=== PATIENT | male | born 1965 | race Caucasian/White ===

== ENCOUNTER → 2017-02-20 | Outpatient (CLI) | payer MEDICARE ==
[2017-02-20 19:41] LABS: Appearance,CSF Clear
[2017-02-22 14:26] LABS: Immunoglobulin G 789 mg/dL (700 - 1600)
== END | disposition home or self-care (01) ==
LOC: LABWHC1 08:25
PROVIDERS: ATTEND Physician Assistant
DX: G35 Multiple sclerosis (principal)
CPT/HCPCS: 36415; 82040; 82042; 82784; 83873; 83916; 84157; 87476; 88108; 89050

== ENCOUNTER 2017-02-22 16:05 | Emergency (ER) | payer MEDICARE ==
[2017-02-22 16:17] VITALS: TEMP 98.3
[2017-02-22] MEDS ORDERED: CAFFEINE-SODIUM BENZOATE 500 MG in SODIUM CHLORIDE 0.9% 1,000 ML IVPB ONE (16:47)
[2017-02-22] MEDS ORDERED: MORPHINE SULFATE 4 MG/ML SYRINGE IV STA (16:48)
[2017-02-22] MEDS ORDERED: SODIUM CHLORIDE 0.9% 1,000 ML IV STA (16:48)
--- NOTE | 2017-02-22 16:51 | ED ---
General Adult HPI - General Chief complaint: Headache Stated complaint: Headache Time Seen by Provider: 02/22/17 16:31 Source: patient, RN notes reviewed Mode of arrival: ambulatory Limitations: no limitations - History of Present Illness Initial comments: 51-year-old male presents to the emergency department with a chief complaint of spinal headache. Patient had a lobar puncture by Dr. Carlin a Sunday. Patient states that and left he is laying flat he continues to have a headache. Patient states he does not follow-up with Dr. Kate and he is here. Patient states that he is not having any other symptoms. Patient denies any numbness and tingling in the legs. Patient denies any fever chills. Patient denies any cough cold symptoms. Patient denies any back pain with this. Patient was concerned due to his symptoms he thought that he should be evaluated.Patient denies any recent fever, chills, shortness of breath, chest pain, back pain, abdominal pain, nausea vomiting, numbness or tingling, dysuria or hematuria, constipation or diarrhea, visual changes, or any other current symptoms. - Related Data Home Medications Medication Instructions Recorded Confirmed Mirtazapine [Remeron] 30 mg PO HS 11/27/13 02/22/17 Pantoprazole Sodium [Protonix] 40 mg PO DAILY 11/27/13 02/22/17 clonazePAM [KlonoPIN] 1 mg PO BID 11/27/13 02/22/17 risperiDONE [RisperDAL] 1 mg PO HS 11/27/13 02/22/17 HYDROcodone/APAP 7.5-325MG [[place] 1 tab PO DAILY PRN 09/15/15 02/22/17 7.5-325] Morphine Sulfate ER [Ms Contin] 30 mg PO BID 09/15/15 02/22/17 rOPINIRole HCL [Requip] 0.5 mg PO HS 10/14/15 02/22/17 Baclofen [Lioresal] 20 mg PO TID 12/21/15 02/22/17 Allergies Allergy/AdvReac Type Severity Reaction Status Date / Time No Known Allergies Allergy Verified 02/22/17 16:30 Review of Systems ROS Statement: Those systems with pertinent positive or pertinent negative responses have been documented in the HPI. ROS Other: All systems not noted in ROS Statement are negative. Past Medical History Past Medical History: Eye Disorder, Musculoskeletal Disorder, Neurologic Disorder Additional Past Medical History / Comment(s): Multiple sclerosis. currently on steriod dose pack for bursitis. USES A CANE TO AMBULATE, HAS DOUBLE VISION. CHRONIC BACK NECK PAIN. HAD SPINAL STIMULATOR, THEN REMOVED; Migraine headache. Crohn's disease. History of Any Multi-Drug Resistant Organisms: MRSA Date of last positivie culture/infection: 2014 MDRO Source:: lower back Past Surgical History: Appendectomy, Back Surgery, Bowel Resection, Hernia Repair Additional Past Surgical History / Comment(s): ILEOCECTOMY. CERVICAL FUSION. SPINAL STIMULATOR implantation, revision and removal. FOREIGN BODY REMOVED RT CHEST WALL. 10/18/2015 wire removed from back. (from stimulator) Past Anesthesia/Blood Transfusion Reactions: Previous Problems w/ Anesthesia Additional Past Anesthesia/Blood Transfusion Reaction / Comment(s): STATES TAKES A LONG TIME TO WAKE UP Past Psychological History: Anxiety, Depression Smoking Status: Current every day smoker Past Alcohol Use History: None Reported Past Drug Use History: None Reported - Past Family History Father Family Medical History: Cancer, Diabetes Mellitus Additional Family Medical History / Comment(s): CABG-TRIPLE BYPASS, Mother Family Medical History: Cancer, CVA/TIA, Diabetes Mellitus Additional Family Medical History / Comment(s): Stroke General Exam - General Exam Comments Initial Comments: General: The patient is awake and alert, in no distress, and does not appear acutely ill. Eye: Pupils are equal, round and reactive to light, extra-ocular movements are intact; there is normal conjunctiva bilaterally. No signs of icterus. Ears, nose, mouth and throat: There are moist mucous membranes. Neck: The neck is supple, there is no tenderness. Cardiovascular: There is a regular rate and rhythm. No murmur, rub or gallop is appreciated. Respiratory: Lungs are clear to auscultation, respirations are non-labored, breath sounds are equal. No wheezes, stridor, rales, or rhonchi. Gastrointestinal: Soft, non-distended, non-tender abdomen without masses or organomegaly noted. There is no rebound or guarding present. No CVA tenderness. Bowel sounds are unremarkable. Back: There is no tenderness to palpation in the midline. There is no obvious deformity. No rashes noted. Musculoskeletal: Normal ROM, no tenderness, There is no pedal edema. There is no calf tenderness or swelling. Sensation intact. Pulses equal bilaterally 2+. Neurological: CN II-XII intact, There are no obvious motor or sensory deficits. Coordination appears grossly intact. Speech is normal. Skin: Skin is warm and dry and no rashes or lesions are noted. Psychiatric: Cooperative, appropriate mood & affect, normal judgment. Limitations: no limitations Course Vital Signs 02/22/17 02/22/17 02/22/17 16:14 18:06 19:05 Temperature 98.3 F Pulse Rate 70 57 L 59 L Respiratory 18 18 18 Rate Blood Pressure 116/69 100/59 113/62 O2 Sat by Pulse 99 97 99 Oximetry - Reevaluation(s) Reevaluation #1: 02/22/17 19:09 Patient was reassessed and states that he is feeling better at this time. Medical Decision Making - Medical Decision Making 51-year-old male presents emergency Department with a chief complaint of headache following lumbar puncture. Anesthesiology was contacted by Dr. Harris and they state they will not do the blood patch at this time due to the fact they did not do the procedure At this time patient was given medications that did somewhat help his headache. We discussed seems to follow-up with Dr. Carlin for additional care. Patient states that Dr. Carlin is out of town until Sunday. He was informed that if tomorrow he wakes up with the same type symptoms return to the emergency department in the morning for further care. We discussed return parameters all patient's questions. They state John management plan. At this time they will be discharged home. Disposition Clinical Impression: Spinal headache Disposition: HOME SELF-CARE Condition: Stable Instructions: Acute Headache (ED) Additional Instructions: Please use medication as discussed. Please follow up with family doctor if symptoms have not improved over the next two days. Please return to the emergency room if your symptoms increase or worsen or for any other concerns. Referrals: Mack Fox DO [Primary Care Provider] - 1-2 days Juan Carlin MD [STAFF PHYSICIAN] - 1-2 days
[2017-02-22] MEDS ORDERED: METOCLOPRAMIDE 5 MG/ML 2 ML VIAL IVP STA (18:07)
[2017-02-22] MEDS ORDERED: HYDROmorphone 1 MG/ML 1 ML SYRINGE IVP STA ×2 (18:07→19:17)
[2017-02-22] MEDS ORDERED: diphenhydrAMINE 50 MG/ML 1 ML VIAL IVP STA (18:07)
[2017-02-22 19:59] VITALS: BP 112/70; PULSE 64; RESP 16
== END 2017-02-22 20:09 | disposition home or self-care (01) ==
LOC: EC 16:05
DX: G97.1 Other reaction to spinal and lumbar puncture (principal); F32.9 Major depressive disorder, single episode, unspecified; F41.9 Anxiety disorder, unspecified; F17.200 Nicotine dependence, unspecified, uncomplicated; Z79.891 Long term (current) use of opiate analgesic; Z79.899 Other long term (current) drug therapy
CPT/HCPCS: 99284; 96365; 96375 ×4; 96376; J2270; J1200; J2765; J1170

== ENCOUNTER → 2017-02-23 | Outpatient (CLI) | payer MEDICARE ==
--- NOTE | 2017-02-24 00:28 | MR ---
EXAMINATION TYPE: MR brain/cspine wo/w DATE OF EXAM: 02/23/2017 COMPARISON: 10/20/1715 HISTORY: Follow up for MS. TECHNIQUE: Multiplanar, multisequence images of the brain and brainstem is performed without and with IV contras t, utilizing 7.5 mL intravenous Gadavist . FINDINGS: There are numerous tiny foci that measure 3 to 4 mm at the sánchez-white matter junction of deanna th cerebral hemispheres and more noticeable in the frontal lobes. The total number is approximately 2 0. I see no lesions around the lateral ventricles. The corpus callosum appears normal. There is no mi dline shift. There is no sign of intracranial hemorrhage. Ventricles have normal size. Brainstem is i ntact. Sella turcica appears normal. The contrast images show no pathologic enhancement. There is no evidence of acute cortical infarct. The cervical vertebra fairly normal alignment. There is anterior fusion surgery at C6-7. Cervical spi nal cord has fairly normal signal pattern. There is no evidence of edema. There is no spinal stenosis . There is no pathologic enhancement in the cervical spine. IMPRESSION: Numerous high relatively small signal foci on the T2 and FLAIR images at the sánchez-white m atter junction predominantly in the frontal lobes. This appears stable compared to old MR scan. This is not a typical pattern for demyelinating disease. There is a normal-appearing corpus callosum. Normal MRI scan of the cervical spine for demyelinating disease. Previous anterior fusion surgery. No spinal stenosis. No fracture. No significant change compared to old exam.
== END | disposition home or self-care (01) ==
LOC: RADMRIMAIN 20:06
PROVIDERS: ATTEND Physician Assistant
DX: G35 Multiple sclerosis (principal); M54.2 Cervicalgia; Z98.1 Arthrodesis status
CPT/HCPCS: 70553; 72156; A9581

== ENCOUNTER 2018-03-16 14:21 | Inpatient (IN) | payer MEDICARE ==
[2018-03-16] MEDS ORDERED: HYDROmorphone 1 MG/ML 1 ML SYRINGE IVP STA (15:42)
[2018-03-16] MEDS ORDERED: ONDANSETRON 4 MG/2 ML VIAL IVP STA (15:42)
[2018-03-16] MEDS ORDERED: ACETAMINOPHEN TAB 500 MG TAB PO STA (15:43)
[2018-03-16] MEDS: SODIUM CHLORIDE 0.9% 500 ML IV SCH ×2 (15:53→15:54)
[2018-03-16 15:54] LABS: Basophils % (A) 0 %; Eosinophils % (A) 0 %; HCT 39.8 % (39.0-53.0); HGB 13.3 gm/dL (13.0-17.5); Lymphocytes # (A) 2.3 k/uL (1.0-4.8); Lymphocytes % (A) 16 %; MCH 31.1 pg (25.0-35.0); MCHC 33.4 g/dL (31.0-37.0); MCV 93.2 fL (80.0-100.0); Mean Platelet Volume 7.2; Monocytes % (A) 7 %; Neutrophils # (A) 10.8 k/uL (1.3-7.7); Neutrophils % (A) 75 %; Platelet Count 301 k/uL (150-450); RBC 4.27 m/uL (4.30-5.90); RDW 12.8 % (11.5-15.5); WBC 14.5 k/uL (3.8-10.6)
[2018-03-16 16:04] LABS: ALT 27 U/L (21-72); AST 57 U/L (17-59); Albumin 3.8 g/dL (3.5-5.0); Alkaline Phosphatase 87 U/L (38-126); Anion Gap 10 mmol/L; Blood Urea Nitrogen 6 mg/dL (9-20); Calcium 9.7 mg/dL (8.4-10.2); Carbon Dioxide 25 mmol/L (22-30); Chloride 104 mmol/L (98-107); Glucose 92 mg/dL (74-99); Partial Thromboplastin Time 23.8 sec (22.0-30.0); Potassium 3.7 mmol/L (3.5-5.1); Prothrombin Time 9.8 sec (9.0-12.0); Sodium 139 mmol/L (137-145); Total Bilirubin 0.2 mg/dL (0.2-1.3); Total Protein 6.4 g/dL (6.3-8.2)
[2018-03-16 16:17] LABS: Appearance,Urine Clear (Clear); Bilirubin,Urine Negative (Negative); Blood,Urine Negative (Negative); Color,Urine Yellow; Glucose,Urine (UA) Negative (Negative); Ketones,Urine Negative (Negative); Leukocyte Esterase,Urine Negative (Negative); Nitrite,Urine Negative (Negative); Protein,Urine Negative (Negative); Specific Gravity,Urine 1.012 (1.001-1.035); Urobilinogen,Urine <2.0 mg/dL (<2.0)
--- NOTE | 2018-03-16 16:35 | XR ---
EXAMINATION TYPE: XR hand complete RT DATE OF EXAM: 03/16/2018 COMPARISON: NONE HISTORY: Pain and swelling TECHNIQUE: 3 views FINDINGS: There is soft tissue swelling on the dorsum of the hand. Metacarpals are intact. I see no f racture nor dislocation. There are no erosions. IMPRESSION: Soft tissue swelling. No fracture seen.
[2018-03-16] MEDS ORDERED: PIPERACILLIN-TAZOBACTAM 3.375 GM in DEXTROSE/WATER 1 50ML.BAG IVPB STA (16:36)
--- NOTE | 2018-03-16 16:37 | XR ---
EXAMINATION TYPE: XR elbow complete RT DATE OF EXAM: 03/16/2018 COMPARISON: 06/18/2017 HISTORY: Pain and swelling TECHNIQUE: 3 views FINDINGS: There are skin yvette over the posterior ulna. I see no fracture nor dislocation. Joint sp aces are normal. There is satisfactory healing of the proximal ulna fracture compared to old exam. IMPRESSION: Satisfactory healing. No fracture seen. No complicating process seen.
--- NOTE | 2018-03-16 16:56 | ED ---
Upper Extremity HPI - General Chief Complaint: Extremity Injury, Upper Stated Complaint: Swelling S/p surgery Time Seen by Provider: 03/16/18 14:45 Source: patient, RN notes reviewed, old records reviewed Mode of arrival: ambulatory Limitations: no limitations - History of Present Illness Initial Comments: Patient is a 52-year-old male with chief complaint of left arm and elbow and hand swelling. Patient reports that yesterday he had plates and screws removed from his right elbow after a fracture. He reports he later developed bursitis and Patient had these removed by Dr. Hu yesterday. He states that since the surgery he came home he had an Cristofer wrap on the arm. He states that today he noticed some blistering in severe pain within the forearm as well as swelling extending into the hand. Patient reports severe pain with any range of motion of the elbow or wrist or hand. Patient denies any fever but had does have chills. MD Complaint: Injury to:: right - Related Data Home Medications Medication Instructions Recorded Confirmed Mirtazapine [Remeron] 30 mg PO HS 11/27/13 03/16/18 risperiDONE [RisperDAL] 2 mg PO HS 11/27/13 03/16/18 Baclofen [Lioresal] 20 mg PO TID 12/21/15 03/16/18 rOPINIRole HCL [Requip] 0.5 mg PO HS 06/18/17 03/16/18 HYDROcodone/APAP 5-325MG [[place] 2 tab PO Q6H PRN 03/16/18 03/16/18 5-325] Morphine Sulfate ER [Ms Contin] 15 mg PO Q12HR 03/16/18 03/16/18 Allergies Allergy/AdvReac Type Severity Reaction Status Date / Time No Known Allergies Allergy Verified 03/16/18 14:54 Review of Systems ROS Statement: Those systems with pertinent positive or pertinent negative responses have been documented in the HPI. ROS Other: All systems not noted in ROS Statement are negative. Past Medical History Past Medical History: Eye Disorder, Musculoskeletal Disorder, Neurologic Disorder Additional Past Medical History / Comment(s): Multiple sclerosis USES A CANE TO AMBULATE, falls. has had in past occasional DOUBLE VISION. CHRONIC BACK NECK PAIN. HAD SPINAL STIMULATOR, THEN REMOVED; Migraine headache. Crohn's disease.lt ear [place] History of Any Multi-Drug Resistant Organisms: MRSA Date of last positivie culture/infection: 2014 MDRO Source:: lower back Past Surgical History: Appendectomy, Back Surgery, Bowel Resection, Hernia Repair Additional Past Surgical History / Comment(s): CERVICAL FUSION. SPINAL STIMULATOR implantation, revision and removal. FOREIGN BODY REMOVED RT CHEST WALL. 10/18/2015 wire removed from back. (from stimulator) Past Anesthesia/Blood Transfusion Reactions: Previous Problems w/ Anesthesia Additional Past Anesthesia/Blood Transfusion Reaction / Comment(s): STATES TAKES A LONG TIME TO WAKE UP Past Psychological History: Depression Smoking Status: Current every day smoker Past Alcohol Use History: None Reported Past Drug Use History: None Reported - Past Family History Father Family Medical History: Cancer, Diabetes Mellitus Additional Family Medical History / Comment(s): CABG-TRIPLE BYPASS, Mother Family Medical History: Cancer, CVA/TIA, Diabetes Mellitus Additional Family Medical History / Comment(s): Stroke General Exam - General Exam Comments Initial Comments: This Patient is a 52-year-old male. Alert and oriented. Appears in moderate discomfort. Limitations: no limitations General appearance: alert, in no apparent distress Head exam: Present: atraumatic, normocephalic, normal inspection Eye exam: Present: normal appearance, PERRL, EOMI. Absent: scleral icterus, conjunctival injection, periorbital swelling ENT exam: Present: normal exam, mucous membranes moist Neck exam: Present: normal inspection. Absent: tenderness, meningismus, lymphadenopathy Respiratory exam: Present: normal lung sounds bilaterally. Absent: respiratory distress, wheezes, rales, rhonchi, stridor Cardiovascular Exam: Present: regular rate, normal rhythm, normal heart sounds. Absent: systolic murmur, diastolic murmur, rubs, gallop, clicks Extremities exam: Present: full ROM, normal capillary refill. Absent: normal inspection, tenderness, pedal edema, joint swelling, calf tenderness Right Elbow exam: Present: swelling, other (Patient has a blisterlike lesions over the skin. Each measuring less than 1 cm. Sporadic throughout the elbow through the distal forearm.). Absent: normal inspection (Hogan is a well- appearing incision site with gauze dressing over the elbow at this time.), full ROM (Patient is pain-free to motion of the elbow. Evidence of swelling.) Forearm Wrist exam: Present: tenderness, swelling. Absent: normal inspection, full ROM Hand Wrist exam: Present: full ROM. Absent: normal inspection (Patient has swelling over the hand. Pain with any range of motion.) Neurosensory exam: Present: 2-point discrimination Vascular: Present: normal capillary refill, radial pulse, ulnar pulse Back exam: Present: normal inspection Neurological exam: Present: alert, oriented X3, CN II-XII intact Psychiatric exam: Present: normal affect, normal mood Skin exam: Present: warm, dry, intact, normal color. Absent: rash Course Vital Signs 03/16/18 03/16/18 03/16/18 14:30 16:00 17:32 Temperature 97.8 F 97.5 F L 98.2 F Pulse Rate 79 63 61 Respiratory 18 18 18 Rate Blood Pressure 117/63 114/65 O2 Sat by Pulse 97 98 97 Oximetry Medical Decision Making - Medical Decision Making 53-year-old male presents emergency Department chief complaint of severe pain in the right elbow one day status post surgery by Dr. Hu. He had plates and screws removed after a fracture. He developed bursitis. Patient understands this is evidence of swelling of the elbow, as well as multiple blisterlike lesions over the hand and forearm. Patient's compartments are soft. Hand is swollen. Pulses obtained, We refill is less than 2 seconds. Patient was started on Zosyn due to elevated white blood cell count of 14,000, lactic acid of 2.1.. He has rigor while in the emergency department. No recorded temperature. Patient case discussed Dr. Lira. He also call Dr. Lira multiple times for coming to emergency department. Patient will be admitted at this time under his care. - Lab Data Result diagrams: 03/16/18 15:45 03/16/18 15:45 Lab Results 03/16/18 03/16/18 03/16/18 Range/Units 15:45 15:45 15:45 WBC 14.5 H (3.8-10.6) k/uL RBC 4.27 L (4.30-5.90) m/uL Hgb 13.3 (13.0-17.5) gm/dL Hct 39.8 (39.0-53.0) % MCV 93.2 (80.0-100.0) fL MCH 31.1 (25.0-35.0) pg MCHC 33.4 (31.0-37.0) g/dL RDW 12.8 (11.5-15.5) % Plt Count 301 (150-450) k/uL Neutrophils % 75 % Lymphocytes % 16 % Monocytes % 7 % Eosinophils % 0 % Basophils % 0 % Neutrophils # 10.8 H (1.3-7.7) k/uL Lymphocytes # 2.3 (1.0-4.8) k/uL Monocytes # 1.0 (0-1.0) k/uL Eosinophils # 0.0 (0-0.7) k/uL Basophils # 0.0 (0-0.2) k/uL PT (9.0-12.0) sec INR (<1.2) APTT (22.0-30.0) sec Sodium 139 (137-145) mmol/L Potassium 3.7 (3.5-5.1) mmol/L Chloride 104 (98-107) mmol/L Carbon Dioxide 25 (22-30) mmol/L Anion Gap 10 mmol/L BUN 6 L (9-20) mg/dL Creatinine 0.59 L (0.66-1.25) mg/dL Est GFR (CKD-EPI)AfAm >90 (>60 ml/min/1.73 sqM) Est GFR (CKD-EPI)NonAf >90 (>60 ml/min/1.73 sqM) Glucose 92 (74-99) mg/dL Plasma Lactic Acid Phong 2.1 H* (0.7-2.0) mmol/L Calcium 9.7 (8.4-10.2) mg/dL Total Bilirubin 0.2 (0.2-1.3) mg/dL AST 57 (17-59) U/L ALT 27 (21-72) U/L Alkaline Phosphatase 87 (38-126) U/L Total Protein 6.4 (6.3-8.2) g/dL Albumin 3.8 (3.5-5.0) g/dL Urine Color Urine Appearance (Clear) Urine pH (5.0-8.0) Ur Specific [place] (1.001-1.035) Urine Protein (Negative) Urine Glucose (UA) (Negative) Urine Ketones (Negative) Urine Blood (Negative) Urine Nitrite (Negative) Urine Bilirubin (Negative) Urine Urobilinogen (<2.0) mg/dL Ur Leukocyte Esterase (Negative) 03/16/18 03/16/18 Range/Units 15:45 15:50 WBC (3.8-10.6) k/uL RBC (4.30-5.90) m/uL Hgb (13.0-17.5) gm/dL Hct (39.0-53.0) % MCV (80.0-100.0) fL MCH (25.0-35.0) pg MCHC (31.0-37.0) g/dL RDW (11.5-15.5) % Plt Count (150-450) k/uL Neutrophils % % Lymphocytes % % Monocytes % % Eosinophils % % Basophils % % Neutrophils # (1.3-7.7) k/uL Lymphocytes # (1.0-4.8) k/uL Monocytes # (0-1.0) k/uL Eosinophils # (0-0.7) k/uL Basophils # (0-0.2) k/uL PT 9.8 (9.0-12.0) sec INR 1.0 (<1.2) APTT 23.8 (22.0-30.0) sec Sodium (137-145) mmol/L Potassium (3.5-5.1) mmol/L Chloride (98-107) mmol/L Carbon Dioxide (22-30) mmol/L Anion Gap mmol/L BUN (9-20) mg/dL Creatinine (0.66-1.25) mg/dL Est GFR (CKD-EPI)AfAm (>60 ml/min/1.73 sqM) Est GFR (CKD-EPI)NonAf (>60 ml/min/1.73 sqM) Glucose (74-99) mg/dL Plasma Lactic Acid Phong (0.7-2.0) mmol/L Calcium (8.4-10.2) mg/dL Total Bilirubin (0.2-1.3) mg/dL AST (17-59) U/L ALT (21-72) U/L Alkaline Phosphatase (38-126) U/L Total Protein (6.3-8.2) g/dL Albumin (3.5-5.0) g/dL Urine Color Yellow Urine Appearance Clear (Clear) Urine pH 6.0 (5.0-8.0) Ur Specific [place] 1.012 (1.001-1.035) Urine Protein Negative (Negative) Urine Glucose (UA) Negative (Negative) Urine Ketones Negative (Negative) Urine Blood Negative (Negative) Urine Nitrite Negative (Negative) Urine Bilirubin Negative (Negative) Urine Urobilinogen <2.0 (<2.0) mg/dL Ur Leukocyte Esterase Negative (Negative) - Radiology Data Radiology results: report reviewed Ultrasound is negative for DVT. X-ray of the hand shows evidence of soft tissue swelling. Elbow x-ray shows well appearing osseous structures. No evidence of any acute process. Disposition Clinical Impression: Swelling of right upper extremity, Leukocytosis, Status post surgery Disposition: ADMITTED IP TO THIS [facility] Condition: Stable Is patient prescribed a controlled substance at d/c from ED?: No Referrals: Mack Fox DO [Primary Care Provider] - 1-2 days Time of Disposition: 18:11
--- NOTE | 2018-03-16 17:20 | US ---
EXAMINATION TYPE: US venous doppler duplex UE RT DATE OF EXAM: 03/16/2018 COMPARISON: NONE CLINICAL HISTORY: Pain. Right arm and hand pain and swelling x 1 day following surgery SIDE PERFORMED: Right Right Arm: Appears negative for DVT IMPRESSION: There is patency of the subclavian axillary brachial vein. There is no evidence of deep venous thromb osis.
[2018-03-16] MEDS ORDERED: IBUPROFEN 400 MG TAB PO PRN (18:12)
[2018-03-16] MEDS ORDERED: KETOROLAC 30 MG/ML 1 ML VIAL IVP PRN (18:12)
[2018-03-16] MEDS ORDERED: ONDANSETRON 4 MG/2 ML VIAL IVP PRN (18:12)
[2018-03-16] MEDS ORDERED: ACETAMINOPHEN TAB 325 MG TAB PO PRN (18:12)
[2018-03-16] MEDS ORDERED: NALOXONE 0.4 MG/ML 1 ML VIAL IV PRN (18:12)
[2018-03-16] MEDS: PIPERACILLIN-TAZOBACTAM 3.375 GM in DEXTROSE/WATER 1 50ML.BAG IVPB SCH ×2 (18:29→23:39)
[2018-03-16] MEDS: SODIUM CHLORIDE 0.9% 1,000 ML IV SCH (18:30)
[2018-03-16] MEDS: HYDROmorphone 1 MG/ML 1 ML SYRINGE IVP PRN ×2 (18:31→22:30)
[2018-03-16 20:04] VITALS: TEMP 97.9
[2018-03-16] MEDS ORDERED: risperiDONE 1 MG TAB PO SCH (21:00)
[2018-03-16] MEDS ORDERED: MIRTAZAPINE 15 MG TAB PO SCH (21:00)
[2018-03-17] MEDS: HYDROmorphone 1 MG/ML 1 ML SYRINGE IVP PRN ×3 (01:51→08:32)
[2018-03-17] MEDS: SODIUM CHLORIDE 0.9% 1,000 ML IV SCH (04:49)
[2018-03-17 05:59] VITALS: BP 108/69; PULSE 67; RESP 18
[2018-03-17] MEDS: PIPERACILLIN-TAZOBACTAM 3.375 GM in DEXTROSE/WATER 1 50ML.BAG IVPB SCH (08:30)
[2018-03-17] MEDS ORDERED: PANTOPRAZOLE 40 MG/10 ML VIAL IV SCH (09:00)
--- NOTE | 2018-03-17 09:46 | P.HPOR ---
History of Present Illness H&P Date: 03/17/18 The patient is a 52-year-old male who is a patient of Dr. Polk. The patient sustained an isolated right olecranon fracture this past July and underwent open reduction and internal fixation. He had symptomatic hardware and a painful bursa developed over the olecranon. He underwent hardware removal this past Sunday as an outpatient procedure. On Sunday he developed significant pain, swelling, and blistering throughout his right arm. We initially attempted to improve his symptoms by loosening the dressing and elevating his arm. He had continued pain and was sent to the emergency department. He had an elevated white count and appeared to be in generalized malaise according to the emergency department so he was admitted overnight for observation. This morning he is improved but continues to have pain and swelling in the arm. He says the swelling has gone down significantly in the blistering has resolved. He denies fevers or chills. Past Medical History Past Medical History: Eye Disorder, Musculoskeletal Disorder, Neurologic Disorder Additional Past Medical History / Comment(s): Multiple sclerosis USES A CANE TO AMBULATE, falls. has had in past occasional DOUBLE VISION. CHRONIC BACK NECK PAIN. HAD SPINAL STIMULATOR, THEN REMOVED; Migraine headache. Crohn's disease.lt ear [place] History of Any Multi-Drug Resistant Organisms: MRSA Date of last positivie culture/infection: 2014 MDRO Source:: lower back Past Surgical History: Appendectomy, Back Surgery, Bowel Resection, Hernia Repair Additional Past Surgical History / Comment(s): CERVICAL FUSION. SPINAL STIMULATOR implantation, revision and removal. FOREIGN BODY REMOVED RT CHEST WALL. 10/18/2015 wire removed from back. (from stimulator) Past Anesthesia/Blood Transfusion Reactions: Previous Problems w/ Anesthesia Additional Past Anesthesia/Blood Transfusion Reaction / Comment(s): STATES TAKES A LONG TIME TO WAKE UP Past Psychological History: Depression Additional Psychological History / Comment(s): pt lives with and 2 children. uses cane when up. no home cares services,. Smoking Status: Current every day smoker Past Alcohol Use History: None Reported Additional Past Alcohol Use History / Comment(s): Smoker Since Age 13, smoked 1ppd now down to 1/2 ppd. Past Drug Use History: None Reported - Past Family History Father Family Medical History: Cancer, Diabetes Mellitus Additional Family Medical History / Comment(s): CABG-TRIPLE BYPASS, Mother Family Medical History: Cancer, CVA/TIA, Diabetes Mellitus Additional Family Medical History / Comment(s): Stroke Medications and Allergies Home Medications Medication Instructions Recorded Confirmed Type Mirtazapine [Remeron] 30 mg PO HS 11/27/13 03/16/18 History risperiDONE [RisperDAL] 2 mg PO HS 11/27/13 03/16/18 History Baclofen [Lioresal] 20 mg PO TID 12/21/15 03/16/18 History rOPINIRole HCL [Requip] 0.5 mg PO HS 06/18/17 03/16/18 History HYDROcodone/APAP 5-325MG [[place] 2 tab PO Q6H PRN 03/16/18 03/16/18 History 5-325] Morphine Sulfate ER [Ms Contin] 15 mg PO Q12HR 03/16/18 03/16/18 History Allergies Allergy/AdvReac Type Severity Reaction Status Date / Time No Known Allergies Allergy Verified 03/16/18 14:54 Physical Examination On exam the patient is in no apparent distress and is alert and able to answer questions. His head is normocephalic and atraumatic. He demonstrates nonlabored breathing with symmetric chest expansion. His abdomen is soft and nonobese. A focused examination of the right arm was conducted. On inspection there is mild swelling throughout the arm but no blistering. There is a healing incision over the olecranon with yvette in place. There is swelling within the olecranon bursa. There is no blistering and only minimal erythema. The arm and forearm are soft and easily compressible. There is no pain with passive range of motion of the wrist or fingers. Results - Labs Labs: Abnormal Lab Results - Last 24 Hours (Table) 03/16/18 03/16/18 03/16/18 Range/Units 15:45 15:45 15:45 WBC 14.5 H (3.8-10.6) k/uL RBC 4.27 L (4.30-5.90) m/uL Neutrophils # 10.8 H (1.3-7.7) k/uL BUN 6 L (9-20) mg/dL Creatinine 0.59 L (0.66-1.25) mg/dL Plasma Lactic Acid Phong 2.1 H* (0.7-2.0) mmol/L Microbiology - Last 24 Hours (Table) 03/16/18 15:50 Urine Culture - Preliminary Urine,Voided H & H 03/16/18 Range/Units 15:45 Hgb 13.3 (13.0-17.5) gm/dL Hct 39.8 (39.0-53.0) % Coagulation 03/16/18 Range/Units 15:45 INR 1.0 (<1.2) Result Diagrams: 03/16/18 15:45 03/16/18 15:45 Assessment and Plan (1) Status post surgery Current Visit: Yes Status: Acute Code(s): Z98.890 - OTHER SPECIFIED POSTPROCEDURAL STATES SNOMED Code(s): 747613706 (2) Swelling of right upper extremity Current Visit: Yes Status: Acute Code(s): M79.89 - OTHER SPECIFIED SOFT TISSUE DISORDERS SNOMED Code(s): 170640469 (3) Fracture of right elbow Current Visit: No Status: Acute Priority: Medium Code(s): S42.401A - UNSP FRACTURE OF LOWER END OF RIGHT HUMERUS, INIT SNOMED Code(s): 478904671 Plan: The patient has improved with IV pain medication and antibiotics. He feels better this morning and his swelling is significantly improved. We will plan on discharging him home on oral antibiotics. The patient is to follow up with Dr. Hu in the office in the next 1-2 days.
== END 2018-03-17 12:34 | disposition home or self-care (01) | DRG 556 ==
LOC: EC 14:21 → 4MS4W 18:15
PROVIDERS: ADMIT Orthopaedic Surgery; ATTEND Orthopaedic Surgery
DX: M79.89 Other specified soft tissue disorders (principal); K50.90 Crohn's disease, unspecified, without complications; D72.829 Elevated white blood cell count, unspecified; F17.210 Nicotine dependence, cigarettes, uncomplicated; F32.9 Major depressive disorder, single episode, unspecified; G35 Multiple sclerosis; G43.909 Migraine, unspecified, not intractable, without status migrainosus; H53.2 Diplopia; M54.2 Cervicalgia; G89.29 Other chronic pain; M54.9 Dorsalgia, unspecified; H91.92 Unspecified hearing loss, left ear; Z79.899 Other long term (current) drug therapy; Z86.14 Personal history of Methicillin resistant Staphylococcus aureus infection; Z91.81 History of falling; Z90.49 Acquired absence of other specified parts of digestive tract; Z82.3 Family history of stroke; Z83.3 Family history of diabetes mellitus; Z82.49 Family history of ischemic heart disease and other diseases of the circulatory system; Z80.9 Family history of malignant neoplasm, unspecified
CPT/HCPCS: 36415; 80053; 81003; 83605; 85025; 85610; 85730; 87040; 87086; 94760; 96365; 96375; 96376; 99285

== ENCOUNTER 2020-04-17 17:30 | Observation (INO) | payer MEDICARE ==
[2020-04-17] MEDS ORDERED: ASPIRIN 81 MG PO STA (18:24)
--- NOTE | 2020-04-17 18:27 | ED ---
Chest Pain HPI - General Chief Complaint: Chest Pain Stated Complaint: chest pain Time Seen by Provider: 04/17/20 17:37 Source: patient Mode of arrival: ambulatory Limitations: no limitations - History of Present Illness Initial Comments: The patient is a 54-year-old male with past history of MS, COPD who presents emergency room with reported sudden onset of chest pain which started approximately 2 hours ago. Reports that he was at home, sitting down when he had sudden onset of the pain. Is located over the right head his chest and radiates to his right arm and right jaw. Pain was 10 out of 10 presentation. Reports that his only mildly improved. He did take a baby aspirin. No ripping or tearing sensation to his back. Pain is not reproducible. Denies any unilateral numbness or tingling. Does admit to pleuritic chest pain. No history of DVT or PE. No calf pain or swelling. No family history of blood clotting disorders. Denies fevers, cough or hemoptysis. Denies any associated shortness of breath. No nausea or vomiting. No other alleviating, precipitating or modifying factors - Related Data Home Medications Medication Instructions Recorded Confirmed Baclofen [Lioresal] 20 mg PO BID 12/21/15 04/17/20 rOPINIRole HCL [Requip] 0.5 mg PO HS 06/18/17 04/17/20 DULoxetine HCL [Cymbalta] 30 mg PO DAILY 04/17/20 04/17/20 HYDROcodone/APAP 7.5-325MG [[place] 1 tab PO TID PRN 04/17/20 04/17/20 7.5-325] Mirtazapine [Remeron] 30 mg PO HS 04/17/20 04/17/20 Pantoprazole Sodium [Protonix] 40 mg PO DAILY 04/17/20 04/17/20 risperiDONE 3 mg PO HS 04/17/20 04/17/20 Previous Rx's Medication Instructions Recorded Ibuprofen [Motrin] 800 mg PO TID #15 tab 04/20/20 Nicotine 14Mg/24Hr Patch [Habitrol] 1 patch TRANSDERM DAILY #30 patch 04/20/20 predniSONE 10 mg PO DIRECTED #30 tab 04/20/20 Allergies Allergy/AdvReac Type Severity Reaction Status Date / Time No Known Allergies Allergy Verified 04/17/20 18:27 Review of Systems ROS Statement: Those systems with pertinent positive or pertinent negative responses have been documented in the HPI. ROS Other: All systems not noted in ROS Statement are negative. EKG Findings - EKG Comments: EKG Findings:: EKG demonstrates sinus rhythm with occasional PVCs. Rate of 77. When necessary interval 148. QRS 82. QTC of 423. No acute ST segment elevations or depressions concerning for ischemic changes Past Medical History Past Medical History: Eye Disorder, Musculoskeletal Disorder, Neurologic Disorder Additional Past Medical History / Comment(s): Multiple sclerosis USES A CANE TO AMBULATE, falls. has had in past occasional DOUBLE VISION. CHRONIC BACK NECK PAIN. HAD SPINAL STIMULATOR, THEN REMOVED; Migraine headache. Crohn's disease.lt ear [place] History of Any Multi-Drug Resistant Organisms: MRSA Date of last positivie culture/infection: 2014 MDRO Source:: lower back Past Surgical History: Appendectomy, Back Surgery, Bowel Resection, Hernia Repair Additional Past Surgical History / Comment(s): CERVICAL FUSION. SPINAL STIMULATOR implantation, revision and removal. FOREIGN BODY REMOVED RT CHEST WALL. 10/18/2015 wire removed from back. (from stimulator) Past Anesthesia/Blood Transfusion Reactions: Previous Problems w/ Anesthesia Additional Past Anesthesia/Blood Transfusion Reaction / Comment(s): STATES TAKES A LONG TIME TO WAKE UP Past Psychological History: Depression Smoking Status: Current every day smoker Past Alcohol Use History: None Reported Past Drug Use History: None Reported - Past Family History Father Family Medical History: Cancer, Diabetes Mellitus Additional Family Medical History / Comment(s): CABG-TRIPLE BYPASS, Mother Family Medical History: Cancer, CVA/TIA, Diabetes Mellitus Additional Family Medical History / Comment(s): Stroke General Exam Limitations: no limitations General appearance: alert, in no apparent distress Head exam: Present: atraumatic, normocephalic, normal inspection Eye exam: Present: normal appearance, PERRL, EOMI. Absent: scleral icterus, conjunctival injection, periorbital swelling ENT exam: Present: normal exam, mucous membranes moist Neck exam: Present: normal inspection. Absent: tenderness, meningismus, lymphadenopathy Respiratory exam: Present: normal lung sounds bilaterally. Absent: respiratory distress, wheezes, rales, rhonchi, stridor Cardiovascular Exam: Present: regular rate, normal rhythm, normal heart sounds. Absent: systolic murmur, diastolic murmur, rubs, gallop, clicks GI/Abdominal exam: Present: soft, normal bowel sounds. Absent: distended, tenderness, guarding, rebound, rigid Extremities exam: Present: normal inspection, full ROM, normal capillary refill. Absent: tenderness, pedal edema, joint swelling, calf tenderness Back exam: Present: normal inspection Neurological exam: Present: alert, oriented X3, CN II-XII intact Psychiatric exam: Present: normal affect, normal mood Skin exam: Present: warm, dry, intact, normal color. Absent: rash Course Vital Signs 04/17/20 04/17/20 04/17/20 17:32 18:55 20:06 Temperature 98.2 F Pulse Rate 79 67 70 Respiratory 20 12 12 Rate Blood Pressure 130/86 112/74 118/83 O2 Sat by Pulse 100 95 98 Oximetry 04/17/20 20:47 Temperature 98.1 F Pulse Rate 71 Respiratory 14 Rate Blood Pressure 123/75 O2 Sat by Pulse 98 Oximetry Chest Pain MDM - MDM Upon arrival the patient is placed in room 8. A thorough history and physical exam was performed. Peripheral IV is established. The patient is given 3 additional baby aspirin and a sublingual nitro. A 12-lead EKG was performed. Laboratory studies were conducted. D-dimer is elevated at 0.7. First troponin is negative. Chest x-ray was performed which does demonstrate pulmonary emphysema with some scarring and atelectasis. Because of his elevated d-dimer we did perform a CT angiography which demonstrates no heart failure. Some pleural and pulmonary scarring that has progressed compared old exams. Patient is reevaluated and continues to have persistent pain. She was given morphine for pain control. I did discuss the diagnosis, differential and treatment options. Due to his persistent pain and history of cardiac myopathy I did zuleyma mm[facility] hospital admission report patient did agree to. I discussed the case with Dr. Upton who agreed to admission. Patient is currently awaiting a bed on the floor Disposition Clinical Impression: Chest pain Disposition: ADMITTED IP TO THIS HOSP Condition: Stable Decision to Admit Reason: Admit from EC Decision Date: 04/17/20 Decision Time: 20:18
[2020-04-17] MEDS: NITROGLYCERIN SL TABS 0.4 MG TAB SUBLINGUAL STA ×2 (18:36→18:54)
[2020-04-17 18:51] LABS: Basophils # (A) 0.1 k/uL (0-0.2); Basophils % (A) 1 %; Eosinophils # (A) 0.2 k/uL (0-0.7); Eosinophils % (A) 2 %; HCT 44.8 % (39.0-53.0); HGB 14.5 gm/dL (13.0-17.5); Lymphocytes # (A) 2.6 k/uL (1.0-4.8); Lymphocytes % (A) 26 %; MCH 31.8 pg (25.0-35.0); MCHC 32.4 g/dL (31.0-37.0); MCV 97.9 fL (80.0-100.0); Mean Platelet Volume 7.8; Monocytes # (A) 0.8 k/uL (0-1.0); Monocytes % (A) 8 %; Neutrophils % (A) 61 %; Platelet Count 313 k/uL (150-450); RBC 4.58 m/uL (4.30-5.90); RDW 12.5 % (11.5-15.5); WBC 9.8 k/uL (3.8-10.6)
[2020-04-17 19:00] LABS: ALT 10 U/L (4-49); AST 19 U/L (17-59); African American GFR (CKD) >90 (>60 ml/min/1.73 sqM); Albumin 4.1 g/dL (3.5-5.0); Alkaline Phosphatase 92 U/L (38-126); Anion Gap 8 mmol/L; Blood Urea Nitrogen 8 mg/dL (9-20); Calcium 9.7 mg/dL (8.4-10.2); Carbon Dioxide 26 mmol/L (22-30); Chloride 103 mmol/L (98-107); Glucose 110 mg/dL (74-99); Non-African American GFR(CKD) >90 (>60 ml/min/1.73 sqM); Potassium 4.2 mmol/L (3.5-5.1); Sodium 137 mmol/L (137-145); Total Bilirubin 0.5 mg/dL (0.2-1.3); Total Protein 6.8 g/dL (6.3-8.2)
[2020-04-17 19:06] LABS: INR 0.9 (<1.2); Partial Thromboplastin Time 26.8 sec (22.0-30.0); Prothrombin Time 9.4 sec (9.0-12.0)
[2020-04-17 19:14] LABS: D-Dimer 0.7 mg/L FEU (<0.60)
--- NOTE | 2020-04-17 19:53 | CT ---
EXAMINATION TYPE: CT chest angio for PE DATE OF EXAM: 04/17/2020 COMPARISON: None HISTORY: chest pain, elevated d dimer CT DLP: 362.4 mGycm Automated exposure control for dose reduction was used. CONTRAST: Performed with IV Contrast, patient injected with 100 mL of Isovue 370. There are 3-D post processed images. There is diffuse bullous pulmonary emphysema. This is more noticeable in the right upper lobe. There is 1 cm calcified granuloma adjacent to the pleura in the lateral right upper lobe. There is some mil d scarring and atelectasis at the lung bases. There is no pleural effusion. Heart size is normal. The re is no pericardial effusion. Thoracic aorta is atheromatous. There is no aneurysm or dissection. There is normal contrast opacific ation of the pulmonary arteries. There are no filling defects. The bony thorax is intact. There is no compression fracture. IMPRESSION: No evidence of pulmonary embolism. Pulmonary emphysema with some scarring and atelectasis at the lung bases.
--- NOTE | 2020-04-17 19:57 | XR ---
EXAMINATION TYPE: XR chest 2V DATE OF EXAM: 04/17/2020 COMPARISON: NONE HISTORY: Elbow pain TECHNIQUE: 2 views FINDINGS: Heart is normal. Lungs are clear of consolidation. There are no hilar masses. The bony thor ax is intact. There are chest leads. There is some minimal pleural thickening at the posterior lung b ases on the lateral view. There is pleural thickening at the right lung apex. IMPRESSION: No heart failure. There is some pleural and pulmonary scarring that has progressed compar ed to old exams. Normal heart.
[2020-04-17] MEDS ORDERED: MORPHINE SULFATE 4 MG/ML SYRINGE IVP STA (20:00)
[2020-04-17] MEDS ORDERED: NALOXONE 0.4 MG/ML 1 ML VIAL IV PRN (20:18)
[2020-04-17] MEDS: MIRTAZAPINE 15 MG TAB PO SCH (22:11)
[2020-04-17] MEDS: BACLOFEN 10 MG TAB PO SCH (22:11)
[2020-04-17] MEDS: risperiDONE 1 MG TAB PO SCH (22:11)
[2020-04-17] MEDS: HYDROcodone/APAP 7.5-325MG 1 EACH TAB PO PRN (22:16)
[2020-04-18] MEDS: MORPHINE SULFATE 4 MG/ML SYRINGE IV PRN ×5 (03:03→21:18)
[2020-04-18 05:47] LABS: Basophils # (A) 0.1 k/uL (0-0.2); Basophils % (A) 1 %; Eosinophils # (A) 0.2 k/uL (0-0.7); Eosinophils % (A) 2 %; HCT 44.8 % (39.0-53.0); HGB 14.2 gm/dL (13.0-17.5); Lymphocytes # (A) 2.1 k/uL (1.0-4.8); Lymphocytes % (A) 28 %; MCH 31.9 pg (25.0-35.0); MCHC 31.6 g/dL (31.0-37.0); MCV 100.7 fL (80.0-100.0); Mean Platelet Volume 7.7; Monocytes # (A) 0.6 k/uL (0-1.0); Monocytes % (A) 8 %; Neutrophils # (A) 4.5 k/uL (1.3-7.7); Neutrophils % (A) 58 %; Platelet Count 281 k/uL (150-450); RBC 4.45 m/uL (4.30-5.90); RDW 12.6 % (11.5-15.5); WBC 7.7 k/uL (3.8-10.6)
[2020-04-18 06:03] LABS: African American GFR (CKD) >90 (>60 ml/min/1.73 sqM); Anion Gap 3 mmol/L; Blood Urea Nitrogen 11 mg/dL (9-20); Calcium 9.4 mg/dL (8.4-10.2); Carbon Dioxide 28 mmol/L (22-30); Chloride 104 mmol/L (98-107); Glucose 84 mg/dL (74-99); Non-African American GFR(CKD) >90 (>60 ml/min/1.73 sqM); Potassium 4.6 mmol/L (3.5-5.1); Sodium 135 mmol/L (137-145)
[2020-04-18] MEDS: BACLOFEN 10 MG TAB PO SCH ×2 (08:01→20:29)
[2020-04-18] MEDS: DULoxetine HCL 30 MG CAPSULE.DR PO SCH (08:01)
[2020-04-18] MEDS: PANTOPRAZOLE 40 MG TABLET PO SCH (08:01)
--- NOTE | 2020-04-18 08:16 | P.HPIM ---
History of Present Illness This is a pleasant 54 years old male with past medical history of multiple sclerosis and falls, uses a cane, chronic back and neck pain , Crohn's disease, migraine headache status post back surgery. Presents because of chest pain, depression and cigarette smoker. He is patient of Dr. Fox. Presents because of chest pain of one-day duration felt like sharp on the right side of the chest radiating to the right shoulder and neck about 10/10 in severity, increase by coughing and deep breathing. And associated with some cough and phlegm of opening collar and some shortness of breath. Patient smokes half pack per day and patient is counseled and he agrees to quit and agrees to nicotine patch. No alcohol or illicit tracts Patient denies depression or suicidal ideation Vitals are stable and labs including CBC, BMP are unremarkable, liver enzymes elevated and troponin 3 are negative with less than 0.012. CTA of the chest: No acute pulmonary embolism, emphysema granuloma and scarring. Chest x-ray: No acute process. EKG: Normal sinus rhythm at [address]-T changes. In the emergency room he was given 1 dose of aspirin to 43., Morphine and nitroglycerin Review of Systems CONSTITUTIONAL: No fever, no malaise, no fatigue. HEENT: No recent visual problems or hearing problems. Denied any sore throat. CARDIOVASCULAR: No orthopnea, PND, no palpitations, no syncope. PULMONARY: No chest wall tenderness, no hemoptysis. GASTROINTESTINAL: No diarrhea, no nausea, no vomiting, no abdominal pain. Normoactive bowel sounds. NEUROLOGICAL: No headaches, no weakness, no numbness. HEMATOLOGICAL: Denies any bleeding or petechiae. GENITOURINARY: Denies any burning micturition, frequency, or urgency. MUSCULOSKELETAL/RHEUMATOLOGICAL: Denies any joint pain, swelling, or any muscle pain. ENDOCRINE: Denies any polyuria or polydipsia. Past Medical History Past Medical History: Eye Disorder, Musculoskeletal Disorder, Neurologic Dis order Additional Past Medical History / Comment(s): Multiple sclerosis USES A CANE TO AMBULATE, falls. has had in past occasional DOUBLE VISION. CHRONIC BACK NECK PAIN. HAD SPINAL STIMULATOR, THEN REMOVED; Migraine headache. Crohn's disease.lt ear [place] History of Any Multi-Drug Resistant Organisms: MRSA Date of last positivie culture/infection: 2014 MDRO Source:: lower back Past Surgical History: Appendectomy, Back Surgery, Bowel Resection, Hernia Repair Additional Past Surgical History / Comment(s): CERVICAL FUSION. SPINAL STIMULATOR implantation, revision and removal. FOREIGN BODY REMOVED RT CHEST WALL. 10/18/2015 wire removed from back. (from stimulator) Past Anesthesia/Blood Transfusion Reactions: Previous Problems w/ Anesthesia Additional Past Anesthesia/Blood Transfusion Reaction / Comment(s): STATES TAKES A LONG TIME TO WAKE UP Past Psychological History: Depression Additional Psychological History / Comment(s): pt lives with and 2 children. uses cane when up. no home cares services,. Smoking Status: Current every day smoker Past Alcohol Use History: None Reported Additional Past Alcohol Use History / Comment(s): Smoker Since Age 13, smoked 1ppd now down to 1/2 ppd. Past Drug Use History: None Reported - Past Family History Father Family Medical History: Cancer, Diabetes Mellitus Additional Family Medical History / Comment(s): CABG-TRIPLE BYPASS, Mother Family Medical History: Cancer, CVA/TIA, Diabetes Mellitus Additional Family Medical History / Comment(s): Stroke Medications and Allergies Home Medications Medication Instructions Recorded Confirmed Type Baclofen [Lioresal] 20 mg PO BID 12/21/15 04/17/20 History rOPINIRole HCL [Requip] 0.5 mg PO HS 06/18/17 04/17/20 History DULoxetine HCL [Cymbalta] 30 mg PO DAILY 04/17/20 04/17/20 History HYDROcodone/APAP 7.5-325MG [[place] 1 tab PO TID PRN 04/17/20 04/17/20 History 7.5-325] Mirtazapine [Remeron] 30 mg PO HS 04/17/20 04/17/20 History Pantoprazole Sodium [Protonix] 40 mg PO DAILY 04/17/20 04/17/20 History risperiDONE 3 mg PO HS 04/17/20 04/17/20 History Allergies Allergy/AdvReac Type Severity Reaction Status Date / Time No Known Allergies Allergy Verified 04/17/20 18:27 Physical Exam Vitals: Vital Signs Temp Pulse Pulse Resp BP BP Pulse Ox 04/18/20 02:55 97.4 F L 71 16 106/68 94 L 04/17/20 21:20 97.6 F 82 16 124/75 96 04/17/20 20:47 98.1 F 71 14 123/75 98 04/17/20 20:06 70 12 118/83 98 04/17/20 18:55 67 12 112/74 95 04/17/20 17:32 98.2 F 79 20 130/86 100 Intake and Output 04/17/20 04/18/20 04/18/20 22:59 06:59 14:59 Intake Total 0 Balance 0 Intake: Oral 0 Other: Voiding Method Toilet Toilet # Voids 1 0 Weight 83.915 kg GENERAL: The patient is alert and oriented x3, not in any acute distress. Well developed, well nourished. HEENT: Pupils are round and equally reacting to light. EOMI. No scleral icterus. No conjunctival pallor. Normocephalic, atraumatic. No pharyngeal erythema. No thyromegaly. CARDIOVASCULAR: S1 and S2 present. No murmurs, rubs, or gallops. PULMONARY: Chest is clear to auscultation, no wheezing or crackles. ABDOMEN: Soft, nontender, nondistended, normoactive bowel sounds. No palpable or ganomegaly. MUSCULOSKELETAL: No joint swelling or deformity. EXTREMITIES: No cyanosis, clubbing, or pedal edema. NEUROLOGICAL: Gross neurological examination did not reveal any focal deficits. SKIN: No rashes. No petechiae Results CBC & Chem 7: 04/18/20 05:14 04/18/20 05:14 Labs: Abnormal Lab Results - Last 24 Hours (Table) 04/17/20 04/17/20 04/18/20 Range/Units 18:33 18:33 05:14 MCV 100.7 H (80.0-100.0) fL D-Dimer 0.70 H (<0.60) mg/L FEU Sodium (137-145) mmol/L BUN 8 L (9-20) mg/dL Glucose 110 H (74-99) mg/dL 04/18/20 Range/Units 05:14 MCV (80.0-100.0) fL D-Dimer (<0.60) mg/L FEU Sodium 135 L (137-145) mmol/L BUN (9-20) mg/dL Glucose (74-99) mg/dL Thrombosis Risk Factor Assmnt - Choose All That Apply Each Factor Represents 1 point: Age 41-60 years Thrombosis Risk Factor Assessment Total Risk Factor Score: 1 Thrombosis Risk Factor Assessment Level: Low Risk Assessment and Plan Assessment: Chest pain, rule out cardiac causes Mild tracheobronchitis, rule out influenza and covid Chronic low back pain History of multiple sclerosis with false Crohn's disease Migraine headache Plan: This is a pleasant 54 years old male who presents with chest pain. HER troponin. Cardiology consult. Echocardiogram. Continue with aspirin. Droplet isolation check influenza and Covid test Labs and medication were reviewed.. Continue same treatment. Continue with symptomatic treatment. Resume home medication. Monitor lytes and vitals. DVT and GI prophylaxis. Further recommendations depends on the clinical course of the patient DVT prophylaxis: Subcutaneous lovenox GI Prophylaxis: Ppi Dr. Fox resume the care of the patient tomorrow
[2020-04-18] MEDS: ENOXAPARIN 40 MG/0.4 ML SYRINGE SQ SCH (09:36)
[2020-04-18] MEDS: ASPIRIN 81 MG PO SCH (09:37)
--- NOTE | 2020-04-18 12:00 | P.CRDCN ---
History of Present Illness History of present illness: HISTORY OF PRESENTING ILLNESS This is a pleasant 54-year-old male past medical history significant for multiple sclerosis, valvular heart disease and chronic nicotine dependence. He follows in the office with Dr. Geronimo. We have been asked to see in consultation for chest pain. He states for the previous 2 days she has been experiencing cough, shortness of breath and right-sided chest pain. The chest pain is sharp in nature in the right anterior region and associated with b reathing and cough. The patient states every time he coughs he feels a sharp stabbing sensation in the chest. In fact it is happening at the time my exam when asking him take in a deep breath. He denies exertional chest discomfort although he is very active. He denies exertional shortness of breath. He has no dizziness, palpitations, nausea, vomiting or diaphoresis. He underwent cardiac catheterization in 2016 secondary to an abnormal stress test revealing normal coronary arteries. Most recent echocardiogram obtained in the office December 2019 reveals mildly decreased systolic function with ejection fraction 45%, normal diastolic function, moderate mitral regurgitation with mildly calcified leaflets are mildly calcified aortic valve. EKG reveals sinus mechanism with no acute ST-T wave abnormalities noted. Chest x-ray is negative for an acute cardiopulmonary process. CTA is negative for pulmonary embolism with underlying pulmonary disease and noted an normal appearing aorta is no dissection or aneurysm. Laboratory data reviewed, CBC unremarkable, sodium 135, potassium 4.6, creatinine 0.83, magnesium 2.0 and cardiac enzymes negative 3. REVIEW OF SYSTEMS At the time of my exam: CONSTITUTIONAL: Denies fever or chills. CARDIOVASCULAR: Complains of right-sided chest pain with cough and deep breathing. Denies shortness of breath, orthopnea, PND or palpitations. RESPIRATORY: Complains of cough. GASTROINTESTINAL: Denies abdominal pain, diarrhea, constipation, nausea or vom iting. MUSCULOSKELETAL: Denies myalgias. NEUROLOGIC: Denies numbness, tingling or weakness. ENDOCRINE: Denies fatigue, weight change, polydipsia or polyurina. GENITOURINARY: Denies burning, hematuria or urgency with micturation. HEMATOLOGIC: Denies history of anemia or bleeding. PHYSICAL EXAMINATION Blood pressure 116/74 heart rate 71 afebrile and maintaining oxygen saturation on room air. CONSTITUTIONAL: No apparent distress. HEENT: Head is normocephalic. Pupils are equal, round. Sclerae anicteric. Mucous membranes of the mouth are moist. No JVD. No carotid bruit. CHEST EXAMINATION: Lungs are clear to auscultation. No chest wall tenderness is noted on palpation or with deep breathing. HEART EXAMINATION: Regular rate and rhythm. S1, S2 heard. No murmurs, gallops or rub. ABDOMEN: Soft, nontender. Positive bowel sounds. EXTREMITIES: 2+ peripheral pulses, no lower extremity edema and no calf tenderness. NEUROLOGIC EXAMINATION: Patient is awake, alert and oriented x3. ASSESSMENT Chest pain, pleuritic in nature Valvular heart disease Multiple sclerosis Chronic nicotine dependence PLAN Pain is atypical to be related to angina or any other underlying cardiac pathology. Ongoing medical management, evaluation and treatment of pleuritic chest pain. No further cardiac workup at this time. Follow-up in the office with Dr. Geronimo upon discharge. Thank you kindly for this consultation. Nurse Practitioner note has been reviewed, I agree with a documented findings and plan of care. Patient was seen and examined. Past Medical History Past Medical History: Eye Disorder, Musculoskeletal Disorder, Neurologic Disorder Additional Past Medical History / Comment(s): Multiple sclerosis USES A CANE TO AMBULATE, falls. has had in past occasional DOUBLE VISION. CHRONIC BACK NECK PAIN. HAD SPINAL STIMULATOR, THEN REMOVED; Migraine headache. Crohn's disease.lt ear [place] History of Any Multi-Drug Resistant Organisms: MRSA Date of last positivie culture/infection: 2014 MDRO Source:: lower back Past Surgical History: Appendectomy, Back Surgery, Bowel Resection, Hernia Repair Additional Past Surgical History / Comment(s): CERVICAL FUSION. SPINAL STIMULATOR implantation, revision and removal. FOREIGN BODY REMOVED RT CHEST WALL. 10/18/2015 wire removed from back. (from stimulator) Past Anesthesia/Blood Transfusion Reactions: Previous Problems w/ Anesthesia Additional Past Anesthesia/Blood Transfusion Reaction / Comment(s): STATES TAKES A LONG TIME TO WAKE UP Past Psychological History: Depression Additional Psychological History / Comment(s): pt lives with and 2 children. uses cane when up. no home cares services,. Smoking Status: Current every day smoker Past Alcohol Use History: None Reported Additional Past Alcohol Use History / Comment(s): Smoker Since Age 13, smoked 1ppd now down to 1/2 ppd. Past Drug Use History: None Reported - Past Family History Father Family Medical History: Cancer, Diabetes Mellitus Additional Family Medical History / Comment(s): CABG-TRIPLE BYPASS, Mother Family Medical History: Cancer, CVA/TIA, Diabetes Mellitus Additional Family Medical History / Comment(s): Stroke Medications and Allergies Home Medications Medication Instructions Recorded Confirmed Type Baclofen [Lioresal] 20 mg PO BID 12/21/15 04/17/20 History rOPINIRole HCL [Requip] 0.5 mg PO HS 06/18/17 04/17/20 History DULoxetine HCL [Cymbalta] 30 mg PO DAILY 04/17/20 04/17/20 History HYDROcodone/APAP 7.5-325MG [[place] 1 tab PO TID PRN 04/17/20 04/17/20 History 7.5-325] Mirtazapine [Remeron] 30 mg PO HS 04/17/20 04/17/20 History Pantoprazole Sodium [Protonix] 40 mg PO DAILY 04/17/20 04/17/20 History risperiDONE 3 mg PO HS 04/17/20 04/17/20 History Allergies Allergy/AdvReac Type Severity Reaction Status Date / Time No Known Allergies Allergy Verified 04/17/20 18:27 Physical Exam Vitals: Vital Signs Temp Pulse Pulse Resp BP BP Pulse Ox 04/18/20 02:55 97.4 F L 71 16 106/68 94 L 04/17/20 21:20 97.6 F 82 16 124/75 96 04/17/20 20:47 98.1 F 71 14 123/75 98 04/17/20 20:06 70 12 118/83 98 04/17/20 18:55 67 12 112/74 95 04/17/20 17:32 98.2 F 79 20 130/86 100 Intake and Output 04/17/20 04/18/20 04/18/20 22:59 06:59 14:59 Intake Total 0 Balance 0 Intake: Oral 0 Other: Voiding Method Toilet Toilet # Voids 1 0 Weight 83.915 kg Results 04/18/20 05:14 04/18/20 05:14 Cardiac Enzymes 04/17/20 04/17/20 04/17/20 Range/Units 18:33 18:33 21:37 AST 19 (17-59) U/L Troponin I <0.012 <0.012 (0.000-0.034) ng/mL 04/17/20 Range/Units 23:28 AST (17-59) U/L Troponin I <0.012 (0.000-0.034) ng/mL Coagulation 04/17/20 Range/Units 18:33 PT 9.4 (9.0-12.0) sec APTT 26.8 (22.0-30.0) sec CBC 04/17/20 04/18/20 Range/Units 18:33 05:14 WBC 9.8 7.7 (3.8-10.6) k/uL RBC 4.58 4.45 (4.30-5.90) m/uL Hgb 14.5 14.2 (13.0-17.5) gm/dL Hct 44.8 44.8 (39.0-53.0) % Plt Count 313 281 (150-450) k/uL Comprehensive Metabolic Panel 04/17/20 04/18/20 Range/Units 18:33 05:14 Sodium 137 135 L (137-145) mmol/L Potassium 4.2 4.6 (3.5-5.1) mmol/L Chloride 103 104 (98-107) mmol/L Carbon Dioxide 26 28 (22-30) mmol/L BUN 8 L 11 (9-20) mg/dL Creatinine 0.84 0.83 (0.66-1.25) mg/dL Glucose 110 H 84 (74-99) mg/dL Calcium 9.7 9.4 (8.4-10.2) mg/dL AST 19 (17-59) U/L ALT 10 (4-49) U/L Alkaline Phosphatase 92 (38-126) U/L Total Protein 6.8 (6.3-8.2) g/dL Albumin 4.1 (3.5-5.0) g/dL Current Medications Generic Name Dose Route Start Last Admin Trade Name Freq PRN Reason Stop Dose Admin Hydrocodone Bitart/Acetaminophen 1 each 04/17/20 22:00 04/17/20 22:16 Hydrocodone/Apap 7.5-325mg 1 Each Tab PO 1 each TID PRN Administration Pain Aspirin 81 mg 04/18/20 09:00 Aspirin 81 Mg PO DAILY CANDIS Baclofen 20 mg 04/17/20 21:30 04/18/20 08:01 Baclofen 10 Mg Tab PO 20 mg BID CANDIS Administration Duloxetine HCl 30 mg 04/18/20 09:00 04/18/20 08:01 Duloxetine Hcl 30 Mg Capsule.Dr PO 30 mg DAILY CANDIS Administration Enoxaparin Sodium 40 mg 04/18/20 09:00 Enoxaparin 40 Mg/0.4 Ml Syringe SQ DAILY CANDIS Mirtazapine 30 mg 04/17/20 22:00 04/17/20 22:11 Mirtazapine 15 Mg Tab PO 30 mg HS CANDIS Administration Morphine Sulfate 4 mg 04/17/20 20:18 04/18/20 08:04 Morphine Sulfate 4 Mg/Ml Syringe IV 4 mg Q4HR PRN Administration Severe Pain Naloxone HCl 0.2 mg 04/17/20 20:18 Naloxone 0.4 Mg/Ml 1 Ml Vial IV Q2M PRN Opioid Reversal Pantoprazole Sodium 40 mg 04/18/20 09:00 04/18/20 08:01 Pantoprazole 40 Mg Tablet PO 40 mg DAILY CANDIS Administration Risperidone 3 mg 04/17/20 22:00 04/17/20 22:11 Risperidone 1 Mg Tab PO 3 mg HS CANDIS Administration Ropinirole HCl 0.5 mg 04/17/20 22:00 04/17/20 22:10 Ropinirole Hcl 0.25 Mg Tab PO 0.5 mg HS CANDIS Administration Intake and Output 04/17/20 04/18/20 04/18/20 22:59 06:59 14:59 Intake Total 0 Balance 0 Intake: Oral 0 Other: Voiding Method Toilet Toilet # Voids 1 0 Weight 83.915 kg 04/18/20 05:14 04/18/20 05:14
[2020-04-18] MEDS: HYDROcodone/APAP 7.5-325MG 1 EACH TAB PO PRN (13:25)
[2020-04-18] MEDS: risperiDONE 1 MG TAB PO SCH (20:28)
[2020-04-18] MEDS: MIRTAZAPINE 15 MG TAB PO SCH (20:29)
[2020-04-19] MEDS: HYDROcodone/APAP 7.5-325MG 1 EACH TAB PO PRN ×2 (01:35→08:02)
[2020-04-19] MEDS: ENOXAPARIN 40 MG/0.4 ML SYRINGE SQ SCH (08:00)
[2020-04-19] MEDS: ASPIRIN 81 MG PO SCH (08:00)
[2020-04-19] MEDS: BACLOFEN 10 MG TAB PO SCH ×2 (08:00→20:19)
[2020-04-19] MEDS: PANTOPRAZOLE 40 MG TABLET PO SCH (08:00)
[2020-04-19] MEDS: DULoxetine HCL 30 MG CAPSULE.DR PO SCH (08:01)
[2020-04-19] MEDS ORDERED: ACETAMINOPHEN TAB 325 MG TAB PO PRN (10:43)
[2020-04-19] MEDS ORDERED: IPRATROPIUM-ALBUTEROL 3 ML NEB INHALATION PRN (11:09)
[2020-04-19] MEDS ORDERED: methylPREDNISolone SOD SUCCI 125 MG/2 ML VIAL IV STA (11:10)
[2020-04-19] MEDS: NICOTINE 14MG/24HR PATCH TRANSDERM SCH (11:53)
[2020-04-19] MEDS: INSULIN ASPART (NovoLOG) 100 UNIT/ML VIAL SQ SCH ×3 (12:22→20:19)
[2020-04-19 12:23] LABS: Glucose,Whole Blood 105 mg/dL (75-99)
[2020-04-19] MEDS: IPRATROPIUM-ALBUTEROL 3 ML NEB INHALATION SCH ×3 (12:29→20:31)
[2020-04-19] MEDS: IBUPROFEN 800 MG TAB PO SCH ×2 (15:33→22:30)
--- NOTE | 2020-04-19 15:58 | P.PN ---
Subjective Progress Note Date: 04/19/20 This is a 54-year-old male admitted with right-sided chest pain, mild tracheobronchitis, chronic back pain and multiple other medical issues. Coronavirus, influenza A and B not detected. During the night patient became hypoxic, requiring 3 L of O2 to maintain O2 sats of 90s. Less productive cough, yellow mucousy sputum. Complains of right-sided chest pain, no fevers. Patient has a pain contract with Dr. Carlin. Complains of pain with deep breathing. CTA reported no evidence of pulmonary embolism, pulmonary emphysema with some scarring and atelectasis at bilateral bases. Diffuse bullous pulmonary emphysema 1 cm calcified granuloma adjacent to the pleura in the lateral right upper lobe Chest x-ray reported no CHF, some pleural pulmonary scarring progressed. Evaluated by cardiology, chest pain atypical with no further cardiac workup recommended at this time. Afebrile, normal WBCs. Objective - Vital Signs Vital signs: Vital Signs Temp 98.4 F 04/19/20 07:59 Pulse 76 04/19/20 12:39 Resp 16 04/19/20 09:00 BP 114/75 04/19/20 07:59 Pulse Ox 93 L 04/19/20 11:03 Intake & Output 04/18/20 04/19/20 04/19/20 18:59 06:59 18:59 Intake Total 1022 150 Balance 1022 150 Intake: IV 50 cefTRIAXone 1 gm In 50 Sodium Chloride 0.9% 50 ml @ 100 mls/hr IVPB Q24HR [facility] Rx#:[id number] Oral 1022 100 Other: Voiding Method Toilet Toilet Toilet # Voids 2 2 # Bowel Movements 0 - Exam PHYSICAL EXAM: VITAL SIGNS: As above GENERAL: Sitting up in bed, no acute distress HEENT: Conjunctivae normal. eyes normal. NECK: No JVD. No thyroid enlargement. No LNs CARDIOVASCULAR: S1, S2 regular..No murmur RESPIRATION: Breath sounds diminished in the bases. No rhonchi or crackles. No bronchial breathing. ABDOMEN: Soft, nontender . No guarding. no masses palpable. No ascites, No hepatosplenomegaly.Bowel sounds heard. LEGS: No edema. no swelling PSYCHIATRY: Alert and oriented X3, mood and affect normal. NERVOUS SYSTEM: Cranial N 2-12 grossly normal. Moves all 4 limbs. No focal deficits. Strength and sensation grossly intact.. Skin: Warm and dry, no rash - Labs CBC & Chem 7: 04/18/20 05:14 04/18/20 05:14 Labs: Abnormal Lab Results - Last 24 Hours (Table) 04/19/20 Range/Units 12:20 POC Glucose (mg/dL) 105 H (75-99) mg/dL Assessment and Plan Assessment: Acute hypoxic respiratory failure secondary to progressing bullous emphysema Possible mild tracheobronchitis,Coronavirus, influenza A and B not detected. Chest pain, atypical as per cardiology. Valvular heart disease Multiple sclerosis Chronic nicotine dependence Chronic back pain, patient has a pain contract with Dr. Carlin Crohn's disease Plan: Continue on current medication regime ,monitoring and symptomatic treatment. Nebulized bronchodilators, steroids, antibiotics added to med regimen. Pulmonary consulted. Cleared by cardiology with no further cardiac workup recommended at this time. Continue weaning down oxygen. Smoking sensation reinforced. Morphine discontinued, hold med [employer] resumed. The impression and plan of care has been dictated as directed. : I performed a history and examination of this patient, discussed the same with the dictator. I agree with the dictator's note ,documented as a scribe. Any additional findings or plans will be noted.
--- NOTE | 2020-04-19 16:03 | CONS ---
CONSULTATION PULMONARY/CRITICAL CARE CONSULTATION: DATE OF SERVICE: 04/19/2020 REASON FOR CONSULTATION: Sharp pleuritic chest pain. This is a 54-year-old male with a history of MS and COPD who presented to the emergency department on April 17 at 17:30 with right-sided chest discomfort. It was described as being very sharp, worse with deep inspiration. This started 2 hours prior to admission. The patient apparently was not doing anything when the pain started. It was sudden onset. He points to his right chest when he describes it. The patient's pain apparently was "10/10." He took a baby aspirin. Anyway, the patient came into the emergency room to be evaluated. We were asked to see the patient because pulmonary embolism was ruled out and the cardiologists I believe feel that there are no cardiac issues here. To me, the patient is describing classic viral pleurisy. It is a very sharp pain, it is right-sided. It does not really radiate and it is worse with deep inspiration. The patient did not have any additional complaints including cough, phlegm production, fever, chills, chest tightness, or any other complaints for that matter. HOME MEDICATIONS: Reviewed. He is on baclofen, Requip, Cymbalta, [place], Remeron, Protonix, risperidone. ALLERGIES: Denied. MEDICAL HISTORY: Multiple sclerosis, double vision, chronic back and neck pain, migraine cephalgia, Crohn'S disease, and deafness in his left ear. He has also had a previous history of methicillin-resistant Staph aureus infection back in 2015. SURGICAL HISTORY: Includes appendectomy, bowel resection, hernia repair, cervical fusion, spinal stimulator implantation, subsequent removal of spinal stimulator, foreign body removed from right chest wall, and some other minor procedures. SOCIAL HISTORY: Positive for tobacco use. Denies any alcohol or illicit drug use. FAMILY HISTORY: Positive for father with cancer, diabetes, and bypass grafting in a mother with a history of cancer, CVA, and diabetes. REVIEW OF SYSTEMS: CONSTITUTIONAL: Negative. NEUROLOGIC: Negative. HEENT: Negative. CARDIOVASCULAR: Right-sided chest pain, very sharp and pleuritic in nature. PULMONARY: Negative. GI: Negative. : Negative. RHEUMATOLOGIC: Negative. IMMUNOLOGIC: Negative. ENDOCRINOLOGIC: Negative. DERMATOLOGIC: Also negative. Current vital signs are reviewed. Temperature is 98.4, heart rate 70, respiratory rate 16, blood pressure 114/75 and saturations on 2 L are 94%. Appears in no acute distress. HEENT: Examination is grossly unremarkable. NECK: Supple, full range of motion. No adenopathy or thyromegaly. Neck veins are flat. CARDIOVASCULAR: Examination reveals regular rhythm and rate. Heart rate mid 70s. S1, S2 normal. LUNGS: Reveal mostly clear breath sounds. I do not hear a pleural friction rub. No wheezes, rhonchi, or crackles. He does have a difficult time taking a deep breath. ABDOMEN: Soft, bowel sounds are heard. EXTREMITIES: Intact. No cyanosis, clubbing, or edema. SKIN: Without rash. NEUROLOGIC: Examination is nonfocal. LABS: Reviewed. White count 7.7, hemoglobin 14.2, hematocrit 44.8, platelet count 281, 000 sodium 135, potassium chloride, CO2 normal/anion gap normal. BUN and creatinine were normal. [place] virus was not detected. Influenza A and B were negative. Microbiology was negative. A chest x-ray was done. It showed no heart failure and there was apparently some pleural and pulmonary scarring. A CT scan was done. There was no evidence of pulmonary embolism. There was some scarring at the lung bases and evidence of pulmonary emphysema. Current medications are reviewed. He is on Tylenol, aspirin, baclofen, Pulmicort, ceftriaxone, Cymbalta, Lovenox, [place], insulin, DuoNeb, Solu-Medrol, Remeron, Narcan, nicotine patch, Protonix, Requip, and Risperdal. ASSESSMENT: 1. 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 2. History of multiple sclerosis. 3. History of suspected underlying COPD from tobacco use. 4. Hearing loss, left ear. 5. Crohn's disease. 6. Migraine cephalgia. 7. Chronic back and neck pain. 8. Diplopia. PLAN: The patient's should be treated primarily with corticosteroids and nonsteroid anti- inflammatory drugs. Antibiotics can be discontinued. Additional recommendations are made. The patient could be discharged from the hospital. This should resolve in the next few days. MMODL / IJN: [id number] /
[2020-04-19 17:17] LABS: Glucose,Whole Blood 189 mg/dL (75-99)
[2020-04-19] MEDS: methylPREDNISolone SOD SUCCI 125 MG/2 ML VIAL IV SCH (17:43)
[2020-04-19] MEDS ORDERED: methylPREDNISolone SOD SUCCI 40 MG/ML 1 ML VIAL IV SCH (18:00)
[2020-04-19] MEDS ORDERED: BUDESONIDE 0.5 MG/2 ML NEBU INHALATION SCH (20:00)
[2020-04-19 20:01] LABS: Glucose,Whole Blood 191 mg/dL (75-99)
[2020-04-19] MEDS: risperiDONE 1 MG TAB PO SCH (20:19)
[2020-04-19] MEDS: MIRTAZAPINE 15 MG TAB PO SCH (20:19)
[2020-04-20] MEDS: HYDROcodone/APAP 7.5-325MG 1 EACH TAB PO PRN ×2 (00:39→09:16)
[2020-04-20] MEDS: methylPREDNISolone SOD SUCCI 125 MG/2 ML VIAL IV SCH ×2 (00:40→05:15)
[2020-04-20 04:49] VITALS: TEMP 97.5
[2020-04-20 06:34] LABS: Glucose,Whole Blood 153 mg/dL (75-99)
[2020-04-20] MEDS: INSULIN ASPART (NovoLOG) 100 UNIT/ML VIAL SQ SCH (06:48)
[2020-04-20] MEDS: IPRATROPIUM-ALBUTEROL 3 ML NEB INHALATION SCH (07:39)
[2020-04-20 07:52] VITALS: BP 110/69; PULSE 79; RESP 16
[2020-04-20] MEDS: ENOXAPARIN 40 MG/0.4 ML SYRINGE SQ SCH (08:12)
[2020-04-20] MEDS: NICOTINE 14MG/24HR PATCH TRANSDERM SCH (08:13)
[2020-04-20] MEDS: PANTOPRAZOLE 40 MG TABLET PO SCH (08:13)
[2020-04-20] MEDS: IBUPROFEN 800 MG TAB PO SCH (08:13)
[2020-04-20] MEDS: ASPIRIN 81 MG PO SCH (08:13)
[2020-04-20] MEDS: DULoxetine HCL 30 MG CAPSULE.DR PO SCH (08:14)
[2020-04-20] MEDS: BACLOFEN 10 MG TAB PO SCH (08:18)
--- NOTE | 2020-04-20 08:40 | P.DS ---
Providers Date of admission: 04/19/20 09:32 Expected date of discharge: 04/20/20 Attending physician: Mack Fox Consults: 04/17/20 20:21 Consult Physician Urgent Consulting Provider: [facility] Reason/Comments: acute chest pain Do you want consulting provider notified?: Yes 04/19/20 11:08 Consult Physician Routine Consulting Provider: Jose Leal Reason/Comments: hypoxia, abn ct Do you want consulting provider notified?: Yes Primary care physician: Mack Fox [facility] Course: Final Diagnoses: Acute hypoxic respiratory failure secondary to progressing bullous emphysema, in addition to viral pleurisy Possible mild tracheobronchitis,Coronavirus, influenza A and B not detected. Chest pain, atypical as per cardiology. Pleuritic, suspect viral pleurisy Valvular heart disease Multiple sclerosis Chronic nicotine dependence Chronic back pain, patient has a pain contract with Dr. Carlin Crohn's disease [facility] course:This is a 54-year-old male admitted with right-sided chest pain, mild tracheobronchitis, chronic back pain and multiple other medical issues. Coronavirus, influenza A and B not detected. During the night patient became hypoxic, requiring 3 L of O2 to maintain O2 sats of 90s. Less productive cough, yellow mucousy sputum. Complains of right-sided chest pain, no fevers. Patient has a pain contract with Dr. Carlin. Complains of pain with deep breathing. CTA reported no evidence of pulmonary embolism, pulmonary emphysema with some scarring and atelectasis at bilateral bases. Diffuse bullous pulmonary e mphysema 1 cm calcified granuloma adjacent to the pleura in the lateral right upper lobe Chest x-ray reported no CHF, some pleural pulmonary scarring progressed. Evaluated by cardiology, chest pain atypical with no further cardiac workup recommended at this time. Afebrile, normal WBCs. Evaluated by pulmonary. Antibiotics discontinued, maintained on both NSAIDs and steroids. Chest pain and increased shortness of breath resolved. Weaned off of oxygen. Cleared by both cardiology and pulmonary for discharge. Patient is being discharged home today in a stable condition with guarded prognosis. The impression and plan of care has been dictated as directed. : I performed a history and examination of this patient, discussed the same with the dictator. I agree with the dictator's note ,documented as a scribe. Any additional findings or plans will be noted. Patient Condition at Discharge: Stable Plan - Discharge Summary Discharge Rx Participant: No New Discharge Prescriptions: New Nicotine 14Mg/24Hr Patch [Habitrol] 1 patch TRANSDERM DAILY #30 patch Ibuprofen [Motrin] 800 mg PO TID #15 tab predniSONE 10 mg PO DIRECTED #30 tab Continue Baclofen [Lioresal] 20 mg PO BID rOPINIRole HCL [Requip] 0.5 mg PO HS DULoxetine HCL [Cymbalta] 30 mg PO DAILY HYDROcodone/APAP 7.5-325MG [[place] 7.5-325] 1 tab PO TID PRN PRN Reason: Pain Mirtazapine [Remeron] 30 mg PO HS Pantoprazole Sodium [Protonix] 40 mg PO DAILY risperiDONE 3 mg PO HS Discharge Medication List Baclofen [Lioresal] 20 mg PO BID 12/21/15 [History] rOPINIRole HCL [Requip] 0.5 mg PO HS 06/18/17 [History] DULoxetine HCL [Cymbalta] 30 mg PO DAILY 04/17/20 [History] HYDROcodone/APAP 7.5-325MG [[place] 7.5-325] 1 tab PO TID PRN 04/17/20 [History] Mirtazapine [Remeron] 30 mg PO HS 04/17/20 [History] Pantoprazole Sodium [Protonix] 40 mg PO DAILY 04/17/20 [History] risperiDONE 3 mg PO HS 04/17/20 [History] Ibuprofen [Motrin] 800 mg PO TID #15 tab 04/20/20 [Rx] Nicotine 14Mg/24Hr Patch [Habitrol] 1 patch TRANSDERM DAILY #30 patch 04/20/20 [ Rx] predniSONE 10 mg PO DIRECTED #30 tab 04/20/20 [Rx] Follow up Appointment(s)/Referral(s): Mack Fox DO [Primary Care Provider] - 1-2 days Jimi Geronimo MD [STAFF PHYSICIAN] - 2 Weeks Patient Instructions/Handouts: Chest Pain (DC), How to Stop Smoking (DC)
== END 2020-04-20 09:50 | disposition home or self-care (01) ==
LOC: EC 17:30 → 3NCARDOBS 20:19 → OBSVTOIN 04-19 09:32 → INTOOBSV 04-19 09:32 → 6NMEDSUR 04-19 12:49 → 3NCARDOBS 04-19 13:06 → UNDODISIN 04-20 09:50
PROVIDERS: ADMIT Family Medicine; ATTEND Family Medicine
DX: R07.9 Chest pain, unspecified (principal); J98.11 Atelectasis; G35 Multiple sclerosis; Z20.828 Contact with and (suspected) exposure to other viral communicable diseases; H57.9 Unspecified disorder of eye and adnexa; J96.01 Acute respiratory failure with hypoxia; H53.2 Diplopia; J43.9 Emphysema, unspecified; G89.29 Other chronic pain; M54.9 Dorsalgia, unspecified; M54.2 Cervicalgia; G43.909 Migraine, unspecified, not intractable, without status migrainosus; K50.90 Crohn's disease, unspecified, without complications; F17.210 Nicotine dependence, cigarettes, uncomplicated; H91.90 Unspecified hearing loss, unspecified ear; Z86.14 Personal history of Methicillin resistant Staphylococcus aureus infection; Z91.81 History of falling; Z90.49 Acquired absence of other specified parts of digestive tract; Z98.1 Arthrodesis status; Z98.890 Other specified postprocedural states; F32.9 Major depressive disorder, single episode, unspecified; Z83.3 Family history of diabetes mellitus; Z80.9 Family history of malignant neoplasm, unspecified; Z82.49 Family history of ischemic heart disease and other diseases of the circulatory system; Z82.3 Family history of stroke; Z79.1 Long term (current) use of non-steroidal anti-inflammatories (NSAID); Z79.891 Long term (current) use of opiate analgesic; Z79.52 Long term (current) use of systemic steroids; Z79.899 Other long term (current) drug therapy
CPT/HCPCS: 96376 ×3; 96365; 96372 ×3; 96375 ×2; 93005 ×2; 99285; 36415; 94640 ×3; 85379; 80053; 80048; 83735; 84484; 85025 ×2; 85610; 85730; 87502; 71046; 71275; G0378 ×5; U0003; S4990 ×2; J2270 ×2; J2930 ×2; J1650 ×3; J0696; 96374

== ENCOUNTER 2020-11-19 08:36 | Day surgery (SDC) | payer MEDICARE ==
[2020-11-17 10:56] VITALS: BMI 24.4
[2020-11-19] MEDS: LACTATED RINGERS 1,000 ML IV SCH ×2 (08:53→09:10)
[2020-11-19 08:59] VITALS: RESP 16; TEMP 98.3
[2020-11-19] MEDS ORDERED: PROPOFOL 10 MG/ML 20 ML VIAL IV ONE (09:31)
[2020-11-19] MEDS ORDERED: LIDOCAINE 1% INJ 10MG/ML (20 ML MDV) ONE (09:31)
--- NOTE | 2020-11-19 09:52 | P.PCN ---
Date of Procedure: 11/19/20 Procedure(s) Performed: BRIEF HISTORY: Patient is a 55-year-old pleasant white male scheduled for an elective colonoscopy as a part of evaluation of prior history of Crohn's disease involving the terminal ileum. She underwent terminal ileal resection in 2019. Last colonoscopy was 5 years ago that did not show any evidence of recurrent Crohn's. He denies any symptoms at this time. He also has prior history of colon polyps. . PROCEDURE PERFORMED: Colonoscopy with snare polypectomy. PREOPERATIVE DIAGNOSIS: History of Crohn's disease and history of colon polyps. IV sedation per Anesthesia. PROCEDURE: After informed consent was obtained, the patient, was brought into the endoscopy unit. IV sedation was administered by Anesthesia under continuous monitoring. Digital rectal examination was normal. Initially the Olympus CF-160 flexible video colonoscope was then inserted in the rectum, gradually advanced into the without any difficulty. Ileocolic anastomosis was visualized that appeared narrowed. There was no recurrent Crohn's disease noted. In the hepatic flexure there was a 1 cm flat polyp removed by snare polypectomy. In the transverse colon there was a 3 mm and 5 mm polyp removed by snare polypectomy. Rest of the transverse colon, descending colon, sigmoid colon, and rectum appeared normal. Retroflexion was performed in the rectum and no lesions were seen. The patient tolerated the procedure well. IMPRESSION: Narrowing of a ileocolon anastomosis with no acute recurrent evidence of recurrent Crohn's disease 1 cm flat hepatic flexure polyp status post polypectomy 3 mm and 5 mm transverse colon polyp status post polypectomy RECOMMENDATIONS: Findings of this examination were discussed with the patient as well as his family. He was advised to follow with the biopsy results. If the biopsy shows an adenoma he can have a repeat colonoscopy in 5 years.
[2020-11-19 10:11] VITALS: BP 115/80; PULSE 74
== END 2020-11-19 10:39 | disposition home or self-care (01) ==
LOC: ORWHC2ENDO 08:36
PROVIDERS: ATTEND Internal Medicine Gastroenterology
DX: Z12.11 Encounter for screening for malignant neoplasm of colon (principal); D12.3 Benign neoplasm of transverse colon; K63.5 Polyp of colon; Z98.0 Intestinal bypass and anastomosis status; G35 Multiple sclerosis; Z79.899 Other long term (current) drug therapy; Z87.19 Personal history of other diseases of the digestive system
CPT/HCPCS: 88305; 45385; J2001; J2704

== ENCOUNTER 2020-12-09 18:45 | Emergency (ER) | payer MEDICARE ==
[2020-12-09] MEDS ORDERED: HYDROmorphone 0.5 MG/0.5 ML SYRINGE IVP STA ×2 (18:54→20:14)
[2020-12-09 19:02] VITALS: RESP 18
--- NOTE | 2020-12-09 19:59 | XR ---
PROCEDURE: XR Hip RT and AP Pelvis - 3V DATE AND TIME: 12/09/2020 7:27 PM CLINICAL INDICATION: Pain after fall TECHNIQUE: Department protocol COMPARISON: 06/18/2017 FINDINGS: The right hip prosthesis is intact. There are no periprosthesis lucencies. There is no frac ture or malalignment. The soft tissues are unremarkable. IMPRESSION: NO ACUTE PROCESS.
--- NOTE | 2020-12-09 20:40 | ED ---
General Adult HPI - General Chief complaint: Fall Stated complaint: Fall, R hip pain Time Seen by Provider: 12/09/20 18:47 Source: EMS, RN notes reviewed Mode of arrival: EMS Limitations: no limitations - History of Present Illness Initial comments: 55-year-old male with a past medical history of MS, falls, hip surgery presents to the emergency room for a chief, and of right hip pain. Patient states he was wearing new sandals and his foot got stuck on the second to last year. Patient tripped and fell on his right hip. States it was painful to ambulate. Patient does have history of prosthesis in that hip from several years ago. Patient did not hit his head. No loss of consciousness. He denies neck back or chest pain. Patient has no other complaints at this time including shortness of breath, chest pain, abdominal pain, nausea or vomiting, headache, or visual changes. - Related Data Home Medications Medication Instructions Recorded Confirmed Baclofen [Lioresal] 20 mg PO BID 12/21/15 11/19/20 rOPINIRole HCL [Requip] 0.5 mg PO HS 06/18/17 11/19/20 DULoxetine HCL [Cymbalta] 30 mg PO QAM 04/17/20 11/19/20 HYDROcodone/APAP 7.5-325MG [[place] 1 tab PO TID PRN 04/17/20 11/19/20 7.5-325] Mirtazapine [Remeron] 30 mg PO HS 04/17/20 11/19/20 Pantoprazole Sodium [Protonix] 40 mg PO QAM 04/17/20 11/19/20 risperiDONE 1 mg PO HS 04/17/20 11/19/20 tadalafiL [Tadalafil] 20 mg PO Q3D 11/17/20 11/19/20 Allergies Allergy/AdvReac Type Severity Reaction Status Date / Time No Known Allergies Allergy Verified 11/19/20 08:54 Review of Systems ROS Statement: Those systems with pertinent positive or pertinent negative responses have been documented in the HPI. ROS Other: All systems not noted in ROS Statement are negative. Past Medical History Past Medical History: Eye Disorder, Musculoskeletal Disorder, Neurologic Disorder Additional Past Medical History / Comment(s): Multiple sclerosis USES A CANE TO AMBULATE, falls. has had in past occasional DOUBLE VISION. CHRONIC BACK NECK PAIN. HAD SPINAL STIMULATOR, THEN REMOVED; Migraine headache. Crohn's disease.lt ear [place] History of Any Multi-Drug Resistant Organisms: MRSA Date of last positivie culture/infection: 2014 MDRO Source:: lower back Past Surgical History: Appendectomy, Back Surgery, Bowel Resection, Hernia Repair Additional Past Surgical History / Comment(s): CERVICAL FUSION. SPINAL STIMULATOR implantation, revision and removal. FOREIGN BODY REMOVED RT CHEST WALL. 10/18/2015 wire removed from back. (from stimulator) Past Anesthesia/Blood Transfusion Reactions: Previous Problems w/ Anesthesia Additional Past Anesthesia/Blood Transfusion Reaction / Comment(s): STATES TAKES A LONG TIME TO WAKE UP Past Psychological History: Depression Smoking Status: Current every day smoker - Past Family History Father Family Medical History: Cancer, Diabetes Mellitus Additional Family Medical History / Comment(s): CABG-TRIPLE BYPASS, Mother Family Medical History: Cancer, CVA/TIA, Diabetes Mellitus Additional Family Medical History / Comment(s): Stroke General Exam Limitations: no limitations General appearance: alert, in no apparent distress Head exam: Present: atraumatic, normocephalic, normal inspection Eye exam: Present: normal appearance, PERRL, EOMI. Absent: scleral icterus, conjunctival injection, periorbital swelling ENT exam: Present: normal exam, mucous membranes moist Neck exam: Present: normal inspection, full ROM. Absent: tenderness, meningismus, lymphadenopathy Respiratory exam: Present: normal lung sounds bilaterally. Absent: respiratory distress, wheezes, rales, rhonchi, stridor Cardiovascular Exam: Present: regular rate, normal rhythm, normal heart sounds. Absent: systolic murmur, diastolic murmur, rubs, gallop, clicks GI/Abdominal exam: Present: soft, normal bowel sounds. Absent: distended, tenderness, guarding, rebound, rigid Extremities exam: Present: normal capillary refill (Capillary refill less than 2 seconds, DP pulse 2+ right lower extremity.), other (Sensation intact right lower extremity.). Absent: full ROM (pt has about 45 flexion of the right hip, extension to neutral position.), tenderness Course Vital Signs 12/09/20 18:49 Temperature 98.6 F Pulse Rate 72 Respiratory 18 Rate Blood Pressure 113/66 O2 Sat by Pulse 95 Oximetry Medical Decision Making - Medical Decision Making Vitals are stable. HPI and physical exam documented. X-ray shows no acute pro cess. I was actually able to ambulate patient after this x-ray. At this time patient's pain is much improved. He will be given one more dose upon discharge. He has [place] at home for pain. He lives with his and children who will be able to assist him. He will need to follow up with orthopedics. He will return here for any worsening symptoms. Disposition Clinical Impression: Hip pain, right, Fall Disposition: HOME SELF-CARE Condition: Good Instructions (If sedation given, give patient instructions): Fall Prevention (ED), Hip Pain (ED) Additional Instructions: Please take your [place] at home for pain. Follow-up with your orthopedic surgeo n. Return to the emergency room for any worsening symptoms Is patient prescribed a controlled substance at d/c from ED?: No Referrals: Mack Fox DO [Primary Care Provider] - 1-2 days Brannon Pacheco DO [Doctor of Osteopathic Medicine] - 1-2 days Time of Disposition: 20:40
[2020-12-09 21:50] VITALS: BP 107/61; PULSE 64; TEMP 97.9
== END 2020-12-09 21:57 | disposition home or self-care (01) ==
LOC: EC 18:45
DX: M25.551 Pain in right hip (principal); G35 Multiple sclerosis; F32.9 Major depressive disorder, single episode, unspecified; F17.200 Nicotine dependence, unspecified, uncomplicated; W01.0XXA Fall on same level from slipping, tripping and stumbling without subsequent striking against object, initial encounter
CPT/HCPCS: 73502; 99283; 96374; 96376; J1170

== ENCOUNTER 2020-12-22 17:51 | Emergency (ER) | payer MEDICARE ==
--- NOTE | 2020-12-22 19:41 | ED ---
General Adult HPI - General Chief complaint: Fall Stated complaint: fall, hip/neck pain Time Seen by Provider: 12/22/20 19:28 Source: patient Mode of arrival: wheelchair Limitations: no limitations - History of Present Illness Initial comments: 75-year-old male with a past medical history of multiple sclerosis, chronic back pain, chronic hip pain presents to the emergency room for a chief complaint of fall. Patient states last week she was walking up the stairs. His chronic hip pain causes his leg to give out and he fell on the right hip. Patient states last night he was walking in his hip pain was worse again and he fell. Patient states he has right hip pain and neck pain. Patient did not hit his head. Patient does not take blood thinners. - Related Data Home Medications Medication Instructions Recorded Confirmed Baclofen [Lioresal] 20 mg PO BID 12/21/15 11/19/20 rOPINIRole HCL [Requip] 0.5 mg PO HS 06/18/17 11/19/20 DULoxetine HCL [Cymbalta] 30 mg PO QAM 04/17/20 11/19/20 HYDROcodone/APAP 7.5-325MG [[place] 1 tab PO TID PRN 04/17/20 11/19/20 7.5-325] Mirtazapine [Remeron] 30 mg PO HS 04/17/20 11/19/20 Pantoprazole Sodium [Protonix] 40 mg PO QAM 04/17/20 11/19/20 risperiDONE 1 mg PO HS 04/17/20 11/19/20 tadalafiL [Tadalafil] 20 mg PO Q3D 11/17/20 11/19/20 Allergies Allergy/AdvReac Type Severity Reaction Status Date / Time No Known Allergies Allergy Verified 12/22/20 19:12 Review of Systems ROS Statement: Those systems with pertinent positive or pertinent negative responses have been documented in the HPI. ROS Other: All systems not noted in ROS Statement are negative. Past Medical History Past Medical History: Eye Disorder, Musculoskeletal Disorder, Neurologic Disorder Additional Past Medical History / Comment(s): Multiple sclerosis USES A CANE TO AMBULATE, falls. has had in past occasional DOUBLE VISION. CHRONIC BACK NECK PAIN. HAD SPINAL STIMULATOR, THEN REMOVED; Migraine headache. Crohn's disease.lt ear [place] History of Any Multi-Drug Resistant Organisms: MRSA Date of last positivie culture/infection: 2014 MDRO Source:: lower back Past Surgical History: Appendectomy, Back Surgery, Bowel Resection, Hernia Repair Additional Past Surgical History / Comment(s): CERVICAL FUSION. SPINAL STIMULATOR implantation, revision and removal. FOREIGN BODY REMOVED RT CHEST WALL. 10/18/2015 wire removed from back. (from stimulator) Past Anesthesia/Blood Transfusion Reactions: Previous Problems w/ Anesthesia Additional Past Anesthesia/Blood Transfusion Reaction / Comment(s): STATES TAKES A LONG TIME TO WAKE UP Past Psychological History: Depression Smoking Status: Current every day smoker Past Alcohol Use History: None Reported Past Drug Use History: Marijuana - Past Family History Father Family Medical History: Cancer, Diabetes Mellitus Additional Family Medical History / Comment(s): CABG-TRIPLE BYPASS, Mother Family Medical History: Cancer, CVA/TIA, Diabetes Mellitus Additional Family Medical History / Comment(s): Stroke General Exam Limitations: no limitations General appearance: alert, in no apparent distress Head exam: Present: atraumatic, normocephalic, normal inspection Eye exam: Present: normal appearance, PERRL, EOMI. Absent: scleral icterus, con junctival injection, periorbital swelling ENT exam: Present: normal exam, mucous membranes moist Neck exam: Present: tenderness (Generalized posterior neck tenderness along the cervical spine and paraspinal muscles.). Absent: meningismus, full ROM (Patient has limited rotation bilaterally of the neck.), lymphadenopathy Respiratory exam: Present: normal lung sounds bilaterally. Absent: respiratory distress, wheezes, rales, rhonchi, stridor Cardiovascular Exam: Present: regular rate, normal rhythm, normal heart sounds. Absent: systolic murmur, diastolic murmur, rubs, gallop, clicks GI/Abdominal exam: Present: soft, normal bowel sounds. Absent: distended, tenderness, guarding, rebound, rigid Extremities exam: Present: normal capillary refill (Capillary refill less than 2 seconds, DP pulse 2+ bilateral lower extremities). Absent: full ROM Neurological exam: Present: alert Course Vital Signs 12/22/20 19:07 Temperature 98.1 F Pulse Rate 89 Respiratory 20 Rate Blood Pressure 117/86 O2 Sat by Pulse 99 Oximetry Medical Decision Making - Medical Decision Making CT brain is negative. No adverse change. CT cervical spine shows no acute abnormality. No fracture. X-ray of the right hip and pelvis is negative. No fracture seen. Neck pain likely related to cervical strain. C-collar removed. Patient's hip pain has been chronic for quite some time. He has an appointment coming up [facility] a [facility] however I did recommend the patient call tomorrow morning for an earlier appointment as soon as possible. Patient will be discharged to follow-up with primary care. He will return for any worsening symptoms. Disposition Clinical Impression: Fall, Cervical strain, Hip pain Disposition: HOME SELF-CARE Condition: Good Instructions (If sedation given, give patient instructions): Cervical Strain (ED), Hip Pain (ED) Additional Instructions: Please take Motrin for pain. If pain is severe take Tylenol 3. Follow-up with your orthopedic doctor by calling first thing tomorrow. Return to the emergency room for any worsening symptoms. Is patient prescribed a controlled substance at d/c from ED?: No Referrals: Mack Fox DO [Primary Care Provider] - 1-2 days Time of Disposition: 22:05
[2020-12-22] MEDS ORDERED: MORPHINE SULFATE 4 MG/ML SYRINGE IM STA (19:50)
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
--- NOTE | 2020-12-22 21:30 | XR ---
EXAMINATION TYPE: XR Hip RT and AP Pelvis DATE OF EXAM: 12/22/2020 COMPARISON: 12/09/2020 HISTORY: Pain TECHNIQUE: 3 views FINDINGS: The pelvic ring is intact. There is a right hip prosthesis. Components appear in anatomic p osition. IMPRESSION: Negative pelvis and right hip exam. No fracture seen.
[2020-12-22 22:32] VITALS: BP 117/74; PULSE 88; RESP 18; TEMP 97.8
== END 2020-12-22 22:30 | disposition home or self-care (01) ==
LOC: EC 17:51
DX: S16.1XXA Strain of muscle, fascia and tendon at neck level, initial encounter (principal); M25.551 Pain in right hip; F32.9 Major depressive disorder, single episode, unspecified; F17.200 Nicotine dependence, unspecified, uncomplicated; F12.90 Cannabis use, unspecified, uncomplicated; Z79.891 Long term (current) use of opiate analgesic; Z79.899 Other long term (current) drug therapy; Z83.3 Family history of diabetes mellitus; W18.30XA Fall on same level, unspecified, initial encounter; Y93.01 Activity, walking, marching and hiking
CPT/HCPCS: 96372 ×2; 99284 ×2; 73502; 72125; 70450; J2270

== ENCOUNTER → 2021-01-21 | Outpatient (CLI) | payer MEDICARE ==
[2021-01-21 16:33] LABS: Appearance,Urine Clear (Clear); Bilirubin,Urine Negative (Negative); Color,Urine Yellow; Glucose,Urine (UA) Negative (Negative); HCT 43.3 % (39.0-53.0); HGB 14.4 gm/dL (13.0-17.5); Ketones,Urine Negative (Negative); MCH 31.8 pg (25.0-35.0); MCHC 33.3 g/dL (31.0-37.0); MCV 95.6 fL (80.0-100.0); Mean Platelet Volume 7.7; PH, Urine 6.5 (5.0-8.0); Platelet Count 337 k/uL (150-450); Protein,Urine Negative (Negative); RBC 4.53 m/uL (4.30-5.90); RDW 12.1 % (11.5-15.5); Specific Gravity,Urine 1.007 (1.001-1.035); WBC 7.9 k/uL (3.8-10.6)
[2021-01-21 16:34] LABS: Blood,Urine Negative (Negative); Leukocyte Esterase,Urine Negative (Negative); Nitrite,Urine Negative (Negative); Urobilinogen,Urine <2.0 mg/dL (<2.0)
[2021-01-21 16:44] LABS: ALT 10 U/L (4-49); AST 20 U/L (17-59); African American GFR (CKD) >90 (>60 ml/min/1.73 sqM); Albumin 3.9 g/dL (3.5-5.0); Alkaline Phosphatase 88 U/L (38-126); Anion Gap 9 mmol/L; Blood Urea Nitrogen 10 mg/dL (9-20); Calcium 9.7 mg/dL (8.4-10.2); Carbon Dioxide 23 mmol/L (22-30); Chloride 105 mmol/L (98-107); Glucose 119 mg/dL (74-99); Non-African American GFR(CKD) >90 (>60 ml/min/1.73 sqM); Potassium 4.1 mmol/L (3.5-5.1); Sodium 137 mmol/L (137-145); Total Bilirubin 0.4 mg/dL (0.2-1.3); Total Protein 6.4 g/dL (6.3-8.2)
[2021-01-21 16:49] LABS: INR 0.9 (<1.2); Partial Thromboplastin Time 26.3 sec (22.0-30.0); Prothrombin Time 9.8 sec (9.0-12.0)
== END | disposition home or self-care (01) ==
LOC: LABPAT 15:44
PROVIDERS: ATTEND Orthopaedic Surgery
DX: Z01.812 Encounter for preprocedural laboratory examination (principal)
CPT/HCPCS: 80053; 81003; 85027; 85610; 85730; 87070

== ENCOUNTER 2021-02-01 11:27 | Day surgery (SDC) | payer MEDICARE ==
[2021-01-28 12:35] VITALS: BMI 24.0
[~2021-02-01 11:27] MED LIST: ACETAMINOPHEN TAB 500 MG TAB PO PRN; DEXAMETHASONE SOD PHOSPHATE 4 MG/ML 1 ML VIAL IV ONE; GABAPENTIN 300 MG CAP PO PRN; LACTATED RINGERS 1,000 ML IV SCH; LIDOCAINE 1% (10MG/ML) FOR IV START INTRADERMA PRN; MELOXICAM 7.5 MG TAB PO PRN; MIDAZOLAM 2 MG/2 ML VIAL IV PRN; ONDANSETRON 4 MG/2 ML VIAL IVP ONE; ROPIVACAINE/EPI/CLONIDINE/KET 50 ML SYRINGE MISCELLANE PRN; TRANEXAMIC ACID 1,000 MG in SODIUM CHLORIDE 0.9% 100 ML IVPB PRN
[2021-02-01] MEDS ORDERED: LACTATED RINGERS 1,000 ML IV ONE ×2 (12:07→15:33)
[2021-02-01] MEDS ORDERED: LIDOCAINE 1% INJ 10MG/ML (20 ML MDV) ONE (14:17)
[2021-02-01] MEDS ORDERED: HYDROmorphone (PF) 1 MG/ML ONE (14:17)
[2021-02-01] MEDS ORDERED: SODIUM CHLORIDE 0.9% 100 ML BAG ONE (14:17)
[2021-02-01] MEDS ORDERED: MIDAZOLAM 2 MG/2 ML VIAL ONE (14:17)
[2021-02-01] MEDS ORDERED: ROCURONIUM 10 MG/ML (5 ML VIAL) IV ONE (14:17)
[2021-02-01] MEDS ORDERED: fentaNYL (PF) 50 MCG/ML 2 ML AMP ONE (14:17)
[2021-02-01] MEDS ORDERED: SODIUM CHLORIDE 0.9% IRRIG 1,000 ML BTL IRRIGATION ONE (14:17)
[2021-02-01] MEDS ORDERED: TRANEXAMIC ACID 1,000 MG/10 ML VIAL ONE (14:17)
[2021-02-01] MEDS ORDERED: HEPARIN SODIUM,PORCINE 10,000 UNIT/ML 1 ML VIAL ONE (14:17)
[2021-02-01] MEDS ORDERED: SUGAMMADEX SODIUM 500 MG/5 ML SDV IV ONE (14:17)
[2021-02-01] MEDS ORDERED: PROPOFOL 10 MG/ML 20 ML VIAL IV ONE (14:17)
[2021-02-01] MEDS ORDERED: ceFAZolin 1,000 MG in SODIUM CHLORIDE 0.9% 1,000 ML IRRIGATION ONE ×4 (14:47)
--- NOTE | 2021-02-01 16:14 | P.OP ---
Date of Procedure: 02/01/21 Preoperative Diagnosis: Right hip pain with acetabular arthrosis, status post right hip hemiarthroplasty Postoperative Diagnosis: Right hip pain with acetabular arthrosis, status post right hip hemiarthroplasty Procedure(s) Performed: Revision right total hip arthroplasty with conversion of a hemiarthroplasty to a total hip arthroplasty Implants: [employer] R3, 3 hole hemispherical acetabular shell, 54 mm [employer] Reflection 6.5 mm cancellus screw, 25 mm 2, 30 mm [employer] OR30 42mm ID, 54 mm OD Oxinium dual mobility liner [employer] OR30 28 mm ID, 42 mm OD dual mobility insert, XLPE Biomet modular head component, standard neck, 28 mm, cobalt chrome All components were press-fit. The articulation is Oxinium on polyethylene. Anesthesia: SRINIVASA Surgeon: Brannon Pacheco Metal Dealer #1: Vidya Baron Estimated Blood Loss (ml): 200 (69 mL returned with Cell Saver) Pathology: other (Cultures 2) Condition: stable Disposition: PACU Indications for Procedure: After failure of conservative treatment we discussed the surgical and nonsurgical treatment options at length. Patient wishes to proceed with a revision total hip arthroplasty with a conversion from a hemiarthroplasty to a total hip arthroplasty. Complications specific to this procedure were discussed at length, including but not limited to infection, leg length discrepancy, dislocation, nerve injury, and fracture. Covid-19 was also discussed at length with the patient, and they are aware of the current policies and procedures. The patient was given the option of delaying surgery, but they elect to proceed knowing these risks. Patient is aware of all these complications and informed consent was obtained Operative Findings: The operative findings are consistent with significant acetabular arthrosis following a right hip hemiarthroplasty. Description of Procedure: Patient was seen and evaluated in the preoperative area, consent was reviewed, and the surgical site was marked with a skin marker. Patient was then brought to the operating room and given prophylactic antibiotics intravenously. 1 g of Tranexamic acid was also given. A general anesthetic was administered by the anesthesia department. The patient was then placed on the operative table and placed in the lateral decubitus position with the bony prominences well-padded. The hip area was then prepped and draped in usual sterile fashion. A universal timeout was then performed, which confirmed the patient's name, surgical site, ALLERGIES, and procedure being performed. Next the incision site was located in the lateral aspect of the hip, centered at the tip of the greater trochanter.. The skin and subcutaneous tissues were sharply incised. Incision was carefully dissected down to the fascia. This fascia was then incised in line with the incision. Next, a Charnley retractor was then placed in the abductors were identified. The anterior one third of the abductors was released off the trochanter and one large sleeve. The anterior hip capsule was then exposed. The capsule was then opened. Cultures 2 were obtained. There is no evidence of any infection. The proximal femur was then visualized. The hip was then gently dislocated. The endoprosthetic head was then removed from the stem without difficulty. The stem was then visualized and found to have no evidence of any subsidence or loosening. Attention was directed to the acetabulum. The acetabulum was exposed and any remaining scar tissue was excised. Sequential reaming of the acetabulum was performed to a bed of bleeding cancellus bone. When the appropriate size was reached, a trial was then placed. The trial was then removed. Then the final implant was impacted at 20 of anteversion and 40 of abduction, and fully seated in the acetabulum. 3 screws were then placed in the acetabulum. Next, the dual mobility liner was then impacted Component locking was confirmed. Attention was then directed to the femur. A trial was then placed with appropriate head and neck, and the hip was gently reduced. The leg lengths were checked and found to be equal. Hip was then taken through full range of motion, was stable throughout. Next, the hip was gently dislocated, and the trials were removed. Final implants were then impacted and the hip was again reduced. The leg lengths were again examined and found to be equal. The hip was also taken through range of motion, and found to be stable. The hip was then copiously irrigated with antibiotic solution with pulsatile lavage. The hip was then irrigated with Irrisept solution. The soft tissues were then injected with ropivacaine solution. A second dose of 1 g of Tranexamic acid was given. The abductors were then repaired with #5 Ethibond suture with drill holes to the bone. The fascia was closed with #2 strata fix suture. The subcutaneous tissue was closed with 3-0 Vicryl. The subcuticular tissue was closed with 30 strata fix suture. The skin was then closed with Dermabond tape. The patient was then transferred to the recovery room in stable condition. The Asst.WINDY Andrade was required due to the complexity of surgery, and the need for skilled director surgical for positioning, draping, exposure, retraction, and closure of the wound.and closure of the wound.
[2021-02-01] MEDS ORDERED: HYDROmorphone 0.2 MG/1 ML SYRINGE IVP PRN (16:18)
[2021-02-01] MEDS ORDERED: HYDROmorphone 0.5 MG/0.5 ML SYRINGE IVP PRN (16:18)
[2021-02-01] MEDS ORDERED: ONDANSETRON 4 MG/2 ML VIAL IVP PRN (16:18)
[2021-02-01] MEDS ORDERED: NALOXONE 0.4 MG/ML 1 ML VIAL IV PRN (16:18)
[2021-02-01] MEDS ORDERED: diazePAM 5 MG TAB PO PRN (16:18)
[2021-02-01] MEDS ORDERED: hydrOXYzine pamoate 25 MG CAP PO PRN (16:18)
[2021-02-01] MEDS ORDERED: HYDROmorphone 1 MG/ML 1 ML SYRINGE IVP PRN (16:18)
[2021-02-01] MEDS ORDERED: MAGNESIUM HYDROXIDE 2,400 MG/10 ML CUP PO PRN (16:18)
[2021-02-01] MEDS: HYDROmorphone 0.5 MG/0.5 ML SYRINGE IVP PRN ×3 (16:20→16:48)
[2021-02-01] MEDS ORDERED: HYDROcodone/APAP 7.5-325MG 1 EACH TAB PO PRN (16:20)
[2021-02-01] MEDS ORDERED: MEPERIDINE 50 MG/ML SYRINGE IVP ONE ×2 (16:33→16:42)
--- NOTE | 2021-02-01 17:17 | XR ---
EXAMINATION TYPE: XR Hip Limited RT DATE OF EXAM: 02/01/2021 COMPARISON: 12/22/2020 HISTORY: Hip surgery TECHNIQUE: Kyle view FINDINGS: There is right hip prosthesis. Components appear in anatomic position. There is revision of the prosthesis involving the acetabular component compared to 12/22/2020. IMPRESSION: No complicating process seen.
[2021-02-01] MEDS: SODIUM CHLORIDE 0.9% 1,000 ML IV SCH (17:36)
[2021-02-01] MEDS ORDERED: ALBUTEROL NEBULIZED 2.5 MG/3 ML INHALATION PRN (17:48)
[2021-02-01] MEDS ORDERED: PATIENT'S OWN (Tadalafil [Tadalafil] 20 MG Tablet) PO SCH (18:00)
[2021-02-01] MEDS ORDERED: MIRTAZAPINE 15 MG TAB PO SCH (21:00)
[2021-02-01] MEDS ORDERED: SENNOSIDES-DOCUSATE SODIUM 1 EACH TAB PO SCH (21:00)
[2021-02-01] MEDS: MORPHINE SULFATE ER 15 MG TABLET PO SCH (21:56)
[2021-02-01] MEDS: BACLOFEN 10 MG TAB PO SCH (21:58)
[2021-02-01] MEDS: ASPIRIN 325 MG TAB PO SCH (21:58)
[2021-02-02] MEDS: SODIUM CHLORIDE 0.9% 1,000 ML IV SCH (07:40)
[2021-02-02] MEDS: ASPIRIN 325 MG TAB PO SCH (07:40)
[2021-02-02] MEDS: BACLOFEN 10 MG TAB PO SCH (07:40)
[2021-02-02] MEDS: HYDROcodone/APAP 7.5-325MG 1 EACH TAB PO PRN ×2 (07:41→13:28)
[2021-02-02 07:58] VITALS: BP 112/72; PULSE 73; RESP 18; TEMP 97
[2021-02-02] MEDS ORDERED: DULoxetine HCL 30 MG CAPSULE.DR PO SCH (09:00)
[2021-02-02] MEDS ORDERED: PANTOPRAZOLE 40 MG TABLET PO SCH (09:00)
[2021-02-02] MEDS: MORPHINE SULFATE ER 15 MG TABLET PO SCH (09:59)
[2021-02-02 10:14] LABS: Basophils # (A) 0.04 X 10*3/uL (0.00-0.10); Basophils % (A) 0.3 %; Eosinophils # (A) 0.04 X 10*3/uL (0.04-0.35); Eosinophils % (A) 0.3 %; HCT 34.8 % (39.6-50.0); HGB 11.4 g/dL (13.0-17.0); Lymphocytes # (A) 1.72 X 10*3/uL (0.90-5.00); Lymphocytes % (A) 12.2 %; MCH 31.5 pg (27.0-32.0); MCHC 32.8 g/dL (32.0-37.0); MCV 96.1 fL (80.0-97.0); Mean Platelet Volume 11.1 fL (9.5-12.2); Monocytes # (A) 1.24 X 10*3/uL (0.20-1.00); Monocytes % (A) 8.8 %; Neutrophils # (A) 10.99 X 10*3/uL (1.80-7.70); Platelet Count 284 X 10*3/uL (140-440); RBC 3.62 X 10*6/uL (4.40-5.60); RDW 12.5 % (11.5-14.5); WBC 14.09 X 10*3/uL (4.50-10.00)
--- NOTE | 2021-02-02 10:38 | P.DS ---
Providers Expected date of discharge: 02/02/21 Attending physician: Brannon Pacheco Consults: 02/01/21 16:18 Consult Physician Routine Consulting Provider: Mack Fox Consult Reason/Comments: medical management Do you want consulting provider notified?: Yes Primary care physician: Mack Fox - Discharge Diagnosis(es) (1) Status post revision of total hip Current Visit: Yes Status: Acute (2) Status post total hip replacement, right Current Visit: Yes Status: Acute Hospital Course: This is a 55-year-old male with known history of hemiarthroplasty of the right hip secondary to hip fracture. The patient presents for evaluation. After discussion and consideration patient elects to proceed with revision hemiarthroplasty to total hip arthroplasty. The patient is seen preoperatively by his primary care physician and cleared for surgery. Patient is [facility] to [facility] on 02/01[facility]2021 for revision hemiarthroplasty to total hip arthroplasty. The procedures performed without complication or sequelae. The patient is doing well postoperatively. Labs and vital signs are stable on day of discharge. On day of discharge patient's hip incision is healing well. There is minimal erythema. There is no drainage noted at this time. There is minimal soft tissue swelling to the hip and thigh. Patient has full foot and ankle motion without difficulty or pain. Neurovascular status to the right lower extremity is intact. Patient is discharged to home in good condition. Please see med rec for accurate list of home medications. Patient Condition at Discharge: Good Plan - Discharge Summary Discharge Rx Participant: No New Discharge Prescriptions: New Aspirin 325 mg PO BID #60 tab Ondansetron Odt [Zofran Odt] 1 tab PO Q8HR PRN #10 tab PRN Reason: Nausea No Action Baclofen [Lioresal] 20 mg PO TID rOPINIRole HCL [Requip] 0.5 mg PO HS DULoxetine HCL [Cymbalta] 30 mg PO QAM HYDROcodone/APAP 7.5-325MG [[place] 7.5-325] 1 tab PO BID PRN PRN Reason: Pain Mirtazapine [Remeron] 30 mg PO HS Pantoprazole Sodium [Protonix] 40 mg PO QAM tadalafiL [Tadalafil] 20 mg PO Q3D Morphine Sulfate [Ms Contin] 15 mg PO Q12HR PRN PRN Reason: Pain Albuterol Inhaler [Ventolin Hfa Inhaler] 2 puff INHALATION RT-QID PRN PRN Reason: Shortness Of Breath Discharge Medication List Baclofen [Lioresal] 20 mg PO TID 12/21/15 [History] rOPINIRole HCL [Requip] 0.5 mg PO HS 06/18/17 [History] DULoxetine HCL [Cymbalta] 30 mg PO QAM 04/17/20 [History] HYDROcodone/APAP 7.5-325MG [[place] 7.5-325] 1 tab PO BID PRN 04/17/20 [History] Mirtazapine [Remeron] 30 mg PO HS 04/17/20 [History] Pantoprazole Sodium [Protonix] 40 mg PO QAM 04/17/20 [History] tadalafiL [Tadalafil] 20 mg PO Q3D 11/17/20 [History] Albuterol Inhaler [Ventolin Hfa Inhaler] 2 puff INHALATION RT-QID PRN 01/28/21 [History] Morphine Sulfate [Ms Contin] 15 mg PO Q12HR PRN 01/28/21 [History] Aspirin 325 mg PO BID #60 tab 02/01/21 [Rx] Ondansetron Odt [Zofran Odt] 1 tab PO Q8HR PRN #10 tab 02/01/21 [Rx] Follow up Appointment(s)/Referral(s): [facility], [NON-STAFF] - ([facility] will call you to arrange the time for your first visit on 02/03/21.) Brannon Pacheco DO [Doctor of Osteopathic Medicine] - 02/16/21 10:30 am Activity/Diet/Wound Care/Special Instructions: Weightbearing as tolerated with walker. Leave dressing intact. Dressing may be removed by home care nurse or by patient in 7 days. Then change dressing twice daily until follow up. May shower with initial dressing intact and after removal. If dressing become saturated, please remove. Please take aspirin 325mg twice daily for 30 days to prevent blood clots. Pain medicine per pain management doctor. Recommend use of compression stockings daily until follow up to help prevent swelling and blood clots. May remove at night before sleeping. [facility] with [facility] weeks and call with any questions or concerns, . Discharge Disposition: HOME WITH HOME HEALTH SERVICES
--- NOTE | 2021-02-02 15:50 | P.CONS ---
History of Present Illness - Reason for Consult Consult date: 02/02/21 Medical management Requesting physician: Brannon Pacheco - History of Present Illness This is a pleasant 55-year-old gentleman with past medical history of multiple sclerosis, falls, chronic neck and back pain, Crohn's disease, migraines, ongoing nicotine dependence, status post revision mild arthroplasty to total right hip replacement. Tolerated procedure well. Pain controlled. Has not yet taken up with PT. passing flatus, no bowel movement. Denies lightheadedness or focal deficits. Denies chest pain, palpitations or shortness of breath.maintained on gentle IV fluid hydration VSS. Review of Systems ROS Statement: Those systems with pertinent positive or pertinent negative responses have been documented in the HPI. ROS Other: All systems not noted in ROS Statement are negative. Past Medical History Past Medical History: COPD, Eye Disorder, Musculoskeletal Disorder, Neurologic Disorder, Osteoarthritis (OA) Additional Past Medical History / Comment(s): hx. falls, occasional DOUBLE VISION. CHRONIC BACK, NECK PAIN. HAD SPINAL STIMULATOR, THEN REMOVED; Migraine headache. Crohn's disease, lt ear [place] History of Any Multi-Drug Resistant Organisms: MRSA Year Discovered:: 2014 MDRO Source:: lower back Past Surgical History: Appendectomy, Back Surgery, Bowel Resection, Hernia Repair, Joint Replacement Additional Past Surgical History / Comment(s): CERVICAL FUSION. SPINAL STIMULATOR implantation, revision and removal. FOREIGN BODY REMOVED RT CHEST WALL. 10/18/2015 wire removed from back. (from stimulator), right hip replaced Past Anesthesia/Blood Transfusion Reactions: Previous Problems w/ Anesthesia Additional Past Anesthesia/Blood Transfusion Reaction / Comm: STATES TAKES A LONG TIME TO WAKE UP Past Psychological History: Depression Additional Psychological History / Comment(s): pt lives with and 2 childre n. uses cane when up. no home cares services,. Smoking Status: Current every day smoker Past Alcohol Use History: None Reported Additional Past Alcohol Use History / Comment(s): Smoker Since Age 13, smoked 1ppd now down to 1/2 ppd. Past Drug Use History: Marijuana Additional Drug Use History / Comment(s): occasional use - Past Family History Father Family Medical History: Cancer, Diabetes Mellitus Additional Family Medical History / Comment(s): CABG-TRIPLE BYPASS, Mother Family Medical History: Cancer, CVA/TIA, Diabetes Mellitus Additional Family Medical History / Comment(s): Stroke Medications and Allergies Home Medications Medication Instructions Recorded Confirmed Type Baclofen [Lioresal] 20 mg PO TID 12/21/15 01/28/21 History rOPINIRole HCL [Requip] 0.5 mg PO HS 06/18/17 01/28/21 History DULoxetine HCL [Cymbalta] 30 mg PO QAM 04/17/20 01/28/21 History HYDROcodone/APAP 7.5-325MG [[place] 1 tab PO BID PRN 04/17/20 01/28/21 History 7.5-325] Mirtazapine [Remeron] 30 mg PO HS 04/17/20 01/28/21 History Pantoprazole Sodium [Protonix] 40 mg PO QAM 04/17/20 01/28/21 History tadalafiL [Tadalafil] 20 mg PO Q3D 11/17/20 01/28/21 History Albuterol Inhaler [Ventolin Hfa 2 puff INHALATION RT-QID PRN 01/28/21 01/28/21 History Inhaler] Morphine Sulfate [Ms Contin] 15 mg PO Q12HR PRN 01/28/21 01/28/21 History Aspirin 325 mg PO BID #60 tab 02/01/21 Rx Ondansetron Odt [Zofran Odt] 1 tab PO Q8HR PRN #10 tab 02/01/21 Rx Allergies Allergy/AdvReac Type Severity Reaction Status Date / Time No Known Allergies Allergy Verified 01/28/21 12:35 Physical Exam Vitals: Vital Signs Temp Pulse Resp BP BP Pulse Ox 02/02/21 07:58 97.0 F L 73 18 112/72 97 02/02/21 02:00 97.7 F 65 13 103/65 95 02/01/21 20:00 97.7 F 75 12 110/68 94 L 02/01/21 19:47 71 113/72 02/01/21 19:32 75 110/68 02/01/21 19:17 70 112/69 02/01/21 19:02 78 114/71 02/01/21 18:47 81 111/69 02/01/21 18:32 78 131/72 02/01/21 18:19 85 109/70 02/01/21 18:15 96.9 F L 79 18 116/70 93 L 02/01/21 18:02 97.0 F L 69 116/70 94 L 02/01/21 17:15 72 16 106/56 99 02/01/21 17:00 77 16 118/61 92 L 02/01/21 16:45 76 16 133/62 99 02/01/21 16:30 74 16 133/62 98 02/01/21 16:15 75 16 141/69 99 02/01/21 16:14 97.4 F L 74 14 140/66 96 02/01/21 12:06 98.2 F 76 18 109/58 99 Intake and Output 02/01/21 02/02/21 02/02/21 22:59 06:59 14:59 Intake Total 800 Output Total 200 450 Balance 600 -450 Intake: IV 200 Oral 600 Output: Urine 450 Estimated Blood Loss 200 Other: Voiding Method Toilet # Voids 1 Weight 82.554 kg - Exam PHYSICAL EXAM: VITAL SIGNS: As above GENERAL: Sitting up in bed, no acute distress HEENT: Conjunctivae normal. eyes normal. Oral mucosa moist NECK: No JVD. No thyroid enlargement. No LNs CARDIOVASCULAR: S1, S2 regular..No murmur RESPIRATION: Breath sounds diminished in the bases. No rhonchi or crackles. No bronchial breathing. ABDOMEN: Soft, nontender . No guarding. no masses palpable. No ascites, No hepatosplenomegaly.Bowel sounds heard. EXTR: Right hip with minimal edema/erythema,dressing clean dry and intact, positive DP pulses. Denies calf tenderness. PSYCHIATRY: Alert and oriented X3, mood and affect normal. NERVOUS SYSTEM: Cranial N 2-12 grossly normal. Moves all 4 limbs. No focal deficits. Strength and sensation grossly intact. Skin: Warm and dry, no rash. Results CBC & Chem 7: 02/02/21 05:39 Labs: Abnormal Lab Results - Last 24 Hours (Table) 02/02/21 Range/Units 05:39 WBC 14.09 H (4.50-10.00) X 10*3/uL RBC 3.62 L (4.40-5.60) X 10*6/uL Hgb 11.4 L (13.0-17.0) g/dL Hct 34.8 L (39.6-50.0) % Immature Gran # 0.06 H (0.00-0.04) X 10*3/uL Neutrophils # 10.99 H (1.80-7.70) X 10*3/uL Monocytes # 1.24 H (0.20-1.00) X 10*3/uL Microbiology - Last 24 Hours (Table) 02/01/21 14:51 Gram Stain - Preliminary Hip - Right Wound Culture - Preliminary 02/01/21 14:51 Gram Stain - Preliminary Hip - Right Wound Culture - Preliminary 02/01/21 14:51 Anaerobic Culture - Preliminary Hip - Right 02/01/21 14:51 Anaerobic Culture - Preliminary Hip - Right Assessment and Plan Assessment: Status post elective revision hemiarthroplasty to total right hip arthroplasty Multiple sclerosis Chronic nicotine dependence Chronic back pain Crohn's disease Plan: Continue on current medication regime ,monitoring and symptomatic treatment. All meds have been reviewed and resumed accordingly. PT. Pain management. Aggressive pulmonary toileting with incentive spirometer reinforced. Smoking sensation reinforced. Discharge planning in progress as per orthopedic surgery. Follow-up with PCP in one week. Thank you for the consult Dr. Pacheco. The impression and plan of care has been dictated as directed. : I performed a history and examination of this patient, discussed the same with the dictator. I agree with the dictator's note ,documented as a scribe. Any additional findings or plans will be noted.
== END 2021-02-02 13:53 | disposition home health service (06) ==
LOC: OR 11:27 → 4SSUR 16:37 → OR 02-02 13:53
PROVIDERS: ATTEND Orthopaedic Surgery
DX: M25.551 Pain in right hip (principal); R06.02 Shortness of breath; R11.0 Nausea; Z96.641 Presence of right artificial hip joint; J44.9 Chronic obstructive pulmonary disease, unspecified; M19.90 Unspecified osteoarthritis, unspecified site; F17.200 Nicotine dependence, unspecified, uncomplicated; K50.90 Crohn's disease, unspecified, without complications; G89.29 Other chronic pain; M54.9 Dorsalgia, unspecified; G35 Multiple sclerosis
CPT/HCPCS: 27130; 97161; 97535; 97165; 86891; 86900; 86901; 85025; 86850; 87070; 87205; 87075; 73501; P9022; C1776; J2250; J1644; J1100; J2175; J0690 ×3; J2405; J2001; J3010; J1170 ×2; J2704

== ENCOUNTER 2021-06-12 23:42 | Emergency (ER) | payer MEDICARE ==
[2021-06-12 23:53] VITALS: BP 103/61; RESP 16; TEMP 98.6
[2021-06-13] MEDS ORDERED: HYDROmorphone 1 MG/ML 1 ML SYRINGE IVP STA (00:07)
--- NOTE | 2021-06-13 00:08 | ED ---
Lower Extremity Injury HPI - General Chief Complaint: Extremity Injury, Lower Stated Complaint: Hip Dislocation Time Seen by Provider: 06/13/21 00:02 Source: patient, EMS Mode of arrival: EMS Limitations: no limitations - History of Present Illness MD Complaint: hip injury Onset/Timin -: minutes(s) Injury: Hip: Right Type of Injury: hyperflexion Place: home Severity: severe Improves With: nothing Worsens With: movement Context: other Associated Symptoms: unable to bear weight Treatments Prior to Arrival: other - Related Data Home Medications Medication Instructions Recorded Confirmed Baclofen [Lioresal] 20 mg PO TID 12/21/15 01/28/21 rOPINIRole HCL [Requip] 0.5 mg PO HS 06/18/17 01/28/21 DULoxetine HCL [Cymbalta] 30 mg PO QAM 04/17/20 01/28/21 HYDROcodone/APAP 7.5-325MG [[place] 1 tab PO BID PRN 04/17/20 01/28/21 7.5-325] Mirtazapine [Remeron] 30 mg PO HS 04/17/20 01/28/21 Pantoprazole Sodium [Protonix] 40 mg PO QAM 04/17/20 01/28/21 tadalafiL 20 mg PO Q3D 11/17/20 01/28/21 Albuterol Inhaler [Ventolin Hfa 2 puff INHALATION RT-QID PRN 01/28/21 01/28/21 Inhaler] Morphine Sulfate [Ms Contin] 15 mg PO Q12HR PRN 01/28/21 01/28/21 Previous Rx's Medication Instructions Recorded Aspirin 325 mg PO BID #60 tab 02/01/21 Ondansetron Odt [Zofran Odt] 1 tab PO Q8HR PRN #10 tab 02/01/21 Allergies Allergy/AdvReac Type Severity Reaction Status Date / Time No Known Allergies Allergy Verified 01/28/21 12:35 Review of Systems ROS Statement: Those systems with pertinent positive or pertinent negative responses have been documented in the HPI. ROS Other: All systems not noted in ROS Statement are negative. Constitutional: Denies: fever, chills Respiratory: Denies: cough, dyspnea Cardiovascular: Denies: chest pain, palpitations, edema Gastrointestinal: Reports: abdominal pain (Chronic). Denies: vomiting Genitourinary: Denies: dysuria, hematuria Musculoskeletal: Reports: as per HPI, arthralgia. Denies: back pain Skin: Denies: rash Neurological: Denies: headache, weakness, numbness, paresthesias Past Medical History Past Medical History: Eye Disorder, Musculoskeletal Disorder, Neurologic Disorder Additional Past Medical History / Comment(s): Multiple sclerosis USES A CANE TO AMBULATE, falls. has had in past occasional DOUBLE VISION. CHRONIC BACK NECK PAIN. HAD SPINAL STIMULATOR, THEN REMOVED; Migraine headache. Crohn's disease.lt ear [place] History of Any Multi-Drug Resistant Organisms: MRSA Date of last positivie culture/infection: 2014 MDRO Source:: lower back Past Surgical History: Appendectomy, Back Surgery, Bowel Resection, Hernia Repair Additional Past Surgical History / Comment(s): CERVICAL FUSION. SPINAL STIMULATOR implantation, revision and removal. FOREIGN BODY REMOVED RT CHEST WALL. 10/18/2015 wire removed from back. (from stimulator) Past Anesthesia/Blood Transfusion Reactions: Previous Problems w/ Anesthesia Additional Past Anesthesia/Blood Transfusion Reaction / Comment(s): STATES TAKES A LONG TIME TO WAKE UP Past Psychological History: Depression Smoking Status: Current every day smoker Past Alcohol Use History: None Reported Past Drug Use History: Marijuana - Past Family History Father Family Medical History: Cancer, Diabetes Mellitus Additional Family Medical History / Comment(s): CABG-TRIPLE BYPASS, Mother Family Medical History: Cancer, CVA/TIA, Diabetes Mellitus Additional Family Medical History / Comment(s): Stroke General Exam Limitations: no limitations General appearance: alert, in no apparent distress Head exam: Present: atraumatic, normocephalic Eye exam: Present: normal appearance. Absent: scleral icterus, conjunctival injection Respiratory exam: Present: normal lung sounds bilaterally. Absent: respiratory distress, wheezes, rales, rhonchi, stridor Cardiovascular Exam: Present: regular rate, normal rhythm, normal heart sounds. Absent: systolic murmur, diastolic murmur, rubs, gallop GI/Abdominal exam: Present: soft. Absent: distended, tenderness, guarding, rebound, rigid, mass Extremities exam: Present: normal capillary refill. Absent: normal inspection, pedal edema, calf tenderness Right Hip exam: Present: tenderness. Absent: full ROM Upper Leg exam: Absent: tenderness, swelling Knee exam: Present: normal inspection, full ROM. Absent: tenderness, swelling, abrasion Lower Leg exam: Present: normal inspection, full ROM. Absent: tenderness, swelling, abrasion Ankle exam: Present: normal inspection, full ROM. Absent: tenderness, swelling Foot/Toe exam: Present: normal inspection, full ROM. Absent: tenderness, swelling Course Vital Signs 06/12/21 23:49 Temperature 98.6 F Pulse Rate 57 L Respiratory 16 Rate Blood Pressure 103/61 O2 Sat by Pulse 96 Oximetry Disposition Clinical Impression: Right hip pain Disposition: HOME SELF-CARE Condition: Good Instructions (If sedation given, give patient instructions): Hip Sprain (ED) Is patient prescribed a controlled substance at d/c from ED?: No Referrals: Mack Fox DO [Primary Care Provider] - 1-2 days Truong Hu MD [STAFF PHYSICIAN] - 1-2 days
--- NOTE | 2021-06-13 00:40 | XR ---
EXAMINATION TYPE: XR Hip Complete RT DATE OF EXAM: 06/13/2021 COMPARISON: 02/01/2021 HISTORY: Pain TECHNIQUE: 2 views FINDINGS: There is right hip prosthesis. Components appear in anatomic position. There is no evidence of a fracture. IMPRESSION: No fracture. No change compared to old exam.
--- NOTE | 2021-06-13 01:38 | XR ---
EXAMINATION TYPE: XR Hip Limited RT DATE OF EXAM: 06/13/2021 COMPARISON: Today HISTORY: Hip pain TECHNIQUE: Single view FINDINGS: There is right hip prosthesis in anatomic position. I see no evidence of a fracture. IMPRESSION: No fracture seen.
[2021-06-13 02:38] VITALS: PULSE 60
== END 2021-06-13 02:38 | disposition home or self-care (01) ==
LOC: EC 23:42
DX: M25.551 Pain in right hip (principal); F17.200 Nicotine dependence, unspecified, uncomplicated; X50.9XXA Other and unspecified overexertion or strenuous movements or postures, initial encounter; Y92.009 Unspecified place in unspecified non-institutional (private) residence as the place of occurrence of the external cause
CPT/HCPCS: 73501; 73502; 99284; 96374; J1170

== ENCOUNTER 2021-09-14 00:32 | Observation (INO) | payer MEDICARE ==
[2021-09-14] MEDS ORDERED: ASPIRIN 81 MG PO STA (00:42)
[2021-09-14] MEDS ORDERED: SODIUM CHLORIDE 0.9% 500 ML 500 ML IV STA (00:42)
[2021-09-14] MEDS ORDERED: NALOXONE 0.4 MG/ML 1 ML VIAL IVP STA (00:43)
[2021-09-14 01:13] LABS: Basophils # (A) 0.1 k/uL (0-0.2); Basophils % (A) 1 %; Eosinophils # (A) 0.2 k/uL (0-0.7); Eosinophils % (A) 2 %; HCT 38.5 % (39.0-53.0); HGB 12.7 gm/dL (13.0-17.5); Lymphocytes # (A) 2.1 k/uL (1.0-4.8); Lymphocytes % (A) 27 %; MCH 32.1 pg (25.0-35.0); MCHC 32.9 g/dL (31.0-37.0); MCV 97.6 fL (80.0-100.0); Mean Platelet Volume 7.8; Monocytes # (A) 0.5 k/uL (0-1.0); Monocytes % (A) 6 %; Neutrophils # (A) 4.9 k/uL (1.3-7.7); Neutrophils % (A) 63 %; Platelet Count 291 k/uL (150-450); RBC 3.95 m/uL (4.30-5.90); RDW 12.5 % (11.5-15.5); WBC 7.8 k/uL (3.8-10.6)
[2021-09-14 01:15] LABS: VBG PH 7.32 (7.31-7.41)
[2021-09-14 01:22] LABS: INR 0.9 (<1.2); Partial Thromboplastin Time 24.6 sec (22.0-30.0); Prothrombin Time 10.1 sec (9.0-12.0)
--- NOTE | 2021-09-14 01:23 | ED ---
Chest Pain HPI - General Chief Complaint: Chest Pain Stated Complaint: Chest Pain Time Seen by Provider: 09/14/21 00:36 Source: patient, EMS, RN notes reviewed Mode of arrival: EMS - History of Present Illness Initial Comments: This is a pleasant 56-year-old male who presents to emergency department after developing chest pain at about 11:45 PM. He states he had pressure in the center of his chest without radiation. No dyspnea. No diaphoresis. No nausea. Patient states this seemed to froilan after about 15 minutes. Patient noted that he had just got up from sitting down. Patient had just smoked marijuana prior to onset. No headache, no fever or chills, no changes in vision or hearing, no sore throat or difficulty with speech, no neck pain, no shortness of breath, no abdominal pain, no nausea or vomiting, no changes in urination or bowel movements, no numbness or tingling, no extremity pain, no skin rashes or lesions. MD Complaint: chest pain - Related Data Home Medications Medication Instructions Recorded Confirmed Baclofen [Lioresal] 20 mg PO TID 12/21/15 01/28/21 rOPINIRole HCL [Requip] 0.5 mg PO HS 06/18/17 01/28/21 DULoxetine HCL [Cymbalta] 30 mg PO QAM 04/17/20 01/28/21 HYDROcodone/APAP 7.5-325MG [[place] 1 tab PO BID PRN 04/17/20 01/28/21 7.5-325] Mirtazapine [Remeron] 30 mg PO HS 04/17/20 01/28/21 Pantoprazole Sodium [Protonix] 40 mg PO QAM 04/17/20 01/28/21 tadalafiL 20 mg PO Q3D 11/17/20 01/28/21 Albuterol Inhaler [Ventolin Hfa 2 puff INHALATION RT-QID PRN 01/28/21 01/28/21 Inhaler] Morphine Sulfate [Ms Contin] 15 mg PO Q12HR PRN 01/28/21 01/28/21 Previous Rx's Medication Instructions Recorded Aspirin 325 mg PO BID #60 tab 02/01/21 Ondansetron Odt [Zofran Odt] 1 tab PO Q8HR PRN #10 tab 02/01/21 Allergies Allergy/AdvReac Type Severity Reaction Status Date / Time No Known Allergies Allergy Verified 01/28/21 12:35 Review of Systems ROS Statement: Those systems with pertinent positive or pertinent negative responses have been documented in the HPI. ROS Other: All systems not noted in ROS Statement are negative. Past Medical History Past Medical History: Eye Disorder, Musculoskeletal Disorder, Neurologic Disorder Additional Past Medical History / Comment(s): Multiple sclerosis USES A CANE TO AMBULATE, falls. has had in past occasional DOUBLE VISION. CHRONIC BACK NECK PAIN. HAD SPINAL STIMULATOR, THEN REMOVED; Migraine headache. Crohn's disease.lt ear [place] History of Any Multi-Drug Resistant Organisms: MRSA Date of last positivie culture/infection: 2014 MDRO Source:: lower back Past Surgical History: Appendectomy, Back Surgery, Bowel Resection, Hernia Repair Additional Past Surgical History / Comment(s): CERVICAL FUSION. SPINAL STIMULATOR implantation, revision and removal. FOREIGN BODY REMOVED RT CHEST WALL. 10/18/2015 wire removed from back. (from stimulator) Past Anesthesia/Blood Transfusion Reactions: Previous Problems w/ Anesthesia Additional Past Anesthesia/Blood Transfusion Reaction / Comment(s): STATES TAKES A LONG TIME TO WAKE UP Past Psychological History: Depression Smoking Status: Current every day smoker Past Alcohol Use History: Occasional Past Drug Use History: Marijuana - Past Family History Father Family Medical History: Cancer, Diabetes Mellitus Additional Family Medical History / Comment(s): CABG-TRIPLE BYPASS, Mother Family Medical History: Cancer, CVA/TIA, Diabetes Mellitus Additional Family Medical History / Comment(s): Stroke General Exam General appearance: alert, in no apparent distress Head exam: Present: atraumatic, normocephalic, normal inspection Eye exam: Present: normal appearance, PERRL, EOMI. Absent: scleral icterus, conjunctival injection, periorbital swelling ENT exam: Present: normal exam, normal oropharynx, mucous membranes moist, TM's normal bilaterally Neck exam: Present: normal inspection, full ROM. Absent: tenderness, meningismus, lymphadenopathy Respiratory exam: Present: normal lung sounds bilaterally. Absent: respiratory distress, wheezes, rales, rhonchi, stridor, chest wall tenderness, accessory muscle use Cardiovascular Exam: Present: regular rate, normal rhythm, normal heart sounds. Absent: systolic murmur, diastolic murmur, rubs, gallop, clicks GI/Abdominal exam: Present: soft, normal bowel sounds. Absent: distended, tenderness, guarding, rebound, rigid Extremities exam: Present: normal inspection, full ROM, normal capillary refill. Absent: tenderness, pedal edema, joint swelling, calf tenderness Back exam: Present: normal inspection Neurological exam: Present: alert, oriented X3, CN II-XII intact Psychiatric exam: Present: normal affect, normal mood Skin exam: Present: warm, dry, intact, normal color. Absent: rash Course Vital Signs 09/14/21 09/14/21 09/14/21 00:34 01:06 02:21 Temperature 97.5 F L Pulse Rate 62 86 Respiratory 18 16 18 Rate Blood Pressure 87/52 123/70 O2 Sat by Pulse 94 L 99 Oximetry - Reevaluation(s) Reevaluation #1: 09/14/21 01:23 Medical record is reviewed Symptoms are improved here in the emergency department Patient is informed of results and questions answered Patient in no distress 09/14/21 01:26 Patient's blood pressure has normalized Chest Pain MDM - MDM Patient admitted to marijuana use prior to onset of chest pain.. Patient appears to be somewhat sedated at the time I'm seeing him. No focal neurologic deficits. Sedation appears to be global. He denies any other substance intake. Disposition Clinical Impression: Chest pain, Hypotension, Sedated due to medication Disposition: ADMITTED IP TO THIS [facility] Condition: Stable Referrals: Mack Fox DO [Primary Care Provider] - 1-2 days Time of Disposition: 02:43
[2021-09-14 01:30] LABS: ALT 12 U/L (4-49); AST 22 U/L (17-59); Acetaminophen <10.0 ug/mL; African American GFR (CKD) >90 (>60 ml/min/1.73 sqM); Albumin 3.4 g/dL (3.5-5.0); Alkaline Phosphatase 73 U/L (38-126); Anion Gap 5 mmol/L; Blood Urea Nitrogen 11 mg/dL (9-20); Calcium 8.7 mg/dL (8.4-10.2); Carbon Dioxide 26 mmol/L (22-30); Chloride 104 mmol/L (98-107); Glucose 93 mg/dL (74-99); Magnesium 1.9 mg/dL (1.6-2.3); Non-African American GFR(CKD) >90 (>60 ml/min/1.73 sqM); Potassium 3.5 mmol/L (3.5-5.1); Sodium 135 mmol/L (137-145); Total Bilirubin 0.3 mg/dL (0.2-1.3); Total Protein 6.1 g/dL (6.3-8.2)
--- NOTE | 2021-09-14 01:35 | XR ---
EXAMINATION TYPE: XR chest 1V portable DATE OF EXAM: 09/14/2021 COMPARISON: 04/17/2020 HISTORY: Chest pain TECHNIQUE: Single view FINDINGS: There is no heart failure or confluent pneumonic infiltrate. Costophrenic angles are clear. There are no hilar masses. Bony thorax is intact. There is cervical spine fusion surgery. IMPRESSION: No active cardiopulmonary disease. Normal heart. No change.
[2021-09-14] MEDS ORDERED: NALOXONE 0.4 MG/ML 1 ML VIAL IV PRN (03:27)
[2021-09-14] MEDS ORDERED: ONDANSETRON 4 MG/2 ML VIAL IVP PRN (03:27)
[2021-09-14] MEDS ORDERED: SODIUM CHLORIDE 0.9% 1,000 ML IV SCH (03:30)
[2021-09-14 03:53] LABS: Appearance,Urine Clear (Clear); Bilirubin,Urine Negative (Negative); Blood,Urine Negative (Negative); Color,Urine Yellow; Glucose,Urine (UA) Negative (Negative); Ketones,Urine Negative (Negative); Leukocyte Esterase,Urine Negative (Negative); Nitrite,Urine Negative (Negative); PH, Urine 5.5 (5.0-8.0); Protein,Urine Negative (Negative); Specific Gravity,Urine 1.018 (1.001-1.035); Urobilinogen,Urine <2.0 mg/dL (<2.0)
[2021-09-14 04:07] LABS: Amphetamine Screen,Urine Not Detected (NotDetected); Barbiturate Screen,Urine Not Detected (NotDetected); Benzodiazepines Screen,Urine Not Detected (NotDetected); Cocaine Screen,Urine Not Detected (NotDetected); Methadone Screen, Urine Not Detected (NotDetected); Opiate Screen,Urine Detected (NotDetected); Oxycodone Screen, Urine Not Detected (NotDetected); Phencyclidine Screen,Urine Not Detected (NotDetected); Tricyclic Antidepressant,Urine Detected (NotDetected); Urn Cannabinoid Scrn Detected (NotDetected)
[2021-09-14] MEDS ORDERED: ENOXAPARIN 40 MG/0.4 ML SYRINGE SQ SCH (09:00)
--- NOTE | 2021-09-14 10:57 | P.CRDCN ---
History of Present Illness History of present illness: HISTORY OF PRESENT ILLNESS: This is a 56-year-old male with a past medical history significant for nonischemic cardiomyopathy, valvular heart disease, and chronic back and neck pain. Patient follows in the office with Dr. Geronimo. We have been asked to see the patient in consultation for chest pain. Patient examined at the bedside. Patient states yesterday he began feeling dizzy and fall he couldn't get enough air. He states after that he began having some chest pressure. Patient states he was started on Lyrica one week ago and is unsure if his symptoms are related to his new medication. At the time of examination, the patient denies chest pain or pressure. * EKG reveals sinus mechanism with no signs of acute ischemia * Chest xray negative for acute process * Laboratory data: WBC 7.8. Hemoglobin 12.7. Platelet count 291. D-dimer 0.57. Sodium 135. Potassium 3.5. Troponin negative 3. * Current home cardiac medications include none * Most recent echocardiogram obtained in March 2021 revealed ejection fraction 40-45%, mild MR, mild TR * Cardiac catheterization history: 2016 revealing normal coronary arteries * Patient underwent Lexiscan stress test in June 2020 which was negative for ischemia REVIEW OF SYSTEMS: At the time of my exam: CONSTITUTIONAL: Denies fever or chills. HEENT: Denies blurred vision, vision changes, or eye pain. Denies hemoptysis CARDIOVASCULAR: Denies chest pain. Denies orthopnea. Denies PND. Denies palpitations RESPIRATORY: Denies shortness of breath. GASTROINTESTINAL: Denies abdominal pain. Denies nausea or vomiting. HEMATOLOGIC: Denies bleeding disorders. GENITOURINARY: Denies any blood in urine. SKIN: Denies pruitis. Denies rash. PHYSICAL EXAM: VITAL SIGNS: Reviewed. GENERAL: Well-developed in no acute distress. HEENT: Head is normocephalic. Pupils are equal, round. Sclerae anicteric. Mucous membranes of the mouth are moist. Neck supple. No JVD or thyromegaly LUNGS: Respirations even and unlabored. Lungs essentially clear to auscultation bilaterally. HEART: Regular rate and rhythm. S1 and S2 heard. ABDOMEN: Soft. Nondistended. Nontender. EXTREMITIES: Normal range of motion. No clubbing or cyanosis. Peripheral pulses intact. No lower extremity edema NEUROLOGIC: Awake and alert. Oriented x 3. ASSESSMENT: Chest pain History of nonischemic remapping Valvular heart disease Chronic back and neck pain Nicotine dependence Marijuana use PLAN: An acute coronary event has been ruled out Obtain 2D echo to assess cardiac structure and function Patient may be discharged home today and follow up outpatient with Dr. Geronimo Nurse practitioner note has been reviewed by physician. Signing provider agrees with the documented findings, assessment, and plan of care. Past Medical History Past Medical History: Eye Disorder, Musculoskeletal Disorder, Neurologic Disorder Additional Past Medical History / Comment(s): Multiple sclerosis USES A CANE TO AMBULATE, falls. has had in past occasional DOUBLE VISION. CHRONIC BACK NECK PAIN. HAD SPINAL STIMULATOR, THEN REMOVED; Migraine headache. 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 SPINAL STIMULATOR implantation, revision and removal. FOREIGN BODY REMOVED RT CHEST WALL. 10/18/2015 wire removed from back. (from stimulator) Past Anesthesia/Blood Transfusion Reactions: Previous Problems w/ Anesthesia Additional Past Anesthesia/Blood Transfusion Reaction / Comment(s): STATES TAKES A LONG TIME TO WAKE UP Past Psychological History: Depression Smoking Status: Current every day smoker Past Alcohol Use History: Occasional Past Drug Use History: Marijuana - Past Family History Father Family Medical History: Cancer, Diabetes Mellitus Additional Family Medical History / Comment(s): CABG-TRIPLE BYPASS, Mother Family Medical History: Cancer, CVA/TIA, Diabetes Mellitus Additional Family Medical History / Comment(s): Stroke Medications and Allergies Home Medications Medication Instructions Recorded Confirmed Type Baclofen [Lioresal] 20 mg PO TID PRN 12/21/15 09/14/21 History DULoxetine HCL [Cymbalta] 30 mg PO QAM 04/17/20 09/14/21 History HYDROcodone/APAP 7.5-325MG [[place] 1 tab PO BID PRN 04/17/20 09/14/21 History 7.5-325] Mirtazapine [Remeron] 30 mg PO HS 04/17/20 09/14/21 History Pantoprazole Sodium [Protonix] 40 mg PO QAM 04/17/20 09/14/21 History Morphine Sulfate [Ms Contin] 15 mg PO Q12HR 01/28/21 09/14/21 History Pregabalin 150 mg PO BID 09/14/21 09/14/21 History QUEtiapine [SEROquel] 50 mg PO HS 09/14/21 09/14/21 History SUMAtriptan succinate [Imitrex] 50 mg PO BID PRN 09/14/21 09/14/21 History Allergies Allergy/AdvReac Type Severity Reaction Status Date / Time No Known Allergies Allergy Verified 01/28/21 12:35 Physical Exam Vitals: Vital Signs Temp Pulse Resp BP Pulse Ox 09/14/21 07:42 97.8 F 63 16 125/72 96 09/14/21 05:17 68 18 100/63 98 09/14/21 02:21 86 18 123/70 99 09/14/21 01:06 16 09/14/21 00:34 97.5 F L 62 18 87/52 94 L Intake and Output 09/13/21 09/14/21 09/14/21 22:59 06:59 14:59 Other: Weight 79.379 kg Results 09/14/21 00:48 09/14/21 00:48 Cardiac Enzymes 09/14/21 09/14/21 09/14/21 Range/Units 00:48 00:48 05:34 AST 22 (17-59) U/L Troponin I <0.012 <0.012 (0.000-0.034) ng/mL 09/14/21 Range/Units 08:36 AST (17-59) U/L Troponin I <0.012 (0.000-0.034) ng/mL Coagulation 09/14/21 Range/Units 00:48 PT 10.1 (9.0-12.0) sec APTT 24.6 (22.0-30.0) sec CBC 09/14/21 Range/Units 00:48 WBC 7.8 (3.8-10.6) k/uL RBC 3.95 L (4.30-5.90) m/uL Hgb 12.7 L (13.0-17.5) gm/dL Hct 38.5 L (39.0-53.0) % Plt Count 291 (150-450) k/uL Comprehensive Metabolic Panel 09/14/21 Range/Units 00:48 Sodium 135 L (137-145) mmol/L Potassium 3.5 (3.5-5.1) mmol/L Chloride 104 (98-107) mmol/L Carbon Dioxide 26 (22-30) mmol/L BUN 11 (9-20) mg/dL Creatinine 0.86 (0.66-1.25) mg/dL Glucose 93 (74-99) mg/dL Calcium 8.7 (8.4-10.2) mg/dL AST 22 (17-59) U/L ALT 12 (4-49) U/L Alkaline Phosphatase 73 (38-126) U/L Total Protein 6.1 L (6.3-8.2) g/dL Albumin 3.4 L (3.5-5.0) g/dL Current Medications Generic Name Dose Route Start Last Admin Trade Name Freq PRN Reason Stop Dose Admin Enoxaparin Sodium 40 mg 09/14/21 09:00 Enoxaparin 40 Mg/0.4 Ml Syringe SQ DAILY CANDIS Sodium Chloride 1,000 mls @ 75 mls/hr 09/14/21 03:30 09/14/21 04:15 Saline 0.9% IV 75 mls/hr .[id number] CANDIS Administration Naloxone HCl 0.2 mg 09/14/21 03:27 Naloxone 0.4 Mg/Ml 1 Ml Vial IV Q2M PRN Opioid Reversal Ondansetron HCl 4 mg 09/14/21 03:27 Ondansetron 4 Mg/2 Ml Vial IVP Q8HR PRN Nausea And Vomiting Intake and Output 09/13/21 09/14/21 09/14/21 22:59 06:59 14:59 Other: Weight 79.379 kg 09/14/21 00:48 09/14/21 00:48
[2021-09-14 11:03] VITALS: TEMP 97.7
[2021-09-14] MEDS ORDERED: HYDROcodone/APAP 7.5-325MG 1 EACH TAB PO PRN (11:34)
[2021-09-14] MEDS ORDERED: PANTOPRAZOLE 40 MG/10 ML VIAL IVP SCH (11:45)
[2021-09-14] MEDS ORDERED: DULoxetine HCL 30 MG CAPSULE.DR PO SCH (11:45)
--- NOTE | 2021-09-14 14:29 | ECHOF ---
Referral Reason:lv function MEASUREMENTS -------- HEIGHT: 185.4 cm WEIGHT: 79.4 kg BP: 125/72 RVIDd: 2.9 cm (< 3.3) IVSd: 0.9 cm (0.6 - 1.1) LVIDd: 5.6 cm (3.9 - 5.3) LVPWd: 1.0 cm (0.6 - 1.1) IVSs: 1.4 cm LVIDs: 4.5 cm LVPWs: 1.5 cm LA Diam: 3.7 cm (2.7 - 3.8) Ao Diam: 3.4 cm (2.0 - 3.7) AV Cusp: 2.6 cm (1.5 - 2.6) MV EXCURSION: 22.907 mm (> 18.000) MV EF SLOPE: 140 mm/s (70 - 150) EPSS: 1.5 cm MV E Gordon: 0.81 m/s MV DecT: 259 ms MV A Gordon: 0.65 m/s MV E/A Ratio: 1.26 FINDINGS -------- Sinus rhythm. This was a technically good study. The left ventricular size is normal. Left ventricular wall thickness is normal. Overall left vent ricular systolic function is mildly impaired with, an EF between 45 - 50 %. The right ventricle is normal in size. The left atrium is normal in size. The right atrium is normal in size. Interatrial and interventricular septum intact. The aortic valve is trileaflet, and appears structurally normal. No aortic stenosis or regurgitation. Mild mitral regurgitation is present. Trace tricuspid regurgitation present. Unable to estimate RVSP due to inadequate TR jet spectral do ppler profile. The pulmonic valve is normal. The aortic root size is normal. Normal inferior vena cava with normal inspiratory collapse consistent with estimated right atrial pre ssure of 5 mmHg. There is no pericardial effusion. CONCLUSIONS -------- 1. The left ventricular size is normal. 2. Left ventricular wall thickness is normal. 3. Overall left ventricular systolic function is mildly impaired with, an EF between 45 - 50 %. 4. Mild mitral regurgitation is present. 5. Trace tricuspid regurgitation present. 6. There is no pericardial effusion. PEDIATRICIAN/MEDICAL DOCTOR: Shila José [facility]
[2021-09-14 15:29] VITALS: BP 114/66; PULSE 71; RESP 18
[2021-09-14] MEDS ORDERED: QUEtiapine 50 MG TAB PO SCH (21:00)
[2021-09-14] MEDS ORDERED: PREGABALIN 75 MG CAP PO SCH (21:00)
[2021-09-14] MEDS ORDERED: MIRTAZAPINE 15 MG TAB PO SCH (21:00)
--- NOTE | 2021-09-16 10:31 | P.HPIM ---
History of Present Illness H&P Date: 09/14/21 Chief Complaint: Chest pain History and Physical and Discharge Summary This is a 56-year-old gentleman admitted with chest pain,chronic back pain and multiple other medical issues, presented to the ER with midsternal chest pain, nonradiating. He denies nausea vomiting, diarrhea. Denies abdominal pain. Denies lightheadedness dizziness or focal deficits. Denies dyspnea, diaphoresis. Chest x-ray reports no active cardiopulmonary disease, no change. EKG reported sinus rhythm with occasional Vital signs stable, maintaining O2 sats in the high 90s on room air. Hemoglobin 12.7, platelets 291, coagulations and chemistry panel is unremarkable., Troponins negative 3. UA negative. Toxicology screen reporting opiates, tricyclics and marijuana. Review of Systems ROS Statement: Those systems with pertinent positive or pertinent negative responses have been documented in the HPI. ROS Other: All systems not noted in ROS Statement are negative. Past Medical History Past Medical History: Eye Disorder, Musculoskeletal Disorder, Neurologic Disorder Additional Past Medical History / Comment(s): Multiple sclerosis USES A CANE TO AMBULATE, falls. has had in past occasional DOUBLE VISION. CHRONIC BACK NECK PAIN. HAD SPINAL STIMULATOR, THEN REMOVED; Migraine headache. Crohn's disease.lt ear [place] History of Any Multi-Drug Resistant Organisms: MRSA Date of last positivie culture/infection: 2014 MDRO Source:: lower back Past Surgical History: Appendectomy, Back Surgery, Bowel Resection, Hernia Repair Additional Past Surgical History / Comment(s): CERVICAL FUSION. SPINAL STIMULATOR implantation, revision and removal. FOREIGN BODY REMOVED RT CHEST WALL. 10/18/2015 wire removed from back. (from stimulator) Past Anesthesia/Blood Transfusion Reactions: Previous Problems w/ Anesthesia Additional Past Anesthesia/Blood Transfusion Reaction / Comment(s): STATES TAKES A LONG TIME TO WAKE UP Past Psychological History: Depression Smoking Status: Current every day smoker Past Alcohol Use History: Occasional Past Drug Use History: Marijuana - Past Family History Father Family Medical History: Cancer, Diabetes Mellitus Additional Family Medical History / Comment(s): CABG-TRIPLE BYPASS, Mother Family Medical History: Cancer, CVA/TIA, Diabetes Mellitus Additional Family Medical History / Comment(s): Stroke Medications and Allergies Home Medications Medication Instructions Recorded Confirmed Type Baclofen [Lioresal] 20 mg PO TID PRN 12/21/15 09/14/21 History DULoxetine HCL [Cymbalta] 30 mg PO QAM 04/17/20 09/14/21 History HYDROcodone/APAP 7.5-325MG [[place] 1 tab PO BID PRN 04/17/20 09/14/21 History 7.5-325] Mirtazapine [Remeron] 30 mg PO HS 04/17/20 09/14/21 History Pantoprazole Sodium [Protonix] 40 mg PO QAM 04/17/20 09/14/21 History Morphine Sulfate [Ms Contin] 15 mg PO Q12HR 01/28/21 09/14/21 History Pregabalin 150 mg PO BID 09/14/21 09/14/21 History QUEtiapine [SEROquel] 50 mg PO HS 09/14/21 09/14/21 History SUMAtriptan succinate [Imitrex] 50 mg PO BID PRN 09/14/21 09/14/21 History Allergies Allergy/AdvReac Type Severity Reaction Status Date / Time No Known Allergies Allergy Verified 01/28/21 12:35 Physical Exam - Exam PHYSICAL EXAM: VITAL SIGNS: As above GENERAL: Sitting up in bed, no acute distress HEENT: Conjunctivae normal. eyes normal. NECK: No JVD. No thyroid enlargement. No LNs CARDIOVASCULAR: S1, S2 regular..No murmur RESPIRATION: Breath sounds diminished in the bases. No rhonchi or crackles. No bronchial breathing. ABDOMEN: Soft, nontender . No guarding. no masses palpable. No ascites, No hepatosplenomegaly.Bowel sounds heard. LEGS: No edema. no swelling PSYCHIATRY: Alert and oriented X3, mood and affect normal. NERVOUS SYSTEM: Cranial N 2-12 grossly normal. Moves all 4 limbs. No focal deficits. Strength and sensation grossly intact.. Skin: Warm and dry, no rash Results CBC & Chem 7: 09/14/21 00:48 09/14/21 00:48 Labs: Microbiology - Last 24 Hours (Table) 09/14/21 01:40 Blood Culture - Preliminary Blood No Growth after 48 hours 09/14/21 00:53 Blood Culture - Preliminary Blood No Growth after 48 hours Assessment and Plan Assessment: Chest pain, atypical as per cardiology. Valvular heart disease Multiple sclerosis Chronic nicotine dependence Chronic back pain, patient has a pain contract with Dr. Carlin Crohn's disease Ongoing Nicotine dependence Marijuana use Plan: Continue on current medication regime ,monitoring and symptomatic treatment. Evaluated and cleared by cardiology, echo pending, ordered by cardiology for discharge. Patient is scheduled for outpatient CT of low back her his pain doctor, this afternoon. Smoking cessation reinforced. Patient will be discharged home today in a stable condition with chiropractic gnosis. Discharge Medication List Baclofen [Lioresal] 20 mg PO TID PRN 12/21/15 [History] DULoxetine HCL [Cymbalta] 30 mg PO QAM 04/17/20 [History] HYDROcodone/APAP 7.5-325MG [[place] 7.5-325] 1 tab PO BID PRN 04/17/20 [History] Mirtazapine [Remeron] 30 mg PO HS 04/17/20 [History] Pantoprazole Sodium [Protonix] 40 mg PO QAM 04/17/20 [History] Morphine Sulfate [Ms Contin] 15 mg PO Q12HR 01/28/21 [History] Pregabalin 150 mg PO BID 09/14/21 [History] QUEtiapine [SEROquel] 50 mg PO HS 09/14/21 [History] SUMAtriptan succinate [Imitrex] 50 mg PO BID PRN 09/14/21 [History] The impression and plan of care has been dictated as directed. : I performed a history and examination of this patient, discussed the same with the dictator. I agree with the dictator's note ,documented as a scribe. Any additional findings or plans will be noted.
== END 2021-09-14 15:28 | disposition home or self-care (01) ==
LOC: EC 00:32 → 6NMEDSUR 02:54
PROVIDERS: ADMIT Family Medicine; ATTEND Family Medicine
DX: R07.2 Precordial pain (principal); F12.90 Cannabis use, unspecified, uncomplicated; I42.8 Other cardiomyopathies; K50.90 Crohn's disease, unspecified, without complications; F17.200 Nicotine dependence, unspecified, uncomplicated; M54.2 Cervicalgia; G35 Multiple sclerosis; R42 Dizziness and giddiness; G89.29 Other chronic pain; I08.1 Rheumatic disorders of both mitral and tricuspid valves; M54.9 Dorsalgia, unspecified; F32.A Depression, unspecified; Z79.82 Long term (current) use of aspirin; Z79.899 Other long term (current) drug therapy; Z71.6 Tobacco abuse counseling; Z86.14 Personal history of Methicillin resistant Staphylococcus aureus infection; Z86.69 Personal history of other diseases of the nervous system and sense organs; Z90.49 Acquired absence of other specified parts of digestive tract; Z98.1 Arthrodesis status; Z82.3 Family history of stroke; Z83.3 Family history of diabetes mellitus; Z80.9 Family history of malignant neoplasm, unspecified; Z82.49 Family history of ischemic heart disease and other diseases of the circulatory system
CPT/HCPCS: 99285; 96361; 96372; 96374; 96375; 36415; 93005; 93306; 85379; 83880; 80053; 82803; 83735; 84484; 85025; 85610; 85730; 81003; 87040; 80306; 80143; 80179; 71045; G0378; G0480; J2310; J1650; C9113; 80320

== ENCOUNTER → 2021-09-14 | Outpatient (CLI) | payer MEDICARE ==
--- NOTE | 2021-09-15 07:55 | CT ---
EXAMINATION TYPE: CT thor lumbar spine wo con DATE OF EXAM: 09/14/2021 COMPARISON: Outside lumbar spine MRI March 24, 2021. Outside lumbar spine x-ray August 26, 2021 HISTORY: CHRONIC BACK PAIN CT DLP: 927.4 mGycm Automated exposure control for dose reduction was used. FINDINGS: CT of the thoracolumbar spine shows 5 lumbar type vertebra. Alignment is straightened. Anterior fusio n plate with ossific fusion at C6-C7 level is identified. Vertebral body heights and disc space heigh ts are maintained in the thoracolumbar spine. Mild multilevel anterior spurring in the lumbar spine. Spinal canal grossly preserved. Review of axial images shows no large disc herniation. There is 1.0 cm right upper pelvic calcificati on on axial image 196 could reflect large phlebolith. Visualized portions of the lungs show mild to m oderate emphysematous change greatest in the upper lobes with at least 1 calcified pleural plaque pos teriorly right upper lung axial image 35. Correlate clinically for prior asbestos exposure. IMPRESSION: As above.
== END | disposition home or self-care (01) ==
LOC: RADCTMAIN 17:37
PROVIDERS: ATTEND Orthopaedic Surgery
DX: M54.50 Low back pain, unspecified (principal); M54.6 Pain in thoracic spine
CPT/HCPCS: 72128; 72131

== ENCOUNTER 2021-09-17 12:14 | Emergency (ER) | payer MEDICARE ==
[2021-09-17 12:40] VITALS: RESP 18
[2021-09-17] MEDS ORDERED: SODIUM CHLORIDE 0.9% 1,000 ML IV STA (13:02)
--- NOTE | 2021-09-17 13:31 | XR ---
EXAMINATION TYPE: XR chest 2V DATE OF EXAM: 09/17/2021 COMPARISON: Chest x-ray 3 days ago HISTORY: Left-sided chest pain. TECHNIQUE: Frontal and lateral views of the chest are obtained. FINDINGS: There is mild chronic parenchymal change without suspicious new focal air space opacity, p leural effusion, or pneumothorax seen. The cardiac silhouette size is stable and upper limits of nor mal. Anterior fusion plate in the cervical spine is partially imaged. IMPRESSION: No acute process. No significant change from prior.
--- NOTE | 2021-09-17 13:37 | CT ---
EXAMINATION TYPE: CT brain cspine wo con DATE OF EXAM: 09/17/2021 COMPARISON: CT brain and cervical spine December 22, 2020 HISTORY: Lt hand swelling and pain. Headache and hand numbness. CT DLP: 1349.9 mGycm. Automated Exposure Control for Dose Reduction was Utilized. TECHNIQUE: CT scan of the head and cervical spine are performed without contrast. FINDINGS: There is no acute intracranial hemorrhage, mass effect, or midline shift identified. The ventricles and sulci are stable and within normal limits in size. Lema-white matter differentiation is maintained. The globes are intact and the visualized sinuses are clear. Cervical spine is visualized in its entirety from C1 through upper thoracic levels and demonstrates s traightened alignment without evidence of acute fracture or dislocation. Prevertebral soft tissue ap pears within normal limits. The C1-C2 articulation is within normal limits on the coronal images. T here is artificial disc material and anterior fusion plate at C6-C7 level redemonstrated. There is a large anterior spurs at C5-C6 level redemonstrated. Anterior projection superior C6 and C7 levels red emonstrated into the anterior thecal sac. Mild calcified plaque right carotid bulb. Lung apices show emphysematous change without pneumothorax. Spinal canal grossly preserved. IMPRESSION: 1. There is no acute fracture or dislocation evident in the cervical spine. 2. No acute intracranial hemorrhage or midline shift is seen. No significant change from prior CT.
[2021-09-17 13:46] LABS: Basophils # (A) 0.1 k/uL (0-0.2); Basophils % (A) 1 %; Eosinophils # (A) 0.1 k/uL (0-0.7); Eosinophils % (A) 2 %; HCT 47.7 % (39.0-53.0); Lymphocytes # (A) 1.6 k/uL (1.0-4.8); Lymphocytes % (A) 21 %; MCHC 31.5 g/dL (31.0-37.0); MCV 98.4 fL (80.0-100.0); Mean Platelet Volume 8.5; Monocytes # (A) 0.5 k/uL (0-1.0); Monocytes % (A) 6 %; Neutrophils # (A) 5.4 k/uL (1.3-7.7); Neutrophils % (A) 69 %; Platelet Count 313 k/uL (150-450); RBC 4.84 m/uL (4.30-5.90); RDW 12.5 % (11.5-15.5); WBC 7.8 k/uL (3.8-10.6)
[2021-09-17 14:10] LABS: INR 0.9 (<1.2); Partial Thromboplastin Time 22.1 sec (22.0-30.0); Prothrombin Time 9.8 sec (9.0-12.0)
[2021-09-17 14:18] LABS: ALT 14 U/L (4-49); AST 25 U/L (17-59); African American GFR (CKD) >90 (>60 ml/min/1.73 sqM); Albumin 3.9 g/dL (3.5-5.0); Alkaline Phosphatase 84 U/L (38-126); Anion Gap 5 mmol/L; Blood Urea Nitrogen 8 mg/dL (9-20); Calcium 9.2 mg/dL (8.4-10.2); Carbon Dioxide 26 mmol/L (22-30); Chloride 105 mmol/L (98-107); Glucose 99 mg/dL (74-99); Magnesium 1.9 mg/dL (1.6-2.3); Non-African American GFR(CKD) >90 (>60 ml/min/1.73 sqM); Potassium 4.2 mmol/L (3.5-5.1); Sodium 136 mmol/L (137-145); Total Bilirubin 0.6 mg/dL (0.2-1.3)
--- NOTE | 2021-09-17 14:30 | US ---
EXAMINATION TYPE: US venous doppler duplex UE LT DATE OF EXAM: 09/17/2021 COMPARISON: NONE CLINICAL HISTORY: evaluate for dvt. pain SIDE PERFORMED: left Left Arm: Negative for DVT Grayscale, color doppler, spectral doppler imaging performed of the deep veins of the left upper extr emity. There is normal flow, compressibility and vascular waveforms. IMPRESSION: No ultrasound evidence for acute deep or superficial venous thrombosis in the left upper extremity.
--- NOTE | 2021-09-17 14:33 | ED ---
General Adult HPI - General Chief complaint: Neuro Symptoms/Deficit Stated complaint: left arm pain, hand swelling Time Seen by Provider: 09/17/21 12:50 Source: patient, RN notes reviewed, old records reviewed Mode of arrival: wheelchair Limitations: no limitations - History of Present Illness Initial comments: Patient is a 56-year-old male with past medical history remarkable for neurological disorders, MS wheezes a cane to ambulate presents emergency Department complaining of left hand swelling as well as left bicep pain. Patient states her this morning when he awoke. Denies any other acute complaints at this time including acute weakness, numbness. Is chronically weak with pain in the right lower extremity secondary to right hip surgery. Denies any blurry vision. Patient was initially seen in triage and brought back for "neurological complaints" he states that when his hand is more swollen this morning, he was having a difficult time with strength in the hand. States that is since resolved. Patient currently is asymptomatic except for a mild amount of pain in the left bicep. Denies any falls or trauma. Triage was concerning f or possible strokelike symptoms. States his symptoms were focal in the hand secondary to swelling as well as pain in his left bicep. No other acute complaints at this time. Denies being on blood thinners.Patient is otherwise at his baseline at this time. Patient denies knowing if he slept on his left arm. He states last night he had no symptoms. States his symptoms are pretty much resolved at this point. - Related Data Home Medications Medication Instructions Recorded Confirmed Baclofen [Lioresal] 20 mg PO TID PRN 12/21/15 09/17/21 DULoxetine HCL [Cymbalta] 30 mg PO DAILY 04/17/20 09/17/21 HYDROcodone/APAP 7.5-325MG [[place] 1 tab PO BID PRN 04/17/20 09/17/21 7.5-325] Mirtazapine [Remeron] 30 mg PO HS 04/17/20 09/17/21 Pantoprazole Sodium [Protonix] 40 mg PO DAILY 04/17/20 09/17/21 Morphine Sulfate [Ms Contin] 15 mg PO Q12HR 01/28/21 09/17/21 Pregabalin 150 mg PO BID 09/14/21 09/17/21 QUEtiapine [SEROquel] 50 mg PO HS 09/14/21 09/14/21 SUMAtriptan succinate [Imitrex] 50 mg PO BID PRN 09/14/21 09/14/21 rOPINIRole HCL [Requip] 1 mg PO HS 09/17/21 09/17/21 Allergies Allergy/AdvReac Type Severity Reaction Status Date / Time No Known Allergies Allergy Verified 09/17/21 14:26 Review of Systems ROS Statement: Those systems with pertinent positive or pertinent negative responses have been documented in the HPI. Review of Systems: CONST: Denies fever EYES: Denies blurry vision ENT: Denies nasal congestion C/V: Denies Chest pain RESP: Denies shortness of breath GI: Denies abdominal pain : Denies dysuria SKIN: Denies rash. MSK: Endorses joint pain. NEURO: Denies headache ROS Other: All systems not noted in ROS Statement are negative. Past Medical History Past Medical History: Eye Disorder, Musculoskeletal Disorder, Neurologic Disorder Additional Past Medical History / Comment(s): Multiple sclerosis USES A CANE TO AMBULATE, falls. has had in past occasional DOUBLE VISION. CHRONIC BACK NECK PAIN. HAD SPINAL STIMULATOR, THEN REMOVED; Migraine headache. Crohn's disease.lt ear [place] History of Any Multi-Drug Resistant Organisms: MRSA Date of last positivie culture/infection: 2014 MDRO Source:: lower back Past Surgical History: Appendectomy, Back Surgery, Bowel Resection, Hernia Repair Additional Past Surgical History / Comment(s): CERVICAL FUSION. SPINAL STIMULATOR implantation, revision and removal. FOREIGN BODY REMOVED RT CHEST WALL. 10/18/2015 wire removed from back. (from stimulator) Past Anesthesia/Blood Transfusion Reactions: Previous Problems w/ Anesthesia Additional Past Anesthesia/Blood Transfusion Reaction / Comment(s): STATES TAKES A LONG TIME TO WAKE UP Past Psychological History: Depression Smoking Status: Current every day smoker Past Alcohol Use History: Occasional Past Drug Use History: Marijuana - Past Family History Father Family Medical History: Cancer, Diabetes Mellitus Additional Family Medical History / Comment(s): CABG-TRIPLE BYPASS, Mother Family Medical History: Cancer, CVA/TIA, Diabetes Mellitus Additional Family Medical History / Comment(s): Stroke General Exam - General Exam Comments Initial Comments: General: Appears in no acute distress. HEAD: Normal with no signs of head trauma. EYES: PERRLA, EOMI, conjunctiva normal, no discharge. Pupils are 3 mm and equal bilaterally. ENT: Hearing grossly intact, normal oropharynx. RESPIRATORY: Clear breath sounds bilaterally. No wheezes, rales, or rhonchi. C/V: Regular rate and rhythm. S1 and S2 auscultated, no edema, peripheral pulses 2+ and intact throughout ABD: Abd is soft, nontender, nondistended EXT: Normal range of motion, no obvious deformity. Patient's left hand is minimally swollen, but has good strength. No deficits neurovascularly. Patient does have some mild tenderness palpation over the body of the left biceps muscle with no active swelling or discoloration.Mild tenderness of the left bicep muscle with flexion as well as palpation. Normal range of motion. SKIN: No rashes or lesions observed on exposed skin. NEURO: Alert and oriented 4. Cranial nerves II through XII are intact. No acute focal sensory strength deficits. NIH is 0. Cerebellar function is intact as evident by normal finger to nose and heel to brandt testing. GCS is 15. Patient indicates at baseline with a walker. Limitations: no limitations Course Vital Signs 09/17/21 09/17/21 12:35 12:56 Temperature 97.3 F L Pulse Rate 71 68 Respiratory 18 18 Rate Blood Pressure 101/64 90/64 O2 Sat by Pulse 99 Oximetry Medical Decision Making - Medical Decision Making Based on the patient's presentation and physical exam, I believe that the patient does not appear to be suffering an acute CVA. Had hand swelling earlier as well as left bicep muscle pain that has since resolved. His no active neurovascular complaints at this time. We will obtain a screening EKG. Patient doesn't history of degenerative disc disease and we will obtain a CT brain as well as C-spine with him for radiculopathy any obvious intracranial changes. Patient was in agreement this plan. We will also obtain an ultrasound of the left upper extremity to rule out any form of DVT. Basic labs will be obtained. Patient was in agreement this plan. His no other acute complaint at this time. EKG revealed no acute cardiopulmonary process. No acute ischemic changes. Laboratory studies are within normal limits. Chest x-ray revealed no acute cardiopulmonary process. CT brain and C-spine revealed no acute intracranial process and no acute injury of the cervical spine. Patient's venous Doppler was unremarkable. No signs of DVT or superficial venous thrombosis in the left upper extremity. On reevaluation, patient remains asymptomatic. I discussed the findings with the patient. I believe it is safer to be discharged home at this time. He was in agreement this plan. I recommended elevation of the left arm, as well as close monitoring of his symptoms. If they return he can always return to the emergency department. Patient was in agreement this plan. Vitals signs remained stable and within normal limits status in the emergency department. I instructed the patient to follow up with their PCP in the next 3 days. I explained that the patient should return to the emergency department if they experience any worsening symptoms. Strict return precautions were discussed with the patient. The patient expressed understanding of these instructions. I answered all questions that the patient had. The patient was discharged home in good condition with their prescriptions and follow up information. - Lab Data Result diagrams: 09/17/21 13:05 09/17/21 13:05 Lab Results 09/17/21 09/17/21 09/17/21 Range/Units 13:05 13:05 13:05 WBC 7.8 (3.8-10.6) k/uL RBC 4.84 (4.30-5.90) m/uL Hgb 15.0 (13.0-17.5) gm/dL Hct 47.7 (39.0-53.0) % MCV 98.4 (80.0-100.0) fL MCH 31.0 (25.0-35.0) pg MCHC 31.5 (31.0-37.0) g/dL RDW 12.5 (11.5-15.5) % Plt Count 313 (150-450) k/uL MPV 8.5 Neutrophils % 69 % Lymphocytes % 21 % Monocytes % 6 % Eosinophils % 2 % Basophils % 1 % Neutrophils # 5.4 (1.3-7.7) k/uL Lymphocytes # 1.6 (1.0-4.8) k/uL Monocytes # 0.5 (0-1.0) k/uL Eosinophils # 0.1 (0-0.7) k/uL Basophils # 0.1 (0-0.2) k/uL PT 9.8 (9.0-12.0) sec INR 0.9 (<1.2) APTT 22.1 (22.0-30.0) sec Sodium 136 L (137-145) mmol/L Potassium 4.2 (3.5-5.1) mmol/L Chloride 105 (98-107) mmol/L Carbon Dioxide 26 (22-30) mmol/L Anion Gap 5 mmol/L BUN 8 L (9-20) mg/dL Creatinine 0.74 (0.66-1.25) mg/dL Est GFR (CKD-EPI)AfAm >90 (>60 ml/min/1.73 sqM) Est GFR (CKD-EPI)NonAf >90 (>60 ml/min/1.73 sqM) Glucose 99 (74-99) mg/dL Calcium 9.2 (8.4-10.2) mg/dL Magnesium 1.9 (1.6-2.3) mg/dL Total Bilirubin 0.6 (0.2-1.3) mg/dL AST 25 (17-59) U/L ALT 14 (4-49) U/L Alkaline Phosphatase 84 (38-126) U/L Total Protein 7.0 (6.3-8.2) g/dL Albumin 3.9 (3.5-5.0) g/dL - EKG Data -: EKG Interpreted by Me EKG Comments: 12-lead Electrocardiogram Interpretation Note EKG was reviewed and interpreted by myself. 12-lead ECG performed at 1249 is interpreted by me as revealing normal sinus rhythm at a rate of at 67 beats per minute.. [place] is normal. ND interval is 129 ms, QRS durations 102 ms, QTc is 400 ms. PVC is present.. There were no ST or T wave abnormalities to suggest myocardial ischemia or injury. R wave progression across the precordium was satisfactory. By my interpretation this EKG is non-diagnostic for acute ischemia. Disposition Clinical Impression: Swelling of left hand, Strain of left biceps tendon Disposition: HOME SELF-CARE Condition: Good Is patient prescribed a controlled substance at d/c from ED?: No Referrals: Mack Fox DO [Primary Care Provider] - 1-2 days
[2021-09-17 14:53] VITALS: BP 110/66; PULSE 88; TEMP 98.4
== END 2021-09-17 14:52 | disposition home or self-care (01) ==
LOC: EC 12:14
DX: S46.212A Strain of muscle, fascia and tendon of other parts of biceps, left arm, initial encounter (principal); F17.200 Nicotine dependence, unspecified, uncomplicated; X58.XXXA Exposure to other specified factors, initial encounter
CPT/HCPCS: 36415; 70450; 71046; 72125; 80053; 83735; 85025; 85610; 85730; 93005; 96360; 99284

== ENCOUNTER 2021-11-07 13:04 | Emergency (ER) | payer MEDICARE ==
--- NOTE | 2021-11-07 14:06 | XR ---
EXAMINATION TYPE: XR ribs LT w pa chest xray DATE OF EXAM: 11/07/2021 CLINICAL HISTORY: Chest and left-sided rib pain after fall injury. TECHNIQUE: Single frontal view of the chest is obtained. A frontal and oblique images of the left-reji ed ribs. COMPARISON: Chest x-ray September 17, 2021 and older x-rays. Chest CT November 23, 2015 FINDINGS: There is background chronic emphysematous change without suspicious new focal air space op acity, pleural effusion, or pneumothorax seen. Rounded calcifications medial right lung apex and satnam pheral of the upper lungs corresponding to calcified pleural plaques on 2016 CT. Correlate for histor y of asbestos exposure. The cardiac silhouette size is within normal limits. Anterior fusion plate ce rvicothoracic junction is redemonstrated. Dedicated images of the left-sided ribs show no acute displaced fractures. Overlying soft tissue is u nremarkable. IMPRESSION: 1. Chronic changes without acute pulmonary process. 2. No acute displaced left-sided rib fractures.
--- NOTE | 2021-11-07 14:09 | XR ---
EXAMINATION TYPE: XR hand complete RT DATE OF EXAM: 11/07/2021 CLINICAL HISTORY: Fall injury with pain TECHNIQUE: Frontal, lateral and oblique images of the right hand are obtained. COMPARISON: Prior right hand x-ray March 16, 2018 FINDINGS: There is acute comminuted slightly displaced fracture proximal metaphysis fourth metacarpa l. The joint spaces in the right hand appear within normal limits. The overlying soft tissue appears unremarkable. IMPRESSION: There is acute comminuted slightly displaced fracture proximal metaphysis fourth metacar pal.
[2021-11-07] MEDS ORDERED: MORPHINE SULFATE 4 MG/ML SYRINGE IVP STA (16:19)
[2021-11-07] MEDS ORDERED: MORPHINE SULFATE 2 MG/ML SYRINGE IVP ONE (16:20)
--- NOTE | 2021-11-07 17:06 | ED ---
Fall HPI - General Chief Complaint: Fall Stated Complaint: fall Time Seen by Provider: 11/07/21 16:09 Source: patient Mode of arrival: ambulatory - History of Present Illness Initial Comments: Patient is a 56-year-old male who presents for evaluation of fall. Patient states he was walking in his yard over before meals in the area when he fell and landed on his right hand and left ribs. Patient did not hit his head. He is not on blood thinners. Patient endorses pain over the back of his right hand as well as left rib area. No numbness or tingling. No chest pain or shortness of breath. - Related Data Home Medications Medication Instructions Recorded Confirmed Baclofen [Lioresal] 20 mg PO TID PRN 12/21/15 09/17/21 DULoxetine HCL [Cymbalta] 30 mg PO DAILY 04/17/20 09/17/21 HYDROcodone/APAP 7.5-325MG [[place] 1 tab PO BID PRN 04/17/20 09/17/21 7.5-325] Mirtazapine [Remeron] 30 mg PO HS 04/17/20 09/17/21 Pantoprazole Sodium [Protonix] 40 mg PO DAILY 04/17/20 09/17/21 Morphine Sulfate [Ms Contin] 15 mg PO Q12HR 01/28/21 09/17/21 Pregabalin 150 mg PO BID 09/14/21 09/17/21 QUEtiapine [SEROquel] 50 mg PO HS 09/14/21 09/17/21 SUMAtriptan succinate [Imitrex] 50 mg PO BID PRN 09/14/21 09/17/21 rOPINIRole HCL [Requip] 1 mg PO HS 09/17/21 09/17/21 Allergies Allergy/AdvReac Type Severity Reaction Status Date / Time No Known Allergies Allergy Verified 11/07/21 13:32 Review of Systems ROS Statement: Those systems with pertinent positive or pertinent negative responses have been documented in the HPI. ROS Other: All systems not noted in ROS Statement are negative. Past Medical History Past Medical History: Eye Disorder, Musculoskeletal Disorder, Neurologic Disorder Additional Past Medical History / Comment(s): Multiple sclerosis USES A CANE TO AMBULATE, falls. has had in past occasional DOUBLE VISION. CHRONIC BACK NECK PAIN. HAD SPINAL STIMULATOR, THEN REMOVED; Migraine headache. Crohn's disease.lt ear [place] History of Any Multi-Drug Resistant Organisms: MRSA Date of last positivie culture/infection: 2014 MDRO Source:: lower back Past Surgical History: Appendectomy, Back Surgery, Bowel Resection, Hernia Repair Additional Past Surgical History / Comment(s): CERVICAL FUSION. SPINAL STIMULATOR implantation, revision and removal. FOREIGN BODY REMOVED RT CHEST WALL. 10/18/2015 wire removed from back. (from stimulator) Past Anesthesia/Blood Transfusion Reactions: Previous Problems w/ Anesthesia Additional Past Anesthesia/Blood Transfusion Reaction / Comment(s): STATES TAKES A LONG TIME TO WAKE UP Past Psychological History: Depression Smoking Status: Current every day smoker Past Alcohol Use History: Occasional Past Drug Use History: Marijuana - Past Family History Father Family Medical History: Cancer, Diabetes Mellitus Additional Family Medical History / Comment(s): CABG-TRIPLE BYPASS, Mother Family Medical History: Cancer, CVA/TIA, Diabetes Mellitus Additional Family Medical History / Comment(s): Stroke General Exam Limitations: no limitations General appearance: alert, in no apparent distress Head exam: Present: atraumatic, normocephalic, normal inspection Eye exam: Present: normal appearance, PERRL, EOMI. Absent: scleral icterus, conjunctival injection, periorbital swelling Neck exam: Present: normal inspection, full ROM Respiratory exam: Present: normal lung sounds bilaterally. Absent: respiratory distress, wheezes, rales, rhonchi, stridor Cardiovascular Exam: Present: regular rate, normal rhythm, normal heart sounds. Absent: systolic murmur, diastolic murmur, rubs, gallop, clicks GI/Abdominal exam: Present: soft, normal bowel sounds. Absent: distended, tenderness, guarding, rebound, rigid Right Hand Wrist exam: Present: full ROM, tenderness (dorsal right hand in the fourth and fifth metacarpal region. No snuffbox tenderness), swelling (Minimal swelling over the dorsal right hand in the fourth and fifth metacarpal region). Absent: normal inspection, erythema Neuro motor exam: Present: wrist extension intact, thumb opposition intact, thumb IP flexion intact, thumb adduction intact, fingers 2-5 abduction intact, other Neurosensory exam: Present: ulnar nerve intact, median nerve intact Vascular: Present: normal capillary refill, radial pulse, brachial pulse, ulnar pulse. Absent: vascular compromise, Pallo Back exam: Present: normal inspection, full ROM, tenderness (Left lower rib region) Neurological exam: Present: alert, oriented X3, CN II-XII intact Psychiatric exam: Present: normal affect, normal mood Skin exam: Present: warm, dry, intact, normal color. Absent: rash Course Vital Signs 11/07/21 11/07/21 13:28 17:43 Temperature 98.2 F 97.8 F Pulse Rate 97 78 Respiratory 18 16 Rate Blood Pressure 115/70 147/87 O2 Sat by Pulse 97 96 Oximetry Medical Decision Making - Medical Decision Making This is a 56-year-old male who presents with right hand and left rib pain after fall today. Thorough history and examination were performed. Patient did not hit his head. He is not on blood thinners. Patient endorses pain over the fourth and fifth metacarpal region of the right hand. He is neurovascularly intact. It is minimally swollen. No numbness or tingling. Full range of motion. X-ray shows an acute comminuted slightly displaced fracture at the proximal metaphysis of the fourth metacarpal. Patient was placed in a volar forearm splint. Patient also endorses lower left rib pain. There is no overlying ecchymosis or deformity. Lungs are clear to auscultation bilaterally. No shortness of breath. Chest x-ray is negative for acute process including rib fracture. Because patient reports severe rib pain incentive spirometry was ordered for pneumonia prophylaxis.. Respiratory did come to the emergency department to educate patient on how to use. Pain controlled morphine. Patient states he sees a pain specialist and cannot be sent home with pain medication. Patient will be discharged with instruction to continue his previously prescribed pain medication at home and to continue incentive spirometry. He was referred to oncology rep specialist for further evaluation and management. Return parameters discussed. Patient verbalizes understanding and is agreeable to this plan. Dr. Davis is my attending. Disposition Clinical Impression: Metacarpal bone fracture, Fall, Rib pain Disposition: HOME SELF-CARE Condition: Good Instructions (If sedation given, give patient instructions): Fall Prevention for Older Adults (ED), Boxer Fracture (ED) Additional Instructions: Please keep splint clean and dry. Follow-up with oncology rep specialist in 1-2 days. Take your already prescribed pain medication at home for pain. Use spirometer as directed to help move air through your lungs prevent pneumonia. Return to the emergency department if you experience new, concerning, or worsening symptoms. Is patient prescribed a controlled substance at d/c from ED?: No Referrals: Mack Fox DO [Primary Care Provider] - 1-2 days Joel Ornelas PAC [PHYSICIAN SOLUTION [employer]KER] - 1-2 days Time of Disposition: 17:05
[2021-11-07 17:44] VITALS: BP 147/87; PULSE 78; RESP 16; TEMP 97.8
== END 2021-11-07 17:43 | disposition home or self-care (01) ==
LOC: EC 13:04
DX: S62.304A Unspecified fracture of fourth metacarpal bone, right hand, initial encounter for closed fracture (principal); F17.200 Nicotine dependence, unspecified, uncomplicated; R07.81 Pleurodynia; W19.XXXA Unspecified fall, initial encounter; Y93.01 Activity, walking, marching and hiking
CPT/HCPCS: 71101; 73130; 99283; 96374; 29125; J2270

== ENCOUNTER → 2021-12-09 | Outpatient (CLI) | payer MEDICARE ==
--- NOTE | 2021-12-11 13:44 | US ---
EXAMINATION TYPE: US carotid duplex BILAT DATE OF EXAM: 12/09/2021 COMPARISON: 06/14/2011 CLINICAL HISTORY: 56-year-old male R55 Syncope. TECHNIQUE: Carotid duplex ultrasound examination. Indirect Doppler criteria was utilized. EXAM MEASUREMENTS: RIGHT: Peak Systolic Velocity (PSV) cm/sec ----- Right CCA: 125.3 ----- Right ICA: 152.9 ----- Right ECA: 160 ICA/CCA ratio: 1.2 RIGHT: End Diastole cm/sec ----- Right CCA: 34.7 ----- Right ICA: 50.4 ----- Right ECA: 24.8 LEFT: Peak Systolic Velocity (PSV) cm/sec ----- Left CCA: 150.9 ----- Left ICA: 147 ----- Left ECA: 131.2 ICA/CCA ratio: 1.0 LEFT: End Diastole cm/sec ----- Left CCA: 50.4 ----- Left ICA: 40.6 ----- Left ECA: 24.8 VERTEBRALS (direction of flow): Right Vertebral: Antegrade Left Vertebral: Antegrade Rhythm: Normal Mild atherosclerotic calcifications at the right greater than left bifurcations. Increased from 2010. IMPRESSION: Measurements suggest that there may be moderate (50-69%) stenoses at the proximal ICA on both sides. However, sánchez scale images do not suggest a correspondingly significant narrowing to account for thes e elevated measurements. Findings may be on the basis of turbulent flow. Recommend short interval fol low-up ultrasound to reassess. Criteria for Assigning % of Stenosis / Diameter reduction (Estimation based on the indirect measurements of the internal carotid artery velocities (ICA PSV). 1. Normal (no stenosis)=ICA PSV < 125 cm/s: ratio < 2.0: ICA EDV<40 cm/s. 2. Less than 50% stenosis=ICA PSV < 125 cm/s: ratio < 2.0: ICA EDV<40 cm/s. 3. 50 to 69% stenosis=ICA PSV of 125 to 230 cm/s: ration 2.0 ? 4.0: ICA EDV 40-100 cm/s. 4. Greater than 70% stenosis to near occlusion= ICA PSV > 230 cm/s: ratio > 4.0: ICA EDV > 100 cm/s. 5. Near occlusion= ICA PSV velocities may be low or undetectable: variable ratio and ICA EDV. 6. Total occlusion=unable to detect flow.
== END | disposition home or self-care (01) ==
LOC: RADUSWWP 16:08
PROVIDERS: ATTEND Family Medicine
DX: R55 Syncope and collapse (principal)
CPT/HCPCS: 93880

== ENCOUNTER 2021-12-22 06:54 | Inpatient (IN) | payer MEDICARE ==
[2021-12-22] MEDS ORDERED: SODIUM CHLORIDE 0.9% 1,000 ML IV STA (07:11)
[2021-12-22] MEDS ORDERED: DEXAMETHASONE SOD PHOSPHATE 10 MG/ML 1 ML VIAL IVP STA (07:12)
--- NOTE | 2021-12-22 07:20 | ED ---
General Adult HPI - General Chief complaint: Shortness of Breath Stated complaint: ALONDRA Time Seen by Provider: 12/22/21 07:08 Source: patient, EMS, RN notes reviewed, old records reviewed Mode of arrival: EMS - History of Present Illness Initial comments: 56-year-old male, alert and oriented 4, presents to the emergency room with complaints of 3 days of cough and increased mucus production with difficulty breathing. Patient states that his granddaughter was over and is positive for coronavirus. He has not been vaccinated. He does have a history of COPD, multiple sclerosis Crohn's and anemia. He does have chronic right hip pain which she states takes morphine 4 at home. He states pain in his hip is 8 out of 10. Denies any chest pain. Denies any fevers. Oxygen saturation is 91% on room air. He does not use oxygen at home. -: days(s) (3) Location: right, lower extremity (hip) Severity scale (1-10): 8 Quality: constant Consistency: constant Improves with: none Associated Symptoms: cough, shortness of breath Treatments Prior to Arrival: none - Related Data Home Medications Medication Instructions Recorded Confirmed Baclofen [Lioresal] 20 mg PO BID 12/21/15 12/22/21 HYDROcodone/APAP 7.5-325MG [[place] 1 tab PO BID PRN 04/17/20 12/22/21 7.5-325] Mirtazapine [Remeron] 30 mg PO HS 04/17/20 12/22/21 Pantoprazole Sodium [Protonix] 40 mg PO DAILY 04/17/20 12/22/21 Morphine Sulfate [Ms Contin] 15 mg PO Q12HR 01/28/21 12/22/21 Pregabalin 150 mg PO BID 09/14/21 12/22/21 QUEtiapine [SEROquel] 50 mg PO HS 09/14/21 12/22/21 SUMAtriptan succinate [Imitrex] 50 mg PO BID PRN 09/14/21 12/22/21 rOPINIRole HCL [Requip] 1 mg PO HS 09/17/21 12/22/21 DULoxetine HCL [Cymbalta] 20 mg PO BID 12/22/21 12/22/21 Allergies Allergy/AdvReac Type Severity Reaction Status Date / Time No Known Allergies Allergy Verified 12/22/21 09:07 Review of Systems ROS Statement: Those systems with pertinent positive or pertinent negative responses have been documented in the HPI. ROS Other: All systems not noted in ROS Statement are negative. Past Medical History Past Medical History: COPD, Eye Disorder, Musculoskeletal Disorder, Neurologic Disorder Additional Past Medical History / Comment(s): Multiple sclerosis USES A CANE TO AMBULATE, falls. has had in past occasional DOUBLE VISION. CHRONIC BACK NECK PAIN. HAD SPINAL STIMULATOR, THEN REMOVED; Migraine headache. Crohn's disease.lt ear [place] History of Any Multi-Drug Resistant Organisms: MRSA Date of last positivie culture/infection: 2014 MDRO Source:: lower back Past Surgical History: Appendectomy, Back Surgery, Bowel Resection, Hernia Repair Additional Past Surgical History / Comment(s): CERVICAL FUSION. SPINAL STIMULATOR implantation, revision and removal. FOREIGN BODY REMOVED RT CHEST WALL. 10/18/2015 wire removed from back. (from stimulator) Past Anesthesia/Blood Transfusion Reactions: Previous Problems w/ Anesthesia Additional Past Anesthesia/Blood Transfusion Reaction / Comment(s): STATES TAKES A LONG TIME TO WAKE UP Past Psychological History: Depression Smoking Status: Current every day smoker Past Alcohol Use History: Occasional Past Drug Use History: Marijuana - Past Family History Father Family Medical History: Cancer, Diabetes Mellitus Additional Family Medical History / Comment(s): CABG-TRIPLE BYPASS, Mother Family Medical History: Cancer, CVA/TIA, Diabetes Mellitus Additional Family Medical History / Comment(s): Stroke General Exam Limitations: no limitations General appearance: alert, in no apparent distress Head exam: Present: atraumatic ENT exam: Present: mucous membranes dry, other (Erythematous oropharynx) Expanded Throat exam: negative: tonsillomegaly, tonsillar exudate, R peritonsillar mass, L peritonsillar mass Neck exam: Present: normal inspection. Absent: tenderness, meningismus, lymphadenopathy Respiratory exam: Present: wheezes Cardiovascular Exam: Present: regular rate GI/Abdominal exam: Present: soft. Absent: distended, tenderness, rigid Extremities exam: Present: normal capillary refill. Absent: pedal edema Back exam: Present: normal inspection. Absent: tenderness, CVA tenderness (R), CVA tenderness (L), rash noted Neurological exam: Present: alert, oriented X3 Psychiatric exam: Present: normal affect, normal mood Skin exam: Present: warm, dry, normal color. Absent: cyanosis, diaphoretic, pallor Course Vital Signs 12/22/21 12/22/21 12/22/21 06:56 07:00 08:00 Temperature 97.5 F L 97.4 F L Pulse Rate 95 64 64 Respiratory 20 18 18 Rate Blood Pressure 116/77 106/75 O2 Sat by Pulse 92 L 93 L 93 L Oximetry 12/22/21 12/22/21 12/22/21 09:00 10:00 11:00 Temperature Pulse Rate 66 72 67 Respiratory 18 16 16 Rate Blood Pressure 113/70 113/70 121/83 O2 Sat by Pulse 96 94 L 96 Oximetry 12/22/21 12/22/21 11:30 13:01 Temperature Pulse Rate 62 Respiratory 18 Rate Blood Pressure 116/81 O2 Sat by Pulse 92 L 94 L Oximetry EKG Findings - EKG Comments: EKG Findings:: Repeat EKG done at 1327 shows a ventricular rate of 72, LA interval 0.154, QRS 0.97, QTC 0.409. no ST elevation; normal axis - EKG Results: EKG: sinus rhythm (Ventricular rate 72, LA interval 0.158, QRS 0.96, QTC 0.421; normal axis), not changed from: (09/17/21) Medical Decision Making - Medical Decision Making 56-year-old male presents with 3 days of cough and increased mucus production with exposure to coronavirus. Pulse ox is 89% on room air. Lung sounds diminished throughout. Covid test was negative. Labs show leukocytosis with a left shift. Initial troponin was negative at 0.030. Chest x-ray shows a right lower lobe pneumonia. D-dimer was elevated at 0.62. CT angiogram of the chest was performed showing almost complete collapse of the middle lobe and subsegmental atelectasis. No evidence of pulmonary embolism. Patient was admitted to the hospital with hypoxia, COPD and pneumonia. IV antibiotics started. While waiting for bed assignment, repeat troponin was done and resulted at 0.156. Repeat EKG shows sinus rhythm EKG changes no ST elevation. Patient was started on heparin drip. Results were discussed with the patient and he is agreeable to being admitted to the hospital. Case discussed with Dr. Jerry. - Lab Data Result diagrams: 12/22/21 07:41 12/22/21 07:41 Lab Results 12/22/21 12/22/21 12/22/21 Range/Units 07:41 07:41 07:41 WBC 14.9 H (3.8-10.6) k/uL RBC 4.19 L (4.30-5.90) m/uL Hgb 13.1 (13.0-17.5) gm/dL Hct 41.2 (39.0-53.0) % MCV 98.4 (80.0-100.0) fL MCH 31.2 (25.0-35.0) pg MCHC 31.8 (31.0-37.0) g/dL RDW 12.5 (11.5-15.5) % Plt Count 273 (150-450) k/uL MPV 8.4 Neutrophils % 80 % Lymphocytes % 13 % Monocytes % 6 % Eosinophils % 1 % Basophils % 1 % Neutrophils # 11.9 H (1.3-7.7) k/uL Lymphocytes # 1.9 (1.0-4.8) k/uL Monocytes # 0.8 (0-1.0) k/uL Eosinophils # 0.1 (0-0.7) k/uL Basophils # 0.1 (0-0.2) k/uL PT 9.6 (9.0-12.0) sec INR 0.9 (<1.2) APTT 23.9 (22.0-30.0) sec D-Dimer 0.62 H (<0.60) mg/L FEU Sodium 140 (137-145) mmol/L Potassium 3.8 (3.5-5.1) mmol/L Chloride 107 (98-107) mmol/L Carbon Dioxide 27 (22-30) mmol/L Anion Gap 6 mmol/L BUN 11 (9-20) mg/dL Creatinine 0.73 (0.66-1.25) mg/dL Est GFR (CKD-EPI)AfAm >90 (>60 ml/min/1.73 sqM) Est GFR (CKD-EPI)NonAf >90 (>60 ml/min/1.73 sqM) Glucose 131 H (74-99) mg/dL Plasma Lactic Acid Phong (0.7-2.0) mmol/L Calcium 9.0 (8.4-10.2) mg/dL Magnesium 1.9 (1.6-2.3) mg/dL Total Bilirubin 0.2 (0.2-1.3) mg/dL AST 26 (17-59) U/L ALT 23 (4-49) U/L Alkaline Phosphatase 96 (38-126) U/L Troponin I (0.000-0.034) ng/mL Total Protein 6.3 (6.3-8.2) g/dL Albumin 3.6 (3.5-5.0) g/dL Coronavirus (PCR) (Not Detectd) 12/22/21 12/22/21 12/22/21 Range/Units 07:41 07:41 07:41 WBC (3.8-10.6) k/uL RBC (4.30-5.90) m/uL Hgb (13.0-17.5) gm/dL Hct (39.0-53.0) % MCV (80.0-100.0) fL MCH (25.0-35.0) pg MCHC (31.0-37.0) g/dL RDW (11.5-15.5) % Plt Count (150-450) k/uL MPV Neutrophils % % Lymphocytes % % Monocytes % % Eosinophils % % Basophils % % Neutrophils # (1.3-7.7) k/uL Lymphocytes # (1.0-4.8) k/uL Monocytes # (0-1.0) k/uL Eosinophils # (0-0.7) k/uL Basophils # (0-0.2) k/uL PT (9.0-12.0) sec INR (<1.2) APTT (22.0-30.0) sec D-Dimer (<0.60) mg/L FEU Sodium (137-145) mmol/L Potassium (3.5-5.1) mmol/L Chloride (98-107) mmol/L Carbon Dioxide (22-30) mmol/L Anion Gap mmol/L BUN (9-20) mg/dL Creatinine (0.66-1.25) mg/dL Est GFR (CKD-EPI)AfAm (>60 ml/min/1.73 sqM) Est GFR (CKD-EPI)NonAf (>60 ml/min/1.73 sqM) Glucose (74-99) mg/dL Plasma Lactic Acid Phong 1.9 (0.7-2.0) mmol/L Calcium (8.4-10.2) mg/dL Magnesium (1.6-2.3) mg/dL Total Bilirubin (0.2-1.3) mg/dL AST (17-59) U/L ALT (4-49) U/L Alkaline Phosphatase (38-126) U/L Troponin I 0.030 (0.000-0.034) ng/mL Total Protein (6.3-8.2) g/dL Albumin (3.5-5.0) g/dL Coronavirus (PCR) Not Detected (Not Detectd) 12/22/21 Range/Units 11:24 WBC (3.8-10.6) k/uL RBC (4.30-5.90) m/uL Hgb (13.0-17.5) gm/dL Hct (39.0-53.0) % MCV (80.0-100.0) fL MCH (25.0-35.0) pg MCHC (31.0-37.0) g/dL RDW (11.5-15.5) % Plt Count (150-450) k/uL MPV Neutrophils % % Lymphocytes % % Monocytes % % Eosinophils % % Basophils % % Neutrophils # (1.3-7.7) k/uL Lymphocytes # (1.0-4.8) k/uL Monocytes # (0-1.0) k/uL Eosinophils # (0-0.7) k/uL Basophils # (0-0.2) k/uL PT (9.0-12.0) sec INR (<1.2) APTT (22.0-30.0) sec D-Dimer (<0.60) mg/L FEU Sodium (137-145) mmol/L Potassium (3.5-5.1) mmol/L Chloride (98-107) mmol/L Carbon Dioxide (22-30) mmol/L Anion Gap mmol/L BUN (9-20) mg/dL Creatinine (0.66-1.25) mg/dL Est GFR (CKD-EPI)AfAm (>60 ml/min/1.73 sqM) Est GFR (CKD-EPI)NonAf (>60 ml/min/1.73 sqM) Glucose (74-99) mg/dL Plasma Lactic Acid Phong (0.7-2.0) mmol/L Calcium (8.4-10.2) mg/dL Magnesium (1.6-2.3) mg/dL Total Bilirubin (0.2-1.3) mg/dL AST (17-59) U/L ALT (4-49) U/L Alkaline Phosphatase (38-126) U/L Troponin I 0.156 H* (0.000-0.034) ng/mL Total Protein (6.3-8.2) g/dL Albumin (3.5-5.0) g/dL Coronavirus (PCR) (Not Detectd) Critical Care Time Critical Care Time: Yes Total Critical Care Time: 32 (elevated troponin, hypoxia, heparin gtt) Disposition Clinical Impression: COPD exacerbation, Pneumonia, Hypoxia, Elevated troponin Disposition: ADMITTED IP TO THIS HOSP Decision Date: 12/22/21 Decision Time: 11:28
[2021-12-22] MEDS: MORPHINE SULFATE 4 MG/ML SYRINGE IVP STA ×2 (08:01→09:30)
[2021-12-22 08:02] LABS: Basophils # (A) 0.1 k/uL (0-0.2); Basophils % (A) 1 %; Eosinophils # (A) 0.1 k/uL (0-0.7); Eosinophils % (A) 1 %; HCT 41.2 % (39.0-53.0); HGB 13.1 gm/dL (13.0-17.5); Lymphocytes # (A) 1.9 k/uL (1.0-4.8); Lymphocytes % (A) 13 %; MCH 31.2 pg (25.0-35.0); MCHC 31.8 g/dL (31.0-37.0); MCV 98.4 fL (80.0-100.0); Mean Platelet Volume 8.4; Monocytes # (A) 0.8 k/uL (0-1.0); Monocytes % (A) 6 %; Neutrophils # (A) 11.9 k/uL (1.3-7.7); Neutrophils % (A) 80 %; Platelet Count 273 k/uL (150-450); RBC 4.19 m/uL (4.30-5.90); RDW 12.5 % (11.5-15.5); WBC 14.9 k/uL (3.8-10.6)
[2021-12-22 08:17] LABS: ALT 23 U/L (4-49); AST 26 U/L (17-59); African American GFR (CKD) >90 (>60 ml/min/1.73 sqM); Albumin 3.6 g/dL (3.5-5.0); Alkaline Phosphatase 96 U/L (38-126); Anion Gap 6 mmol/L; Blood Urea Nitrogen 11 mg/dL (9-20); Carbon Dioxide 27 mmol/L (22-30); Chloride 107 mmol/L (98-107); Glucose 131 mg/dL (74-99); Magnesium 1.9 mg/dL (1.6-2.3); Non-African American GFR(CKD) >90 (>60 ml/min/1.73 sqM); Potassium 3.8 mmol/L (3.5-5.1); Sodium 140 mmol/L (137-145); Total Bilirubin 0.2 mg/dL (0.2-1.3); Total Protein 6.3 g/dL (6.3-8.2)
[2021-12-22 08:18] LABS: INR 0.9 (<1.2); Partial Thromboplastin Time 23.9 sec (22.0-30.0); Prothrombin Time 9.6 sec (9.0-12.0)
--- NOTE | 2021-12-22 08:58 | XR ---
EXAMINATION TYPE: XR chest 2V DATE OF EXAM: 12/22/2021 COMPARISON: 11/07/2021 INDICATION: Difficulty breathing history of emphysema TECHNIQUE: Frontal and lateral views of the chest are obtained. FINDINGS: The heart size is normal. The pulmonary vasculature is normal. Mild increased lung markings are the right face. On the lateral projection there is a large streak op acity which may be the minor fissure. Posterior pleural effusions present.. IMPRESSION: 1. Fluid within the minor fissure and posterior pleural effusion. 2. Mild right lower lobe infiltrate. Correlate for atelectasis and pneumonia within the differential. Follow-up is recommended.
--- NOTE | 2021-12-22 10:28 | CT ---
EXAMINATION TYPE: CT chest angio for PE DATE OF EXAM: 12/22/2021 COMPARISON: CT dated 04/17/2020 HISTORY: ALONDRA, Dyspnea, PE CT DLP: 460.8 mGy.cm. Automated Exposure Control for Dose Reduction was Utilized. TECHNIQUE AND CONTRAST: CTA scan of the thorax is performed without and with IV Contrast, patient injected with 100 ml mL of Isovue 370, pulmonary embolism protocol. MIP Images are created on an independent workstation and r eviewed. FINDINGS: No definite filling defect within the pulmonary trunk, main pulmonary arteries, lobar, segmental or p roximal subsegmental branches to suggest pulmonary embolism. Distal subsegmental branches are subopti juan antonio assessed. Increased cardiac size. Scattered arterial atherosclerotic calcifications. Suspected prominent hilar and mediastinal lymph nodes, suboptimally assessed by this CT scan. No pleural or pericardial effusio n. COPD changes mainly involving the upper lobes. Bronchial impaction of the bronchus intermedius as wel l as the middle and bilateral lower lobe bronchi, with almost complete collapse of the middle lobe an d subsegmental atelectasis of the right lower lobe. Associated infection cannot be excluded, please c orrelate clinically. Right upper lobe lateral pleural calcifications. Other scattered smaller bilateral pleural calcificat ions, possibly asbestos related. Small atelectasis/infiltration is seen at the posterior aspect of th e left lung base. Patent trachea and main bronchi. Right hepatic lobe anterior cyst. No aggressive deanna ne lesion. IMPRESSION: No major central pulmonary embolism. Significant bronchial impaction of the bronchus intermedius as well as the middle lobe and bilateral lower lobe bronchi, with almost complete collapse of the middle lobe and subsegmental atelectasis/con solidation of the right lower lobe as described above. Small atelectasis/consolidation seen at the posterior aspect of the left lung base. This could be due to recurrent aspiration however associated infection cannot be excluded. Recommend clinical correlat ion and follow-up to complete resolution after proper treatment to rule out underlying lesion. Other findings as described above.
[2021-12-22] MEDS ORDERED: NALOXONE 0.4 MG/ML 1 ML VIAL IV PRN (12:32)
[2021-12-22] MEDS ORDERED: ACETAMINOPHEN TAB 325 MG TAB PO PRN (12:32)
[2021-12-22] MEDS ORDERED: SUMAtriptan succinate 50 MG TAB PO PRN (12:35)
[2021-12-22] MEDS ORDERED: HEPARIN SODIUM 1,000 UN/ML (10ML VL) IV PRN (13:00)
[2021-12-22] MEDS ORDERED: HEPARIN SODIUM 1,000 UN/ML (10ML VL) IV ONE (13:00)
[2021-12-22] MEDS: HYDROcodone/APAP 7.5-325MG 1 EACH TAB PO PRN ×2 (13:55→23:32)
[2021-12-22] MEDS: HEPARIN SOD,PORK IN 0.45% NACL 25,000 UNIT in 0.45% NACL 1 250ML.BAG IV SCH (13:57)
[2021-12-22] MEDS: MORPHINE SULFATE ER 15 MG TABLET PO SCH (17:28)
[2021-12-22] MEDS: PREGABALIN 75 MG CAP PO SCH (17:28)
[2021-12-22] MEDS: IPRATROPIUM-ALBUTEROL 3 ML NEB INHALATION PRN (20:41)
[2021-12-22 20:45] LABS: Glucose,Whole Blood 167 mg/dL (70-110)
[2021-12-22] MEDS: methylPREDNISolone SOD SUCCI 125 MG/2 ML VIAL IV SCH (21:27)
[2021-12-22] MEDS: BACLOFEN 10 MG TAB PO SCH (21:27)
[2021-12-22] MEDS: MIRTAZAPINE 15 MG TAB PO SCH (21:27)
[2021-12-22] MEDS: QUEtiapine 50 MG TAB PO SCH (21:27)
[2021-12-22] MEDS: DULoxetine HCL 20 MG CAPSULE.DR PO SCH (21:39)
[2021-12-23 02:11] LABS: Basophils % (A) 0 %; Eosinophils % (A) 0 %; HCT 39.7 % (39.0-53.0); HGB 12.8 gm/dL (13.0-17.5); Lymphocytes % (A) 6 %; MCH 31.7 pg (25.0-35.0); MCHC 32.3 g/dL (31.0-37.0); MCV 98.3 fL (80.0-100.0); Mean Platelet Volume 8.4; Monocytes # (A) 0.4 k/uL (0-1.0); Monocytes % (A) 3 %; Neutrophils # (A) 14.3 k/uL (1.3-7.7); Neutrophils % (A) 90 %; Platelet Count 265 k/uL (150-450); RBC 4.04 m/uL (4.30-5.90); RDW 12.7 % (11.5-15.5); WBC 15.8 k/uL (3.8-10.6)
[2021-12-23] MEDS: methylPREDNISolone SOD SUCCI 125 MG/2 ML VIAL IV SCH ×4 (02:53→20:06)
[2021-12-23 06:24] LABS: Glucose,Whole Blood 177 mg/dL (70-110)
[2021-12-23] MEDS: PANTOPRAZOLE 40 MG TABLET PO SCH (06:32)
[2021-12-23] MEDS: DULoxetine HCL 20 MG CAPSULE.DR PO SCH ×2 (08:44→22:37)
[2021-12-23] MEDS: BACLOFEN 10 MG TAB PO SCH ×2 (08:44→20:04)
[2021-12-23] MEDS: HYDROcodone/APAP 7.5-325MG 1 EACH TAB PO PRN (08:45)
[2021-12-23] MEDS: MORPHINE SULFATE ER 15 MG TABLET PO SCH ×2 (08:45→20:03)
[2021-12-23] MEDS: PREGABALIN 75 MG CAP PO SCH ×2 (08:46→20:05)
[2021-12-23] MEDS: HEPARIN SOD,PORK IN 0.45% NACL 25,000 UNIT in 0.45% NACL 1 250ML.BAG IV SCH (09:38)
[2021-12-23] MEDS: AZITHROMYCIN 500 MG TAB PO SCH (10:52)
[2021-12-23 10:56] LABS: INR 0.9 (<1.2)
[2021-12-23 10:57] LABS: Prothrombin Time 10.4 sec (9.0-12.0)
--- NOTE | 2021-12-23 12:01 | P.CNPUL ---
History of Present Illness Consult date: 12/23/21 Requesting physician: Mack Fox Reason for consult: dyspnea, cough, COPD, hypoxemia, pneumonia, abnormal CXR/CT Chief complaint: Shortness of breath, cough, chest congestion, phlegm production. History of present illness: Pulmonary consult dated 12/23/2021. 56-year-old male who comes into the emergency department, on December 22, complaining of increasing shortness of breath. The patient states for the last 2 or 3 days, he's had increasing shortness of breath, chest congestion, cough, and green phlegm production. No fever or chills. No chest pain. The patient has a history of COPD, multiple sclerosis, Crohn's disease, and anemia. I saw him a couple years back with pleurisy. The patient had a chest x-ray which showed an abnormality particularly in the right middle lobe. Currently, the patient is feeling only mildly improved. He does have shortness of breath, and a congested wet cough. Currently, he's on 2 L nasal cannula, with saturations of 95%. White count 15.8, hemoglobin 12.8, hematocrit 39.7, and a platelet count of 265,000. D-dimer was 0.62. Sodium 140, potassium 3.8, chlorides 107, CO2 27, BUN 11, creatinine 0.73. Troponins were 0.156 and 0.043. Testing for c oronavirus was negative. Chest x-ray shows fluid within the minor fissure, and mild right lower lobe infiltrate. CT angiogram was negative for pulmonary embolism, but showed significant bronchial impaction the bronchus intermedius as well as the middle lobe and bilateral lower lobe bronchi, with complete collapse of the middle lobe subsegmental atelectasis consolidation of the right lower lobe. There is also small atelectasis/consolidation seen in the posterior aspect of the left lung base. Review of Systems REVIEW OF SYSTEMS: CONSTITUTIONAL: [Negative.] NEUROLOGIC: [ Negative.] HEENT: [ Negative.] CARDIAC: [Negative.] PULMONARY: Shortness of breath, cough, chest congestion, green phlegm production. GI: [Negative.] : [Negative.] RHEUMATOLOGIC: [ Negative.] IMMUNOLOGIC: [ Negative.] ENDOCRINE: [Negative. ] DERMATOLOGIC: [Negative.] Past Medical History Past Medical History: COPD, Eye Disorder, Musculoskeletal Disorder, Neurologic Disorder Additional Past Medical History / Comment(s): Multiple sclerosis USES A CANE TO AMBULATE, falls. has had in past occasional DOUBLE VISION. CHRONIC BACK NECK PAIN. HAD SPINAL STIMULATOR, THEN REMOVED; Migraine headache. Crohn's disease.lt ear [place] History of Any Multi-Drug Resistant Organisms: MRSA Date of last positivie culture/infection: 2014 MDRO Source:: lower back Past Surgical History: Appendectomy, Back Surgery, Bowel Resection, Hernia Repair Additional Past Surgical History / Comment(s): CERVICAL FUSION. SPINAL STIMULATOR implantation, revision and removal. FOREIGN BODY REMOVED RT CHEST WALL. 10/18/2015 wire removed from back. (from stimulator) Past Anesthesia/Blood Transfusion Reactions: Previous Problems w/ Anesthesia Additional Past Anesthesia/Blood Transfusion Reaction / Comment(s): STATES TAKES A LONG TIME TO WAKE UP Past Psychological History: Depression Smoking Status: Current every day smoker Past Alcohol Use History: Occasional Past Drug Use History: Marijuana - Past Family History Father Family Medical History: Cancer, Diabetes Mellitus Additional Family Medical History / Comment(s): CABG-TRIPLE BYPASS, Mother Family Medical History: Cancer, CVA/TIA, Diabetes Mellitus Additional Family Medical History / Comment(s): Stroke Brother(s) Additional Family Medical History / Comment(s): cardiomyopathy Medications and Allergies Home Medications Medication Instructions Recorded Confirmed Type Baclofen [Lioresal] 20 mg PO BID 12/21/15 12/22/21 History HYDROcodone/APAP 7.5-325MG [[place] 1 tab PO BID PRN 04/17/20 12/22/21 History 7.5-325] Mirtazapine [Remeron] 30 mg PO HS 04/17/20 12/22/21 History Pantoprazole Sodium [Protonix] 40 mg PO DAILY 04/17/20 12/22/21 History Morphine Sulfate [Ms Contin] 15 mg PO Q12HR 01/28/21 12/22/21 History Pregabalin 150 mg PO BID 09/14/21 12/22/21 History QUEtiapine [SEROquel] 50 mg PO HS 09/14/21 12/22/21 History SUMAtriptan succinate [Imitrex] 50 mg PO BID PRN 09/14/21 12/22/21 History rOPINIRole HCL [Requip] 1 mg PO HS 09/17/21 12/22/21 History DULoxetine HCL [Cymbalta] 20 mg PO BID 12/22/21 12/22/21 History Allergies Allergy/AdvReac Type Severity Reaction Status Date / Time No Known Allergies Allergy Verified 12/22/21 09:07 Physical Exam Osteopathic Statement: *. No significant issues noted on an osteopathic structural exam other than those noted in the History and Physical/Consult. Vitals: Vital Signs Temp Pulse Pulse Resp BP BP Pulse Ox 12/23/21 10:17 77 18 12/23/21 08:38 97.6 F 77 18 124/78 94 L 12/23/21 03:32 97.7 F 61 18 107/65 94 L 12/23/21 00:00 97.8 F 75 18 122/75 92 L 12/22/21 20:54 80 12/22/21 20:41 78 12/22/21 20:00 97.4 F L 81 18 124/76 97 12/22/21 16:20 73 18 12/22/21 16:10 97.9 F 73 18 118/75 97 12/22/21 15:00 98.4 F 117/81 94 L 12/22/21 14:00 70 16 116/81 92 L 12/22/21 13:01 62 18 116/81 94 L 12/22/21 13:00 63 16 129/82 92 L 12/22/21 12:58 97.9 F 73 18 118/75 97 12/22/21 12:00 105 H 18 119/79 92 L Intake and Output 12/22/21 12/23/21 12/23/21 22:59 06:59 14:59 Intake Total 179.333 85.8 120.367 Balance 179.333 85.8 120.367 Intake: Intake, IV Titration 61.333 85.8 120.367 Amount Heparin Sod,Pork in 0.45% 61.333 85.8 120.367 NaCl 25,000 unit In 0.45 % NaCl 1 250ml.bag @ 11. 306 UNITS/KG/HR 10 mls/hr IV .Q24H [facility] Rx#: [id number] Oral 118 Other: Voiding Method Toilet Toilet Toilet Urinal Urinal Urinal # Voids 1 1 No acute distress, oriented 3. No respiratory distress, use of accessory muscles, or conversational dyspnea. Currently on 2 L. HEENT examination is grossly unremarkable. Neck supple. Full range of motion. No adenopathy thyromegaly or neck vein distention. Cardiovascular examination reveals regular rhythm rate. S1-S2 normal. No S3 or S4. No discernible murmur noted. Heart rate 73 bpm. Lungs reveal scattered bilateral rhonchi, right greater than left. No wheezes. No crackles. Breath sounds diminished on the right. Saturations are 95% on 2 L. Abdomen soft bowel sounds are heard. No masses or tenderness. Extremities are intact. No cyanosis clubbing or edema. Skin is without rash or lesion. Neurologic examination is brief but nonfocal. Results - Laboratory Findings CBC and BMP: 12/23/21 01:56 12/22/21 07:41 PT/INR, D-dimer PT 10.4 sec (9.0-12.0) 12/23/21 09:25 INR 0.9 (<1.2) 12/23/21 09:25 D-Dimer 0.62 mg/L FEU (<0.60) H 12/22/21 07:41 Abnormal lab findings: Abnormal Labs 12/22/21 12/22/21 12/22/21 07:41 07:41 07:41 WBC 14.9 H RBC 4.19 L Hgb Neutrophils # 11.9 H APTT D-Dimer 0.62 H Glucose 131 H POC Glucose (mg/dL) Troponin I 12/22/21 12/22/21 12/22/21 11:24 19:25 20:43 WBC RBC Hgb Neutrophils # APTT 34.1 H D-Dimer Glucose POC Glucose (mg/dL) 167 H Troponin I 0.156 H* 12/23/21 12/23/21 12/23/21 01:56 01:56 06:23 WBC 15.8 H RBC 4.04 L Hgb 12.8 L Neutrophils # 14.3 H APTT 41.2 H D-Dimer Glucose POC Glucose (mg/dL) 177 H Troponin I 12/23/21 12/23/21 09:25 10:02 WBC RBC Hgb Neutrophils # APTT 40.0 H D-Dimer Glucose POC Glucose (mg/dL) Troponin I 0.043 H* - Diagnostic Findings Chest x-ray: image reviewed CT scan - chest: image reviewed Assessment and Plan Assessment: Acute hypoxemic respiratory failure, secondary to bilateral pneumonia, right greater than left. History of COPD, not particularly active at this time. Prior history of pleurisy. History of multiple sclerosis. History of chronic back pain. History of Crohn's disease. History of anemia. History of migraine cephalgia. Plan: Plan dated 12/23/2021. The patient's on updraft treatments. The patient's also getting Solu-Medrol, as well as azithromycin and Rocephin. Recommend deep breathing, coughing, clearing secretions. A flutter valve will also be of help. No additional recommendations are made. Repeat chest x-ray in a day or 2. Prognosis is guarded. We will continue to follow the patient and make recommendations where appropriate. Time with Patient: Greater than 30
[2021-12-23 12:39] LABS: Glucose,Whole Blood 128 mg/dL (70-110)
--- NOTE | 2021-12-23 13:34 | P.CRDCN ---
History of Present Illness Consult date: 12/23/21 History of present illness: HISTORY OF PRESENT ILLNESS: This is a 56-year-old male with a past medical history significant for mild nonischemic cardiomyopathy and chronic back and neck pain. Patient follows in the office with Dr. Geronimo. We have been asked to see the patient in consultation for chest pain. Patient examined at the bedside. Patient presented to the hospital with a chief complaint of shortness of breath. He reports having some chest pain that started after having multiple bouts of coughing. He reports the pain was a sharp pain in the middle of his chest. Hematemesis examination, the patient denies any chest pain or pressure. He reports improvement in his shortness of breath. * EKG reveals sinus mechanism with no signs of acute ischemia * Chest xray mild right lower lobe infiltrate. Correlate for atelectasis and pneumonia. * Laboratory data: WBC 15.8. Hemoglobin 12.8. Platelet count 265. Sodium 140. Potassium 3.8. BUN 11. Creatinine 0.73. Troponin 0.030. 0.156. 0.043. * Current home cardiac medications include none * Most recent echocardiogram obtained in August 2021 revealed ejection fraction 45-50%, mild MR, mild TR * Cardiac catheterization history: 2016 revealing normal coronary arteries * Patient underwent Lexiscan stress test in June 2020 which was negative for ischemia REVIEW OF SYSTEMS: At the time of my exam: CONSTITUTIONAL: Denies fever or chills. HEENT: Denies blurred vision, vision changes, or eye pain. Denies hemoptysis CARDIOVASCULAR: Denies chest pain. Denies orthopnea. Denies PND. Denies palpitations RESPIRATORY: Denies shortness of breath. GASTROINTESTINAL: Denies abdominal pain. Denies nausea or vomiting. HEMATOLOGIC: Denies bleeding disorders. GENITOURINARY: Denies any blood in urine. SKIN: Denies pruitis. Denies rash. PHYSICAL EXAM: VITAL SIGNS: Reviewed. GENERAL: Well-developed in no acute distress. HEENT: Head is normocephalic. Pupils are equal, round. Sclerae anicteric. Mucous membranes of the mouth are moist. Neck supple. No JVD or thyromegaly LUNGS: Respirations even and unlabored. Lungs diminished bilaterally HEART: Regular rate and rhythm. S1 and S2 heard. ABDOMEN: Soft. Nondistended. Nontender. EXTREMITIES: Normal range of motion. No clubbing or cyanosis. Peripheral pulses intact. No lower extremity edema NEUROLOGIC: Awake and alert. Oriented x 3. ASSESSMENT: Shortness of breath Pneumonia Chest pain, likely secondary to above Abnormal troponins, ACS unlikely History of mild nonischemic cardiomyopathy Nicotine dependence PLAN: Continue current cardiac medications Obtain 2D echo to assess cardiac structure and function Continue IV heparin until echo is resulted Further recommendations pending patient course Nurse practitioner note has been reviewed by physician. Signing provider agrees with the documented findings, assessment, and plan of care. Past Medical History Past Medical History: COPD, Eye Disorder, Musculoskeletal Disorder, Neurologic Disorder Additional Past Medical History / Comment(s): Multiple sclerosis USES A CANE TO AMBULATE, falls. has had in past occasional DOUBLE VISION. CHRONIC BACK NECK PAIN. HAD SPINAL STIMULATOR, THEN REMOVED; Migraine headache. Crohn's disease.lt ear [place] History of Any Multi-Drug Resistant Organisms: MRSA Date of last positivie culture/infection: 2014 MDRO Source:: lower back Past Surgical History: Appendectomy, Back Surgery, Bowel Resection, Hernia Repair Additional Past Surgical History / Comment(s): CERVICAL FUSION. SPINAL STIMULATOR implantation, revision and removal. FOREIGN BODY REMOVED RT CHEST WALL. 10/18/2015 wire removed from back. (from stimulator) Past Anesthesia/Blood Transfusion Reactions: Previous Problems w/ Anesthesia Additional Past Anesthesia/Blood Transfusion Reaction / Comment(s): STATES TAKES A LONG TIME TO WAKE UP Past Psychological History: Depression Smoking Status: Current every day smoker Past Alcohol Use History: Occasional Past Drug Use History: Marijuana - Past Family History Father Family Medical History: Cancer, Diabetes Mellitus Additional Family Medical History / Comment(s): CABG-TRIPLE BYPASS, Mother Family Medical History: Cancer, CVA/TIA, Diabetes Mellitus Additional Family Medical History / Comment(s): Stroke Brother(s) Additional Family Medical History / Comment(s): cardiomyopathy Medications and Allergies Home Medications Medication Instructions Recorded Confirmed Type Baclofen [Lioresal] 20 mg PO BID 12/21/15 12/22/21 History HYDROcodone/APAP 7.5-325MG [[place] 1 tab PO BID PRN 04/17/20 12/22/21 History 7.5-325] Mirtazapine [Remeron] 30 mg PO HS 04/17/20 12/22/21 History Pantoprazole Sodium [Protonix] 40 mg PO DAILY 04/17/20 12/22/21 History Morphine Sulfate [Ms Contin] 15 mg PO Q12HR 01/28/21 12/22/21 History Pregabalin 150 mg PO BID 09/14/21 12/22/21 History QUEtiapine [SEROquel] 50 mg PO HS 09/14/21 12/22/21 History SUMAtriptan succinate [Imitrex] 50 mg PO BID PRN 09/14/21 12/22/21 History rOPINIRole HCL [Requip] 1 mg PO HS 09/17/21 12/22/21 History DULoxetine HCL [Cymbalta] 20 mg PO BID 12/22/21 12/22/21 History Allergies Allergy/AdvReac Type Severity Reaction Status Date / Time No Known Allergies Allergy Verified 12/22/21 09:07 Physical Exam Vitals: Vital Signs Temp Pulse Pulse Resp BP BP Pulse Ox 12/23/21 11:53 73 18 109/69 95 12/23/21 10:17 77 18 12/23/21 08:38 97.6 F 77 18 124/78 94 L 12/23/21 03:32 97.7 F 61 18 107/65 94 L 12/23/21 00:00 97.8 F 75 18 122/75 92 L 12/22/21 20:54 80 12/22/21 20:41 78 12/22/21 20:00 97.4 F L 81 18 124/76 97 12/22/21 16:20 73 18 12/22/21 16:10 97.9 F 73 18 118/75 97 12/22/21 15:00 98.4 F 117/81 94 L 12/22/21 14:00 70 16 116/81 92 L Intake and Output 12/22/21 12/23/21 12/23/21 22:59 06:59 14:59 Intake Total 179.333 85.8 120.367 Output Total 775 Balance 179.333 85.8 -654.633 Intake: Intake, IV Titration 61.333 85.8 120.367 Amount Heparin Sod,Pork in 0.45% 61.333 85.8 120.367 NaCl 25,000 unit In 0.45 % NaCl 1 250ml.bag @ 11. 306 UNITS/KG/HR 10 mls/hr IV .Q24H [facility] Rx#: [id number] Oral 118 Output: Urine 775 Other: Voiding Method Toilet Toilet Toilet Urinal Urinal Urinal # Voids 1 1 Results 12/23/21 01:56 12/22/21 07:41 Cardiac Enzymes 12/23/21 Range/Units 10:02 Troponin I 0.043 H* (0.000-0.034) ng/mL Coagulation 12/22/21 12/23/21 12/23/21 Range/Units 19:25 01:56 09:25 PT 10.4 (9.0-12.0) sec APTT 34.1 H 41.2 H (22.0-30.0) sec 12/23/21 Range/Units 09:25 PT (9.0-12.0) sec APTT 40.0 H (22.0-30.0) sec CBC 12/23/21 Range/Units 01:56 WBC 15.8 H (3.8-10.6) k/uL RBC 4.04 L (4.30-5.90) m/uL Hgb 12.8 L (13.0-17.5) gm/dL Hct 39.7 (39.0-53.0) % Plt Count 265 (150-450) k/uL Current Medications Generic Name Dose Route Start Last Admin Trade Name Freq PRN Reason Stop Dose Admin Acetaminophen 650 mg 12/22/21 12:32 12/22/21 20:28 Acetaminophen Tab 325 Mg Tab PO 650 mg Q6HR PRN Administration Mild Pain or Fever > 100.5 Hydrocodone Bitart/Acetaminophen 1 each 12/22/21 12:35 12/23/21 08:45 Hydrocodone/Apap 7.5-325mg 1 Each Tab PO 1 each BID PRN Administration Pain Albuterol/Ipratropium 3 ml 12/22/21 17:47 12/22/21 20:41 Ipratropium-Albuterol 3 Ml Neb INHALATION 3 ml RT-Q4H PRN Administration Shortness Of Breath Or Wheezing Azithromycin 500 mg 12/23/21 09:45 12/23/21 10:52 Azithromycin 500 Mg Tab PO 12/25/21 09:01 500 mg DAILY CANDIS Administration Protocol Baclofen 20 mg 12/22/21 21:00 12/23/21 08:44 Baclofen 10 Mg Tab PO 20 mg BID CANDIS Administration Duloxetine HCl 20 mg 12/22/21 21:00 12/23/21 08:44 Duloxetine Hcl 20 Mg Capsule.Dr PO 20 mg BID CANDIS Administration Heparin Sodium (Porcine) 0 unit 12/22/21 13:00 12/23/21 02:53 Heparin Sodium 1,000 Un/Ml (10ml Vl) IV 2,211 unit PER PROTOCOL PRN Administration Low PTT Protocol Heparin Sodium/Sodium Chloride 250 mls @ 10 mls/hr 12/22/21 13:00 12/23/21 10:48 25,000 unit/ Sodium Chloride IV 19.22 units/kg/hr .Q24H CANDIS 17 mls/hr Titration Protocol 11.306 UNITS/KG/HR Ceftriaxone Sodium 1 gm/ 50 mls @ 100 mls/hr 12/23/21 10:00 12/23/21 10:54 Sodium Chloride IVPB 100 mls/hr Q24HR CANDIS Administration Methylprednisolone Sodium Succinate 60 mg 12/22/21 21:00 12/23/21 08:44 Methylprednisolone Sod Succi 125 Mg/2 Ml Vial IV 60 mg Q6H CANDIS Administration Mirtazapine 30 mg 12/22/21 21:00 12/22/21 21:27 Mirtazapine 15 Mg Tab PO 30 mg HS CANDIS Administration Morphine Sulfate 15 mg 12/22/21 21:00 12/23/21 08:45 Morphine Sulfate Er 15 Mg Tablet PO 15 mg Q12HR CANDIS Administration Protocol Naloxone HCl 0.2 mg 12/22/21 12:32 Naloxone 0.4 Mg/Ml 1 Ml Vial IV Q2M PRN Opioid Reversal Pantoprazole Sodium 40 mg 12/23/21 07:30 12/23/21 06:32 Pantoprazole 40 Mg Tablet PO 40 mg [id number] CANDIS Administration Pregabalin 150 mg 12/22/21 21:00 12/23/21 08:46 Pregabalin 75 Mg Cap PO 150 mg BID CANDIS Administration Quetiapine Fumarate 50 mg 12/22/21 21:00 12/22/21 21:27 Quetiapine 50 Mg Tab PO 50 mg HS CANDIS Administration Ropinirole HCl 1 mg 12/22/21 21:00 12/22/21 21:27 Ropinirole Hcl 1 Mg Tab PO 1 mg HS CANDIS Administration Sumatriptan Succinate 50 mg 12/22/21 12:35 Sumatriptan Succinate 50 Mg Tab PO BID PRN Migraine Headache Intake and Output 12/22/21 12/23/21 12/23/21 22:59 06:59 14:59 Intake Total 179.333 85.8 120.367 Output Total 775 Balance 179.333 85.8 -654.633 Intake: Intake, IV Titration 61.333 85.8 120.367 Amount Heparin Sod,Pork in 0.45% 61.333 85.8 120.367 NaCl 25,000 unit In 0.45 % NaCl 1 250ml.bag @ 11. 306 UNITS/KG/HR 10 mls/hr IV .Q24H [facility] Rx#: [id number] Oral 118 Output: Urine 775 Other: Voiding Method Toilet Toilet Toilet Urinal Urinal Urinal # Voids 1 1 12/23/21 01:56 12/22/21 07:41
--- NOTE | 2021-12-23 14:25 | P.HPIM ---
History of Present Illness H&P Date: 12/23/21 Chief Complaint: Worsening dyspnea, chest discomfort with deep inspiration, cough This is a 56-year-old gentleman with past medical history of multi-valvular disease, Crohn's, anemia, multiple sclerosis and multiple other medical issues, presented to the ER with worsening shortness of breath and productive cough 3 days,concerned that he had Covid. He had been around his granddaughter who is positive. Reports sharp midsternal chest pain, nonradiating with deep inspirati on and cough. Denies diaphoresis chills or syncope. Denies palpitations, lightheadedness or dizziness. Reports cough with minimal sputum production. On admission maintaining O2 sats in the low 90s on 2 L nasal cannula, respiratory rate 18-20. Chest x-ray reported fluid within the minor fissure and posterior pleural effusion, mild right lower lobe infiltrate, posterior pleural effusions present. D-dimer elevated, 0.62. CTA reported no major central pulmonary embolism, significant bronchial impaction of the bronchus intermedius as well as the middle lobe and bilateral lower lobe bronchi with almost complete collapse of the middle lobe and subsegmental atelectasis, consolidation right lower lobe. Afebrile, WBC 15.8. Lactic acid 1.9. Coronavirus not detected. Hemoglobin 12.8, platelets 265. Electrolytes within normal limits. Renal function stable. Blood sugars controlled.Troponins 0.030, 0.156. EKG sinus rhythm. Placed on heparin drip in the ER. Echo 2021 reported EF 45-50%. Review of Systems ROS Statement: Those systems with pertinent positive or pertinent negative responses have been documented in the HPI. ROS Other: All systems not noted in ROS Statement are negative. Past Medical History Past Medical History: COPD, Eye Disorder, Musculoskeletal Disorder, Neurologic Disorder Additional Past Medical History / Comment(s): Multiple sclerosis USES A CANE TO AMBULATE, falls. has had in past occasional DOUBLE VISION. CHRONIC BACK NECK PAIN. HAD SPINAL STIMULATOR, THEN REMOVED; Migraine headache. Crohn's disease.lt ear [place] History of Any Multi-Drug Resistant Organisms: MRSA Date of last positivie culture/infection: 2014 MDRO Source:: lower back Past Surgical History: Appendectomy, Back Surgery, Bowel Resection, Hernia Repair Additional Past Surgical History / Comment(s): CERVICAL FUSION. SPINAL STIMULATOR implantation, revision and removal. FOREIGN BODY REMOVED RT CHEST WALL. 10/18/2015 wire removed from back. (from stimulator) Past Anesthesia/Blood Transfusion Reactions: Previous Problems w/ Anesthesia Additional Past Anesthesia/Blood Transfusion Reaction / Comment(s): STATES TAKES A LONG TIME TO WAKE UP Past Psychological History: Depression Smoking Status: Current every day smoker Past Alcohol Use History: Occasional Past Drug Use History: Marijuana - Past Family History Father Family Medical History: Cancer, Diabetes Mellitus Additional Family Medical History / Comment(s): CABG-TRIPLE BYPASS, Mother Family Medical History: Cancer, CVA/TIA, Diabetes Mellitus Additional Family Medical History / Comment(s): Stroke Brother(s) Additional Family Medical History / Comment(s): cardiomyopathy Medications and Allergies Home Medications Medication Instructions Recorded Confirmed Type Baclofen [Lioresal] 20 mg PO BID 12/21/15 12/22/21 History HYDROcodone/APAP 7.5-325MG [[place] 1 tab PO BID PRN 04/17/20 12/22/21 History 7.5-325] Mirtazapine [Remeron] 30 mg PO HS 04/17/20 12/22/21 History Pantoprazole Sodium [Protonix] 40 mg PO DAILY 04/17/20 12/22/21 History Morphine Sulfate [Ms Contin] 15 mg PO Q12HR 01/28/21 12/22/21 History Pregabalin 150 mg PO BID 09/14/21 12/22/21 History QUEtiapine [SEROquel] 50 mg PO HS 09/14/21 12/22/21 History SUMAtriptan succinate [Imitrex] 50 mg PO BID PRN 09/14/21 12/22/21 History rOPINIRole HCL [Requip] 1 mg PO HS 09/17/21 12/22/21 History DULoxetine HCL [Cymbalta] 20 mg PO BID 12/22/21 12/22/21 History Allergies Allergy/AdvReac Type Severity Reaction Status Date / Time No Known Allergies Allergy Verified 12/22/21 09:07 Physical Exam Vitals: Vital Signs Temp Pulse Pulse Resp BP BP Pulse Ox 12/23/21 11:53 73 18 109/69 95 12/23/21 10:17 77 18 12/23/21 08:38 97.6 F 77 18 124/78 94 L 12/23/21 03:32 97.7 F 61 18 107/65 94 L 12/23/21 00:00 97.8 F 75 18 122/75 92 L 12/22/21 20:54 80 12/22/21 20:41 78 12/22/21 20:00 97.4 F L 81 18 124/76 97 12/22/21 16:20 73 18 12/22/21 16:10 97.9 F 73 18 118/75 97 12/22/21 15:00 98.4 F 117/81 94 L 12/22/21 14:00 70 16 116/81 92 L Intake and Output 12/22/21 12/23/21 12/23/21 22:59 06:59 14:59 Intake Total 179.333 85.8 120.367 Output Total 775 Balance 179.333 85.8 -654.633 Intake: Intake, IV Titration 61.333 85.8 120.367 Amount Heparin Sod,Pork in 0.45% 61.333 85.8 120.367 NaCl 25,000 unit In 0.45 % NaCl 1 250ml.bag @ 11. 306 UNITS/KG/HR 10 mls/hr IV .Q24H [facility] Rx#: [id number] Oral 118 Output: Urine 775 Other: Voiding Method Toilet Toilet Toilet Urinal Urinal Urinal # Voids 1 1 PHYSICAL EXAM: VITAL SIGNS: As above GENERAL: Sitting up in bed, no acute distress HEENT: Conjunctivae normal. eyes normal. NECK: No JVD. No thyroid enlargement. No LNs CARDIOVASCULAR: S1, S2 regular.No murmur RESPIRATION: Breath sounds diminished in the bases. Loose congested cough. Positive rhonchi greatest on the right. ABDOMEN: Soft, nontender . No guarding. no masses palpable. No ascites, No h epatosplenomegaly.Bowel sounds heard. LEGS: No edema. no swelling PSYCHIATRY: Alert and oriented X3, mood and affect normal. NERVOUS SYSTEM: Cranial N 2-12 grossly normal. No focal deficits. Strength and sensation grossly intact. Skin: Warm and dry, no rash Results CBC & Chem 7: 12/23/21 01:56 12/22/21 07:41 Labs: Abnormal Lab Results - Last 24 Hours (Table) 12/22/21 12/22/21 12/23/21 Range/Units 19:25 20:43 01:56 WBC 15.8 H (3.8-10.6) k/uL RBC 4.04 L (4.30-5.90) m/uL Hgb 12.8 L (13.0-17.5) gm/dL Neutrophils # 14.3 H (1.3-7.7) k/uL APTT 34.1 H (22.0-30.0) sec POC Glucose (mg/dL) 167 H (70-110) mg/dL Troponin I (0.000-0.034) ng/mL 12/23/21 12/23/21 12/23/21 Range/Units 01:56 06:23 09:25 WBC (3.8-10.6) k/uL RBC (4.30-5.90) m/uL Hgb (13.0-17.5) gm/dL Neutrophils # (1.3-7.7) k/uL APTT 41.2 H 40.0 H (22.0-30.0) sec POC Glucose (mg/dL) 177 H (70-110) mg/dL Troponin I (0.000-0.034) ng/mL 12/23/21 12/23/21 Range/Units 10:02 12:38 WBC (3.8-10.6) k/uL RBC (4.30-5.90) m/uL Hgb (13.0-17.5) gm/dL Neutrophils # (1.3-7.7) k/uL APTT (22.0-30.0) sec POC Glucose (mg/dL) 128 H (70-110) mg/dL Troponin I 0.043 H* (0.000-0.034) ng/mL Microbiology - Last 24 Hours (Table) 12/22/21 10:00 Blood Culture - Preliminary Blood No Growth after 24 hours 12/22/21 09:45 Blood Culture - Preliminary Blood No Growth after 24 hours Thrombosis Risk Factor Assmnt - Choose All That Apply Any of the Below Risk Factors Present?: Yes Each Factor Represents 1 point: Abnormal pulmonary function (COPD), Age 41-60 years, Serious lung disease incl. pneumonia (< 1month) Other Risk Factors: No Other congenital or acquired thrombophilia - If yes, enter type in comment: No Thrombosis Risk Factor Assessment Total Risk Factor Score: 3 Thrombosis Risk Factor Assessment Level: Moderate Risk Assessment and Plan Assessment: Acute bilateral pneumonia, right greater than left, community-acquired Acute hypoxic respiratory failure secondary to the above Atypical chest pain, mildly elevated initial troponin, second troponin pending, related to pneumonia. Cardiology following. COPD, stable Crohn's disease Multiple sclerosis Chronic nicotine dependence Chronic back pain, patient has a pain contract with Dr. Carlin Crohn's disease Ongoing Nicotine dependence Marijuana use Plan: Continue on current medication regime ,monitoring and symptomatic treatment. Antibiotics of Rocephin, azithromycin initiated along with IV steroids. Currently on heparin drip, second troponin pending, cardiology and pulmonary consults in place with further recommendations pending. The impression and plan of care has been dictated as directed. : I performed a history and examination of this patient, discussed the same with the dictator. I agree with the dictator's note ,documented as a scribe. Any a dditional findings or plans will be noted.
[2021-12-23 17:02] LABS: Glucose,Whole Blood 201 mg/dL (70-110)
[2021-12-23] MEDS: INSULIN ASPART (NovoLOG) 100 UNIT/ML VIAL SQ SCH ×2 (17:13→21:29)
[2021-12-23] MEDS: IPRATROPIUM-ALBUTEROL 3 ML NEB INHALATION PRN (20:03)
[2021-12-23] MEDS: MIRTAZAPINE 15 MG TAB PO SCH (20:04)
[2021-12-23] MEDS: QUEtiapine 50 MG TAB PO SCH (20:05)
[2021-12-23 21:07] LABS: Glucose,Whole Blood 94 mg/dL (70-110)
[2021-12-24] MEDS: HYDROcodone/APAP 7.5-325MG 1 EACH TAB PO PRN ×2 (00:37→15:02)
[2021-12-24] MEDS: methylPREDNISolone SOD SUCCI 125 MG/2 ML VIAL IV SCH ×4 (02:49→20:26)
[2021-12-24 06:11] LABS: Glucose,Whole Blood 224 mg/dL (70-110)
[2021-12-24] MEDS: INSULIN ASPART (NovoLOG) 100 UNIT/ML VIAL SQ SCH ×4 (06:22→21:31)
[2021-12-24] MEDS: PANTOPRAZOLE 40 MG TABLET PO SCH (06:23)
[2021-12-24] MEDS: NITROGLYCERIN SL TABS 0.4 MG TAB SUBLINGUAL STA (07:15)
[2021-12-24 08:19] LABS: Basophils # (A) 0.1 k/uL (0-0.2); Basophils % (A) 1 %; Eosinophils # (A) 0.2 k/uL (0-0.7); Eosinophils % (A) 1 %; HGB 13.5 gm/dL (13.0-17.5); Hypochromasia Slight; Lymphocytes # (A) 1.3 k/uL (1.0-4.8); Lymphocytes % (A) 7 %; MCHC 31.5 g/dL (31.0-37.0); MCV 98.4 fL (80.0-100.0); Mean Platelet Volume 8.9; Monocytes # (A) 0.7 k/uL (0-1.0); Monocytes % (A) 4 %; Neutrophils % (A) 88 %; Platelet Count 295 k/uL (150-450); RBC 4.37 m/uL (4.30-5.90); RDW 12.5 % (11.5-15.5); WBC 19.3 k/uL (3.8-10.6)
[2021-12-24] MEDS: MORPHINE SULFATE ER 15 MG TABLET PO SCH ×2 (08:24→20:25)
[2021-12-24] MEDS: BACLOFEN 10 MG TAB PO SCH ×2 (08:24→20:24)
[2021-12-24] MEDS: PREGABALIN 75 MG CAP PO SCH ×2 (08:24→20:25)
[2021-12-24] MEDS: AZITHROMYCIN 500 MG TAB PO SCH (08:24)
[2021-12-24] MEDS: DULoxetine HCL 20 MG CAPSULE.DR PO SCH ×2 (08:25→21:30)
[2021-12-24] MEDS ORDERED: cefTRIAXone 1,000 MG VIAL (IM USE) IM SCH (09:00)
[2021-12-24] MEDS: HEPARIN SOD,PORK IN 0.45% NACL 25,000 UNIT in 0.45% NACL 1 250ML.BAG IV SCH ×2 (11:34→16:45)
[2021-12-24 11:38] LABS: Glucose,Whole Blood 141 mg/dL (70-110)
[2021-12-24] MEDS: IPRATROPIUM-ALBUTEROL 3 ML NEB INHALATION PRN ×3 (12:35→19:27)
--- NOTE | 2021-12-24 13:17 | P.PN ---
Subjective Progress Note Date: 12/24/21 Principal diagnosis: Pneumonia. Pulmonary consult dated 12/23/2021. 56-year-old male who comes into the emergency department, on December 22, complaining of increasing shortness of breath. The patient states for the last 2 or 3 days, he's had increasing shortness of breath, chest congestion, cough, and green phlegm production. No fever or chills. No chest pain. The patient has a history of COPD, multiple sclerosis, Crohn's disease, and anemia. I saw him a couple years back with pleurisy. The patient had a chest x-ray which showed an abnormality particularly in the right middle lobe. Currently, the patient is feeling only mildly improved. He does have shortness of breath, and a congested wet cough. Currently, he's on 2 L nasal cannula, with saturations of 95%. White count 15.8, hemoglobin 12.8, hematocrit 39.7, and a platelet count of 265,000. D-dimer was 0.62. Sodium 140, potassium 3.8, chlorides 107, CO2 27, BUN 11, creatinine 0.73. Troponins were 0.156 and 0.043. Testing for coronavirus was negative. Chest x-ray shows fluid within the minor fissure, and mild right lower lobe infiltrate. CT angiogram was negative for pulmonary embolism, but showed significant bronchial impaction the bronchus intermedius as well as the middle lobe and bilateral lower lobe bronchi, with complete collapse of the middle lobe subsegmental atelectasis consolidation of the right lower lobe. There is also small atelectasis/consolidation seen in the posterior aspect of the left lung base. Progress note dated 12/24/2021. 56-year-old male seen yesterday in consultation. He came into the emergency department complaining of increasing shortness of breath. The patient had an elevated troponin level, remains on IV heparin. An echocardiogram was ordered for today. We saw the patient for possible right middle lobe collapse, versus pneumonia. The patient did have an episode of chest pain, but it was completely gone when he received some sublingual nitroglycerin. Computed tomography scan was negative for pulmonary embolism. The patient may need a bronchoscopy airway examination, should the abnormality on x-ray not improved. White count 19.3, hemoglobin 13.5, hematocrit 43, platelet count 295,000. PTT 69.4. Objective - Vital Signs Vital signs: Vital Signs Temp 97.9 F 12/24/21 08:19 Pulse 84 12/24/21 12:45 Resp 18 12/24/21 12:06 BP 109/74 12/24/21 12:06 Pulse Ox 90 L 12/24/21 12:06 FiO2 Intake & Output 12/23/21 12/24/21 12/24/21 18:59 06:59 18:59 Intake Total 231.150 241.717 Output Total 775 1400 300 Balance -543.850 -1400 -58.283 Intake: Intake, IV Titration 231.150 121.717 Amount Heparin Sod,Pork in 0.45% 231.150 121.717 NaCl 25,000 unit In 0.45 % NaCl 1 250ml.bag @ 11. 306 UNITS/KG/HR 10 mls/hr IV .Q24H [facility] Rx#: [id number] Oral 120 Output: Urine 775 1400 300 Other: Voiding Method Toilet Toilet Toilet Urinal Urinal Urinal - Exam No acute distress, oriented 3. No respiratory distress, use of accessory muscles, or conversational dyspnea. Currently on 2 L. HEENT examination is grossly unremarkable. Neck supple. Full range of motion. No adenopathy thyromegaly or neck vein d istention. Cardiovascular examination reveals regular rhythm rate. S1-S2 normal. No S3 or S4. No discernible murmur noted. Heart rate 84 bpm. Lungs reveal scattered bilateral rhonchi, right greater than left. No wheezes. No crackles. Breath sounds diminished on the right. Saturations are 96% on 2 L. Abdomen soft bowel sounds are heard. No masses or tenderness. Extremities are intact. No cyanosis clubbing or edema. Skin is without rash or lesion. Neurologic examination is brief but nonfocal. - Labs CBC & Chem 7: 12/24/21 07:48 12/22/21 07:41 Labs: Abnormal Lab Results - Last 24 Hours (Table) 12/23/21 12/23/21 12/24/21 Range/Units 16:39 17:01 05:36 WBC (3.8-10.6) k/uL Neutrophils # (1.3-7.7) k/uL APTT 58.7 H (22.0-30.0) sec POC Glucose (mg/dL) 201 H 224 H (70-110) mg/dL 12/24/21 12/24/21 12/24/21 Range/Units 07:48 07:48 11:36 WBC 19.3 H (3.8-10.6) k/uL Neutrophils # 17.0 H (1.3-7.7) k/uL APTT 69.4 H (22.0-30.0) sec POC Glucose (mg/dL) 141 H (70-110) mg/dL Microbiology - Last 24 Hours (Table) 12/22/21 09:45 Blood Culture - Preliminary Blood No Growth after 48 hours 12/22/21 10:00 Blood Culture - Preliminary Blood No Growth after 48 hours Assessment and Plan Assessment: Acute hypoxemic respiratory failure, secondary to bilateral pneumonia, right greater than left. Elevated troponins, rule out non-ST segment elevation myocardial infarction. Patient currently being evaluated by cardiology. History of COPD, not particularly active at this time. Prior history of pleurisy. History of multiple sclerosis. History of chronic back pain. History of Crohn's disease. History of anemia. History of migraine cephalgia. Plan: Plan dated 12/23/2021. The patient's on updraft treatments. The patient's also getting Solu-Medrol, as well as azithromycin and Rocephin. Recommend deep breathing, coughing, clearing secretions. A flutter valve will also be of help. No additional recommendations are made. Repeat chest x-ray in a day or 2. Prognosis is guarded. We will continue to follow the patient and make recommendations where appropriate. Plan dated 12/24/2021. The patient is having echocardiogram. The patient is currently on Solu-Medrol, azithromycin, and Rocephin. The patient's also on breathing treatments. He's not having much in the way of shortness of breath. A repeat chest x-ray will be ordered for tomorrow. The patient's abnormality on x-ray/CAT scan does not improve, he may benefit from airway examination and bronchoscopy. We will continue to follow. Prognosis is guarded. Time with Patient: Less than 30
--- NOTE | 2021-12-24 15:36 | CA ---
Transthoracic Echo Report Name: Oz Monroe Age: 56 Gender: M : 1965 Exam Date: 12/24/2021 11:17 Exam Location: [facility] Ht (in): 71 Wt (lb): 195 Ordering Physician: Clifton Cantu MD ([id number]) Attending/Referring Phys: Wastewater Superintendent Leandra Marmolejo RDCS Procedure CPT: Indications: Chest Pain Cardiac Hx: Hx of heart disease Technical Quality: Good Contrast 1: Total Dose (mL): Contrast 2: Total Dose (mL): MEASUREMENTS (Male / Female) Normal Values 2D ECHO LV Diastolic Diameter PLAX 5.6 cm 4.2 - 5.9 / 3.9 - 5.3 cm LV Systolic Diameter PLAX 4.2 cm IVS Diastolic Thickness 0.9 cm 0.6 - 1.0 / 0.6 - 0.9 cm LVPW Diastolic Thickness 1.2 cm 0.6 - 1.0 / 0.6 - 0.9 cm LV Relative Wall Thickness 0.4 LV Diastolic Volume MOD 4C 133.2 cm??? LV Systolic Volume MOD 4C 87.4 cm??? LV Ejection Fraction MOD 4C 34.4 % LV Diastolic Length 4C 9.1 cm LV Systolic Length 4C 7.9 cm LA Volume 67.1 cm??? 18 - 58 / 22 - 52 cm??? M-MODE Aortic Root Diameter MM 3.2 cm LA Systolic Diameter MM 3.0 cm LA Ao Ratio MM 0.9 MV E Point Septal Separation 3.0 cm AV Cusp Separation MM 1.8 cm DOPPLER AV Peak Velocity 120.5 cm/s AV Peak Gradient 5.8 mmHg MV Area PHT 3.5 cm??? Mitral E Point Velocity 98.2 cm/s Mitral A Point Velocity 61.3 cm/s Mitral E to A Ratio 1.6 MV Deceleration Time 217.0 ms MV E' Velocity 9.4 cm/s Mitral E to MV E' Ratio 10.4 TR Peak Velocity 149.1 cm/s TR Peak Gradient 8.9 mmHg Right Ventricular Systolic Press 13.9 mmHg FINDINGS Left Ventricle Left ventricular ejection fraction is estimated at 35-40_ %. Left ventricular cavity size normal. Left ventricular wall thickness normal. Right Ventricle The right ventricle is normal in size and function. Right Atrium The right atrium is normal in size. Left Atrium Mildly increased left atrial volume. Mildly increased left atrial area. Mitral Valve Structurally normal mitral valve without significant stenosis or prolapse. There is moderate eccentric mitral regurgitation. Aortic Valve Structurally normal aortic valve without significant sclerosis or stenosis. There is no aortic regurgitation. Tricuspid Valve Structurally normal tricuspid valve without significant stenosis. Pulmonary artery systolic pressure is normal. Mild tricuspid regurgitation. Pulmonic Valve Structurally normal pulmonic valve without significant stenosis. There is no pulmonic regurgitation. Pericardium Normal pericardium without effusion. Aorta Normal aortic root dimension. CONCLUSIONS #1. Normal left ventricular size with generalized hypokinesia and an ejection fraction about 35-40%. #2. Eccentric moderate mitral regurgitation #3. Mild tricuspid regurgitation Previewed by: Dr. Clifton Cantu MD (Electronically Signed) Final Date: 24 December 2021 15:35
--- NOTE | 2021-12-24 15:48 | P.PN ---
Subjective Progress Note Date: 12/24/21 This is a 56-year-old male with a past medical history significant for mild nonischemic cardiomyopathy and chronic back and neck pain. Patient follows in the office with Dr. Geronimo. We have been asked to see the patient in consultation for chest pain. Patient examined at the bedside. Patient presented to the hospital with a chief complaint of shortness of breath. He reports having some chest pain that started after having multiple bouts of coughing. He reports the pain was a sharp pain in the middle of his chest. Hematemesis examination, the patient denies any chest pain or pressure. He reports improvement in his shortness of breath. * EKG reveals sinus mechanism with no signs of acute ischemia * Chest xray mild right lower lobe infiltrate. Correlate for atelectasis and pneumonia. * Laboratory data: WBC 15.8. Hemoglobin 12.8. Platelet count 265. Sodium 140. Potassium 3.8. BUN 11. Creatinine 0.73. Troponin 0.030. 0.156. 0.043. * Current home cardiac medications include none * Most recent echocardiogram obtained in August 2021 revealed ejection fraction 45-50%, mild MR, mild TR * Cardiac catheterization history: 2015 revealing normal coronary arteries * Patient underwent Lexiscan stress test in June 2020 which was negative for ischemia. 12/24/2021: This patient is admitted with atypical chest pain and shortness of breath. Chest x-ray and CT findings are suggestive of multiple lesions in the lung. He is being treated with multiple antibiotics for pneumonia. He still feeling some short of breath but seemed to be present before. He has history of nonischemic cardiomyopathy. Repeat echo Cardigan showed an ejection fraction of about 35-40% with generalized hypokinesia. Objective - Vital Signs Vital signs: Vital Signs Temp 97.9 F 12/24/21 08:19 Pulse 84 12/24/21 15:18 Resp 18 12/24/21 14:05 BP 109/74 12/24/21 12:06 Pulse Ox 96 12/24/21 15:18 FiO2 28 12/24/21 15:18 Intake & Output 12/23/21 12/24/21 12/24/21 18:59 06:59 18:59 Intake Total 231.150 241.717 Output Total 775 1400 825 Balance -543.850 -1400 -583.283 Intake: Intake, IV Titration 231.150 121.717 Amount Heparin Sod,Pork in 0.45% 231.150 121.717 NaCl 25,000 unit In 0.45 % NaCl 1 250ml.bag @ 11. 306 UNITS/KG/HR 10 mls/hr IV .Q24H [facility] Rx#: [id number] Oral 120 Output: Urine 775 1400 825 Other: Voiding Method Toilet Toilet Toilet Urinal Urinal Urinal - Exam GENERAL EXAM: Patient is alert and oriented and doesn't appear to be in any acute distress HEENT: Normocephalic. Normal reaction of pupils, equal size, normal range of extraocular motion. No erythema or exudates in the throat. NECK: No masses, no nuchal rigidity. CHEST: No chest wall deformity. LUNGS: Expiratory rhonchi diffusely HEART: S1 and S2 normal with no audible mumurs or gallops. Regular rhythm, femorals equal on both sides.. ABDOMEN: No hepatosplenomegaly, normal bowel sounds, no guarding or rigidity. SKIN: No rashes CENTRAL NERVOUS SYSTEM: No focal deficits. EXTREMITIES: No cyanosis, clubbing or edema. - Labs CBC & Chem 7: 12/24/21 07:48 12/22/21 07:41 Labs: Abnormal Lab Results - Last 24 Hours (Table) 12/23/21 12/23/21 12/24/21 Range/Units 16:39 17:01 05:36 WBC (3.8-10.6) k/uL Neutrophils # (1.3-7.7) k/uL APTT 58.7 H (22.0-30.0) sec POC Glucose (mg/dL) 201 H 224 H (70-110) mg/dL 12/24/21 12/24/21 12/24/21 Range/Units 07:48 07:48 11:36 WBC 19.3 H (3.8-10.6) k/uL Neutrophils # 17.0 H (1.3-7.7) k/uL APTT 69.4 H (22.0-30.0) sec POC Glucose (mg/dL) 141 H (70-110) mg/dL Microbiology - Last 24 Hours (Table) 12/22/21 09:45 Blood Culture - Preliminary Blood No Growth after 48 hours 12/22/21 10:00 Blood Culture - Preliminary Blood No Growth after 48 hours Assessment and Plan (1) Nonischemic cardiomyopathy Current Visit: Yes Status: Acute Code(s): I42.8 - OTHER CARDIOMYOPATHIES SNOMED Code(s): 76118748 (2) COPD exacerbation Current Visit: Yes Status: Acute Code(s): J44.1 - CHRONIC OBSTRUCTIVE PULMONARY DISEASE W (ACUTE) EXACERBATION SNOMED Code(s): 141706811 (3) Elevated troponin Current Visit: Yes Status: Acute Code(s): R77.8 - OTHER SPECIFIED ABNORMALITIES OF PLASMA PROTEINS SNOMED Code(s): 226155736 (4) Pneumonia Current Visit: Yes Status: Acute Code(s): J18.9 - PNEUMONIA, UNSPECIFIED ORGANISM SNOMED Code(s): 534408712 (5) Chronic systolic heart failure Current Visit: Yes Status: Acute Code(s): I50.22 - CHRONIC SYSTOLIC (CONGESTIVE) HEART FAILURE SNOMED Code(s): 754677949 (6) Atypical chest pain Current Visit: Yes Status: Acute Code(s): R07.89 - OTHER CHEST PAIN SNOMED Code(s): 757176170 Plan: We'll continue current medical therapy. We'll initiate him on Coreg, Lasix, Al dactone, and also lisinopril. Get a BNP and also BMP levels
[2021-12-24] MEDS: SPIRONOLACTONE 25 MG TAB PO SCH (16:45)
[2021-12-24] MEDS: carvediloL 3.125 MG TAB PO SCH (16:45)
[2021-12-24] MEDS: lisinopriL 5 MG TAB PO SCH (16:45)
[2021-12-24 16:58] LABS: Glucose,Whole Blood 132 mg/dL (70-110)
--- NOTE | 2021-12-24 18:22 | P.PN ---
Subjective This is a 56-year-old gentleman with past medical history of multi-valvular disease, Crohn's, anemia, multiple sclerosis and multiple other medical issues, presented to the ER with worsening shortness of breath and productive cough 3 days,concerned that he had Covid. He had been around his granddaughter who is positive. Reports sharp midsternal chest pain, nonradiating with deep inspiration and cough. Denies diaphoresis chills or syncope. Denies palpitations, lightheadedness or dizziness. Reports cough with minimal sputum production. On admission maintaining O2 sats in the low 90s on 2 L nasal cannula, respiratory rate 18-20. Chest x-ray reported fluid within the minor fissure and posterior pleural effusion, mild right lower lobe infiltrate, posterior pleural effusions present. D-dimer elevated, 0.62. CTA reported no major central pulmonary embolism, significant bronchial impaction of the bronchus intermedius as well as the middle lobe and bilateral lower lobe bronchi with almost complete collapse of the middle lobe and subsegmental atelectasis, consolidation right lower lobe. Afebrile, WBC 15.8. Lactic acid 1.9. Coronav irus not detected. Hemoglobin 12.8, platelets 265. Electrolytes within normal limits. Renal function stable. Blood sugars controlled.Troponins 0.030, 0.156. EKG sinus rhythm. Placed on heparin drip in the ER. Echo 2021 reported EF 45-50%. 12/24/2021 This is a pleasant 56 years old male with multiple medical problems presents with respiratory symptoms secondary to COPD exacerbation also he has evidence of bronchial impaction of bilateral lower lobe and middle lobe. Also has some troponin leak suspicious for non-STEMI and patient is started on heparin drip Echocardiogram today showing evidence of systolic dysfunction with ejection fraction 35-40% with moderate mitral regurgitation, he is currently on IV Lasix 20 mg twice daily, and today, while he kept on Zithromax and ceftriaxone for possible pneumonia although it felt less likely,. Leukocytosis is mainly due to steroid effect. Present the patient is still complaining from exertional dyspnea although he feels better at rest. He still have a little cough, however his chest pain went from 8-9/10 down to 0/10 today. And on exam is still wheezing but he has good air entry and he is saturating well on 2 L oxygen via nasal cannula Objective - Vital Signs Vital signs: Vital Signs Temp 97.9 F 12/24/21 08:19 Pulse 84 12/24/21 12:45 Resp 18 12/24/21 12:06 BP 109/74 12/24/21 12:06 Pulse Ox 90 L 12/24/21 12:06 FiO2 Intake & Output 12/23/21 12/24/21 12/24/21 18:59 06:59 18:59 Intake Total 231.150 241.717 Output Total 775 1400 300 Balance -543.850 -1400 -58.283 Intake: Intake, IV Titration 231.150 121.717 Amount Heparin Sod,Pork in 0.45% 231.150 121.717 NaCl 25,000 unit In 0.45 % NaCl 1 250ml.bag @ 11. 306 UNITS/KG/HR 10 mls/hr IV .Q24H [facility] Rx#: [id number] Oral 120 Output: Urine 775 1400 300 Other: Voiding Method Toilet Toilet Toilet Urinal Urinal Urinal - Exam GENERAL: The patient is alert and oriented x3, not in any acute distress. Well developed, well nourished. HEENT: Pupils are round and equally reacting to light. EOMI. No scleral icterus. No conjunctival pallor. Normocephalic, atraumatic. No pharyngeal erythema. No thyromegaly. CARDIOVASCULAR: S1 and S2 present. No murmurs, rubs, or gallops. -PULMONARY: Chest is clear to auscultation, bilateral scattered wheezing, minima lly limited air entry on both sides ABDOMEN: Soft, nontender, nondistended, normoactive bowel sounds. No palpable organomegaly. MUSCULOSKELETAL: No joint swelling or deformity. EXTREMITIES: No cyanosis, clubbing, or pedal edema. NEUROLOGICAL: Gross neurological examination did not reveal any focal deficits. SKIN: No rashes. no petechiae. - Labs CBC & Chem 7: 12/24/21 07:48 12/22/21 07:41 Labs: Abnormal Lab Results - Last 24 Hours (Table) 12/23/21 12/23/21 12/24/21 Range/Units 16:39 17:01 05:36 WBC (3.8-10.6) k/uL Neutrophils # (1.3-7.7) k/uL APTT 58.7 H (22.0-30.0) sec POC Glucose (mg/dL) 201 H 224 H (70-110) mg/dL 12/24/21 12/24/21 12/24/21 Range/Units 07:48 07:48 11:36 WBC 19.3 H (3.8-10.6) k/uL Neutrophils # 17.0 H (1.3-7.7) k/uL APTT 69.4 H (22.0-30.0) sec POC Glucose (mg/dL) 141 H (70-110) mg/dL Microbiology - Last 24 Hours (Table) 12/22/21 09:45 Blood Culture - Preliminary Blood No Growth after 48 hours 12/22/21 10:00 Blood Culture - Preliminary Blood No Growth after 48 hours Assessment and Plan Assessment: Acute COPD exacerbation associated with bronchial impaction of bilateral lower lobe and middle lobe areas. Nonischemic cardiomyopathy with ejection fraction 35-40% Elevated troponin suspicious forSTEMI converted on heparin drip Possible pneumonia but felt less likely. Leukocytosis, reactive secondary to steroid effect Moderate mitral regurgitation. Plan: This is a pleasant 56 male with COPD, CHF and colostomy and possible pneumonia. Continue Zithromax and ceftriaxone Continue with anticoagulation with heparin drip Continue sotalol 60 mg, IV Lasix 20 mg added today. Pulmonary cartilage team on the case. Labs and medication were reviewed.. Continue same treatment. Continue with symptomatic treatment. Resume home medication. Monitor lytes and vitals. DVT and GI prophylaxis. Further recommendations as per clinical course of the patient DVT prophylaxis: heparin GI Prophylaxis: Ppi PT/OT: Pending Prognosis is guarded
[2021-12-24] MEDS: MIRTAZAPINE 15 MG TAB PO SCH (20:24)
[2021-12-24] MEDS: QUEtiapine 50 MG TAB PO SCH (20:25)
[2021-12-24] MEDS: FUROSEMIDE 10 MG/ML 2 ML VIAL IV SCH (20:28)
[2021-12-24 20:50] LABS: Glucose,Whole Blood 148 mg/dL (70-110)
[2021-12-25] MEDS: methylPREDNISolone SOD SUCCI 125 MG/2 ML VIAL IV SCH ×2 (02:41→08:55)
[2021-12-25] MEDS: HYDROcodone/APAP 7.5-325MG 1 EACH TAB PO PRN ×2 (02:42→14:31)
[2021-12-25] MEDS: PANTOPRAZOLE 40 MG TABLET PO SCH (06:52)
[2021-12-25] MEDS: carvediloL 3.125 MG TAB PO SCH ×2 (06:52→17:19)
[2021-12-25] MEDS: INSULIN ASPART (NovoLOG) 100 UNIT/ML VIAL SQ SCH ×4 (06:55→21:27)
[2021-12-25 06:58] LABS: Glucose,Whole Blood 137 mg/dL (70-110)
[2021-12-25 08:02] LABS: Basophils # (A) 0.1 k/uL (0-0.2); Basophils % (A) 1 %; Eosinophils # (A) 0.2 k/uL (0-0.7); Eosinophils % (A) 1 %; HCT 43.4 % (39.0-53.0); Lymphocytes # (A) 1.3 k/uL (1.0-4.8); Lymphocytes % (A) 7 %; MCH 31.5 pg (25.0-35.0); MCHC 32.2 g/dL (31.0-37.0); MCV 97.9 fL (80.0-100.0); Mean Platelet Volume 8.7; Monocytes # (A) 0.5 k/uL (0-1.0); Monocytes % (A) 3 %; Neutrophils % (A) 89 %; Platelet Count 313 k/uL (150-450); RBC 4.43 m/uL (4.30-5.90); RDW 12.5 % (11.5-15.5); WBC 19.1 k/uL (3.8-10.6)
--- NOTE | 2021-12-25 08:06 | XR ---
EXAMINATION TYPE: XR chest 2V DATE OF EXAM: 12/25/2021 COMPARISON: 12/22/2021 HISTORY: Shortness of breath TECHNIQUE: Frontal and lateral views of the chest are obtained. FINDINGS: Scattered senescent parenchymal changes noted. Hyperinflation compatible with COPD. No evidence for infiltrate. No evidence for atelectasis. Heart size is stable. Mediastinal structures are stable and grossly unremarkable. No evidence for hilar prominence. Degenerative changes dorsal spine. IMPRESSION: 1. No evidence for acute pulmonary disease.
[2021-12-25 08:13] LABS: African American GFR (CKD) >90 (>60 ml/min/1.73 sqM); Anion Gap 7 mmol/L; Blood Urea Nitrogen 18 mg/dL (9-20); Calcium 8.9 mg/dL (8.4-10.2); Carbon Dioxide 25 mmol/L (22-30); Chloride 102 mmol/L (98-107); Glucose 160 mg/dL (74-99); Non-African American GFR(CKD) >90 (>60 ml/min/1.73 sqM); Potassium 4.3 mmol/L (3.5-5.1); Sodium 134 mmol/L (137-145)
[2021-12-25] MEDS: SPIRONOLACTONE 25 MG TAB PO SCH (08:54)
[2021-12-25] MEDS: BACLOFEN 10 MG TAB PO SCH ×2 (08:54→21:36)
[2021-12-25] MEDS: FUROSEMIDE 10 MG/ML 2 ML VIAL IV SCH (08:54)
[2021-12-25] MEDS: DULoxetine HCL 20 MG CAPSULE.DR PO SCH (08:55)
[2021-12-25] MEDS: PREGABALIN 75 MG CAP PO SCH ×2 (08:55→21:36)
[2021-12-25] MEDS: AZITHROMYCIN 500 MG TAB PO SCH (08:55)
[2021-12-25] MEDS: MORPHINE SULFATE ER 15 MG TABLET PO SCH ×2 (08:56→21:33)
[2021-12-25] MEDS: lisinopriL 5 MG TAB PO SCH (08:56)
--- NOTE | 2021-12-25 09:27 | P.PN ---
Subjective Progress Note Date: 12/25/21 This is a 56-year-old male with a past medical history significant for mild nonischemic cardiomyopathy and chronic back and neck pain. Patient follows in the office with Dr. Geronimo. We have been asked to see the patient in consultation for chest pain. Patient examined at the bedside. Patient presented to the hospital with a chief complaint of shortness of breath. He reports having some chest pain that started after having multiple bouts of coughing. He reports the pain was a sharp pain in the middle of his chest. Hematemesis examination, the patient denies any chest pain or pressure. He reports improvement in his shortness of breath. * EKG reveals sinus mechanism with no signs of acute ischemia * Chest xray mild right lower lobe infiltrate. Correlate for atelectasis and pneumonia. * Laboratory data: WBC 15.8. Hemoglobin 12.8. Platelet count 265. Sodium 140. Potassium 3.8. BUN 11. Creatinine 0.73. Troponin 0.030. 0.156. 0.043. * Current home cardiac medications include none * Most recent echocardiogram obtained in August 2021 revealed ejection fraction 45-50%, mild MR, mild TR * Cardiac catheterization history: 2015 revealing normal coronary arteries * Patient underwent Lexiscan stress test in June 2020 which was negative for ischemia. 12/24/2021: This patient is admitted with atypical chest pain and shortness of breath. Chest x-ray and CT findings are suggestive of multiple lesions in the lung. He is being treated with multiple antibiotics for pneumonia. He still feeling some short of breath but seemed to be present before. He has history of nonischemic cardiomyopathy. Repeat echo Cardigan showed an ejection fraction of about 35-40% with generalized hypokinesia. 12/25/2021: Patient symptomatically stable. Patient was initiated on Lasix, Aldactone, Coreg and lisinopril because of cardiomyopathy. Patient is tolerating lab work was stable with potassium range of 4.3 and creatinine is within normal limits. Chest x-ray showed improvement. I'm going discontinue IV Lasix and start him by mouth, Lasix 20 mg by mouth twice a day. Continue rest of the medications. Objective - Vital Signs Vital signs: Vital Signs Temp 97.3 F L 12/25/21 04:00 Pulse 58 L 12/25/21 04:00 Resp 12 12/25/21 04:00 BP 113/74 12/25/21 04:00 Pulse Ox 96 12/25/21 04:00 FiO2 28 12/24/21 15:18 Intake & Output 12/24/21 12/25/21 12/25/21 18:59 06:59 18:59 Intake Total 340.967 120 Output Total 825 1300 Balance -484.033 -1300 120 Weight 86.4 kg Intake: Intake, IV Titration 220.967 Amount Heparin Sod,Pork in 0.45% 220.967 NaCl 25,000 unit In 0.45 % NaCl 1 250ml.bag @ 11. 306 UNITS/KG/HR 10 mls/hr IV .Q24H [facility] Rx#: [id number] Oral 120 120 Output: Urine 825 1300 Other: Voiding Method Toilet Urinal Urinal # Voids 1 - Exam GENERAL EXAM: Patient is alert and oriented and doesn't appear to be in any acute distress HEENT: Normocephalic. Normal reaction of pupils, equal size, normal range of extraocular motion. No erythema or exudates in the throat. NECK: No masses, no nuchal rigidity. CHEST: No chest wall deformity. LUNGS: Expiratory rhonchi diffusely HEART: S1 and S2 normal with no audible mumurs or gallops. Regular rhythm, femorals equal on both sides.. ABDOMEN: No hepatosplenomegaly, normal bowel sounds, no guarding or rigidity. SKIN: No rashes CENTRAL NERVOUS SYSTEM: No focal deficits. EXTREMITIES: No cyanosis, clubbing or edema. - Labs CBC & Chem 7: 12/25/21 07:40 12/25/21 07:40 Labs: Abnormal Lab Results - Last 24 Hours (Table) 12/24/21 12/24/21 12/24/21 Range/Units 11:36 16:56 17:36 WBC (3.8-10.6) k/uL Neutrophils # (1.3-7.7) k/uL APTT 31.0 H (22.0-30.0) sec Sodium (137-145) mmol/L Glucose (74-99) mg/dL POC Glucose (mg/dL) 141 H 132 H (70-110) mg/dL 12/24/21 12/24/21 12/25/21 Range/Units 20:18 22:22 06:24 WBC (3.8-10.6) k/uL Neutrophils # (1.3-7.7) k/uL APTT 65.1 H (22.0-30.0) sec Sodium (137-145) mmol/L Glucose (74-99) mg/dL POC Glucose (mg/dL) 148 H 137 H (70-110) mg/dL 12/25/21 12/25/21 12/25/21 Range/Units 07:40 07:40 07:40 WBC 19.1 H (3.8-10.6) k/uL Neutrophils # 17.0 H (1.3-7.7) k/uL APTT 61.8 H (22.0-30.0) sec Sodium 134 L (137-145) mmol/L Glucose 160 H (74-99) mg/dL POC Glucose (mg/dL) (70-110) mg/dL Microbiology - Last 24 Hours (Table) 12/22/21 09:45 Blood Culture - Preliminary Blood No Growth after 48 hours 12/22/21 10:00 Blood Culture - Preliminary Blood No Growth after 48 hours Assessment and Plan (1) Nonischemic cardiomyopathy Current Visit: Yes Status: Acute Code(s): I42.8 - OTHER CARDIOMYOPATHIES SNOMED Code(s): 61874090 (2) COPD exacerbation Current Visit: Yes Status: Acute Code(s): J44.1 - CHRONIC OBSTRUCTIVE PULMONARY DISEASE W (ACUTE) EXACERBATION SNOMED Code(s): 239537693 (3) Elevated troponin Current Visit: Yes Status: Acute Code(s): R77.8 - OTHER SPECIFIED ABNORMALITIES OF PLASMA PROTEINS SNOMED Code(s): 445243065 (4) Pneumonia Current Visit: Yes Status: Acute Code(s): J18.9 - PNEUMONIA, UNSPECIFIED ORGANISM SNOMED Code(s): 736222284 (5) Chronic systolic heart failure Current Visit: Yes Status: Acute Code(s): I50.22 - CHRONIC SYSTOLIC (CONGESTIVE) HEART FAILURE SNOMED Code(s): 772337460 (6) Atypical chest pain Current Visit: Yes Status: Acute Code(s): R07.89 - OTHER CHEST PAIN SNOMED Code(s): 282458575 Plan: Findings consistent with a nonischemic cardiomyopathy and CHF. There could be concomitant pneumonia or COPD. Currently, patient is feeling better. I'm going to switch to by mouth Lasix and continue rest of the medication
[2021-12-25 11:40] LABS: Glucose,Whole Blood 156 mg/dL (70-110)
--- NOTE | 2021-12-25 11:50 | P.PN ---
Subjective Progress Note Date: 12/25/21 Principal diagnosis: Pneumonia. Pulmonary consult dated 12/23/2021. 56-year-old male who comes into the emergency department, on December 22, complaining of increasing shortness of breath. The patient states for the last 2 or 3 days, he's had increasing shortness of breath, chest congestion, cough, and green phlegm production. No fever or chills. No chest pain. The patient has a history of COPD, multiple sclerosis, Crohn's disease, and anemia. I saw him a couple years back with pleurisy. The patient had a chest x-ray which showed an abnormality particularly in the right middle lobe. Currently, the patient is feeling only mildly improved. He does have shortness of breath, and a congested wet cough. Currently, he's on 2 L nasal cannula, with saturations of 95%. White count 15.8, hemoglobin 12.8, hematocrit 39.7, and a platelet count of 265,000. D-dimer was 0.62. Sodium 140, potassium 3.8, chlorides 107, CO2 27, BUN 11, creatinine 0.73. Troponins were 0.156 and 0.043. Testing for coronavirus was negative. Chest x-ray shows fluid within the minor fissure, and mild right lower lobe infiltrate. CT angiogram was negative for pulmonary embolism, but showed significant bronchial impaction the bronchus intermedius as well as the middle lobe and bilateral lower lobe bronchi, with complete collapse of the middle lobe subsegmental atelectasis consolidation of the right lower lobe. There is also small atelectasis/consolidation seen in the posterior aspect of the left lung base. Progress note dated 12/24/2021. 56-year-old male seen yesterday in consultation. He came into the emergency department complaining of increasing shortness of breath. The patient had an elevated troponin level, remains on IV heparin. An echocardiogram was ordered for today. We saw the patient for possible right middle lobe collapse, versus pneumonia. The patient did have an episode of chest pain, but it was completely gone when he received some sublingual nitroglycerin. Computed tomography scan was negative for pulmonary embolism. The patient may need a bronchoscopy airway examination, should the abnormality on x-ray not improved. White count 19.3, hemoglobin 13.5, hematocrit 43, platelet count 295,000. PTT 69.4. Progress note dated 12/25/2021. 56-year-old male, seen in consultation, 2 days ago. He is seen again today in room 372. The patient came in with chest pain, and is being evaluated by cardiology. In addition, the patient appeared to have a right middle lobe collapse. The more recent x-ray, shows significant improvement. Clinically he is doing well, and feels well. He remains on IV heparin. White count 19.1, hemoglobin 14, hematocrit 43.4, and platelet count is normal. PTT is 61.8. Sodium 134, potassium 4.3, chlorides 102, CO2 25, BUN 18, creatinine 0.73. Blood cultures are negative. IV antibiotics have been discontinued in favor of oral Augmentin. The patient's also on prednisone 20 mg a day. Objective - Vital Signs Vital signs: Vital Signs Temp 98.2 F 12/25/21 08:00 Pulse 73 12/25/21 08:00 Resp 16 12/25/21 08:00 BP 113/64 12/25/21 08:00 Pulse Ox 97 12/25/21 08:00 FiO2 28 12/24/21 15:18 Intake & Output 12/24/21 12/25/21 12/25/21 18:59 06:59 18:59 Intake Total 340.967 120 Output Total 825 1300 1425 Balance -484.033 -1300 -1305 Weight 86.4 kg Intake: Intake, IV Titration 220.967 Amount Heparin Sod,Pork in 0.45% 220.967 NaCl 25,000 unit In 0.45 % NaCl 1 250ml.bag @ 11. 306 UNITS/KG/HR 10 mls/hr IV .Q24H [facility] Rx#: [id number] Oral 120 120 Output: Urine 825 1300 1425 Other: Voiding Method Toilet Urinal Urinal Urinal # Voids 1 - Exam No acute distress, oriented 3. No respiratory distress, use of accessory muscles, or conversational dyspnea. Currently on 2 L. HEENT examination is grossly unremarkable. Neck supple. Full range of motion. No adenopathy thyromegaly or neck vein distention. Cardiovascular examination reveals regular rhythm rate. S1-S2 normal. No S3 or S4. No discernible murmur noted. Heart rate 73 bpm. Lungs reveal mostly normal breath sounds. Minimal rhonchi. Breath sounds are improved. On 2 L, saturation is 97%. Abdomen soft bowel sounds are heard. No masses or tenderness. Extremities are intact. No cyanosis clubbing or edema. Skin is without rash or lesion. Neurologic examination is brief but nonfocal. - Labs CBC & Chem 7: 12/25/21 07:40 12/25/21 07:40 Labs: Abnormal Lab Results - Last 24 Hours (Table) 12/24/21 12/24/21 12/24/21 Range/Units 16:56 17:36 20:18 WBC (3.8-10.6) k/uL Neutrophils # (1.3-7.7) k/uL APTT 31.0 H (22.0-30.0) sec Sodium (137-145) mmol/L Glucose (74-99) mg/dL POC Glucose (mg/dL) 132 H 148 H (70-110) mg/dL 12/24/21 12/25/21 12/25/21 Range/Units 22:22 06:24 07:40 WBC (3.8-10.6) k/uL Neutrophils # (1.3-7.7) k/uL APTT 65.1 H (22.0-30.0) sec Sodium 134 L (137-145) mmol/L Glucose 160 H (74-99) mg/dL POC Glucose (mg/dL) 137 H (70-110) mg/dL 12/25/21 12/25/21 12/25/21 Range/Units 07:40 07:40 11:38 WBC 19.1 H (3.8-10.6) k/uL Neutrophils # 17.0 H (1.3-7.7) k/uL APTT 61.8 H (22.0-30.0) sec Sodium (137-145) mmol/L Glucose (74-99) mg/dL POC Glucose (mg/dL) 156 H (70-110) mg/dL Microbiology - Last 24 Hours (Table) 12/22/21 09:45 Blood Culture - Preliminary Blood No Growth after 48 hours 12/22/21 10:00 Blood Culture - Preliminary Blood No Growth after 48 hours Assessment and Plan Assessment: Acute hypoxemic respiratory failure, secondary to bilateral pneumonia, right greater than left, much improved. Elevated troponins, rule out non-ST segment elevation myocardial infarction. Patient currently being evaluated by cardiology. History of COPD, not particularly active at this time. Prior history of pleurisy. History of multiple sclerosis. History of chronic back pain. History of Crohn's disease. History of anemia. History of migraine cephalgia. Plan: Plan dated 12/23/2021. The patient's on updraft treatments. The patient's also getting Solu-Medrol, as well as azithromycin and Rocephin. Recommend deep breathing, coughing, clearing secretions. A flutter valve will also be of help. No additional rec ommendations are made. Repeat chest x-ray in a day or 2. Prognosis is guarded. We will continue to follow the patient and make recommendations where appropriate. Plan dated 12/24/2021. The patient is having echocardiogram. The patient is currently on Solu-Medrol, azithromycin, and Rocephin. The patient's also on breathing treatments. He's not having much in the way of shortness of breath. A repeat chest x-ray will be ordered for tomorrow. The patient's abnormality on x-ray/CAT scan does not improve, he may benefit from airway examination and bronchoscopy. We will continue to follow. Prognosis is guarded. Plan dated 12/25/2021. The patient is not having any respiratory distress. Solu-Medrol is discontinued in favor of a small dose of prednisone. In addition, azithromycin and Rocephin are discontinued, in favor of Augmentin. The patient is still on IV heparin as per cardiology. Chest x-ray is much improved. Right middle lobe collapse has resolved. The patient is not having any respiratory difficulty whatsoever. We will continue to follow. Time with Patient: Less than 30
[2021-12-25] MEDS: IPRATROPIUM-ALBUTEROL 3 ML NEB INHALATION PRN ×2 (15:59→19:45)
[2021-12-25 16:38] LABS: Glucose,Whole Blood 153 mg/dL (70-110)
[2021-12-25] MEDS: FUROSEMIDE 20 MG TAB PO SCH (17:18)
--- NOTE | 2021-12-25 19:43 | P.PN ---
Subjective This is a 56-year-old gentleman with past medical history of multi-valvular disease, Crohn's, anemia, multiple sclerosis and multiple other medical issues, presented to the ER with worsening shortness of breath and productive cough 3 days,concerned that he had Covid. He had been around his granddaughter who is positive. Reports sharp midsternal chest pain, nonradiating with deep inspiration and cough. Denies diaphoresis chills or syncope. Denies palpitations, lightheadedness or dizziness. Reports cough with minimal sputum production. On admission maintaining O2 sats in the low 90s on 2 L nasal cannula, respiratory rate 18-20. Chest x-ray reported fluid within the minor fissure and posterior pleural effusion, mild right lower lobe infiltrate, posterior pleural effusions present. D-dimer elevated, 0.62. CTA reported no major central pulmonary embolism, significant bronchial impaction of the bronchus intermedius as well as the middle lobe and bilateral lower lobe bronchi with almost complete collapse of the middle lobe and subsegmental atelectasis, consolidation right lower lobe. Afebrile, WBC 15.8. Lactic acid 1.9. Coronav irus not detected. Hemoglobin 12.8, platelets 265. Electrolytes within normal limits. Renal function stable. Blood sugars controlled.Troponins 0.030, 0.156. EKG sinus rhythm. Placed on heparin drip in the ER. Echo 2021 reported EF 45-50%. 12/24/2021 This is a pleasant 56 years old male with multiple medical problems presents with respiratory symptoms secondary to COPD exacerbation also he has evidence of bronchial impaction of bilateral lower lobe and middle lobe. Also has some troponin leak suspicious for non-STEMI and patient is started on heparin drip Echocardiogram today showing evidence of systolic dysfunction with ejection fraction 35-40% with moderate mitral regurgitation, he is currently on IV Lasix 20 mg twice daily, and today, while he kept on Zithromax and ceftriaxone for possible pneumonia although it felt less likely,. Leukocytosis is mainly due to steroid effect. Present the patient is still complaining from exertional dyspnea although he feels better at rest. He still have a little cough, however his chest pain went from 8-9/10 down to 0/10 today. And on exam is still wheezing but he has good air entry and he is saturating well on 2 L oxygen via nasal cannula 12/25/2021 Patient states that he feels better with no coughing, he has minimal leg edema, he has some right hip pain but this is chronic and he had his hip surgery last January and he supposed to follow up with his orthopedic doctor Marquise, in the office rather than seeing him here in the hospital. Patient is hemodynamically stable. Still on leukocytosis secondary to steroid effect. Patient medication change to oral Augmentin, prednisone 20 mg and oral Lasix 20 mg twice daily. Patient is still on heparin drip. We will defer to cardiology team activation management Objective - Vital Signs Vital signs: Vital Signs Temp 98.4 F 12/25/21 16:00 Pulse 88 12/25/21 16:11 Resp 16 12/25/21 16:00 BP 113/68 12/25/21 16:00 Pulse Ox 95 12/25/21 16:00 FiO2 28 12/25/21 15:59 Intake & Output 12/25/21 12/25/21 12/26/21 06:59 18:59 06:59 Intake Total 240 Output Total 1300 1425 Balance -1300 -1185 Weight 86.4 kg Intake: Oral 240 Output: Urine 1300 1425 Stool 0 Urine/Stool Mix 0 Other: Voiding Method Urinal Urinal # Voids 1 0 # Bowel Movements 0 - Exam GENERAL: The patient is alert and oriented x3, not in any acute distress. Well developed, well nourished. HEENT: Pupils are round and equally reacting to light. EOMI. No scleral icterus. No conjunctival pallor. Normocephalic, atraumatic. No pharyngeal erythema. No thyromegaly. CARDIOVASCULAR: S1 and S2 present. No murmurs, rubs, or gallops. -PULMONARY: Chest is clear to auscultation, bilateral scattered wheezing, minimally limited air entry on both sides ABDOMEN: Soft, nontender, nondistended, normoactive bowel sounds. No palpable organomegaly. MUSCULOSKELETAL: No joint swelling or deformity. EXTREMITIES: No cyanosis, clubbing, or pedal edema. NEUROLOGICAL: Gross neurological examination did not reveal any focal deficits. SKIN: No rashes. no petechiae. - Labs CBC & Chem 7: 12/25/21 07:40 12/25/21 07:40 Labs: Abnormal Lab Results - Last 24 Hours (Table) 12/24/21 12/24/21 12/25/21 Range/Units 20:18 22:22 06:24 WBC (3.8-10.6) k/uL Neutrophils # (1.3-7.7) k/uL APTT 65.1 H (22.0-30.0) sec Sodium (137-145) mmol/L Glucose (74-99) mg/dL POC Glucose (mg/dL) 148 H 137 H (70-110) mg/dL 12/25/21 12/25/21 12/25/21 Range/Units 07:40 07:40 07:40 WBC 19.1 H (3.8-10.6) k/uL Neutrophils # 17.0 H (1.3-7.7) k/uL APTT 61.8 H (22.0-30.0) sec Sodium 134 L (137-145) mmol/L Glucose 160 H (74-99) mg/dL POC Glucose (mg/dL) (70-110) mg/dL 12/25/21 12/25/21 Range/Units 11:38 16:37 WBC (3.8-10.6) k/uL Neutrophils # (1.3-7.7) k/uL APTT (22.0-30.0) sec Sodium (137-145) mmol/L Glucose (74-99) mg/dL POC Glucose (mg/dL) 156 H 153 H (70-110) mg/dL Microbiology - Last 24 Hours (Table) 12/22/21 10:00 Blood Culture - Preliminary Blood No Growth after 72 hours 12/22/21 09:45 Blood Culture - Preliminary Blood No Growth after 72 hours Assessment and Plan Assessment: Acute COPD exacerbation associated with bronchial impaction of bilateral lower lobe and middle lobe areas. Nonischemic cardiomyopathy with ejection fraction 35-40% Elevated troponin suspicious forSTEMI converted on heparin drip Possible pneumonia but felt less likely. Leukocytosis, reactive secondary to steroid effect Moderate mitral regurgitation. Plan: This is a pleasant 56 male with COPD, CHF and colostomy and possible pneumonia. Continue Zithromax and ceftriaxone Patient is on anticoagulation with heparin drip, with cardiology team recommendation. We will defer that to cannulation management to cardiology team Continue sotalol 60 mg, IV Lasix 20 mg added today. Pulmonary cartilage team on the case. Labs and medication were reviewed.. Continue same treatment. Continue with symptomatic treatment. Resume home medication. Monitor lytes and vitals. DVT and GI prophylaxis. Further recommendations as per clinical course of the patient DVT prophylaxis: heparin GI Prophylaxis: Ppi PT/OT: Ordered and Pending Prognosis is guarded
[2021-12-25 20:09] LABS: Glucose,Whole Blood 140 mg/dL (70-110)
[2021-12-25 20:40] VITALS: RESP 18
[2021-12-25] MEDS: AMOXIC-POT CLAV 875-125MG 1 EACH TAB PO SCH (21:34)
[2021-12-25] MEDS: MIRTAZAPINE 15 MG TAB PO SCH (21:36)
[2021-12-25] MEDS: QUEtiapine 50 MG TAB PO SCH (21:37)
[2021-12-25] MEDS: HEPARIN SOD,PORK IN 0.45% NACL 25,000 UNIT in 0.45% NACL 1 250ML.BAG IV SCH (21:37)
[2021-12-26] MEDS: DULoxetine HCL 20 MG CAPSULE.DR PO SCH ×2 (01:07→08:02)
[2021-12-26] MEDS: HYDROcodone/APAP 7.5-325MG 1 EACH TAB PO PRN (04:49)
[2021-12-26 06:27] LABS: Glucose,Whole Blood 133 mg/dL (70-110)
[2021-12-26] MEDS: carvediloL 3.125 MG TAB PO SCH (06:31)
[2021-12-26] MEDS: INSULIN ASPART (NovoLOG) 100 UNIT/ML VIAL SQ SCH (06:31)
[2021-12-26] MEDS: PANTOPRAZOLE 40 MG TABLET PO SCH (06:31)
[2021-12-26 08:01] VITALS: BP 130/73; PULSE 63; TEMP 97.9
[2021-12-26] MEDS: AMOXIC-POT CLAV 875-125MG 1 EACH TAB PO SCH (08:02)
[2021-12-26] MEDS: lisinopriL 5 MG TAB PO SCH (08:02)
[2021-12-26] MEDS: FUROSEMIDE 20 MG TAB PO SCH (08:02)
[2021-12-26] MEDS: BACLOFEN 10 MG TAB PO SCH (08:02)
[2021-12-26] MEDS: MORPHINE SULFATE ER 15 MG TABLET PO SCH (08:02)
[2021-12-26] MEDS: PREGABALIN 75 MG CAP PO SCH (08:02)
[2021-12-26] MEDS: SPIRONOLACTONE 25 MG TAB PO SCH (08:03)
[2021-12-26 08:43] LABS: Basophils # (A) 0.2 k/uL (0-0.2); Basophils % (A) 1 %; Eosinophils # (A) 0.1 k/uL (0-0.7); Eosinophils % (A) 0 %; HGB 15.5 gm/dL (13.0-17.5); Lymphocytes # (A) 3.1 k/uL (1.0-4.8); Lymphocytes % (A) 17 %; MCHC 32.3 g/dL (31.0-37.0); MCV 99.3 fL (80.0-100.0); Mean Platelet Volume 8.9; Monocytes % (A) 5 %; Neutrophils # (A) 13.8 k/uL (1.3-7.7); Neutrophils % (A) 74 %; Platelet Count 325 k/uL (150-450); RBC 4.84 m/uL (4.30-5.90); RDW 12.8 % (11.5-15.5); WBC 18.7 k/uL (3.8-10.6)
[2021-12-26 08:57] LABS: African American GFR (CKD) >90 (>60 ml/min/1.73 sqM); Anion Gap 7 mmol/L; Blood Urea Nitrogen 24 mg/dL (9-20); Calcium 8.9 mg/dL (8.4-10.2); Carbon Dioxide 28 mmol/L (22-30); Chloride 101 mmol/L (98-107); Glucose 109 mg/dL (74-99); Non-African American GFR(CKD) 85 (>60 ml/min/1.73 sqM); Potassium 4.3 mmol/L (3.5-5.1); Sodium 136 mmol/L (137-145)
[2021-12-26] MEDS ORDERED: predniSONE 20 MG TAB PO SCH (09:00)
[2021-12-26 11:41] LABS: Glucose,Whole Blood 94 mg/dL (70-110)
--- NOTE | 2021-12-26 12:44 | P.PN ---
Subjective This is a 56-year-old male with a past medical history significant for nonischemic cardiomyopathy and chronic back and neck pain. Patient follows in the office with Dr. Geronimo. We have been asked to see the patient in consultation for chest pain. Patient presented to the hospital with a chief complaint of chest pain and shortness of breath. Chest x-ray and CT findings are suggestive of multiple lesions in the lung. He has been treated with multiple antibiotics for pneumonia. Pulmonary following for pneumonia. Repeat echo revealed an ejection fraction of about 35-40% with generalized hypokinesia. He was diuresed with IV Lasix and now transitioned to PO Lasix 20mg BID. He is seen and examined at bedside, no acute distress. Breathing has significantly improved since admission. Vital signs are stable. Patient with -1555mL fluid balance over the past 24 hours. Decrease in weight from admission. Renal function is stable. PHYSICAL EXAM: VITAL SIGNS: Reviewed. GENERAL: Well-developed in no acute distress. HEENT: Neck supple. No JVD LUNGS: Respirations even and unlabored. Lungs diminished bilaterally HEART: Regular rate and rhythm. S1 and S2 heard. ABDOMEN: Soft. Nondistended. Nontender. EXTREMITIES: Normal range of motion. No clubbing or cyanosis. Peripheral pulses intact. No lower extremity edema NEUROLOGIC: Awake and alert. Oriented x 3. ASSESSMENT: Shortness of breath Pneumonia Chest pain, likely secondary to above Acute on chronic heart failure with reduced ejection fraction Abnormal troponins, ACS unlikely Nonischemic cardiomyopathy, cardiac cath in 2016 with normal coronary arteries Nicotine dependence PLAN: Increase Coreg to 6.25mg BID Continue PO Lasix 20mg BID Continue lisinopril 5mg daily and spironolactone 25 mg daily From a cardiology perspective, patient is stable. Ok to discharge when cleared by primary and other consultants Follow up outpatient with Dr. Geronimo. Nurse practitioner note has been reviewed by physician. Signing provider agrees with the documented findings, assessment, and plan of care. Objective - Vital Signs Vital signs: Vital Signs Temp 97.9 F 12/26/21 08:00 Pulse 63 12/26/21 08:00 Resp 18 12/26/21 08:00 BP 130/73 12/26/21 08:00 Pulse Ox 93 L 12/26/21 08:00 FiO2 28 12/25/21 15:59 Intake & Output 12/25/21 12/26/21 12/26/21 18:59 06:59 18:59 Intake Total 240 120 336.4 Output Total 1425 300 480 Balance -1185 -180 -143.6 Intake: Intake, IV Titration 218.4 Amount Heparin Sod,Pork in 0.45% 218.4 NaCl 25,000 unit In 0.45 % NaCl 1 250ml.bag @ 11. 306 UNITS/KG/HR 10 mls/hr IV .Q24H [facility] Rx#: [id number] Oral 240 120 118 Output: Urine 1425 300 480 Stool 0 Urine/Stool Mix 0 Other: Voiding Method Urinal Urinal # Voids 0 # Bowel Movements 0 - Labs CBC & Chem 7: 12/26/21 07:58 12/26/21 07:58 Labs: Abnormal Lab Results - Last 24 Hours (Table) 12/25/21 12/25/21 12/26/21 Range/Units 16:37 20:07 06:23 WBC (3.8-10.6) k/uL Neutrophils # (1.3-7.7) k/uL APTT (22.0-30.0) sec Sodium (137-145) mmol/L BUN (9-20) mg/dL Glucose (74-99) mg/dL POC Glucose (mg/dL) 153 H 140 H 133 H (70-110) mg/dL 12/26/21 12/26/21 12/26/21 Range/Units 07:58 07:58 07:58 WBC 18.7 H (3.8-10.6) k/uL Neutrophils # 13.8 H (1.3-7.7) k/uL APTT 124.3 H* (22.0-30.0) sec Sodium 136 L (137-145) mmol/L BUN 24 H (9-20) mg/dL Glucose 109 H (74-99) mg/dL POC Glucose (mg/dL) (70-110) mg/dL Microbiology - Last 24 Hours (Table) 12/22/21 10:00 Blood Culture - Preliminary Blood No Growth after 96 hours 12/22/21 09:45 Blood Culture - Preliminary Blood No Growth after 96 hours
--- NOTE | 2021-12-26 13:36 | P.DS ---
Providers Date of admission: 12/23/21 14:38 Expected date of discharge: 12/26/21 Attending physician: Mack Fox Consults: 12/22/21 12:32 Consult Physician Routine Consulting Provider: Jose Leal Consult Reason/Comments: Hypoxia, COPD exacerbation, pneumonia Do you want consulting provider notified?: Yes, Notify in am 12/23/21 09:52 Consult Physician Routine Consulting Provider: Nicholas Garcia Consult Reason/Comments: elevated troponin Do you want consulting provider notified?: Yes Primary care physician: Mack Fox Hospital Course: Final Diagnoses: Acute bilateral pneumonia, right greater than left, community-acquired Acute hypoxic respiratory failure secondary to the above Atypical chest pain, mildly elevated initial troponin, rule out NSTEMI , Cardiology following.. Nonischemic cardiomyopathy with EF 35-40% Moderate mitral regurgitation COPD, stable Crohn's disease Multiple sclerosis Chronic nicotine dependence Chronic back pain, patient has a pain contract with Dr. Carlin Crohn's luther Ongoing Nicotine dependence Marijuana use Hospital course:This is a 56-year-old gentleman with past medical history of multi-valvular disease, Crohn's, anemia, multiple sclerosis and multiple other medical issues, presented to the ER with worsening shortness of breath and productive cough 3 days,concerned that he had Covid. He had been around his granddaughter who is positive. Reports sharp midsternal chest pain, nonradiating with deep inspiration and cough. Denies diaphoresis chills or syncope. Denies palpitations, lightheadedness or dizziness. Reports cough with minimal sputum production. On admission maintaining O2 sats in the low 90s on 2 L nasal cannula, respiratory rate 18-20. Chest x-ray reported fluid within the minor fissure and posterior pleural effusion, mild right lower lobe infiltrate, posterior pleural effusions present. D-dimer elevated, 0.62. CTA reported no major central pulmonary embolism, significant bronchial impaction of the bronchus intermedius as well as the middle lobe and bilateral lower lobe bronchi with almost complete collapse of the middle lobe and subsegmental atelectasis, consolidation right lower lobe. Afebrile, WBC 15.8. Lactic acid 1.9. Coronavirus not detected. Hemoglobin 12.8, platelets 265. Electrolytes within normal limits. Renal function stable. Blood sugars controlled.Troponins 0.030, 0.156. EKG sinus rhythm. Placed on heparin drip in the ER. Echo 2021 reported EF 45-50%. Evaluated by pulmonary and cardiology. Maintained on systemic steroids, IV antibiotics and nebulized bronchodilators. Anticoagulated on IV heparin drip and treated with sotalol, diuresed with IV Lasix, transitioned to oral. Denies chest pain, palpitations or shortness of breath. BUN 24, creatinine 0.98. Maintaining O2 sats in the 90s on room air. Significant clinical improvement. Cleared by pulmonary for discharge. Patient will be discharged home today in stable condition with guarded prognosis, pending final DC recommendations/anticoagulation from cardiology. The impression and plan of care has been dictated as directed. : I performed a history and examination of this patient, discussed the same with the dictator. I agree with the dictator's note ,documented as a scribe. Any additional findings or plans will be noted. Patient Condition at Discharge: Stable Plan - Discharge Summary Discharge Rx Participant: No New Discharge Prescriptions: New Furosemide [Lasix] 20 mg PO BID@0900,1600 #60 tab carvediloL [Coreg] 6.25 mg PO BID-W/MEALS #60 tablet Albuterol Inhaler [Ventolin Hfa Inhaler] 2 puff INHALATION QID PRN #1 inh PRN Reason: Shortness Of Breath Spironolactone [Aldactone] 25 mg PO DAILY #30 tab Amoxic-Pot Clav 875-125Mg [Augmentin 875-125] 1 each PO Q12HR #10 tab predniSONE 10 mg PO DIRECTED #9 tab lisinopriL [Zestril] 5 mg PO DAILY #30 tab Continue Baclofen [Lioresal] 20 mg PO BID HYDROcodone/APAP 7.5-325MG [[place] 7.5-325] 1 tab PO BID PRN PRN Reason: Pain Mirtazapine [Remeron] 30 mg PO HS Pantoprazole Sodium [Protonix] 40 mg PO DAILY Morphine Sulfate [Ms Contin] 15 mg PO Q12HR QUEtiapine [SEROquel] 50 mg PO HS rOPINIRole HCL [Requip] 1 mg PO HS DULoxetine HCL [Cymbalta] 20 mg PO BID SUMAtriptan succinate [Imitrex] 50 mg PO BID PRN PRN Reason: Migraine Headache Pregabalin 150 mg PO BID Discharge Medication List Baclofen [Lioresal] 20 mg PO BID 12/21/15 [History] HYDROcodone/APAP 7.5-325MG [[place] 7.5-325] 1 tab PO BID PRN 04/17/20 [History] Mirtazapine [Remeron] 30 mg PO HS 04/17/20 [History] Pantoprazole Sodium [Protonix] 40 mg PO DAILY 04/17/20 [History] Morphine Sulfate [Ms Contin] 15 mg PO Q12HR 01/28/21 [History] Pregabalin 150 mg PO BID 09/14/21 [History] QUEtiapine [SEROquel] 50 mg PO HS 09/14/21 [History] SUMAtriptan succinate [Imitrex] 50 mg PO BID PRN 09/14/21 [History] rOPINIRole HCL [Requip] 1 mg PO HS 09/17/21 [History] DULoxetine HCL [Cymbalta] 20 mg PO BID 12/22/21 [History] Albuterol Inhaler [Ventolin Hfa Inhaler] 2 puff INHALATION QID PRN #1 inh 12/26/21 [Rx] Amoxic-Pot Clav 875-125Mg [Augmentin 875-125] 1 each PO Q12HR #10 tab 12/26/21 [Rx] Furosemide [Lasix] 20 mg PO BID@0900,1600 #60 tab 12/26/21 [Rx] Spironolactone [Aldactone] 25 mg PO DAILY #30 tab 12/26/21 [Rx] carvediloL [Coreg] 6.25 mg PO BID-W/MEALS #60 tablet 12/26/21 [Rx] lisinopriL [Zestril] 5 mg PO DAILY #30 tab 12/26/21 [Rx] predniSONE 10 mg PO DIRECTED #9 tab 12/26/21 [Rx] Follow up Appointment(s)/Referral(s): Mack Fox DO [Primary Care Provider] - 3 Days Jimi Geronimo MD [STAFF PHYSICIAN] - 1 Week Ambulatory/Diagnostic Orders: Complete Blood Count w/diff [LAB.AMB] Time Frame: 3 Days, Location: None Selected Patient Instructions/Handouts: COPD (Chronic Obstructive Pulmonary Disease) (DC), High Troponin Levels (ED) Discharge Disposition: HOME SELF-CARE
--- NOTE | 2021-12-26 14:56 | P.PN ---
Subjective Progress Note Date: 12/26/21 56-year-old male who comes into the emergency department, on December 22, complaining of increasing shortness of breath. The patient states for the last 2 or 3 days, he's had increasing shortness of breath, chest congestion, cough, and green phlegm production. No fever or chills. No chest pain. The patient has a history of COPD, multiple sclerosis, Crohn's disease, and anemia. I saw him a couple years back with pleurisy. The patient had a chest x-ray which showed an abnormality particularly in the right middle lobe. Currently, the patient is feeling only mildly improved. He does have shortness of breath, and a congested wet cough. Currently, he's on 2 L nasal cannula, with saturations of 95%. White count 15.8, hemoglobin 12.8, hematocrit 39.7, and a platelet count of 265,000. D-dimer was 0.62. Sodium 140, potassium 3.8, chlorides 107, CO2 27, BUN 11, creatinine 0.73. Troponins were 0.156 and 0.043. Testing for coronavirus was negative. Chest x-ray shows fluid within the minor fissure, and mild right lower lobe infiltrate. CT angiogram was negative for pulmonary embolism, but showed significant bronchial impaction the bronchus intermedius as well as the middle lobe and bilateral lower lobe bronchi, with complete collapse of the middle lobe subsegmental atelectasis consolidation of the right lower lobe. There is also small atelectasis/consolidation seen in the posterior a spect of the left lung base. Progress note dated 12/24/2021. 56-year-old male seen yesterday in consultation. He came into the emergency department complaining of increasing shortness of breath. The patient had an elevated troponin level, remains on IV heparin. An echocardiogram was ordered for today. We saw the patient for possible right middle lobe collapse, versus pneumonia. The patient did have an episode of chest pain, but it was completely gone when he received some sublingual nitroglycerin. Computed tomography scan was negative for pulmonary embolism. The patient may need a bronchoscopy airway examination, should the abnormality on x-ray not improved. White count 19.3, hemoglobin 13.5, hematocrit 43, platelet count 295,000. PTT 69.4. Progress note dated 12/25/2021. 56-year-old male, seen in consultation, 2 days ago. He is seen again today in room 372. The patient came in with chest pain, and is being evaluated by cardiology. In addition, the patient appeared to have a right middle lobe collapse. The more recent x-ray, shows significant improvement. Clinically he is doing well, and feels well. He remains on IV heparin. White count 19.1, hemoglobin 14, hematocrit 43.4, and platelet count is normal. PTT is 61.8. Sodium 134, potassium 4.3, chlorides 102, CO2 25, BUN 18, creatinine 0.73. Blood cultures are negative. IV antibiotics have been discontinued in favor of oral Augmentin. The patient's also on prednisone 20 mg a day. 12/27/2021,I'm seeing the patient for a follow-up. The patient is feeling well. No specific complaints. The patient most likely had an aspiration right lung pneumonia. The patient is known to have multiple sclerosis. The patient is clinically improved and the repeat chest x-ray showed improvement in the right middle lobe atelectasis. On today's evaluation, the white cell count at 18.7, slightly improved compared to yesterday and the patient has a white cell count of 15.5. BUN is at 24 with a creatinine of 0.9 and the patient is currently on room air oxygen. No other significant events otherwise for now. No chest pain. No angina. No palpitations. No ongoing episodes of aspiration. Objective - Vital Signs Vital signs: Vital Signs Temp 97.9 F 12/26/21 08:00 Pulse 63 12/26/21 08:00 Resp 18 12/26/21 08:00 BP 130/73 12/26/21 08:00 Pulse Ox 93 L 12/26/21 08:00 FiO2 28 12/25/21 15:59 Intake & Output 12/25/21 12/26/21 12/26/21 18:59 06:59 18:59 Intake Total 240 120 336.4 Output Total 1425 300 480 Balance -1185 -180 -143.6 Intake: Intake, IV Titration 218.4 Amount Heparin Sod,Pork in 0.45% 218.4 NaCl 25,000 unit In 0.45 % NaCl 1 250ml.bag @ 11. 306 UNITS/KG/HR 10 mls/hr IV .Q24H [facility] Rx#: [id number] Oral 240 120 118 Output: Urine 1425 300 480 Stool 0 Urine/Stool Mix 0 Other: Voiding Method Urinal Urinal # Voids 0 # Bowel Movements 0 - Exam No acute distress, oriented 3. No respiratory distress, use of accessory muscles, or conversational dyspnea. Currently onroom air oxygen HEENT examination is grossly unremarkable. Neck supple. Full range of motion. No adenopathy thyromegaly or neck vein distention. Cardiovascular examination reveals regular rhythm rate. S1-S2 normal. No S3 or S4. No discernible murmur noted. Lungs reveal mostly normal breath sounds. Minimal rhonchi. Breath sounds are improved. On 2 L, saturation is 97%. Abdomen soft bowel sounds are heard. No masses or tenderness. Extremities are intact. No cyanosis clubbing or edema. Skin is without rash or lesion. Neurologic examination is brief but nonfocal. - Labs CBC & Chem 7: 12/26/21 07:58 12/26/21 07:58 Labs: Abnormal Lab Results - Last 24 Hours (Table) 12/25/21 12/25/21 12/25/21 Range/Units 11:38 16:37 20:07 WBC (3.8-10.6) k/uL Neutrophils # (1.3-7.7) k/uL APTT (22.0-30.0) sec Sodium (137-145) mmol/L BUN (9-20) mg/dL Glucose (74-99) mg/dL POC Glucose (mg/dL) 156 H 153 H 140 H (70-110) mg/dL 12/26/21 12/26/21 12/26/21 Range/Units 06:23 07:58 07:58 WBC 18.7 H (3.8-10.6) k/uL Neutrophils # 13.8 H (1.3-7.7) k/uL APTT (22.0-30.0) sec Sodium 136 L (137-145) mmol/L BUN 24 H (9-20) mg/dL Glucose 109 H (74-99) mg/dL POC Glucose (mg/dL) 133 H (70-110) mg/dL 12/26/21 Range/Units 07:58 WBC (3.8-10.6) k/uL Neutrophils # (1.3-7.7) k/uL APTT 124.3 H* (22.0-30.0) sec Sodium (137-145) mmol/L BUN (9-20) mg/dL Glucose (74-99) mg/dL POC Glucose (mg/dL) (70-110) mg/dL Microbiology - Last 24 Hours (Table) 12/22/21 10:00 Blood Culture - Preliminary Blood No Growth after 72 hours 12/22/21 09:45 Blood Culture - Preliminary Blood No Growth after 72 hours Assessment and Plan Plan: Acute hypoxemic respiratory failure, secondary to bilateral pneumonia, right greater than left, much improved. repeat chest x-ray showed improvement in the right midlung atelectasis/pneumonia and the patient's chest x-ray was done yesterday. Clinically, the patient is improved and the patient is currently on room air oxygen. Elevated troponins, rule out non-ST segment elevation myocardial infarction. Patient currently being evaluated by cardiology. History of COPD, not particularly active at this time. Prior history of pleurisy. History of multiple sclerosis. History of chronic back pain. History of Crohn's disease. History of anemia. History of migraine cephalgia. Plan: we'll discharge this patient home today on a course of Augmentin 875 mg by mouth twice a day and a short course of prednisone burst taper Albuterol HFA on an as-needed basis Aspiration precautions Resume home medications Follow-up chest x-ray within the next 2-3 weeks to make sure the right midlung remains quite expanded. This can be done to the primary care physician's office.
[2021-12-26] MEDS ORDERED: carvediloL 6.25 MG TAB PO SCH (17:30)
== END 2021-12-26 12:30 | disposition home or self-care (01) | DRG 193 ==
LOC: EC 06:54 → 3SCARD 12:34 → OBSVTOIN 12-23 14:38
PROVIDERS: ADMIT Family Medicine; ATTEND Family Medicine
DX: J18.9 Pneumonia, unspecified organism (principal); J96.01 Acute respiratory failure with hypoxia; I21.4 Non-ST elevation (NSTEMI) myocardial infarction; J44.0 Chronic obstructive pulmonary disease with (acute) lower respiratory infection; J44.1 Chronic obstructive pulmonary disease with (acute) exacerbation; J98.11 Atelectasis; K50.90 Crohn's disease, unspecified, without complications; I42.8 Other cardiomyopathies; I50.22 Chronic systolic (congestive) heart failure; Z20.822 Contact with and (suspected) exposure to COVID-19; Z28.310 Unvaccinated for COVID-19; F17.210 Nicotine dependence, cigarettes, uncomplicated; F32.A Depression, unspecified; G35 Multiple sclerosis; H91.92 Unspecified hearing loss, left ear; G89.29 Other chronic pain; I34.0 Nonrheumatic mitral (valve) insufficiency; T38.0X5A Adverse effect of glucocorticoids and synthetic analogues, initial encounter; D72.829 Elevated white blood cell count, unspecified; Z79.52 Long term (current) use of systemic steroids; Z87.09 Personal history of other diseases of the respiratory system; Z79.899 Other long term (current) drug therapy; Z82.3 Family history of stroke; Z83.3 Family history of diabetes mellitus; Z80.9 Family history of malignant neoplasm, unspecified; Z82.49 Family history of ischemic heart disease and other diseases of the circulatory system; M54.2 Cervicalgia; Z98.890 Other specified postprocedural states; Z98.1 Arthrodesis status; Z86.14 Personal history of Methicillin resistant Staphylococcus aureus infection
CPT/HCPCS: 36415; 71046; 71275; 80048; 80053; 83605; 83735; 83880; 84145; 84484; 85025; 85379; 85610; 85730; 87040; 87635; 93005; 93306; 94640; 94760; 96361; 96365; 96375; 99291

== ENCOUNTER 2021-12-30 14:43 | Emergency (ER) | payer MEDICARE ==
[2021-12-30 16:00] VITALS: TEMP 97.8
[2021-12-30] MEDS ORDERED: FUROSEMIDE 10 MG/ML 4 ML VIAL IV STA (19:35)
[2021-12-30] MEDS ORDERED: IPRATROPIUM-ALBUTEROL 3 ML NEB INHALATION STA (19:36)
[2021-12-30 20:30] LABS: Basophils # (A) 0.1 k/uL (0-0.2); Basophils % (A) 1 %; Eosinophils # (A) 0.2 k/uL (0-0.7); Eosinophils % (A) 2 %; HCT 42.3 % (39.0-53.0); HGB 13.9 gm/dL (13.0-17.5); Lymphocytes # (A) 2.4 k/uL (1.0-4.8); Lymphocytes % (A) 18 %; MCH 31.8 pg (25.0-35.0); MCHC 32.8 g/dL (31.0-37.0); MCV 96.9 fL (80.0-100.0); Monocytes # (A) 1.1 k/uL (0-1.0); Monocytes % (A) 8 %; Neutrophils # (A) 8.8 k/uL (1.3-7.7); Neutrophils % (A) 69 %; Platelet Count 327 k/uL (150-450); RBC 4.36 m/uL (4.30-5.90); RDW 12.7 % (11.5-15.5); WBC 12.8 k/uL (3.8-10.6)
--- NOTE | 2021-12-30 20:36 | ED ---
Extremity Problem HPI - General Chief complaint: Extremity Problem,Nontraumatic Stated complaint: Recheck-swelling in extremities Time Seen by Provider: 12/30/21 19:30 Source: patient, RN notes reviewed Mode of arrival: ambulatory Limitations: no limitations - History of Present Illness Initial comments: This is a pleasant 56-year-old male with a history of recent pneumonia and hospital admission. Patient states he was also diagnosed with congestive heart failure. Patient presents today complaining of bilateral leg edema as well as a sensation of edema in his gumline. Patient denying any chest pain but does have some shortness of breath. Patient states she is taking Lasix 20 mg twice daily. Denies any chest pain. No fever. No headache, no fever or chills, no changes in vision or hearing, no sore throat or difficulty with speech, no neck pain, no chest pain, no abdominal pain, no nausea or vomiting, no changes in urination or bowel movements, no numbness or tingling, no extremity pain, no skin rashes or lesions. - Related Data Home Medications Medication Instructions Recorded Confirmed Baclofen [Lioresal] 20 mg PO BID 12/21/15 12/22/21 HYDROcodone/APAP 7.5-325MG [[place] 1 tab PO BID PRN 04/17/20 12/22/21 7.5-325] Mirtazapine [Remeron] 30 mg PO HS 04/17/20 12/22/21 Pantoprazole Sodium [Protonix] 40 mg PO DAILY 04/17/20 12/22/21 Morphine Sulfate [Ms Contin] 15 mg PO Q12HR 01/28/21 12/22/21 Pregabalin 150 mg PO BID 09/14/21 12/22/21 QUEtiapine [SEROquel] 50 mg PO HS 09/14/21 12/22/21 SUMAtriptan succinate [Imitrex] 50 mg PO BID PRN 09/14/21 12/22/21 rOPINIRole HCL [Requip] 1 mg PO HS 09/17/21 12/22/21 DULoxetine HCL [Cymbalta] 20 mg PO BID 12/22/21 12/22/21 Previous Rx's Medication Instructions Recorded Albuterol Inhaler [Ventolin Hfa 2 puff INHALATION QID PRN #1 inh 12/26/21 Inhaler] Amoxic-Pot Clav 875-125Mg 1 each PO Q12HR #10 tab 12/26/21 [Augmentin 875-125] Furosemide [Lasix] 20 mg PO BID@0900,1600 #60 tab 12/26/21 Spironolactone [Aldactone] 25 mg PO DAILY #30 tab 12/26/21 carvediloL [Coreg] 6.25 mg PO BID-W/MEALS #60 tablet 12/26/21 lisinopriL [Zestril] 5 mg PO DAILY #30 tab 12/26/21 predniSONE 10 mg PO DIRECTED #9 tab 12/26/21 Losartan [Cozaar] 25 mg PO DAILY #30 tab 12/30/21 Allergies Allergy/AdvReac Type Severity Reaction Status Date / Time No Known Allergies Allergy Verified 12/30/21 15:59 Review of Systems ROS Statement: Those systems with pertinent positive or pertinent negative responses have been documented in the HPI. ROS Other: All systems not noted in ROS Statement are negative. Past Medical History Past Medical History: Heart Failure, COPD, Eye Disorder, Musculoskeletal Disorder, Neurologic Disorder Additional Past Medical History / Comment(s): Multiple sclerosis USES A CANE TO AMBULATE, falls. has had in past occasional DOUBLE VISION. CHRONIC BACK NECK PAIN. HAD SPINAL STIMULATOR, THEN REMOVED; Migraine headache. Crohn's disease.lt ear [place] History of Any Multi-Drug Resistant Organisms: MRSA Date of last positivie culture/infection: 2014 MDRO Source:: lower back Past Surgical History: Appendectomy, Back Surgery, Bowel Resection, Hernia Repair Additional Past Surgical History / Comment(s): CERVICAL FUSION. SPINAL STIMULATOR implantation, revision and removal. FOREIGN BODY REMOVED RT CHEST WALL. 10/18/2015 wire removed from back. (from stimulator) Past Anesthesia/Blood Transfusion Reactions: Previous Problems w/ Anesthesia Additional Past Anesthesia/Blood Transfusion Reaction / Comment(s): STATES TAKES A LONG TIME TO WAKE UP Past Psychological History: Depression Smoking Status: Current every day smoker Past Alcohol Use History: Occasional Past Drug Use History: Marijuana - Past Family History Father Family Medical History: Cancer, Diabetes Mellitus Additional Family Medical History / Comment(s): CABG-TRIPLE BYPASS, Mother Family Medical History: Cancer, CVA/TIA, Diabetes Mellitus Additional Family Medical History / Comment(s): Stroke Brother(s) Additional Family Medical History / Comment(s): cardiomyopathy General Exam Limitations: no limitations General appearance: alert, in no apparent distress Head exam: Present: atraumatic, normocephalic, normal inspection Eye exam: Present: normal appearance, PERRL, EOMI. Absent: scleral icterus, conjunctival injection, periorbital swelling ENT exam: Present: normal exam, mucous membranes moist, normal external ear exam Neck exam: Present: normal inspection. Absent: tenderness, meningismus, lymphadenopathy Respiratory exam: Present: wheezes, rales. Absent: normal lung sounds bilaterally, respiratory distress, rhonchi, stridor, chest wall tenderness, acc essory muscle use, decreased breath sounds, prolonged expiratory Cardiovascular Exam: Present: regular rate, normal rhythm, normal heart sounds. Absent: systolic murmur, diastolic murmur, rubs, gallop, clicks GI/Abdominal exam: Present: soft, normal bowel sounds. Absent: distended, tenderness, guarding, rebound, rigid Extremities exam: Present: normal inspection, full ROM, normal capillary refill, pedal edema. Absent: tenderness, joint swelling, calf tenderness Back exam: Present: normal inspection Neurological exam: Present: alert, oriented X3, CN II-XII intact Psychiatric exam: Present: normal affect, normal mood Skin exam: Present: warm, dry, intact, normal color. Absent: rash Course Vital Signs 12/30/21 12/30/21 12/30/21 15:56 20:36 20:42 Temperature 97.8 F Pulse Rate 83 77 77 Respiratory 18 Rate Blood Pressure 129/79 O2 Sat by Pulse 97 Oximetry 12/30/21 21:37 Temperature Pulse Rate 64 Respiratory 18 Rate Blood Pressure 108/65 O2 Sat by Pulse 93 L Oximetry - Reevaluation(s) Reevaluation #1: 12/30/21 23:31 Patient reevaluated and is resting comfortably in bed. Patient states he feels better. He states his mouth feels better as well. However he states when he woke up earlier this morning it was much worse. He denies any airway problems. There was no difficulty breathing. Patient was started on lisinopril here. This does raise a suspicion of mild angioedema. Although the patient has no symptoms at discharge. I'm going to have the patient hold this medication. We'll start the patient on angiotensin II receptor mac. Patient does not appear to have any infectious process. Chest x-ray is improved. BNP is improved. Patient in no distress at discharge. The case was discussed in detail with ED attending physician. Presentation, findings, treatment plan discussed in detail. Patient was told to return to the ER for any signs or symptoms worsen. Told to return immediately if any other problems arise. All questions answered. Treatment plan discussed. Patient in agreement Every effort has been made to ensure accuracy of this dictation. However, due to the limitations of electronic medical records and dictation devices, errors in charting still occur. [facility]. Solorio Medical Decision Making - Lab Data Result diagrams: 12/30/21 20:17 12/30/21 20:17 Lab Results 12/30/21 12/30/21 12/30/21 Range/Units 20:17 20:17 20:17 WBC 12.8 H (3.8-10.6) k/uL RBC 4.36 (4.30-5.90) m/uL Hgb 13.9 (13.0-17.5) gm/dL Hct 42.3 (39.0-53.0) % MCV 96.9 (80.0-100.0) fL MCH 31.8 (25.0-35.0) pg MCHC 32.8 (31.0-37.0) g/dL RDW 12.7 (11.5-15.5) % Plt Count 327 (150-450) k/uL MPV 8.0 Neutrophils % 69 % Lymphocytes % 18 % Monocytes % 8 % Eosinophils % 2 % Basophils % 1 % Neutrophils # 8.8 H (1.3-7.7) k/uL Lymphocytes # 2.4 (1.0-4.8) k/uL Monocytes # 1.1 H (0-1.0) k/uL Eosinophils # 0.2 (0-0.7) k/uL Basophils # 0.1 (0-0.2) k/uL Sodium 133 L (137-145) mmol/L Potassium 4.3 (3.5-5.1) mmol/L Chloride 100 (98-107) mmol/L Carbon Dioxide 27 (22-30) mmol/L Anion Gap 6 mmol/L BUN 21 H (9-20) mg/dL Creatinine 0.89 (0.66-1.25) mg/dL Est GFR (CKD-EPI)AfAm >90 (>60 ml/min/1.73 sqM) Est GFR (CKD-EPI)NonAf >90 (>60 ml/min/1.73 sqM) Glucose 152 H (74-99) mg/dL Calcium 9.2 (8.4-10.2) mg/dL Magnesium 2.0 (1.6-2.3) mg/dL Total Bilirubin 0.2 (0.2-1.3) mg/dL AST 22 (17-59) U/L ALT 27 (4-49) U/L Alkaline Phosphatase 120 (38-126) U/L Troponin I <0.012 (0.000-0.034) ng/mL NT-Pro-B Natriuret Pep pg/mL Total Protein 6.2 L (6.3-8.2) g/dL Albumin 3.7 (3.5-5.0) g/dL 12/30/21 Range/Units 20:17 WBC (3.8-10.6) k/uL RBC (4.30-5.90) m/uL Hgb (13.0-17.5) gm/dL Hct (39.0-53.0) % MCV (80.0-100.0) fL MCH (25.0-35.0) pg MCHC (31.0-37.0) g/dL RDW (11.5-15.5) % Plt Count (150-450) k/uL MPV Neutrophils % % Lymphocytes % % Monocytes % % Eosinophils % % Basophils % % Neutrophils # (1.3-7.7) k/uL Lymphocytes # (1.0-4.8) k/uL Monocytes # (0-1.0) k/uL Eosinophils # (0-0.7) k/uL Basophils # (0-0.2) k/uL Sodium (137-145) mmol/L Potassium (3.5-5.1) mmol/L Chloride (98-107) mmol/L Carbon Dioxide (22-30) mmol/L Anion Gap mmol/L BUN (9-20) mg/dL Creatinine (0.66-1.25) mg/dL Est GFR (CKD-EPI)AfAm (>60 ml/min/1.73 sqM) Est GFR (CKD-EPI)NonAf (>60 ml/min/1.73 sqM) Glucose (74-99) mg/dL Calcium (8.4-10.2) mg/dL Magnesium (1.6-2.3) mg/dL Total Bilirubin (0.2-1.3) mg/dL AST (17-59) U/L ALT (4-49) U/L Alkaline Phosphatase (38-126) U/L Troponin I (0.000-0.034) ng/mL NT-Pro-B Natriuret Pep 515 pg/mL Total Protein (6.3-8.2) g/dL Albumin (3.5-5.0) g/dL - EKG Data EKG Comments: EKG done at 807/80 attending physician reveals sinus rhythm with a rate of 80. Normal axis. No acute ST or T-wave changes. Normal intervals. - Radiology Data Radiology results: report reviewed (I did review this film myself. No acute changes. No effusion, no cardiomegaly), image reviewed Disposition Clinical Impression: Peripheral edema, History of congestive heart failure, Mouth swelling Disposition: HOME SELF-CARE Condition: Good Instructions (If sedation given, give patient instructions): Low-Sodium Diet (ED), Heart Failure (ER) Additional Instructions: Continue current medications aside from lisinopril. Stopped this medication as it might be causing the mouth swelling. We'll prescribe a new blood pressure medication that you can start tomorrow. Follow-up with your regular physician as directed. Return to the ER immediately if any symptoms worsen, new symptoms arise, or any other problems develop. Is patient prescribed a controlled substance at d/c from ED?: No Referrals: Mack Fox DO [Primary Care Provider] - 01/02/22 8:00 am Time of Disposition: 23:34
[2021-12-30 20:41] LABS: ALT 27 U/L (4-49); AST 22 U/L (17-59); African American GFR (CKD) >90 (>60 ml/min/1.73 sqM); Albumin 3.7 g/dL (3.5-5.0); Alkaline Phosphatase 120 U/L (38-126); Anion Gap 6 mmol/L; Blood Urea Nitrogen 21 mg/dL (9-20); Calcium 9.2 mg/dL (8.4-10.2); Carbon Dioxide 27 mmol/L (22-30); Chloride 100 mmol/L (98-107); Glucose 152 mg/dL (74-99); Non-African American GFR(CKD) >90 (>60 ml/min/1.73 sqM); Potassium 4.3 mmol/L (3.5-5.1); Sodium 133 mmol/L (137-145); Total Bilirubin 0.2 mg/dL (0.2-1.3); Total Protein 6.2 g/dL (6.3-8.2)
--- NOTE | 2021-12-30 20:59 | XR ---
EXAMINATION TYPE: XR chest 2V DATE OF EXAM: 12/30/2021 8:32 PM COMPARISON: Multiple radiographs, with the most recent on 12/25/2021 CT 11/23/2015. TECHNIQUE: XR chest 2V Frontal and lateral views of the chest. CLINICAL INDICATION:Male, 56 years old with history of difficulty breathing; FINDINGS: Lungs/Pleura: There is flattening of the diaphragm with increased lucency of the lungs. No evidence o f pneumothorax, pleural effusion or focal consolidation. Unchanged left upper nodular area correlates to pleural thickening on prior in 2016. Additional scattered areas of calcified pleural nodules are not significantly changed from 2016. Pulmonary vascularity: Unremarkable. Heart/mediastinum: Cardiomediastinal silhouette is unremarkable. Musculoskeletal: No acute osseous pathology. There is fixation hardware in the lower cervical spine. IMPRESSION: 1. No acute cardiopulmonary disease process. 2. COPD changes.
[2021-12-31 00:37] VITALS: BP 111/72; PULSE 74; RESP 16
== END 2021-12-31 00:36 | disposition home or self-care (01) ==
LOC: EC 14:43
DX: I50.9 Heart failure, unspecified (principal); R22.0 Localized swelling, mass and lump, head; F17.200 Nicotine dependence, unspecified, uncomplicated; J44.9 Chronic obstructive pulmonary disease, unspecified; Z79.899 Other long term (current) drug therapy
CPT/HCPCS: 94640; 93005; 83880; 80053; 83735; 84484; 85025; 71046; 99284; 96374; J1940

== ENCOUNTER 2022-01-03 01:10 | Inpatient (IN) | payer MEDICARE ==
[2022-01-03] MEDS ORDERED: SODIUM CHLORIDE 0.9% 1,000 ML IV STA (01:14)
--- NOTE | 2022-01-03 01:26 | ED ---
Chest Pain HPI - General Chief Complaint: Chest Pain Stated Complaint: Chest pain Time Seen by Provider: 01/03/22 01:13 Source: patient, EMS Mode of arrival: EMS Limitations: no limitations - Related Data Home Medications Medication Instructions Recorded Confirmed Baclofen [Lioresal] 20 mg PO BID 12/21/15 12/22/21 HYDROcodone/APAP 7.5-325MG [[place] 1 tab PO BID PRN 04/17/20 12/22/21 7.5-325] Mirtazapine [Remeron] 30 mg PO HS 04/17/20 12/22/21 Pantoprazole Sodium [Protonix] 40 mg PO DAILY 04/17/20 12/22/21 Morphine Sulfate [Ms Contin] 15 mg PO Q12HR 01/28/21 12/22/21 Pregabalin 150 mg PO BID 09/14/21 12/22/21 QUEtiapine [SEROquel] 50 mg PO HS 09/14/21 12/22/21 SUMAtriptan succinate [Imitrex] 50 mg PO BID PRN 09/14/21 12/22/21 rOPINIRole HCL [Requip] 1 mg PO HS 09/17/21 12/22/21 DULoxetine HCL [Cymbalta] 20 mg PO BID 12/22/21 12/22/21 Previous Rx's Medication Instructions Recorded Albuterol Inhaler [Ventolin Hfa 2 puff INHALATION QID PRN #1 inh 12/26/21 Inhaler] Amoxic-Pot Clav 875-125Mg 1 each PO Q12HR #10 tab 12/26/21 [Augmentin 875-125] Furosemide [Lasix] 20 mg PO BID@0900,1600 #60 tab 12/26/21 Spironolactone [Aldactone] 25 mg PO DAILY #30 tab 12/26/21 carvediloL [Coreg] 6.25 mg PO BID-W/MEALS #60 tablet 12/26/21 lisinopriL [Zestril] 5 mg PO DAILY #30 tab 12/26/21 predniSONE 10 mg PO DIRECTED #9 tab 12/26/21 Losartan [Cozaar] 25 mg PO DAILY #30 tab 12/30/21 Allergies Allergy/AdvReac Type Severity Reaction Status Date / Time No Known Allergies Allergy Verified 12/30/21 15:59 Review of Systems ROS Statement: Those systems with pertinent positive or pertinent negative responses have been documented in the HPI. ROS Other: All systems not noted in ROS Statement are negative. EKG Findings - EKG Comments: EKG Findings:: EKG sinus rhythm 82 [place] 136 QRS 91 QTc 400 Past Medical History Past Medical History: Heart Failure, COPD, Eye Disorder, Musculoskeletal Disorder, Neurologic Disorder Additional Past Medical History / Comment(s): Multiple sclerosis USES A CANE TO AMBULATE, falls. has had in past occasional DOUBLE VISION. CHRONIC BACK NECK PAIN. HAD SPINAL STIMULATOR, THEN REMOVED; Migraine headache. Crohn's disease.lt ear [place] History of Any Multi-Drug Resistant Organisms: MRSA Date of last positivie culture/infection: 2014 MDRO Source:: lower back Past Surgical History: Appendectomy, Back Surgery, Bowel Resection, Hernia Repair Additional Past Surgical History / Comment(s): CERVICAL FUSION. SPINAL STIMULATOR implantation, revision and removal. FOREIGN BODY REMOVED RT CHEST WALL. 10/18/2015 wire removed from back. (from stimulator) Past Anesthesia/Blood Transfusion Reactions: Previous Problems w/ Anesthesia Additional Past Anesthesia/Blood Transfusion Reaction / Comment(s): STATES TAKES A LONG TIME TO WAKE UP Past Psychological History: Depression Smoking Status: Current every day smoker Past Alcohol Use History: Occasional Past Drug Use History: Marijuana - Past Family History Father Family Medical History: Cancer, Diabetes Mellitus Additional Family Medical History / Comment(s): CABG-TRIPLE BYPASS, Mother Family Medical History: Cancer, CVA/TIA, Diabetes Mellitus Additional Family Medical History / Comment(s): Stroke Brother(s) Additional Family Medical History / Comment(s): cardiomyopathy General Exam Limitations: no limitations Course Vital Signs 01/03/22 01:14 Pulse Rate 85 Respiratory 18 Rate Blood Pressure 100/67 O2 Sat by Pulse 92 L Oximetry Disposition Clinical Impression: COPD exacerbation, Chest pain, Intractable pain Disposition: ADMITTED IP TO THIS HOSP Condition: Good Is patient prescribed a controlled substance at d/c from ED?: No Referrals: Mack Fox DO [Primary Care Provider] - 1-2 days
--- NOTE | 2022-01-03 01:52 | XR ---
EXAM: XR Chest, 1 View CLINICAL HISTORY: chest pain TECHNIQUE: Frontal view of the chest. COMPARISON: December 30, 2021 FINDINGS: Lungs: Mild infiltration or atelectasis in both lung bases, worse on the right. Pleural space: Unremarkable. No pneumothorax or pleural fluid. Heart: Unremarkable. No cardiomegaly. Mediastinum: Unremarkable. Bones/joints: No acute findings. IMPRESSION: Mild infiltration or atelectasis in both lung bases, worse on the right.
[2022-01-03 01:55] LABS: INR 0.9 (<1.2); Partial Thromboplastin Time 25.4 sec (22.0-30.0); Prothrombin Time 9.9 sec (9.0-12.0)
[2022-01-03 02:00] LABS: Basophils # (A) 0.1 k/uL (0-0.2); Basophils % (A) 1 %; Eosinophils # (A) 0.1 k/uL (0-0.7); Eosinophils % (A) 1 %; HCT 42.2 % (39.0-53.0); HGB 14.5 gm/dL (13.0-17.5); Lymphocytes # (A) 1.3 k/uL (1.0-4.8); Lymphocytes % (A) 8 %; MCH 32.8 pg (25.0-35.0); MCHC 34.2 g/dL (31.0-37.0); MCV 95.8 fL (80.0-100.0); Mean Platelet Volume 7.8; Monocytes # (A) 1.2 k/uL (0-1.0); Monocytes % (A) 8 %; Neutrophils # (A) 12.8 k/uL (1.3-7.7); Neutrophils % (A) 82 %; Platelet Count 288 k/uL (150-450); RBC 4.41 m/uL (4.30-5.90); RDW 12.5 % (11.5-15.5); WBC 15.7 k/uL (3.8-10.6)
[2022-01-03 02:08] LABS: ALT 27 U/L (4-49); AST 26 U/L (17-59); African American GFR (CKD) >90 (>60 ml/min/1.73 sqM); Albumin 3.6 g/dL (3.5-5.0); Alkaline Phosphatase 101 U/L (38-126); Anion Gap 6 mmol/L; Blood Urea Nitrogen 22 mg/dL (9-20); Calcium 8.8 mg/dL (8.4-10.2); Carbon Dioxide 25 mmol/L (22-30); Chloride 99 mmol/L (98-107); Glucose 115 mg/dL (74-99); Lipase 34 U/L (23-300); Non-African American GFR(CKD) >90 (>60 ml/min/1.73 sqM); Potassium 4.5 mmol/L (3.5-5.1); Sodium 130 mmol/L (137-145); Total Bilirubin 0.4 mg/dL (0.2-1.3); Total Protein 6.1 g/dL (6.3-8.2)
[2022-01-03] MEDS ORDERED: IPRATROPIUM-ALBUTEROL 3 ML NEB INHALATION STA (02:31)
[2022-01-03] MEDS ORDERED: NALOXONE 0.4 MG/ML 1 ML VIAL IV PRN (02:31)
[2022-01-03] MEDS ORDERED: SODIUM CHLORIDE 0.9% 1,000 ML IV SCH (02:45)
[2022-01-03] MEDS ORDERED: AZITHROMYCIN 500 MG in SODIUM CHLORIDE 0.9% 250 ML IVPB ONE (03:00)
[2022-01-03] MEDS: IPRATROPIUM-ALBUTEROL 3 ML NEB INHALATION SCH ×5 (03:13→19:42)
[2022-01-03] MEDS: ONDANSETRON 4 MG/2 ML VIAL IVP PRN ×2 (05:31→13:01)
[2022-01-03] MEDS: MORPHINE SULFATE 4 MG/ML SYRINGE IV PRN ×3 (05:31→17:46)
--- NOTE | 2022-01-03 12:42 | P.CRDCN ---
History of Present Illness History of present illness: This is a 56-year-old male with a past medical history significant for nonischemic cardiomyopathy and chronic back and neck pain. Patient follows in the office with Dr. Geronimo. We have been asked to see the patient in consultation for chest pain. Patient presented to the hospital with a chief complaint of chest pain, abdominal pain, nausea and shortness of breath. He states yesterday he was feeling more short of breath, he had left sided chest pain. Happened after he vomited. Non-exertional. Lasted for about 2 hours. He had associated left arm dullness pain. He also endorses some shortness of breath and cough, nausea, vomiting and lower bilateral abdominal pain. His chest pain has now resolved. He denies any associated lightheadedness, dizziness, syncope or near syncope, diaphoresis. No fever or chills. He denies any symptoms of orthopnea or PND. He continues to smoke 1/2 PPD. Patient recently admitted 12/22-12/26 with similar complaints of chest pain and shortness of breath. Chest x-ray and CT findings are suggestive of multiple lesions in the lung. He has been treated with multiple antibiotics for pneumonia. Repeat echo revealed an ejection fraction of about 35-40% with generalized hypokinesia. He was diuresed with IV Lasix and transitioned to PO Lasix 20mg BID. He was stabilized then discharged home. DIAGNOSTICS * EKG reveals sinus mechanism HR 82, nonspecific ST-T abnormalities, prior EKG with similar findings. * Chest xray revealed mild infiltration or atelectasis in both lung bases, worse on the right. * Laboratory data: WBC 15.7, hemoglobin 14.5, platelets 288, troponin negative 3, proBNP 199, sodium 1:30, potassium 4.5, BUN 22, serum creatinine 0.8, ma gnesium 2.0 * Current home cardiac medications include Coreg 6.25 mg twice a day, aspirin lactone 20 mg daily, losartan 25 mg daily, Lasix 20 mg twice a day * Recent echocardiogram obtained 11/2021 revealed an EF 3540 percent, moderate mitral regurgitation mild tricuspid regurgitation * Cardiac catheterization history: 2015 revealing normal coronary arteries * Patient underwent Lexiscan stress test in June 2020 which was negative for ischemia REVIEW OF SYSTEMS: At the time of my exam: CONSTITUTIONAL: Denies fever or chills. HEENT: Denies blurred vision, vision changes, or eye pain. Denies hemoptysis CARDIOVASCULAR: + chest pain, resolved. Denies orthopnea. Denies PND. Denies palpitations RESPIRATORY: Reports shortness of breath. GASTROINTESTINAL: Denies abdominal pain. Denies nausea or vomiting. HEMATOLOGIC: Denies bleeding disorders. GENITOURINARY: Denies any blood in urine. SKIN: Denies pruitis. Denies rash. PHYSICAL EXAM: VITAL SIGNS: Reviewed. GENERAL: Well-developed in no acute distress. HEENT: Head is normocephalic. Pupils are equal, round. Sclerae anicteric. Mucous membranes of the mouth are moist. Neck supple. No JVD or thyromegaly LUNGS: Respirations even and unlabored. Lungs diminished bilaterally HEART: Regular rate and rhythm. S1 and S2 heard. Systolic murmur at apex. ABDOMEN: Soft. Nondistended. Nontender. EXTREMITIES: Normal range of motion. No clubbing or cyanosis. Peripheral pulses intact. No lower extremity edema NEUROLOGIC: Awake and alert. Oriented x 3. ASSESSMENT: Shortness of breath Pneumonia Chest pain, likely secondary to above, acute coronary syndrome has been ruled out History of nonischemic cardiomyopathy Nicotine dependence Recent reaction to lisinopril with angioedema PLAN: Continue home cardiac medications with carvedilol, Losartan, Lasix, spironolactone. Pneumonia treatment per primary. No further changes from a cardiology perspective. Follow up outpatient with Dr. Geronimo Nurse practitioner note has been reviewed by physician. Signing provider agrees with the documented findings, assessment, and plan of care. Past Medical History Past Medical History: Heart Failure, COPD, Eye Disorder, Musculoskeletal Disorder, Neurologic Disorder Additional Past Medical History / Comment(s): Multiple sclerosis USES A CANE TO AMBULATE, falls. has had in past occasional DOUBLE VISION. CHRONIC BACK NECK PAIN. HAD SPINAL STIMULATOR, THEN REMOVED; Migraine headache. Crohn's disease.lt ear [place] History of Any Multi-Drug Resistant Organisms: MRSA Date of last positivie culture/infection: 2014 MDRO Source:: lower back Past Surgical History: Appendectomy, Back Surgery, Bowel Resection, Hernia Repair Additional Past Surgical History / Comment(s): CERVICAL FUSION. SPINAL STIMULATOR implantation, revision and removal. FOREIGN BODY REMOVED RT CHEST WALL. 10/18/2015 wire removed from back. (from stimulator) Past Anesthesia/Blood Transfusion Reactions: Previous Problems w/ Anesthesia Additional Past Anesthesia/Blood Transfusion Reaction / Comment(s): STATES TAKES A LONG TIME TO WAKE UP Past Psychological History: Depression Smoking Status: Current every day smoker Past Alcohol Use History: Occasional Past Drug Use History: Marijuana - Past Family History Father Family Medical History: Cancer, Diabetes Mellitus Additional Family Medical History / Comment(s): CABG-TRIPLE BYPASS, Mother Family Medical History: Cancer, CVA/TIA, Diabetes Mellitus Additional Family Medical History / Comment(s): Stroke Brother(s) Additional Family Medical History / Comment(s): cardiomyopathy Medications and Allergies Home Medications Medication Instructions Recorded Confirmed Type Baclofen [Lioresal] 20 mg PO BID 12/21/15 01/03/22 History HYDROcodone/APAP 7.5-325MG [[place] 1 tab PO BID PRN 04/17/20 01/03/22 History 7.5-325] Mirtazapine [Remeron] 30 mg PO HS 04/17/20 01/03/22 History Pantoprazole Sodium [Protonix] 40 mg PO DAILY 04/17/20 01/03/22 History Morphine Sulfate [Ms Contin] 15 mg PO Q12HR 01/28/21 01/03/22 History Pregabalin 150 mg PO BID 09/14/21 01/03/22 History QUEtiapine [SEROquel] 50 mg PO HS 09/14/21 01/03/22 History SUMAtriptan succinate [Imitrex] 50 mg PO BID PRN 09/14/21 01/03/22 History rOPINIRole HCL [Requip] 1 mg PO HS 09/17/21 01/03/22 History DULoxetine HCL [Cymbalta] 20 mg PO BID 12/22/21 01/03/22 History Furosemide [Lasix] 20 mg PO BID@0900,1600 #60 tab 12/26/21 01/03/22 Rx Spironolactone [Aldactone] 25 mg PO DAILY #30 tab 12/26/21 01/03/22 Rx carvediloL [Coreg] 6.25 mg PO BID-W/MEALS #60 tablet 12/26/21 01/03/22 Rx Losartan [Cozaar] 25 mg PO DAILY #30 tab 12/30/21 01/03/22 Rx Albuterol Inhaler [Ventolin Hfa 2 puff INHALATION RT-QID PRN 01/03/22 01/03/22 History Inhaler] Allergies Allergy/AdvReac Type Severity Reaction Status Date / Time lisinopril AdvReac Swelling Verified 01/03/22 12:04 Physical Exam Vitals: Vital Signs Pulse Resp BP Pulse Ox 01/03/22 06:57 80 20 118/73 97 01/03/22 05:35 85 16 115/67 95 01/03/22 04:23 75 16 95/70 95 01/03/22 03:24 74 01/03/22 03:13 79 01/03/22 01:14 85 18 100/67 92 L Intake and Output 01/02/22 01/03/22 01/03/22 22:59 06:59 14:59 Other: Weight 88.451 kg Results 01/03/22 01:28 01/03/22 01:28 Cardiac Enzymes 01/03/22 01/03/22 01/03/22 Range/Units 01:28 01:28 01:28 WBC 15.7 H (3.8-10.6) k/uL RBC 4.41 (4.30-5.90) m/uL Hgb 14.5 (13.0-17.5) gm/dL Hct 42.2 (39.0-53.0) % MCV 95.8 (80.0-100.0) fL MCH 32.8 (25.0-35.0) pg MCHC 34.2 (31.0-37.0) g/dL RDW 12.5 (11.5-15.5) % Plt Count 288 (150-450) k/uL MPV 7.8 Neutrophils % 82 % Lymphocytes % 8 % Monocytes % 8 % Eosinophils % 1 % Basophils % 1 % Neutrophils # 12.8 H (1.3-7.7) k/uL Lymphocytes # 1.3 (1.0-4.8) k/uL Monocytes # 1.2 H (0-1.0) k/uL Eosinophils # 0.1 (0-0.7) k/uL Basophils # 0.1 (0-0.2) k/uL PT 9.9 (9.0-12.0) sec INR 0.9 (<1.2) APTT 25.4 (22.0-30.0) sec Sodium 130 L (137-145) mmol/L Potassium 4.5 (3.5-5.1) mmol/L Chloride 99 (98-107) mmol/L Carbon Dioxide 25 (22-30) mmol/L Anion Gap 6 mmol/L BUN 22 H (9-20) mg/dL Creatinine 0.85 (0.66-1.25) mg/dL Est GFR (CKD-EPI)AfAm >90 (>60 ml/min/1.73 sqM) Est GFR (CKD-EPI)NonAf >90 (>60 ml/min/1.73 sqM) Glucose 115 H (74-99) mg/dL Calcium 8.8 (8.4-10.2) mg/dL Magnesium 2.0 (1.6-2.3) mg/dL Total Bilirubin 0.4 (0.2-1.3) mg/dL AST 26 (17-59) U/L ALT 27 (4-49) U/L Alkaline Phosphatase 101 (38-126) U/L Troponin I (0.000-0.034) ng/mL NT-Pro-B Natriuret Pep pg/mL Total Protein 6.1 L (6.3-8.2) g/dL Albumin 3.6 (3.5-5.0) g/dL Lipase 34 (23-300) U/L 01/03/22 01/03/22 01/03/22 Range/Units 01:28 01:28 05:25 WBC (3.8-10.6) k/uL RBC (4.30-5.90) m/uL Hgb (13.0-17.5) gm/dL Hct (39.0-53.0) % MCV (80.0-100.0) fL MCH (25.0-35.0) pg MCHC (31.0-37.0) g/dL RDW (11.5-15.5) % Plt Count (150-450) k/uL MPV Neutrophils % % Lymphocytes % % Monocytes % % Eosinophils % % Basophils % % Neutrophils # (1.3-7.7) k/uL Lymphocytes # (1.0-4.8) k/uL Monocytes # (0-1.0) k/uL Eosinophils # (0-0.7) k/uL Basophils # (0-0.2) k/uL PT (9.0-12.0) sec INR (<1.2) APTT (22.0-30.0) sec Sodium (137-145) mmol/L Potassium (3.5-5.1) mmol/L Chloride (98-107) mmol/L Carbon Dioxide (22-30) mmol/L Anion Gap mmol/L BUN (9-20) mg/dL Creatinine (0.66-1.25) mg/dL Est GFR (CKD-EPI)AfAm (>60 ml/min/1.73 sqM) Est GFR (CKD-EPI)NonAf (>60 ml/min/1.73 sqM) Glucose (74-99) mg/dL Calcium (8.4-10.2) mg/dL Magnesium (1.6-2.3) mg/dL Total Bilirubin (0.2-1.3) mg/dL AST (17-59) U/L ALT (4-49) U/L Alkaline Phosphatase (38-126) U/L Troponin I <0.012 <0.012 (0.000-0.034) ng/mL NT-Pro-B Natriuret Pep 199 pg/mL Total Protein (6.3-8.2) g/dL Albumin (3.5-5.0) g/dL Lipase (23-300) U/L Coagulation 01/03/22 Range/Units 01:28 PT 9.9 (9.0-12.0) sec APTT 25.4 (22.0-30.0) sec CBC 01/03/22 Range/Units 01:28 WBC 15.7 H (3.8-10.6) k/uL RBC 4.41 (4.30-5.90) m/uL Hgb 14.5 (13.0-17.5) gm/dL Hct 42.2 (39.0-53.0) % Plt Count 288 (150-450) k/uL Comprehensive Metabolic Panel 01/03/22 Range/Units 01:28 Sodium 130 L (137-145) mmol/L Potassium 4.5 (3.5-5.1) mmol/L Chloride 99 (98-107) mmol/L Carbon Dioxide 25 (22-30) mmol/L BUN 22 H (9-20) mg/dL Creatinine 0.85 (0.66-1.25) mg/dL Glucose 115 H (74-99) mg/dL Calcium 8.8 (8.4-10.2) mg/dL AST 26 (17-59) U/L ALT 27 (4-49) U/L Alkaline Phosphatase 101 (38-126) U/L Total Protein 6.1 L (6.3-8.2) g/dL Albumin 3.6 (3.5-5.0) g/dL Current Medications Generic Name Dose Route Start Last Admin Trade Name Freq PRN Reason Stop Dose Admin Albuterol/Ipratropium 3 ml 01/03/22 04:00 01/03/22 03:13 Ipratropium-Albuterol 3 Ml Neb INHALATION Not Given RT-Q4H CANDIS Sodium Chloride 1,000 mls @ 20 mls/hr 01/03/22 01:14 01/03/22 04:41 Saline 0.9% IV 01/04/22 01:13 Not Given .Q24H STA Sodium Chloride 1,000 mls @ 75 mls/hr 01/03/22 02:45 01/03/22 04:41 Saline 0.9% IV 75 mls/hr .[id number] CANDIS Administration Ceftriaxone Sodium 2 gm/ 50 mls @ 100 mls/hr 01/04/22 06:00 Sodium Chloride IVPB Q24H CANDIS Protocol Azithromycin 500 mg/ Sodium 250 mls @ 250 mls/hr 01/04/22 04:00 Chloride IVPB 01/05/22 09:59 DAILY CANDIS Protocol Morphine Sulfate 4 mg 01/03/22 02:31 01/03/22 05:31 Morphine Sulfate 4 Mg/Ml Syringe IV 4 mg Q4HR PRN Administration Severe Pain Naloxone HCl 0.2 mg 01/03/22 02:31 Naloxone 0.4 Mg/Ml 1 Ml Vial IV Q2M PRN Opioid Reversal Ondansetron HCl 4 mg 01/03/22 02:31 01/03/22 05:31 Ondansetron 4 Mg/2 Ml Vial IVP 4 mg Q8HR PRN Administration Nausea And Vomiting Intake and Output 01/02/22 01/03/22 01/03/22 22:59 06:59 14:59 Other: Weight 88.451 kg 01/03/22 01:28 01/03/22 01:28
[2022-01-03] MEDS ORDERED: SUMAtriptan succinate 50 MG TAB PO PRN (12:55)
[2022-01-03] MEDS: carvediloL 6.25 MG TAB PO SCH ×2 (13:09→17:36)
[2022-01-03] MEDS: SPIRONOLACTONE 25 MG TAB PO SCH (13:10)
[2022-01-03] MEDS: LOSARTAN 25 MG TAB PO SCH (13:10)
[2022-01-03] MEDS: MORPHINE SULFATE ER 15 MG TABLET PO SCH ×2 (13:37→20:15)
[2022-01-03] MEDS: HEPARIN SODIUM,PORCINE/PF 5,000 UNIT/0.5 ML SYRINGE SQ SCH ×2 (13:37→20:16)
[2022-01-03] MEDS: methylPREDNISolone SOD SUCCI 125 MG/2 ML VIAL IV SCH ×3 (13:37→23:11)
[2022-01-03] MEDS: BACLOFEN 10 MG TAB PO SCH ×2 (13:45→20:13)
--- NOTE | 2022-01-03 14:07 | HP ---
HISTORY AND PHYSICAL DATE OF SERVICE: 01/03/2022 CHIEF COMPLAINT: Chest pain and cough. HISTORY OF PRESENT ILLNESS: This 56-year-old gentleman with a past medical history of COPD CHF, being followed by Dr. Fox in the outpatient setting complaining of chest pain, cough. His chest pain is mainly on the left side of the lower part of the chest. Chest x-ray showed bilateral pneumonia, right more the left. The patient admitted to the hospital for further evaluation. Cardiology evaluation in progress. There is no history of fever, rigors, chills at this time. PAST MEDICAL HISTORY: History reviewed and include: COPD and CHF. HOME MEDICATIONS: Reviewed and include Requip, dose and the rest of medications noted. ALLERGIES: LISINOPRIL. FAMILY HISTORY: History of diabetes mellitus. SOCIAL HISTORY: History of smoking. REVIEW OF SYSTEMS: Fourteen review of systems is negative except as mentioned earlier. PHYSICAL EXAMINATION: Pulse is 71, blood pressure 116/102, respiration 15. HEENT: Conjunctivae normal. NECK: No JVD. CARDIOVASCULAR: S1, S2 muffled. RESPIRATION: Breath sounds diminished in the bases. A few scattered rhonchi and crackles. Expiratory wheezing also present. ABDOMEN: Soft, nontender. LEGS are no edema. No swelling. NERVOUS SYSTEM: No focal deficits. SKIN: No ulcer, rash or bleeding. JOINTS: No active deforming arthropathy. LABS: WBC 15.6. Other labs noted. ASSESSMENT: 1. Chronic obstructive pulmonary disease exacerbation with bilateral pneumonia right more than the left. 2. Chest pain, rule out coronary disease. 3. History of chronic obstructive pulmonary disease. 4. History of congestive heart failure. 5. Multiple medical issues. RECOMMENDATIONS AND DISCUSSION: This 56-year-old gentleman who presented with multiple complex medical issues, we will monitor the patient closely. We will initiate aggressive bronchodilator treatment, IV steroids, empiric antibiotics. We will obtain the cultures. Pulmonology and as well as Cardiology consultations. Resume the home medications. DVT prophylaxis. Proton pump inhibitors. Prognosis guarded because of multiple complex medical issues as discussed above. Further recommendations were discussed with the patient. A copy of this dictation being forwarded to Dr. Fox who is the primary physician. All charts reviewed. MMODL / IJN: [id number] /
[2022-01-03 16:44] LABS: Glucose,Whole Blood 165 mg/dL (70-110)
[2022-01-03] MEDS: FUROSEMIDE 20 MG TAB PO SCH (17:36)
[2022-01-03] MEDS: INSULIN ASPART (NovoLOG) 100 UNIT/ML VIAL SQ SCH ×2 (17:36→20:44)
[2022-01-03] MEDS: SYMBICORT 160-4.5 MCG INHALER INHALATION SCH (19:43)
[2022-01-03] MEDS: MIRTAZAPINE 15 MG TAB PO SCH (20:13)
[2022-01-03] MEDS: PREGABALIN 75 MG CAP PO SCH (20:13)
[2022-01-03] MEDS: QUEtiapine 50 MG TAB PO SCH (20:13)
[2022-01-03 20:22] LABS: Glucose,Whole Blood 194 mg/dL (70-110)
[2022-01-03] MEDS ORDERED: IPRATROPIUM-ALBUTEROL 3 ML NEB INHALATION PRN (20:42)
[2022-01-03] MEDS: DULoxetine HCL 20 MG CAPSULE.DR PO SCH (20:44)
[2022-01-04] MEDS: HYDROcodone/APAP 7.5-325MG 1 EACH TAB PO PRN ×2 (00:55→12:35)
[2022-01-04] MEDS ORDERED: AZITHROMYCIN 500 MG in SODIUM CHLORIDE 0.9% 250 ML IVPB SCH ×2 (04:00→09:00)
[2022-01-04 06:11] LABS: Glucose,Whole Blood 179 mg/dL (70-110)
[2022-01-04] MEDS: methylPREDNISolone SOD SUCCI 125 MG/2 ML VIAL IV SCH ×3 (06:12→17:43)
[2022-01-04] MEDS: carvediloL 6.25 MG TAB PO SCH ×2 (06:12→17:27)
[2022-01-04] MEDS: PANTOPRAZOLE 40 MG TABLET PO SCH (06:12)
[2022-01-04] MEDS: INSULIN ASPART (NovoLOG) 100 UNIT/ML VIAL SQ SCH ×4 (06:12→22:11)
[2022-01-04] MEDS: BACLOFEN 10 MG TAB PO SCH ×2 (07:35→22:10)
[2022-01-04] MEDS: MORPHINE SULFATE ER 15 MG TABLET PO SCH ×2 (07:35→22:11)
[2022-01-04] MEDS: DULoxetine HCL 20 MG CAPSULE.DR PO SCH ×2 (07:35→22:45)
[2022-01-04] MEDS: FUROSEMIDE 20 MG TAB PO SCH ×2 (07:35→17:27)
[2022-01-04] MEDS: LOSARTAN 25 MG TAB PO SCH (07:35)
[2022-01-04] MEDS: SPIRONOLACTONE 25 MG TAB PO SCH (07:35)
[2022-01-04] MEDS: PREGABALIN 75 MG CAP PO SCH ×2 (07:36→22:10)
[2022-01-04] MEDS: HEPARIN SODIUM,PORCINE/PF 5,000 UNIT/0.5 ML SYRINGE SQ SCH ×2 (07:36→22:45)
[2022-01-04 08:15] LABS: Basophils % (A) 0 %; Eosinophils % (A) 0 %; HCT 37.1 % (39.0-53.0); HGB 12.1 gm/dL (13.0-17.5); Lymphocytes # (A) 0.6 k/uL (1.0-4.8); Lymphocytes % (A) 5 %; MCH 32.1 pg (25.0-35.0); MCHC 32.7 g/dL (31.0-37.0); MCV 98.2 fL (80.0-100.0); Mean Platelet Volume 8.2; Monocytes # (A) 0.5 k/uL (0-1.0); Monocytes % (A) 4 %; Neutrophils # (A) 11.5 k/uL (1.3-7.7); Neutrophils % (A) 91 %; Platelet Count 247 k/uL (150-450); RBC 3.78 m/uL (4.30-5.90); RDW 12.5 % (11.5-15.5); WBC 12.6 k/uL (3.8-10.6)
[2022-01-04] MEDS: IPRATROPIUM-ALBUTEROL 3 ML NEB INHALATION SCH ×4 (08:22→19:49)
[2022-01-04] MEDS: SYMBICORT 160-4.5 MCG INHALER INHALATION SCH ×2 (08:22→19:49)
[2022-01-04 08:37] LABS: ALT 21 U/L (4-49); AST 22 U/L (17-59); African American GFR (CKD) >90 (>60 ml/min/1.73 sqM); Albumin 3.1 g/dL (3.5-5.0); Alkaline Phosphatase 92 U/L (38-126); Anion Gap 5 mmol/L; Blood Urea Nitrogen 21 mg/dL (9-20); Calcium 8.6 mg/dL (8.4-10.2); Carbon Dioxide 25 mmol/L (22-30); Chloride 102 mmol/L (98-107); Glucose 144 mg/dL (74-99); Magnesium 2.1 mg/dL (1.6-2.3); Non-African American GFR(CKD) >90 (>60 ml/min/1.73 sqM); Phosphorus 3.2 mg/dL (2.5-4.5); Potassium 5.2 mmol/L (3.5-5.1); Sodium 132 mmol/L (137-145); Total Bilirubin 0.2 mg/dL (0.2-1.3); Total Protein 5.6 g/dL (6.3-8.2)
[2022-01-04 11:47] LABS: Glucose,Whole Blood 149 mg/dL (70-110)
[2022-01-04] MEDS: PIPERACILLIN-TAZOBACTAM 3.375 GM in SODIUM CHLORIDE 0.9% 100 ML IVPB SCH ×2 (11:48→19:16)
--- NOTE | 2022-01-04 13:44 | PN ---
PROGRESS NOTE DATE OF SERVICE: 01/04/2022 This 56-year-old gentleman who was admitted with COPD as well as pneumonia also had some chest pain. No fever. No cough. PHYSICAL EXAMINATION: Pulse is 76, blood pressure 107/67, respiration 20. HEENT: Conjunctivae normal. Neck: No JVD. Cardiovascular: S1, S2 muffled. Respirations: Breath sounds diminished in the bases. A few scattered rhonchi and crackles. Abdomen: Soft. Nervous system: No focal deficits. LABS: Reviewed. WBC 12.5. Other labs are reviewed. ASSESSMENT: 1. Chronic obstructive pulmonary disease acute exacerbation with bilateral pneumonia, right more than the left. 2. Chest pain, myocardial infarction ruled out. 3. History of chronic obstructive pulmonary disease. 4. History of congestive heart failure. 5. Multiple medical issues. RECOMMENDATIONS AND DISCUSSION: Recommend to continue current medications, bronchodilators. Continue the empiric antibiotics, symptomatic treatment. Follow closely with Cardiology. Guarded prognosis. Further recommendations to follow. MMODL / IJN: [id number] /
--- NOTE | 2022-01-04 13:58 | P.CNPUL ---
History of Present Illness Consult date: 01/04/22 Requesting physician: Mack Fox Reason for consult: dyspnea, cough, chest pain, COPD, pneumonia Chief complaint: Shortness of breath cough and left-sided chest pain History of present illness: This is a 56-year-old white male, 20.-pack-year smoking history known history of COPD, nonischemic cardiomyopathy pleurisy, history of multiple sclerosis, Crohn's disease, chronic anemia, and history of migraine cephalgia. Patient is being followed by neurology/Dr. Carlin and being evaluated for possible Parkinson's disease. Patient describes chronic difficulty with swallowing, however he had no previous workup to evaluate his dysphagia. Patient was admitted back on 12/19/2021, and he was admitted last time seen by Dr. Espinosa on consultation, and he was diagnosed as having bilateral pneumonia. CT angiogram on this last admission showed significant bronchial impaction in the bronchus intermedius as well as middle lobe and bilateral lower lobes of bronchitis. There was also complete collapse of the middle lobe with subsegmental atelectasis of the right lower lobe. Patient was treated mostly with antibiotics, bronchodilators, and steroids, and he felt much better, discharged home. Patient is back to the hospital yesterday with similar complaints. Apparently he was at his son's green party, patient developed an episode of epigastric discomfort followed by nausea and vomiting and he went on to develop left-sided chest pain, pleuritic in nature, lasted about 2 hours, and he was also com plaining of shortness of breath. Brought into ER, chest x-ray showed similar findings in the right lower lobe and left lower lobe patient was admitted and this consult was initiated. Going back to his last admission from 2 weeks ago, patient had an echocardiogram showing LV dysfunction with ejection fraction of 35-40%, generalized hypokinesia, and the patient was treated with Lasix on the last admission. After reevaluating the patient, I recommended that we place the patient on Zosyn instead of Rocephin and Zithromax, and recommended consultation with the speech therapist and swallow evaluation, patient may even require EGD for further evaluation of his chronic dysphagia Review of Systems CONSTITUTIONAL: [Negative.] NEUROLOGIC: [ Negative.] Patient has chronic tremors being evaluated for possible Parkinson's disease HEENT: [ Negative.] CARDIAC: No history of nonischemic cardiomyopathy and LV dysfunction PULMONARY: As noted in HPI GI: As noted in HPI : [Negative.] RHEUMATOLOGIC: [ Negative.] IMMUNOLOGIC: [ Negative.] ENDOCRINE: [Negative. ] DERMATOLOGIC: [Negative.] Past Medical History Past Medical History: Heart Failure, COPD, Eye Disorder, Musculoskeletal Disorder, Neurologic Disorder Additional Past Medical History / Comment(s): Multiple sclerosis USES A CANE TO AMBULATE, falls. has had in past occasional DOUBLE VISION. CHRONIC BACK NECK PAIN. HAD SPINAL STIMULATOR, THEN REMOVED; Migraine headache. Crohn's disease.lt ear [place] History of Any Multi-Drug Resistant Organisms: MRSA Date of last positivie culture/infection: 2014 MDRO Source:: lower back Past Surgical History: Appendectomy, Back Surgery, Bowel Resection, Hernia Repair Additional Past Surgical History / Comment(s): CERVICAL FUSION. SPINAL STIMULATOR implantation, revision and removal. FOREIGN BODY REMOVED RT CHEST WALL. 10/18/2015 wire removed from back. (from stimulator) Past Anesthesia/Blood Transfusion Reactions: Previous Problems w/ Anesthesia Additional Past Anesthesia/Blood Transfusion Reaction / Comment(s): STATES TAKES A LONG TIME TO WAKE UP Past Psychological History: Depression Smoking Status: Current every day smoker Past Alcohol Use History: Occasional Past Drug Use History: Marijuana - Past Family History Father Family Medical History: Cancer, Diabetes Mellitus Additional Family Medical History / Comment(s): CABG-TRIPLE BYPASS, Mother Family Medical History: Cancer, CVA/TIA, Diabetes Mellitus Additional Family Medical History / Comment(s): Stroke Brother(s) Additional Family Medical History / Comment(s): cardiomyopathy Medications and Allergies Home Medications Medication Instructions Recorded Confirmed Type Baclofen [Lioresal] 20 mg PO BID 12/21/15 01/03/22 History HYDROcodone/APAP 7.5-325MG [[place] 1 tab PO BID PRN 04/17/20 01/03/22 History 7.5-325] Mirtazapine [Remeron] 30 mg PO HS 04/17/20 01/03/22 History Pantoprazole Sodium [Protonix] 40 mg PO DAILY 04/17/20 01/03/22 History Morphine Sulfate [Ms Contin] 15 mg PO Q12HR 01/28/21 01/03/22 History Pregabalin 150 mg PO BID 09/14/21 01/03/22 History QUEtiapine [SEROquel] 50 mg PO HS 09/14/21 01/03/22 History SUMAtriptan succinate [Imitrex] 50 mg PO BID PRN 09/14/21 01/03/22 History rOPINIRole HCL [Requip] 1 mg PO HS 09/17/21 01/03/22 History DULoxetine HCL [Cymbalta] 20 mg PO BID 12/22/21 01/03/22 History Furosemide [Lasix] 20 mg PO BID@0900,1600 #60 tab 12/26/21 01/03/22 Rx Spironolactone [Aldactone] 25 mg PO DAILY #30 tab 12/26/21 01/03/22 Rx carvediloL [Coreg] 6.25 mg PO BID-W/MEALS #60 tablet 12/26/21 01/03/22 Rx Losartan [Cozaar] 25 mg PO DAILY #30 tab 12/30/21 01/03/22 Rx Albuterol Inhaler [Ventolin Hfa 2 puff INHALATION RT-QID PRN 01/03/22 01/03/22 History Inhaler] Allergies Allergy/AdvReac Type Severity Reaction Status Date / Time lisinopril AdvReac Swelling Verified 01/03/22 12:04 Physical Exam Vitals: Vital Signs Temp Pulse Pulse Resp BP BP Pulse Ox 01/04/22 13:05 76 01/04/22 11:55 80 01/04/22 11:45 76 20 107/63 92 L 01/04/22 11:43 80 01/04/22 07:46 81 01/04/22 07:36 97.5 F L 81 20 121/67 91 L 01/04/22 04:00 97.7 F 84 18 107/65 97 01/04/22 02:53 88 01/04/22 02:42 80 01/04/22 01:54 20 01/03/22 23:59 98.2 F 84 18 106/66 92 L 01/03/22 20:03 74 01/03/22 20:00 98.0 F 80 18 98/64 92 L 01/03/22 19:46 93 L 01/03/22 19:43 74 01/03/22 16:02 82 16 104/65 90 L 01/03/22 16:00 98.0 F 83 16 114/70 92 L 01/03/22 15:34 77 01/03/22 15:18 74 91 L 01/03/22 14:38 75 15 92/60 92 L Intake and Output 01/03/22 01/04/22 01/04/22 22:59 06:59 14:59 Intake Total 360 480 358 Balance 360 480 358 Intake: Oral 360 480 358 Other: Voiding Method Toilet Toilet # Voids 2 2 Weight 91.4 kg Physical Exam: Revealed 56-year-old white male in no distress Head: Atraumatic, normocephalic. HEENT:[Neck is supple.] [No neck masses.] [No thyromegaly.] [No JVD.] Chest: Diminished breath sounds at the bases no crackles or rhonchi or wheezes Cardiac Exam: [Normal S1 and S2, no S3 gallop, no murmur.] Abdomen: [Soft, nontender, no megaly, no rebound, no guarding, normal bowel sounds.] Extremities: [No clubbing, no edema, no cyanosis.] Neurological Exam: [No focal neurologic deficit.] Alert oriented 3. Patient is noted to have resting tremors Psychiatric: Normal mood, affect and normal mental status examination. Skin: No rashes Results - Laboratory Findings CBC and BMP: 01/04/22 07:03 01/04/22 07:03 PT/INR, D-dimer PT 9.9 sec (9.0-12.0) 01/03/22 01:28 INR 0.9 (<1.2) 01/03/22 01:28 Abnormal lab findings: Abnormal Labs 01/03/22 01/03/22 01/03/22 01:28 01:28 16:42 WBC 15.7 H RBC Hgb Hct Neutrophils # 12.8 H Lymphocytes # Monocytes # 1.2 H Sodium 130 L Potassium BUN 22 H Glucose 115 H POC Glucose (mg/dL) 165 H Total Protein 6.1 L Albumin 01/03/22 01/04/22 01/04/22 20:20 06:09 07:03 WBC 12.6 H RBC 3.78 L Hgb 12.1 L Hct 37.1 L Neutrophils # 11.5 H Lymphocytes # 0.6 L Monocytes # Sodium Potassium BUN Glucose POC Glucose (mg/dL) 194 H 179 H Total Protein Albumin 01/04/22 01/04/22 07:03 11:46 WBC RBC Hgb Hct Neutrophils # Lymphocytes # Monocytes # Sodium 132 L Potassium 5.2 H BUN 21 H Glucose 144 H POC Glucose (mg/dL) 149 H Total Protein 5.6 L Albumin 3.1 L - Diagnostic Findings Chest x-ray: image reviewed (As noted in HPI) Assessment and Plan Assessment: Impression: Acute hypoxic respiratory failure Recurrent aspiration pneumonia is strongly suspected Chronic dysphagia, needs further evaluation Chronic obstructive pulmonary disease, does not seem to be active on this admission Tobacco dependence syndrome Multiple sclerosis Chronic back pain, previous placement of a spinal stimulator Migraine cephalgia History of Crohn's disease Recommendation: Start patient on Zosyn and discontinue other antibiotics Speech therapy evaluation, patient will need a swallow evaluation Consider GI consultation chronic dysphagia patient may need EGD. Bronchodilators/DuoNeb updrafts 4 times a day and when necessary Continue methylprednisolone Resume home meds We'll continue to follow. No need for repeat CT of the chest at this time but that is to be considered if the patient does not improve much Time with Patient: Greater than 30
[2022-01-04 16:16] LABS: Glucose,Whole Blood 226 mg/dL (70-110)
[2022-01-04] MEDS: ONDANSETRON 4 MG/2 ML VIAL IVP PRN (17:42)
[2022-01-04] MEDS: MORPHINE SULFATE 4 MG/ML SYRINGE IV PRN (18:24)
[2022-01-04 21:31] LABS: Glucose,Whole Blood 218 mg/dL (70-110)
[2022-01-04] MEDS: MIRTAZAPINE 15 MG TAB PO SCH (22:10)
[2022-01-04] MEDS: QUEtiapine 50 MG TAB PO SCH (22:46)
[2022-01-05] MEDS: PIPERACILLIN-TAZOBACTAM 3.375 GM in SODIUM CHLORIDE 0.9% 100 ML IVPB SCH ×2 (03:12→12:26)
[2022-01-05] MEDS: methylPREDNISolone SOD SUCCI 125 MG/2 ML VIAL IV SCH ×4 (03:12→17:29)
[2022-01-05 07:08] LABS: Glucose,Whole Blood 178 mg/dL (70-110)
[2022-01-05] MEDS: IPRATROPIUM-ALBUTEROL 3 ML NEB INHALATION SCH ×4 (07:10→19:44)
[2022-01-05] MEDS: SYMBICORT 160-4.5 MCG INHALER INHALATION SCH ×2 (07:10→19:44)
[2022-01-05] MEDS: PANTOPRAZOLE 40 MG TABLET PO SCH (08:06)
[2022-01-05] MEDS: INSULIN ASPART (NovoLOG) 100 UNIT/ML VIAL SQ SCH ×3 (08:06→17:27)
[2022-01-05] MEDS: carvediloL 6.25 MG TAB PO SCH ×2 (08:06→17:27)
[2022-01-05 10:08] LABS: Basophils # (A) 0.02 X 10*3/uL (0.00-0.10); Basophils % (A) 0.1 %; Eosinophils # (A) 0 X 10*3/uL (0.04-0.35); Eosinophils % (A) 0 %; HCT 35.7 % (39.6-50.0); HGB 11.5 g/dL (13.0-17.0); Immature Grans, Automated 0.8 %; Lymphocytes % (A) 3.4 %; MCH 30.7 pg (27.0-32.0); MCHC 32.2 g/dL (32.0-37.0); MCV 95.2 fL (80.0-97.0); Mean Platelet Volume 10.9 fL (9.5-12.2); Monocytes % (A) 2.9 %; NRBC Per 100 WBC 0 /100 WBCS (0.0-0.0); Neutrophils % (A) 92.8 %; Platelet Count 260 X 10*3/uL (140-440); RBC 3.75 X 10*6/uL (4.40-5.60); RDW 13.1 % (11.5-14.5); WBC 20.78 X 10*3/uL (4.50-10.00)
[2022-01-05] MEDS: HEPARIN SODIUM,PORCINE/PF 5,000 UNIT/0.5 ML SYRINGE SQ SCH (10:09)
[2022-01-05] MEDS: BACLOFEN 10 MG TAB PO SCH (10:09)
[2022-01-05] MEDS: LOSARTAN 25 MG TAB PO SCH (10:10)
[2022-01-05] MEDS: DULoxetine HCL 20 MG CAPSULE.DR PO SCH (10:10)
[2022-01-05] MEDS: SPIRONOLACTONE 25 MG TAB PO SCH (10:10)
[2022-01-05] MEDS: MORPHINE SULFATE ER 15 MG TABLET PO SCH (10:10)
[2022-01-05] MEDS: FUROSEMIDE 20 MG TAB PO SCH ×2 (10:10→16:02)
[2022-01-05] MEDS: PREGABALIN 75 MG CAP PO SCH (10:13)
[2022-01-05 10:34] LABS: African American GFR (CKD) 116.7 (60.0-200.0); Anion Gap 8.2 mmol/L (10.00-18.00); BUN/Creat Ratio 19.79 Ratio (12.00-20.00); Calcium 8.8 mg/dL (8.7-10.3); Carbon Dioxide 26.3 mmol/L (20.0-27.5); Non-African American GFR(CKD) 100.7 (60.0-200.0); Potassium 5.1 mmol/L (3.5-5.5)
[2022-01-05 12:11] LABS: Glucose,Whole Blood 176 mg/dL (70-110)
--- NOTE | 2022-01-05 12:17 | P.PN ---
Subjective Progress Note Date: 01/05/22 Principal diagnosis: Dyspnea, left-sided chest pain This is a 56-year-old white male, 20.-pack-year smoking history known history of COPD, nonischemic cardiomyopathy pleurisy, history of multiple sclerosis, Crohn's disease, chronic anemia, and history of migraine cephalgia. Patient is being followed by neurology/Dr. Carlin and being evaluated for possible Parkinson's disease. Patient describes chronic difficulty with swallowing, however he had no previous workup to evaluate his dysphagia. Patient was admitted back on 12/19/2021, and he was admitted last time seen by Dr. Espinosa on consultation, and he was diagnosed as having bilateral pneumonia. CT angiogram on this last admission showed significant bronchial impaction in the bronchus intermedius as well as middle lobe and bilateral lower lobes of bronchitis. There was also complete collapse of the middle lobe with subsegmental atelectasis of the right lower lobe. Patient was treated mostly with antibiotics, bronchodilators, and steroids, and he felt much better, discharged home. Patient is back to the hospital yesterday with similar complaints. Apparently he was at his son's alliance party, patient developed an episode of epigastric discomfort followed by nausea and vomiting and he went on to develop left-sided chest pain, pleuritic in nature, lasted about 2 hours, and he was also complaining of shortness of breath. Brought into ER, chest x-ray showed similar findings in the right lower lobe and left lower lobe patient was admitted and this consult was initiated. Going back to his last admission from 2 weeks ago, patient had an echocardiogram showing LV dysfunction with ejection fraction of 35-40%, generalized hypokinesia, and the patient was treated with Lasix on the last admission. After reevaluating the patient, I recommended that we place the patient on Zosyn instead of Rocephin and Zithromax, and recommended consultation with the speech therapist and swallow evaluation, patient may even require EGD for further evaluation of his chronic dysphagia On 01/05/2022 patient seen in follow-up on medical surgical floor. He is resting comfortably in bed, remains on 4 L of oxygen pulse ox of 91%, does not appear to be in any acute distress, altered mentation, sounds better on today exam. He had a speech evaluation at the bedside, was noted to have difficulty swallowing yesterday at lunch, was recommended dysphagia diet, and modified barium swallow is scheduled for today. Otherwise no complaints of chest discomfort, no fever. Continues on Zosyn for possibility of aspiration related pneumonia Objective - Vital Signs Vital signs: Vital Signs Temp 97.7 F 01/05/22 07:00 Pulse 79 01/05/22 07:32 Resp 15 01/05/22 10:59 BP 111/79 01/05/22 07:32 Pulse Ox 91 L 01/05/22 07:10 FiO2 Intake & Output 01/04/22 01/05/22 01/05/22 18:59 06:59 18:59 Intake Total 538 1080 180 Balance 538 1080 180 Weight 92.9 kg Intake: Oral 538 1080 180 Other: Voiding Method Toilet Toilet # Voids 2 - Exam GENERAL EXAM: Alert, very pleasant 56-year-old white male, on 4 L of oxygen with pulse ox of 91% comfortable in no apparent distress. HEAD: Normocephalic/atraumatic. EYES: Normal reaction of pupils, equal size. Conjunctiva pink, sclera white. NOSE: Clear with pink turbinates. THROAT: No erythema or exudates. NECK: No masses, no JVD, no thyroid enlargement, no adenopathy. CHEST: No chest wall deformity. Symmetrical expansion. LUNGS: Equal air entry with scattered rhonchi CVS: Regular rate and rhythm, normal S1 and S2, no gallops, no murmurs, no rubs ABDOMEN: Soft, nontender. No hepatosplenomegaly, normal bowel sounds, no gu arding or rigidity. EXTREMITIES: No clubbing, no edema, no cyanosis, 2+ pulses and upper and lower e xtremities. MUSCULOSKELETAL: Muscle strength and tone normal. SPINE: No scoliosis or deformity SKIN: No rashes CENTRAL NERVOUS SYSTEM: Alert and oriented -3. No focal deficits, tone is normal in all 4 extremities. PSYCHIATRIC: Alert and oriented -3. Appropriate affect. Intact judgment and insight. - Labs CBC & Chem 7: 01/05/22 06:10 01/05/22 06:22 Labs: Abnormal Lab Results - Last 24 Hours (Table) 01/04/22 01/04/22 01/05/22 Range/Units 16:15 21:30 06:10 WBC 20.78 H (4.50-10.00) X 10*3/uL RBC 3.75 L (4.40-5.60) X 10*6/uL Hgb 11.5 L (13.0-17.0) g/dL Hct 35.7 L (39.6-50.0) % Immature Gran # 0.16 H (0.00-0.04) X 10*3/uL Neutrophils # 19.30 H (1.80-7.70) X 10*3/uL Lymphocytes # 0.70 L (0.90-5.00) X 10*3/uL Eosinophils # 0 L (0.04-0.35) X 10*3/uL Anion Gap (10.00-18.00) mmol/L Glucose (70-110) mg/dL POC Glucose (mg/dL) 226 H 218 H (70-110) mg/dL 01/05/22 01/05/22 Range/Units 06:22 07:06 WBC (4.50-10.00) X 10*3/uL RBC (4.40-5.60) X 10*6/uL Hgb (13.0-17.0) g/dL Hct (39.6-50.0) % Immature Gran # (0.00-0.04) X 10*3/uL Neutrophils # (1.80-7.70) X 10*3/uL Lymphocytes # (0.90-5.00) X 10*3/uL Eosinophils # (0.04-0.35) X 10*3/uL Anion Gap 8.20 L (10.00-18.00) mmol/L Glucose 176 H (70-110) mg/dL POC Glucose (mg/dL) 178 H (70-110) mg/dL Assessment and Plan Plan: Assessment: #1. Acute hypoxic respiratory failure related to recurrent aspiration pneumonia #2. Chronic dysphagia, on modified diet, awaiting modified barium swallow #3. History of COPD #4. Tobacco dependence syndrome #5. Multiple sclerosis #6. Chronic back pain with previous placement of a spinal stimulator #7. Migraine cephalgia #8. History of Crohn's disease Plan: Continue current antibiotic coverage Maintain aspiration precautions Dysphagia diet per speech recommendations Modified barium swallow Sputum culture Continue breathing treatments Continue steroids Continue to follow I have personally seen and examined the patient, performed the documentation and the assessment and plan as written. Number of minutes spent on the visit: [10] Time with Patient: Less than 30
--- NOTE | 2022-01-05 12:25 | FL ---
Modified barium swallow. HISTORY: Dysphagia. Modified barium swallow was performed with the department of speech pathology. The patient was prese nted with various consistencies of barium. There is no evidence for aspiration or penetration. Full report is to follow from the department of speech pathology. Impression: Normal study.
[2022-01-05] MEDS: HYDROcodone/APAP 7.5-325MG 1 EACH TAB PO PRN (13:40)
[2022-01-05 13:49] VITALS: RESP 16
--- NOTE | 2022-01-05 16:09 | P.PN ---
Subjective Progress Note Date: 01/05/22 This is a 56-year-old male who was recently admitted with COPD acute exacerbation as well as pneumonia and some chest pain and is being closely monitored. Cardiology evaluated the patient and pulmonary is following. Patient continues on 4 L via nasal cannula of oxygen and does not normally require any oxygen in the outpatient setting. Patient reports he does follow with Dr. Leal pulmonary outpatient. Patient is currently maintained on breathing inhalational treatments, IV antibiotics in the form of Zosyn, and IV steroids and continues to be wheezing and bronchospastic and short of breath on exam. Encouraged increase activity as tolerated and wean FiO2 as patient tolerates as well. Patient is on Aldactone and patient potassium mildly elevated at 5.1 and recommend low potassium diet. Recommend continue monitoring Accu-Cheks before meals and at bedtime and will continue with sliding scale. Patient is requesting when he can go home. Patient to undergo swallow study. Review of systems: Constitutional: No reports of fatigue, fever, or chills Cardiovascular: No reports of chest pain or palpitations Respiratory: No reports of worsening shortness of breath or cough GI: no reports of nausea, no reports of of vomiting, no reports of diarrhea : No reports of dysuria or retention Neurovascular: No reports of weakness All medications have been reviewed Active Medications Hydrocodone Bitart/Acetaminophen (Hydrocodone/Apap 7.5-325mg 1 Each Tab) 1 each PO BID PRN PRN Reason: Pain Last Admin: 01/05/22 13:40 Dose: 1 each Albuterol/Ipratropium (Ipratropium-Albuterol 3 Ml Neb) 3 ml INHALATION RT-QID [facility] Last Admin: 01/05/22 11:39 Dose: Not Given Albuterol/Ipratropium (Ipratropium-Albuterol 3 Ml Neb) 3 ml INHALATION RT-Q2H PRN PRN Reason: Shortness Of Breath Or Wheezing Last Admin: 01/04/22 02:42 Dose: 3 ml Baclofen (Baclofen 10 Mg Tab) 20 mg PO BID [facility] Last Admin: 01/05/22 10:09 Dose: 20 mg Budesonide/Formoterol Fumarate (Symbicort 160-4.5 Mcg Inhaler) 2 puff INHALATION RT-BID [facility] Last Admin: 01/05/22 07:10 Dose: 2 puff Carvedilol (Carvedilol 6.25 Mg Tab) 6.25 mg PO BID-W/MEALS [facility] Last Admin: 01/05/22 08:06 Dose: 6.25 mg Duloxetine HCl (Duloxetine Hcl 20 Mg Capsule.Dr) 20 mg PO BID [facility] Last Admin: 01/05/22 10:10 Dose: 20 mg Furosemide (Furosemide 20 Mg Tab) 20 mg PO BID@0900,1600 [facility] Last Admin: 01/05/22 10:10 Dose: 20 mg Heparin Sodium (Porcine) (Heparin Sodium,Porcine/Pf 5,000 Unit/0.5 Ml Syringe) 5,000 unit SQ Q12HR [facility] Last Admin: 01/05/22 10:09 Dose: 5,000 unit Piperacillin Sod/Tazobactam (Sod 3.375 gm/ Sodium Chloride) 100 mls @ 25 mls/hr IVPB Q8H [facility]; Protocol Last Admin: 01/05/22 12:26 Dose: 25 mls/hr Insulin Aspart (Insulin Aspart (Novolog) 100 Unit/Ml Vial) 0 unit SQ ACHS [facility]; Protocol Last Admin: 01/05/22 12:31 Dose: 2 unit Losartan Potassium (Losartan 25 Mg Tab) 25 mg PO DAILY [facility] Last Admin: 01/05/22 10:10 Dose: 25 mg Methylprednisolone Sodium Succinate (Methylprednisolone Sod Succi 125 Mg/2 Ml Vial) 60 mg IV Q6HR [facility] Last Admin: 01/05/22 12:13 Dose: 60 mg Mirtazapine (Mirtazapine 15 Mg Tab) 30 mg PO HS [facility] Last Admin: 01/04/22 22:10 Dose: 30 mg Morphine Sulfate (Morphine Sulfate 4 Mg/Ml Syringe) 4 mg IV Q4HR PRN PRN Reason: Severe Pain Last Admin: 01/04/22 18:24 Dose: 4 mg Morphine Sulfate (Morphine Sulfate Er 15 Mg Tablet) 15 mg PO Q12HR [facility]; Protocol Last Admin: 01/05/22 10:10 Dose: 15 mg Naloxone HCl (Naloxone 0.4 Mg/Ml 1 Ml Vial) 0.2 mg IV Q2M PRN PRN Reason: Opioid Reversal Ondansetron HCl (Ondansetron 4 Mg/2 Ml Vial) 4 mg IVP Q8HR PRN PRN Reason: Nausea And Vomiting Last Admin: 01/04/22 17:42 Dose: 4 mg Pantoprazole Sodium (Pantoprazole 40 Mg Tablet) 40 mg PO DAILY@0730 [facility] Last Admin: 01/05/22 08:06 Dose: 40 mg Pregabalin (Pregabalin 75 Mg Cap) 150 mg PO BID [facility] Last Admin: 01/05/22 10:13 Dose: 150 mg Quetiapine Fumarate (Quetiapine 50 Mg Tab) 50 mg PO [facility] Last Admin: 01/04/22 22:46 Dose: 50 mg Ropinirole HCl (Ropinirole Hcl 1 Mg Tab) 1 mg PO [facility] Last Admin: 01/04/22 22:10 Dose: 1 mg Spironolactone (Spironolactone 25 Mg Tab) 25 mg PO DAILY [facility] Last Admin: 01/05/22 10:10 Dose: 25 mg Sumatriptan Succinate (Sumatriptan Succinate 50 Mg Tab) 50 mg PO BID PRN PRN Reason: Migraine Headache PHYSICAL EXAMINATION: GENERAL: The patient is alert and oriented x4, Well developed, well nourished. HEENT: Pupils are round and equally reacting to light. EOMI. does have scleral icterus. No conjunctival pallor. Normocephalic, atraumatic. No pharyngeal erythema. No thyromegaly. CARDIOVASCULAR: S1 and S2 muffled PULMONARY: diminished breath sounds bilaterally with some scattered rhonchi and expiratory wheezing noted. ABDOMEN: soft. Nontender on exam. obese. non-distended, normoactive bowel sounds. No palpable organomegaly. MUSCULOSKELETAL: No joint swelling or deformity. EXTREMITIES: No cyanosis, clubbing, or pedal edema. NEUROLOGICAL: Gross neurological examination did not reveal any focal deficits. SKIN: No rashes. Assessment: Chronic obstructive pulmonary disease, acute exacerbation with bilateral pneumonia, right more than left Chest pain, myocardial infarction ruled out History of chronic obstructive pulmonary disease History of congestive heart failure Multiple sclerosis, reports to being worked up in the outpatient setting for Parkinsons Continued ongoing nicotine dependence GI prophylaxis DVT prophylaxis Full code Plan: Recommend to continue with current medications and management with pulmonary following. He is maintained on IV antibiotics in the form of Zosyn and also continued on IV steroids and breathing inhalational treatments and will continue. Patient currently maintained on 4 L via nasal cannula and recommend a wean as tolerated. Patient does not wear any oxygen in the outpatient setting. Patient also having some difficulty in swallowing and underwent modified barium swallow study which was normal and patient reported to speech he has difficulty with food getting stuck in the esophagus and recommending esophagram. Sputum culture has been ordered but not collected. Potassium mildly elevated at 5.1 an d recommend low potassium diet will follow-up with repeat labs. The impression and plan of care has been dictated by Rosa Guevara, nurse practitioner as directed. Dr. Heriberto MD I have performed a history and examination and MDM of this patient, discussed the same with the dictator, and agree with the dictator's assessment and plan as written ,documented as a scribe. Based on total visit time, I have performed more than 50% of the visit. Any additional findings or plans will be noted. Objective - Vital Signs Vital signs: Vital Signs Temp 97.7 F 01/05/22 07:00 Pulse 79 01/05/22 07:32 Resp 18 01/05/22 07:22 BP 111/79 01/05/22 07:32 Pulse Ox 91 L 01/05/22 07:10 FiO2 Intake & Output 01/04/22 01/05/22 01/05/22 18:59 06:59 18:59 Intake Total 538 1080 180 Balance 538 1080 180 Weight 92.9 kg Intake: Oral 538 1080 180 Other: Voiding Method Toilet Toilet # Voids 2 - Labs CBC & Chem 7: 01/05/22 06:10 01/05/22 06:22 Labs: Abnormal Lab Results - Last 24 Hours (Table) 01/04/22 01/04/22 01/04/22 Range/Units 11:46 16:15 21:30 POC Glucose (mg/dL) 149 H 226 H 218 H (70-110) mg/dL 01/05/22 Range/Units 07:06 POC Glucose (mg/dL) 178 H (70-110) mg/dL
[2022-01-05 16:19] LABS: Glucose,Whole Blood 140 mg/dL (70-110)
[2022-01-05 20:46] LABS: Glucose,Whole Blood 190 mg/dL (70-110)
[2022-01-06] MEDS: PREGABALIN 75 MG CAP PO SCH ×2 (00:26→08:13)
[2022-01-06] MEDS: MIRTAZAPINE 15 MG TAB PO SCH (00:26)
[2022-01-06] MEDS: MORPHINE SULFATE ER 15 MG TABLET PO SCH ×2 (00:26→08:12)
[2022-01-06] MEDS: PIPERACILLIN-TAZOBACTAM 3.375 GM in SODIUM CHLORIDE 0.9% 100 ML IVPB SCH ×3 (00:27→12:14)
[2022-01-06] MEDS: DULoxetine HCL 20 MG CAPSULE.DR PO SCH ×2 (00:27→08:13)
[2022-01-06] MEDS: HEPARIN SODIUM,PORCINE/PF 5,000 UNIT/0.5 ML SYRINGE SQ SCH ×2 (00:27→08:14)
[2022-01-06] MEDS: INSULIN ASPART (NovoLOG) 100 UNIT/ML VIAL SQ SCH ×3 (00:27→12:07)
[2022-01-06] MEDS: BACLOFEN 10 MG TAB PO SCH ×2 (00:27→08:12)
[2022-01-06] MEDS: methylPREDNISolone SOD SUCCI 125 MG/2 ML VIAL IV SCH ×2 (00:28→05:40)
[2022-01-06 00:59] LABS: Glucose,Whole Blood 154 mg/dL (70-110)
[2022-01-06] MEDS: QUEtiapine 50 MG TAB PO SCH (01:20)
[2022-01-06] MEDS: HYDROcodone/APAP 7.5-325MG 1 EACH TAB PO PRN (05:39)
[2022-01-06 07:24] LABS: Glucose,Whole Blood 138 mg/dL (70-110)
[2022-01-06 07:32] LABS: African American GFR (CKD) >90 (>60 ml/min/1.73 sqM); Anion Gap 6 mmol/L; Blood Urea Nitrogen 18 mg/dL (9-20); Calcium 8.7 mg/dL (8.4-10.2); Carbon Dioxide 27 mmol/L (22-30); Chloride 101 mmol/L (98-107); Glucose 173 mg/dL (74-99); Non-African American GFR(CKD) >90 (>60 ml/min/1.73 sqM); Potassium 4.5 mmol/L (3.5-5.1); Sodium 134 mmol/L (137-145)
[2022-01-06] MEDS: PANTOPRAZOLE 40 MG TABLET PO SCH (08:11)
[2022-01-06] MEDS: carvediloL 6.25 MG TAB PO SCH (08:12)
[2022-01-06] MEDS: LOSARTAN 25 MG TAB PO SCH (08:13)
[2022-01-06] MEDS: FUROSEMIDE 20 MG TAB PO SCH (08:13)
[2022-01-06] MEDS: SPIRONOLACTONE 25 MG TAB PO SCH (08:13)
[2022-01-06] MEDS: SYMBICORT 160-4.5 MCG INHALER INHALATION SCH (08:23)
[2022-01-06] MEDS: IPRATROPIUM-ALBUTEROL 3 ML NEB INHALATION SCH ×2 (08:23→11:44)
[2022-01-06] MEDS ORDERED: FUROSEMIDE 10 MG/ML 4 ML VIAL IV STA (10:49)
[2022-01-06 11:13] LABS: Glucose,Whole Blood 121 mg/dL (70-110)
[2022-01-06] MEDS ORDERED: methylPREDNISolone SOD SUCCI 40 MG/ML 1 ML VIAL IV SCH (12:00)
--- NOTE | 2022-01-06 13:26 | XR ---
EXAMINATION TYPE: XR chest 2V DATE OF EXAM: 01/06/2022 COMPARISON: Chest x-ray 3 days ago. HISTORY: Pneumonia. TECHNIQUE: Frontal and lateral views of the chest are obtained. FINDINGS: Anterior fusion plate cervical thoracic junction redemonstrated. There are new small bilat eral pleural effusions. Persistent bibasilar opacities. Persistent mild cardiomegaly. No pneumothorax is seen. IMPRESSION: Correlate for CHF exacerbation or fluid overload state. Stable mild cardiomegaly with ne w small bilateral pleural effusions. Bibasilar opacities on current study favor compressive atelectat ic change.
--- NOTE | 2022-01-06 13:30 | P.PN ---
Subjective Progress Note Date: 01/06/22 This is a 56-year-old white male, 20.-pack-year smoking history known history of COPD, nonischemic cardiomyopathy pleurisy, history of multiple sclerosis, Crohn's disease, chronic anemia, and history of migraine cephalgia. Patient is being followed by neurology/Dr. Carlin and being evaluated for possible Parkinson's disease. Patient describes chronic difficulty with swallowing, however he had no previous workup to evaluate his dysphagia. Patient was admitted back on 12/19/2021, and he was admitted last time seen by Dr. Espinosa on consultation, and he was diagnosed as having bilateral pneumonia. CT angiogram on this last admission showed significant bronchial impaction in the bronchus intermedius as well as middle lobe and bilateral lower lobes of bronchitis. There was also complete collapse of the middle lobe with subsegmental atelectasis of the right lower lobe. Patient was treated mostly with antibiotics, bronchodilators, and steroids, and he felt much better, discharged home. Patient is back to the hospital yesterday with similar complaints. Apparently he was at his son's libertarian, patient developed an episode of epigastric discomfort followed by nausea and vomiting and he went on to develop left-sided chest pain, pleuritic in nature, lasted about 2 hours, and he was also complain ing of shortness of breath. Brought into ER, chest x-ray showed similar findings in the right lower lobe and left lower lobe patient was admitted and this consult was initiated. Going back to his last admission from 2 weeks ago, patient had an echocardiogram showing LV dysfunction with ejection fraction of 35-40%, generalized hypokinesia, and the patient was treated with Lasix on the last admission. After reevaluating the patient, I recommended that we place the patient on Zosyn instead of Rocephin and Zithromax, and recommended consultation with the speech therapist and swallow evaluation, patient may even require EGD for further evaluation of his chronic dysphagia On 01/05/2022 patient seen in follow-up on medical surgical floor. He is resting comfortably in bed, remains on 4 L of oxygen pulse ox of 91%, does not appear to be in any acute distress, altered mentation, sounds better on today exam. He had a speech evaluation at the bedside, was noted to have difficulty swallowing yesterday at lunch, was recommended dysphagia diet, and modified barium swallow is scheduled for today. Otherwise no complaints of chest discomfort, no fever. Continues on Zosyn for possibility of aspiration related pneumonia The patient is seen today 01/06/2022 in follow-up on the regular medical floor. He is currently up ambulating in his room. Awake and alert in no acute distress. Feeling quite a bit better today. No worsening shortness of breath, cough or congestion. No fever or chills. Maintaining good O2 saturations in the 90s on 4 L/m per nasal cannula. Follow-up chest x-ray does show improvement. He remains on Symbicort, DuoNeb inhalations, IV Solu-Medrol and Zosyn. Modified barium swallow revealed no evidence of aspiration or penetration. Objective - Vital Signs Vital signs: Vital Signs Temp 97.4 F L 01/06/22 05:50 Pulse 86 01/06/22 12:22 Resp 16 01/06/22 05:50 BP 114/72 01/06/22 05:50 Pulse Ox 99 01/06/22 12:22 FiO2 Intake & Output 01/05/22 01/06/22 01/06/22 18:59 06:59 18:59 Intake Total 360 1080 358 Balance 360 1080 358 Weight 94.1 kg Intake: Oral 360 1080 358 Other: Voiding Method Toilet # Voids 3 # Bowel Movements 0 - Exam GENERAL EXAM: Alert, active, 56-year-old male patient, on 4 L nasal cannula, comfortable in no apparent distress. HEAD: Normocephalic. EYES: Normal reaction of pupils, equal size. NOSE: Clear with pink turbinates. THROAT: No erythema or exudates. NECK: No masses, no JVD. CHEST: No chest wall deformity. LUNGS: Equal air entry with no crackles, wheeze, rhonchi or dullness. CVS: S1 and S2 normal with no audible murmur, regular rhythm. ABDOMEN: No hepatosplenomegaly, normal bowel sounds, no guarding or rigidity. SPINE: No scoliosis or deformity SKIN: No rashes CENTRAL NERVOUS SYSTEM: No focal deficits, tone is normal in all 4 extremities. EXTREMITIES: There is no peripheral edema. No clubbing, no cyanosis. Peripheral pulses are intact. - Labs CBC & Chem 7: 01/05/22 06:10 01/06/22 06:52 Labs: Abnormal Lab Results - Last 24 Hours (Table) 01/05/22 01/05/22 01/06/22 Range/Units 16:16 20:44 00:58 Sodium (137-145) mmol/L Glucose (74-99) mg/dL POC Glucose (mg/dL) 140 H 190 H 154 H (70-110) mg/dL 01/06/22 01/06/22 01/06/22 Range/Units 06:52 07:23 11:11 Sodium 134 L (137-145) mmol/L Glucose 173 H (74-99) mg/dL POC Glucose (mg/dL) 138 H 121 H (70-110) mg/dL Assessment and Plan Assessment: 1 Acute hypoxic respiratory failure related to recurrent pneumonia. Modified b arium swallow revealed no evidence of aspiration. Follow-up chest x-ray shows near complete resolution 2 Chronic dysphagia, on modified diet 3 History of COPD 4 Tobacco dependence syndrome 5 Multiple sclerosis 6 Chronic back pain with previous placement of a spinal stimulator 7 Migraine cephalgia 8 History of Crohn's disease Plan: The patient was seen and evaluated Clinically improved, chest x-ray improved Cleared for discharge from the pulmonary system Complete a 7 day course of Augmentin Complete a prednisone taper starting at 30 mg daily for 4 days Continue Symbicort and albuterol HFA Follow-up in the office in 1-2 weeks' I have personally seen and examined the patient, performed the documentation and the assessment and plan as written. Number of minutes spent on the visit: 10.
[2022-01-06 14:23] VITALS: BP 129/76; PULSE 72; TEMP 98
--- NOTE | 2022-01-07 02:29 | P.DS ---
Providers Date of admission: 01/03/22 02:31 Expected date of discharge: 01/06/22 Attending physician: Mack Fox Consults: 01/03/22 02:31 Consult Physician Routine Consulting Provider: Noemí Pandya Consult Reason/Comments: cp Do you want consulting provider notified?: Yes 01/03/22 12:52 Consult Physician Routine Consulting Provider: Rio Terry Consult Reason/Comments: pneumonia Do you want consulting provider notified?: Yes Primary care physician: Mack Fox Hospital Course: Final diagnosis Discharge disposition Patient is being discharged in a stable condition with guarded prognosis to home. Patient will follow-up with Dr. Fox and Dr. Terry pulmonary in the outpatient setting upon discharge. Patient is to continue with oral augmentin bid x one week and prednisone taper. Total time taken is greater than 35 minutes. Hospital course This is a 56-year-old male who was recently admitted with increasing shortness of breath with COPD and pna and was being closely monitored. Patient was maintained on IV antibiotics, IV steroids and breathing inhalational treatments with pulmonary following. Chest xray today reviewed showing near resolution and has been cleared by pulmonary for discharge with oral augmentin and pred taper. Patient is on room air and no longer requiring supplemental oxygen. Patient with chf recommend ever[place] hose for bilateral lower extremity edema and weight gain and is maintained on oral lasix. elevate lower extremities while at rest. PCP follow up next week with some labs ordered. Patient reports to feeling much better and asking to go home. Currently no reports of chest pain, worsening shortness of breath, or palpitations. Patient is afebrile. No reports of nausea or vomiting and patient is tolerating diet. Patient will be discharged home today. guarded prognosis. Physical exam: Gen: This is a 56-year-old male awake, alert and oriented 3, well-developed, well-nourished HEENT: Head is atraumatic, normocephalic. Pupils equal, round. Sclerae is anicteric. NECK: Supple. No JVD. No lymphadenopathy. No thyromegaly. LUNGS: Clear to auscultation. some rhonchi. No intercostal retractions. HEART: Regular rate and rhythm. No murmur. ABDOMEN: Soft. Bowel sounds are present. No masses. No tenderness. EXTREMITIES: No pedal edema. No calf tenderness. minimal lower extremity edema NEUROLOGICAL: Patient is awake, alert and oriented x3. Cranial nerves 2 through 12 are grossly intact. Please refer to medication reconciliation sheet for a list of medications. The impression and plan of care has been dictated by Rosa Guevara, Nurse Practitioner as directed. Dr. Heriberto MD I have performed a history and examination and MDM of this patient, discussed the same with the dictator, and agree with the dictator's assessment and plan as written ,documented as a scribe. Based on total visit time, I have performed more than 50% of the visit. Patient Condition at Discharge: Good Plan - Discharge Summary Discharge Rx Participant: No New Discharge Prescriptions: New Amoxic-Pot Clav 875-125Mg [Augmentin 875-125] 1 tab PO Q12HR 7 Days #14 tab Ipratropium-Albuterol Nebulize [Duoneb 0.5 mg-3 mg/3 ml Soln] 3 ml INHALATION RT-Q2H PRN each PRN Reason: Shortness Of Breath Or Wheezing predniSONE 10 mg PO DIRECTED #30 tab Ipratropium-Albuterol Nebulize [Duoneb 0.5 mg-3 mg/3 ml Soln] 3 ml INHALATION RT-QID 30 Days #60 each Budesonide-Formot 160-4.5 Mcg [Symbicort 160-4.5 Mcg Inhaler] 2 puff INHALATION RT-BID 30 Days #1 each Continue Baclofen [Lioresal] 20 mg PO BID HYDROcodone/APAP 7.5-325MG [[place] 7.5-325] 1 tab PO BID PRN PRN Reason: Pain Mirtazapine [Remeron] 30 mg PO HS Pantoprazole Sodium [Protonix] 40 mg PO DAILY Morphine Sulfate [Ms Contin] 15 mg PO Q12HR QUEtiapine [SEROquel] 50 mg PO HS rOPINIRole HCL [Requip] 1 mg PO HS DULoxetine HCL [Cymbalta] 20 mg PO BID Furosemide [Lasix] 20 mg PO BID@0900,1600 #60 tab carvediloL [Coreg] 6.25 mg PO BID-W/MEALS #60 tablet SUMAtriptan succinate [Imitrex] 50 mg PO BID PRN PRN Reason: Migraine Headache Pregabalin 150 mg PO BID Spironolactone [Aldactone] 25 mg PO DAILY #30 tab Losartan [Cozaar] 25 mg PO DAILY #30 tab Albuterol Inhaler [Ventolin Hfa Inhaler] 2 puff INHALATION RT-QID PRN PRN Reason: Shortness Of Breath Discharge Medication List Baclofen [Lioresal] 20 mg PO BID 12/21/15 [History] HYDROcodone/APAP 7.5-325MG [[place] 7.5-325] 1 tab PO BID PRN 04/17/20 [History] Mirtazapine [Remeron] 30 mg PO HS 04/17/20 [History] Pantoprazole Sodium [Protonix] 40 mg PO DAILY 04/17/20 [History] Morphine Sulfate [Ms Contin] 15 mg PO Q12HR 01/28/21 [History] Pregabalin 150 mg PO BID 09/14/21 [History] QUEtiapine [SEROquel] 50 mg PO HS 09/14/21 [History] SUMAtriptan succinate [Imitrex] 50 mg PO BID PRN 09/14/21 [History] rOPINIRole HCL [Requip] 1 mg PO HS 09/17/21 [History] DULoxetine HCL [Cymbalta] 20 mg PO BID 12/22/21 [History] Furosemide [Lasix] 20 mg PO BID@0900,1600 #60 tab 12/26/21 [Rx] Spironolactone [Aldactone] 25 mg PO DAILY #30 tab 12/26/21 [Rx] carvediloL [Coreg] 6.25 mg PO BID-W/MEALS #60 tablet 12/26/21 [Rx] Losartan [Cozaar] 25 mg PO DAILY #30 tab 12/30/21 [Rx] Albuterol Inhaler [Ventolin Hfa Inhaler] 2 puff INHALATION RT-QID PRN 01/03/22 [History] Amoxic-Pot Clav 875-125Mg [Augmentin 875-125] 1 tab PO Q12HR 7 Days #14 tab 01/06/22 [Rx] Budesonide-Formot 160-4.5 Mcg [Symbicort 160-4.5 Mcg Inhaler] 2 puff INHALATION RT-BID 30 Days #1 each 01/06/22 [Rx] Ipratropium-Albuterol Nebulize [Duoneb 0.5 mg-3 mg/3 ml Soln] 3 ml INHALATION RT-Q2H PRN each 01/06/22 [Rx] Ipratropium-Albuterol Nebulize [Duoneb 0.5 mg-3 mg/3 ml Soln] 3 ml INHALATION RT-QID 30 Days #60 each 01/06/22 [Rx] predniSONE 10 mg PO DIRECTED #30 tab 01/06/22 [Rx] Follow up Appointment(s)/Referral(s): Mack Fox DO [Primary Care Provider] - 1-2 days Jimi Geronimo MD [STAFF PHYSICIAN] - 1 Week Rita Geronimo MD [STAFF PHYSICIAN] - 1 Week Patient Instructions/Handouts: Chest Pain (DC), COPD (Chronic Obstructive Pulmonary Disease) (DC) Activity/Diet/Wound Care/Special Instructions: Activity Limited until follow-up Follow-up with primary care provider on discharge Follow-up with pulmonary in 1-2 weeks Continue taking antibiotics for 1 week Continue a prednisone taper starting at 30 mg daily for 4 days and tapering down Continue with albuterol and Symbicort inhalers May use nebulizer treatments every 6 hours as needed Recommend continue with diet as tolerated and recommending possible soft diet and follow-up with GI in the outpatient setting for dysphagia Avoid any tobacco use or exposure Continue with compression stockings and elevate lower extremities while at rest Discharge Disposition: HOME SELF-CARE
== END 2022-01-06 15:25 | disposition home or self-care (01) | DRG 177 ==
LOC: EC 01:10 → 3SCARD 02:31 → 4SSUR 01-04 15:51
PROVIDERS: ADMIT Family Medicine; ATTEND Family Medicine
DX: J69.0 Pneumonitis due to inhalation of food and vomit (principal); J96.01 Acute respiratory failure with hypoxia; I42.8 Other cardiomyopathies; J44.0 Chronic obstructive pulmonary disease with (acute) lower respiratory infection; J44.1 Chronic obstructive pulmonary disease with (acute) exacerbation; J98.11 Atelectasis; K50.90 Crohn's disease, unspecified, without complications; F17.210 Nicotine dependence, cigarettes, uncomplicated; G20 Parkinson's disease; G35 Multiple sclerosis; G43.909 Migraine, unspecified, not intractable, without status migrainosus; G89.29 Other chronic pain; M54.2 Cervicalgia; I50.9 Heart failure, unspecified; R13.10 Dysphagia, unspecified; Z82.3 Family history of stroke; Z83.3 Family history of diabetes mellitus; Z87.01 Personal history of pneumonia (recurrent); Z79.899 Other long term (current) drug therapy; Z28.310 Unvaccinated for COVID-19; Z91.81 History of falling; H57.9 Unspecified disorder of eye and adnexa; Z80.9 Family history of malignant neoplasm, unspecified; Z96.82 Presence of neurostimulator; D64.9 Anemia, unspecified; F32.A Depression, unspecified; Z86.14 Personal history of Methicillin resistant Staphylococcus aureus infection
CPT/HCPCS: 36415; 71045; 71046; 74230; 80048; 80053; 83690; 83735; 83880; 84100; 84145; 84484; 85025; 85610; 85730; 87502; 87635; 93005; 94640; 94760; 96361; 96365; 96366; 96368; 96372; 96375; 96376; 99285

== ENCOUNTER 2022-01-12 19:12 | Observation (INO) | payer MEDICARE ==
--- NOTE | 2022-01-12 19:33 | ED ---
General Adult HPI - General Chief complaint: Chest Pain Stated complaint: Chest Pain Time Seen by Provider: 01/12/22 19:16 Source: patient, RN notes reviewed, old records reviewed Mode of arrival: ambulatory Limitations: no limitations - History of Present Illness Initial comments: 56-year-old male presenting for evaluation of chest pain, pain radiating to the left upper chest and left arm. This began about one hour prior to arrival and has somewhat subsided at the time my evaluation. There was no associated vomiting. No abdominal pain. Patient's states she has recent diagnosis of congestive heart failure. He is scheduled for heart catheterization in the near future. He has no previous CAD history that he reports. - Related Data Home Medications Medication Instructions Recorded Confirmed Baclofen [Lioresal] 20 mg PO BID 12/21/15 01/03/22 HYDROcodone/APAP 7.5-325MG [[place] 1 tab PO BID PRN 04/17/20 01/03/22 7.5-325] Mirtazapine [Remeron] 30 mg PO HS 04/17/20 01/03/22 Pantoprazole Sodium [Protonix] 40 mg PO DAILY 04/17/20 01/03/22 Morphine Sulfate [Ms Contin] 15 mg PO Q12HR 01/28/21 01/03/22 Pregabalin 150 mg PO BID 09/14/21 01/03/22 QUEtiapine [SEROquel] 50 mg PO HS 09/14/21 01/03/22 SUMAtriptan succinate [Imitrex] 50 mg PO BID PRN 09/14/21 01/03/22 rOPINIRole HCL [Requip] 1 mg PO HS 09/17/21 01/03/22 DULoxetine HCL [Cymbalta] 20 mg PO BID 12/22/21 01/03/22 Albuterol Inhaler [Ventolin Hfa 2 puff INHALATION RT-QID PRN 01/03/22 01/03/22 Inhaler] Previous Rx's Medication Instructions Recorded Furosemide [Lasix] 20 mg PO BID@0900,1600 #60 tab 12/26/21 Spironolactone [Aldactone] 25 mg PO DAILY #30 tab 12/26/21 carvediloL [Coreg] 6.25 mg PO BID-W/MEALS #60 tablet 12/26/21 Losartan [Cozaar] 25 mg PO DAILY #30 tab 12/30/21 Amoxic-Pot Clav 875-125Mg 1 tab PO Q12HR 7 Days #14 tab 01/06/22 [Augmentin 875-125] Budesonide-Formot 160-4.5 Mcg 2 puff INHALATION RT-BID 30 Days 01/06/22 [Symbicort 160-4.5 Mcg Inhaler] #1 each Ipratropium-Albuterol Nebulize 3 ml INHALATION RT-Q2H PRN each 01/06/22 [Duoneb 0.5 mg-3 mg/3 ml Soln] Ipratropium-Albuterol Nebulize 3 ml INHALATION RT-QID 30 Days #60 01/06/22 [Duoneb 0.5 mg-3 mg/3 ml Soln] each predniSONE 10 mg PO DIRECTED #30 tab 01/06/22 Allergies Allergy/AdvReac Type Severity Reaction Status Date / Time lisinopril AdvReac Swelling Verified 01/12/22 19:16 Review of Systems ROS Statement: Those systems with pertinent positive or pertinent negative responses have been documented in the HPI. ROS Other: All systems not noted in ROS Statement are negative. Past Medical History Past Medical History: Heart Failure, COPD, Eye Disorder, Musculoskeletal Disorder, Neurologic Disorder Additional Past Medical History / Comment(s): Multiple sclerosis USES A CANE TO AMBULATE, falls. has had in past occasional DOUBLE VISION. CHRONIC BACK NECK PAIN. HAD SPINAL STIMULATOR, THEN REMOVED; Migraine headache. Crohn's disease.lt ear [place] History of Any Multi-Drug Resistant Organisms: MRSA Date of last positivie culture/infection: 2014 MDRO Source:: lower back Past Surgical History: Appendectomy, Back Surgery, Bowel Resection, Hernia Repair Additional Past Surgical History / Comment(s): CERVICAL FUSION. SPINAL STIMULATOR implantation, revision and removal. FOREIGN BODY REMOVED RT CHEST WALL. 10/18/2015 wire removed from back. (from stimulator) Past Anesthesia/Blood Transfusion Reactions: Previous Problems w/ Anesthesia Additional Past Anesthesia/Blood Transfusion Reaction / Comment(s): STATES TAKES A LONG TIME TO WAKE UP Past Psychological History: Depression Smoking Status: Current every day smoker Past Alcohol Use History: Occasional Past Drug Use History: Marijuana - Past Family History Father Family Medical History: Cancer, Diabetes Mellitus Additional Family Medical History / Comment(s): CABG-TRIPLE BYPASS, Mother Family Medical History: Cancer, CVA/TIA, Diabetes Mellitus Additional Family Medical History / Comment(s): Stroke Brother(s) Additional Family Medical History / Comment(s): cardiomyopathy General Exam Limitations: no limitations General appearance: alert, in no apparent distress Head exam: Present: atraumatic, normocephalic Eye exam: Present: normal appearance, PERRL ENT exam: Present: normal exam Neck exam: Present: normal inspection. Absent: tenderness, meningismus Respiratory exam: Present: normal lung sounds bilaterally. Absent: respiratory distress, wheezes Cardiovascular Exam: Present: regular rate, normal rhythm GI/Abdominal exam: Present: soft. Absent: distended, tenderness, guarding Extremities exam: Present: normal inspection, normal capillary refill. Absent: calf tenderness Neurological exam: Present: alert, oriented X3, CN II-XII intact. Absent: motor sensory deficit Psychiatric exam: Present: normal affect, normal mood Skin exam: Present: warm, dry, intact. Absent: cyanosis, diaphoretic Course Vital Signs 01/12/22 19:14 Temperature 98 F Pulse Rate 100 Respiratory 22 Rate Blood Pressure 143/88 O2 Sat by Pulse 100 Oximetry EKG Findings - EKG Comments: EKG Findings:: EKG: Sinus rhythm with PVC rate of 77, ID interval 125, QRS duration 89, QTC 375. No ST segment elevation. Medical Decision Making - Medical Decision Making 56-year-old male with chest pain prior to arrival. EKG is sinus without definitive signs of ischemia. Chest x-ray is clear. Initial laboratory testing is unremarkable. First troponin is negative. He will be kept in observation for stroke or headache enzymes, telemetry, cardiology consultation. Case discussed with Dr. Fox who will admit. - Lab Data Result diagrams: 01/12/22 19:44 01/12/22 19:44 Lab Results 01/12/22 01/12/22 01/12/22 Range/Units 19:44 19:44 19:44 WBC 12.5 H (3.8-10.6) k/uL RBC 4.37 (4.30-5.90) m/uL Hgb 13.4 (13.0-17.5) gm/dL Hct 42.1 (39.0-53.0) % MCV 96.3 (80.0-100.0) fL MCH 30.7 (25.0-35.0) pg MCHC 31.9 (31.0-37.0) g/dL RDW 13.1 (11.5-15.5) % Plt Count 297 (150-450) k/uL MPV 7.6 Neutrophils % 79 % Lymphocytes % 14 % Monocytes % 5 % Eosinophils % 1 % Basophils % 1 % Neutrophils # 9.9 H (1.3-7.7) k/uL Lymphocytes # 1.7 (1.0-4.8) k/uL Monocytes # 0.6 (0-1.0) k/uL Eosinophils # 0.1 (0-0.7) k/uL Basophils # 0.1 (0-0.2) k/uL PT 9.7 (9.0-12.0) sec INR 0.9 (<1.2) APTT 22.7 (22.0-30.0) sec Sodium 131 L (137-145) mmol/L Potassium 4.6 (3.5-5.1) mmol/L Chloride 99 (98-107) mmol/L Carbon Dioxide 27 (22-30) mmol/L Anion Gap 5 mmol/L BUN 18 (9-20) mg/dL Creatinine 0.84 (0.66-1.25) mg/dL Est GFR (CKD-EPI)AfAm >90 (>60 ml/min/1.73 sqM) Est GFR (CKD-EPI)NonAf >90 (>60 ml/min/1.73 sqM) Glucose 120 H (74-99) mg/dL Calcium 9.4 (8.4-10.2) mg/dL Magnesium 1.8 (1.6-2.3) mg/dL Total Bilirubin 0.3 (0.2-1.3) mg/dL AST 19 (17-59) U/L ALT 19 (4-49) U/L Alkaline Phosphatase 99 (38-126) U/L Troponin I (0.000-0.034) ng/mL NT-Pro-B Natriuret Pep pg/mL Total Protein 6.2 L (6.3-8.2) g/dL Albumin 3.7 (3.5-5.0) g/dL 01/12/22 01/12/22 Range/Units 19:44 19:44 WBC (3.8-10.6) k/uL RBC (4.30-5.90) m/uL Hgb (13.0-17.5) gm/dL Hct (39.0-53.0) % MCV (80.0-100.0) fL MCH (25.0-35.0) pg MCHC (31.0-37.0) g/dL RDW (11.5-15.5) % Plt Count (150-450) k/uL MPV Neutrophils % % Lymphocytes % % Monocytes % % Eosinophils % % Basophils % % Neutrophils # (1.3-7.7) k/uL Lymphocytes # (1.0-4.8) k/uL Monocytes # (0-1.0) k/uL Eosinophils # (0-0.7) k/uL Basophils # (0-0.2) k/uL PT (9.0-12.0) sec INR (<1.2) APTT (22.0-30.0) sec Sodium (137-145) mmol/L Potassium (3.5-5.1) mmol/L Chloride (98-107) mmol/L Carbon Dioxide (22-30) mmol/L Anion Gap mmol/L BUN (9-20) mg/dL Creatinine (0.66-1.25) mg/dL Est GFR (CKD-EPI)AfAm (>60 ml/min/1.73 sqM) Est GFR (CKD-EPI)NonAf (>60 ml/min/1.73 sqM) Glucose (74-99) mg/dL Calcium (8.4-10.2) mg/dL Magnesium (1.6-2.3) mg/dL Total Bilirubin (0.2-1.3) mg/dL AST (17-59) U/L ALT (4-49) U/L Alkaline Phosphatase (38-126) U/L Troponin I <0.012 (0.000-0.034) ng/mL NT-Pro-B Natriuret Pep 1040 pg/mL Total Protein (6.3-8.2) g/dL Albumin (3.5-5.0) g/dL Disposition Clinical Impression: Chest pain Disposition: ADMITTED IP TO THIS HOSP Condition: Stable Is patient prescribed a controlled substance at d/c from ED?: No Referrals: Mack Fox DO [Primary Care Provider] - 1-2 days Time of Disposition: 21:21
[2022-01-12 19:54] LABS: Basophils # (A) 0.1 k/uL (0-0.2); Basophils % (A) 1 %; Eosinophils # (A) 0.1 k/uL (0-0.7); Eosinophils % (A) 1 %; HCT 42.1 % (39.0-53.0); HGB 13.4 gm/dL (13.0-17.5); Lymphocytes # (A) 1.7 k/uL (1.0-4.8); Lymphocytes % (A) 14 %; MCH 30.7 pg (25.0-35.0); MCHC 31.9 g/dL (31.0-37.0); MCV 96.3 fL (80.0-100.0); Mean Platelet Volume 7.6; Monocytes # (A) 0.6 k/uL (0-1.0); Monocytes % (A) 5 %; Neutrophils # (A) 9.9 k/uL (1.3-7.7); Neutrophils % (A) 79 %; Platelet Count 297 k/uL (150-450); RBC 4.37 m/uL (4.30-5.90); RDW 13.1 % (11.5-15.5); WBC 12.5 k/uL (3.8-10.6)
[2022-01-12 20:02] LABS: INR 0.9 (<1.2); Partial Thromboplastin Time 22.7 sec (22.0-30.0); Prothrombin Time 9.7 sec (9.0-12.0)
[2022-01-12 20:04] LABS: ALT 19 U/L (4-49); AST 19 U/L (17-59); African American GFR (CKD) >90 (>60 ml/min/1.73 sqM); Albumin 3.7 g/dL (3.5-5.0); Alkaline Phosphatase 99 U/L (38-126); Anion Gap 5 mmol/L; Blood Urea Nitrogen 18 mg/dL (9-20); Calcium 9.4 mg/dL (8.4-10.2); Carbon Dioxide 27 mmol/L (22-30); Chloride 99 mmol/L (98-107); Glucose 120 mg/dL (74-99); Magnesium 1.8 mg/dL (1.6-2.3); Non-African American GFR(CKD) >90 (>60 ml/min/1.73 sqM); Potassium 4.6 mmol/L (3.5-5.1); Sodium 131 mmol/L (137-145); Total Bilirubin 0.3 mg/dL (0.2-1.3); Total Protein 6.2 g/dL (6.3-8.2)
--- NOTE | 2022-01-12 20:23 | XR ---
EXAMINATION TYPE: XR chest 2V DATE OF EXAM: 01/12/2022 COMPARISON: Chest x-ray 6 days ago. HISTORY: Chest pain. TECHNIQUE: Frontal and lateral views of the chest are obtained. FINDINGS: There is no suspicious focal air space opacity, pleural effusion, or pneumothorax seen. Im provement in aeration in the lung bases. The cardiac silhouette size remains within normal limits. An terior fusion plate lower cervical spine is redemonstrated.. IMPRESSION: No acute process currently.
[2022-01-12] MEDS ORDERED: MORPHINE SULFATE 4 MG/ML SYRINGE IV PRN (21:01)
[2022-01-12] MEDS ORDERED: ASPIRIN 325 MG TAB PO STA (21:01)
[2022-01-12] MEDS ORDERED: ACETAMINOPHEN TAB 325 MG TAB PO PRN (21:01)
[2022-01-12] MEDS ORDERED: NALOXONE 0.4 MG/ML 1 ML VIAL IV PRN (21:01)
[2022-01-13] MEDS ORDERED: HEPARIN SODIUM,PORCINE 10,000 UNIT in SODIUM CHLORIDE 0.9% 1,000 ML IRRIGATION PRN (07:00)
[2022-01-13] MEDS ORDERED: HEPARIN SODIUM,PORCINE 2,500 UNIT in SODIUM CHLORIDE 0.9% 250 ML IRRIGATION PRN (07:00)
[2022-01-13 07:52] VITALS: RESP 18
[2022-01-13] MEDS ORDERED: carvediloL 6.25 MG TAB PO SCH (08:30)
[2022-01-13] MEDS ORDERED: ALPRAZolam 0.5 MG TAB PO PRN (08:47)
[2022-01-13] MEDS ORDERED: ALPRAZolam 0.25 MG TAB PO PRN (08:47)
[2022-01-13] MEDS ORDERED: NITROGLYCERIN SL TABS 0.4 MG TAB SUBLINGUAL PRN (08:47)
[2022-01-13] MEDS ORDERED: ATORVASTATIN 80 MG TAB PO STA (08:47)
[2022-01-13] MEDS ORDERED: LOSARTAN 25 MG TAB PO SCH (09:00)
[2022-01-13] MEDS ORDERED: SPIRONOLACTONE 25 MG TAB PO SCH (09:00)
[2022-01-13] MEDS ORDERED: ASPIRIN 81 MG PO SCH (09:00)
[2022-01-13] MEDS ORDERED: SODIUM CHLORIDE 0.9% 1,000 ML in EMPTY BAG 1 BAG IV SCH (09:00)
[2022-01-13] MEDS ORDERED: FUROSEMIDE 20 MG TAB PO SCH (09:00)
[2022-01-13] MEDS ORDERED: Magnesium Replacement Protocol 1 EACH MISC MISCELLANE PRN (09:27)
[2022-01-13] MEDS ORDERED: HYDROcodone/APAP 7.5-325MG 1 EACH TAB PO PRN (10:02)
[2022-01-13] MEDS ORDERED: IPRATROPIUM-ALBUTEROL 3 ML NEB INHALATION PRN (10:02)
[2022-01-13] MEDS ORDERED: PANTOPRAZOLE 40 MG/10 ML VIAL IVP SCH (10:15)
[2022-01-13] MEDS ORDERED: MORPHINE SULFATE ER 15 MG TABLET PO SCH (10:15)
--- NOTE | 2022-01-13 10:17 | P.CRDCN ---
History of Present Illness History of present illness: This is a 56-year-old male with a past medical history significant for nonischemic cardiomyopathy, chronic back and neck pain, recent admission for Pneumonia. Patient follows in the office with Dr. Geronimo. We have been asked to see the patient in consultation for chest pain. Patient presented to the hospital with a chief complaint of left shoulder, left neck pain and chest pain. He states yesterday morning he began to have left sided neck and left upper shoulder pain. Describes it as sharp and and pressure. He states it lasted all day. Around 6pm he then began to have "excruciating" pressure and sharp chest discomfort. It was non-exertional. Movement, palpation and activity did not make it worse. He states it went away on its own, he did not take nitro. No specific alleviating or aggravating factors. He had associated nausea, shortness of breath, and diaphoresis. No further episodes and his chest pain has now resolved. He denies any associated lightheadedness, dizziness, syncope or near syncope, vomiting, abdominal pain. Denies any injury. No fever or chills. He denies any symptoms of orthopnea or PND. He continues to smoke 1/2 PPD. Patient recently admitted 12/22-12/26 with similar complaints of chest pain and shortness of breath. Chest x-ray and CT findings are suggestive of multiple lesions in the lung. He has been treated with multiple antibiotics for pneumonia. Repeat echo revealed an ejection fraction of about 35-40% with generalized hypokinesia. He was diuresed with IV Lasix and transitioned to PO Lasix. He was then recently admitted again for Pneumonia 01/03/22, cardiology evaluated the patient for chest pain and acute coronary syndrome was ruled out. He followed up with Dr. Geronimo and plan for NEGRITA and cardiac catheterization was planned for 01/20/2022 to evaluate patient for his cardiomyopathy. DIAGNOSTICS * EKG reveals sinus rhythm, heart rate 77, PVC, no acute STT wave abnormalities suggesting acute ischemia * Chest xray - no acute cardiopulmonary process * Laboratory data: Troponin negative 3, sodium 131, potassium 4.6, BUN 18, serum current 0.8, magnesium 1.8, proBNP 1040, WBC 12.5, hemoglobin 13.4, platelets 297 * Current home cardiac medications include Coreg 6.25 mg twice a day, spironalactone 20 mg daily, losartan 25 mg daily, Lasix 20 mg twice a day * Recent echocardiogram obtained 11/2021 revealed an EF 3540 %, moderate mitral regurgitation mild tricuspid regurgitation * Cardiac catheterization history: 2015 revealing normal coronary arteries * Patient underwent Lexiscan stress test in June 2020 which was negative for ischemia REVIEW OF SYSTEMS: At the time of my exam: CONSTITUTIONAL: Denies fever or chills. HEENT: Denies blurred vision, vision changes, or eye pain. Denies hemoptysis CARDIOVASCULAR: + chest pain, resolved. Denies orthopnea. Denies PND. Denies palpitations RESPIRATORY: Reports shortness of breath. GASTROINTESTINAL: Denies abdominal pain. Denies nausea or vomiting. HEMATOLOGIC: Denies bleeding disorders. GENITOURINARY: Denies any blood in urine. SKIN: Denies pruitis. Denies rash. PHYSICAL EXAM: VITAL SIGNS: Reviewed. GENERAL: Well-developed in no acute distress. HEENT: Head is normocephalic. Pupils are equal, round. Sclerae anicteric. Mucous membranes of the mouth are moist. Neck supple. No JVD or thyromegaly LUNGS: Respirations even and unlabored. Lungs diminished bilaterally HEART: Regular rate and rhythm. S1 and S2 heard. Systolic murmur at apex. ABDOMEN: Soft. Nondistended. Nontender. EXTREMITIES: Normal range of motion. No clubbing or cyanosis. Peripheral pulses intact. No lower extremity edema NEUROLOGIC: Awake and alert. Oriented x 3. ASSESSMENT: Chest pain, acute coronary syndrome has been ruled out, with plan for cardiac catheterization scheduled for 01/20/22. Mitral regurgitation, with plan for NEGRITA scheduled 01/20/22 History of nonischemic cardiomyopathy Nicotine dependence History of reaction to lisinopril with angioedema PLAN: Plan for NEGRITA and Cardiac catheterization with Dr. Geronimo today. I have discussed the risks, benefits and alternative therapies for the above- mentioned procedure and for both sedation/analgesia as well as necessary blood product administration, if indicated, as they pertain to this patient. The patient has indicated understanding and acceptance of the risks and procedures discussed. Questions have been answered appropriately and he is agreeable to move forward with the above-stated procedure. Continue home cardiac medications with carvedilol, Losartan, Lasix, spironolactone. Further recommendations based on clinical course On discharge, Follow up outpatient with Dr. Geronimo Nurse practitioner note has been reviewed by physician. Signing provider agrees with the documented findings, assessment, and plan of care. Past Medical History Past Medical History: Heart Failure, COPD, Eye Disorder, Musculoskeletal Disorder, Neurologic Disorder Additional Past Medical History / Comment(s): Multiple sclerosis USES A CANE/ walker TO AMBULATE, falls. has had in past occasional DOUBLE VISION. CHRONIC BACK NECK PAIN. HAD SPINAL STIMULATOR, THEN REMOVED; Migraine headache. Crohn's disease.lt ear [place] History of Any Multi-Drug Resistant Organisms: MRSA Date of last positivie culture/infection: 2014 MDRO Source:: lower back Past Surgical History: Appendectomy, Back Surgery, Bowel Resection, Hernia Repair Additional Past Surgical History / Comment(s): CERVICAL FUSION. SPINAL STIMULATOR implantation, revision and removal. FOREIGN BODY REMOVED RT CHEST WALL. 10/18/2015 wire removed from back. (from stimulator) Past Anesthesia/Blood Transfusion Reactions: Previous Problems w/ Anesthesia Additional Past Anesthesia/Blood Transfusion Reaction / Comment(s): STATES TAKES A LONG TIME TO WAKE UP Past Psychological History: Anxiety, Depression Additional Psychological History / Comment(s): Pt resides with his spouse and 3 sons. He uses a walker. He drives. Smoking Status: Current every day smoker Past Alcohol Use History: Occasional Additional Past Alcohol Use History / Comment(s): Smoker Since Age 13, smoked 1ppd now down to 1/2 ppd. Past Drug Use History: Marijuana - Past Family History Father Family Medical History: Cancer, Diabetes Mellitus Additional Family Medical History / Comment(s): CABG-TRIPLE BYPASS, Mother Family Medical History: Cancer, CVA/TIA, Diabetes Mellitus Additional Family Medical History / Comment(s): Stroke Brother(s) Additional Family Medical History / Comment(s): cardiomyopathy Medications and Allergies Home Medications Medication Instructions Recorded Confirmed Type Baclofen [Lioresal] 20 mg PO BID 12/21/15 01/12/22 History HYDROcodone/APAP 7.5-325MG [[place] 1 tab PO BID PRN 04/17/20 01/12/22 History 7.5-325] Pantoprazole Sodium [Protonix] 40 mg PO DAILY 04/17/20 01/12/22 History Morphine Sulfate [Ms Contin] 15 mg PO Q12H 01/28/21 01/12/22 History Pregabalin 150 mg PO BID 09/14/21 01/12/22 History QUEtiapine [SEROquel] 50 mg PO HS 09/14/21 01/12/22 History SUMAtriptan succinate [Imitrex] 50 mg PO BID PRN 09/14/21 01/12/22 History rOPINIRole HCL [Requip] 1 mg PO HS 09/17/21 01/12/22 History DULoxetine HCL [Cymbalta] 20 mg PO BID 12/22/21 01/12/22 History Furosemide [Lasix] 20 mg PO BID@0900,1600 #60 tab 12/26/21 01/12/22 Rx Spironolactone [Aldactone] 25 mg PO DAILY #30 tab 12/26/21 01/12/22 Rx carvediloL [Coreg] 6.25 mg PO BID-W/MEALS #60 tablet 12/26/21 01/12/22 Rx Losartan [Cozaar] 25 mg PO DAILY #30 tab 12/30/21 01/12/22 Rx Albuterol Inhaler [Ventolin Hfa 2 puff INHALATION RT-QID PRN 01/03/22 01/12/22 History Inhaler] Amoxic-Pot Clav 875-125Mg 1 tab PO Q12HR 7 Days #14 tab 01/06/22 01/12/22 Rx [Augmentin 875-125] Ipratropium-Albuterol Nebulize 3 ml INHALATION RT-Q2H PRN each 01/06/22 01/12/22 Rx [Duoneb 0.5 mg-3 mg/3 ml Soln] Ipratropium-Albuterol Nebulize 3 ml INHALATION RT-QID 30 Days #60 01/06/22 01/12/22 Rx [Duoneb 0.5 mg-3 mg/3 ml Soln] each Fluticasone Propion/Salmeterol 2 puff INHALATION RT-BID 01/12/22 01/12/22 History [Advair Hfa 230-21 Mcg Inhaler] Mirtazapine [Remeron] 15 mg PO HS 01/12/22 01/12/22 History predniSONE See Taper PO DIRECTED 01/12/22 01/12/22 History Allergies Allergy/AdvReac Type Severity Reaction Status Date / Time lisinopril AdvReac Swelling Verified 01/12/22 21:34 of the mouth Physical Exam Vitals: Vital Signs Temp Pulse Pulse Pulse Resp BP BP 01/13/22 02:19 97.8 F 68 17 104/67 01/12/22 23:40 97.7 F 92 18 103/62 01/12/22 23:11 74 18 103/66 01/12/22 19:14 98 F 100 22 143/88 Pulse Ox 01/13/22 02:19 96 01/12/22 23:40 94 L 01/12/22 23:11 99 01/12/22 19:14 100 Intake and Output 01/12/22 01/13/22 01/13/22 22:59 06:59 14:59 Other: # Voids 1 Weight 92.986 kg 92.986 kg Results 01/12/22 19:44 01/12/22 19:44 Cardiac Enzymes 01/12/22 01/12/22 01/12/22 Range/Units 19:44 19:44 23:19 AST 19 (17-59) U/L Troponin I <0.012 <0.012 (0.000-0.034) ng/mL 01/13/22 Range/Units 03:55 AST (17-59) U/L Troponin I <0.012 (0.000-0.034) ng/mL Coagulation 01/12/22 Range/Units 19:44 PT 9.7 (9.0-12.0) sec APTT 22.7 (22.0-30.0) sec CBC 01/12/22 Range/Units 19:44 WBC 12.5 H (3.8-10.6) k/uL RBC 4.37 (4.30-5.90) m/uL Hgb 13.4 (13.0-17.5) gm/dL Hct 42.1 (39.0-53.0) % Plt Count 297 (150-450) k/uL Comprehensive Metabolic Panel 01/12/22 Range/Units 19:44 Sodium 131 L (137-145) mmol/L Potassium 4.6 (3.5-5.1) mmol/L Chloride 99 (98-107) mmol/L Carbon Dioxide 27 (22-30) mmol/L BUN 18 (9-20) mg/dL Creatinine 0.84 (0.66-1.25) mg/dL Glucose 120 H (74-99) mg/dL Calcium 9.4 (8.4-10.2) mg/dL AST 19 (17-59) U/L ALT 19 (4-49) U/L Alkaline Phosphatase 99 (38-126) U/L Total Protein 6.2 L (6.3-8.2) g/dL Albumin 3.7 (3.5-5.0) g/dL Current Medications Generic Name Dose Route Start Last Admin Trade Name Freq PRN Reason Stop Dose Admin Acetaminophen 650 mg 01/12/22 21:01 Acetaminophen Tab 325 Mg Tab PO Q6HR PRN Mild Pain or Fever > 100.5 Morphine Sulfate 4 mg 01/12/22 21:01 Morphine Sulfate 4 Mg/Ml Syringe IV Q4HR PRN Severe Pain Naloxone HCl 0.2 mg 01/12/22 21:01 Naloxone 0.4 Mg/Ml 1 Ml Vial IV Q2M PRN Opioid Reversal Intake and Output 01/12/22 01/13/22 01/13/22 22:59 06:59 14:59 Other: # Voids 1 Weight 92.986 kg 92.986 kg 01/12/22 19:44 01/12/22 19:44
--- NOTE | 2022-01-13 10:59 | P.HPIM ---
History of Present Illness H&P Date: 01/13/22 Chief Complaint: Chest pain This is a 56-year-old gentleman with past medical history of multi-valvular disease,normal cardiac cath. 2016, recent admission for recurrent pneumonia ,echo 12/24/21 reported EF 35-40%, generalized hypokinesia, moderate mitral regurgitation , nonischemic cardiomyopathy,Crohn's, anemia, multiple sclerosis and multiple other medical issues, presented to the ER with with midsternal chest pain radiating to left upper arm/shoulder , IV nausea and diaphoresis, occurred while at rest. EKG reported sinus rhythm, Troponins negative 3, chest x-ray clear. Afebrile. WBC 12.5, sodium 131, magnesium 1.8, otherwise labs unremarkable. Chest pain has subsided this morning. Review of Systems ROS Statement: Those systems with pertinent positive or pertinent negative responses have been documented in the HPI. ROS Other: All systems not noted in ROS Statement are negative. Past Medical History Past Medical History: Heart Failure, COPD, Eye Disorder, Musculoskeletal Disorder, Neurologic Disorder Additional Past Medical History / Comment(s): Multiple sclerosis USES A CANE/ walker TO AMBULATE, falls. has had in past occasional DOUBLE VISION. CHRONIC BACK NECK PAIN. HAD SPINAL STIMULATOR, THEN REMOVED; Migraine headache. Crohn's disease.lt ear [place] History of Any Multi-Drug Resistant Organisms: MRSA Date of last positivie culture/infection: 2014 MDRO Source:: lower back Past Surgical History: Appendectomy, Back Surgery, Bowel Resection, Hernia Repair Additional Past Surgical History / Comment(s): CERVICAL FUSION. SPINAL STIMULATOR implantation, revision and removal. FOREIGN BODY REMOVED RT CHEST WALL. 10/18/2015 wire removed from back. (from stimulator) Past Anesthesia/Blood Transfusion Reactions: Previous Problems w/ Anesthesia Additional Past Anesthesia/Blood Transfusion Reaction / Comment(s): STATES TAKES A LONG TIME TO WAKE UP Past Psychological History: Anxiety, Depression Additional Psychological History / Comment(s): Pt resides with his spouse and 3 sons. He uses a walker. He drives. Smoking Status: Current every day smoker Past Alcohol Use History: Occasional Additional Past Alcohol Use History / Comment(s): Smoker Since Age 13, smoked 1ppd now down to 1/2 ppd. Past Drug Use History: Marijuana - Past Family History Father Family Medical History: Cancer, Diabetes Mellitus Additional Family Medical History / Comment(s): CABG-TRIPLE BYPASS, Mother Family Medical History: Cancer, CVA/TIA, Diabetes Mellitus Additional Family Medical History / Comment(s): Stroke Brother(s) Additional Family Medical History / Comment(s): cardiomyopathy Medications and Allergies Home Medications Medication Instructions Recorded Confirmed Type Baclofen [Lioresal] 20 mg PO BID 12/21/15 01/12/22 History HYDROcodone/APAP 7.5-325MG [[place] 1 tab PO BID PRN 04/17/20 01/12/22 History 7.5-325] Pantoprazole Sodium [Protonix] 40 mg PO DAILY 04/17/20 01/12/22 History Morphine Sulfate [Ms Contin] 15 mg PO Q12H 01/28/21 01/12/22 History Pregabalin 150 mg PO BID 09/14/21 01/12/22 History QUEtiapine [SEROquel] 50 mg PO HS 09/14/21 01/12/22 History SUMAtriptan succinate [Imitrex] 50 mg PO BID PRN 09/14/21 01/12/22 History rOPINIRole HCL [Requip] 1 mg PO HS 09/17/21 01/12/22 History DULoxetine HCL [Cymbalta] 20 mg PO BID 12/22/21 01/12/22 History Furosemide [Lasix] 20 mg PO BID@0900,1600 #60 tab 12/26/21 01/12/22 Rx Spironolactone [Aldactone] 25 mg PO DAILY #30 tab 12/26/21 01/12/22 Rx carvediloL [Coreg] 6.25 mg PO BID-W/MEALS #60 tablet 12/26/21 01/12/22 Rx Losartan [Cozaar] 25 mg PO DAILY #30 tab 12/30/21 01/12/22 Rx Albuterol Inhaler [Ventolin Hfa 2 puff INHALATION RT-QID PRN 01/03/22 01/12/22 History Inhaler] Amoxic-Pot Clav 875-125Mg 1 tab PO Q12HR 7 Days #14 tab 01/06/22 01/12/22 Rx [Augmentin 875-125] Ipratropium-Albuterol Nebulize 3 ml INHALATION RT-Q2H PRN each 01/06/22 01/12/22 Rx [Duoneb 0.5 mg-3 mg/3 ml Soln] Ipratropium-Albuterol Nebulize 3 ml INHALATION RT-QID 30 Days #60 01/06/22 01/12/22 Rx [Duoneb 0.5 mg-3 mg/3 ml Soln] each Fluticasone Propion/Salmeterol 2 puff INHALATION RT-BID 01/12/22 01/12/22 History [Advair Hfa 230-21 Mcg Inhaler] Mirtazapine [Remeron] 15 mg PO HS 01/12/22 01/12/22 History predniSONE See Taper PO DIRECTED 01/12/22 01/12/22 History Allergies Allergy/AdvReac Type Severity Reaction Status Date / Time lisinopril AdvReac Swelling Verified 01/12/22 21:34 of the mouth Physical Exam Vitals: Vital Signs Temp Pulse Pulse Pulse Resp BP BP 01/13/22 07:36 97.9 F 71 18 105/65 01/13/22 07:28 17 01/13/22 02:19 97.8 F 68 17 104/67 01/12/22 23:40 97.7 F 92 18 103/62 01/12/22 23:11 74 18 103/66 01/12/22 19:14 98 F 100 22 143/88 Pulse Ox 01/13/22 07:36 97 01/13/22 07:28 01/13/22 02:19 96 01/12/22 23:40 94 L 01/12/22 23:11 99 01/12/22 19:14 100 Intake and Output 01/12/22 01/13/22 01/13/22 22:59 06:59 14:59 Output Total 680 Balance -680 Output: Urine 680 Other: Voiding Method Urinal # Voids 1 Weight 92.986 kg 92.986 kg PHYSICAL EXAM: VITAL SIGNS: As above GENERAL: Sitting up in bed, no acute distress HEENT: Conjunctivae normal. eyes normal. NECK: Supple, No JVD. No thyroid enlargement. No LNs CARDIOVASCULAR: S1, S2 regular.systolic murmur RESPIRATION: Breath sounds diminished in the bases. ABDOMEN: Soft, nontender . No guarding. no masses palpable. No ascites, No hepatosplenomegaly.Bowel sounds heard. LEGS: No edema. no swelling PSYCHIATRY: Alert and oriented X3, mood and affect normal. NERVOUS SYSTEM: Cranial N 2-12 grossly normal. No focal deficits. Strength and sensation grossly intact. Skin: Warm and dry, no rash Results CBC & Chem 7: 01/12/22 19:44 01/12/22 19:44 Labs: Abnormal Lab Results - Last 24 Hours (Table) 01/12/22 01/12/22 Range/Units 19:44 19:44 WBC 12.5 H (3.8-10.6) k/uL Neutrophils # 9.9 H (1.3-7.7) k/uL Sodium 131 L (137-145) mmol/L Glucose 120 H (74-99) mg/dL Total Protein 6.2 L (6.3-8.2) g/dL Thrombosis Risk Factor Assmnt - Choose All That Apply Any of the Below Risk Factors Present?: Yes Each Factor Represents 1 point: Abnormal pulmonary function (COPD), Age 41-60 years, Obesity (BMI >25) Other Risk Factors: No Other congenital or acquired thrombophilia - If yes, enter type in comment: No Thrombosis Risk Factor Assessment Total Risk Factor Score: 3 Thrombosis Risk Factor Assessment Level: Moderate Risk Assessment and Plan Assessment: Acute chest pain, troponins negative 3, Cardiology following. Nonischemic cardiomyopathy with EF 35-40% Moderate mitral regurgitation COPD, stable Crohn's disease Multiple sclerosis Chronic nicotine dependence Chronic back pain, patient has a pain contract with Dr. Carlin Crohn's disease Ongoing Nicotine dependence Marijuana use Plan: Continue on current medication regime ,monitoring and symptomatic treatment. Evaluated by cardiology, scheduled for NEGRITA and cardiac catheterization. Home meds have been reviewed and resumed accordingly.PPI for GI prophylaxis. Prognosis guarded given multiple complex medical issues. The impression and plan of care has been dictated as directed. : I performed a history and examination of this patient, discussed the same with the dictator. I agree with the dictator's note ,documented as a scribe. Any additional findings or plans will be noted.
[2022-01-13] MEDS: IPRATROPIUM-ALBUTEROL 3 ML NEB INHALATION SCH ×2 (11:11→15:43)
[2022-01-13] MEDS: BENZOCAINE SPRAY 1 CAN TOPICAL ONE ×2 (11:20→11:23)
[2022-01-13] MEDS ORDERED: MIDAZOLAM 2 MG/2 ML VIAL IV ONE (11:22)
[2022-01-13] MEDS ORDERED: fentaNYL (PF) 50 MCG/ML 2 ML AMP IV ONE (11:22)
[2022-01-13] MEDS ORDERED: IV FLUID CONTINUATION 800 ML IV ONE ×2 (11:26)
[2022-01-13] MEDS ORDERED: IV FLUID CONTINUATION 1,000 ML IV ONE (11:35)
[2022-01-13] MEDS ORDERED: LIDOCAINE 1% INJ 10MG/ML (5 ML VIAL-PF) SQ ONE ×2 (11:51)
[2022-01-13] MEDS ORDERED: VERAPAMIL SYRINGE (5 MG/10 ML) INTRAARTER ONE (12:02)
[2022-01-13] MEDS ORDERED: HEPARIN SODIUM 1,000 UN/ML (10ML VL) IV ONE (12:05)
[2022-01-13] MEDS ORDERED: IOPAMIDOL-370 125ML BTL INJ ONE (12:13)
[2022-01-13] MEDS ORDERED: RX INFO: IV CONTRAST WAS GIVEN 1 EACH MISC MISCELLANE PRN (12:26)
[2022-01-13 12:39] VITALS: TEMP 98.6
[2022-01-13 16:10] VITALS: BP 111/69; PULSE 71
--- NOTE | 2022-01-13 18:35 | ECHOT ---
TRANSESOPHAGEAL ECHOCARDIOGRAM INDICATION: Mitral regurgitation and cardiomyopathy. PROCEDURE NOTE: After obtaining informed consent, transesophageal echocardiogram was performed in left lateral position using an Omniplane probe. Local and IV sedation were obtained using 1 mg of Versed and 25 mcg of fentanyl. The patient tolerated the procedure well without any obvious immediate complications. Two- D, color Doppler, spectral analysis had been performed. Total sedation time was 10 minutes. FINDINGS: 1. Mitral valve appears anatomically normal. There is moderate central mitral regurgitation noted. 2. Left atrium appears enlarged. 3. Right atrium and right ventricle seen within normal limits. 4. Aortic valve is a 3-leaflet valve. There is no evidence of aortic stenosis or regurgitation. 5. Tricuspid valve shows mild tricuspid regurgitation. 6. Interatrial septum: There is no evidence of [id number] shunt by color-flow Doppler or [id number] shunt by agitated saline contrast study. 7. There are mild atherosclerotic changes noted on the aorta. 8. Left ventricle has normal size, shows mild diffuse global hypokinesis with an ejection fraction of 40% to 45%. CONCLUSIONS: 1. Moderate central mitral regurgitation. 2. Cardiomyopathy with mild to moderate LV dysfunction. MMODL / IJN: [id number] /
--- NOTE | 2022-01-13 19:50 | CC ---
CARDIAC CATHETERIZATION REPORT INDICATION: 1. Precordial chest pain. 2. Dilated cardiomyopathy. 3. Recent congestive heart failure. PROCEDURE NOTE: After obtaining informed consent, left heart catheterization and coronary angiogram were performed via the right radial artery using standard Patrick catheters. Hemodynamics were obtained using a pigtail catheter. Patient tolerated the procedure well without any obvious immediate complications. Received moderate conscious sedation. Total sedation time was 23 minutes. I obtained right radial artery access using a micropuncture needle with Seldinger technique. Catheters and wires were floated into the ascending aorta under fluoroscopic guidance, where the catheters were exchanged uneventfully. Patient received 5 mg of verapamil and 5000 units of IV heparin as per protocol. A TR band was placed as per protocol for hemostasis. FINDINGS: HEMODYNAMICS: Left ventricular end-diastolic pressure is 5 mm. There is no significant gradient across the aortic valve. LEFT VENTRICULOGRAM: Left ventriculogram was not performed. ANGIOGRAPHIC DATA: Right coronary artery is a large dominant vessel and is free of significant stenosis. Left main coronary artery is a normal-sized vessel and is free of stenosis. It divides into left anterior descending coronary artery and circumflex coronary artery. LAD and its branches, circumflex coronary artery and its branches are free of significant stenosis. CONCLUSIONS: 1. Normal coronary arteries. 2. Normal left ventricular end-diastolic pressure. PLAN: Patient's symptomatology is not related to obstructive CAD. MMODL / IJN: [id number] /
[2022-01-13] MEDS ORDERED: SYMBICORT 160-4.5 MCG INHALER INHALATION SCH (20:00)
[2022-01-13] MEDS ORDERED: DULoxetine HCL 20 MG CAPSULE.DR PO SCH (21:00)
[2022-01-13] MEDS ORDERED: QUEtiapine 50 MG TAB PO SCH (21:00)
[2022-01-13] MEDS ORDERED: BACLOFEN 10 MG TAB PO SCH (21:00)
[2022-01-13] MEDS ORDERED: PREGABALIN 75 MG CAP PO SCH (21:00)
[2022-01-13] MEDS ORDERED: MIRTAZAPINE 15 MG TAB PO SCH (21:00)
[2022-01-14] MEDS ORDERED: PANTOPRAZOLE 40 MG TABLET PO SCH (07:30)
== END 2022-01-13 17:28 ==
LOC: EC 19:12 → 6NMEDSUR 21:01
PROVIDERS: ADMIT Family Medicine; ATTEND Family Medicine
DX: I08.1 Rheumatic disorders of both mitral and tricuspid valves (principal); R07.2 Precordial pain; I42.0 Dilated cardiomyopathy; I50.9 Heart failure, unspecified; I42.8 Other cardiomyopathies; I49.3 Ventricular premature depolarization; G89.29 Other chronic pain; M54.9 Dorsalgia, unspecified; M54.2 Cervicalgia; Z87.01 Personal history of pneumonia (recurrent); F17.210 Nicotine dependence, cigarettes, uncomplicated; E83.00 Disorder of copper metabolism, unspecified; G35 Multiple sclerosis; Z86.14 Personal history of Methicillin resistant Staphylococcus aureus infection; G43.909 Migraine, unspecified, not intractable, without status migrainosus; K50.90 Crohn's disease, unspecified, without complications; R29.6 Repeated falls; D64.9 Anemia, unspecified; F32.A Depression, unspecified; F41.9 Anxiety disorder, unspecified; J44.0 Chronic obstructive pulmonary disease with (acute) lower respiratory infection; Z82.3 Family history of stroke; Z83.3 Family history of diabetes mellitus; Z80.9 Family history of malignant neoplasm, unspecified; Z79.51 Long term (current) use of inhaled steroids; Z79.891 Long term (current) use of opiate analgesic; Z79.899 Other long term (current) drug therapy; Z91.09 Other allergy status, other than to drugs and biological substances
CPT/HCPCS: 96374; 99285; 36415; 94640; 93005; 93312; 93320; 93325; 93458; 83880; 80053; 83735; 84484 ×2; 85025; 85610; 85730; 71046; G0378 ×2; C1894; J2250; J2270; J2001; J3010; J1644; Q9967

== ENCOUNTER 2022-03-06 11:24 | Inpatient (IN) | payer MEDICARE ==
[2022-03-06] MEDS ORDERED: IPRATROPIUM-ALBUTEROL 3 ML NEB INHALATION STA ×2 (11:39→20:54)
[2022-03-06] MEDS ORDERED: DEXAMETHASONE SOD PHOSPHATE 10 MG/ML 1 ML VIAL IVP STA (11:39)
--- NOTE | 2022-03-06 11:41 | ED ---
SOB HPI - General Chief Complaint: Shortness of Breath Stated Complaint: ALONDRA Time Seen by Provider: 03/06/22 11:31 Source: patient, EMS, RN notes reviewed Mode of arrival: EMS Limitations: no limitations - History of Present Illness Initial Comments: This is a 56-year-old male who presents to the emergency department for shortness of breath. Patient states that he had gotten up this morning went to drink his coffee and sit down, when he suddenly felt very short of breath. Patient was diagnosed with COVID approximately 6 days ago and had been feeling well up until today. He does have a diagnosis of COPD but does not use oxygen at home. Denies any associated chest pain. EMS was not sure what his oxygen level was prior to placing him on supplemental oxygen, as they did not have the pulse ox. Denies any fevers, chills, sore throat, cough, chest pain, palpitations, abdominal pain, nausea, vomiting, diarrhea, back pain, or headaches. MD Complaint: shortness of breath Known History Of: COPD Context: recent URI - Related Data Home Medications Medication Instructions Recorded Confirmed Baclofen [Lioresal] 20 mg PO BID 12/21/15 03/06/22 HYDROcodone/APAP 7.5-325MG [[facility] tab PO BID PRN 04/17/20 03/06/22 7.5-325] Pantoprazole Sodium [Protonix] 40 mg PO DAILY 04/17/20 03/06/22 QUEtiapine [SEROquel] 50 mg PO HS 09/14/21 03/06/22 SUMAtriptan succinate [Imitrex] 50 mg PO BID PRN 09/14/21 03/06/22 rOPINIRole HCL [Requip] 1 mg PO HS 09/17/21 03/06/22 DULoxetine HCL [Cymbalta] 20 mg PO BID 12/22/21 03/06/22 Albuterol Inhaler [Ventolin Hfa 2 puff INHALATION RT-QID PRN 01/03/22 03/06/22 Inhaler] Fluticasone Propion/Salmeterol 2 puff INHALATION RT-BID 01/12/22 03/06/22 [Advair Hfa 230-21 Mcg Inhaler] Mirtazapine [Remeron] 15 mg PO HS 01/12/22 03/06/22 Morphine Sulfate ER [Ms Contin] 30 mg PO Q12H 03/06/22 03/06/22 dexAMETHasone 6 mg PO DAILY 03/06/22 03/06/22 Previous Rx's Medication Instructions Recorded Furosemide [Lasix] 20 mg PO BID@0900,1600 #60 tab 12/26/21 Spironolactone [Aldactone] 25 mg PO DAILY #30 tab 12/26/21 carvediloL [Coreg] 6.25 mg PO BID-W/MEALS #60 tablet 12/26/21 Losartan [Cozaar] 25 mg PO DAILY #30 tab 12/30/21 Ipratropium-Albuterol Nebulize 3 ml INHALATION RT-Q2H PRN each 01/06/22 [Duoneb 0.5 mg-3 mg/3 ml Soln] Ipratropium-Albuterol Nebulize 3 ml INHALATION RT-QID 30 Days #60 01/06/22 [Duoneb 0.5 mg-3 mg/3 ml Soln] each Aspirin 81 mg PO DAILY #90 tab 01/13/22 Allergies Allergy/AdvReac Type Severity Reaction Status Date / Time lisinopril Allergy Swelling Verified 03/06/22 15:14 of the mouth Review of Systems ROS Statement: Those systems with pertinent positive or pertinent negative responses have been documented in the HPI. ROS Other: All systems not noted in ROS Statement are negative. Past Medical History Past Medical History: Heart Failure, COPD, Eye Disorder, Musculoskeletal Disorder, Neurologic Disorder Additional Past Medical History / Comment(s): Multiple sclerosis USES A CANE/ walker TO AMBULATE, falls. has had in past occasional DOUBLE VISION. CHRONIC BACK NECK PAIN. HAD SPINAL STIMULATOR, THEN REMOVED; Migraine headache. Crohn's disease.lt ear [place] History of Any Multi-Drug Resistant Organisms: MRSA Date of last positivie culture/infection: 2014 MDRO Source:: lower back Past Surgical History: Appendectomy, Back Surgery, Bowel Resection, Hernia Repair Additional Past Surgical History / Comment(s): CERVICAL FUSION. SPINAL STIMULATOR implantation, revision and removal. FOREIGN BODY REMOVED RT CHEST WALL. 10/18/2015 wire removed from back. (from stimulator) Past Anesthesia/Blood Transfusion Reactions: Previous Problems w/ Anesthesia Additional Past Anesthesia/Blood Transfusion Reaction / Comment(s): STATES TAKES A LONG TIME TO WAKE UP Past Psychological History: Anxiety, Depression Smoking Status: Current every day smoker Past Alcohol Use History: Occasional Past Drug Use History: Marijuana - Past Family History Father Family Medical History: Cancer, Diabetes Mellitus Additional Family Medical History / Comment(s): CABG-TRIPLE BYPASS, Mother Family Medical History: Cancer, CVA/TIA, Diabetes Mellitus Additional Family Medical History / Comment(s): Stroke Brother(s) Additional Family Medical History / Comment(s): cardiomyopathy General Exam Limitations: no limitations General appearance: alert Head exam: Present: atraumatic, normocephalic, normal inspection Respiratory exam: Present: wheezes (In all lung parkinson), decreased breath sounds Cardiovascular Exam: Present: regular rate, normal rhythm, normal heart sounds. Absent: systolic murmur, diastolic murmur, rubs, gallop, clicks Neurological exam: Present: alert, oriented X3, CN II-XII intact Psychiatric exam: Present: normal affect, normal mood Skin exam: Present: warm, dry, intact, normal color. Absent: rash Course Vital Signs 03/06/22 03/06/22 03/06/22 11:27 11:34 12:01 Temperature 97.3 F L Pulse Rate 86 70 Respiratory 18 18 Rate Blood Pressure 140/64 O2 Sat by Pulse 97 Oximetry 03/06/22 03/06/22 03/06/22 12:11 13:41 13:42 Temperature Pulse Rate 74 72 Respiratory 17 Rate Blood Pressure 85/68 97/60 O2 Sat by Pulse 97 Oximetry 03/06/22 03/06/22 03/06/22 13:43 13:49 14:04 Temperature Pulse Rate 77 Respiratory 16 Rate Blood Pressure 87/63 88/65 102/60 O2 Sat by Pulse 98 Oximetry 03/06/22 03/06/22 14:20 15:29 Temperature Pulse Rate 59 L 67 Respiratory 16 16 Rate Blood Pressure 101/67 101/61 O2 Sat by Pulse 98 96 Oximetry Medical Decision Making - Medical Decision Making This is a 56-year-old male who presents to the emergency department for shortness of breath. Patient given DuoNeb breathing treatment and IV Decadron. Lab work obtained, this revealed an elevated lactic acid of 4.4, an elevated d- dimer, and slightly elevated troponin. Chest x-ray revealed no acute cardiopulmonary process. CTA of the chest was obtained due to the elevated d- dimer value. This revealed no evidence of a pulmonary embolism. It did identify bilateral lower lobe patchy groundglass opacities concerning for atypi juan viral infectious process versus atelectasis. Patient is known to be recovering from COVID. Patient's blood pressure did begin to drop into the 80s/60s. He was subsequently given 1 L bolus of IV fluids. He did respond to fluids and blood pressure increased to the low 100s systolically. There is concern that the patient may have a viral pneumonia with superimposed bacterial infection. Given his sudden onset respiratory distress, soft pressures, and comorbidities, will plan to admit the patient for IV antibiotics and management of respiratory symptoms. Pulmonology consult placed per admitting team's request. This case was discussed in detail with the attending ED physician. Presentation, findings, and treatment plan discussed in detail as well. - Lab Data Result diagrams: 03/06/22 11:37 03/06/22 11:37 Lab Results 03/06/22 03/06/22 03/06/22 Range/Units 11:37 11:37 11:37 WBC 5.9 (3.8-10.6) k/uL RBC 4.24 L (4.30-5.90) m/uL Hgb 13.9 (13.0-17.5) gm/dL Hct 40.9 (39.0-53.0) % MCV 96.4 (80.0-100.0) fL MCH 32.7 (25.0-35.0) pg MCHC 33.9 (31.0-37.0) g/dL RDW 13.0 (11.5-15.5) % Plt Count 225 (150-450) k/uL MPV 8.6 Neutrophils % 57 % Lymphocytes % 32 % Monocytes % 6 % Eosinophils % 1 % Basophils % 0 % Neutrophils # 3.4 (1.3-7.7) k/uL Lymphocytes # 1.9 (1.0-4.8) k/uL Monocytes # 0.4 (0-1.0) k/uL Eosinophils # 0.1 (0-0.7) k/uL Basophils # 0.0 (0-0.2) k/uL PT 9.6 (9.0-12.0) sec INR 0.9 (<1.2) APTT 23.5 (22.0-30.0) sec D-Dimer 0.81 H (<0.60) mg/L FEU Sodium 139 (137-145) mmol/L Potassium 3.2 L (3.5-5.1) mmol/L Chloride 104 (98-107) mmol/L Carbon Dioxide 22 (22-30) mmol/L Anion Gap 13 mmol/L BUN 10 (9-20) mg/dL Creatinine 0.73 (0.66-1.25) mg/dL Est GFR (CKD-EPI)AfAm >90 (>60 ml/min/1.73 sqM) Est GFR (CKD-EPI)NonAf >90 (>60 ml/min/1.73 sqM) Glucose 143 H (74-99) mg/dL Lactic Ac Sepsis Rflx Plasma Lactic Acid Phong (0.7-2.0) mmol/L Calcium 8.7 (8.4-10.2) mg/dL Total Bilirubin 0.2 (0.2-1.3) mg/dL AST 52 (17-59) U/L ALT 60 H (4-49) U/L Alkaline Phosphatase 90 (38-126) U/L Troponin I (0.000-0.034) ng/mL NT-Pro-B Natriuret Pep pg/mL Total Protein 6.0 L (6.3-8.2) g/dL Albumin 3.6 (3.5-5.0) g/dL 03/06/22 03/06/22 03/06/22 Range/Units 11:37 11:37 11:37 WBC (3.8-10.6) k/uL RBC (4.30-5.90) m/uL Hgb (13.0-17.5) gm/dL Hct (39.0-53.0) % MCV (80.0-100.0) fL MCH (25.0-35.0) pg MCHC (31.0-37.0) g/dL RDW (11.5-15.5) % Plt Count (150-450) k/uL MPV Neutrophils % % Lymphocytes % % Monocytes % % Eosinophils % % Basophils % % Neutrophils # (1.3-7.7) k/uL Lymphocytes # (1.0-4.8) k/uL Monocytes # (0-1.0) k/uL Eosinophils # (0-0.7) k/uL Basophils # (0-0.2) k/uL PT (9.0-12.0) sec INR (<1.2) APTT (22.0-30.0) sec D-Dimer (<0.60) mg/L FEU Sodium (137-145) mmol/L Potassium (3.5-5.1) mmol/L Chloride (98-107) mmol/L Carbon Dioxide (22-30) mmol/L Anion Gap mmol/L BUN (9-20) mg/dL Creatinine (0.66-1.25) mg/dL Est GFR (CKD-EPI)AfAm (>60 ml/min/1.73 sqM) Est GFR (CKD-EPI)NonAf (>60 ml/min/1.73 sqM) Glucose (74-99) mg/dL Lactic Ac Sepsis Rflx Plasma Lactic Acid Phong 4.4 H* (0.7-2.0) mmol/L Calcium (8.4-10.2) mg/dL Total Bilirubin (0.2-1.3) mg/dL AST (17-59) U/L ALT (4-49) U/L Alkaline Phosphatase (38-126) U/L Troponin I 0.018 (0.000-0.034) ng/mL NT-Pro-B Natriuret Pep 1690 pg/mL Total Protein (6.3-8.2) g/dL Albumin (3.5-5.0) g/dL 03/06/22 Range/Units 12:15 WBC (3.8-10.6) k/uL RBC (4.30-5.90) m/uL Hgb (13.0-17.5) gm/dL Hct (39.0-53.0) % MCV (80.0-100.0) fL MCH (25.0-35.0) pg MCHC (31.0-37.0) g/dL RDW (11.5-15.5) % Plt Count (150-450) k/uL MPV Neutrophils % % Lymphocytes % % Monocytes % % Eosinophils % % Basophils % % Neutrophils # (1.3-7.7) k/uL Lymphocytes # (1.0-4.8) k/uL Monocytes # (0-1.0) k/uL Eosinophils # (0-0.7) k/uL Basophils # (0-0.2) k/uL PT (9.0-12.0) sec INR (<1.2) APTT (22.0-30.0) sec D-Dimer (<0.60) mg/L FEU Sodium (137-145) mmol/L Potassium (3.5-5.1) mmol/L Chloride (98-107) mmol/L Carbon Dioxide (22-30) mmol/L Anion Gap mmol/L BUN (9-20) mg/dL Creatinine (0.66-1.25) mg/dL Est GFR (CKD-EPI)AfAm (>60 ml/min/1.73 sqM) Est GFR (CKD-EPI)NonAf (>60 ml/min/1.73 sqM) Glucose (74-99) mg/dL Lactic Ac Sepsis Rflx Y Plasma Lactic Acid Phong (0.7-2.0) mmol/L Calcium (8.4-10.2) mg/dL Total Bilirubin (0.2-1.3) mg/dL AST (17-59) U/L ALT (4-49) U/L Alkaline Phosphatase (38-126) U/L Troponin I (0.000-0.034) ng/mL NT-Pro-B Natriuret Pep pg/mL Total Protein (6.3-8.2) g/dL Albumin (3.5-5.0) g/dL - Radiology Data Radiology results: report reviewed, image reviewed Disposition Clinical Impression: Viral pneumonia Disposition: ADMITTED IP TO THIS [facility] Referrals: Mack Fox DO [Primary Care Provider] - 1-2 days
[2022-03-06 11:45] LABS: Basophils % (A) 0 %; Eosinophils # (A) 0.1 k/uL (0-0.7); Eosinophils % (A) 1 %; HCT 40.9 % (39.0-53.0); HGB 13.9 gm/dL (13.0-17.5); Lymphocytes # (A) 1.9 k/uL (1.0-4.8); Lymphocytes % (A) 32 %; MCH 32.7 pg (25.0-35.0); MCHC 33.9 g/dL (31.0-37.0); MCV 96.4 fL (80.0-100.0); Mean Platelet Volume 8.6; Monocytes # (A) 0.4 k/uL (0-1.0); Monocytes % (A) 6 %; Neutrophils # (A) 3.4 k/uL (1.3-7.7); Neutrophils % (A) 57 %; Platelet Count 225 k/uL (150-450); RBC 4.24 m/uL (4.30-5.90); WBC 5.9 k/uL (3.8-10.6)
[2022-03-06 11:56] LABS: ALT 60 U/L (4-49); AST 52 U/L (17-59); African American GFR (CKD) >90 (>60 ml/min/1.73 sqM); Albumin 3.6 g/dL (3.5-5.0); Alkaline Phosphatase 90 U/L (38-126); Anion Gap 13 mmol/L; Blood Urea Nitrogen 10 mg/dL (9-20); Calcium 8.7 mg/dL (8.4-10.2); Carbon Dioxide 22 mmol/L (22-30); Chloride 104 mmol/L (98-107); Glucose 143 mg/dL (74-99); Non-African American GFR(CKD) >90 (>60 ml/min/1.73 sqM); Potassium 3.2 mmol/L (3.5-5.1); Sodium 139 mmol/L (137-145); Total Bilirubin 0.2 mg/dL (0.2-1.3)
[2022-03-06 12:27] LABS: INR 0.9 (<1.2); Partial Thromboplastin Time 23.5 sec (22.0-30.0); Prothrombin Time 9.6 sec (9.0-12.0)
--- NOTE | 2022-03-06 12:45 | XR ---
EXAMINATION TYPE: XR chest 2V DATE OF EXAM: 03/06/2022 12:27 PM COMPARISON: Chest radiographs from 02/16/2022 TECHNIQUE: XR chest 2V Frontal and lateral views of the chest. CLINICAL INDICATION:Male, 56 years old with history of difficulty breathing; FINDINGS: Lungs/Pleura: There is flattening of the diaphragm with increased lucency of the lungs. No evidence o f pneumothorax, pleural effusion or focal consolidation. Pulmonary vascularity: Unremarkable. Heart/mediastinum: Cardiomediastinal silhouette is unremarkable. Musculoskeletal: No acute osseous pathology. Cervical fusion hardware. IMPRESSION: 1. No acute cardiopulmonary disease process. No significant change from prior exam. 2. COPD changes.
[2022-03-06] MEDS ORDERED: POTASSIUM CHLORIDE ER 10 MEQ TAB.ER.PRT PO STA (13:25)
--- NOTE | 2022-03-06 13:30 | CT ---
EXAMINATION TYPE: CT chest angio for PE CT DLP: 419.8 mGycm, Automated exposure control for dose reduction was used. DATE OF EXAM: 03/06/2022 1:08 PM COMPARISON: . Chest radiograph from same day. CTA chest 12/22/2021. CLINICAL INDICATION:Male, 56 years old with history of Shortness of breath, elevated d-dimer; SOB TECHNIQUE/CONTRAST: CTA scan of the thorax is performed with IV Contrast, patient injected with 100 mL of Isovue 370, pul monary embolism protocol. MIP images are created and reviewed. FINDINGS: Pulmonary Artery: There is no evidence for a filling defect within the pulmonary vasculature to sugge st acute pulmonary embolism. The pulmonary artery is of normal size. Reflux of contrast into the IVC and hepatic veins. Lungs/Pleura: Moderate centrilobular and paraseptal emphysematous changes with upper lobe predominanc e. Right greater than left. No pleural effusions or pneumothorax. Bilateral lobe patchy groundglass o pacities. Right upper lobe lateral pleural calcification. Scattered smaller bilateral pleural calcifi cations, possibly asbestos-related. Airway: Large airways are patent. Heart: Heart is within normal limits for size.. Vasculature: No evidence of aortic aneurysm. Atherosclerotic calcification of the aorta. Mediastinum: No gross evidence of adenopathy. Musculoskeletal: No acute osseous abnormalities. Healing left sixth and seventh lateral rib fractures . No aggressive osseous abnormalities. Soft Tissues: Unremarkable. Lower neck: No significant findings. Upper Abdomen: Stable hepatic cysts. IMPRESSION: 1. No evidence of pulmonary embolism. 2. Bilateral lower lobe patchy groundglass opacities concerning for an atypical viral infectious proc ess versus atelectasis. 3. Moderate emphysematous changes.
[2022-03-06] MEDS ORDERED: SODIUM CHLORIDE 0.9% 1,000 ML IV STA (14:07)
[2022-03-06] MEDS ORDERED: MORPHINE SULFATE 2 MG/ML SYRINGE IVP STA (14:17)
[2022-03-06] MEDS ORDERED: PNEUMONIA PROTOCOL UTILIZED 1 EACH MISC PO PRN (14:59)
[2022-03-06] MEDS ORDERED: NALOXONE 0.4 MG/ML 1 ML VIAL IV PRN (15:18)
[2022-03-06] MEDS ORDERED: ACETAMINOPHEN TAB 325 MG TAB PO PRN (15:18)
[2022-03-06] MEDS: FUROSEMIDE 20 MG TAB PO SCH (16:59)
[2022-03-06] MEDS: IPRATROPIUM-ALBUTEROL 3 ML NEB INHALATION SCH ×2 (17:10→21:03)
[2022-03-06] MEDS ORDERED: ASPIRIN 81 MG PO STA (20:43)
[2022-03-06] MEDS: carvediloL 6.25 MG TAB PO SCH (20:43)
[2022-03-06] MEDS ORDERED: SODIUM CHLORIDE 0.9% 500 ML 500 ML IV ONE (20:44)
[2022-03-06] MEDS ORDERED: IPRATROPIUM-ALBUTEROL 3 ML NEB INHALATION PRN (20:54)
[2022-03-06] MEDS: ALBUTEROL HFA INHALER INHALATION SCH (20:56)
[2022-03-06] MEDS: SYMBICORT 160-4.5 MCG INHALER INHALATION SCH (20:56)
[2022-03-06] MEDS ORDERED: ALBUTEROL HFA INHALER INHALATION STA (21:20)
[2022-03-06] MEDS ORDERED: ALBUTEROL HFA INHALER INHALATION PRN (21:21)
[2022-03-06] MEDS: BACLOFEN 10 MG TAB PO SCH (21:23)
[2022-03-06] MEDS: DULoxetine HCL 20 MG CAPSULE.DR PO SCH (21:23)
[2022-03-06] MEDS: ENOXAPARIN 40 MG/0.4 ML SYRINGE SQ SCH (21:23)
[2022-03-06] MEDS: QUEtiapine 50 MG TAB PO SCH (21:24)
[2022-03-06] MEDS: MIRTAZAPINE 15 MG TAB PO SCH (21:24)
[2022-03-06] MEDS: MORPHINE SULFATE ER 30 MG TABLET PO SCH (21:24)
--- NOTE | 2022-03-06 22:27 | P.HPIM ---
History of Present Illness This is a 56-year-old gentleman with past medical history of multi-valvular disease, Crohn's, anemia, multiple sclerosis and multiple other medical issues, he is a patient of Dr. Fox presented to the ER with episodes of shortness of breath when he could not resect this morning, he took his inhaler and larger twice with no benefit to her decided to come to emergency room. By the time of my encounter patient states that his breathing is normal now. He is not on home oxygen. He denies chest pain. He has little cough and total phlegm. He has some diarrhea twice this morning. Denies any urinary symptoms. No headache or weakness or numbness or dizziness. His outer diameter grinder is Dr. Leal He smokes about half to 1 pack per day and he was counseled to quit and he agrees and wants nicotine patch but he declines alcohol or illicit drugs. Patient was diagnosed with Covid infection about 6 days ago when he had fever and headache Patient is afebrile and vitals are stable. He is saturating 96% on room air. CBC is unremarkable. D-dimer 0.81. INR 0.9. Potassium 3.2, rest of BMP and liver enzymes were unremarkable. Elevated lactic acid at 4.4. Troponin 0.18 and 0.3. ProBNP is 1690. EKG showing normal sinus rhythm at [address]-T changes CTA of the chest: No pulmonary embolism and bilateral lower lobe patchy ground glass opacity concerning for atypical viral infection or cellulitis atelectasis with emphysematous changes patient received normal saline, breathing treatment, dexamethasone daily. Review of Systems Review of systems CONSTITUTIONAL: No fever, no malaise, no fatigue. HEENT: No recent visual problems or hearing problems. Denied any sore throat. CARDIOVASCULAR: No orthopnea, PND, no palpitations, no syncope. PULMONARY: No shortness of breath, no cough, no hemoptysis. GASTROINTESTINAL: No diarrhea, no nausea, no vomiting, no abdominal pain. Normoactive bowel sounds. NEUROLOGICAL: No headaches, no weakness, no numbness. HEMATOLOGICAL: Denies any bleeding or petechiae. GENITOURINARY: Denies any burning micturition, frequency, or urgency. MUSCULOSKELETAL/RHEUMATOLOGICAL: Denies any joint pain, swelling, or any muscle pain. ENDOCRINE: Denies any polyuria or polydipsia. Past Medical History Past Medical History: Heart Failure, COPD, Eye Disorder, Musculoskeletal Disorder, Neurologic Disorder Additional Past Medical History / Comment(s): Multiple sclerosis USES A CANE/ walker TO AMBULATE, falls. has had in past occasional DOUBLE VISION. CHRONIC BACK NECK PAIN. HAD SPINAL STIMULATOR, THEN REMOVED; Migraine headache. Crohn's disease.lt ear [place] History of Any Multi-Drug Resistant Organisms: MRSA Date of last positivie culture/infection: 2014 MDRO Source:: lower back Past Surgical History: Appendectomy, Back Surgery, Bowel Resection, Hernia Repair Additional Past Surgical History / Comment(s): CERVICAL FUSION. SPINAL STIM ULATOR implantation, revision and removal. FOREIGN BODY REMOVED RT CHEST WALL. 10/18/2015 wire removed from back. (from stimulator) Past Anesthesia/Blood Transfusion Reactions: Previous Problems w/ Anesthesia Additional Past Anesthesia/Blood Transfusion Reaction / Comment(s): STATES TAKES A LONG TIME TO WAKE UP Past Psychological History: Anxiety, Depression Smoking Status: Current every day smoker Past Alcohol Use History: Occasional Past Drug Use History: Marijuana - Past Family History Father Family Medical History: Cancer, Diabetes Mellitus Additional Family Medical History / Comment(s): CABG-TRIPLE BYPASS, Mother Family Medical History: Cancer, CVA/TIA, Diabetes Mellitus Additional Family Medical History / Comment(s): Stroke Brother(s) Additional Family Medical History / Comment(s): cardiomyopathy Medications and Allergies Home Medications Medication Instructions Recorded Confirmed Type Baclofen [Lioresal] 20 mg PO BID 12/21/15 03/06/22 History HYDROcodone/APAP 7.5-325MG [[place] 1 tab PO BID PRN 04/17/20 03/06/22 History 7.5-325] Pantoprazole Sodium [Protonix] 40 mg PO DAILY 04/17/20 03/06/22 History QUEtiapine [SEROquel] 50 mg PO HS 09/14/21 03/06/22 History SUMAtriptan succinate [Imitrex] 50 mg PO BID PRN 09/14/21 03/06/22 History rOPINIRole HCL [Requip] 1 mg PO HS 09/17/21 03/06/22 History DULoxetine HCL [Cymbalta] 20 mg PO BID 12/22/21 03/06/22 History Furosemide [Lasix] 20 mg PO BID@0900,1600 #60 tab 12/26/21 03/06/22 Rx Spironolactone [Aldactone] 25 mg PO DAILY #30 tab 12/26/21 03/06/22 Rx carvediloL [Coreg] 6.25 mg PO BID-W/MEALS #60 tablet 12/26/21 03/06/22 Rx Losartan [Cozaar] 25 mg PO DAILY #30 tab 12/30/21 03/06/22 Rx Albuterol Inhaler [Ventolin Hfa 2 puff INHALATION RT-QID PRN 01/03/22 03/06/22 History Inhaler] Ipratropium-Albuterol Nebulize 3 ml INHALATION RT-Q2H PRN each 01/06/22 03/06/22 Rx [Duoneb 0.5 mg-3 mg/3 ml Soln] Ipratropium-Albuterol Nebulize 3 ml INHALATION RT-QID 30 Days #60 01/06/22 03/06/22 Rx [Duoneb 0.5 mg-3 mg/3 ml Soln] each Fluticasone Propion/Salmeterol 2 puff INHALATION RT-BID 01/12/22 03/06/22 History [Advair Hfa 230-21 Mcg Inhaler] Mirtazapine [Remeron] 15 mg PO HS 01/12/22 03/06/22 History Aspirin 81 mg PO DAILY #90 tab 01/13/22 03/06/22 Rx Morphine Sulfate ER [Ms Contin] 30 mg PO Q12H 03/06/22 03/06/22 History dexAMETHasone 6 mg PO DAILY 03/06/22 03/06/22 History Allergies Allergy/AdvReac Type Severity Reaction Status Date / Time lisinopril Allergy Swelling Verified 03/06/22 15:14 of the mouth Physical Exam Vitals: Vital Signs Temp Pulse Resp BP Pulse Ox 03/06/22 14:20 59 L 16 101/67 98 03/06/22 14:04 77 16 102/60 98 03/06/22 13:49 88/65 03/06/22 13:43 87/63 03/06/22 13:42 97/60 03/06/22 13:41 72 17 85/68 97 03/06/22 12:11 74 03/06/22 12:01 70 03/06/22 11:34 18 03/06/22 11:27 97.3 F L 86 18 140/64 97 Intake and Output 03/06/22 03/06/22 03/06/22 06:59 14:59 22:59 Other: Weight 86.183 kg GENERAL: The patient is alert and oriented x3, not in any acute distress. Well developed, well nourished. HEENT: Pupils are round and equally reacting to light. EOMI. No scleral icterus. No conjunctival pallor. Normocephalic, atraumatic. No pharyngeal erythema. No thyromegaly. CARDIOVASCULAR: S1 and S2 present. No murmurs, rubs, or gallops. PULMONARY: Chest is clear to auscultation, no wheezing or crackles. ABDOMEN: Soft, nontender, nondistended, normoactive bowel sounds. No palpable organomegaly. MUSCULOSKELETAL: No joint swelling or deformity. EXTREMITIES: No cyanosis, clubbing, or pedal edema. NEUROLOGICAL: Gross neurological examination did not reveal any focal deficits. SKIN: No rashes. no petechiae. Results CBC & Chem 7: 03/06/22 11:37 03/06/22 11:37 Labs: Abnormal Lab Results - Last 24 Hours (Table) 03/06/22 03/06/22 03/06/22 Range/Units 11:37 11:37 11:37 RBC 4.24 L (4.30-5.90) m/uL D-Dimer 0.81 H (<0.60) mg/L FEU Potassium 3.2 L (3.5-5.1) mmol/L Glucose 143 H (74-99) mg/dL Plasma Lactic Acid Phong (0.7-2.0) mmol/L ALT 60 H (4-49) U/L Total Protein 6.0 L (6.3-8.2) g/dL 03/06/22 Range/Units 11:37 RBC (4.30-5.90) m/uL D-Dimer (<0.60) mg/L FEU Potassium (3.5-5.1) mmol/L Glucose (74-99) mg/dL Plasma Lactic Acid Phong 4.4 H* (0.7-2.0) mmol/L ALT (4-49) U/L Total Protein (6.3-8.2) g/dL Assessment and Plan Assessment: Acute COPD exacerbation associated with bronchial impaction of bilateral lower lobe and middle lobe areas. Elevated troponin, rule out cardiac causes Nonischemic cardiomyopathy with ejection fraction 35-40% History of Moderate mitral regurgitation. Nicotine dependent Plan: This is a pleasant 56 male with Covid, and elevated troponin patient was given 1 time dose of aspirin Start vitamin D, vitamin C and zinc Cardiology consult Pulmonary team on the case. Labs and medication were reviewed.. Continue same treatment. Continue with symptomatic treatment. Resume home medication. Monitor lytes and vitals. DVT and GI prophylaxis. Further recommendations as per clinical course of the patient DVT prophylaxis Lovenox GI Prophylaxis: Ppi PT/OT: Ordered and Pending
[2022-03-07] MEDS: carvediloL 6.25 MG TAB PO SCH ×2 (07:49→19:51)
[2022-03-07] MEDS: PANTOPRAZOLE 40 MG TABLET PO SCH (07:49)
[2022-03-07] MEDS: ALBUTEROL HFA INHALER INHALATION SCH ×4 (07:53→19:34)
[2022-03-07] MEDS: BACLOFEN 10 MG TAB PO SCH ×2 (07:53→20:05)
[2022-03-07] MEDS: ASCORBIC ACID 500 MG TAB PO SCH (07:53)
[2022-03-07] MEDS: SYMBICORT 160-4.5 MCG INHALER INHALATION SCH ×2 (07:53→19:34)
[2022-03-07] MEDS: DULoxetine HCL 20 MG CAPSULE.DR PO SCH ×2 (07:54→20:04)
[2022-03-07] MEDS: ENOXAPARIN 40 MG/0.4 ML SYRINGE SQ SCH (07:54)
[2022-03-07] MEDS: CHOLECALCIFEROL 25 MCG (1000 IU) TABLET PO SCH (07:54)
[2022-03-07] MEDS: MORPHINE SULFATE ER 30 MG TABLET PO SCH ×2 (07:55→20:04)
[2022-03-07] MEDS: LOSARTAN 25 MG TAB PO SCH (07:55)
[2022-03-07] MEDS: FUROSEMIDE 20 MG TAB PO SCH ×2 (07:55→19:51)
[2022-03-07] MEDS: SPIRONOLACTONE 25 MG TAB PO SCH (07:56)
[2022-03-07] MEDS: ZINC SULFATE 220 MG CAP PO SCH (07:56)
[2022-03-07] MEDS: TIOTROPIUM 2.5 MCG INHALER INHALATION SCH (08:10)
[2022-03-07] MEDS ORDERED: dexAMETHasone 2 MG TAB PO SCH (09:00)
[2022-03-07] MEDS ORDERED: AZITHROMYCIN 500 MG TAB PO SCH (09:00)
--- NOTE | 2022-03-07 09:31 | P.CRDCN ---
History of Present Illness History of present illness: This is a 56-year-old male with a past medical history significant for nonischemic cardiomyopathy, chronic back and neck pain, Pneumonia. Patient follows in the office with Dr. Geronimo. We have been asked to see the patient in consultation for chest pain. Patient presented to the hospital with a chief complaint of shortness of breath. Patient states that he was diagnosed over 19 on Sunday/Sunday last week. His initial symptoms were headache. Over the past week she's been having increased cough, productive cough with sputum, chills, shortness of breath. Secondary to his increased shortness of breath and presented emergency department. He denies any chest pain. He denies any assoc iated lightheadedness, dizziness, syncope or near syncope, vomiting, abdominal pain. No fever or chills currently. He denies any symptoms of orthopnea or PND. He continues to smoke 1/2 PPD. DIAGNOSTICS * EKG reveals sinus rhythm, heart rate 78 occasional PVC, nonspecific STT wave abnormalities. Prior EKG was similar findings * Chest CT A revealed bilateral lower lobe patchy ground glass opacities concerning for viral infectious process, no evidence of pulmonary embolism. * Chest xray - no acute cardiopulmonary process * Laboratory data: WBC 5.9, hemoglobin 13.9, platelets 225, d-dimer 0.8, sodium 139, potassium 3.2, BUN 10, serum creatinine 0.7, lactate 4.4, troponin 0.018, 0.3, 0.3, Coumadin 19 positive, BNP 1690 * Current home cardiac medications include carvedilol 6.25 mg twice a day, N eurontin 20 mg daily, losartan 25 mg daily, Lasix 20 mg twice a day, aspirin 81 mg daily * Recent echocardiogram obtained 11/2021 revealed an EF 3540 %, moderate mitral regurgitation mild tricuspid regurgitation * NEGRITA 01/13/2022- EF 4045%, moderate central mitral regurgitation * Cardiac catheterization history: 01/13/22 normal coronary arteries * Patient underwent Lexiscan stress test in June 2020 which was negative for ischemia REVIEW OF SYSTEMS: At the time of my exam: CONSTITUTIONAL: Denies fever or chills. HEENT: Denies blurred vision, vision changes, or eye pain. Denies hemoptysis CARDIOVASCULAR: Denies chest pain, Denies orthopnea. Denies PND. Denies palpitations RESPIRATORY: Reports shortness of breath, cough. GASTROINTESTINAL: Denies abdominal pain. Denies nausea or vomiting. HEMATOLOGIC: Denies bleeding disorders. GENITOURINARY: Denies any blood in urine. SKIN: Denies pruitis. Denies rash. PHYSICAL EXAM: VITAL SIGNS: Reviewed. GENERAL: Well-developed in no acute distress. HEENT: Head is normocephalic. Pupils are equal, round. Sclerae anicteric. Mucous membranes of the mouth are moist. Neck supple. No JVD LUNGS: Respirations even and unlabored. Lungs diffuse rhonchi bilaterally HEART: Regular rate and rhythm. S1 and S2 heard. Systolic murmur at apex. ABDOMEN: Soft. Nondistended. Nontender. EXTREMITIES: Normal range of motion. No clubbing or cyanosis. No lower extremity edema NEUROLOGIC: Awake and alert. Oriented x 3. ASSESSMENT: Shortness of breath COVID-19 infection/pneumonia Elevated troponin likely secondary to infection Moderate central mitral regurgitation History of nonischemic cardiomyopathy Nicotine dependence History of reaction to lisinopril with angioedema PLAN: From cardiology perspective, no further inpatient workup indicated at this time.Patient without chest pain, no acute ischemia on EKG. Recent NEGRITA and cardiac catheterization 01/13/2022 which revealed normal coronary arteries and moderate central MR. Recommend continuing home cardiac medications. On discharge, Follow up outpatient with Dr. Geronimo Please re-consult if needed. Nurse practitioner note has been reviewed by physician. Signing provider agrees with the documented findings, assessment, and plan of care. Past Medical History Past Medical History: Heart Failure, COPD, Eye Disorder, Musculoskeletal Disorder, Neurologic Disorder Additional Past Medical History / Comment(s): Multiple sclerosis USES A CANE/ walker TO AMBULATE, falls. has had in past occasional DOUBLE VISION. CHRONIC BACK NECK PAIN. HAD SPINAL STIMULATOR, THEN REMOVED; Migraine headache. Crohn's disease.lt ear [place] History of Any Multi-Drug Resistant Organisms: MRSA Date of last positivie culture/infection: 2014 MDRO Source:: lower back Past Surgical History: Appendectomy, Back Surgery, Bowel Resection, Hernia R epair Additional Past Surgical History / Comment(s): CERVICAL FUSION. SPINAL STIMULATOR implantation, revision and removal. FOREIGN BODY REMOVED RT CHEST WALL. 10/18/2015 wire removed from back. (from stimulator) Past Anesthesia/Blood Transfusion Reactions: Previous Problems w/ Anesthesia Additional Past Anesthesia/Blood Transfusion Reaction / Comment(s): STATES TAKES A LONG TIME TO WAKE UP Past Psychological History: Anxiety, Depression Smoking Status: Current every day smoker Past Alcohol Use History: Occasional Past Drug Use History: Marijuana - Past Family History Father Family Medical History: Cancer, Diabetes Mellitus Additional Family Medical History / Comment(s): CABG-TRIPLE BYPASS, Mother Family Medical History: Cancer, CVA/TIA, Diabetes Mellitus Additional Family Medical History / Comment(s): Stroke Brother(s) Additional Family Medical History / Comment(s): cardiomyopathy Medications and Allergies Home Medications Medication Instructions Recorded Confirmed Type Baclofen [Lioresal] 20 mg PO BID 12/21/15 03/06/22 History HYDROcodone/APAP 7.5-325MG [[place] 1 tab PO BID PRN 04/17/20 03/06/22 History 7.5-325] Pantoprazole Sodium [Protonix] 40 mg PO DAILY 04/17/20 03/06/22 History QUEtiapine [SEROquel] 50 mg PO HS 09/14/21 03/06/22 History SUMAtriptan succinate [Imitrex] 50 mg PO BID PRN 09/14/21 03/06/22 History rOPINIRole HCL [Requip] 1 mg PO HS 09/17/21 03/06/22 History DULoxetine HCL [Cymbalta] 20 mg PO BID 12/22/21 03/06/22 History Furosemide [Lasix] 20 mg PO BID@0900,1600 #60 tab 12/26/21 03/06/22 Rx Spironolactone [Aldactone] 25 mg PO DAILY #30 tab 12/26/21 03/06/22 Rx carvediloL [Coreg] 6.25 mg PO BID-W/MEALS #60 tablet 12/26/21 03/06/22 Rx Losartan [Cozaar] 25 mg PO DAILY #30 tab 12/30/21 03/06/22 Rx Albuterol Inhaler [Ventolin Hfa 2 puff INHALATION RT-QID PRN 01/03/22 03/06/22 History Inhaler] Ipratropium-Albuterol Nebulize 3 ml INHALATION RT-Q2H PRN each 01/06/22 03/06/22 Rx [Duoneb 0.5 mg-3 mg/3 ml Soln] Ipratropium-Albuterol Nebulize 3 ml INHALATION RT-QID 30 Days #60 01/06/22 03/06/22 Rx [Duoneb 0.5 mg-3 mg/3 ml Soln] each Fluticasone Propion/Salmeterol 2 puff INHALATION RT-BID 01/12/22 03/06/22 History [Advair Hfa 230-21 Mcg Inhaler] Mirtazapine [Remeron] 15 mg PO HS 01/12/22 03/06/22 History Aspirin 81 mg PO DAILY #90 tab 01/13/22 03/06/22 Rx Morphine Sulfate ER [Ms Contin] 30 mg PO Q12H 03/06/22 03/06/22 History dexAMETHasone 6 mg PO DAILY 03/06/22 03/06/22 History Allergies Allergy/AdvReac Type Severity Reaction Status Date / Time lisinopril Allergy Swelling Verified 03/06/22 15:14 of the mouth Physical Exam Vitals: Vital Signs Temp Pulse Pulse Resp BP BP Pulse Ox 03/07/22 03:17 97.6 F 60 16 118/62 94 L 03/06/22 21:50 97.8 F 63 20 103/65 96 03/06/22 18:05 97.5 F L 16 112/77 96 03/06/22 17:20 67 03/06/22 17:11 77 03/06/22 17:02 79 16 118/83 96 03/06/22 15:29 67 16 101/61 96 03/06/22 14:20 59 L 16 101/67 98 03/06/22 14:04 77 16 102/60 98 03/06/22 13:49 88/65 03/06/22 13:43 87/63 03/06/22 13:42 97/60 03/06/22 13:41 72 17 85/68 97 03/06/22 12:11 74 03/06/22 12:01 70 03/06/22 11:34 18 03/06/22 11:27 97.3 F L 86 18 140/64 97 Intake and Output 03/06/22 03/07/22 03/07/22 22:59 06:59 14:59 Other: # Voids 1 3 Weight 86.183 kg Results 03/06/22 11:37 03/06/22 11:37 Cardiac Enzymes 03/06/22 03/06/22 03/06/22 Range/Units 11:37 11:37 16:06 AST 52 (17-59) U/L Troponin I 0.018 0.300 H* (0.000-0.034) ng/mL 03/06/22 Range/Units 23:35 AST (17-59) U/L Troponin I 0.360 H* (0.000-0.034) ng/mL Coagulation 03/06/22 Range/Units 11:37 PT 9.6 (9.0-12.0) sec APTT 23.5 (22.0-30.0) sec CBC 03/06/22 Range/Units 11:37 WBC 5.9 (3.8-10.6) k/uL RBC 4.24 L (4.30-5.90) m/uL Hgb 13.9 (13.0-17.5) gm/dL Hct 40.9 (39.0-53.0) % Plt Count 225 (150-450) k/uL Comprehensive Metabolic Panel 03/06/22 Range/Units 11:37 Sodium 139 (137-145) mmol/L Potassium 3.2 L (3.5-5.1) mmol/L Chloride 104 (98-107) mmol/L Carbon Dioxide 22 (22-30) mmol/L BUN 10 (9-20) mg/dL Creatinine 0.73 (0.66-1.25) mg/dL Glucose 143 H (74-99) mg/dL Calcium 8.7 (8.4-10.2) mg/dL AST 52 (17-59) U/L ALT 60 H (4-49) U/L Alkaline Phosphatase 90 (38-126) U/L Total Protein 6.0 L (6.3-8.2) g/dL Albumin 3.6 (3.5-5.0) g/dL Current Medications Generic Name Dose Route Start Last Admin Trade Name Freq PRN Reason Stop Dose Admin Acetaminophen 650 mg 03/06/22 15:18 Acetaminophen Tab 325 Mg Tab PO Q6HR PRN Mild Pain or Fever > 100.5 Albuterol Sulfate 2 puff 03/06/22 20:00 03/06/22 20:56 Albuterol Hfa Inhaler INHALATION 2 puff RT-QID [facility] Administration Albuterol Sulfate 2 puff 03/06/22 21:21 Albuterol Hfa Inhaler INHALATION RT-QID PRN Shortness Of Breath Or Wheezing Ascorbic Acid 1,000 mg 03/07/22 09:00 Ascorbic Acid 500 Mg Tab PO DAILY [facility] Azithromycin 500 mg 03/07/22 09:00 Azithromycin 500 Mg Tab PO 03/08/22 09:01 DAILY [facility] Protocol Baclofen 20 mg 03/06/22 21:00 03/06/22 21:23 Baclofen 10 Mg Tab PO 20 mg BID C[facility]IS Administration Budesonide/Formoterol Fumarate 2 puff 03/06/22 20:00 03/06/22 20:56 Symbicort 160-4.5 Mcg Inhaler INHALATION 2 puff RT-BID [facility] Administration Carvedilol 6.25 mg 03/06/22 17:30 03/06/22 20:43 Carvedilol 6.25 Mg Tab PO Not Given BID-W/MEALS [facility] Cholecalciferol 50 mcg 03/07/22 09:00 Cholecalciferol 25 Mcg (1000 Iu) Tablet PO DAILY [facility] Dexamethasone 6 mg 03/07/22 09:00 Dexamethasone 2 Mg Tab PO DAILY [facility] Duloxetine HCl 20 mg 03/06/22 21:00 03/06/22 21:23 Duloxetine Hcl 20 Mg Capsule.Dr PO 20 mg BID [facility] Administration Enoxaparin Sodium 40 mg 03/06/22 20:45 03/06/22 21:23 Enoxaparin 40 Mg/0.4 Ml Syringe SQ 40 mg DAILY [facility] Administration Furosemide 20 mg 03/06/22 16:00 03/06/22 16:59 Furosemide 20 Mg Tab PO 20 mg BID@0900,1600 [facility] Administration Ceftriaxone Sodium 2 gm/ 50 mls @ 100 mls/hr 03/07/22 09:00 Sodium Chloride IVPB 03/10/22 09:29 Q24HR [facility] Protocol Losartan Potassium 25 mg 03/07/22 09:00 Losartan 25 Mg Tab PO DAILY [facility] Mirtazapine 15 mg 03/06/22 21:00 03/06/22 21:24 Mirtazapine 15 Mg Tab PO 15 mg HS [facility] Administration Miscellaneous Information 1 each 03/06/22 14:59 Pneumonia Protocol Utilized 1 Each Misc PO ONCE PRN Per Protocol Morphine Sulfate 30 mg 03/06/22 21:00 03/06/22 21:24 Morphine Sulfate Er 30 Mg Tablet PO 30 mg Q12HR [facility] Administration Protocol Naloxone HCl 0.2 mg 03/06/22 15:18 Naloxone 0.4 Mg/Ml 1 Ml Vial IV Q2M PRN Opioid Reversal Pantoprazole Sodium 40 mg 03/07/22 07:30 Pantoprazole 40 Mg Tablet PO AC-BRKFST [facility] Quetiapine Fumarate 50 mg 03/06/22 21:00 03/06/22 21:24 Quetiapine 50 Mg Tab PO 50 mg HS [facility] Administration Ropinirole HCl 1 mg 03/06/22 21:00 03/06/22 21:23 Ropinirole Hcl 1 Mg Tab PO 1 mg HS [facility] Administration Spironolactone 25 mg 03/07/22 09:00 Spironolactone 25 Mg Tab PO DAILY [facility] Tiotropium [place] 2 puff 03/07/22 08:00 Tiotropium 2.5 Mcg Inhaler INHALATION RT-DAILY [facility] Zinc Sulfate 220 mg 03/07/22 09:00 Zinc Sulfate 220 Mg Cap PO DAILY [facility] Intake and Output 03/06/22 03/07/22 03/07/22 22:59 06:59 14:59 Other: # Voids 1 3 Weight 86.183 kg 03/06/22 11:37 03/06/22 11:37
[2022-03-07] MEDS: methylPREDNISolone SOD SUCCI 125 MG/2 ML VIAL IV SCH ×4 (10:53→23:19)
[2022-03-07 11:22] LABS: C Reactive Protein <0.30 mg/dL (0.00-0.80)
--- NOTE | 2022-03-07 11:23 | P.CNPUL ---
History of Present Illness Consult date: 03/07/22 Requesting physician: Chinmay Upton Reason for consult: dyspnea, hypoxemia, abnormal CXR/CT Chief complaint: Shortness of breath, cough, congestion History of present illness: This is a pleasant 56-year-old male patient with a known history of multiple sclerosis, chronic dysphagia, chronic obstructive pulmonary disease, chronic and ongoing tobacco dependence, chronic pain syndrome, migraines, Crohn's disease. He presented to the emergency room on 03/06/2022 with a 7-8 day history of increasing shortness of breath, cough congestion. Yesterday he was quite short of breath and presented to the emergency room. He had been diagnosed with CoVID hydroxy 6 days prior to his arrival here. He was on Decadron in the outpatient setting. The patient is seen today in consultation on the regular medical floor. He is currently sitting up in bed. Awake and alert in no acute distress. He is 91% O2 saturation on room air. His lungs do have by collaterals scattered crackles. His x-ray revealed no acute cardiopulmonary process. No significant change compared to previous in January 2022. Evidence of COPD. T angiogram revealed no evidence of pulmonary embolism. There was bilateral lower lobe patchy groundglass opacities concerning for atypical viral infection versus atelectasis. Moderate emphysematous changes. White count 5.9. Hemoglobin 13.9. Lymphocytes 1.9. D-dimer 0.81. Human 39. Potassium 3.2. BUN 10. Creatinine 0.7. Glucose 143. Initial lactic acid 2.7. Currently 1.7. Troponin 0.360. Pro BNP 1690. Pro-calcitonin 0.05. [place] virus by PCR positive. Influenza screen negative. He was initiated on Lovenox, Decadron and vitamin supplements. Review of Systems REVIEW OF SYSTEMS: CONSTITUTIONAL: Denies any recent significant weight loss or weight gain. EYES: Denies change in vision. EARS, NOSE, MOUTH, THROAT: Denies headaches, denies sore throat. CARDIOVASCULAR: Denies chest pain, palpitations or syncopal episodes. RESPIRATORY: Positive for shortness of breath, cough, congestion no hemoptysis. GASTROINTESTINAL: Denies change in appetite, denies abdominal pain GENITOURINARY: Denies hematuria, denies infections. MUSKULOSKELETAL: Denies pain, denies swelling. INTEGUMENTARY: Denies rash, denies eczema. NEUROLOGICAL: Denies recent memory loss, no recent seizure activity. PSYCHIATRIC: Denies anxiety, denies depression. HEMATOLOGIC/LYMPHATIC: Denies anemia, denies enlarged lymph nodes. Past Medical History Past Medical History: Heart Failure, COPD, Eye Disorder, Musculoskeletal Dis order, Neurologic Disorder Additional Past Medical History / Comment(s): Multiple sclerosis USES A CANE/ walker TO AMBULATE, falls. has had in past occasional DOUBLE VISION. CHRONIC BACK NECK PAIN. HAD SPINAL STIMULATOR, THEN REMOVED; Migraine headache. Crohn's disease.lt ear [place] History of Any Multi-Drug Resistant Organisms: MRSA Date of last positivie culture/infection: 2014 MDRO Source:: lower back Past Surgical History: Appendectomy, Back Surgery, Bowel Resection, Hernia Repair Additional Past Surgical History / Comment(s): CERVICAL FUSION. SPINAL STIMULATOR implantation, revision and removal. FOREIGN BODY REMOVED RT CHEST WALL. 10/18/2015 wire removed from back. (from stimulator) Past Anesthesia/Blood Transfusion Reactions: Previous Problems w/ Anesthesia Additional Past Anesthesia/Blood Transfusion Reaction / Comment(s): STATES TAKES A LONG TIME TO WAKE UP Past Psychological History: Anxiety, Depression Smoking Status: Current every day smoker Past Alcohol Use History: Occasional Past Drug Use History: Marijuana - Past Family History Father Family Medical History: Cancer, Diabetes Mellitus Additional Family Medical History / Comment(s): CABG-TRIPLE BYPASS, Mother Family Medical History: Cancer, CVA/TIA, Diabetes Mellitus Additional Family Medical History / Comment(s): Stroke Brother(s) Additional Family Medical History / Comment(s): cardiomyopathy Medications and Allergies Home Medications Medication Instructions Recorded Confirmed Type Baclofen [Lioresal] 20 mg PO BID 12/21/15 03/06/22 History HYDROcodone/APAP 7.5-325MG [[place] 1 tab PO BID PRN 04/17/20 03/06/22 History 7.5-325] Pantoprazole Sodium [Protonix] 40 mg PO DAILY 04/17/20 03/06/22 History QUEtiapine [SEROquel] 50 mg PO HS 09/14/21 03/06/22 History SUMAtriptan succinate [Imitrex] 50 mg PO BID PRN 09/14/21 03/06/22 History rOPINIRole HCL [Requip] 1 mg PO HS 09/17/21 03/06/22 History DULoxetine HCL [Cymbalta] 20 mg PO BID 12/22/21 03/06/22 History Furosemide [Lasix] 20 mg PO BID@0900,1600 #60 tab 12/26/21 03/06/22 Rx Spironolactone [Aldactone] 25 mg PO DAILY #30 tab 12/26/21 03/06/22 Rx carvediloL [Coreg] 6.25 mg PO BID-W/MEALS #60 tablet 12/26/21 03/06/22 Rx Losartan [Cozaar] 25 mg PO DAILY #30 tab 12/30/21 03/06/22 Rx Albuterol Inhaler [Ventolin Hfa 2 puff INHALATION RT-QID PRN 01/03/22 03/06/22 History Inhaler] Ipratropium-Albuterol Nebulize 3 ml INHALATION RT-Q2H PRN each 01/06/22 03/06/22 Rx [Duoneb 0.5 mg-3 mg/3 ml Soln] Ipratropium-Albuterol Nebulize 3 ml INHALATION RT-QID 30 Days #60 01/06/22 03/06/22 Rx [Duoneb 0.5 mg-3 mg/3 ml Soln] each Fluticasone Propion/Salmeterol 2 puff INHALATION RT-BID 01/12/22 03/06/22 History [Advair Hfa 230-21 Mcg Inhaler] Mirtazapine [Remeron] 15 mg PO HS 01/12/22 03/06/22 History Aspirin 81 mg PO DAILY #90 tab 01/13/22 03/06/22 Rx Morphine Sulfate ER [Ms Contin] 30 mg PO Q12H 03/06/22 03/06/22 History dexAMETHasone 6 mg PO DAILY 03/06/22 03/06/22 History Allergies Allergy/AdvReac Type Severity Reaction Status Date / Time lisinopril Allergy Swelling Verified 03/06/22 15:14 of the mouth Physical Exam Vitals: Vital Signs Temp Pulse Pulse Resp BP BP Pulse Ox 03/07/22 07:40 97.8 F 53 L 18 113/70 91 L 03/07/22 03:17 97.6 F 60 16 118/62 94 L 03/06/22 21:50 97.8 F 63 20 103/65 96 03/06/22 18:05 97.5 F L 16 112/77 96 03/06/22 17:20 67 03/06/22 17:11 77 03/06/22 17:02 79 16 118/83 96 03/06/22 15:29 67 16 101/61 96 03/06/22 14:20 59 L 16 101/67 98 03/06/22 14:04 77 16 102/60 98 03/06/22 13:49 88/65 03/06/22 13:43 87/63 03/06/22 13:42 97/60 03/06/22 13:41 72 17 85/68 97 03/06/22 12:11 74 03/06/22 12:01 70 03/06/22 11:34 18 03/06/22 11:27 97.3 F L 86 18 140/64 97 Intake and Output 03/06/22 03/07/22 03/07/22 22:59 06:59 14:59 Other: # Voids 1 3 Weight 86.183 kg GENERAL EXAM: Alert, pleasant 56-year-old male patient, on room air, fairly comfortable in no apparent distress. HEAD: Normocephalic. EYES: Normal reaction of pupils, equal size. NOSE: Clear with pink turbinates. THROAT: No erythema or exudates. NECK: No masses, no JVD. CHEST: No chest wall deformity. LUNGS: Equal air entry with crackles in the bilateral bases. CVS: S1 and S2 normal with no audible murmur, regular rhythm. ABDOMEN: No hepatosplenomegaly, normal bowel sounds, no guarding or rigidity. SPINE: No scoliosis or deformity SKIN: No rashes CENTRAL NERVOUS SYSTEM: No focal deficits, tone is normal in all 4 extremities. EXTREMITIES: There is no peripheral edema. No clubbing, no cyanosis. Peripheral pulses are intact. Results - Laboratory Findings CBC and BMP: 03/06/22 11:37 03/06/22 11:37 PT/INR, D-dimer PT 9.6 sec (9.0-12.0) 03/06/22 11:37 INR 0.9 (<1.2) 03/06/22 11:37 D-Dimer 0.81 mg/L FEU (<0.60) H 03/06/22 11:37 Abnormal lab findings: Abnormal Labs 03/06/22 03/06/2222 11:37 11:37 11:37 RBC 4.24 L D-Dimer 0.81 H Potassium 3.2 L Glucose 143 H Plasma Lactic Acid Phong ALT 60 H Troponin I Total Protein 6.0 L Coronavirus (PCR) 03/06/22 03/06/22 03/06/22 11:37 15:28 16:06 RBC D-Dimer Potassium Glucose Plasma Lactic Acid Phong 4.4 H* ALT Troponin I 0.300 H* Total Protein Coronavirus (PCR) Detected A 03/06/22 03/06/22 03/06/22 16:08 19:25 23:35 RBC D-Dimer Potassium Glucose Plasma Lactic Acid Phong 2.2 H* 3.5 H* 2.7 H* ALT Troponin I Total Protein Coronavirus (PCR) 03/06/22 23:35 RBC D-Dimer Potassium Glucose Plasma Lactic Acid Phong ALT Troponin I 0.360 H* Total Protein Coronavirus (PCR) - Diagnostic Findings Chest x-ray: image reviewed CT scan - chest: image reviewed Assessment and Plan Assessment: Acute hypoxemic respiratory failure secondary to acute COVID-19 pneumonia. Outside the window for Remdesivir. Not vaccinated. Normal pro-calcitonin. Acute exacerbation of chronic obstructive pulmonary disease secondary to above Chronic and ongoing tobacco dependence History of multiple sclerosis History of Crohn's disease History of migraines Chronic pain syndrome History of moderate mitral regurgitation. History of nonischemic cardiomyopathy, ejection fraction 40-45% Normal coronary arteries per cardiac catheterization 01/13/2022 Plan: The patient was seen and evaluated X-ray, CAT scans and labs reviewed Discontinue Decadron, initiate IV Solu-Medrol 60 mg every 6 hours Continue Symbicort, albuterol Continue Lovenox, vitamin supplements Discontinue antibiotics Maintain O2 saturations greater than 92% We will continue to follow and make further recommendations based on his clinical status I have personally seen and examined the patient, performed the documentation and the assessment and plan as written. Number of minutes spent on the visit: 20.
[2022-03-07] MEDS: ASPIRIN 81 MG PO SCH (12:49)
[2022-03-07 13:51] LABS: LDH 183 U/L (120-246)
[2022-03-07] MEDS: QUEtiapine 50 MG TAB PO SCH (20:04)
[2022-03-07] MEDS: MIRTAZAPINE 15 MG TAB PO SCH (20:05)
[2022-03-08] MEDS: methylPREDNISolone SOD SUCCI 125 MG/2 ML VIAL IV SCH ×2 (04:55→12:02)
[2022-03-08] MEDS: SYMBICORT 160-4.5 MCG INHALER INHALATION SCH (07:49)
[2022-03-08] MEDS: ALBUTEROL HFA INHALER INHALATION SCH ×2 (07:49→11:36)
[2022-03-08] MEDS: TIOTROPIUM 2.5 MCG INHALER INHALATION SCH (07:50)
[2022-03-08 08:17] VITALS: BP 114/75; RESP 18; TEMP 97.4
[2022-03-08 09:08] VITALS: PULSE 61
[2022-03-08] MEDS: LOSARTAN 25 MG TAB PO SCH (09:08)
[2022-03-08] MEDS: MORPHINE SULFATE ER 30 MG TABLET PO SCH (09:08)
[2022-03-08] MEDS: CHOLECALCIFEROL 25 MCG (1000 IU) TABLET PO SCH (09:08)
[2022-03-08] MEDS: ASPIRIN 81 MG PO SCH (09:08)
[2022-03-08] MEDS: ZINC SULFATE 220 MG CAP PO SCH (09:08)
[2022-03-08] MEDS: PANTOPRAZOLE 40 MG TABLET PO SCH (09:08)
[2022-03-08] MEDS: ASCORBIC ACID 500 MG TAB PO SCH (09:09)
[2022-03-08] MEDS: BACLOFEN 10 MG TAB PO SCH (09:09)
[2022-03-08] MEDS: FUROSEMIDE 20 MG TAB PO SCH (09:09)
[2022-03-08] MEDS: SPIRONOLACTONE 25 MG TAB PO SCH (09:09)
[2022-03-08] MEDS: DULoxetine HCL 20 MG CAPSULE.DR PO SCH (09:10)
[2022-03-08] MEDS: ENOXAPARIN 40 MG/0.4 ML SYRINGE SQ SCH (09:10)
[2022-03-08] MEDS: carvediloL 6.25 MG TAB PO SCH (09:16)
--- NOTE | 2022-03-08 10:43 | P.PN ---
Subjective Progress Note Date: 03/08/22 This is a pleasant 56-year-old male patient with a known history of multiple sclerosis, chronic dysphagia, chronic obstructive pulmonary disease, chronic and ongoing tobacco dependence, chronic pain syndrome, migraines, Crohn's disease. He presented to the emergency room on 03/06/2022 with a 7-8 day history of increasing shortness of breath, cough congestion. Yesterday he was quite short of breath and presented to the emergency room. He had been diagnosed with CoVID hydroxy 6 days prior to his arrival here. He was on Decadron in the outpatient setting. The patient is seen today in consultation on the regular medical floor. He is currently sitting up in bed. Awake and alert in no acute distr ess. He is 91% O2 saturation on room air. His lungs do have by collaterals scattered crackles. His x-ray revealed no acute cardiopulmonary process. No significant change compared to previous in January 2022. Evidence of COPD. T angiogram revealed no evidence of pulmonary embolism. There was bilateral lower lobe patchy groundglass opacities concerning for atypical viral infection versus atelectasis. Moderate emphysematous changes. White count 5.9. Hemoglobin 13.9. Lymphocytes 1.9. D-dimer 0.81. Human 39. Potassium 3.2. BUN 10. Creatinine 0.7. Glucose 143. Initial lactic acid 2.7. Currently 1.7. Troponin 0.360. Pro BNP 1690. Pro-calcitonin 0.05. Duong virus by PCR positi ve. Influenza screen negative. He was initiated on Lovenox, Decadron and vitamin supplements. The patient is seen today 03/08/2022 in follow-up on the regular medical floor. He is currently sitting up and breakfast. Maintaining O2 saturations in the 90s on room air. Feeling better today compared to yesterday. Less cough and congestion. He's been afebrile. Hemodynamically stable. Blood cultures reveal no growth. Sputum culture pending. He is continued on Symbicort, Ventolin, IV solu Medrol, Lovenox and vitamin supplements. Objective - Vital Signs Vital signs: Vital Signs Temp 97.4 F L 03/08/22 07:00 Pulse 61 03/08/22 09:07 Resp 18 03/08/22 09:08 BP 114/75 03/08/22 07:00 Pulse Ox 95 03/08/22 07:00 FiO2 Intake & Output 03/07/22 03/08/22 03/08/22 18:59 06:59 18:59 Intake Total 240 Balance 240 Intake: Oral 240 Other: Voiding Method Toilet Toilet # Voids 3 - Exam GENERAL EXAM: Alert, pleasant 56-year-old male patient, on room air, fairly comfortable in no apparent distress. HEAD: Normocephalic. EYES: Normal reaction of pupils, equal size. NOSE: Clear with pink turbinates. THROAT: No erythema or exudates. NECK: No masses, no JVD. CHEST: No chest wall deformity. LUNGS: Equal air entry with crackles in the bilateral bases. CVS: S1 and S2 normal with no audible murmur, regular rhythm. ABDOMEN: No hepatosplenomegaly, normal bowel sounds, no guarding or rigidity. SPINE: No scoliosis or deformity SKIN: No rashes CENTRAL NERVOUS SYSTEM: No focal deficits, tone is normal in all 4 extremities. EXTREMITIES: There is no peripheral edema. No clubbing, no cyanosis. Peripheral pulses are intact. - Labs CBC & Chem 7: 03/06/22 11:37 03/06/22 11:37 Labs: Microbiology - Last 24 Hours (Table) 03/07/22 19:34 Sputum Culture - Preliminary Sputum 03/06/22 16:06 Blood Culture - Preliminary Blood No Growth after 24 hours Assessment and Plan Assessment: Acute hypoxemic respiratory failure secondary to acute COVID-19 pneumonia. Outside the window for Remdesivir. Not vaccinated. Normal pro-calcitonin. Acute exacerbation of chronic obstructive pulmonary disease secondary to above Chronic and ongoing tobacco dependence History of multiple sclerosis History of Crohn's disease History of migraines Chronic pain syndrome History of moderate mitral regurgitation. History of nonischemic cardiomyopathy, ejection fraction 40-45% Normal coronary arteries per cardiac catheterization 01/13/2022 Plan: The patient was seen and evaluated He is cleared for discharge from the pulmonary standpoint Continue his home pulmonary medications Follow-up in one to two-weeks I have personally seen and examined the patient, performed the documentation and the assessment and plan as written. Number of minutes spent on the visit: 10.
[2022-03-08 12:14] LABS: Magnesium 1.9 mg/dL (1.6-2.3); Potassium 4.6 mmol/L (3.5-5.1)
== END 2022-03-08 12:55 | disposition home or self-care (01) | DRG 177 ==
LOC: EC 11:24 → 6NMEDSUR 15:23 → OBSVTOIN 03-07 12:23
PROVIDERS: ADMIT Family Medicine; ATTEND Family Medicine
DX: U07.1 COVID-19 (principal); J12.82 Pneumonia due to coronavirus disease 2019; J96.01 Acute respiratory failure with hypoxia; I42.8 Other cardiomyopathies; K50.90 Crohn's disease, unspecified, without complications; J44.0 Chronic obstructive pulmonary disease with (acute) lower respiratory infection; J44.1 Chronic obstructive pulmonary disease with (acute) exacerbation; R77.8 Other specified abnormalities of plasma proteins; I34.0 Nonrheumatic mitral (valve) insufficiency; F17.210 Nicotine dependence, cigarettes, uncomplicated; G35 Multiple sclerosis; G89.4 Chronic pain syndrome; F41.9 Anxiety disorder, unspecified; F32.A Depression, unspecified; I49.3 Ventricular premature depolarization; I50.9 Heart failure, unspecified; H91.92 Unspecified hearing loss, left ear; Z28.310 Unvaccinated for COVID-19; Z71.6 Tobacco abuse counseling; Z86.14 Personal history of Methicillin resistant Staphylococcus aureus infection; Z88.8 Allergy status to other drugs, medicaments and biological substances; Z79.82 Long term (current) use of aspirin; Z79.899 Other long term (current) drug therapy; Z98.1 Arthrodesis status; Z87.01 Personal history of pneumonia (recurrent); Z83.3 Family history of diabetes mellitus; Z82.3 Family history of stroke; Z82.49 Family history of ischemic heart disease and other diseases of the circulatory system
CPT/HCPCS: 36415; 71046; 71275; 80053; 82728; 83605; 83615; 83735; 83880; 84132; 84145; 84484; 85025; 85379; 85610; 85730; 86140; 87040; 87070; 87205; 87502; 87635; 93005; 94640; 96374; 96375; 99285

== ENCOUNTER 2022-05-25 19:43 | Emergency (ER) | payer MEDICARE ==
[2022-05-25 19:53] VITALS: BP 99/64; PULSE 88; RESP 20; TEMP 97.5
--- NOTE | 2022-05-25 20:50 | US ---
EXAMINATION TYPE: US scrotum with doppler. Grayscale and color Doppler Duplex imaging performed of [facility] scrotum. DATE OF EXAM: 05/25/2022 COMPARISON: NONE CLINICAL HISTORY: left testicular pain. Patient states lifting heavy lumber a few days ago. Pain has been increasing on left side. No swelling. EXAM MEASUREMENTS: TESTICLES: Right Testicle: 3.0 x 3.6 x 2.2 cm Left Testicle: 3.6 x 3.0 x 2.1 cm EPIDIDYMIS HEAD: Estimated due to multiple cysts Right Epididymis: 1.7 x 1.7 x 1.7 cm Left Epididymis: 1.4 x 1.2 x 1.0 cm Doppler performed to assess for testicular vascularity; good bilateral color flow and waveforms are s een. There is no evidence of testicular torsion. Presence of hydroceles: no Presence of varicoceles: no Multiple cysts seen throughout multiple epididymi. Largest right = 2.1x 2.1 x 2.2 cm and largest on left = 1.4 x 1.5 x 1.3 cm. Cystic lesions seen in right testicle with largest cluster seen superior = 1.1 x 1.0 x 0.5 cm IMPRESSION: Multiple bilateral epididymal cysts. Multiple testicular cysts. No evidence of solid testicular mass. No testicular torsion.
[2022-05-25] MEDS ORDERED: SODIUM CHLORIDE 0.9% 1,000 ML IV STA (22:05)
[2022-05-25] MEDS ORDERED: KETOROLAC 15 MG/ML 1 ML VIAL IVP STA (22:05)
[2022-05-25] MEDS ORDERED: ONDANSETRON 4 MG/2 ML VIAL IVP STA (22:05)
[2022-05-25] MEDS ORDERED: MORPHINE SULFATE 4 MG/ML SYRINGE IV STA (22:05)
--- NOTE | 2022-05-25 22:06 | ED ---
Abdominal Pain HPI - General Stated Complaint: testicle issues Time Seen by Provider: 05/25/22 21:21 Source: patient, RN notes reviewed, old records reviewed Mode of arrival: ambulatory Limitations: no limitations - History of Present Illness Initial Comments: This is a 48-year-old male DF for evaluation of severe groin pain severe scrotal pain pain that appears to be going from left flank into the scrotum. Pain is severe. Nausea no vomiting patient does not feel well. Patient is asking for pain medication. MD Complaint: abdominal pain, flank pain -: hour(s) Location: diffuse, LLQ, RLQ, L flank, R flank Radiation: L flank, R flank Migration to: LLQ, RLQ, suprapubic Severity: moderate Severity scale (1-10): 6 Consistency: constant Improves With: nothing Worsens With: nothing, eating Associated Symptoms: nausea - Related Data Home Medications Medication Instructions Recorded Confirmed Baclofen [Lioresal] 20 mg PO BID 12/21/15 04/06/22 HYDROcodone/APAP 7.5-325MG [Randolph 1 tab PO BID 04/17/20 04/06/22 7.5-325] Pantoprazole Sodium [Protonix] 40 mg PO DAILY 04/17/20 04/06/22 QUEtiapine [SEROquel] 50 mg PO HS 09/14/21 04/06/22 SUMAtriptan succinate [Imitrex] 50 mg PO BID PRN 09/14/21 04/06/22 rOPINIRole HCL [Requip] 1 mg PO HS 09/17/21 04/06/22 DULoxetine HCL [Cymbalta] 20 mg PO HS 12/22/21 04/06/22 Albuterol Inhaler [Ventolin Hfa 2 puff INHALATION RT-QID PRN 01/03/22 04/06/22 Inhaler] Fluticasone Propion/Salmeterol 2 puff INHALATION RT-BID 01/12/22 04/06/22 [Advair Hfa 230-21 Mcg Inhaler] Mirtazapine [Remeron] 15 mg PO HS 01/12/22 04/06/22 Morphine Sulfate ER [Ms Contin] 30 mg PO Q12H 03/06/22 04/06/22 Cyanocobalamin (Vitamin B-12) 2,000 mcg PO DAILY 04/06/22 04/06/22 [Vitamin B-12] Ferrous Sulfate [Iron (65 MG 325 mg PO DAILY 04/06/22 04/06/22 Elemental)] Folic Acid 1.5 mg PO DAILY 04/06/22 04/06/22 Pyridoxine HCl (Vitamin B6) 25 mg PO DAILY 04/06/22 04/06/22 [Pyridoxine HCl] Ubidecarenone [Coenzyme Q10] 200 mg PO DAILY 04/06/22 04/06/22 carvediloL [Coreg] 6.25 mg PO BID 04/06/22 04/06/22 tadalafiL 20 mg PO DAILY PRN 04/06/22 04/06/22 Previous Rx's Medication Instructions Recorded Furosemide [Lasix] 20 mg PO BID@0900,1600 #60 tab 12/26/21 Spironolactone [Aldactone] 25 mg PO DAILY #30 tab 12/26/21 Ipratropium-Albuterol Nebulize 3 ml INHALATION RT-Q2H PRN each 01/06/22 [Duoneb 0.5 mg-3 mg/3 ml Soln] Ipratropium-Albuterol Nebulize 3 ml INHALATION RT-QID 30 Days #60 01/06/22 [Duoneb 0.5 mg-3 mg/3 ml Soln] each Aspirin 81 mg PO DAILY #90 tab 01/13/22 Ascorbic Acid [Vitamin C] 1,000 mg PO DAILY tab 03/08/22 Cholecalciferol [Vitamin D3 (25 50 mcg PO DAILY tab 03/08/22 Mcg = 1000 Iu)] Zinc Sulfate [Orazinc] 220 mg PO DAILY #30 cap 03/08/22 Allergies Allergy/AdvReac Type Severity Reaction Status Date / Time lisinopril Allergy Swelling Verified 05/25/22 19:53 of the mouth Review of Systems ROS Statement: Those systems with pertinent positive or pertinent negative responses have been documented in the HPI. ROS Other: All systems not noted in ROS Statement are negative. Past Medical History Past Medical History: Chest Pain / Angina, Heart Failure, COPD, Eye Disorder, Musculoskeletal Disorder, Neurologic Disorder Additional Past Medical History / Comment(s): Multiple sclerosis USES A CANE/ walker TO AMBULATE, falls. has had in past occasional DOUBLE VISION. CHRONIC BACK NECK PAIN. HAD SPINAL STIMULATOR, THEN REMOVED; Migraine headache. Crohn's disease.lt ear iqugmiut History of Any Multi-Drug Resistant Organisms: MRSA Date of last positivie culture/infection: 2014 MDRO Source:: lower back Past Surgical History: Appendectomy, Back Surgery, Bowel Resection, Hernia Repair Additional Past Surgical History / Comment(s): CERVICAL FUSION. SPINAL STIMULATOR implantation, revision and removal. FOREIGN BODY REMOVED RT CHEST WALL. 10/18/2015 wire removed from back. (from stimulator) Past Anesthesia/Blood Transfusion Reactions: Previous Problems w/ Anesthesia Additional Past Anesthesia/Blood Transfusion Reaction / Comment(s): STATES TAKES A LONG TIME TO WAKE UP Past Psychological History: Anxiety, Depression Smoking Status: Current every day smoker Past Alcohol Use History: Occasional Past Drug Use History: Marijuana - Past Family History Father Family Medical History: Cancer, Diabetes Mellitus Additional Family Medical History / Comment(s): CABG-TRIPLE BYPASS, Mother Family Medical History: Cancer, CVA/TIA, Diabetes Mellitus Additional Family Medical History / Comment(s): Stroke Brother(s) Additional Family Medical History / Comment(s): cardiomyopathy General Exam Limitations: no limitations General appearance: alert, in no apparent distress Head exam: Present: atraumatic, normocephalic, normal inspection Eye exam: Present: normal appearance, PERRL, EOMI. Absent: scleral icterus, conjunctival injection, periorbital swelling ENT exam: Present: normal exam, mucous membranes moist Neck exam: Present: normal inspection. Absent: tenderness, meningismus, lymphadenopathy Respiratory exam: Present: normal lung sounds bilaterally. Absent: respiratory distress, wheezes, rales, rhonchi, stridor Cardiovascular Exam: Present: regular rate, normal rhythm, normal heart sounds. Absent: systolic murmur, diastolic murmur, rubs, gallop, clicks GI/Abdominal exam: Present: soft, normal bowel sounds. Absent: distended, tenderness, guarding, rebound, rigid Extremities exam: Present: normal inspection, full ROM, normal capillary refill. Absent: tenderness, pedal edema, joint swelling, calf tenderness Back exam: Present: normal inspection Neurological exam: Present: alert, oriented X3, CN II-XII intact Psychiatric exam: Present: normal affect, normal mood Skin exam: Present: warm, dry, intact, normal color. Absent: rash Course Vital Signs 05/25/22 19:50 Temperature 97.5 F L Pulse Rate 88 Respiratory 20 Rate Blood Pressure 99/64 O2 Sat by Pulse 98 Oximetry - Reevaluation(s) Reevaluation #1: 05/25/22 Medical record is reviewed Patient improved here in the ER Patient informed results and questions answered Reevaluation #2: 05/25/22 Patient symptoms are improved here in the ER Patient informed results and questions answered Medical Decision Making - Medical Decision Making 56 male to the emergency department for evaluation reassured over symptoms. Imaging is negative pain is controlled and patient can be discharged home - Lab Data Result diagrams: 05/25/22 22:26 05/25/22 22:26 Lab Results 05/25/22 05/25/22 Range/Units 22:26 22:26 WBC 8.5 (3.8-10.6) k/uL RBC 4.28 L (4.30-5.90) m/uL Hgb 13.7 (13.0-17.5) gm/dL Hct 40.0 (39.0-53.0) % MCV 93.4 (80.0-100.0) fL MCH 32.0 (25.0-35.0) pg MCHC 34.3 (31.0-37.0) g/dL RDW 12.0 (11.5-15.5) % Plt Count 302 (150-450) k/uL MPV 8.0 Neutrophils % 62 % Lymphocytes % 25 % Monocytes % 7 % Eosinophils % 3 % Basophils % 1 % Neutrophils # 5.2 (1.3-7.7) k/uL Lymphocytes # 2.1 (1.0-4.8) k/uL Monocytes # 0.6 (0-1.0) k/uL Eosinophils # 0.3 (0-0.7) k/uL Basophils # 0.1 (0-0.2) k/uL Sodium 135 L (137-145) mmol/L Potassium 4.5 (3.5-5.1) mmol/L Chloride 103 (98-107) mmol/L Carbon Dioxide 28 (22-30) mmol/L Anion Gap 4 mmol/L BUN 15 (9-20) mg/dL Creatinine 0.77 (0.66-1.25) mg/dL Est GFR (CKD-EPI)AfAm >90 (>60 ml/min/1.73 sqM) Est GFR (CKD-EPI)NonAf >90 (>60 ml/min/1.73 sqM) Glucose 93 (74-99) mg/dL Calcium 9.0 (8.4-10.2) mg/dL Total Bilirubin 0.3 (0.2-1.3) mg/dL AST 22 (17-59) U/L ALT 21 (4-49) U/L Alkaline Phosphatase 96 (38-126) U/L Total Protein 6.4 (6.3-8.2) g/dL Albumin 3.9 (3.5-5.0) g/dL Amylase 59 (30-110) U/L Lipase 46 (23-300) U/L - Radiology Data Radiology results: report reviewed (Ultrasound scrotum and CT abdomen and pelvis is negative for acute disease), image reviewed Disposition Clinical Impression: Abdominal pain Disposition: HOME SELF-CARE Instructions (If sedation given, give patient instructions): Abdominal Pain (ED) Is patient prescribed a controlled substance at d/c from ED?: No Referrals: Mack Fox DO [Primary Care Provider] - 1-2 days Time of Disposition: 00:00
[2022-05-25 22:35] LABS: Basophils # (A) 0.1 k/uL (0-0.2); Basophils % (A) 1 %; Eosinophils # (A) 0.3 k/uL (0-0.7); Eosinophils % (A) 3 %; HGB 13.7 gm/dL (13.0-17.5); Lymphocytes # (A) 2.1 k/uL (1.0-4.8); Lymphocytes % (A) 25 %; MCHC 34.3 g/dL (31.0-37.0); MCV 93.4 fL (80.0-100.0); Monocytes # (A) 0.6 k/uL (0-1.0); Monocytes % (A) 7 %; Neutrophils # (A) 5.2 k/uL (1.3-7.7); Neutrophils % (A) 62 %; Platelet Count 302 k/uL (150-450); RBC 4.28 m/uL (4.30-5.90); WBC 8.5 k/uL (3.8-10.6)
[2022-05-25 22:46] LABS: ALT 21 U/L (4-49); AST 22 U/L (17-59); African American GFR (CKD) >90 (>60 ml/min/1.73 sqM); Albumin 3.9 g/dL (3.5-5.0); Alkaline Phosphatase 96 U/L (38-126); Amylase 59 U/L (30-110); Anion Gap 4 mmol/L; Blood Urea Nitrogen 15 mg/dL (9-20); Carbon Dioxide 28 mmol/L (22-30); Chloride 103 mmol/L (98-107); Glucose 93 mg/dL (74-99); Lipase 46 U/L (23-300); Non-African American GFR(CKD) >90 (>60 ml/min/1.73 sqM); Potassium 4.5 mmol/L (3.5-5.1); Sodium 135 mmol/L (137-145); Total Bilirubin 0.3 mg/dL (0.2-1.3); Total Protein 6.4 g/dL (6.3-8.2)
--- NOTE | 2022-05-25 23:12 | CT ---
EXAMINATION TYPE: CT abdomen pelvis wo con DATE OF EXAM: 05/25/2022 COMPARISON: 11/23/2015 HISTORY: Left side testicular pain after moving wood a few days ago. No blood in urine noted. CT DLP: 861.3 mGycm Automated exposure control for dose reduction was used. Images obtained from the diaphragm to the floor the pelvis with no contrast. Lung bases are clear of consolidation. No pleural effusion. Heart size is normal. No pericardial effu luciano. There is minimal interstitial density left posterior lung base. Liver has normal size and contour. There is 2 cm cyst in the anterior right lobe of the liver. The bi le ducts are not dilated. Spleen is intact. No pancreatic mass. The stomach is intact. Gallbladder ap pears normal. There is no adrenal mass. Kidneys of normal size and contour. No hydronephrosis. Ureters are not dila everton. No retroperitoneal adenopathy. Latter distends smoothly. No inguinal hernia. No pelvic mass. No free fluid in the pelvis. There are clips apparently from appendectomy. Appendix not seen. There is r ight hip prosthesis. Bony pelvis is intact. Lumbar vertebrae have normal alignment. No compression fr acture. There is mild spurring at L5-S1. There is no mesenteric edema. There is no ascites or free air. No sign of a bowel obstruction. IMPRESSION: No acute abnormality in the abdomen and pelvis. No renal stone or obstruction. No adverse change.
[2022-05-26] MEDS ORDERED: HYDROmorphone 1 MG/ML 1 ML SYRINGE IVP STA (00:07)
== END 2022-05-26 01:00 | disposition home or self-care (01) ==
LOC: EC 19:43
DX: R10.32 Left lower quadrant pain (principal); R10.31 Right lower quadrant pain; F17.200 Nicotine dependence, unspecified, uncomplicated; Z90.89 Acquired absence of other organs; J44.9 Chronic obstructive pulmonary disease, unspecified; I50.9 Heart failure, unspecified; Z88.8 Allergy status to other drugs, medicaments and biological substances; Z79.899 Other long term (current) drug therapy; Z79.51 Long term (current) use of inhaled steroids
CPT/HCPCS: 36415; 80053; 82150; 83690; 85025; 93975; 76870; 74176; 99284; 96374; 96375 ×2; 96361; J2270; J2405; J1170; J1885

== ENCOUNTER 2022-07-08 19:06 | Emergency (ER) | payer MEDICARE ==
[2022-07-08 19:56] VITALS: RESP 16; TEMP 97.9
--- NOTE | 2022-07-08 20:26 | ED ---
General Adult HPI - General Source: patient Mode of arrival: ambulatory Limitations: no limitations <Karuna Leung - Last Filed: 07/08/22 20:22> <Jonathan Bautista - Last Filed: 07/09/22 02:28> - General Chief complaint: Urogenital Stated complaint: male pain - History of Present Illness Initial comments: 56 year old male presents to the emergency department with chief complaint of L groin pain. He denies any trauma or injury. He was seen a month ago for the same. (Karuna Leugn) This is a 56-year-old male who presents emergency department for left groin and testicular pain. The patient stated that he was seen one month ago for the same issue and had a workup that was negative. The patient was sent home and attempted to follow-up with urology however stated that he needed a referral and he was unable to go was prepped [facility] care physician's office to get one. The patient stated that he recurrence of this pain in the left testicle that started several days ago but got acutely worse today. The patient describes the pain as starting in the left testicle and radiating up the left side of his abdomen. The patient denied any trauma denied any swelling. The patient denied any other acute pain or complaints and did state that he was the same pain as the previous month. The patient was resting in bed comfortably and denied any other acute pain or complaints at this time. (Jonathan Bautista) - Related Data Home Medications Medication Instructions Recorded Confirmed Baclofen [Lioresal] 20 mg PO BID 12/21/15 04/06/22 HYDROcodone/APAP 7.5-325MG [Enola 1 tab PO BID 04/17/20 04/06/22 7.5-325] Pantoprazole Sodium [Protonix] 40 mg PO DAILY 04/17/20 04/06/22 QUEtiapine [SEROquel] 50 mg PO HS 09/14/21 04/06/22 SUMAtriptan succinate [Imitrex] 50 mg PO BID PRN 09/14/21 04/06/22 rOPINIRole HCL [Requip] 1 mg PO HS 09/17/21 04/06/22 DULoxetine HCL [Cymbalta] 20 mg PO HS 12/22/21 04/06/22 Albuterol Inhaler [Ventolin Hfa 2 puff INHALATION RT-QID PRN 01/03/22 04/06/22 Inhaler] Fluticasone Propion/Salmeterol 2 puff INHALATION RT-BID 01/12/22 04/06/22 [Advair Hfa 230-21 Mcg Inhaler] Mirtazapine [Remeron] 15 mg PO HS 01/12/22 04/06/22 Morphine Sulfate ER [Ms Contin] 30 mg PO Q12H 03/06/22 04/06/22 Cyanocobalamin (Vitamin B-12) 2,000 mcg PO DAILY 04/06/22 04/06/22 [Vitamin B-12] Ferrous Sulfate [Iron (65 MG 325 mg PO DAILY 04/06/22 04/06/22 Elemental)] Folic Acid 1.5 mg PO DAILY 04/06/22 04/06/22 Pyridoxine HCl (Vitamin B6) 25 mg PO DAILY 04/06/22 04/06/22 [Pyridoxine HCl] Ubidecarenone [Coenzyme Q10] 200 mg PO DAILY 04/06/22 04/06/22 carvediloL [Coreg] 6.25 mg PO BID 04/06/22 04/06/22 tadalafiL 20 mg PO DAILY PRN 04/06/22 04/06/22 Previous Rx's Medication Instructions Recorded Furosemide [Lasix] 20 mg PO BID@0900,1600 #60 tab 12/26/21 Spironolactone [Aldactone] 25 mg PO DAILY #30 tab 12/26/21 Ipratropium-Albuterol Nebulize 3 ml INHALATION RT-Q2H PRN each 01/06/22 [Duoneb 0.5 mg-3 mg/3 ml Soln] Ipratropium-Albuterol Nebulize 3 ml INHALATION RT-QID 30 Days #60 01/06/22 [Duoneb 0.5 mg-3 mg/3 ml Soln] each Aspirin 81 mg PO DAILY #90 tab 01/13/22 Ascorbic Acid [Vitamin C] 1,000 mg PO DAILY tab 03/08/22 Cholecalciferol [Vitamin D3 (25 50 mcg PO DAILY tab 03/08/22 Mcg = 1000 Iu)] Zinc Sulfate [Orazinc] 220 mg PO DAILY #30 cap 03/08/22 Allergies Allergy/AdvReac Type Severity Reaction Status Date / Time lisinopril Allergy Swelling Verified 07/08/22 19:52 of the mouth Review of Systems ROS Other: All systems not noted in ROS Statement are negative. <Karuna Leung - Last Filed: 07/08/22 20:22> ROS Other: All systems not noted in ROS Statement are negative. <Jonathan Bautista - Last Filed: 07/09/22 02:28> ROS Statement: Those systems with pertinent positive or pertinent negative responses have been documented in the HPI. Past Medical History Past Medical History: Chest Pain / Angina, Heart Failure, COPD, Eye Disorder, Musculoskeletal Disorder, Neurologic Disorder Additional Past Medical History / Comment(s): Multiple sclerosis USES A CANE/ walker TO AMBULATE, falls. has had in past occasional DOUBLE VISION. CHRONIC BACK NECK PAIN. HAD SPINAL STIMULATOR, THEN REMOVED; Migraine headache. Crohn's disease.lt ear [place] History of Any Multi-Drug Resistant Organisms: MRSA Date of last positivie culture/infection: 2014 MDRO Source:: lower back Past Surgical History: Appendectomy, Back Surgery, Bowel Resection, Hernia Repair Additional Past Surgical History / Comment(s): CERVICAL FUSION. SPINAL STIMULATOR implantation, revision and removal. FOREIGN BODY REMOVED RT CHEST WALL. 10/18/2015 wire removed from back. (from stimulator) Past Anesthesia/Blood Transfusion Reactions: Previous Problems w/ Anesthesia Additional Past Anesthesia/Blood Transfusion Reaction / Comment(s): STATES TAKES A LONG TIME TO WAKE UP Past Psychological History: Anxiety, Depression Smoking Status: Current every day smoker Past Alcohol Use History: Occasional Past Drug Use History: Marijuana - Past Family History Father Family Medical History: Cancer, Diabetes Mellitus Additional Family Medical History / Comment(s): CABG-TRIPLE BYPASS, Mother Family Medical History: Cancer, CVA/TIA, Diabetes Mellitus Additional Family Medical History / Comment(s): Stroke Brother(s) Additional Family Medical History / Comment(s): cardiomyopathy <Karuna Leung - Last Filed: 07/08/22 20:22> General Exam Limitations: no limitations <Karuna Leung - Last Filed: 07/08/22 20:22> Limitations: no limitations General appearance: alert, in no apparent distress Head exam: Present: atraumatic, normocephalic, normal inspection Eye exam: Present: normal appearance, PERRL ENT exam: Present: normal exam, normal oropharynx, mucous membranes moist Neck exam: Present: normal inspection, full ROM Respiratory exam: Present: normal lung sounds bilaterally Cardiovascular Exam: Present: regular rate, normal rhythm, normal heart sounds GI/Abdominal exam: Present: soft, normal bowel sounds exam: Present: normal inspection, other (Chemical Educator was present and the patient had a normal external genital exam). Absent: testicular tenderness, urethral discharge, scrotal swelling External exam: Present: normal external exam Extremities exam: Present: normal inspection, full ROM Back exam: Present: normal inspection, full ROM Neurological exam: Present: alert, oriented X3, CN II-XII intact Psychiatric exam: Present: normal affect, normal mood Skin exam: Present: warm, dry <Jonathan Bautista - Last Filed: 07/09/22 02:28> Course Vital Signs 07/08/22 19:52 Temperature 97.9 F Pulse Rate 99 Respiratory 16 Rate Blood Pressure 120/75 O2 Sat by Pulse 96 Oximetry Medical Decision Making <Jonathan Bautista - Last Filed: 07/09/22 02:28> - Medical Decision Making Was pt. sent in by a medical professional or institution (, PA, [employer], urgent care, hospital, or group home...) When possible be specific @ -No Did you speak to anyone other than the patient for history (EMS, parent, family, police, friend...)? What history was obtained from this source @ -No Did you review nursing and triage notes (agree or disagree)? Why? @ -I reviewed and agree with nursing and triage notes Were old charts reviewed (outside hosp., previous admission, EMS record, old EKG, old radiological studies, urgent care reports/EKG's, group home records)? Report findings @ -No old charts were reviewed Differential Diagnosis (chest pain, altered mental status, abdominal pain women, abdominal pain men, vaginal bleeding, weakness, fever, dyspnea, syncope, headac he, dizziness, GI bleed, back pain, seizure, CVA, palpatations, mental health)? @ -Epididymitis, testicular torsion, left inguinal hernia EKG interpreted by me (3pts min.). @ -None X-rays interpreted by me (1pt min.). @ -None done CT interpreted by me (1pt min.). @ -None done U/S interpreted by me (1pt. min.). @ -Scrotal ultrasound was obtained and was interpreted by myself. Ultrasound showed numerous bilateral epididymal cysts. There is normal testicular parenchymal mass. No free fluid. What testing was considered but not performed or refused? (CT, X-rays, U/S, labs)? Why? @ -None What meds were considered but not given or refused? Why? @ -None Did you discuss the management of the patient with other professionals (prof cavanaugh i.e. , PA, [employer], lab, RT, psych nurse, social sciences chair, patient account liaison, teacher, training officer, wrapper caser)? Give summary @ -No Was smoking cessation discussed for >3mins.? @ -No Was critical care preformed (if so, how long)? @ -No Were there social determinants of health that impacted care today? How? (Homelessness, low income, unemployed, alcoholism, drug addiction, transportation, low edu. Level, literacy, decrease access to med. care, prison, rehab)? @ -No Was there de-escalation of care discussed even if they declined (Discuss DNR or withdrawal of care, Hospice)? DNR status @ -No What co-morbidities impacted this encounter? (DM, HTN, Smoking, COPD, CAD, Cancer, CVA, ARF, Chemo, Hep., AIDS, mental health diagnosis, sleep apnea, morbid obesity)? @ -Multiple sclerosis Was patient admitted / discharged? Hospital course, mention meds given and route, prescriptions, significant lab abnormalities, going to OR and other pertinent info. @ -The patient was seen and evaluated emergency department. Physical exam, the patient was resting in bed without any acute distress. Vital signs were stable. Due to the patient's complaints, a testicular ultrasound was obtained and was within normal limits. The patient did not have any epididymitis or testicular torsion. The patient to good blood flow noted and did not have a urinary tract infection. The patient's pain had an unknown etiology at this time. The patient was given a referral for urology from the emergency department he was counseled to follow-up with urology for further workup and evaluation. The patient was also given a dose of Toradol in the emergency department and had moderate improvement of his pain on reevaluation. The patient did understand these instructions and all discretions were answered appropriately. The patient was discharged home in stable condition. Undiagnosed new problem with uncertain prognosis? @ -No Drug Therapy requiring intensive monitoring for toxicity (Heparin, Nitro, Insulin, Cardizem)? @ -No Were any procedures done? @ -No Diagnosis/symptom? @ -Left testicular pain, NOS Acute, or Chronic, or Acute on Chronic? @ -Acute on chronic Uncomplicated (without systemic symptoms) or Complicated (systemic symptoms)? @ -Uncomplicated Side effects of treatment? @ -No Exacerbation, Progression, or Severe Exacerbation? @ -No Poses a threat to life or bodily function? How? (Chest pain, [place], [place], pneumonia, PE, COPD, DKA, ARF, appy, cholecystitis, CVA, Diverticulitis, Homicidal, Suicidal, threat to staff... and all critical care pts) @ -No (Jonathan Bautista) - Lab Data Lab Results 07/08/22 Range/Units 22:14 Urine Color Yellow Urine Appearance Clear (Clear) Urine pH 5.5 (5.0-8.0) Ur Specific [place] 1.012 (1.001-1.035) Urine Protein Negative (Negative) Urine Glucose (UA) Negative (Negative) Urine Ketones Negative (Negative) Urine Blood Trace H (Negative) Urine Nitrite Negative (Negative) Urine Bilirubin Negative (Negative) Urine Urobilinogen 2.0 (<2.0) mg/dL Ur Leukocyte Esterase Negative (Negative) Urine RBC 2 (0-5) /hpf Disposition <Karuna Leung - Last Filed: 07/08/22 20:22> Is patient prescribed a controlled substance at d/c from ED?: No Time of Disposition: 23:45 <Jonathan Bautista - Last Filed: 07/09/22 02:28> Clinical Impression: Testicular pain, left Disposition: HOME SELF-CARE Condition: Stable Instructions (If sedation given, give patient instructions): Testicle Pain (ED) Referrals: Mack Fox DO [Primary Care Provider] - 1-2 days Alejandro Swan MD [STAFF PHYSICIAN] - 1-2 days
[2022-07-08 22:35] LABS: Appearance,Urine Clear (Clear); Bilirubin,Urine Negative (Negative); Blood,Urine Trace (Negative); Color,Urine Yellow; Glucose,Urine (UA) Negative (Negative); Ketones,Urine Negative (Negative); Leukocyte Esterase,Urine Negative (Negative); Nitrite,Urine Negative (Negative); PH, Urine 5.5 (5.0-8.0); Protein,Urine Negative (Negative); RBC,Urine 2 /hpf (0-5); Specific Gravity,Urine 1.012 (1.001-1.035)
--- NOTE | 2022-07-08 22:52 | US ---
EXAMINATION TYPE: US scrotum with doppler. Grayscale and color Doppler Duplex imaging performed of [facility] scrotum. DATE OF EXAM: 07/08/2022 COMPARISON: 05/25/2022 CLINICAL HISTORY: Left tesicular pain. EXAM MEASUREMENTS: TESTICLES: Right Testicle: 3.5 x 2.0 x 2.5 cm Left Testicle: 4.1 x 2.0 x 2.4 cm EPIDIDYMIS HEAD: Right Epididymis: 0.91 cm Left Epididymis: 0.71 cm Doppler performed to assess for testicular vascularity; good bilateral color flow and waveforms are s een. There is no evidence of testicular torsion. Presence of hydroceles: No Presence of varicoceles: No Mulitiple cysts noted in the epididymis area bilaterally. Largest measured: Right 2.0 x 2.2 x 2.3cm Left 1.5 x 1.2 x 1.4cm Several cysts noted in the right testicle. Largest measured: 0.49 x 0.41 x 0.86cm IMPRESSION: Numerous bilateral epididymal cysts. Normal testicular parenchymal mass. No free fluid.
[2022-07-08] MEDS ORDERED: KETOROLAC 15 MG/ML 1 ML VIAL IM STA (22:57)
[2022-07-09 02:29] VITALS: BP 128/78; PULSE 90
== END 2022-07-09 00:30 | disposition home or self-care (01) ==
LOC: EC 19:06
DX: N50.812 Left testicular pain (principal); J44.9 Chronic obstructive pulmonary disease, unspecified; I50.9 Heart failure, unspecified; F41.9 Anxiety disorder, unspecified; F32.A Depression, unspecified; F17.200 Nicotine dependence, unspecified, uncomplicated; F12.90 Cannabis use, unspecified, uncomplicated; Z88.8 Allergy status to other drugs, medicaments and biological substances; Z79.899 Other long term (current) drug therapy
CPT/HCPCS: 76870; 81001; 93975; 96372; 99284

== ENCOUNTER 2022-10-23 14:21 | Inpatient (IN) | payer MEDICARE ==
[2022-10-23] MEDS ORDERED: KETOROLAC 15 MG/ML 1 ML VIAL IVP STA (16:46)
[2022-10-23] MEDS ORDERED: SODIUM CHLORIDE 0.9% 1,000 ML IV ONE (16:46)
[2022-10-23] MEDS ORDERED: ONDANSETRON 4 MG/2 ML VIAL IVP STA (16:46)
[2022-10-23 17:21] LABS: Basophils % (A) 0 %; Eosinophils # (A) 0.2 k/uL (0-0.7); Eosinophils % (A) 1 %; HCT 46.1 % (39.0-53.0); HGB 14.8 gm/dL (13.0-17.5); Lymphocytes # (A) 2.6 k/uL (1.0-4.8); Lymphocytes % (A) 13 %; MCH 31.5 pg (25.0-35.0); MCHC 32.1 g/dL (31.0-37.0); MCV 98.3 fL (80.0-100.0); Mean Platelet Volume 7.7; Monocytes # (A) 1.5 k/uL (0-1.0); Monocytes % (A) 7 %; Neutrophils # (A) 16.4 k/uL (1.3-7.7); Neutrophils % (A) 78 %; Platelet Count 370 k/uL (150-450); RBC 4.69 m/uL (4.30-5.90); RDW 12.5 % (11.5-15.5)
[2022-10-23] MEDS ORDERED: MORPHINE SULFATE 4 MG/ML SYRINGE IVP STA (17:48)
[2022-10-23 17:50] LABS: ALT 17 U/L (4-49); AST 18 U/L (17-59); African American GFR (CKD) >90 (>60 ml/min/1.73 sqM); Alkaline Phosphatase 97 U/L (38-126); Amylase 58 U/L (30-110); Anion Gap 5 mmol/L; Blood Urea Nitrogen 12 mg/dL (9-20); Calcium 9.7 mg/dL (8.4-10.2); Carbon Dioxide 29 mmol/L (22-30); Chloride 99 mmol/L (98-107); Glucose 100 mg/dL (74-99); Non-African American GFR(CKD) >90 (>60 ml/min/1.73 sqM); Sodium 133 mmol/L (137-145); Total Bilirubin 0.6 mg/dL (0.2-1.3); Total Protein 6.6 g/dL (6.3-8.2)
[2022-10-23 17:56] LABS: Appearance,Urine Clear (Clear); Bilirubin,Urine Negative (Negative); Blood,Urine Negative (Negative); Color,Urine Yellow; Glucose,Urine (UA) Negative (Negative); Ketones,Urine Negative (Negative); Leukocyte Esterase,Urine Negative (Negative); Nitrite,Urine Negative (Negative); PH, Urine 6.5 (5.0-8.0); Protein,Urine Negative (Negative); Specific Gravity,Urine 1.014 (1.001-1.035); Urobilinogen,Urine <2.0 mg/dL (<2.0)
--- NOTE | 2022-10-23 18:02 | US ---
EXAMINATION TYPE: US scrotum with doppler. Grayscale and color Doppler Duplex imaging performed of [facility] scrotum. DATE OF EXAM: 10/23/2022 COMPARISON: 07/08/22 CLINICAL INDICATION: Male, 57 years old with history of scrotal pain; Lower abd pain and right testic le pain x 3 days EXAM MEASUREMENTS: TESTICLES: Right Testicle: 3.9 x 3.4 x 2.0 cm Left Testicle: 4.2 x 2.3 x 1.8 cm EPIDIDYMIS HEAD: Right Epididymis: 2.9 cm Left Epididymis: 2.3 cm Doppler performed to assess for testicular vascularity; good bilateral color flow and waveforms are s een. Presence of hydroceles: No Presence of varicoceles: No Multiple large epi head cysts bilaterally, largest measuring 3.1 x 2.9 x 2.4 on the right side. Cysts seen in the right testicle. Satisfactory blood flow to both testicles redemonstrated. Multiple thin-walled cysts in the bilateral epididymides are again seen. Comparison view shows symmetric blood flow to both testicles that on study. IMPRESSION: No asymmetric increased or decreased blood flow to right testicle. Epididymal cysts of va rying size and shape bilaterally are redemonstrated. Some thin-walled cysts in the right testicle are redemonstrated. No significant change from prior ultrasound.
--- NOTE | 2022-10-23 20:37 | CT ---
EXAMINATION TYPE: CT abdomen pelvis wo con DATE OF EXAM: 10/23/2022 HISTORY: ABDOMINAL PAIN. Epigastric pain into right groin for 3 days with nausea and vomiting CT DLP: 770.9 mGycm. Automated Exposure Control for Dose Reduction was Utilized. TECHNIQUE: CT scan of the abdomen and pelvis is performed without oral or IV contrast. COMPARISON: Prior CT May 25, 2022 FINDINGS: Within the limitations of a non-contrast study, the following observations are made. LUNG BASES: There is new dependent density could reflect atelectasis and/or mild edema. LIVER/GB: Gallbladder has distended margins. No surrounding fluid or fat stranding. No biliary dilata tion. There are a few round subcentimeter low dense lesions throughout the liver redemonstrated and a larger 1.8 cm simple appearing thin-walled cyst right hepatic dome anteriorly on axial image 18 PANCREAS: No significant abnormality is seen. SPLEEN: No significant abnormality is seen. ADRENALS: No significant abnormality is seen. KIDNEYS: No renal stones or hydronephrosis is present bilaterally. BOWEL: Surgical sutures in the cecum and proximal right colon are redemonstrated. A few slightly prom inent and mildly dilated fluid filled distal small bowel loops are seen particularly in the lower abd omen and pelvis measuring up to 3.1 cm axial image 121. There is nondistended terminal ileum. A few s cattered air-fluid levels in the lower abdomen and pelvis. Sigmoid colonic diverticulosis. A few jcarlos tional diverticula scattered throughout the left colon. No CT evidence for acute diverticulitis. No f ree air. GENITAL ORGANS: Prostate gland measures upper limits of normal in size. LYMPH NODES: No greater than 1cm abdominal or pelvic lymph nodes are appreciated. OSSEOUS STRUCTURES: Metallic hardware from right hip arthroplasty causes streak artifact limiting josi luation of pelvic structures . OTHER: No significant additional abnormality is seen. IMPRESSION: New prominent and minimally dilated distal fluid filled small bowel loops with air-fluid levels consistent with mild partial distal small bowel obstruction. Evidence of prior surgery. Underl prosper adhesions is suspected.
--- NOTE | 2022-10-23 20:59 | ED ---
General Adult HPI - General Chief complaint: Abdominal Pain Stated complaint: abd pain Time Seen by Provider: 10/23/22 16:23 Source: patient, RN notes reviewed Mode of arrival: ambulatory Limitations: no limitations - History of Present Illness Initial comments: 57-year-old male with past medical history significant for Crohn's presents to the emergency department for lower abdominal pain and nausea and vomiting that started 2 days ago. Patient reports that it has a constant sharp pain in his lower abdomen. He denies any fevers or chills, chest pain, shortness of breath, melena, hematochezia, hematemesis. His last colonoscopy was this year. He reports that his last bowel movement was this morning and was normal for him. - Related Data Home Medications Medication Instructions Recorded Confirmed Baclofen [Lioresal] 20 mg PO BID 12/21/15 10/23/22 HYDROcodone/APAP 7.5-325MG [[place] 1 tab PO BID 04/17/20 10/23/22 7.5-325] Pantoprazole Sodium [Protonix] 40 mg PO DAILY 04/17/20 10/23/22 QUEtiapine [SEROquel] 50 mg PO HS 09/14/21 10/23/22 SUMAtriptan succinate [Imitrex] 50 mg PO BID PRN 09/14/21 10/23/22 rOPINIRole HCL [Requip] 1 mg PO HS 09/17/21 10/23/22 Albuterol Inhaler [Ventolin Hfa 2 puff INHALATION RT-QID PRN 01/03/22 10/23/22 Inhaler] Morphine Sulfate ER [Ms Contin] 30 mg PO Q12H 03/06/22 10/23/22 Cyanocobalamin (Vitamin B-12) 2,000 mcg PO DAILY 04/06/22 10/23/22 [Vitamin B-12] Ferrous Sulfate [Iron (65 MG 325 mg PO DAILY 04/06/22 10/23/22 Elemental)] Pyridoxine HCl (Vitamin B6) 25 mg PO DAILY 04/06/22 10/23/22 [Pyridoxine HCl] Ubidecarenone [Coenzyme Q10] 200 mg PO DAILY 04/06/22 10/23/22 carvediloL [Coreg] 6.25 mg PO BID 04/06/22 10/23/22 tadalafiL 20 mg PO DAILY PRN 04/06/22 10/23/22 DULoxetine HCL [Cymbalta] 30 mg PO DAILY 08/17/22 10/23/22 Folic Acid 1.6 mg PO DAILY 08/17/22 10/23/22 Furosemide [Lasix] 20 mg PO BID 08/17/22 10/23/22 Ipratropium-Albuterol Nebulize 3 ml INHALATION RT-QID PRN 08/17/22 10/23/22 [Duoneb 0.5 mg-3 mg/3 ml Soln] Losartan [Cozaar] 25 mg PO DAILY 08/17/22 10/23/22 Mirtazapine [Remeron] 30 mg PO HS 08/17/22 10/23/22 Tiotropium 2.5 Mcg/Puff [Spiriva 2 puff INHALATION RT-DAILY 08/17/22 10/23/22 Respimat 2.5 Mcg] methylPREDNISolone Dose Pack See Taper PO DIRECTED 10/23/22 10/23/22 [Medrol Dose Pack] Previous Rx's Medication Instructions Recorded Spironolactone [Aldactone] 25 mg PO DAILY #30 tab 12/26/21 Allergies Allergy/AdvReac Type Severity Reaction Status Date / Time lisinopril Allergy Swelling Verified 10/23/22 17:39 of the mouth Review of Systems ROS Statement: Those systems with pertinent positive or pertinent negative responses have been documented in the HPI. ROS Other: All systems not noted in ROS Statement are negative. Past Medical History Past Medical History: Chest Pain / Angina, Heart Failure, COPD, Eye Disorder, Musculoskeletal Disorder, Neurologic Disorder Additional Past Medical History / Comment(s): COVID 17 January-Jan 2022, Multiple sclerosis USES A CANE/ walker TO AMBULATE, falls. has had in past occasional DOUBLE VISION. CHRONIC BACK NECK PAIN. HAD SPINAL STIMULATOR, THEN REMOVED; Migraine headache. Crohn's disease.lt ear [place] History of Any Multi-Drug Resistant Organisms: MRSA Date of last positivie culture/infection: 2014 MDRO Source:: lower back Past Surgical History: Appendectomy, Back Surgery, Bowel Resection, Hernia Repair Additional Past Surgical History / Comment(s): CERVICAL FUSION. SPINAL STIMULATOR implantation, revision and removal. FOREIGN BODY REMOVED RT CHEST [place]. 10/18/2015 wire removed from back. (from stimulator) Past Anesthesia/Blood Transfusion Reactions: Previous Problems w/ Anesthesia Additional Past Anesthesia/Blood Transfusion Reaction / Comment(s): STATES TAKES A LONG TIME TO WAKE UP Past Psychological History: Anxiety, Depression Smoking Status: Current every day smoker Past Alcohol Use History: Occasional Past Drug Use History: Marijuana - Past Family History Father Family Medical History: Cancer, Diabetes Mellitus Additional Family Medical History / Comment(s): CABG-TRIPLE BYPASS, Mother Family Medical History: Cancer, CVA/TIA, Diabetes Mellitus Additional Family Medical History / Comment(s): Stroke Brother(s) Additional Family Medical History / Comment(s): cardiomyopathy General Exam Limitations: no limitations General appearance: alert, in no apparent distress Head exam: Present: atraumatic, normocephalic, normal inspection Eye exam: Present: normal appearance, PERRL, EOMI. Absent: scleral icterus, conjunctival injection, periorbital swelling ENT exam: Present: normal exam, mucous membranes moist Neck exam: Present: normal inspection. Absent: tenderness, meningismus, lymphadenopathy Respiratory exam: Present: normal lung sounds bilaterally. Absent: respiratory distress, wheezes, rales, rhonchi, stridor Cardiovascular Exam: Present: regular rate, normal rhythm, normal heart sounds. Absent: systolic murmur, diastolic murmur, rubs, gallop, clicks GI/Abdominal exam: Present: soft, tenderness (suprapubic ), normal bowel sounds. Absent: distended, guarding, rebound, rigid Extremities exam: Present: normal inspection, full ROM, normal capillary refill. Absent: tenderness, pedal edema, joint swelling, calf tenderness Back exam: Present: normal inspection Neurological exam: Present: alert, oriented X3, CN II-XII intact Psychiatric exam: Present: normal affect, normal mood Skin exam: Present: warm, dry, intact, normal color. Absent: rash Course Vital Signs 10/23/22 10/23/22 14:48 22:34 Temperature 97.7 F Pulse Rate 74 64 Respiratory 20 14 Rate Blood Pressure 122/78 119/73 O2 Sat by Pulse 96 99 Oximetry - Reevaluation(s) Reevaluation #1: 10/23/22 21:08 Case discussed with Kandace from [facility] who agrees and accepts the patient for admission Medical Decision Making - Medical Decision Making Was pt. sent in by a medical professional or institution (, PA, ASSOCIATE ACCOUNTANT, urgent care, hospital, or group home...) When possible be specific @ -[No] Did you speak to anyone other than the patient for history (EMS, parent, family, police, friend...)? What history was obtained from this source @ -[No] Did you review nursing and triage notes (agree or disagree)? Why? @ -[I reviewed and agree with nursing and triage notes] Were old charts reviewed (outside hosp., previous admission, EMS record, old EKG, old radiological studies, urgent care reports/EKG's, group home records)? Report findings @ -[No old charts were reviewed] Differential Diagnosis (chest pain, altered mental status, abdominal pain women, abdominal pain men, vaginal bleeding, weakness, fever, dyspnea, syncope, headache, dizziness, GI bleed, back pain, seizure, CVA, palpatations, mental health, musculoskeletal)? @ -[not applicable] EKG interpreted by me (3pts min.). @ -[As above] X-rays interpreted by me (1pt min.). @ -[None done] CT interpreted by me (1pt min.). @ -[None done] U/S interpreted by me (1pt. min.). @ -[None done] What testing was considered but not performed or refused? (CT, X-rays, U/S, labs)? Why? @ -[None] What meds were considered but not given or refused? Why? @ -[None] Did you discuss the management of the patient with other professionals (professionals i.e. , PA, ASSOCIATE ACCOUNTANT, lab, RT, psych nurse, social secretary, electrophysiologist, teacher, forest officer, case coordinator)? Give summary @ -[No] Was smoking cessation discussed for >3mins.? @ -[No] Was critical care preformed (if so, how long)? @ -[No] Were there social determinants of health that impacted care today? How? (Homelessness, low income, unemployed, alcoholism, drug addiction, transportation, low edu. Level, literacy, decrease access to med. care, long-term, rehab)? @ -[No] Was there de-escalation of care discussed even if they declined (Discuss DNR or withdrawal of care, Hospice)? DNR status @ -[No] What co-morbidities impacted this encounter? (DM, HTN, Smoking, COPD, CAD, Cancer, CVA, ARF, Chemo, Hep., AIDS, mental health diagnosis, sleep apnea, morbid obesity)? @ -[None] Was patient admitted / discharged? Hospital course, mention meds given and rout e, prescriptions, significant lab abnormalities, going to OR and other pertinent info. @ -[place]. This is a 57-year-old male with a history of Crohn's disease presents to the emergency department with a chief complaint of lower abdominal pain. Patient had a thorough history and physical exam performed while in the ED. Heart rate regular rate and rhythm lungs clear to auscultation bilaterally there is lower abdominal generalized tenderness however no bound guarding or rigidity. Bowel sounds are present in all 4 quadrants. Patient had lab work and imaging performed: Labs remarkable for WBCs 21.0, hemoglobin 14.8, BMP unremarkable be at BUN is 12, creatinine 0.[address] abdomen and pelvis reveals new problem and minimally dilated distal fluid filled small bowel loops with air-fluid levels consistent with a mild partial distal small bowel obstruction. Is evidence of prior surgeries and has underlying adhesions that I suspected Discussion of the scrotum reveals epididymal cysts of a size and shape bilaterally that were re-demonstrated from previous study I discussed the results with the patient verbalized understanding and all questions were addressed. He is agreeable with the plan for admission. Case discussed with urine from [facility] who agrees and accepts the patient for admission. Case discussed with Dr. Harris, [facility] who agrees with plan of care Undiagnosed new problem with uncertain prognosis? @ -[No] Drug Therapy requiring intensive monitoring for toxicity (Heparin, Nitro, Insulin, Cardizem)? @ -[No] Were any procedures done? @ -[No] Diagnosis/symptom? @ -small bowel obstruction Acute, or Chronic, or Acute on Chronic? @ -acute Uncomplicated (without systemic symptoms) or Complicated (systemic symptoms)? @ -compliicated Side effects of treatment? @ -[No] Exacerbation, Progression, or Severe Exacerbation? @ -[No] Poses a threat to life or bodily function? How? (Chest pain, [place], NH, pneumonia, PE, COPD, DKA, ARF, appy, cholecystitis, CVA, Diverticulitis, Homicidal, Suicidal, threat to staff... and all critical care pts) @ -low likelihood - Lab Data Result diagrams: 10/23/22 16:55 10/23/22 16:55 Lab Results 10/23/22 10/23/22 10/23/22 Range/Units 16:55 16:55 16:55 WBC 21.0 H (3.8-10.6) k/uL RBC 4.69 (4.30-5.90) m/uL Hgb 14.8 (13.0-17.5) gm/dL Hct 46.1 (39.0-53.0) % MCV 98.3 (80.0-100.0) fL MCH 31.5 (25.0-35.0) pg MCHC 32.1 (31.0-37.0) g/dL RDW 12.5 (11.5-15.5) % Plt Count 370 (150-450) k/uL MPV 7.7 Neutrophils % 78 % Lymphocytes % 13 % Monocytes % 7 % Eosinophils % 1 % Basophils % 0 % Neutrophils # 16.4 H (1.3-7.7) k/uL Lymphocytes # 2.6 (1.0-4.8) k/uL Monocytes # 1.5 H (0-1.0) k/uL Eosinophils # 0.2 (0-0.7) k/uL Basophils # 0.0 (0-0.2) k/uL Sodium 133 L (137-145) mmol/L Potassium 4.0 (3.5-5.1) mmol/L Chloride 99 (98-107) mmol/L Carbon Dioxide 29 (22-30) mmol/L Anion Gap 5 mmol/L BUN 12 (9-20) mg/dL Creatinine 0.56 L (0.66-1.25) mg/dL Est GFR (CKD-EPI)AfAm >90 (>60 ml/min/1.73 sqM) Est GFR (CKD-EPI)NonAf >90 (>60 ml/min/1.73 sqM) Glucose 100 H (74-99) mg/dL Plasma Lactic Acid [place]ong 1.7 (0.7-2.0) mmol/L Calcium 9.7 (8.4-10.2) mg/dL Total Bilirubin 0.6 (0.2-1.3) mg/dL AST 18 (17-59) U/L ALT 17 (4-49) U/L Alkaline Phosphatase 97 (38-126) U/L Total Protein 6.6 (6.3-8.2) g/dL Albumin 4.0 (3.5-5.0) g/dL Amylase 58 (30-110) U/L Urine Color Urine Appearance (Clear) Urine pH (5.0-8.0) Ur Specific [place] (1.001-1.035) Urine Protein (Negative) Urine Glucose (UA) (Negative) Urine Ketones (Negative) Urine Blood (Negative) Urine Nitrite (Negative) Urine Bilirubin (Negative) Urine Urobilinogen (<2.0) mg/dL Ur Leukocyte Esterase (Negative) 10/23/22 Range/Units 17:10 WBC (3.8-10.6) k/uL RBC (4.30-5.90) m/uL Hgb (13.0-17.5) gm/dL Hct (39.0-53.0) % MCV (80.0-100.0) fL MCH (25.0-35.0) pg MCHC (31.0-37.0) g/dL RDW (11.5-15.5) % Plt Count (150-450) k/uL MPV Neutrophils % % Lymphocytes % % Monocytes % % Eosinophils % % Basophils % % Neutrophils # (1.3-7.7) k/uL Lymphocytes # (1.0-4.8) k/uL Monocytes # (0-1.0) k/uL Eosinophils # (0-0.7) k/uL Basophils # (0-0.2) k/uL Sodium (137-145) mmol/L Potassium (3.5-5.1) mmol/L Chloride (98-107) mmol/L Carbon Dioxide (22-30) mmol/L Anion Gap mmol/L BUN (9-20) mg/dL Creatinine (0.66-1.25) mg/dL Est GFR (CKD-EPI)AfAm (>60 ml/min/1.73 sqM) Est GFR (CKD-EPI)NonAf (>60 ml/min/1.73 sqM) Glucose (74-99) mg/dL Plasma Lactic Acid [place] (0.7-2.0) mmol/L Calcium (8.4-10.2) mg/dL Total Bilirubin (0.2-1.3) mg/dL AST (17-59) U/L ALT (4-49) U/L Alkaline Phosphatase (38-126) U/L Total Protein (6.3-8.2) g/dL Albumin (3.5-5.0) g/dL Amylase (30-110) U/L Urine Color Yellow Urine Appearance Clear (Clear) Urine pH 6.5 (5.0-8.0) Ur Specific [place] 1.014 (1.001-1.035) Urine Protein Negative (Negative) Urine Glucose (UA) Negative (Negative) Urine Ketones Negative (Negative) Urine Blood Negative (Negative) Urine Nitrite Negative (Negative) Urine Bilirubin Negative (Negative) Urine Urobilinogen <2.0 (<2.0) mg/dL Ur Leukocyte Esterase Negative (Negative) Disposition Clinical Impression: H/O Crohn's disease, Nausea and vomiting, Small bowel obstruction Disposition: ADMITTED IP TO THIS [facility] Condition: Fair Is patient prescribed a controlled substance at d/c from ED?: No Referrals: Mack Fox DO [Primary Care Provider] - 1-2 days Time of Disposition: 20:58
[2022-10-23] MEDS ORDERED: NALOXONE 0.4 MG/ML 1 ML VIAL IV PRN (21:09)
[2022-10-23] MEDS: SODIUM CHLORIDE 0.9% 1,000 ML IV SCH (22:28)
[2022-10-23] MEDS: MORPHINE SULFATE 4 MG/ML SYRINGE IV PRN (22:38)
[2022-10-24 07:58] LABS: Basophils % (A) 0 %; Eosinophils # (A) 0.1 k/uL (0-0.7); Eosinophils % (A) 1 %; Lymphocytes # (A) 2.2 k/uL (1.0-4.8); Lymphocytes % (A) 21 %; MCH 31.5 pg (25.0-35.0); MCHC 32.4 g/dL (31.0-37.0); MCV 97.1 fL (80.0-100.0); Mean Platelet Volume 7.5; Monocytes # (A) 0.8 k/uL (0-1.0); Monocytes % (A) 8 %; Neutrophils # (A) 7.1 k/uL (1.3-7.7); Neutrophils % (A) 68 %; Platelet Count 287 k/uL (150-450); RBC 4.43 m/uL (4.30-5.90); RDW 12.7 % (11.5-15.5); WBC 10.4 k/uL (3.8-10.6)
[2022-10-24 08:11] LABS: African American GFR (CKD) >90 (>60 ml/min/1.73 sqM); Anion Gap 4 mmol/L; Blood Urea Nitrogen 11 mg/dL (9-20); Calcium 8.7 mg/dL (8.4-10.2); Carbon Dioxide 29 mmol/L (22-30); Chloride 105 mmol/L (98-107); Glucose 82 mg/dL (74-99); Non-African American GFR(CKD) >90 (>60 ml/min/1.73 sqM); Sodium 138 mmol/L (137-145)
[2022-10-24] MEDS: MORPHINE SULFATE 4 MG/ML SYRINGE IV PRN ×3 (08:20→20:05)
[2022-10-24] MEDS ORDERED: IPRATROPIUM-ALBUTEROL 3 ML NEB INHALATION PRN (10:18)
[2022-10-24] MEDS ORDERED: ONDANSETRON 4 MG/2 ML VIAL IVP PRN (10:30)
[2022-10-24] MEDS: PANTOPRAZOLE 40 MG/10 ML VIAL IVP SCH (10:57)
[2022-10-24] MEDS: carvediloL 6.25 MG TAB PO SCH ×2 (10:57→17:59)
[2022-10-24] MEDS: SODIUM CHLORIDE 0.9% 1,000 ML IV SCH (10:58)
--- NOTE | 2022-10-24 11:35 | P.HPIM ---
History of Present Illness H&P Date: 10/24/22 Chief Complaint: Abdominal pain, nausea and vomiting This is a 57-year-old gentleman with past medical history of Crohn's-last exacerbation 10 years ago, anemia ,ongoing nicotine dependence, occasional marijuana ,multi-valvular disease, nonischemic cardiomyopathy, cardiac cat heterization 01/13/2022 reporting normal coronary arteries pneumonia, multiple sclerosis, chronic back/neck pain and multiple other medical issues, presented to the ER with with stomach pain over the last 3-4 days that continued to worsen with nausea and vomiting that began yesterday. Passing flatus, states last bowel movement yesterday. Abdomen/pelvis CT reported new prominent and minimally dilated distal fluid filled small bowel loops with air fluid levels consistent with mild partial distal small bowel obstruction, evidence of prior surgery, underlying adhesions suspected. Ultrasound scrotum with Doppler reported no asymmetric increased or decreased blood flow to right testicle, epididymal cyst ovarian size and shape bilaterally redemonstrated. Some thin- walled cyst in the right testicle redemonstrated, no significant change from prior ultrasound. Denies any chest pain, palpitations or shortness of breath. Afebrile, vital signs stable, maintaining O2 sats in the high 90s on room air. WBC 21 on admission currently decreased to 10.4, hemoglobin 14, platelets 287, renal function stable.IV fluids initiated. Review of Systems ROS Statement: Those systems with pertinent positive or pertinent negative responses have been documented in the HPI. ROS Other: All systems not noted in ROS Statement are negative. Past Medical History Past Medical History: Chest Pain / Angina, Heart Failure, COPD, Eye Disorder, Musculoskeletal Disorder, Neurologic Disorder Additional Past Medical History / Comment(s): COVID 17 January-Jan 2022, Multiple sclerosis USES A CANE/ walker TO AMBULATE, falls. has had in past occasional DOUBLE VISION. CHRONIC BACK NECK PAIN. HAD SPINAL STIMULATOR, THEN REMOVED; Migraine headache. Crohn's disease.lt ear [place] History of Any Multi-Drug Resistant Organisms: None Reported, MRSA Date of last positivie culture/infection: 2014 MDRO Source:: lower back Past Surgical History: Appendectomy, Back Surgery, Bowel Resection, Hernia Repair Additional Past Surgical History / Comment(s): CERVICAL FUSION. SPINAL STIMULATOR implantation, revision and removal. FOREIGN BODY REMOVED RT CHEST [place]. 10/18/2015 wire removed from back. (from stimulator) Past Anesthesia/Blood Transfusion Reactions: Previous Problems w/ Anesthesia Additional Past Anesthesia/Blood Transfusion Reaction / Comment(s): STATES TAKES A LONG TIME TO WAKE UP Past Psychological History: Anxiety, Depression Additional Psychological History / Comment(s): Pt resides with his spouse and 3 sons. He uses a walker. He drives. Smoking Status: Current every day smoker Past Alcohol Use History: Occasional Additional Past Alcohol Use History / Comment(s): Smoker Since Age 13, smoked 1ppd now down to 1/2 ppd. Past Drug Use History: Marijuana Additional Drug Use History / Comment(s): occasional marijuana smoker - Past Family History Father Family Medical History: Cancer, Diabetes Mellitus Additional Family Medical History / Comment(s): CABG-TRIPLE BYPASS, Mother Family Medical History: Cancer, CVA/TIA, Diabetes Mellitus Additional Family Medical History / Comment(s): Stroke Brother(s) Additional Family Medical History / Comment(s): cardiomyopathy Medications and Allergies Home Medications Medication Instructions Recorded Confirmed Type Baclofen [Lioresal] 20 mg PO BID 12/21/15 10/23/22 History HYDROcodone/APAP 7.5-325MG [[place] 1 tab PO BID 04/17/20 10/23/22 History 7.5-325] Pantoprazole Sodium [Protonix] 40 mg PO DAILY 04/17/20 10/23/22 History QUEtiapine [SEROquel] 50 mg PO HS 09/14/21 10/23/22 History SUMAtriptan succinate [Imitrex] 50 mg PO BID PRN 09/14/21 10/23/22 History rOPINIRole HCL [Requip] 1 mg PO HS 09/17/21 10/23/22 History Spironolactone [Aldactone] 25 mg PO DAILY #30 tab 12/26/21 10/23/22 Rx Albuterol Inhaler [Ventolin Hfa 2 puff INHALATION RT-QID PRN 01/03/22 10/23/22 History Inhaler] Morphine Sulfate ER [Ms Contin] 30 mg PO Q12H 03/06/22 10/23/22 History Cyanocobalamin (Vitamin B-12) 2,000 mcg PO DAILY 04/06/22 10/23/22 History [Vitamin B-12] Ferrous Sulfate [Iron (65 MG 325 mg PO DAILY 04/06/22 10/23/22 History Elemental)] Pyridoxine HCl (Vitamin B6) 25 mg PO DAILY 04/06/22 10/23/22 History [Pyridoxine HCl] Ubidecarenone [Coenzyme Q10] 200 mg PO DAILY 04/06/22 10/23/22 History carvediloL [Coreg] 6.25 mg PO BID 04/06/22 10/23/22 History tadalafiL 20 mg PO DAILY PRN 04/06/22 10/23/22 History DULoxetine HCL [Cymbalta] 30 mg PO DAILY 08/17/22 10/23/22 History Folic Acid 1.6 mg PO DAILY 08/17/22 10/23/22 History Furosemide [Lasix] 20 mg PO BID 08/17/22 10/23/22 History Ipratropium-Albuterol Nebulize 3 ml INHALATION RT-QID PRN 08/17/22 10/23/22 History [Duoneb 0.5 mg-3 mg/3 ml Soln] Losartan [Cozaar] 25 mg PO DAILY 08/17/22 10/23/22 History Mirtazapine [Remeron] 30 mg PO HS 08/17/22 10/23/22 History Tiotropium 2.5 Mcg/Puff [Spiriva 2 puff INHALATION RT-DAILY 08/17/22 10/23/22 History Respimat 2.5 Mcg] methylPREDNISolone Dose Pack See Taper PO DIRECTED 10/23/22 10/23/22 History [Medrol Dose Pack] Allergies Allergy/AdvReac Type Severity Reaction Status Date / Time lisinopril Allergy Swelling Verified 10/23/22 17:39 of the mouth Physical Exam Vitals: Vital Signs Temp Pulse Resp BP BP Pulse Ox 10/24/22 08:26 18 95/75 96 10/24/22 08:00 17 96/75 96 10/24/22 06:04 62 16 88/45 98 10/23/22 23:33 62 14 98 10/23/22 22:34 64 14 119/73 99 10/23/22 14:48 97.7 F 74 20 122/78 96 Intake and Output 10/23/22 10/24/22 10/24/22 22:59 06:59 14:59 Output Total 600 Balance -600 Output: Urine 600 Other: Weight 90.718 kg PHYSICAL EXAM: VITAL SIGNS: As above GENERAL: Sitting up in bed, no acute distress HEENT: Normocephalic, atraumatic Conjunctivae normal. eyes normal. NECK: Supple, No JVD. No thyroid enlargement. No LNs CARDIOVASCULAR: S1, S2 regular.systolic murmur, generalized chest tenderness to palpation-reproducible RESPIRATION: Breath sounds diminished in the bases. ABDOMEN: Soft, nondistended, diffuse tenderness. No guarding. no masses palpable. No ascites, No hepatosplenomegaly.Bowel sounds heard. LEGS: No edema. no swelling PSYCHIATRY: Alert and oriented X3, mood and affect normal. NERVOUS SYSTEM: Cranial N 2-12 grossly normal. No focal deficits. Strength and sensation grossly intact. Skin: Warm and dry, no rash Results CBC & Chem 7: 10/24/22 07:20 10/24/22 07:20 Labs: Abnormal Lab Results - Last 24 Hours (Table) 10/23/22 10/23/22 10/24/22 Range/Units 16:55 16:55 07:20 WBC 21.0 H (3.8-10.6) k/uL Neutrophils # 16.4 H (1.3-7.7) k/uL Monocytes # 1.5 H (0-1.0) k/uL Sodium 133 L (137-145) mmol/L Creatinine 0.56 L 0.64 L (0.66-1.25) mg/dL Glucose 100 H (74-99) mg/dL Thrombosis Risk Factor Assmnt - Choose All That Apply Any of the Below Risk Factors Present?: Yes Other Risk Factors: No Other congenital or acquired thrombophilia - If yes, enter type in comment: No Assessment and Plan Assessment: Abdominal pain with nausea and vomiting , CT reporting Partial distal small bowel obstruction History of Crohn's disease, last exacerbation approximately 10 years ago COPD History of Covid 19 infection in March 2022 History of migraines Chronic pain syndrome Moderate mitral regurgitation. History of nonischemic cardiomyopathy, ejection fraction 40-45% Normal coronary arteries per cardiac catheterization 01/13/2022 Plan: Continue on current medication regime ,monitoring and symptomatic treatment. IV fluid hydration,NPO-Bowel rest. General surgery consult in place, recommendations pending. The impression and plan of care has been dictated as directed. : I performed a history and examination of this patient, discussed the same with the dictator. I agree with the dictator's note ,documented as a scribe. Any additional findings or plans will be noted.
--- NOTE | 2022-10-24 12:45 | P.GSCN ---
History of Present Illness Consult date: 10/24/22 History of present illness: CHIEF COMPLAINT: Abdominal pain HISTORY OF PRESENT ILLNESS: This is a 57-year-old male with a known history of Crohn's disease. He has required a prior bowel resection 15 years ago due to his Crohn's. He has not had Crohn's exacerbation since and is not on any medication for Crohn's. Last colonoscopy was in October 2020 which had revealed c olon polyps. Patient reports 3 day history of lower abdominal pain with nausea and vomiting. One of the episodes of vomiting did have streaks of blood. Otherwise the emesis was retained food. Patient reports that he has been having soft bowel movements and flatus. Computed tomography scan had showed new prominent and minimally dilated distal fluid filled small bowel loops with air- fluid levels consistent with mild partial distal small bowel obstruction. Underlying adhesions is suspected. Other surgical history includes appendectomy and hernia repair. Patient seen and examined with Dr. navarro PAST MEDICAL HISTORY: COPD, MS, crohns, chronic back and neck pain PAST SURGICAL HISTORY: See below MEDICATIONS: See below ALLERGIES: See below SOCIAL HISTORY: No illicit drug use. REVIEW OF SYSTEMS: CONSTITUTIONAL: Denies fever or chills. HEENT: Denies blurred vision, vision changes, or eye pain. Denies hemoptysis CARDIOVASCULAR: Denies chest pain or pressure. RESPIRATORY: No shortness of breath. GASTROINTESTINAL: See HPI for pertinent findings HEMATOLOGIC: Denies bleeding disorders. GENITOURINARY: Denies any blood in urine or increased urinary frequency. SKIN: Denies pruitis. Denies rash. PHYSICAL EXAM: VITAL SIGNS: Reviewed GENERAL: Well-developed in no acute distress. HEENT: No sclera icterus. Extraocular movements grossly intact. Moist buccal mucosa. Head is atraumatic, normocephalic. No nasal drainage. ABDOMEN: Soft. Nondistended. Tenderness to palpation above the umbilicus and left lower quadrant and suprapubic area NEUROLOGIC: Alert and oriented. Cranial nerves II through XII grossly intact. LABORATORY DATA: WBC 21 down to 10.4 Hgb 14 platelets 287 Sodium 138 potassium 4.0 creatinine 0.64 Lactic acid 1.7 Urinalysis negative IMAGING: Computed tomography scan as stated above Ultrasound of scrotum no asymmetric increased or decreased blood flow to the right testicle. Epididymal cysts of varying size and shape bilaterally redemonstrated. Some thin-walled cysts in the right testicle redemonstrated. No significant change from prior ultrasound. ASSESSMENT: 1. Mild distal small bowel obstruction, resolving 2. History of Crohn's requiring bowel resection 3. History abdominal surgery PLAN: -Advance diet to full liquids -Continue conservative management -Continue IV fluids -Continue antiemetics -Continue supportive care Thank you for this consultation Physician Carpet Yarn Winder Operator note has been reviewed by physician. Signing provider agrees with the documented findings, assessment, and plan of care. Past Medical History Past Medical History: Chest Pain / Angina, Heart Failure, COPD, Eye Disorder, Musculoskeletal Disorder, Neurologic Disorder Additional Past Medical History / Comment(s): COVID 17 January-Jan 2022, Multiple sclerosis USES A CANE/ walker TO AMBULATE, falls. has had in past occasional DOUBLE VISION. CHRONIC BACK NECK PAIN. HAD SPINAL STIMULATOR, THEN REMOVED; Migraine headache. Crohn's disease.lt ear [place] History of Any Multi-Drug Resistant Organisms: None Reported, MRSA Year Discovered:: 2014 MDRO Source:: lower back Past Surgical History: Appendectomy, Back Surgery, Bowel Resection, Hernia Repair Additional Past Surgical History / Comment(s): CERVICAL FUSION. SPINAL STIMULATOR implantation, revision and removal. FOREIGN BODY REMOVED RT CHEST WALL. 10/18/2015 wire removed from back. (from stimulator) Past Anesthesia/Blood Transfusion Reactions: Previous Problems w/ Anesthesia Additional Past Anesthesia/Blood Transfusion Reaction / Comm: STATES TAKES A SUKUMAR G TIME TO WAKE UP Past Psychological History: Anxiety, Depression Additional Psychological History / Comment(s): Pt resides with his spouse and 3 sons. He uses a walker. He drives. Smoking Status: Current every day smoker Past Alcohol Use History: Occasional Additional Past Alcohol Use History / Comment(s): Smoker Since Age 13, smoked 1ppd now down to 1/2 ppd. Past Drug Use History: Marijuana Additional Drug Use History / Comment(s): occasional marijuana smoker - Past Family History Father Family Medical History: Cancer, Diabetes Mellitus Additional Family Medical History / Comment(s): CABG-TRIPLE BYPASS, Mother Family Medical History: Cancer, CVA/TIA, Diabetes Mellitus Additional Family Medical History / Comment(s): Stroke Brother(s) Additional Family Medical History / Comment(s): cardiomyopathy Medications and Allergies Home Medications Medication Instructions Recorded Confirmed Type Baclofen [Lioresal] 20 mg PO BID 12/21/15 10/23/22 History HYDROcodone/APAP 7.5-325MG [[place] 1 tab PO BID 04/17/20 10/23/22 History 7.5-325] Pantoprazole Sodium [Protonix] 40 mg PO DAILY 04/17/20 10/23/22 History QUEtiapine [SEROquel] 50 mg PO HS 09/14/21 10/23/22 History SUMAtriptan succinate [Imitrex] 50 mg PO BID PRN 09/14/21 10/23/22 History rOPINIRole HCL [Requip] 1 mg PO HS 09/17/21 10/23/22 History Spironolactone [Aldactone] 25 mg PO DAILY #30 tab 12/26/21 10/23/22 Rx Albuterol Inhaler [Ventolin Hfa 2 puff INHALATION RT-QID PRN 01/03/22 10/23/22 History Inhaler] Morphine Sulfate ER [Ms Contin] 30 mg PO Q12H 03/06/22 10/23/22 History Cyanocobalamin (Vitamin B-12) 2,000 mcg PO DAILY 04/06/22 10/23/22 History [Vitamin B-12] Ferrous Sulfate [Iron (65 MG 325 mg PO DAILY 04/06/22 10/23/22 History Elemental)] Pyridoxine HCl (Vitamin B6) 25 mg PO DAILY 04/06/22 10/23/22 History [Pyridoxine HCl] Ubidecarenone [Coenzyme Q10] 200 mg PO DAILY 04/06/22 10/23/22 History carvediloL [Coreg] 6.25 mg PO BID 04/06/22 10/23/22 History tadalafiL 20 mg PO DAILY PRN 04/06/22 10/23/22 History DULoxetine HCL [Cymbalta] 30 mg PO DAILY 08/17/22 10/23/22 History Folic Acid 1.6 mg PO DAILY 08/17/22 10/23/22 History Furosemide [Lasix] 20 mg PO BID 08/17/22 10/23/22 History Ipratropium-Albuterol Nebulize 3 ml INHALATION RT-QID PRN 08/17/22 10/23/22 History [Duoneb 0.5 mg-3 mg/3 ml Soln] Losartan [Cozaar] 25 mg PO DAILY 08/17/22 10/23/22 History Mirtazapine [Remeron] 30 mg PO HS 08/17/22 10/23/22 History Tiotropium 2.5 Mcg/Puff [Spiriva 2 puff INHALATION RT-DAILY 08/17/22 10/23/22 History Respimat 2.5 Mcg] methylPREDNISolone Dose Pack See Taper PO DIRECTED 10/23/22 10/23/22 History [Medrol Dose Pack] Allergies Allergy/AdvReac Type Severity Reaction Status Date / Time lisinopril Allergy Swelling Verified 10/23/22 17:39 of the mouth Surgical - Exam Vital Signs Temp Pulse Resp BP Pulse Ox 97.7 F 74 20 122/78 96 10/23/22 14:48 10/23/22 14:48 10/23/22 14:48 10/23/22 14:48 10/23/22 14:48 Results - Labs 10/24/22 07:20 10/24/22 07:20 Abnormal Lab Results - Last 24 Hours (Table) 10/23/22 10/23/22 10/24/22 Range/Units 16:55 16:55 07:20 WBC 21.0 H (3.8-10.6) k/uL Neutrophils # 16.4 H (1.3-7.7) k/uL Monocytes # 1.5 H (0-1.0) k/uL Sodium 133 L (137-145) mmol/L Creatinine 0.56 L 0.64 L (0.66-1.25) mg/dL Glucose 100 H (74-99) mg/dL Diabetes panel 10/23/22 10/24/22 Range/Units 16:55 07:20 Sodium 133 L 138 (137-145) mmol/L Potassium 4.0 4.0 (3.5-5.1) mmol/L Chloride 99 105 (98-107) mmol/L Carbon Dioxide 29 29 (22-30) mmol/L BUN 12 11 (9-20) mg/dL Creatinine 0.56 L 0.64 L (0.66-1.25) mg/dL Glucose 100 H 82 (74-99) mg/dL Calcium 9.7 8.7 (8.4-10.2) mg/dL AST 18 (17-59) U/L ALT 17 (4-49) U/L Alkaline Phosphatase 97 (38-126) U/L Total Protein 6.6 (6.3-8.2) g/dL Albumin 4.0 (3.5-5.0) g/dL Calcium panel 10/23/22 10/24/22 Range/Units 16:55 07:20 Calcium 9.7 8.7 (8.4-10.2) mg/dL Albumin 4.0 (3.5-5.0) g/dL Pituitary panel 10/23/22 10/24/22 Range/Units 16:55 07:20 Sodium 133 L 138 (137-145) mmol/L Potassium 4.0 4.0 (3.5-5.1) mmol/L Chloride 99 105 (98-107) mmol/L Carbon Dioxide 29 29 (22-30) mmol/L BUN 12 11 (9-20) mg/dL Creatinine 0.56 L 0.64 L (0.66-1.25) mg/dL Glucose 100 H 82 (74-99) mg/dL Calcium 9.7 8.7 (8.4-10.2) mg/dL Adrenal panel 10/23/22 10/24/22 Range/Units 16:55 07:20 Sodium 133 L 138 (137-145) mmol/L Potassium 4.0 4.0 (3.5-5.1) mmol/L Chloride 99 105 (98-107) mmol/L Carbon Dioxide 29 29 (22-30) mmol/L BUN 12 11 (9-20) mg/dL Creatinine 0.56 L 0.64 L (0.66-1.25) mg/dL Glucose 100 H 82 (74-99) mg/dL Calcium 9.7 8.7 (8.4-10.2) mg/dL Total Bilirubin 0.6 (0.2-1.3) mg/dL AST 18 (17-59) U/L ALT 17 (4-49) U/L Alkaline Phosphatase 97 (38-126) U/L Total Protein 6.6 (6.3-8.2) g/dL Albumin 4.0 (3.5-5.0) g/dL
[2022-10-24] MEDS ORDERED: QUEtiapine 50 MG TAB PO SCH (21:00)
[2022-10-24] MEDS ORDERED: MIRTAZAPINE 15 MG TAB PO SCH (21:00)
[2022-10-24] MEDS: MORPHINE SULFATE ER 30 MG TABLET PO SCH (21:09)
[2022-10-24] MEDS: BACLOFEN 10 MG TAB PO SCH (21:09)
[2022-10-24] MEDS: SPIRONOLACTONE 25 MG TAB PO SCH (21:10)
[2022-10-25] MEDS: HYDROcodone/APAP 7.5-325MG 1 EACH TAB PO PRN ×2 (00:16→08:32)
[2022-10-25] MEDS: SODIUM CHLORIDE 0.9% 1,000 ML IV SCH (00:17)
[2022-10-25] MEDS: carvediloL 6.25 MG TAB PO SCH (05:48)
[2022-10-25] MEDS: MORPHINE SULFATE 4 MG/ML SYRINGE IV PRN (05:53)
[2022-10-25 08:01] VITALS: BP 117/71; PULSE 64; RESP 18; TEMP 97.6
[2022-10-25] MEDS: BACLOFEN 10 MG TAB PO SCH (08:27)
[2022-10-25] MEDS: MORPHINE SULFATE ER 30 MG TABLET PO SCH (08:27)
[2022-10-25] MEDS: SPIRONOLACTONE 25 MG TAB PO SCH (08:27)
[2022-10-25] MEDS: PANTOPRAZOLE 40 MG/10 ML VIAL IVP SCH (08:28)
[2022-10-25] MEDS ORDERED: LOSARTAN 25 MG TAB PO SCH (09:00)
[2022-10-25] MEDS ORDERED: DULoxetine HCL 30 MG CAPSULE.DR PO SCH (09:00)
[2022-10-25] MEDS: IPRATROPIUM 0.5 MG/2.5 ML NEBU INHALATION SCH ×3 (09:21→12:59)
--- NOTE | 2022-10-25 11:19 | P.PN ---
Subjective Progress Note Date: 10/25/22 CHIEF COMPLAINT: Partial small bowel obstruction HISTORY OF PRESENT ILLNESS: Patient reports that he is feeling better. He reports abdominal pain is improving. He does report tenderness in the right lower abdomen today. He continues to have flatus. No further bowel movements his admission. Denies any nausea or vomiting. Tolerated well this morning. White count has normalized from 21-10. Patient is requesting more to eat. Afebrile. PHYSICAL EXAM: VITAL SIGNS: Reviewed. GENERAL: Well-developed in no acute distress. HEENT: No sclera icterus. Extraocular movements grossly intact. Moist buccal mucosa. Head is atraumatic, normocephalic. ABDOMEN: Soft. Nondistended. Tenderness with palpation to right lower quadrant NEUROLOGIC: Alert and oriented. Cranial nerves II through XII grossly intact. ASSESSMENT: 1. Partial small bowel obstruction improving 2. History of Crohn's requiring bowel resection 3. Prior abdominal surgeries PLAN: -Advance diet to regular and monitor -No surgical intervention planned -Continue conservative management Physician Sharepoint Designer Developer note has been reviewed by physician. Signing provider agrees with the documented findings, assessment, and plan of care. Objective - Vital Signs Vital signs: Vital Signs Temp 97.6 F 10/25/22 08:00 Pulse 64 10/25/22 08:00 Resp 18 10/25/22 08:00 BP 117/71 10/25/22 08:00 Pulse Ox 94 L 10/25/22 08:00 FiO2 Intake & Output 10/24/22 10/25/22 10/25/22 18:59 06:59 18:59 Intake Total 298 Output Total 1200 Balance -902 Weight 90.718 kg Intake: Oral 298 Output: Urine 1200 Other: Voiding Method Toilet Toilet Urinal Urinal # Voids 4 2 - Labs CBC & Chem 7: 10/24/22 07:20 10/24/22 07:20
--- NOTE | 2022-10-25 11:32 | P.DS ---
Providers Date of admission: 10/23/22 21:09 Expected date of discharge: 10/25/22 Attending physician: Mack Fox Consults: 10/23/22 21:09 Consult Physician Routine Consulting Provider: Peyman Mcdermott Consult Reason/Comments: SBO Do you want consulting provider notified?: Yes Primary care physician: Mack Fox [facility] Course: Final Diagnoses: Partial distal small bowel obstruction, improved History of Crohn's disease, last exacerbation approximately 10 years ago COPD History of Covid 19 infection in March 2022 History of migraines Chronic pain syndrome Moderate mitral regurgitation. History of nonischemic cardiomyopathy, ejection fraction 40-45% Normal coronary arteries per cardiac catheterization 01/13/2022 Hospital course:Chief Complaint: Abdominal pain, nausea and vomiting This is a 57-year-old gentleman with past medical history of Crohn's-last exacerbation 10 years ago, anemia ,ongoing nicotine dependence, occasional marijuana ,multi-valvular disease, nonischemic cardiomyopathy, cardiac catheterization 01/13/2022 reporting normal coronary arteries pneumonia, multiple sclerosis, chronic back/neck pain and multiple other medical issues, presented to the ER with with stomach pain over the last 3-4 days that continued to worsen with nausea and vomiting that began yesterday. Passing flatus, states last bowel movement yesterday. Abdomen/pelvis CT reported new prominent and minimally dilated distal fluid filled small bowel loops with air fluid levels consistent with mild partial distal small bowel obstruction, evidence of prior surgery, underlying adhesions suspected. Ultrasound scrotum with Doppler reported no asymmetric increased or decreased blood flow to right testicle, epididymal cyst ovarian size and shape bilaterally redemonstrated. Some thin- walled cyst in the right testicle redemonstrated, no significant change from prior ultrasound. Denies any chest pain, palpitations or shortness of breath. Afebrile, vital signs stable, maintaining O2 sats in the high 90s on room air. WBC 21 on admission currently decreased to 10.4, hemoglobin 14, platelets 287, renal function stable.IV fluids initiated. Maintained on IV fluid hydration, pain management. Tolerating full liquid diet. Denies nausea vomiting or diarrhea. Denies abdominal pain or tenderness. States hungry requesting advancement in diet. Diet advanced for lunch as per general surgery. Passing flatus, no bowel movement .Denies chest pain, palpitations or shortness of breath. Afebrile. Patient will be discharged home today in a stable condition with guarded prognosis, pending patient tolerates diet advancement, final DC recommendations and clearance per general surgery. The impression and plan of care has been dictated as directed. : I performed a history and examination of this patient, discussed the same with the dictator. I agree with the dictator's note ,documented as a scribe. Any additional findings or plans will be noted. Patient Condition at Discharge: Stable Plan - Discharge Summary Discharge Rx Participant: Yes New Discharge Prescriptions: New Sennosides-Docusate Sodium [Senokot-S] 2 tab PO BID #60 tablet Continue Baclofen [Lioresal] 20 mg PO BID HYDROcodone/APAP 7.5-325MG [[place] 7.5-325] 1 tab PO BID Pantoprazole Sodium [Protonix] 40 mg PO DAILY QUEtiapine [SEROquel] 50 mg PO HS rOPINIRole HCL [Requip] 1 mg PO HS Cyanocobalamin (Vitamin B-12) [Vitamin B-12] 2,000 mcg PO DAILY Pyridoxine HCl (Vitamin B6) [Pyridoxine HCl] 25 mg PO DAILY Ubidecarenone [Coenzyme Q10] 200 mg PO DAILY tadalafiL 20 mg PO DAILY PRN PRN Reason: E.D. Losartan [Cozaar] 25 mg PO DAILY Furosemide [Lasix] 20 mg PO BID Ipratropium-Albuterol Nebulize [Duoneb 0.5 mg-3 mg/3 ml Soln] 3 ml INHALATION RT-QID PRN PRN Reason: Shortness Of Breath Folic Acid 1.6 mg PO DAILY methylPREDNISolone Dose Pack [Medrol Dose Pack] See Taper PO DIRECTED SUMAtriptan succinate [Imitrex] 50 mg PO BID PRN PRN Reason: Migraine Headache Spironolactone [Aldactone] 25 mg PO DAILY #30 tab Albuterol Inhaler [Ventolin Hfa Inhaler] 2 puff INHALATION RT-QID PRN PRN Reason: Shortness Of Breath Morphine Sulfate ER [Ms Contin] 30 mg PO Q12H Ferrous Sulfate [Iron (65 MG Elemental)] 325 mg PO DAILY carvediloL [Coreg] 6.25 mg PO BID Tiotropium 2.5 Mcg/Puff [Spiriva Respimat 2.5 Mcg] 2 puff INHALATION RT-DAILY DULoxetine HCL [Cymbalta] 30 mg PO DAILY Mirtazapine [Remeron] 30 mg PO HS Discharge Medication List Baclofen [Lioresal] 20 mg PO BID 12/21/15 [History] HYDROcodone/APAP 7.5-325MG [[place] 7.5-325] 1 tab PO BID 04/17/20 [History] Pantoprazole Sodium [Protonix] 40 mg PO DAILY 04/17/20 [History] QUEtiapine [SEROquel] 50 mg PO HS 09/14/21 [History] SUMAtriptan succinate [Imitrex] 50 mg PO BID PRN 09/14/21 [History] rOPINIRole HCL [Requip] 1 mg PO HS 09/17/21 [History] Spironolactone [Aldactone] 25 mg PO DAILY #30 tab 12/26/21 [Rx] Albuterol Inhaler [Ventolin Hfa Inhaler] 2 puff INHALATION RT-QID PRN 01/03/22 [History] Morphine Sulfate ER [Ms Contin] 30 mg PO Q12H 03/06/22 [History] Cyanocobalamin (Vitamin B-12) [Vitamin B-12] 2,000 mcg PO DAILY 04/06/22 [History] Ferrous Sulfate [Iron (65 MG Elemental)] 325 mg PO DAILY 04/06/22 [History] Pyridoxine HCl (Vitamin B6) [Pyridoxine HCl] 25 mg PO DAILY 04/06/22 [History] Ubidecarenone [Coenzyme Q10] 200 mg PO DAILY 04/06/22 [History] carvediloL [Coreg] 6.25 mg PO BID 04/06/22 [History] tadalafiL 20 mg PO DAILY PRN 04/06/22 [History] DULoxetine HCL [Cymbalta] 30 mg PO DAILY 08/17/22 [History] Folic Acid 1.6 mg PO DAILY 08/17/22 [History] Furosemide [Lasix] 20 mg PO BID 08/17/22 [History] Ipratropium-Albuterol Nebulize [Duoneb 0.5 mg-3 mg/3 ml Soln] 3 ml INHALATION RT-QID PRN 08/17/22 [History] Losartan [Cozaar] 25 mg PO DAILY 08/17/22 [History] Mirtazapine [Remeron] 30 mg PO HS 08/17/22 [History] Tiotropium 2.5 Mcg/Puff [Spiriva Respimat 2.5 Mcg] 2 puff INHALATION RT-DAILY 08/17/22 [History] methylPREDNISolone Dose Pack [Medrol Dose Pack] See Taper PO DIRECTED 10/23/22 [History] Sennosides-Docusate Sodium [Senokot-S] 2 tab PO BID #60 tablet 10/25/22 [Rx] Follow up Appointment(s)/Referral(s): Mack Fox DO [Primary Care Provider] - 1 Week
== END 2022-10-25 14:16 | disposition home or self-care (01) | DRG 389 ==
LOC: EC 14:21 → 4SSUR 21:09 → 6NMEDSUR 10-24 09:09
PROVIDERS: ADMIT Family Medicine; ATTEND Family Medicine
DX: K56.690 Other partial intestinal obstruction (principal); I38 Endocarditis, valve unspecified; K50.90 Crohn's disease, unspecified, without complications; I42.8 Other cardiomyopathies; J44.9 Chronic obstructive pulmonary disease, unspecified; G35 Multiple sclerosis; I34.0 Nonrheumatic mitral (valve) insufficiency; Z28.310 Unvaccinated for COVID-19; H91.92 Unspecified hearing loss, left ear; N50.3 Cyst of epididymis; F17.210 Nicotine dependence, cigarettes, uncomplicated; F10.90 Alcohol use, unspecified, uncomplicated; F41.9 Anxiety disorder, unspecified; F32.A Depression, unspecified; G89.4 Chronic pain syndrome; G43.909 Migraine, unspecified, not intractable, without status migrainosus; M54.2 Cervicalgia; M54.9 Dorsalgia, unspecified; Z79.891 Long term (current) use of opiate analgesic; Z79.899 Other long term (current) drug therapy; Z86.16 Personal history of COVID-19; Z86.14 Personal history of Methicillin resistant Staphylococcus aureus infection; Z88.8 Allergy status to other drugs, medicaments and biological substances; Z96.641 Presence of right artificial hip joint; Z98.1 Arthrodesis status
CPT/HCPCS: 36415; 74176; 76870; 80048; 80053; 81003; 82150; 83605; 85025; 93975; 96361; 96374; 96375; 99285

== ENCOUNTER 2022-11-19 02:40 | Emergency (ER) | payer MEDICARE ==
[2022-11-19 02:46] VITALS: RESP 18; TEMP 97.4
[2022-11-19] MEDS ORDERED: KETOROLAC 15 MG/ML 1 ML VIAL IM STA (02:53)
[2022-11-19] MEDS ORDERED: CYCLOBENZAPRINE 10 MG TAB PO STA (03:52)
--- NOTE | 2022-11-19 04:17 | ED ---
General Adult HPI - General Chief complaint: Fall Stated complaint: Fall, Left Side Hurt Time Seen by Provider: 11/19/22 02:47 Source: patient, RN notes reviewed Mode of arrival: ambulatory Limitations: no limitations - History of Present Illness Initial comments: 57-year-old male with no significant past medical history presents the emergency department the chief complaint of a fall. Patient reports that he fell from ground level earlier today. He reports right shoulder and right leg pain. He denies hitting his head or loss of consciousness or anticoagulant use. He denies any dizziness, lightheadedness, nausea,, chest pain, shortness of breath, melena, hematochezia. He has taken his glucose 7.5 home for his pain with mild relief. - Related Data Home Medications Medication Instructions Recorded Confirmed Baclofen [Lioresal] 20 mg PO BID 12/21/15 10/23/22 HYDROcodone/APAP 7.5-325MG [[place] 1 tab PO BID 04/17/20 10/23/22 7.5-325] Pantoprazole Sodium [Protonix] 40 mg PO DAILY 04/17/20 10/23/22 QUEtiapine [SEROquel] 50 mg PO HS 09/14/21 10/23/22 SUMAtriptan succinate [Imitrex] 50 mg PO BID PRN 09/14/21 10/23/22 rOPINIRole HCL [Requip] 1 mg PO HS 09/17/21 10/23/22 Albuterol Inhaler [Ventolin Hfa 2 puff INHALATION RT-QID PRN 01/03/22 10/23/22 Inhaler] Morphine Sulfate ER [Ms Contin] 30 mg PO Q12H 03/06/22 10/23/22 Cyanocobalamin (Vitamin B-12) 2,000 mcg PO DAILY 04/06/22 10/23/22 [Vitamin B-12] Ferrous Sulfate [Iron (65 MG 325 mg PO DAILY 04/06/22 10/23/22 Elemental)] Pyridoxine HCl (Vitamin B6) 25 mg PO DAILY 04/06/22 10/23/22 [Pyridoxine HCl] Ubidecarenone [Coenzyme Q10] 200 mg PO DAILY 04/06/22 10/23/22 carvediloL [Coreg] 6.25 mg PO BID 04/06/22 10/23/22 tadalafiL 20 mg PO DAILY PRN 04/06/22 10/23/22 DULoxetine HCL [Cymbalta] 30 mg PO DAILY 08/17/22 10/23/22 Folic Acid 1.6 mg PO DAILY 08/17/22 10/23/22 Furosemide [Lasix] 20 mg PO BID 08/17/22 10/23/22 Ipratropium-Albuterol Nebulize 3 ml INHALATION RT-QID PRN 08/17/22 10/23/22 [Duoneb 0.5 mg-3 mg/3 ml Soln] Losartan [Cozaar] 25 mg PO DAILY 08/17/22 10/23/22 Mirtazapine [Remeron] 30 mg PO HS 08/17/22 10/23/22 Tiotropium 2.5 Mcg/Puff [Spiriva 2 puff INHALATION RT-DAILY 08/17/22 10/23/22 Respimat 2.5 Mcg] methylPREDNISolone Dose Pack See Taper PO DIRECTED 10/23/22 10/23/22 [Medrol Dose Pack] Previous Rx's Medication Instructions Recorded Spironolactone [Aldactone] 25 mg PO DAILY #30 tab 12/26/21 Sennosides-Docusate Sodium 2 tab PO BID #60 tablet 10/25/22 [Senokot-S] Allergies Allergy/AdvReac Type Severity Reaction Status Date / Time lisinopril Allergy Swelling Verified 11/19/22 02:43 of the mouth Review of Systems ROS Statement: Those systems with pertinent positive or pertinent negative responses have been documented in the HPI. ROS Other: All systems not noted in ROS Statement are negative. Past Medical History Past Medical History: Chest Pain / Angina, Heart Failure, COPD, Eye Disorder, Musculoskeletal Disorder, Neurologic Disorder Additional Past Medical History / Comment(s): COVID 17 January-Jan 2022, Multiple sclerosis USES A CANE/ walker TO AMBULATE, falls. has had in past occasional DOUBLE VISION. CHRONIC BACK NECK PAIN. HAD SPINAL STIMULATOR, THEN REMOVED; Migraine headache. Crohn's disease.lt ear [place] History of Any Multi-Drug Resistant Organisms: None Reported, MRSA Date of last positivie culture/infection: 2014 MDRO Source:: lower back Past Surgical History: Appendectomy, Back Surgery, Bowel Resection, Hernia Repair Additional Past Surgical History / Comment(s): CERVICAL FUSION. SPINAL STIMULATOR implantation, revision and removal. FOREIGN BODY REMOVED RT CHEST WALL. 10/18/2015 wire removed from back. (from stimulator) Past Anesthesia/Blood Transfusion Reactions: Previous Problems w/ Anesthesia Additional Past Anesthesia/Blood Transfusion Reaction / Comment(s): STATES TAKES A LONG TIME TO WAKE UP Past Psychological History: Anxiety, Depression Smoking Status: Current every day smoker Past Alcohol Use History: Occasional Past Drug Use History: Marijuana - Past Family History Father Family Medical History: Cancer, Diabetes Mellitus Additional Family Medical History / Comment(s): CABG-TRIPLE BYPASS, Mother Family Medical History: Cancer, CVA/TIA, Diabetes Mellitus Additional Family Medical History / Comment(s): Stroke Brother(s) Additional Family Medical History / Comment(s): cardiomyopathy General Exam - General Exam Comments Initial Comments: General: Alert, in no acute distress Head: atraumatic normocephalic. Eyes PERRL, EOMI intact, mucous membranes moist Respiratory: Lungs clear to auscultation bilaterally Cardiovascular: Heart rate regular rate and rhythm Abdominal: Soft without guarding or rebound Extremities: Normal inspection with full range of motion and normal capillary refill Neuroogic: alert and oriented 3, CN II-XII intact, able to ambulate with steady gait Skin: warm dry and intact with normal color Limitations: no limitations Course Vital Signs 11/19/22 11/19/22 02:43 04:34 Temperature 97.4 F L Pulse Rate 102 H 99 Respiratory 18 18 Rate Blood Pressure 130/82 124/68 O2 Sat by Pulse 98 99 Oximetry Medical Decision Making - Medical Decision Making Was pt. sent in by a medical professional or institution (, PA, POL[employer], urgent care, hospital, or long-term...) When possible be specific @ -[No] Did you speak to anyone other than the patient for history (EMS, parent, family, police, friend...)? What history was obtained from this source @ -[No] Did you review nursing and triage notes (agree or disagree)? Why? @ -[I reviewed and agree with nursing and triage notes] Were old charts reviewed (outside hosp., previous admission, EMS record, old EKG, old radiological studies, urgent care reports/EKG's, long-term records)? Report findings @ -[No old charts were reviewed] Differential Diagnosis (chest pain, altered mental status, abdominal pain women, abdominal pain men, vaginal bleeding, weakness, fever, dyspnea, syncope, headache, dizziness, GI bleed, back pain, seizure, CVA, palpatations, mental health, musculoskeletal)? @ -[not applicable] EKG interpreted by me (3pts min.). @ -[As above] X-rays interpreted by me (1pt min.). @ X-rays negative for acute fracture or dislocation CT interpreted by me (1pt min.). @ -[None done] U/S interpreted by me (1pt. min.). @ -[None done] What testing was considered but not performed or refused? (CT, X-rays, U/S, labs)? Why? @ -[None] What meds were considered but not given or refused? Why? @ -[None] Did you discuss the management of the patient with other professionals (professionals i.e. , PA, [employer], lab, RT, psych nurse, social sciences lecturer, french translator, teacher, giving officer, gearcase assembler)? Give summary @ -[No] Was smoking cessation discussed for >3mins.? @ -[No] Was critical care preformed (if so, how long)? @ -[No] Were there social determinants of health that impacted care today? How? (Homelessness, low income, unemployed, alcoholism, drug addiction, transportation, low edu. Level, literacy, decrease access to med. care, [facility], rehab)? @ -[No] Was there de-escalation of care discussed even if they declined (Discuss DNR or withdrawal of care, Hospice)? DNR status @ -[No] What co-morbidities impacted this encounter? (DM, HTN, Smoking, COPD, CAD, Cancer, CVA, ARF, Chemo, Hep., AIDS, mental health diagnosis, sleep apnea, morbid obesity)? @ -[None] Was patient admitted / discharged? Hospital course, mention meds given and route, prescriptions, significant lab abnormalities, going to OR and other pertinent info. @ -Discharged. This is a 57-year-old male who presents the emergency department with hip pain. Patient had a thorough history and physical exam performed on the ED. This will exam is essentially unremarkable heart rate regular rate and rhythm, lungs clear to auscultation bilaterally, abdomen is soft and nontender. Patient had and imaging which was essentially unremarkable. Patient was given Tylenol, Lidoderm patch and morphine with symptomatically relief. I discussed results in detail with the patient verbalized understanding and all questions were addressed. Patient was given Zofran with mild symptomatically relief. She return precautions were discussed at length. She was discharged in stable condition, Case discussed with Dr. Gillette, who agrees with plan of care. Undiagnosed new problem with uncertain prognosis? @ -[No] Drug Therapy requiring intensive monitoring for toxicity (Heparin, Nitro, Insulin, Cardizem)? @ -[No] Were any procedures done? @ -[No] Diagnosis/symptom? @ -Hip pain Acute, or Chronic, or Acute on Chronic? @ -[default] Uncomplicated (without systemic symptoms) or Complicated (systemic symptoms)? @ -uncomplicated Side effects of treatment? @ -[No] Exacerbation, Progression, or Severe Exacerbation? @ -[No] Poses a threat to life or bodily function? How? (Chest pain, [place], [place], pneumonia, PE, COPD, DKA, ARF, appy, cholecystitis, CVA, Diverticulitis, Homicidal, Suicidal, threat to staff... and all critical care pts) @ -low likelihood Disposition Clinical Impression: Right shoulder pain, Right hip pain Disposition: HOME SELF-CARE Condition: Stable Instructions (If sedation given, give patient instructions): Fall Prevention (ED) Additional Instructions: Please return to the nearest emergency department if symptoms worsen or persist Is patient prescribed a controlled substance at d/c from ED?: No Referrals: Mack Fox DO [Primary Care Provider] - 1-2 days Time of Disposition: 04:24
[2022-11-19 05:14] VITALS: BP 124/68; PULSE 99
--- NOTE | 2022-11-19 05:33 | XR ---
EXAMINATION TYPE: XR shoulder complete RT DATE OF EXAM: 11/19/2022 CLINICAL HISTORY: Pain TECHNIQUE: Three views of the right shoulder are obtained. COMPARISON: Right shoulder x-ray April 22, 2014 FINDINGS: There is no acute fracture/dislocation evident in the right shoulder. Moderate narrowing a t the acromioclavicular joint remains present. Glenohumeral joint is preserved. The visualized ribs are intact. Anterior fusion plate lower cervical spine is incidentally noted. IMPRESSION: As above.
--- NOTE | 2022-11-19 05:35 | XR ---
EXAMINATION TYPE: XR Hip Bilateral and AP pelvis DATE OF EXAM: 11/19/2022 COMPARISON: CT abdomen and pelvis October 23, 2022 HISTORY: Fall injury with bilateral hip pain TECHNIQUE: A single AP view of the pelvis is obtained. Two views of the bilateral hips are obtained. FINDINGS: There is no acute fracture/dislocation evident in the pelvis. The sacroiliac joints appea r symmetric and within normal limits. Pubic symphysis is intact. Large right-sided pelvic phlebolith redemonstrated. Two views of bilateral hips show no acute fracture or dislocation. Metallic hardware from total right hip arthroplasty remains stable and satisfactory in position. Left hip joint region demonstrates mil [id number] axial joint space loss and acetabular spurring. Overlying soft tissue is unremarkable b ilaterally. IMPRESSION: As above. No acute findings are evident.
== END 2022-11-19 04:34 | disposition home or self-care (01) ==
LOC: EC 02:40
DX: M25.511 Pain in right shoulder (principal); M25.551 Pain in right hip; I50.9 Heart failure, unspecified; J44.9 Chronic obstructive pulmonary disease, unspecified; F32.A Depression, unspecified; F41.9 Anxiety disorder, unspecified; F17.200 Nicotine dependence, unspecified, uncomplicated; F12.90 Cannabis use, unspecified, uncomplicated; Z79.899 Other long term (current) drug therapy; Z86.16 Personal history of COVID-19; Z88.8 Allergy status to other drugs, medicaments and biological substances; Z90.49 Acquired absence of other specified parts of digestive tract; W18.30XA Fall on same level, unspecified, initial encounter
CPT/HCPCS: 73521; 73030; 99284; 96372; J1885

== ENCOUNTER 2022-12-07 16:05 | Emergency (ER) | payer MEDICARE ==
[2022-12-07] MEDS ORDERED: HYDROmorphone 0.5 MG/0.5 ML SYRINGE IM STA (16:44)
--- NOTE | 2022-12-07 16:44 | ED ---
General Adult HPI - General Chief complaint: Skin/Abscess/Foreign Body Stated complaint: L Side Face Irritation Time Seen by Provider: 12/07/22 16:18 Source: family, RN notes reviewed Mode of arrival: ambulatory Limitations: no limitations - History of Present Illness Initial comments: 57-year-old male with no significant past medical history presents to the emergency department with a chief complaint of left-sided facial problem. Patient reports 2 weeks ago he was bitten by a bug on his lower lip. He reports sensations of numbness and tingling to his left lower jaw and left that has been on and off for 2 weeks. He reports a burning sensation. He's been taking oxycodone and [place] at home with mild symptomatic relief. He denies any fevers, chills, cough, throat. Denies Injury or trauma. - Related Data Home Medications Medication Instructions Recorded Confirmed Baclofen [Lioresal] 20 mg PO BID 12/21/15 12/07/22 HYDROcodone/APAP 7.5-325MG [[place] 1 tab PO BID 04/17/20 12/07/22 7.5-325] Pantoprazole Sodium [Protonix] 40 mg PO DAILY 04/17/20 12/07/22 QUEtiapine [SEROquel] 50 mg PO HS 09/14/21 12/07/22 SUMAtriptan succinate [Imitrex] 50 mg PO BID PRN 09/14/21 12/07/22 rOPINIRole HCL [Requip] 1 mg PO HS 09/17/21 12/07/22 Albuterol Inhaler [Ventolin Hfa 2 puff INHALATION RT-QID PRN 01/03/22 12/07/22 Inhaler] Morphine Sulfate ER [Ms Contin] 30 mg PO Q12H 03/06/22 12/07/22 Cyanocobalamin (Vitamin B-12) 2,000 mcg PO DAILY 04/06/22 12/07/22 [Vitamin B-12] Ferrous Sulfate [Iron (65 MG 325 mg PO DAILY 04/06/22 12/07/22 Elemental)] Pyridoxine HCl (Vitamin B6) 25 mg PO DAILY 04/06/22 12/07/22 [Pyridoxine HCl] Ubidecarenone [Coenzyme Q10] 200 mg PO DAILY 04/06/22 12/07/22 carvediloL [Coreg] 6.25 mg PO BID 04/06/22 12/07/22 tadalafiL 20 mg PO DAILY PRN 04/06/22 12/07/22 DULoxetine HCL [Cymbalta] 30 mg PO DAILY 08/17/22 12/07/22 Folic Acid 1.6 mg PO DAILY 08/17/22 12/07/22 Furosemide [Lasix] 20 mg PO BID 08/17/22 12/07/22 Ipratropium-Albuterol Nebulize 3 ml INHALATION RT-QID PRN 08/17/22 12/07/22 [Duoneb 0.5 mg-3 mg/3 ml Soln] Losartan [Cozaar] 25 mg PO DAILY 08/17/22 12/07/22 Mirtazapine [Remeron] 30 mg PO HS 08/17/22 12/07/22 Tiotropium 2.5 Mcg/Puff [Spiriva 2 puff INHALATION RT-DAILY 08/17/22 12/07/22 Respimat 2.5 Mcg] Lidex 0.05% Solution 1 applic TOPICAL DAILY PRN 12/07/22 12/07/22 valACYclovir HCL [Valtrex] 1,000 mg PO Q8H 12/07/22 12/07/22 Previous Rx's Medication Instructions Recorded Spironolactone [Aldactone] 25 mg PO DAILY #30 tab 12/26/21 Sennosides-Docusate Sodium 2 tab PO BID #60 tablet 10/25/22 [Senokot-S] Allergies Allergy/AdvReac Type Severity Reaction Status Date / Time lisinopril Allergy Swelling Verified 12/07/22 17:15 of the mouth Review of Systems ROS Statement: Those systems with pertinent positive or pertinent negative responses have been documented in the HPI. ROS Other: All systems not noted in ROS Statement are negative. Past Medical History Past Medical History: Chest Pain / Angina, Heart Failure, COPD, Eye Disorder, Musculoskeletal Disorder, Neurologic Disorder Additional Past Medical History / Comment(s): COVID 17 January-Jan 2022, Multiple sclerosis USES A CANE/ walker TO AMBULATE, falls. has had in past occasional DOUBLE VISION. CHRONIC BACK NECK PAIN. HAD SPINAL STIMULATOR, THEN REMOVED; Migraine headache. Crohn's disease.lt ear t[place] & [place] History of Any Multi-Drug Resistant Organisms: None Reported, MRSA Date of last positivie culture/infection: 2014 MDRO Source:: lower back Past Surgical History: Appendectomy, Back Surgery, Bowel Resection, Hernia Repair Additional Past Surgical History / Comment(s): CERVICAL FUSION. SPINAL STIMULATOR implantation, revision and removal. FOREIGN BODY REMOVED RT CHEST WALL. 10/18/2015 wire removed from back. (from stimulator) Past Anesthesia/Blood Transfusion Reactions: Previous Problems w/ Anesthesia Additional Past Anesthesia/Blood Transfusion Reaction / Comment(s): STATES TAKES A LONG TIME TO WAKE UP Past Psychological History: Anxiety, Depression Smoking Status: Current every day smoker Past Alcohol Use History: Occasional Past Drug Use History: Marijuana - Past Family History Father Family Medical History: Cancer, Diabetes Mellitus Additional Family Medical History / Comment(s): CABG-TRIPLE BYPASS, Mother Family Medical History: Cancer, CVA/TIA, Diabetes Mellitus Additional Family Medical History / Comment(s): Stroke Brother(s) Additional Family Medical History / Comment(s): cardiomyopathy General Exam - General Exam Comments Initial Comments: General: Alert, in no acute distress Head: atraumatic normocephalic. Eyes PERRL, EOMI intact, mucous membranes moist Respiratory: Lungs clear to auscultation bilaterally Cardiovascular: Heart rate regular rate and rhythm Abdominal: Soft without guarding or rebound Extremities: Normal inspection with full range of motion and normal capillary refill Neuroogic: alert and oriented 3, CN II-XII intact, able to ambulate with steady gait Skin: warm dry and intact with normal color Limitations: no limitations Course Vital Signs 12/07/22 12/07/22 16:07 18:12 Temperature 97.9 F 98.2 F Pulse Rate 80 74 Respiratory 20 16 Rate Blood Pressure 127/77 113/70 O2 Sat by Pulse 99 100 Oximetry Medical Decision Making - Medical Decision Making Was pt. sent in by a medical professional or institution (, PA, SYSTEMS DESIGNER, urgent care, hospital, or halfway...) When possible be specific @ -[No] Did you speak to anyone other than the patient for history (EMS, parent, family, police, friend...)? What history was obtained from this source @ -[No] Did you review nursing and triage notes (agree or disagree)? Why? @ -[I reviewed and agree with nursing and triage notes] Were old charts reviewed (outside hosp., previous admission, EMS record, old EKG, old radiological studies, urgent care reports/EKG's, halfway records)? Report findings @ -[No old charts were reviewed] Differential Diagnosis (chest pain, altered mental status, abdominal pain women, abdominal pain men, vaginal bleeding, weakness, fever, dyspnea, syncope, headache, dizziness, GI bleed, back pain, seizure, CVA, palpatations, mental health, musculoskeletal)? @ -[not applicable] EKG interpreted by me (3pts min.). @ -[As above] X-rays interpreted by me (1pt min.). @ -[None done] CT interpreted by me (1pt min.). @ -[None done] U/S interpreted by me (1pt. min.). @ -[None done] What testing was considered but not performed or refused? (CT, X-rays, U/S, labs)? Why? @ -[None] What meds were considered but not given or refused? Why? @ -[None] Did you discuss the management of the patient with other professionals (professionals i.e. , PA, SYSTEMS DESIGNER, lab, RT, psych nurse, social and human services assistant, applied exercise physiologist, teacher, hospital chief financial officer, case advocate)? Give summary @ -[No] Was smoking cessation discussed for >3mins.? @ -[No] Was critical care preformed (if so, how long)? @ -[No] Were there social determinants of health that impacted care today? How? (Homelessness, low income, unemployed, alcoholism, drug addiction, transportation, low edu. Level, literacy, decrease access to med. care, prison, rehab)? @ -[No] Was there de-escalation of care discussed even if they declined (Discuss DNR or withdrawal of care, Hospice)? DNR status @ -[No] What co-morbidities impacted this encounter? (DM, HTN, Smoking, COPD, CAD, Cancer, CVA, ARF, Chemo, Hep., AIDS, mental health diagnosis, sleep apnea, morbid obesity)? @ -[None] Was patient admitted / discharged? Hospital course, mention meds given and route, prescriptions, significant lab abnormalities, going to OR and other pertinent info. @ -Discharged. This is a 57-year-old male who presents to the emergency department with facial pain. Patient had a thorough history and physical exam performed on the ED. Physical exam is essentially unremarkable. Heart rate regular rate and rhythm, lungs are to auscultation bilaterally, abdomen soft and nontender. Patient able to ambulate with a steady gait. No focal neuro deficits noted. Patient imaging performed which was negative. I discussed the results in detail with the patient verbalized understanding and all questions were addressed. Patient was given Dilaudid for symptomatic relief on the ED. Return precautions were discussed at length. Patient discharged in stable condition. Case discussed with PIERO Garcia who agrees with plan of care Undiagnosed new problem with uncertain prognosis? @ -[No] Drug Therapy requiring intensive monitoring for toxicity (Heparin, Nitro, Insulin, Cardizem)? @ -[No] Were any procedures done? @ -[No] Diagnosis/symptom? @ -Facial problem - Hx of HSV1 Acute, or Chronic, or Acute on Chronic? @ -acute Uncomplicated (without systemic symptoms) or Complicated (systemic symptoms)? @ -uncomplicated Side effects of treatment? @ -[No] Exacerbation, Progression, or Severe Exacerbation? @ -[No] Poses a threat to life or bodily function? How? (Chest pain, [place], [place], pneumonia, PE, COPD, DKA, ARF, appy, cholecystitis, CVA, Diverticulitis, Homicidal, Suicidal, threat to staff... 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
[2022-12-07 18:14] VITALS: BP 113/70; PULSE 74; RESP 16; TEMP 98.2
== END 2022-12-07 18:14 | disposition home or self-care (01) ==
LOC: EC 16:05
DX: B00.9 Herpesviral infection, unspecified (principal); J44.9 Chronic obstructive pulmonary disease, unspecified; I50.9 Heart failure, unspecified; F41.9 Anxiety disorder, unspecified; F32.A Depression, unspecified; Z86.16 Personal history of COVID-19; F17.200 Nicotine dependence, unspecified, uncomplicated; F12.90 Cannabis use, unspecified, uncomplicated; Z88.8 Allergy status to other drugs, medicaments and biological substances; Z79.899 Other long term (current) drug therapy
CPT/HCPCS: 99284; 96372; J1170

== ENCOUNTER → 2022-12-13 | Outpatient (CLI) | payer MEDICARE ==
[2022-12-14 02:05] LABS: BUN/Creat Ratio 11.44 Ratio (12.00-20.00); Blood Urea Nitrogen 10.3 mg/dL (9.0-27.0); Calcium 9.2 mg/dL (8.7-10.3); Carbon Dioxide 25.1 mmol/L (21.6-31.8); Chloride 102 mmol/L (96-109); Glucose 99 mg/dL (70-110); Potassium 4.4 mmol/L (3.5-5.5); Sodium 139 mmol/L (135-145)
== END | disposition home or self-care (01) ==
LOC: LABWHC1 16:17
PROVIDERS: ATTEND Internal Medicine Cardiovascular Disease
DX: I50.22 Chronic systolic (congestive) heart failure (principal)
CPT/HCPCS: 36415; 80048; 83880

== ENCOUNTER 2023-01-11 19:37 | Emergency (ER) | payer MEDICARE ==
[2023-01-11 20:01] VITALS: BP 112/76; PULSE 83; RESP 16; TEMP 98.1
--- NOTE | 2023-01-11 21:27 | ED ---
General Adult HPI - General Chief complaint: Extremity Injury, Upper Stated complaint: Rt arm injury Time Seen by Provider: 01/11/23 20:08 Source: patient, RN notes reviewed Mode of arrival: EMS Limitations: no limitations - History of Present Illness Initial comments: 57-year-old male presents to the emergency department chief complaint of right elbow, wrist, shoulder pain. He states that he fell about 2 weeks ago on his right side and has been experiencing pain since then. He reports that he continues to use his right sided arm and states that the pain has progressively been getting worse since the time of the injury. He reports that he is able to move his extremity well. He is scheduled to see his orthopedic doctor on Sunday. He denies any redness or swelling to the area. Denies numbness tingling. Past medical history includes COPD, CHF. - Related Data Home Medications Medication Instructions Recorded Confirmed Baclofen [Lioresal] 20 mg PO BID 12/21/15 12/07/22 HYDROcodone/APAP 7.5-325MG [[place] 1 tab PO BID 04/17/20 12/07/22 7.5-325] Pantoprazole Sodium [Protonix] 40 mg PO DAILY 04/17/20 12/07/22 QUEtiapine [SEROquel] 50 mg PO HS 09/14/21 12/07/22 SUMAtriptan succinate [Imitrex] 50 mg PO BID PRN 09/14/21 12/07/22 rOPINIRole HCL [Requip] 1 mg PO HS 09/17/21 12/07/22 Albuterol Inhaler [Ventolin Hfa 2 puff INHALATION RT-QID PRN 01/03/22 12/07/22 Inhaler] Morphine Sulfate ER [Ms Contin] 30 mg PO Q12H 03/06/22 12/07/22 Cyanocobalamin (Vitamin B-12) 2,000 mcg PO DAILY 04/06/22 12/07/22 [Vitamin B-12] Ferrous Sulfate [Iron (65 MG 325 mg PO DAILY 04/06/22 12/07/22 Elemental)] Pyridoxine HCl (Vitamin B6) 25 mg PO DAILY 04/06/22 12/07/22 [Pyridoxine HCl] Ubidecarenone [Coenzyme Q10] 200 mg PO DAILY 04/06/22 12/07/22 carvediloL [Coreg] 6.25 mg PO BID 04/06/22 12/07/22 tadalafiL 20 mg PO DAILY PRN 04/06/22 12/07/22 DULoxetine HCL [Cymbalta] 30 mg PO DAILY 08/17/22 12/07/22 Folic Acid 1.6 mg PO DAILY 08/17/22 12/07/22 Furosemide [Lasix] 20 mg PO BID 08/17/22 12/07/22 Ipratropium-Albuterol Nebulize 3 ml INHALATION RT-QID PRN 08/17/22 12/07/22 [Duoneb 0.5 mg-3 mg/3 ml Soln] Losartan [Cozaar] 25 mg PO DAILY 08/17/22 12/07/22 Mirtazapine [Remeron] 30 mg PO HS 08/17/22 12/07/22 Tiotropium 2.5 Mcg/Puff [Spiriva 2 puff INHALATION RT-DAILY 08/17/22 12/07/22 Respimat 2.5 Mcg] Lidex 0.05% Solution 1 applic TOPICAL DAILY PRN 12/07/22 12/07/22 valACYclovir HCL [Valtrex] 1,000 mg PO Q8H 12/07/22 12/07/22 Previous Rx's Medication Instructions Recorded Spironolactone [Aldactone] 25 mg PO DAILY #30 tab 12/26/21 Sennosides-Docusate Sodium 2 tab PO BID #60 tablet 10/25/22 [Senokot-S] Allergies Allergy/AdvReac Type Severity Reaction Status Date / Time lisinopril Allergy Swelling Verified 01/11/23 19:54 of the mouth Review of Systems ROS Statement: Those systems with pertinent positive or pertinent negative responses have been documented in the HPI. ROS Other: All systems not noted in ROS Statement are negative. Past Medical History Past Medical History: Chest Pain / Angina, Heart Failure, COPD, Eye Disorder, Musculoskeletal Disorder, Neurologic Disorder Additional Past Medical History / Comment(s): COVID 17 January-Jan 2022, Multiple sclerosis USES A CANE/ walker TO AMBULATE, falls. has had in past occasional DOUBLE VISION. CHRONIC BACK NECK PAIN. HAD SPINAL STIMULATOR, THEN REMOVED; Migraine headache. Crohn's disease.lt ear [place] History of Any Multi-Drug Resistant Organisms: None Reported, MRSA Date of last positivie culture/infection: 2014 MDRO Source:: lower back Past Surgical History: Appendectomy, Back Surgery, Bowel Resection, Hernia Repair Additional Past Surgical History / Comment(s): CERVICAL FUSION. SPINAL STIMULATOR implantation, revision and removal. FOREIGN BODY REMOVED RT CHEST WALL. 10/18/2015 wire removed from back. (from stimulator) Past Anesthesia/Blood Transfusion Reactions: Previous Problems w/ Anesthesia Additional Past Anesthesia/Blood Transfusion Reaction / Comment(s): STATES TAKES A LONG TIME TO WAKE UP Past Psychological History: Anxiety, Depression Smoking Status: Current every day smoker Past Alcohol Use History: Occasional Past Drug Use History: Marijuana - Past Family History Father Family Medical History: Cancer, Diabetes Mellitus Additional Family Medical History / Comment(s): CABG-TRIPLE BYPASS, Mother Family Medical History: Cancer, CVA/TIA, Diabetes Mellitus Additional Family Medical History / Comment(s): Stroke Brother(s) Additional Family Medical History / Comment(s): cardiomyopathy General Exam Limitations: no limitations General appearance: alert, in no apparent distress Head exam: Present: atraumatic, normocephalic, normal inspection Eye exam: Present: normal appearance ENT exam: Present: normal exam, mucous membranes moist Neck exam: Present: normal inspection, full ROM. Absent: tenderness, meningismus, lymphadenopathy Respiratory exam: Present: normal lung sounds bilaterally. Absent: respiratory distress, wheezes, rales, rhonchi, stridor Cardiovascular Exam: Present: regular rate, normal rhythm, normal heart sounds. Absent: systolic murmur, diastolic murmur, rubs, gallop, clicks Extremities exam: Present: normal inspection, full ROM, tenderness (Lateral Right elbow, wrist, posterior shoulder), normal capillary refill, other (Radial pulses 2+). Absent: pedal edema, joint swelling, calf tenderness Back exam: Present: normal inspection Neurological exam: Present: alert, oriented X3 Psychiatric exam: Present: normal affect, normal mood Skin exam: Present: warm, dry, intact, normal color. Absent: rash Course Vital Signs 01/11/23 19:55 Temperature 98.1 F Pulse Rate 83 Respiratory 16 Rate Blood Pressure 112/76 O2 Sat by Pulse 96 Oximetry Medical Decision Making - Medical Decision Making Was pt. sent in by a medical professional or institution (, PA, WEAPONS SYSTEM INSTRUMENT MECHANIC, urgent care, hospital, or alf...) When possible be specific @ -No Did you speak to anyone other than the patient for history (EMS, parent, family, police, friend...)? What history was obtained from this source @ -No Did you review nursing and triage notes (agree or disagree)? Why? @ -I reviewed and agree with nursing and triage notes Were old charts reviewed (outside hosp., previous admission, EMS record, old EKG, old radiological studies, urgent care reports/EKG's, alf records)? Report findings @ -No old charts were reviewed Differential Diagnosis (chest pain, altered mental status, abdominal pain women, abdominal pain men, vaginal bleeding, weakness, fever, dyspnea, syncope, headache, dizziness, GI bleed, back pain, seizure, CVA, palpatations, mental health, musculoskeletal)? @ -Differential Musculoskeletal Muscular strain, contusion, ligament sprain, fracture, arthritis, septic arthritis, bursitis, cellulitis, muscle spasm, nerve compression, DVT, arterial occlusion, herpes zoster, electrolyte abnormality, tumor.... This is not meant to be in all inclusive list EKG interpreted by me (3pts min.). @ -None X-rays interpreted by me (1pt min.). @ -X-ray of right elbow, right shoulder, right wrist show no evidence for acute fracture CT interpreted by me (1pt min.). @ -None done U/S interpreted by me (1pt. min.). @ -None done What testing was considered but not performed or refused? (CT, X-rays, U/S, labs)? Why? @ -None What meds were considered but not given or refused? Why? @ -None Did you discuss the management of the patient with other professionals (professionals i.e. , PA, WEAP[employer] SYSTEM INSTRUMENT MECHANIC, lab, RT, psych nurse, social welfare administrator, control room agent, teacher, parking control officer, catalytic case operator)? Give summary @ -No Was smoking cessation discussed for >3mins.? @ -No Was critical care preformed (if so, how long)? @ -No Were there social determinants of health that impacted care today? How? (Homelessness, low income, unemployed, alcoholism, drug addiction, transporta tion, low edu. Level, literacy, decrease access to med. care, skilled nursing, rehab)? @ -No Was there de-escalation of care discussed even if they declined (Discuss DNR or withdrawal of care, Hospice)? DNR status @ -No What co-morbidities impacted this encounter? (DM, HTN, Smoking, COPD, CAD, Cancer, CVA, ARF, Chemo, Hep., AIDS, mental health diagnosis, sleep apnea, morbid obesity)? @ -None Was patient admitted / discharged? Hospital course, mention meds given and route, prescriptions, significant lab abnormalities, going to OR and other pertinent info. @ -Discharged. Patient presented to emergency department chief complaint of right shoulder and wrist pain following a fall that occurred 2 weeks ago. He is scheduled to see his orthopedic provider on Sunday. X-rays performed which showed no evidence for acute fracture. Discussed these findings with the patient and advised to keep his follow-up appointment on Sunday. Patient agreeable with plan of discharge. Case discussed my attending, Dr. Gillette. Patient stable at time of discharge Undiagnosed new problem with uncertain prognosis? @ -No Drug Therapy requiring intensive monitoring for toxicity (Heparin, Nitro, Insulin, Cardizem)? @ -No Were any procedures done? @ -No Diagnosis/symptom? @ -Right arm contusion Acute, or Chronic, or Acute on Chronic? @ -Acute Uncomplicated (without systemic symptoms) or Complicated (systemic symptoms)? @ -Uncomplicated Side effects of treatment? @ -No Exacerbation, Progression, or Severe Exacerbation? @ -No Poses a threat to life or bodily function? How? (Chest pain, [place], NH, pneumonia, PE, COPD, DKA, ARF, appy, cholecystitis, CVA, Diverticulitis, Homicidal, Suicidal, threat to staff... and all critical care pts) @ -No Disposition Clinical Impression: Elbow strain Disposition: HOME SELF-CARE Condition: Stable Instructions (If sedation given, give patient instructions): Elbow Sprain (ED) Additional Instructions: Please follow up with your orthopedic physician on Sunday as scheduled. Return to the emergency department for new or worsening symptoms. Is patient prescribed a controlled substance at d/c from ED?: No Referrals: Mack Fox DO [Primary Care Provider] - 1-2 days Time of Disposition: 22:31
--- NOTE | 2023-01-11 21:31 | XR ---
EXAMINATION TYPE: XR shoulder complete RT DATE OF EXAM: 01/11/2023 COMPARISON: NONE HISTORY: Pain TECHNIQUE: Shoulder examined in 3 projections. FINDINGS: The humeral head articulates with the glenoid. The acromio-clavicular junction is normal. No acute fractures or dislocations are evident. A follow up study can be performed 7-10 days from acute trauma for continued pain. MRI can be perfor med if soft tissue evaluation would be of benefit. IMPRESSION: 1. No acute osseous right shoulder abnormality.
--- NOTE | 2023-01-11 21:45 | XR ---
PROCEDURE: XR wrist complete RT - 4V DATE AND TIME: 01/11/2023 9:31 PM CLINICAL INDICATION: PHH; pain History of fall 2 weeks ago. TECHNIQUE: PA, lateral, oblique, and scaphoid views obtained. COMPARISON: None FINDINGS: There is no fracture or malalignment. The soft tissues are unremarkable. IMPRESSION: No acute process.
--- NOTE | 2023-01-11 21:52 | XR ---
PROCEDURE: XR elbow complete RT - 3V DATE AND TIME: 01/11/2023 9:36 PM CLINICAL INDICATION: pain, fall TECHNIQUE: Department protocol COMPARISON: 03/16/2018 FINDINGS: There is no fracture or malalignment. The soft tissues are unremarkable. IMPRESSION: NO ACUTE PROCESS.
== END 2023-01-11 22:41 | disposition home or self-care (01) ==
LOC: EC 19:37
DX: S66.911A Strain of unspecified muscle, fascia and tendon at wrist and hand level, right hand, initial encounter (principal); I50.9 Heart failure, unspecified; J44.9 Chronic obstructive pulmonary disease, unspecified; F41.9 Anxiety disorder, unspecified; F32.A Depression, unspecified; F17.200 Nicotine dependence, unspecified, uncomplicated; F12.90 Cannabis use, unspecified, uncomplicated; Z79.899 Other long term (current) drug therapy; Z88.6 Allergy status to analgesic agent; W18.30XA Fall on same level, unspecified, initial encounter
CPT/HCPCS: 99283

== ENCOUNTER 2023-01-22 06:32 | Day surgery (SDC) | payer MEDICARE ==
[2023-01-17 12:45] VITALS: BMI 25.7
[2023-01-22 07:02] VITALS: RESP 16; TEMP 97.2
--- NOTE | 2023-01-22 07:14 | P.HPOR ---
History of Present Illness H&P Date: 01/22/23 .D:Date: 11/29/22 : 09:06am .T:Title: [facility] Date of :[birth year] [id number]: NKDA Age: 57 year Height: 6'1" Weight: 175 lbs BMI: 23.09 Occupation: Disabled VAS: 6 CHIEF COMPLAINT: Low back pain DOI: N/A DOS: N/A Duration of current treatment regiment: > 6 months HISTORY : Xrays No new xrays taken in office today. Trauma or injury No Work-Related No Pain description Aching, burning, increasing Location Diffuse Patient notes that their pain radiates to right lower extremity Activity Modification Yes Hand Dominance Right TREATMENTS COMPLETED: 6 weeks of PT completed? Month and Year of last PT date? Yes How many sessions? 1 Did it help? yes Physician directed home exercise completed? Yes Medications Yes; List: Baclofen, [place], & Morphine Alternative interventions Chiropractic: No Massage therapy:No R.I.C.E:Yes Brace:No Injections No RFA:No Mr. Monroe presents to the office for an evaluation of their chronic low back pain. Patient states that he has been experiencing an ache-like, burning pain throughout the lumbar spine that has been ongoing for several years with no known injury or trauma to indicate an exact onset of their symptoms. In addition to their lumbar pain, they do report that it radiates into the posterior aspect of the right lower extremity, associated with numbness and tingling. Mr. Monroe's symptoms are exacerbated with prolonged sitting or standing, and due to this they note that it is increasingly difficult to complete many of their daily tasks. Patient is having moderate sleep disturbances as well due to their ongoing pain and associated symptoms. Regarding treatments, the patient has previously trialed physical therapy, medication management, and at home ice/heat therapies. The patient states that physical therapy has provided them with some improvement in their symptoms. The patient denies trialing any other modalities at this time. For their symptoms, the patient has been taking Baclofen, [place], and Morphine with some sustained relief. Otherwise the patient denies any f/c/sob/cp, no incision concerns, no bladder or bowel retention/incontinence, no perineal numbness/tingling, and ambulates with a walker today. The patients' past social, medical, family, surgical history, as well as review of systems, have been reviewed. Please refer to the Neurosurgery History and Physical form that has been scanned in to our electronic medical record system. 14 points review of systems completed and as stated in HPI, all other systems reviewed are negative. Social History: [id number]:current smoker P3 Smoking Amount:1/2 PPD Alcohol: currently drinks alcohol, 1/week Family History: [id number]: , blood cancer P2 Father: , coronary artery disease Sibling(s): living, coronary artery disease Family History: coronary artery disease blood cancer Past Medical History: ANXIETY/DEPRESSION COPD Surgical / Procedural History: RIGHT TOTAL HIP ARTHROPLASTY Current Medications: P1Rx: baclofen 20 mg tablet Ref: 0 Rx: DULoxetine 30 mg capsule,delayed release Ref: 0 Rx: HYDROcodone 7.5 mg-acetaminophen 325 mg tablet Ref: 0 Rx: mirtazapine 30 mg tablet Ref: 0 Rx: pantoprazole 40 mg tablet,delayed release Ref: 0 Rx: risperiDONE 3 mg tablet Ref: 0 Rx: morphine 15 mg immediate release tablet Ref: 0 Rx: Lyrica 150 mg capsule Ref: 0 Rx: morphine Ref: 0 Rx: Canton Ref: 0 Rx: Lyrica 150 mg capsule Ref: 0 PHYSICAL EXAMINATION: General:Awake, alert, appropriate for age, in no acute distress. HEENT:No unusual neck masses around region of lateral neck triangle, thyroid, supraclavicular groove Heart:Regular rate and rhythm, normal S1, S2 and no murmur/gallop. Lungs:Clear to auscultation bilaterally with no use of accessory muscles. Extremities: Skin warm and dry without acute lesions, coloration, temperature, skin intact, no tenderness or erythema Integument: Hairy patches:ABSENT Dorsal skin dimples:ABSENT Cafe au lait spots:ABSENT Palpation: Please see Pain drawing on Intake sheet for further detail. Midline spinal tenderness:No E6 Cervical Tenderness: No E6 Paralumbar tenderness:No E6 Parathoracic tenderness:No E6 Buttocks tenderness:No E6 Sacroiliac Testing: TTP Yes, right side Positive compression Neg Distraction Positive FABER4 Positive Thigh Thrust Positive Alejandro test POSTURAL and MUSCULO-SKELETAL EVALUATION: Coronal Balance: NEUTRAL Recumbent testing: Patient isable to lay flat on back Sagittal Balance: NEUTRAL Shoulder Profile: LEVEL Pelvic Girdle: LEVEL Neck ROM: UNRESTRICTED Lumbar ROM: UNRESTRICTED Shoulder ROM: Symmetrical Hip ROM: Symmetrical Knee ROM: Symmetrical Hands: Normal appearance, symmetrical Feet: Normal appearance, Symmetrical VASCULAR STATUS : LEFTRIGHT Wrist Pulses INTACT INTACT Pedal Pulses (Dors. pedis & post.tibialis) INTACT INTACT Color NORMAL NORMAL Edema Absent Absent NEUROLOGIC EXAMINATION: Mental Status:Awake and alert, fully oriented, with normal attention, concentration and memory, and fluent, appropriate speech. Cranial Nerves: I: Olfactory not tested. II: Visual acuity normal, no visual field deficit noted with confrontation. III,IV: Normal pupillary reflexes & intact extraocular movements without nystagmus. V,: Intact symmetrical facial sensation. VII: Intact symmetrical facial motor movement VIII: Hearing intact. IX,X: Intact gag, swallow, & normal voice. XI: Sternocleidomastoid, trapezius function intact. XII: Tongue midline with normal movements. L'hermitte's Sign:Negative / absent Spurling'Sign: Absent bilaterally. Cubital percussion test:Absent bilaterally. Fuentes-Tinel sign - Carpal region:Absent bilaterally. Straight Leg Raising: Absent bilaterally. Crossed straight leg raise: negative MOTOR EXAM (0-5/5, N/T Muscle appearance:Symmetrical, without signs of atrophy or dystrophy UPPER EXTREMITY RIGHT LEFT Shoulder Abduction 5/5 5/5 Biceps 5/5 5/5 Triceps 5/5 5/5 Wrist Extension 5/5 5/5 Hand Intrinsic 5/5 5/5 [employer] 5/5 5/5 Hand and finger dexterity intact bilaterally? yes Disdiadochokinesis examination negative bilaterally? yes LOWER EXTREMITY RIGHT LEFT Hip Flexion 5/5 5/5 Knee Extension 5/5 5/5 Knee Flexion 5/5 5/5 Dorsiflexion 5/5 5/5 Plantarflexion 5/5 5/5 EHL 5/5 5/5 FHL 5/5 5/5 OMI: positive Toe heel walk / heel-toe walk intact while maintaining satisfactory balance? yes Squatting/straightening w/o assistance to a min of 60 degree knee flexion? yes Single leg stance: intact Trendelenburg sign negative bilaterally REFLEXES(0-4/2, NT)Upper ExtremityLower Extremity Right 2 2 Left 2 2 Pathological Reflexes RIGHT LEFT Fuentes's Absent Absent Clonus Absent Absent Babinski Absent Absent Sensory system (0-4, N/T) Test type RU DENNISE RL LL Joint-Position 2 2 2 2 Vibration 2 2 2 2 Pain & LT sense 2 2 2 2 Dermatomal Deficit: None None None None Gait and Functional Evaluation: Ambulatory aids:Walker Romberg's test:Intact bilaterally Steady Gait RADIOGRAPHIC STUDIES : No new x-rays taken in office today. IMPRESSION: It was my pleasure to have seen and examined Oz. I reviewed the patient's clinical syndrome, physical findings, and imaging studies during the appointment today. It is my impression that the patient has a diagnosis of. 1. Right SI joint osteoarthritis 2. L5-S1 foraminal stenosis, moderate 3. Low back pain 4. Right lower extremity radiculopathy I outlined the natural course history without intervention and various interventional options. PLAN: Based on my findings I suggest the following course of action: -I have recommended that the patient undergo two right SI joint injections. The verbally understands all the risks and benefits and has elected to proceed with the injections at this time. - Ambulate daily - Take medications as directed - Ice and rest for pain and swelling control. Follow- up: After completion of two SI joint injections. Patient Education: (Informational booklet, instructions, etc) given at today's appointment: Yes .ED:Patient Education: Y Medications Reviewed: YES In our visit today Mr. Monroe and I have had a chance to go over my understanding of the patient's current condition, the natural course history without intervention and various interventional options. Questions were invited and answered, and the patient wishes to proceed as outlined above. I will be sure to keep you updated afterMr. Monroe returns here for further follow-up. Thank you again for your referral. Please do not hesitate to contact me if you have any further questions. Signed and authenticated by: Jalen Monroy [facility] [address] [facility], [address] [address] This message is confidential, intended only for the named recipient(s) and may contain information that is privileged or exempt from disclosure under applicable law. If you are not the intended recipient(s), you are notified that the dissemination, distribution or copying of this information is strictly prohibited. If you received this message in error, please notify the sender then delete this message. Patient verbalizes understanding of the information discussed. The above note was initiated by Kayli Ontiveros, physician recording certified medical assistant for Dr. Jalen Parks. This note has been reviewed by Dr. Parks, who has made his personal changes and impressions for this document. CC: Mack Fox D.O. # SIGNED BY Jalen Parks (GOO)12/07/2022 09:00AM Past Medical History Past Medical History: Chest Pain / Angina, Heart Failure, COPD, Eye Disorder, Musculoskeletal Disorder, Neurologic Disorder Additional Past Medical History / Comment(s): Multiple sclerosis USES A CANE/ walker TO AMBULATE, falls. has had in past occasional DOUBLE VISION. CHRONIC BACK, NECK PAIN. Migraine headache. Crohn's disease. lt ear [place]. History of Any Multi-Drug Resistant Organisms: None Reported, MRSA Date of last positivie culture/infection: 2014 MDRO Source:: lower back Past Surgical History: Appendectomy, Bowel Resection, Hernia Repair, Joint Replacement Additional Past Surgical History / Comment(s): CERVICAL FUSION. SPINAL STIMULATOR implantation, revision and removal. FOREIGN BODY REMOVED RT CHEST WALL AND WIRE FROM CHEST WALL (from stimulator). RT HIP REPLACED X2. Past Anesthesia/Blood Transfusion Reactions: Previous Problems w/ Anesthesia Additional Past Anesthesia/Blood Transfusion Reaction / Comment(s): STATES TAKES A LONG TIME TO WAKE UP Past Psychological History: Anxiety, Depression Smoking Status: Current every day smoker Past Alcohol Use History: None Reported Additional Past Alcohol Use History / Comment(s): Smoker Since Age 13, smoked 1ppd now down to 1/2 ppd. Past Drug Use History: Marijuana Additional Drug Use History / Comment(s): occasional marijuana smoker - Past Family History Father Family Medical History: Cancer, Diabetes Mellitus Additional Family Medical History / Comment(s): CABG-TRIPLE BYPASS, Mother Family Medical History: Cancer, CVA/TIA, Diabetes Mellitus Additional Family Medical History / Comment(s): Stroke Brother(s) Additional Family Medical History / Comment(s): cardiomyopathy Medications and Allergies Home Medications Medication Instructions Recorded Confirmed Type Baclofen [Lioresal] 20 mg PO BID 12/21/15 01/17/23 History HYDROcodone/APAP 7.5-325MG [Canton 1 tab PO BID 04/17/20 01/17/23 History 7.5-325] Pantoprazole Sodium [Protonix] 40 mg PO DAILY 04/17/20 01/17/23 History QUEtiapine [SEROquel] 50 mg PO HS 09/14/21 01/17/23 History SUMAtriptan succinate [Imitrex] 50 mg PO BID PRN 09/14/21 01/17/23 History rOPINIRole HCL [Requip] 1 mg PO HS 09/17/21 01/17/23 History Spironolactone [Aldactone] 25 mg PO DAILY #30 tab 12/26/21 01/17/23 Rx Morphine Sulfate ER [Ms Contin] 30 mg PO Q12H 03/06/22 01/17/23 History carvediloL [Coreg] 6.25 mg PO BID 04/06/22 01/17/23 History DULoxetine HCL [Cymbalta] 30 mg PO HS 08/17/22 01/17/23 History Furosemide [Lasix] 20 mg PO BID 08/17/22 01/17/23 History Losartan [Cozaar] 25 mg PO DAILY 08/17/22 01/17/23 History Mirtazapine [Remeron] 30 mg PO HS 08/17/22 12/07/22 History Tiotropium 18 Mcg/Puff [Spiriva] 2 puff INHALATION DAILY 01/17/23 01/17/23 History Aspirin [Barbour Aspirin EC] 81 mg PO DAILY 01/22/23 01/22/23 History Allergies Allergy/AdvReac Type Severity Reaction Status Date / Time lisinopril Allergy Swelling Verified 01/22/23 06:53 of the mouth Physical Examination Osteopathic Statement: *. No significant issues noted on an osteopathic structural exam other than those noted in the History and Physical/Consult. Assessment and Plan Plan: Spine Surgery Clinical and Risk Review Oz Monroe is a 57-year-old malepresenting for evaluation of right SI joint pain. It was my pleasure to have seen and examined Oz Monroe . In our visit today we have had a chance to go over subjective complaints, physical examination findings and treatments including the natural course history without intervention and various interventional options. The patients imaging demonstrates right SI sclerosis. On physical exam, Oz Monroe demonstrates positive importance finger test, positive Omi for, positive compression, positive hip thrust on the right. I have explained to the patient that as their condition progresses it will cause further neurological deficits and eventual paralysis. Based on the patients imaging, physical exam, and the rapid progression and disabling nature of their symptoms, at this time I recommend surgery in the form or a: right SI joint injection under fluoroscopic guidance. I discussed the risk and benefits of this procedure at length with Oz Monroe . The patient agreed to considered pursuing the procedure abovementioned. Prior to surgery, she should follow up with her PCP (Cardio, ID, IM etc) for clearance. Questions were invited and answered, and the patient wishes to proceed as outlined below. Currently, I am recommendin. right SI joint injection under fluoroscopic guidance 2. Follow up with PCP for surgical clearance 3. Review of surgical risks and benefits as well as an educational packet on the proposed surgical procedure. Risks: All surgical procedures come with inherent risks, including those related to positioning, anesthesia, intraoperative findings, and postoperative complications. It is important to understand that surgery does not come with any guarantee of a successful outcome as complications and adverse events are always possible. The patient was given a handout in office today discussing the surgical procedure and risks associated with the intervention, both of which were discussed with the patient. These risks include but are not limited to the following: * Experiencing same, different or even worse symptoms in back, neck, arms, or legs compared to before surgery. * Requiring further surgery or other forms of treatment presently or at some time in the future at same or other levels of the intended spine surgery. * On an extreme but fortunately relatively rare basis severe complication such as blindness, stroke, heart attack, temporary and/or permanent nerve injury, paralysis, coma, or may occur, sometimes without known explanation. * Surgical complications may include but are not limited to risk of infection, fluid accumulation in the surgical dissection site, including a seroma or hematoma, that requires additional surgery, wound drainage, bleeding, new numbness or weakness, vision changes/loss, spinal fluid leakage, non-healing and/or infected incision, headaches, difficulty or inability to swallow, hoarseness, hemopneumothorax, pneumothorax, impotence, retrograde ejaculation, vaginal dryness; injury to nerves, spinal cord, blood vessels, lymphatics or other vital organs (i.e., bowel injury, injury to the great vessels); heterotopic bone formation; complications related to the hardware such as screws, rods, cages including misplaced hardware, device failure, instrumentation at the wrong spine level, hardware fracture/breakage, or hardware loosening; vertebral failure of the spinal column above or below the newly placed hardware; retained surgical instrumentations or devices and the need for further surgery. * Medical risks of the planned spine surgery include but are not limited to generalized Infections to the whole body or local areas outside of the surgical site (sepsis), heart attack, bleeding, anaphylaxis, meningitis, seizure, epilepsy, hearing loss, burn berg, laceration of the head or other areas of the body, bruising, hypersensitivity of the skin, bladder over distension; allergic reaction; shoulder injury related to positioning; fat, blood and air clots to other areas of the body like heart, lungs, brain; failure of internal organs such as lungs, kidneys, liver and excessive bleeding. If blood transfusions are necessary, note that transfusions may cause intolerance reactions such as anaphylaxis or other complex reactions. * Despite best efforts, the results of spine surgery might not heal in terms of bone, soft tissues such as skin, fascia, ligaments, and joints. Additionally, in order to achieve best possible results, spine surgery may be carried out beyond the initially planned levels and involve decompression, fusion including insertion of hardware at levels other than the original intended area of surgical interest change some portions of the procedure in order to ensure the best possible outcomes. * With spine surgery and spinal fusion, there are different off label uses of instrumentation (devices, implants and hardware) as well as biological substances (bone morphogenic proteins, demineralized bone matrix) as well as using extra bone from allograft sources (i.e. cadaver bone) or autograft (iliac crest bone, ribs, or the spine itself). The patient has been given information about these practices and their inherent risks and benefits. The patient has had a chance to review all the listed information, has been given print outs detailing this information, and has had all his/her questions answered to their satisfaction. It was my pleasure to have seen and examined Oz Monroe . In our visit today we have had a chance to go over my understanding of our patient's current condition, the natural course history without intervention and various interventional options. Questions were invited and answered, and the patient wishes to proceed as outlined above. I have seen and examined the patient for 25 minutes and we have spent more than 50% of the time in repeat and detailed counseling about the patiet Oz Monroe and requested we proceed with the above suggested surgery and are willing to accept risks and limitations of the suggested surgery as nature of the disease process and our best attempts at treatment for the condition. Thank you again for allowing us to be part of your patient's care. Please don't hesitate to contact me if you have any further questions. Signed and authenticated by: Jalen [facility] [address] [address]
[2023-01-22] MEDS ORDERED: LIDOCAINE 2%-EPI 1:100,000 20 ML VIAL SQ ONE (07:26)
[2023-01-22] MEDS ORDERED: BUPIVACAINE (PF) 0.5% 30 ML VIAL SQ ONE (07:26)
[2023-01-22] MEDS ORDERED: methylPREDNISolone ACETATE 40 MG/ML 1 ML VIAL INTRAARTIC ONE (07:26)
--- NOTE | 2023-01-22 07:31 | P.OP ---
Date of Procedure: 01/22/23 Preoperative Diagnosis: 1. RIGHT SIJ OA Postoperative Diagnosis: 1. RIGHT SIJ OA Procedure(s) Performed: 1. RIGHT SI JOINT INJECTION UNDER FLUOROSCOPIC GUIDANCE Anesthesia: local Surgeon: Jalen Parks Estimated Blood Loss (ml): 2 IV fluids (ml): 0 Urine output (ml): 0 Pathology: none sent Condition: stable Disposition: PACU Indications for Procedure: Oz Monroe is a 57-year-old malepresenting for evaluation of right SI joint pain. It was my pleasure to have seen and examined Oz Monroe . In our visit today we have had a chance to go over subjective complaints, physical examination findings and treatments including the natural course history without intervention and various interventional options. The patients imaging demonstrates right SI sclerosis. On physical exam, Oz Monroe demonstrates positive importance finger test, positive Vadim for, positive compression, positive hip thrust on the right. I have explained to the patient that as their condition progresses it will cause further neurological deficits and eventual paralysis. Based on the patients imaging, physical exam, and the rapid progression and disabling nature of their symptoms, at this time I recommend surgery in the form or a: right SI joint injection under fluoroscopic guidance. I discussed the risk and benefits of this procedure at length with Oz Monroe . The patient agreed to considered pursuing the procedure abovementioned. Prior to surgery, she should follow up with her PCP (Cardio, ID, IM etc) for clearance. Questions were invited and answered, and the patient wishes to proceed as outlined below. Currently, I am recommendin. right SI joint injection under fluoroscopic guidance Description of Procedure: Bilateral SIJ injection The patient was seen and examined in the preoperative area. All preoperative protocols were followed. Informed consent was obtained, risks and benefits of the procedure were discussed at length. Risks including bleeding infection damage to the surrounding tissue and risk of reoperation were discussed with the patient. Risk of anesthesia up to and including was discussed with the patient. These are outlined in the risk review. They were willing to accept these risks and all of the risks of surgery. The patient was seen and evaluated by the anesthesia team who deemed them fit for surgery. The site was marked, the patient was willing to proceed with the procedure. The patient was transferred to the operative suite by the Department of anesthesia. They were then drifted off to sleep by the department anesthesia and sedation with local was performed. The patient tolerated this well. Once confirmation of lines and ventilation the patient was transferred to a prone Brian table very carefully. All bony prominences including wrists, elbows, axilla, chest, hips, and thighs, and feet were padded very well. Special attention was paid to the genitalia and these were padded accordingly. SCDs were placed on bilateral lower extremities and were connected. Arms were well padded and placed on arm boards up and out in the 90/90 position. Once in position, again we confirmed good ventilation capabilities and that lines were running appropriately. The patient's lumbopelvic spine was then exposed. 1010s were placed outlining the incision site. Standard alcohol was used to clean the incision site and allowed to dry. C-arm was used to biomark the patient and confirm level for incision which was marked with a skin marker. Operative briefing was performed with all teams and everyone in agreement to proceed. The patient was then prepped and draped in a normal sterile fashion. Timeout was then performed and all parties were in agreement with the procedure to be performed. Biplanar fluoroscopy was used to identify the RIGHT SI joints which were then accessed with a 18-gauge needle after anesthetic was placed into the subcutaneous tissue in the form of 1% with epinephrine of lidocaine along with a mixture of cortical percent Marcaine without epinephrine. Once there is good anesthesia and the SI joints were accessed Isovue was used to confirm within the joint space. Once this was confirmed 40 of Kenalog along with a mixture of lidocaine and Marcaine were injected into the SI joint. Patient remained stable the entire time without any radicular symptoms during the injection phase. The needles were withdrawn and the area cleaned and Band-Aids placed. The patient was transferred back to their hospital bed atraumatically. Patient was then awakened and extubated by the department of anesthesia having tolerated the procedure very well with no complications. They were transferred to the postoperative care unit in stable condition.
[2023-01-22 07:38] VITALS: BP 110/69; PULSE 60
--- NOTE | 2023-01-22 07:43 | FL ---
Intraoperative/procedural fluoroscopic services were provided for right SI joint injection. Total flu oroscopy time is 5 seconds with a total of 1 submitted image to PACS. Total DAP 0.5726 Gycm2. Please see the operative note for further details.
== END 2023-01-22 07:47 | disposition home or self-care (01) ==
LOC: OR 06:32
PROVIDERS: ATTEND Orthopaedic Surgery
DX: M13.88 Other specified arthritis, other site (principal); M46.1 Sacroiliitis, not elsewhere classified; Z79.891 Long term (current) use of opiate analgesic; Z79.899 Other long term (current) drug therapy; F41.9 Anxiety disorder, unspecified; F32.A Depression, unspecified; M48.061 Spinal stenosis, lumbar region without neurogenic claudication; J44.9 Chronic obstructive pulmonary disease, unspecified; I50.9 Heart failure, unspecified; G35 Multiple sclerosis; R29.6 Repeated falls; H91.90 Unspecified hearing loss, unspecified ear; G43.909 Migraine, unspecified, not intractable, without status migrainosus; K50.90 Crohn's disease, unspecified, without complications; Z86.14 Personal history of Methicillin resistant Staphylococcus aureus infection; Z90.49 Acquired absence of other specified parts of digestive tract; Z98.1 Arthrodesis status; Z96.643 Presence of artificial hip joint, bilateral; Z98.890 Other specified postprocedural states; F17.210 Nicotine dependence, cigarettes, uncomplicated; Z83.3 Family history of diabetes mellitus; Z80.9 Family history of malignant neoplasm, unspecified; Z82.3 Family history of stroke; Z79.82 Long term (current) use of aspirin; Z88.8 Allergy status to other drugs, medicaments and biological substances
CPT/HCPCS: J1030; G0260

== ENCOUNTER 2023-02-06 04:00 | Inpatient (IN) | payer MEDICARE ==
[2023-02-06] MEDS ORDERED: ONDANSETRON 4 MG/2 ML VIAL IVP STA (04:31)
[2023-02-06] MEDS ORDERED: SODIUM CHLORIDE 0.9% 1,000 ML IV STA (04:31)
[2023-02-06] MEDS ORDERED: HYDROmorphone 1 MG/ML 1 ML SYRINGE IVP STA (04:32)
--- NOTE | 2023-02-06 04:47 | ED ---
General Adult HPI - General Chief complaint: Abdominal Pain Stated complaint: Abdominal pain Time Seen by Provider: 02/06/23 04:09 Source: patient, RN notes reviewed, old records reviewed Mode of arrival: ambulatory Limitations: no limitations - History of Present Illness Initial comments: 57-year-old male presents for evaluation of generalized abdominal pain which is been present for the past several days. Approximately 10 episodes of vomiting which occurred over the past 24 hours. Patient has not been able to eat or drink anything over this time. He reports no recent bowel movement. He has history of Crohn's disease. No fever. - Related Data Home Medications Medication Instructions Recorded Confirmed Baclofen [Lioresal] 20 mg PO BID 12/21/15 01/24/23 HYDROcodone/APAP 7.5-325MG [[place] 1 tab PO BID 04/17/20 01/24/23 7.5-325] Pantoprazole Sodium [Protonix] 40 mg PO DAILY 04/17/20 01/24/23 QUEtiapine [SEROquel] 50 mg PO HS 09/14/21 01/24/23 SUMAtriptan succinate [Imitrex] 50 mg PO BID PRN 09/14/21 01/24/23 rOPINIRole HCL [Requip] 1 mg PO HS 09/17/21 01/24/23 Morphine Sulfate ER [Ms Contin] 30 mg PO Q12H 03/06/22 01/24/23 carvediloL [Coreg] 6.25 mg PO BID 04/06/22 01/24/23 DULoxetine HCL [Cymbalta] 30 mg PO HS 08/17/22 01/24/23 Furosemide [Lasix] 20 mg PO BID 08/17/22 01/24/23 Losartan [Cozaar] 25 mg PO DAILY 08/17/22 01/24/23 Mirtazapine [Remeron] 30 mg PO HS 08/17/22 01/24/23 Tiotropium 18 Mcg/Puff [Spiriva] 2 puff INHALATION DAILY 01/17/23 01/24/23 Aspirin [[place] Aspirin EC] 81 mg PO DAILY 01/22/23 01/24/23 Previous Rx's Medication Instructions Recorded Spironolactone [Aldactone] 25 mg PO DAILY #30 tab 12/26/21 Allergies Allergy/AdvReac Type Severity Reaction Status Date / Time lisinopril Allergy Swelling Verified 02/06/23 04:05 of the mouth Review of Systems ROS Statement: Those systems with pertinent positive or pertinent negative responses have been documented in the HPI. ROS Other: All systems not noted in ROS Statement are negative. Past Medical History Past Medical History: Chest Pain / Angina, Heart Failure, COPD, Eye Disorder, Musculoskeletal Disorder, Neurologic Disorder Additional Past Medical History / Comment(s): COVID 17 January-Jan 2022, Multiple sclerosis USES A CANE/ walker TO AMBULATE, falls. has had in past occasional DOUBLE VISION. CHRONIC BACK NECK PAIN. HAD SPINAL STIMULATOR, THEN REMOVED; Migraine headache. Crohn's disease.lt ear [place] History of Any Multi-Drug Resistant Organisms: None Reported, MRSA Date of last positivie culture/infection: 2014 MDRO Source:: lower back Past Surgical History: Appendectomy, Back Surgery, Bowel Resection, Hernia Repair Additional Past Surgical History / Comment(s): CERVICAL FUSION. SPINAL STIMULATOR implantation, revision and removal. FOREIGN BODY REMOVED RT CHEST WALL. 10/18/2015 wire removed from back. (from stimulator) Past Anesthesia/Blood Transfusion Reactions: Previous Problems w/ Anesthesia Additional Past Anesthesia/Blood Transfusion Reaction / Comment(s): STATES TAKES A LONG TIME TO WAKE UP Past Psychological History: Anxiety, Depression Smoking Status: Current every day smoker Past Alcohol Use History: None Reported Past Drug Use History: Marijuana - Past Family History Father Family Medical History: Cancer, Diabetes Mellitus Additional Family Medical History / Comment(s): CABG-TRIPLE BYPASS, Mother Family Medical History: Cancer, CVA/TIA, Diabetes Mellitus Additional Family Medical History / Comment(s): Stroke Brother(s) Additional Family Medical History / Comment(s): cardiomyopathy General Exam Limitations: no limitations General appearance: alert, in no apparent distress Head exam: Present: atraumatic, normocephalic Eye exam: Present: normal appearance, PERRL ENT exam: Present: mucous membranes dry Neck exam: Present: normal inspection. Absent: tenderness, meningismus Respiratory exam: Present: normal lung sounds bilaterally. Absent: respiratory distress, wheezes Cardiovascular Exam: Present: regular rate, normal rhythm GI/Abdominal exam: Present: tenderness. Absent: distended, guarding, rebound Extremities exam: Present: normal inspection, normal capillary refill Neurological exam: Present: alert, oriented X3, CN II-XII intact. Absent: motor sensory deficit Psychiatric exam: Present: normal affect, normal mood Skin exam: Present: warm, dry, intact. Absent: cyanosis, diaphoretic Course Vital Signs 02/06/23 02/06/23 04:03 06:33 Temperature 98.7 F Pulse Rate 88 70 Respiratory 18 17 Rate Blood Pressure 112/75 119/66 O2 Sat by Pulse 97 98 Oximetry Medical Decision Making - Medical Decision Making Was pt. sent in by a medical professional or institution (WINDY Perez, BUTTONER, urgent care, hospital, or long-term...) When possible be specific @ -No Did you speak to anyone other than the patient for history (EMS, parent, family, police, friend...)? What history was obtained from this source @ -No Did you review nursing and triage notes (agree or disagree)? Why? @ -I reviewed and agree with nursing and triage notes Were old charts reviewed (outside hosp., previous admission, EMS record, old EKG, old radiological studies, urgent care reports/EKG's, long-term records)? Report findings @ -No old charts were reviewed Differential Diagnosis (chest pain, altered mental status, abdominal pain women, abdominal pain men, vaginal bleeding, weakness, fever, dyspnea, syncope, headache, dizziness, GI bleed, back pain, seizure, CVA, palpatations, mental health, musculoskeletal)? @ -Dependent differential abdominal pain EKG interpreted by me (3pts min.). @ -As above X-rays interpreted by me (1pt min.). @ -None done CT interpreted by me (1pt min.). @ -[CT showing small bowel obstruction with transition point U/S interpreted by me (1pt. min.). @ -None done What testing was considered but not performed or refused? (CT, X-rays, U/S, labs)? Why? @ -None What meds were considered but not given or refused? Why? @ -None Did you discuss the management of the patient with other professionals (professionals i.e. WINDY Perez, BUTTONER, lab, RT, psych nurse, social service worker, consulting marine engineer, teacher, president and chief operating officer, rn case management)? Give summary @ -No Was smoking cessation discussed for >3mins.? @ -No Was critical care preformed (if so, how long)? @ -No Were there social determinants of health that impacted care today? How? (Homelessness, low income, unemployed, alcoholism, drug addiction, transportation, low edu. Level, literacy, decrease access to med. care, [facility], rehab)? @ -No Was there de-escalation of care discussed even if they declined (Discuss DNR or withdrawal of care, Hospice)? DNR status @ -No What co-morbidities impacted this encounter? (DM, HTN, Smoking, COPD, CAD, Cancer, CVA, ARF, Chemo, Hep., AIDS, mental health diagnosis, sleep apnea, morbid obesity)? @ -[Crohn's disease Was patient admitted / discharged? Hospital course, mention meds given and route, prescriptions, significant lab abnormalities, going to OR and other pertinent info. @ 57-year-old male with vomiting and abdominal pain, concern for bowel obstr uction. CT does confirm small bowel obstruction. He has a elevated white blood cell count, stable hemoglobin, normal lactic acid, normal electrolytes. Patient will be kept nothing by mouth, NG tube will be placed in the emergency department. He'll be admitted to internal medicine with general surgery on consult. Antibiotics have been initiated as well. Undiagnosed new problem with uncertain prognosis? @ -No Drug Therapy requiring intensive monitoring for toxicity (Heparin, Nitro, Insulin, Cardizem)? @ -No Were any procedures done? @ -No Diagnosis/symptom? @ -Small bowel obstruction Acute, or Chronic, or Acute on Chronic? @ Acute Uncomplicated (without systemic symptoms) or Complicated (systemic symptoms)? @ -default Side effects of treatment? @ -No Exacerbation, Progression, or Severe Exacerbation? @ -No Poses a threat to life or bodily function? How? (Chest pain, [place], [place], pneumonia, PE, COPD, DKA, ARF, appy, cholecystitis, CVA, Diverticulitis, Homicidal, Anel cidal, threat to staff... and all critical care pts) @ -[Yes, dehydration, ischemic bowel - Lab Data Result diagrams: 02/06/23 04:34 02/06/23 04:34 Lab Results 02/06/23 02/06/23 02/06/23 Range/Units 04:34 04:34 04:34 WBC 15.1 H (3.8-10.6) k/uL RBC 4.92 (4.30-5.90) m/uL Hgb 16.1 (13.0-17.5) gm/dL Hct 47.4 (39.0-53.0) % MCV 96.5 (80.0-100.0) fL MCH 32.8 (25.0-35.0) pg MCHC 34.0 (31.0-37.0) g/dL RDW 12.7 (11.5-15.5) % Plt Count 331 (150-450) k/uL MPV 8.0 Neutrophils % 82 % Lymphocytes % 10 % Monocytes % 5 % Eosinophils % 1 % Basophils % 0 % Neutrophils # 12.4 H (1.3-7.7) k/uL Lymphocytes # 1.5 (1.0-4.8) k/uL Monocytes # 0.8 (0-1.0) k/uL Eosinophils # 0.2 (0-0.7) k/uL Basophils # 0.0 (0-0.2) k/uL PT 9.4 (9.0-12.0) sec INR 0.9 (<1.2) APTT 24.3 (22.0-30.0) sec Sodium 136 L (137-145) mmol/L Potassium 4.5 (3.5-5.1) mmol/L Chloride 102 (98-107) mmol/L Carbon Dioxide 23 (22-30) mmol/L Anion Gap 11 mmol/L BUN 12 (9-20) mg/dL Creatinine 0.74 (0.66-1.25) mg/dL Est GFR (CKD-EPI)AfAm >90 (>60 ml/min/1.73 sqM) Est GFR (CKD-EPI)NonAf >90 (>60 ml/min/1.73 sqM) Glucose 149 H (74-99) mg/dL Plasma Lactic Acid Phong (0.7-2.0) mmol/L Calcium 9.9 (8.4-10.2) mg/dL Total Bilirubin 0.7 (0.2-1.3) mg/dL AST 28 (17-59) U/L ALT 17 (4-49) U/L Alkaline Phosphatase 114 (38-126) U/L Total Protein 7.6 (6.3-8.2) g/dL Albumin 4.5 (3.5-5.0) g/dL Amylase 59 (30-110) U/L Lipase 29 (23-300) U/L 02/06/23 Range/Units 04:34 WBC (3.8-10.6) k/uL RBC (4.30-5.90) m/uL Hgb (13.0-17.5) gm/dL Hct (39.0-53.0) % MCV (80.0-100.0) fL MCH (25.0-35.0) pg MCHC (31.0-37.0) g/dL RDW (11.5-15.5) % Plt Count (150-450) k/uL MPV Neutrophils % % Lymphocytes % % Monocytes % % Eosinophils % % Basophils % % Neutrophils # (1.3-7.7) k/uL Lymphocytes # (1.0-4.8) k/uL Monocytes # (0-1.0) k/uL Eosinophils # (0-0.7) k/uL Basophils # (0-0.2) k/uL PT (9.0-12.0) sec INR (<1.2) APTT (22.0-30.0) sec Sodium (137-145) mmol/L Potassium (3.5-5.1) mmol/L Chloride (98-107) mmol/L Carbon Dioxide (22-30) mmol/L Anion Gap mmol/L BUN (9-20) mg/dL Creatinine (0.66-1.25) mg/dL Est GFR (CKD-EPI)AfAm (>60 ml/min/1.73 sqM) Est GFR (CKD-EPI)NonAf (>60 ml/min/1.73 sqM) Glucose (74-99) mg/dL Plasma Lactic Acid [place] 0.9 (0.7-2.0) mmol/L Calcium (8.4-10.2) mg/dL Total Bilirubin (0.2-1.3) mg/dL AST (17-59) U/L ALT (4-49) U/L Alkaline Phosphatase (38-126) U/L Total Protein (6.3-8.2) g/dL Albumin (3.5-5.0) g/dL Amylase (30-110) U/L Lipase (23-300) U/L Disposition Clinical Impression: Small bowel obstruction Disposition: ADMITTED IP TO THIS [facility] Condition: Stable Is patient prescribed a controlled substance at d/c from ED?: No Referrals: Mack Fox DO [Primary Care Provider] - 1-2 days Time of Disposition: 06:53
[2023-02-06 04:58] LABS: Basophils % (A) 0 %; Eosinophils # (A) 0.2 k/uL (0-0.7); Eosinophils % (A) 1 %; HCT 47.4 % (39.0-53.0); HGB 16.1 gm/dL (13.0-17.5); Lymphocytes # (A) 1.5 k/uL (1.0-4.8); Lymphocytes % (A) 10 %; MCH 32.8 pg (25.0-35.0); MCV 96.5 fL (80.0-100.0); Monocytes # (A) 0.8 k/uL (0-1.0); Monocytes % (A) 5 %; Neutrophils # (A) 12.4 k/uL (1.3-7.7); Neutrophils % (A) 82 %; Platelet Count 331 k/uL (150-450); RBC 4.92 m/uL (4.30-5.90); RDW 12.7 % (11.5-15.5); WBC 15.1 k/uL (3.8-10.6)
[2023-02-06 05:12] LABS: INR 0.9 (<1.2); Partial Thromboplastin Time 24.3 sec (22.0-30.0); Prothrombin Time 9.4 sec (9.0-12.0)
[2023-02-06 05:16] LABS: ALT 17 U/L (4-49); AST 28 U/L (17-59); African American GFR (CKD) >90 (>60 ml/min/1.73 sqM); Albumin 4.5 g/dL (3.5-5.0); Alkaline Phosphatase 114 U/L (38-126); Amylase 59 U/L (30-110); Anion Gap 11 mmol/L; Blood Urea Nitrogen 12 mg/dL (9-20); Calcium 9.9 mg/dL (8.4-10.2); Carbon Dioxide 23 mmol/L (22-30); Chloride 102 mmol/L (98-107); Glucose 149 mg/dL (74-99); Lipase 29 U/L (23-300); Non-African American GFR(CKD) >90 (>60 ml/min/1.73 sqM); Potassium 4.5 mmol/L (3.5-5.1); Sodium 136 mmol/L (137-145); Total Bilirubin 0.7 mg/dL (0.2-1.3); Total Protein 7.6 g/dL (6.3-8.2)
--- NOTE | 2023-02-06 06:49 | CT ---
EXAMINATION TYPE: CT abdomen pelvis w con DATE OF EXAM: 02/06/2023 COMPARISON: 10/23/2022 HISTORY: abdominal pain CONTRAST: CT scan of the abdomen and pelvis is performed without Oral Contrast and with IV Contrast, patient in jected with 100 mL of Isovue 300. FINDINGS: LUNG BASES-: No visible nodule. No infiltrate. LIVER/GB: No calcified gallstones. The gallbladder is distended 0.2 cm. There is scattered hepatic cysts noted the largest identified near the dome of the liver measuring 1.6 cm. No solid space occup prosper hepatic lesion. Biliary tree is of normal caliber. PANCREAS: No inflammation. No distinct mass. SPLEEN: No splenic enlargement. No lesion seen. ADRENALS: No nodule. No thickening. KIDNEYS/BLADDER: No hydronephrosis. No nephrolithiasis. Right-sided renal cortical cyst measuring 1 .1 cm. Urinary bladder grossly unremarkable. BOWEL: Postoperative sutures are seen in the region of the cecum. Nonvisualization of the appendix. T here are dilated loops of small bowel noted with air-fluid level seen measuring up to 4.1 cm. Right l ower quadrant transition noted axial image 54 sequence 201 and coronal image 40 sequence 202. Suspect underlying adhesions resulting in small bowel obstruction. GENITAL ORGANS: Note is made of right-sided hydrocele. LYMPH NODES: No greater than 1cm abdominal or pelvic lymph nodes are appreciated. AORTA: No significant abnormality. OSSEOUS STRUCTURES: There is right hip prosthesis identified. Severe degenerative change L5-S1 with v acuum discs. OTHER: Focal calcification right lower quadrant redemonstrated. IMPRESSION: 1. Distal small bowel obstruction as discussed above likely secondary to adhesions from prior surgery at the level of the cecum.
[2023-02-06] MEDS ORDERED: ONDANSETRON 4 MG/2 ML VIAL IVP PRN (06:50)
[2023-02-06] MEDS ORDERED: NALOXONE 0.4 MG/ML 1 ML VIAL IV PRN (06:50)
[2023-02-06] MEDS: SODIUM CHLORIDE 0.9% 1,000 ML IV SCH ×2 (07:20→23:01)
[2023-02-06] MEDS: PIPERACILLIN-TAZOBACTAM 3.375 GM in SODIUM CHLORIDE 0.9% 100 ML IVPB SCH ×2 (07:21→15:14)
--- NOTE | 2023-02-06 13:26 | P.HPIM ---
History of Present Illness H&P Date: 02/06/23 Chief Complaint: Abdominal pain, nausea vomiting This is a 57-year-old gentleman with past medical history significant for recent partial small bowel obstruction in September 2022 with conservative management recommended per general surgery ,Crohn's-last exacerbation 10 years ago, anemia ,ongoing nicotine dependence, occasional marijuana ,multi-valvular disease, nonischemic cardiomyopathy, cardiac catheterization 01/13/2022 reporting normal coronary arteries pneumonia, multiple sclerosis, chronic back/neck pain and multiple other medical issues, presented to the ER with with stomach pain over the last couple of days that continued to worsen with nausea and vomiting that began yesterday. No bowel movement, no flatus. No abdominal distention. Diffuse abdominal pain worse on the right. Denies fever or chills. Denies chest pain, palpitations or shortness of breath. CT abdomen and pelvis reporting distal small bowel obstruction, likely secondary to adhesions from prior surgery at the level of the cecum. Maintained on IV fluid hydration,pain management and bowel rest. Surgery consult in place, recommendations pending. Afebrile, WBC 15.1, hemoglobin 16.1, platelets 331, INR 0.9. Sodium 136 potassium 4.5 bicarb 23, BUN 12, creatinine 0.74. Glucose 149. LFTs within normal limits. Lipase 29. Review of Systems ROS Statement: Those systems with pertinent positive or pertinent negative responses have been documented in the HPI. ROS Other: All systems not noted in ROS Statement are negative. Past Medical History Past Medical History: Chest Pain / Angina, Heart Failure, COPD, Eye Disorder, Musculoskeletal Disorder, Neurologic Disorder Additional Past Medical History / Comment(s): COVID 17 January-Jan 2022, Multiple sclerosis USES A CANE/ walker TO AMBULATE, falls. has had in past occasional DOUBLE VISION. CHRONIC BACK NECK PAIN. HAD SPINAL STIMULATOR, THEN REMOVED; Migraine headache. Crohn's disease.lt ear [place] History of Any Multi-Drug Resistant Organisms: None Reported, MRSA Date of last positivie culture/infection: 2014 MDRO Source:: lower back Past Surgical History: Appendectomy, Back Surgery, Bowel Resection, Hernia Repair Additional Past Surgical History / Comment(s): CERVICAL FUSION. SPINAL STIMULATOR implantation, revision and removal. FOREIGN BODY REMOVED RT CHEST WALL. 10/18/2015 wire removed from back. (from stimulator) Past Anesthesia/Blood Transfusion Reactions: Previous Problems w/ Anesthesia Additional Past Anesthesia/Blood Transfusion Reaction / Comment(s): STATES TAKES A LONG TIME TO WAKE UP Past Psychological History: Anxiety, Depression Smoking Status: Current every day smoker Past Alcohol Use History: None Reported Past Drug Use History: Marijuana - Past Family History Father Family Medical History: Cancer, Diabetes Mellitus Additional Family Medical History / Comment(s): CABG-TRIPLE BYPASS, Mother Family Medical History: Cancer, CVA/TIA, Diabetes Mellitus Additional Family Medical History / Comment(s): Stroke Brother(s) Additional Family Medical History / Comment(s): cardiomyopathy Medications and Allergies Home Medications Medication Instructions Recorded Confirmed Type Baclofen [Lioresal] 20 mg PO BID 12/21/15 02/06/23 History HYDROcodone/APAP 7.5-325MG [[place] 1 tab PO BID 04/17/20 02/06/23 History 7.5-325] Pantoprazole Sodium [Protonix] 40 mg PO DAILY 04/17/20 02/06/23 History QUEtiapine [SEROquel] 50 mg PO HS 09/14/21 02/06/23 History SUMAtriptan succinate [Imitrex] 50 mg PO BID PRN 09/14/21 02/06/23 History rOPINIRole HCL [Requip] 1 mg PO HS 09/17/21 02/06/23 History Spironolactone [Aldactone] 25 mg PO DAILY #30 tab 12/26/21 02/06/23 Rx Morphine Sulfate ER [Ms Contin] 30 mg PO Q12H 03/06/22 02/06/23 History carvediloL [Coreg] 6.25 mg PO BID 04/06/22 02/06/23 History DULoxetine HCL [Cymbalta] 30 mg PO HS 08/17/22 02/06/23 History Furosemide [Lasix] 20 mg PO BID 08/17/22 02/06/23 History Losartan [Cozaar] 25 mg PO DAILY 08/17/22 02/06/23 History Mirtazapine [Remeron] 30 mg PO HS 08/17/22 02/06/23 History Tiotropium 18 Mcg/Puff [Spiriva] 2 puff INHALATION DAILY 01/17/23 02/06/23 History Aspirin [[place] Aspirin EC] 81 mg PO DAILY 01/22/23 02/06/23 History Allergies Allergy/AdvReac Type Severity Reaction Status Date / Time lisinopril Allergy Swelling Verified 02/06/23 07:28 of the mouth Physical Exam Vitals: Vital Signs Temp Pulse Resp BP Pulse Ox 02/06/23 11:00 69 18 113/67 95 02/06/23 09:15 72 18 115/60 95 02/06/23 07:25 79 16 106/79 96 02/06/23 06:33 70 17 119/66 98 02/06/23 04:03 98.7 F 88 18 112/75 97 Intake and Output 02/05/23 02/06/23 02/06/23 22:59 06:59 14:59 Other: Weight 86.183 kg PHYSICAL EXAM: VITAL SIGNS: As above GENERAL: Sitting up in bed, no acute distress HEENT: Normocephalic, atraumatic Conjunctivae normal. eyes normal. NECK: Supple, No JVD. No thyroid enlargement. No LNs CARDIOVASCULAR: S1, S2 regular.systolic murmur. RESPIRATION: Unlabored, Breath sounds diminished in the bases. ABDOMEN: Soft, nondistended, diffuse tenderness, greater on the right lower quadrant. No guarding. no masses palpable. No ascites, No hepatosplenomegaly.Bowel sounds heard. LEGS: No edema. no swelling PSYCHIATRY: Alert and oriented X3, mood and affect normal. NERVOUS SYSTEM: Cranial N 2-12 grossly normal. No focal deficits. Strength and sensation grossly intact. Skin: Warm and dry, no rash Results CBC & Chem 7: 02/06/23 04:34 02/06/23 04:34 Labs: Abnormal Lab Results - Last 24 Hours (Table) 02/06/23 02/06/23 Range/Units 04:34 04:34 WBC 15.1 H (3.8-10.6) k/uL Neutrophils # 12.4 H (1.3-7.7) k/uL Sodium 136 L (137-145) mmol/L Glucose 149 H (74-99) mg/dL Assessment and Plan Assessment: Abdominal pain with nausea and vomiting , recent Partial distal small bowel obstruction per CT on 10/22 with conservative management recommended by general surgery. Small bowel obstruction reported per CT. History of Crohn's disease, last exacerbation approximately 10 years ago COPD History of Covid 19 infection in March 2022 History of migraines Chronic pain syndrome Moderate mitral regurgitation. History of nonischemic cardiomyopathy, ejection fraction 40-45% Normal coronary arteries per cardiac catheterization 01/13/2022 Plan:Continue on current medication regime ,monitoring and symptomatic treatment. IV fluid hydration,NPO-Bowel rest. General surgery consult in place, recommendations pending. Maintain supportive care. The impression and plan of care has been dictated as directed. : I performed a history and examination of this patient, discussed the same with the dictator. I agree with the dictator's note ,documented as a scribe. Any additional findings or plans will be noted.
[2023-02-06] MEDS: HYDROmorphone 1 MG/ML 1 ML SYRINGE IVP PRN ×3 (13:47→20:03)
[2023-02-06 14:48] LABS: Appearance,Urine Clear (Clear); Bilirubin,Urine Negative (Negative); Blood,Urine Negative (Negative); Color,Urine Yellow; Glucose,Urine (UA) Negative (Negative); Ketones,Urine Negative (Negative); Leukocyte Esterase,Urine Negative (Negative); Nitrite,Urine Negative (Negative); Protein,Urine Negative (Negative); Urobilinogen,Urine <2.0 mg/dL (<2.0)
[2023-02-06 14:52] LABS: Specific Gravity,Urine >1.050 (1.001-1.035)
[2023-02-06] MEDS: carvediloL 6.25 MG TAB PO SCH (21:27)
[2023-02-06] MEDS: QUEtiapine 50 MG TAB PO SCH (21:28)
[2023-02-06] MEDS: HYDROcodone/APAP 7.5-325MG 1 EACH TAB PO SCH (21:28)
[2023-02-06] MEDS: DULoxetine HCL 30 MG CAPSULE.DR PO SCH (21:28)
[2023-02-06] MEDS: MIRTAZAPINE 15 MG TAB PO SCH (21:28)
[2023-02-06] MEDS: BACLOFEN 10 MG TAB PO SCH (21:28)
[2023-02-06] MEDS: MORPHINE SULFATE ER 30 MG TABLET PO SCH (21:30)
[2023-02-07] MEDS: PIPERACILLIN-TAZOBACTAM 3.375 GM in SODIUM CHLORIDE 0.9% 100 ML IVPB SCH ×4 (00:08→23:44)
[2023-02-07] MEDS: HYDROmorphone 1 MG/ML 1 ML SYRINGE IVP PRN ×6 (01:46→20:29)
[2023-02-07] MEDS: PANTOPRAZOLE 40 MG TABLET PO SCH (05:13)
[2023-02-07] MEDS: carvediloL 6.25 MG TAB PO SCH ×2 (05:13→17:28)
[2023-02-07] MEDS: IPRATROPIUM 0.5 MG/2.5 ML NEBU INHALATION SCH ×4 (07:54→20:17)
[2023-02-07] MEDS: BACLOFEN 10 MG TAB PO SCH ×2 (08:05→21:45)
[2023-02-07] MEDS: HYDROcodone/APAP 7.5-325MG 1 EACH TAB PO SCH ×2 (08:05→21:45)
[2023-02-07] MEDS: MORPHINE SULFATE ER 30 MG TABLET PO SCH ×2 (08:06→21:45)
[2023-02-07] MEDS: LOSARTAN 25 MG TAB PO SCH (08:08)
[2023-02-07] MEDS: SODIUM CHLORIDE 0.9% 1,000 ML IV SCH ×2 (11:35→20:30)
--- NOTE | 2023-02-07 11:50 | XR ---
EXAMINATION TYPE: XR chest 1V DATE OF EXAM: 02/07/2023 11:31 AM COMPARISON: Chest radiographs from 08/18/2022 TECHNIQUE: XR chest 1V . CLINICAL INDICATION:Male, 57 years old with history of check for NGT placement; FINDINGS: Lungs/Pleura: There is no evidence of pleural effusion, focal consolidation, or pneumothorax. Bibasi lar subsegmental atelectasis. Hyperinflation with suspected blebs or bulla at the right apex. Periphe ral pleural-based calcification redemonstrated in the periphery of the left upper lung. Pulmonary vascularity: Unremarkable. Heart/mediastinum: Cardiomediastinal silhouette is unremarkable. Musculoskeletal: No acute osseous pathology. Partial visualization of cervical fusion hardware. Other findings: None Lines/Tubes: Nasogastric tube demonstrated with distal tip just past the GE junction however sidehole is in the lo wer esophagus. IMPRESSION: 1. Nasogastric tube demonstrated with distal tip just past the GE junction however sidehole is in th e lower esophagus. Recommend advancement of 7 cm. 2. COPD changes with bibasilar subsegmental atelectasis.
[2023-02-07 13:32] LABS: HCT 37.8 % (39.0-53.0); MCH 31.7 pg (25.0-35.0); MCV 98.8 fL (80.0-100.0); Mean Platelet Volume 7.9; Platelet Count 244 k/uL (150-450); RBC 3.83 m/uL (4.30-5.90); RDW 12.8 % (11.5-15.5); WBC 7.9 k/uL (3.8-10.6)
[2023-02-07 13:33] LABS: African American GFR (CKD) >90 (>60 ml/min/1.73 sqM); Anion Gap 5 mmol/L; Blood Urea Nitrogen 9 mg/dL (9-20); Calcium 8.4 mg/dL (8.4-10.2); Carbon Dioxide 25 mmol/L (22-30); Chloride 107 mmol/L (98-107); Glucose 76 mg/dL (74-99); HGB 12.1 gm/dL (13.0-17.5); Non-African American GFR(CKD) >90 (>60 ml/min/1.73 sqM); Potassium 3.9 mmol/L (3.5-5.1); Sodium 137 mmol/L (137-145)
[2023-02-07] MEDS: methylPREDNISolone SOD SUCCI 40 MG/ML 1 ML VIAL IV SCH ×2 (14:13→23:43)
--- NOTE | 2023-02-07 14:59 | P.PN ---
Subjective Progress Note Date: 02/07/23 H&P Date: 02/06/23 Chief Complaint: Abdominal pain, nausea vomiting This is a 57-year-old gentleman with past medical history significant for recent partial small bowel obstruction in September 2022 with conservative management recommended per general surgery ,Crohn's-last exacerbation 10 years ago, anemia ,ongoing nicotine dependence, occasional marijuana ,multi-valvular disease, nonischemic cardiomyopathy, cardiac catheterization 01/13/2022 reporting normal coronary arteries pneumonia, multiple sclerosis, chronic back/neck pain and multiple other medical issues, presented to the ER with with stomach pain over the last couple of days that continued to worsen with nausea and vomiting that began yesterday. No bowel movement, no flatus. No abdominal distention. Diffuse abdominal pain worse on the right. Denies fever or chills. Denies chest pain, palpitations or shortness of breath. CT abdomen and pelvis reporting distal small bowel obstruction, likely secondary to adhesions from prior surgery at the level of the cecum. Maintained on IV fluid hydration,pain management and bowel rest. Surgery consult in place, recommendations pending. Afebrile, WBC 15.1, hemoglobin 16.1, platelets 331, INR 0.9. Sodium 136 potassium 4.5 bicarb 23, BUN 12, creatinine 0.74. Glucose 149. LFTs within normal limits. Lipase 29. 02/17/2023 NPO, maintained on IV fluid hydration, Zosyn. Complains of right lower quadrant pain-significant but improving. No further nausea or vomiting. Reports small soft bowel movement this morning- did not notice the color. NG tube with bilious drainage. Ambulating in room. Surgical evaluation pending. Afebrile, WBC/ Labs pending. Denies chest pain, palpitations or shortness of breath, maintaining O2 sats in the 90s on room air. Objective - Vital Signs Vital signs: Vital Signs Temp 98.3 F 02/07/23 06:58 Pulse 70 02/07/23 11:40 Resp 16 02/07/23 06:58 BP 111/68 02/07/23 06:58 Pulse Ox 92 L 02/07/23 06:58 FiO2 Intake & Output 02/06/23 02/07/23 02/07/23 18:59 06:59 18:59 Intake Total 480 400 Output Total 10 Balance 480 390 Weight 86.183 kg Intake: Intake, IV Titration 400 Amount Piperacillin-Tazobactam 3 100 .375 gm In Sodium Chloride 0.9% 100 ml @ 25 mls/hr IVPB Q8HR [facility] Rx# :[id number] Sodium Chloride 0.9% 1, 300 000 ml @ 75 mls/hr IV . [id number] [facility] Rx#:[id number] Oral 480 Output: Gastric Drainage 10 Other: Voiding Method Toilet # Voids 2 - Exam PHYSICAL EXAM: VITAL SIGNS: As above GENERAL: Alert and oriented 3, Sitting up in bed, no acute distress HEENT: Normocephalic, atraumatic Conjunctivae normal. eyes normal. NG tube present with bilious drainage. NECK: Supple, No JVD. CARDIOVASCULAR: S1, S2 regular.systolic murmur. RESPIRATION: Unlabored, Breath sounds diminished in the bases. ABDOMEN: Soft, nondistended, decreasing diffuse tenderness, greater on the right lower quadrant. No guarding. +BS. LEGS: No edema. no swelling NERVOUS SYSTEM: Cranial N 2-12 grossly normal. No focal deficits. Strength and sensation grossly intact. Skin: Warm and dry, no rash - Labs CBC & Chem 7: 02/07/23 13:10 02/07/23 13:10 Labs: Abnormal Lab Results - Last 24 Hours (Table) 02/06/23 Range/Units 04:34 Ur Specific [place] >1.050 H (1.001-1.035) Assessment and Plan Assessment: Abdominal pain with nausea and vomiting , recent Partial distal small bowel obstruction per CT on 10/22 with conservative management recommended by general surgery. Small bowel obstruction reported per CT. possible acute Crohn's exacerbation As per general surgery. Atelectasis secondary to the above. History of Crohn's disease, last exacerbation approximately 10 years ago COPD History of Covid 19 infection in March 2022 History of migraines Chronic pain syndrome Moderate mitral regurgitation. History of nonischemic cardiomyopathy, ejection fraction 40-45% Normal coronary arteries per cardiac catheterization 01/13/2022 Plan:Continue on current medication regime ,monitoring and symptomatic julio tment. Labs pending. Maintain IV fluid hydration,NPO-Bowel rest, NG tube. General surgery consult in place, steroids initiated Aggressive pulmonary toileting with incentive spirometer ordered. Increase ambulation as tolerated. The impression and plan of care has been dictated as directed. : I performed a history and examination of this patient, discussed the same with the dictator. I agree with the dictator's note ,documented as a scribe. Any additional findings or plans will be noted.
--- NOTE | 2023-02-07 16:25 | P.GSCN ---
History of Present Illness Consult date: 02/07/23 History of present illness: CHIEF COMPLAINT: Abdominal pain HISTORY OF PRESENT ILLNESS: This is a 57-year-old male who presented with lower abdominal pain that started about 3 days ago. He was having nausea and vomiting. The emesis was stool color. Patient has been dealing with constipation and has several days without a bowel movement. Patient reports having prior small bowel obstructions. Computer reports will small bowel obstruction treated conservatively in September 2022. Patient reports he had a small bowel obstruction about 3 weeks ago. Again treated conservatively. Patient does have a surgical history of appendectomy bowel resection for his Crohn's about 20 years ago at [facility] and he's had a hiatal hernia and inguinal hernia repair. Patient does have history of Crohn's currently not on any medications. Patient admitted to the hospital for small bowel obstruction. Computed tomography scan had showed distal small bowel obstruction secondary to adhesion at level of the cecum. Patient had NG tube placed with minimal output. Last colonoscopy was in October 2020 and had shown colon polyps. Patient did have a small bowel movement and flatus this morning. However he continues to complain of lower abdominal pain. Patient does take narcotics at home. PAST MEDICAL HISTORY: See list. CHF, multiple sclerosis, Crohn's PAST SURGICAL HISTORY: See list. MEDICATIONS: See list. ALLERGIES: See list. SOCIAL HISTORY: No illicit drug use. REVIEW OF SYSTEMS: CONSTITUTIONAL: Denies fever or chills. HEENT: Denies blurred vision, vision changes, or eye pain. Denies hemoptysis ENDOCRINE: Denies heat or cold intolerance. CARDIOVASCULAR: Denies chest pain or pressure. RESPIRATORY: No shortness of breath. GASTROINTESTINAL: Please refer to HPI NEURO: Denies history of seizures. PSYCH: No depression or suicidal ideation HEMATOLOGIC: Denies bleeding disorders. LYMPHATIC: The patient denies any lumps and bumps around the neck. GENITOURINARY: Denies any blood in urine or increased urinary frequency. MUSCULOSKELETAL: Denies myalgias. Denies joint swelling. Denies decreased range of motion beyond patients baseline. SKIN: Denies pruitis. Denies rash. PHYSICAL EXAM: VITAL SIGNS: Reviewed GENERAL: Well-developed in no acute distress. HEENT: No sclera icterus. Extraocular movements grossly intact. Moist buccal mucosa. Head is atraumatic, normocephalic. Hears conversational speech. No nasal drainage. NECK: Supple without lymphadenopathy. CHEST: Non-labored respirations and equal bilateral excursions. CARDIOVASCULAR: Palpable 2+ radial pulses. ABDOMEN: Soft. Mildly distended. Tenderness to palpation across the lower abdomen MUSCULOSKELETAL: No clubbing or cyanosis. NEUROLOGIC: No focal or lateralizing signs. Cranial nerves II through XII grossly intact. PSYCH: Appropriate affect. Alert and oriented to person, place and time. SKIN: Well perfused. Good skin turgor. LABORATORY DATA: WBC 15.1 down to 7.9 Hgb 12.1 platelets 244 Sodium 137 potassium 3.9 creatinine 0.65 Lactic acid 0.9 IMAGING: Computed tomography scan abdomen and pelvis distal small bowel obstruction likely secondary to adhesions from prior surgery at the level of cecum ASSESSMENT: 1. Distal small bowel obstruction 2. Crohn's exacerbation 3. History of abdominal surgeries PLAN: -Continue NG tube for decompression. X-ray ordered for placement of NG tube. NG tube was advanced 7cm -Keep patient nothing by mouth except for ice chips -IV steroids initiated for Crohn's exacerbation -Recommend conservative management Physician Coin Rolling Machine Operator note has been reviewed by physician. Signing provider agrees with the documented findings, assessment, and plan of care. Past Medical History Past Medical History: Chest Pain / Angina, Heart Failure, COPD, Eye Disorder, Musculoskeletal Disorder, Neurologic Disorder Additional Past Medical History / Comment(s): COVID 17 January-Jan 2022, Multiple sclerosis USES A CANE/ walker TO AMBULATE, falls. has had in past occasional DOUBLE VISION. CHRONIC BACK NECK PAIN. HAD SPINAL STIMULATOR, THEN REMOVED; Migraine headache. Crohn's disease.lt ear [id number] History of Any Multi-Drug Resistant Organisms: None Reported, MRSA Year Discovered:: 2014 MDRO Source:: lower back Past Surgical History: Appendectomy, Back Surgery, Bowel Resection, Hernia Repair Additional Past Surgical History / Comment(s): CERVICAL FUSION. SPINAL STIMULATOR implantation, revision and removal. FOREIGN BODY REMOVED RT CHEST WALL. 10/18/2015 wire removed from back. (from stimulator) Past Anesthesia/Blood Transfusion Reactions: Previous Problems w/ Anesthesia Additional Past Anesthesia/Blood Transfusion Reaction / Comm: STATES TAKES A LONG TIME TO WAKE UP Past Psychological History: Anxiety, Depression Smoking Status: Current every day smoker Past Alcohol Use History: None Reported Past Drug Use History: Marijuana - Past Family History Father Family Medical History: Cancer, Diabetes Mellitus Additional Family Medical History / Comment(s): CABG-TRIPLE BYPASS, Mother Family Medical History: Cancer, CVA/TIA, Diabetes Mellitus Additional Family Medical History / Comment(s): Stroke Brother(s) Additional Family Medical History / Comment(s): cardiomyopathy Medications and Allergies Home Medications Medication Instructions Recorded Confirmed Type Baclofen [Lioresal] 20 mg PO BID 12/21/15 02/06/23 History HYDROcodone/APAP 7.5-325MG [[place] 1 tab PO BID 04/17/20 02/06/23 History 7.5-325] Pantoprazole Sodium [Protonix] 40 mg PO DAILY 04/17/20 02/06/23 History QUEtiapine [SEROquel] 50 mg PO HS 09/14/21 02/06/23 History SUMAtriptan succinate [Imitrex] 50 mg PO BID PRN 09/14/21 02/06/23 History rOPINIRole HCL [Requip] 1 mg PO HS 09/17/21 02/06/23 History Spironolactone [Aldactone] 25 mg PO DAILY #30 tab 12/26/21 02/06/23 Rx Morphine Sulfate ER [Ms Contin] 30 mg PO Q12H 03/06/22 02/06/23 History carvediloL [Coreg] 6.25 mg PO BID 04/06/22 02/06/23 History DULoxetine HCL [Cymbalta] 30 mg PO HS 08/17/22 02/06/23 History Furosemide [Lasix] 20 mg PO BID 08/17/22 02/06/23 History Losartan [Cozaar] 25 mg PO DAILY 08/17/22 02/06/23 History Mirtazapine [Remeron] 30 mg PO HS 08/17/22 02/06/23 History Tiotropium 18 Mcg/Puff [Spiriva] 2 puff INHALATION DAILY 01/17/23 02/06/23 History Aspirin [Renick Aspirin EC] 81 mg PO DAILY 01/22/23 02/06/23 History Allergies Allergy/AdvReac Type Severity Reaction Status Date / Time lisinopril Allergy Swelling Verified 02/06/23 07:28 of the mouth Surgical - Exam Vital Signs Temp Pulse Resp BP Pulse Ox 98.7 F 88 18 112/75 97 02/06/23 04:03 02/06/23 04:03 02/06/23 04:03 02/06/23 04:03 02/06/23 04:03 Results - Labs 02/07/23 13:10 02/07/23 13:10 Abnormal Lab Results - Last 24 Hours (Table) 02/06/23 Range/Units 04:34 Ur Specific [place] >1.050 H (1.001-1.035)
[2023-02-07] MEDS: QUEtiapine 50 MG TAB PO SCH (21:44)
[2023-02-07] MEDS: DULoxetine HCL 30 MG CAPSULE.DR PO SCH (21:44)
[2023-02-07] MEDS: MIRTAZAPINE 15 MG TAB PO SCH (21:45)
[2023-02-08] MEDS: PANTOPRAZOLE 40 MG TABLET PO SCH (06:08)
[2023-02-08] MEDS: HYDROmorphone 1 MG/ML 1 ML SYRINGE IVP PRN ×2 (06:08→12:06)
[2023-02-08] MEDS: carvediloL 6.25 MG TAB PO SCH ×2 (06:08→17:05)
[2023-02-08] MEDS: MORPHINE SULFATE ER 30 MG TABLET PO SCH ×2 (07:31→21:25)
[2023-02-08] MEDS: LOSARTAN 25 MG TAB PO SCH (07:31)
[2023-02-08] MEDS: HYDROcodone/APAP 7.5-325MG 1 EACH TAB PO SCH ×2 (07:32→21:25)
[2023-02-08] MEDS: methylPREDNISolone SOD SUCCI 40 MG/ML 1 ML VIAL IV SCH ×3 (07:32→23:49)
[2023-02-08] MEDS: BACLOFEN 10 MG TAB PO SCH ×2 (07:32→21:28)
[2023-02-08] MEDS: PIPERACILLIN-TAZOBACTAM 3.375 GM in SODIUM CHLORIDE 0.9% 100 ML IVPB SCH ×3 (07:32→23:49)
[2023-02-08] MEDS: IPRATROPIUM 0.5 MG/2.5 ML NEBU INHALATION SCH ×4 (08:39→20:02)
--- NOTE | 2023-02-08 12:47 | CDI ---
Documentation Clarification Form Date: 02/08/2023 12:21:53 PM From: Maribell Short RN CCDS Phone: [phone] Admit Date: 02/06/2023 06:50:00 AM Patient Name: Oz Monroe Visit Number: [id number] Discharge Date: ATTENTION: The Clinical Documentation Specialists (CDI) and [facility] Coding Staff appreciate your assistance in clarifying documentation. Please respond to the clarification below the line at the bottom and electronically sign. The CDI & [facility] Coding staff will review the response and follow-up if needed. Please note: Queries are made part of the Legal Health Record. If you have any questions, please contact the author of this message via ITS. Dr. Mack Fox Your patient has the documented diagnosis of Heart failure, 02/06, H&P. Additional information regarding type and acuity is requested. History/Risk Factors: 57-year-old Male presents to the ED with abdominal pain. Medical history of Crohns disease, Heart Failure, COPD and Angina. 02/06, H&P. Clinical Indicators: VS/Pulse OX, 02/06: B/P 112/75; HR 88; Temp 98.7 F Oral; RR 18; SpO2 97% room air Echocardiogram Results, 08/18/2022: Severely impaired left ventricle systolic function with mild left ventricle dilatation. Moderate to severe eccentric mitral regurgitation. Mild tricuspid regurgitation. Chest X Ray, 02/07: COPD changes with bibasilar subsegmental atelectasis. Treatment: 02/06 Coreg 6.26mg PO BID [facility] In your professional opinion, can you please clarify the type and acuity of heart failure if known? [X ] Chronic Systolic Heart Failure (reduced EF) [ ] Chronic Systolic & Diastolic Heart Failure [ ] Other, please specify [ ] Unable to determine (Template Last Revised: August 2020) MTDD
[2023-02-08] MEDS: SODIUM CHLORIDE 0.9% 1,000 ML IV SCH ×2 (14:22→23:30)
--- NOTE | 2023-02-08 15:03 | P.PN ---
Subjective Progress Note Date: 02/08/23 CHIEF COMPLAINT: Small bowel obstruction HISTORY OF PRESENT ILLNESS: Patient continues to complain of lower abdominal pain more so on the right lower quadrant. He reports his pain about a 7 out of 10 yesterday pain was about 10. He has having small amounts of flatus. No bowel movement yet. NG tube with 600 mL output through the night 100ml output this morning. Afebrile. WBC 7.9 PHYSICAL EXAM: VITAL SIGNS: Reviewed GENERAL: Well-developed in no acute distress. HEENT: No sclera icterus. Extraocular movements grossly intact. Moist buccal mucosa. Head is atraumatic, normocephalic. Hears conversational speech. No nasal drainage. NECK: Supple without lymphadenopathy. CHEST: Non-labored respirations and equal bilateral excursions. CARDIOVASCULAR: Palpable 2+ radial pulses. ABDOMEN: Soft. Nondistended. Tenderness to palpation across the lower abdomen more so on the right lower quadrant MUSCULOSKELETAL: No clubbing or cyanosis. NEUROLOGIC: No focal or lateralizing signs. Cranial nerves II through XII grossly intact. PSYCH: Appropriate affect. Alert and oriented to person, place and time. SKIN: Well perfused. Good skin turgor. ASSESSMENT: 1. Distal small bowel obstruction likely secondary to Crohn's 2. Crohn's exacerbation 3. History of abdominal surgeries PLAN: -Recommend conservative management -Continue NG tube for decompression until patient has completed at least 48 hours of the IV steroids -Keep patient nothing by mouth except for ice chips and popsicles -Continue IV steroids for Crohn's exacerbation -Encourage patient to increase activity Physician Shovel Handle Assembler note has been reviewed by physician. Signing provider agrees with the documented findings, assessment, and plan of care. Objective - Vital Signs Vital signs: Vital Signs Temp 98.0 F 02/08/23 07:07 Pulse 72 02/08/23 08:55 Resp 16 02/08/23 08:39 BP 122/69 02/08/23 07:07 Pulse Ox 90 L 02/08/23 07:07 FiO2 Intake & Output 02/07/23 02/08/23 02/08/23 18:59 06:59 18:59 Intake Total 1000 Output Total 1450 Balance -450 Intake: Intake, IV Titration 1000 Amount Piperacillin-Tazobactam 3 100 .375 gm In Sodium Chloride 0.9% 100 ml @ 25 mls/hr IVPB Q8HR [facility] Rx# :[id number] Sodium Chloride 0.9% 1, 900 000 ml @ 75 mls/hr IV . [id number] [facility] Rx#:[id number] Output: Gastric Drainage 700 Urine 750 Other: Voiding Method Toilet Urinal # Voids 3 1 - Labs CBC & Chem 7: 02/07/23 13:10 02/07/23 13:10 Labs: Abnormal Lab Results - Last 24 Hours (Table) 02/07/23 02/07/23 Range/Units 13:10 13:10 RBC 3.83 L (4.30-5.90) m/uL Hgb 12.1 L D (13.0-17.5) gm/dL Hct 37.8 L (39.0-53.0) % Creatinine 0.65 L (0.66-1.25) mg/dL
--- NOTE | 2023-02-08 15:04 | P.PN ---
Subjective Progress Note Date: 02/08/23 H&P Date: 02/06/23 Chief Complaint: Abdominal pain, nausea vomiting This is a 57-year-old gentleman with past medical history significant for recent partial small bowel obstruction in September 2022 with conservative management recommended per general surgery ,Crohn's-last exacerbation 10 years ago, anemia ,ongoing nicotine dependence, occasional marijuana ,multi-valvular disease, nonischemic cardiomyopathy, cardiac catheterization 01/13/2022 reporting normal coronary arteries pneumonia, multiple sclerosis, chronic back/neck pain and multiple other medical issues, presented to the ER with with stomach pain over the last couple of days that continued to worsen with nausea and vomiting that began yesterday. No bowel movement, no flatus. No abdominal distention. Diffuse abdominal pain worse on the right. Denies fever or chills. Denies chest pain, palpitations or shortness of breath. CT abdomen and pelvis reporting distal small bowel obstruction, likely secondary to adhesions from prior surgery at the level of the cecum. Maintained on IV fluid hydration,pain management and bowel rest. Surgery consult in place, recommendations pending. Afebrile, WBC 15.1, hemoglobin 16.1, platelets 331, INR 0.9. Sodium 136 potassium 4.5 bicarb 23, BUN 12, creatinine 0.74. Glucose 149. LFTs within normal limits. Lipase 29. 02/07/2023 NPO, maintained on IV fluid hydration, Zosyn. Complains of right lower quadrant pain-significant but improving. No further nausea or vomiting. Reports small soft bowel movement this morning- did not notice the color. NG tube with bilious drainage. Ambulating in room. Surgical evaluation pending. Afebrile, WBC/ Labs pending. Denies chest pain, palpitations or shortness of breath, maintaining O2 sats in the 90s on room air. 02/08/2023 maintained on gentle IV fluid hydration, Zosyn, steroids, abdominal pain improving. Denies bowel movement, passing flatus. Ambulating in room with walker, tolerating exertion well. NG to low intermittent suction continues. Denies chest pain, palpitations or shortness of breath. Maintaining O2 sats in the 90s on room air. Objective - Vital Signs Vital signs: Vital Signs Temp 97.9 F 02/08/23 13:32 Pulse 59 L 02/08/23 13:32 Resp 15 02/08/23 13:32 BP 127/75 02/08/23 13:32 Pulse Ox 95 02/08/23 13:32 FiO2 Intake & Output 02/07/23 02/08/23 02/08/23 18:59 06:59 18:59 Intake Total 1000 Output Total 1450 Balance -450 Intake: Intake, IV Titration 1000 Amount Piperacillin-Tazobactam 3 100 .375 gm In Sodium Chloride 0.9% 100 ml @ 25 mls/hr IVPB Q8HR [facility] Rx# :[id number] Sodium Chloride 0.9% 1, 900 000 ml @ 75 mls/hr IV . [id number] [facility] Rx#:[id number] Output: Gastric Drainage 700 Urine 750 Other: Voiding Method Toilet Urinal # Voids 3 1 - Exam PHYSICAL EXAM: VITAL SIGNS: As above GENERAL: Alert and oriented 3, Sitting up in bed, resting, no acute distress HEENT: Normocephalic, atraumatic Conjunctivae normal. NG tube to LIS with bilious drainage. NECK: Supple, No JVD. CARDIOVASCULAR: S1, S2 regular.systolic murmur. RESPIRATION: Unlabored, equal air entry. Breath sounds diminished in the bases. ABDOMEN: Soft, nondistended, decreasing diffuse tenderness, greater on the right lower quadrant. No guarding. +BS. LEGS: No edema. no swelling, no calf tenderness, positive DP pulses. NERVOUS SYSTEM: Cranial N 2-12 grossly normal. No focal deficits. Strength and sensation grossly intact. Skin: Warm and dry, no rash - Labs CBC & Chem 7: 02/07/23 13:10 02/07/23 13:10 Assessment and Plan Assessment: Abdominal pain with nausea and vomiting , recent Partial distal small bowel obstruction per CT on 10/22 with conservative management recommended by general surgery. Small bowel obstruction reported per CT. acute Crohn's exacerbation As per general surgery. Atelectasis secondary to the above. History of Crohn's disease, last exacerbation approximately 10 years ago COPD History of Covid 19 infection in March 2022 History of migraines Chronic pain syndrome Moderate mitral regurgitation. History of nonischemic cardiomyopathy, ejection fraction 40-45% Normal coronary arteries per cardiac catheterization 01/13/2022 Plan:Continue on current medication regime ,monitoring and symptomatic treatment. Continue IV fluid hydration, IV antibiotics, steroids .NPO-Bowel rest, NG tube as per surgery. Maintain aggressive pulmonary toileting with incentive spirometer reinforced. Increase ambulation as tolerated into the hallway with assistance every shift. The impression and plan of care has been dictated as directed. : I performed a history and examination of this patient, discussed the same with the dictator. I agree with the dictator's note ,documented as a scribe. Any additional findings or plans will be noted.
[2023-02-08] MEDS: HYDROmorphone 0.5 MG/0.5 ML SYRINGE IVP PRN ×2 (18:28→23:49)
[2023-02-08] MEDS: MIRTAZAPINE 15 MG TAB PO SCH (21:25)
[2023-02-08] MEDS: DULoxetine HCL 30 MG CAPSULE.DR PO SCH (21:26)
[2023-02-08] MEDS: QUEtiapine 50 MG TAB PO SCH (21:26)
[2023-02-09 07:35] VITALS: RESP 16
[2023-02-09] MEDS: IPRATROPIUM 0.5 MG/2.5 ML NEBU INHALATION SCH ×3 (07:36→15:03)
[2023-02-09] MEDS: PANTOPRAZOLE 40 MG TABLET PO SCH (08:44)
[2023-02-09] MEDS: MORPHINE SULFATE ER 30 MG TABLET PO SCH (08:44)
[2023-02-09] MEDS: HYDROcodone/APAP 7.5-325MG 1 EACH TAB PO SCH (08:45)
[2023-02-09] MEDS: BACLOFEN 10 MG TAB PO SCH (08:45)
[2023-02-09] MEDS: methylPREDNISolone SOD SUCCI 40 MG/ML 1 ML VIAL IV SCH (08:46)
[2023-02-09] MEDS: LOSARTAN 25 MG TAB PO SCH (08:46)
[2023-02-09] MEDS: PIPERACILLIN-TAZOBACTAM 3.375 GM in SODIUM CHLORIDE 0.9% 100 ML IVPB SCH (08:48)
[2023-02-09] MEDS: carvediloL 6.25 MG TAB PO SCH (08:48)
[2023-02-09] MEDS: HYDROmorphone 0.5 MG/0.5 ML SYRINGE IVP PRN (09:45)
[2023-02-09 10:59] VITALS: PULSE 65
--- NOTE | 2023-02-09 12:38 | P.PN ---
Subjective Progress Note Date: 02/09/23 CHIEF COMPLAINT: Small bowel obstruction HISTORY OF PRESENT ILLNESS: Patient reports he is feeling better today. Pain is decreased. He is having a lot of flatus. No bowel movement. Denies any nausea. NG tube with 300 mL output. He reports that he feels hungry. PHYSICAL EXAM: VITAL SIGNS: Reviewed GENERAL: Well-developed in no acute distress. HEENT: No sclera icterus. Extraocular movements grossly intact. Moist buccal mucosa. Head is atraumatic, normocephalic. Hears conversational speech. No nasal drainage. NECK: Supple without lymphadenopathy. CHEST: Non-labored respirations and equal bilateral excursions. CARDIOVASCULAR: Palpable 2+ radial pulses. ABDOMEN: Soft. Nondistended. Mild tenderness in the right lower quadrant MUSCULOSKELETAL: No clubbing or cyanosis. NEUROLOGIC: No focal or lateralizing signs. Cranial nerves II through XII grossly intact. PSYCH: Appropriate affect. Alert and oriented to person, place and time. SKIN: Well perfused. Good skin turgor. ASSESSMENT: 1. Distal small bowel obstruction likely secondary to Crohn's improved 2. Crohn's exacerbation 3. History of abdominal surgeries PLAN: -Discontinue NG tube -Start full liquid diet -If patient tolerates diet, he then can be discharged from surgical standpoint -Encourage patient to increase activity Physician Hogshead Roller note has been reviewed by physician. Signing provider agrees with the documented findings, assessment, and plan of care. Objective - Vital Signs Vital signs: Vital Signs Temp 97.6 F 02/09/23 07:05 Pulse 65 02/09/23 10:59 Resp 16 02/09/23 07:05 BP 120/71 02/09/23 07:05 Pulse Ox 92 L 02/09/23 07:05 FiO2 Intake & Output 02/08/23 02/09/23 02/09/23 18:59 06:59 18:59 Output Total 1300 1750 Balance -1300 -1750 Output: Gastric Drainage 400 Urine 900 1750 Other: Voiding Method Toilet Urinal # Voids 2 - Labs CBC & Chem 7: 02/07/23 13:10 02/07/23 13:10
[2023-02-09 13:01] LABS: Basophils # (A) 0.01 X 10*3/uL (0.00-0.10); Basophils % (A) 0.1 %; Eosinophils # (A) 0 X 10*3/uL (0.04-0.35); Eosinophils % (A) 0 %; HCT 36.6 % (39.6-50.0); HGB 12.2 d/dL (13.0-17.0); Lymphocytes # (A) 0.89 X 10*3/uL (0.90-5.00); Lymphocytes % (A) 8.6 %; MCH 31.8 pg (27.0-32.0); MCHC 33.3 d/dL (32.0-37.0); MCV 95.3 FL (80.0-97.0); Mean Platelet Volume 10.6 FL (9.5-12.2); Monocytes # (A) 0.31 X 10*3/uL (0.20-1.00); NRBC Per 100 WBC 0 X 10*3/uL (0.00-0.01); Neutrophils # (A) 9.06 X 10*3/uL (1.80-7.70); Neutrophils % (A) 87.9 %; Platelet Count 294 X 10*3/uL (140-440); RBC 3.84 X 10*6/uL (4.40-5.60); RDW 12.6 % (11.5-14.5); WBC 10.31 X 10*3/uL (4.50-10.00)
--- NOTE | 2023-02-09 13:18 | P.DS ---
Providers Date of admission: 02/06/23 06:50 Expected date of discharge: 02/09/23 Attending physician: Mack Fox Consults: 02/06/23 06:50 Consult Physician Routine Consulting Provider: Kandace Lomeli Consult Reason/Comments: SBO Do you want consulting provider notified?: Yes Primary care physician: Mack Fox Hospital Course: Discharge diagnoses; Abdominal pain with nausea and vomiting , recent Partial distal small bowel obstruction per CT on 10/22 with conservative management recommended by general surgery. Small bowel obstruction reported per CT. acute Crohn's exacerbation As per general surgery. Atelectasis secondary to the above. History of Crohn's disease, last exacerbation approximately 10 years ago COPD History of Covid 19 infection in March 2022 History of migraines Chronic pain syndrome Moderate mitral regurgitation. History of nonischemic cardiomyopathy, ejection fraction 40-45% Normal coronary arteries per cardiac catheterization 01/13/2022 Hospital course; This is a 57-year-old gentleman with past medical history significant for recent partial small bowel obstruction in September 2022 with conservative management recommended per general surgery ,Crohn's-last exacerbation 10 years ago, anemia ,ongoing nicotine dependence, occasional marijuana ,multi-valvular disease, nonischemic cardiomyopathy, cardiac catheterization 01/13/2022 reporting normal coronary arteries pneumonia, multiple sclerosis, chronic back/neck pain and multiple other medical issues, presented to the ER with with stomach pain over the last couple of days that continued to worsen with nausea and vomiting that began yesterday. No bowel movement, no flatus. No abdominal distention. Diffuse abdominal pain worse on the right. Denies fever or chills. Denies chest pain, palpitations or shortness of breath. CT abdomen and pelvis reporting distal small bowel obstruction, likely secondary to adhesions from prior surgery at the level of the cecum. Maintained on IV fluid hydration,pain management and bowel rest. Surgery consult in place, recommendations pending. Afebrile, WBC 15.1, hemoglobin 16.1, platelets 331, INR 0.9. Sodium 136 potassium 4.5 bicarb 23, BUN 12, creatinine 0.74. Glucose 149. LFTs within normal limits. Lipase 29. 02/07/2023 NPO, maintained on IV fluid hydration, Zosyn. Complains of right lower quadrant pain-significant but improving. No further nausea or vomiting. Reports small soft bowel movement this morning- did not notice the color. NG tube with bilious drainage. Ambulating in room. Surgical evaluation pending. Afebrile, WBC/ Labs pending. Denies chest pain, palpitations or shortness of breath, maintaining O2 sats in the 90s on room air. 02/08/2023 maintained on gentle IV fluid hydration, Zosyn, steroids, abdominal pain improving. Denies bowel movement, passing flatus. Ambulating in room with walker, tolerating exertion well. NG to low intermittent suction continues. Denies chest pain, palpitations or shortness of breath. Maintaining O2 sats in the 90s on room air. 02/09. Patient seen and examined. Dr. Pate took over care. Patient was tolerating full liquid diet, surgery had cleared the patient for discharge. PHYSICAL EXAMINATION: GENERAL: The patient is alert and oriented x3, not in any acute distress. Well d eveloped, well nourished. HEENT: Pupils are round and equally reacting to light. EOMI. No scleral icterus. No conjunctival pallor. Normocephalic, atraumatic. No pharyngeal erythema. No thyromegaly. CARDIOVASCULAR: S1 and S2 present. No murmurs, rubs, or gallops. PULMONARY: Chest is clear to auscultation, no wheezing or crackles. ABDOMEN: Soft, nontender, nondistended, normoactive bowel sounds. No palpable organomegaly. MUSCULOSKELETAL: No joint swelling or deformity. EXTREMITIES: No cyanosis, clubbing, or pedal edema. NEUROLOGICAL: Gross neurological examination did not reveal any focal deficits. SKIN: No rashes. Dictation was produced using NXT-ID dictation software. please excuse any grammatical, word or spelling errors. Patient Condition at Discharge: Stable Plan - Discharge Summary New Discharge Prescriptions: Continue Baclofen [Lioresal] 20 mg PO BID HYDROcodone/APAP 7.5-325MG [[place] 7.5-325] 1 tab PO BID Pantoprazole Sodium [Protonix] 40 mg PO DAILY QUEtiapine [SEROquel] 50 mg PO HS rOPINIRole HCL [Requip] 1 mg PO HS Losartan [Cozaar] 25 mg PO DAILY Furosemide [Lasix] 20 mg PO BID SUMAtriptan succinate [Imitrex] 50 mg PO BID PRN PRN Reason: Migraine Headache Spironolactone [Aldactone] 25 mg PO DAILY #30 tab Morphine Sulfate ER [Ms Contin] 30 mg PO Q12H carvediloL [Coreg] 6.25 mg PO BID DULoxetine HCL [Cymbalta] 30 mg PO HS Mirtazapine [Remeron] 30 mg PO HS Tiotropium 18 Mcg/Puff [Spiriva] 2 puff INHALATION DAILY Aspirin [[place] Aspirin EC] 81 mg PO DAILY Discharge Medication List Baclofen [Lioresal] 20 mg PO BID 12/21/15 [History] HYDROcodone/APAP 7.5-325MG [[place] 7.5-325] 1 tab PO BID 04/17/20 [History] Pantoprazole Sodium [Protonix] 40 mg PO DAILY 04/17/20 [History] QUEtiapine [SEROquel] 50 mg PO HS 09/14/21 [History] SUMAtriptan succinate [Imitrex] 50 mg PO BID PRN 09/14/21 [History] rOPINIRole HCL [Requip] 1 mg PO HS 09/17/21 [History] Spironolactone [Aldactone] 25 mg PO DAILY #30 tab 12/26/21 [Rx] Morphine Sulfate ER [Ms Contin] 30 mg PO Q12H 03/06/22 [History] carvediloL [Coreg] 6.25 mg PO BID 04/06/22 [History] DULoxetine HCL [Cymbalta] 30 mg PO HS 08/17/22 [History] Furosemide [Lasix] 20 mg PO BID 08/17/22 [History] Losartan [Cozaar] 25 mg PO DAILY 08/17/22 [History] Mirtazapine [Remeron] 30 mg PO HS 08/17/22 [History] Tiotropium 18 Mcg/Puff [Spiriva] 2 puff INHALATION DAILY 01/17/23 [History] Aspirin [[place] Aspirin EC] 81 mg PO DAILY 01/22/23 [History] Follow up Appointment(s)/Referral(s): Mack Fox DO [Primary Care Provider] - 1-2 days Discharge Disposition: HOME SELF-CARE
[2023-02-09 13:27] LABS: BUN/Creat Ratio 17.67 Ratio (12.00-20.00); Blood Urea Nitrogen 10.6 mg/dL (9.0-27.0); Calcium 9.1 mg/dL (8.7-10.3); Carbon Dioxide 24.1 mmol/L (21.6-31.8); Chloride 106 mmol/L (96-109); Glucose 109 mg/dL (70-110); Potassium 4.5 mmol/L (3.5-5.5); Sodium 140 mmol/L (135-145)
[2023-02-09 14:53] VITALS: BP 117/56; TEMP 97.4
== END 2023-02-09 15:56 | disposition home or self-care (01) | DRG 386 ==
LOC: EC 04:00 → 4SSUR 06:50
PROVIDERS: ADMIT Family Medicine; ATTEND Family Medicine
DX: K50.912 Crohn's disease, unspecified, with intestinal obstruction (principal); I42.8 Other cardiomyopathies; J98.11 Atelectasis; K56.50 Intestinal adhesions [bands], unspecified as to partial versus complete obstruction; I50.22 Chronic systolic (congestive) heart failure; G43.909 Migraine, unspecified, not intractable, without status migrainosus; G89.4 Chronic pain syndrome; I34.0 Nonrheumatic mitral (valve) insufficiency; F17.200 Nicotine dependence, unspecified, uncomplicated; F32.A Depression, unspecified; F41.9 Anxiety disorder, unspecified; G35 Multiple sclerosis; I11.0 Hypertensive heart disease with heart failure; J44.9 Chronic obstructive pulmonary disease, unspecified; K63.5 Polyp of colon; Z20.822 Contact with and (suspected) exposure to COVID-19; Z79.52 Long term (current) use of systemic steroids; Z79.82 Long term (current) use of aspirin; Z79.899 Other long term (current) drug therapy; Z82.3 Family history of stroke; Z83.3 Family history of diabetes mellitus; Z86.16 Personal history of COVID-19; Z90.49 Acquired absence of other specified parts of digestive tract; Z88.8 Allergy status to other drugs, medicaments and biological substances; Z95.1 Presence of aortocoronary bypass graft
CPT/HCPCS: 36415; 71045; 74177; 80048; 80053; 81003; 82150; 83605; 83690; 85025; 85027; 85610; 85730; 94640; 96361; 96365; 96366; 96375; 96376; 99285

== ENCOUNTER 2023-03-13 10:10 | Day surgery (SDC) | payer MEDICARE ==
[2023-03-12 08:18] VITALS: BMI 23.7
[~2023-03-13 10:10] MED LIST changes: -ACETAMINOPHEN TAB 500 MG TAB PO PRN; -DEXAMETHASONE SOD PHOSPHATE 4 MG/ML 1 ML VIAL IV ONE; -GABAPENTIN 300 MG CAP PO PRN; -LIDOCAINE 1% (10MG/ML) FOR IV START INTRADERMA PRN; -MELOXICAM 7.5 MG TAB PO PRN; -MIDAZOLAM 2 MG/2 ML VIAL IV PRN; -ONDANSETRON 4 MG/2 ML VIAL IVP ONE; -ROPIVACAINE/EPI/CLONIDINE/KET 50 ML SYRINGE MISCELLANE PRN; -TRANEXAMIC ACID 1,000 MG in SODIUM CHLORIDE 0.9% 100 ML IVPB PRN
[2023-03-13 10:43] VITALS: RESP 16; TEMP 97.3
[2023-03-13] MEDS: LACTATED RINGERS 1,000 ML IV ONE (10:44)
[2023-03-13] MEDS ORDERED: PROPOFOL 10 MG/ML 20 ML VIAL IV ONE (10:49)
--- NOTE | 2023-03-13 11:10 | P.PCN ---
Date of Procedure: 03/13/23 Procedure(s) Performed: BRIEF HISTORY: Patient is a 89-year-old pleasant white male scheduled for an elective colonoscopy as a part of evaluation of Crohn's disease involving the ileocolic anastomosis. He has history of Crohn's disease diagnosed in 2019 and underwent terminal ileal resection at that time. Since then he had 2 episodes of small bowel obstruction the hospitalization the last one was October 2023. He is presently on no maintenance medications. He continues to have chronic intermittent lower abdominal pain and severe constipation. PROCEDURE PERFORMED: Colonoscopy with biopsy. PREOPERATIVE DIAGNOSIS: History of Crohn's disease. IV sedation per Anesthesia. PROCEDURE: After informed consent was obtained, the patient, was brought into the endoscopy unit. IV sedation was administered by Anesthesia under continuous monitoring. Digital rectal examination was normal. Initially the Olympus CF-160 flexible video colonoscope was then inserted in the rectum, gradually advanced into the right colon with ileocolic anastomosis was visualized and appeared narrowed and I was not able to advance the scope into the distal ileum. However the mucosa of the anastomosis appeared normal with no evidence of active Crohn's disease. Biopsies were done from this area. Prep was poor and several areas of the colon. Mucosa of the transverse colon, descending colon, sigmoid colon, and rectum appeared normal. Retroflexion was performed in the rectum and no lesions were seen. The patient tolerated the procedure well. IMPRESSION: Narrowing of the ileocolic anastomosis with no evidence of active Crohn's disease Rest of the colon appeared normal Poor prep involving the entire colon RECOMMENDATIONS: Findings of this examination were discussed with the patient as well as his family. He was advised to follow with the biopsy results and he'll be seen in office in 2 weeks. If he continues remains asymptomatic will obtain MR enterography to evaluate the rest of the small bowel to evaluate further evidence of active Crohn's disease.
[2023-03-13 11:40] VITALS: BP 102/68; PULSE 60
== END 2023-03-13 12:19 | disposition home or self-care (01) ==
LOC: ORWHC2ENDO 10:10
PROVIDERS: ATTEND Internal Medicine Gastroenterology
DX: K52.89 Other specified noninfective gastroenteritis and colitis (principal); K21.9 Gastro-esophageal reflux disease without esophagitis; I50.9 Heart failure, unspecified; F17.210 Nicotine dependence, cigarettes, uncomplicated; Z79.899 Other long term (current) drug therapy
CPT/HCPCS: 88305; 45380; J2704

== ENCOUNTER 2023-04-11 19:49 | Emergency (ER) | payer MEDICARE ==
[2023-04-11 20:15] VITALS: PULSE 89; TEMP 97.8
[2023-04-11] MEDS ORDERED: SODIUM CHLORIDE 0.9% 500 ML 500 ML IV ONE (21:13)
--- NOTE | 2023-04-11 21:25 | ED ---
General Adult HPI - General Chief complaint: Neck Pain/Injury Stated complaint: Neck Pain Time Seen by Provider: 04/11/23 21:00 Source: patient, RN notes reviewed, old records reviewed Mode of arrival: ambulatory - History of Present Illness Initial comments: 57-year-old male presenting with headache, neck stiffness. Patient symptoms have been present for the past several days. He does have history of cervical fusion and is currently followed with orthopedics regarding chronic neck and low back pain. Patient states that the stiffness is making him dizzy especially when he stands. He denies chest pain or palpitations. States he has been eating and drinking well. - Related Data Home Medications Medication Instructions Recorded Confirmed Baclofen [Lioresal] 20 mg PO BID 12/21/15 03/13/23 HYDROcodone/APAP 7.5-325MG [[place] 1 tab PO BID 04/17/20 03/13/23 7.5-325] Pantoprazole Sodium [Protonix] 40 mg PO DAILY 04/17/20 03/13/23 QUEtiapine [SEROquel] 50 mg PO HS 09/14/21 03/13/23 SUMAtriptan succinate [Imitrex] 50 mg PO BID PRN 09/14/21 03/13/23 rOPINIRole HCL [Requip] 1 mg PO HS 09/17/21 03/13/23 Morphine Sulfate ER [Ms Contin] 30 mg PO Q12H 03/06/22 03/13/23 carvediloL [Coreg] 6.25 mg PO BID 04/06/22 03/13/23 DULoxetine HCL [Cymbalta] 30 mg PO HS 08/17/22 03/13/23 Furosemide [Lasix] 20 mg PO BID 08/17/22 03/13/23 Losartan [Cozaar] 25 mg PO DAILY 08/17/22 03/13/23 Mirtazapine [Remeron] 30 mg PO HS 08/17/22 03/13/23 Tiotropium 18 Mcg/Puff [Spiriva] 2 puff INHALATION DAILY 01/17/23 03/13/23 Aspirin [[place] Aspirin EC] 81 mg PO DAILY 01/22/23 03/13/23 Previous Rx's Medication Instructions Recorded Spironolactone [Aldactone] 25 mg PO DAILY #30 tab 12/26/21 Allergies Allergy/AdvReac Type Severity Reaction Status Date / Time lisinopril Allergy Swelling Verified 04/11/23 20:04 of the mouth Review of Systems ROS Statement: Those systems with pertinent positive or pertinent negative responses have been documented in the HPI. ROS Other: All systems not noted in ROS Statement are negative. Past Medical History Past Medical History: Chest Pain / Angina, Heart Failure, COPD, Eye Disorder, Musculoskeletal Disorder, Neurologic Disorder Additional Past Medical History / Comment(s): COVID 17 January-Jan 2022, Multiple sclerosis USES A CANE/ walker TO AMBULATE, falls. has had in past occasional DOUBLE VISION. CHRONIC BACK NECK PAIN. HAD SPINAL STIMULATOR, THEN REMOVED; Mi graine headache. Crohn's disease.lt ear [place] History of Any Multi-Drug Resistant Organisms: None Reported, MRSA Date of last positivie culture/infection: 2014 MDRO Source:: lower back Past Surgical History: Appendectomy, Back Surgery, Bowel Resection, Hernia Repair Additional Past Surgical History / Comment(s): CERVICAL FUSION. SPINAL STIMULATOR implantation, revision and removal. FOREIGN BODY REMOVED RT CHEST WALL. 10/18/2015 wire removed from back. (from stimulator) Past Anesthesia/Blood Transfusion Reactions: Previous Problems w/ Anesthesia Additional Past Anesthesia/Blood Transfusion Reaction / Comment(s): STATES TAKES A LONG TIME TO WAKE UP Past Psychological History: Anxiety, Depression Smoking Status: Current every day smoker Past Alcohol Use History: None Reported Past Drug Use History: Marijuana - Past Family History Father Family Medical History: Cancer, Diabetes Mellitus Additional Family Medical History / Comment(s): CABG-TRIPLE BYPASS, Mother Family Medical History: Cancer, CVA/TIA, Diabetes Mellitus Additional Family Medical History / Comment(s): Stroke Brother(s) Additional Family Medical History / Comment(s): cardiomyopathy General Exam General appearance: alert, in no apparent distress Head exam: Present: atraumatic, normocephalic Eye exam: Present: normal appearance, PERRL Neck exam: Present: tenderness (Bilateral paraspinal) Respiratory exam: Present: normal lung sounds bilaterally. Absent: respiratory distress, wheezes Cardiovascular Exam: Present: regular rate, normal rhythm GI/Abdominal exam: Present: soft. 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 Absent: CN II-XII intact, motor sensory deficit Psychiatric exam: Present: normal affect, normal mood Skin exam: Present: warm, dry, intact Course Vital Signs 04/11/23 19:58 Temperature 97.8 F Pulse Rate 89 Respiratory 18 Rate Blood Pressure 133/85 O2 Sat by Pulse 99 Oximetry Medical Decision Making - Medical Decision Making Was pt. sent in by a medical professional or institution (, [facility], DIE REPAIRER TRIMMER [employer]IES, urgent care, hospital, or long-term...) When possible be specific @ -[No] Did you speak to anyone other than the patient for history (EMS, parent, family, police, friend...)? What history was obtained from this source @ -[No] Did you review nursing and triage notes (agree or disagree)? Why? @ -[I reviewed and agree with nursing and triage notes] Were old charts reviewed (outside hosp., previous admission, EMS record, old EKG, old radiological studies, urgent care reports/EKG's, long-term records)? Report findings @ -[No old charts were reviewed] Differential Diagnosis (chest pain, altered mental status, abdominal pain women, abdominal pain men, vaginal bleeding, weakness, fever, dyspnea, syncope, heada antonino, dizziness, GI bleed, back pain, seizure, CVA, palpatations, mental health, musculoskeletal)? @ -[not applicable] EKG interpreted by me (3pts min.). @ -EKG: Sinus rhythm rate of 68, GA interval 157, QRS duration 98, QTC 411, no ST segment changes X-rays interpreted by me (1pt min.). @ -[None done] CT interpreted by me (1pt min.). @ -[CT brain negative for intracranial hemorrhage or mass effect. U/S interpreted by me (1pt. min.). @ -[None done] What testing was considered but not performed or refused? (CT, X-rays, U/S, labs)? Why? @ -[None] What meds were considered but not given or refused? Why? @ -[None] Did you discuss the management of the patient with other professionals (professionals i.e. , [facility], DIE REPAIRER TRIMMER DIES, lab, RT, psych nurse, social security assessor, machine set up technician, teacher, operations officer trust department, disability case manager)? Give summary @ -[No] Was smoking cessation discussed for >3mins.? @ -[No] Was critical care preformed (if so, how long)? @ -[No] Were there social determinants of health that impacted care today? How? (Homelessness, low income, unemployed, alcoholism, drug addiction, transportation, low edu. Level, literacy, decrease access to med. care, fdc, rehab)? @ -[No] Was there de-escalation of care discussed even if they declined (Discuss DNR or withdrawal of care, Hospice)? DNR status @ -[No] What co-morbidities impacted this encounter? (DM, HTN, Smoking, COPD, CAD, Cancer, CVA, ARF, Chemo, Hep., AIDS, mental health diagnosis, sleep apnea, morbid obesity)? @ -[Chronic neck and back issues, follows regularly with orthopedics. Was patient admitted / discharged? Hospital course, mention meds given and route, prescriptions, significant lab abnormalities, going to OR and other pertinent info. @ -57-year-old male with neck stiffness, dizziness, headache. Head CT obtained, negative for intracranial hemorrhage or mass effect cervical spine showing chronic changes laboratory testing unremarkable Undiagnosed new problem with uncertain prognosis? @ -[No] Drug Therapy requiring intensive monitoring for toxicity (Heparin, Nitro, Insulin, Cardizem)? @ -[No] Were any procedures done? @ -[No] Diagnosis/symptom? @ Neck spasm Acute, or Chronic, or Acute on Chronic? @ -Acute Uncomplicated (without systemic symptoms) or Complicated (systemic symptoms)? @ -[default] Side effects of treatment? @ -[No] Exacerbation, Progression, or Severe Exacerbation? @ -[No] Poses a threat to life or bodily function? How? (Chest pain, [place], [place], pneumonia, PE, COPD, DKA, ARF, appy, cholecystitis, CVA, Diverticulitis, Homicidal, Suicidal, threat to staff... and all critical care pts) @ -[Low risk - Lab Data Result diagrams: 04/11/23 21:15 04/11/23 21:15 Lab Results 04/11/23 04/11/23 Range/Units 21:15 21:15 WBC 11.1 H (3.8-10.6) k/uL RBC 4.78 (4.30-5.90) m/uL Hgb 15.0 (13.0-17.5) gm/dL Hct 45.5 (39.0-53.0) % MCV 95.3 (80.0-100.0) fL MCH 31.4 (25.0-35.0) pg MCHC 33.0 (31.0-37.0) g/dL RDW 12.1 (11.5-15.5) % Plt Count 397 (150-450) k/uL MPV 7.5 Neutrophils % 58 % Lymphocytes % 31 % Monocytes % 7 % Eosinophils % 2 % Basophils % 1 % Neutrophils # 6.5 (1.3-7.7) k/uL Lymphocytes # 3.4 (1.0-4.8) k/uL Monocytes # 0.8 (0-1.0) k/uL Eosinophils # 0.2 (0-0.7) k/uL Basophils # 0.1 (0-0.2) k/uL Sodium 136 L (137-145) mmol/L Potassium 4.7 (3.5-5.1) mmol/L Chloride 102 (98-107) mmol/L Carbon Dioxide 25 (22-30) mmol/L Anion Gap 9 mmol/L BUN 14 (9-20) mg/dL Creatinine 0.59 L (0.66-1.25) mg/dL Est GFR (CKD-EPI)AfAm >90 (>60 ml/min/1.73 sqM) Est GFR (CKD-EPI)NonAf >90 (>60 ml/min/1.73 sqM) Glucose 85 (74-99) mg/dL Calcium 9.6 (8.4-10.2) mg/dL Magnesium 2.1 (1.6-2.3) mg/dL Total Bilirubin 0.4 (0.2-1.3) mg/dL AST 22 (17-59) U/L ALT 18 (4-49) U/L Alkaline Phosphatase 92 (38-126) U/L Total Protein 6.7 (6.3-8.2) g/dL Albumin 4.0 (3.5-5.0) g/dL Disposition Clinical Impression: Strain of neck muscle, Cervical radiculopathy Disposition: HOME SELF-CARE Condition: Fair Instructions (If sedation given, give patient instructions): Cervical Sprain (ED) Is patient prescribed a controlled substance at d/c from ED?: No Referrals: Mack Fox DO [Primary Care Provider] - 1-2 days Time of Disposition: 22:53
[2023-04-11 21:53] LABS: Basophils # (A) 0.1 k/uL (0-0.2); Basophils % (A) 1 %; Eosinophils # (A) 0.2 k/uL (0-0.7); Eosinophils % (A) 2 %; HCT 45.5 % (39.0-53.0); Lymphocytes # (A) 3.4 k/uL (1.0-4.8); Lymphocytes % (A) 31 %; MCH 31.4 pg (25.0-35.0); MCV 95.3 fL (80.0-100.0); Mean Platelet Volume 7.5; Monocytes # (A) 0.8 k/uL (0-1.0); Monocytes % (A) 7 %; Neutrophils # (A) 6.5 k/uL (1.3-7.7); Neutrophils % (A) 58 %; Platelet Count 397 k/uL (150-450); RBC 4.78 m/uL (4.30-5.90); RDW 12.1 % (11.5-15.5); WBC 11.1 k/uL (3.8-10.6)
--- NOTE | 2023-04-11 22:02 | CT ---
EXAMINATION TYPE: CT brain cspine wo con CT DLP: 1440.1 mGycm, Automated exposure control for dose reduction was used. DATE OF EXAM: 04/11/2023 9:46 PM COMPARISON: 08/17/2022. CLINICAL INDICATION:Male, 57 years old with history of dizzy [place]; Chronic neck pain, dizziness, and he adache TECHNIQUE: Brain: Multiple axial CT images of the brain were obtained without IV contrast. Cspine: Axial CT images from the skull base to the inferior aspect of T2 we obtained without intraven ous contrast. Coronal and sagittal reformatted images were also reviewed. FINDINGS: Brain: Extra-axial spaces: No abnormal extra-axial fluid collections. Ventricular system: Within normal limits Cerebral parenchyma: No acute intraparenchymal hemorrhage or mass effect. The sánchez-white junction is well differentiated. Cerebellum: Unremarkable. Mass effect: No evidence of midline shift. Intracranial vasculature: Atherosclerotic calcifications of the intracranial vessels. Soft tissues: Normal. Calvarium/osseous structures: No depressed skull fracture. Paranasal sinuses and mastoid air cells: Clear. Visualized orbits: Orbital contents are intact. Cervical spine: Fracture: None. Osseous structures: Fixation hardware at C6-C7 with complete fusion of the C6-C7 vertebral bodies. Mu ltilevel degenerative disc disease changes with endplate spurring and disc osteophyte complex's. Vertebral alignment: Within normal limits. Spinal canal/Neural Foramina: No evidence of significant spinal canal narrowing. No evidence for sign ificant neural foraminal stenosis. Neck soft tissues: Prevertebral soft tissues are within normal limits. Other: The airway is patent. The lung apices are clear. Paraseptal emphysema changes. Pleural plaquin g with calcified lung the right upper lung medially. IMPRESSION: 1. No acute intracranial process. 2. Nonspecific white matter changes, likely secondary to chronic small vessel ischemic disease. 3. No evidence of cervical spine fracture. 4. Mild multilevel degenerative disc disease with postsurgical changes with hardware intact. 5. Calcified pleural plaquing in the right upper lung probably for history of asbestos exposure. 6. Mild paraseptal emphysema changes.
[2023-04-11] MEDS ORDERED: MECLIZINE 12.5 MG TAB PO STA (22:11)
[2023-04-11 22:35] LABS: ALT 18 U/L (4-49); AST 22 U/L (17-59); African American GFR (CKD) >90 (>60 ml/min/1.73 sqM); Alkaline Phosphatase 92 U/L (38-126); Anion Gap 9 mmol/L; Blood Urea Nitrogen 14 mg/dL (9-20); Calcium 9.6 mg/dL (8.4-10.2); Carbon Dioxide 25 mmol/L (22-30); Chloride 102 mmol/L (98-107); Glucose 85 mg/dL (74-99); Magnesium 2.1 mg/dL (1.6-2.3); Non-African American GFR(CKD) >90 (>60 ml/min/1.73 sqM); Potassium 4.7 mmol/L (3.5-5.1); Sodium 136 mmol/L (137-145); Total Bilirubin 0.4 mg/dL (0.2-1.3); Total Protein 6.7 g/dL (6.3-8.2)
[2023-04-11 23:12] VITALS: BP 106/73; RESP 16
== END 2023-04-11 23:03 | disposition home or self-care (01) ==
LOC: EC 19:49
DX: S16.1XXA Strain of muscle, fascia and tendon at neck level, initial encounter (principal); M54.12 Radiculopathy, cervical region; J44.9 Chronic obstructive pulmonary disease, unspecified; I50.9 Heart failure, unspecified; F32.A Depression, unspecified; F41.9 Anxiety disorder, unspecified; F17.200 Nicotine dependence, unspecified, uncomplicated; F12.90 Cannabis use, unspecified, uncomplicated; Z88.8 Allergy status to other drugs, medicaments and biological substances; Z86.16 Personal history of COVID-19; Z79.899 Other long term (current) drug therapy; Z79.82 Long term (current) use of aspirin; X58.XXXA Exposure to other specified factors, initial encounter
CPT/HCPCS: 36415; 70450; 72125; 80053; 83735; 85025; 93005; 99284

== ENCOUNTER → 2023-04-11 | Outpatient (CLI) | payer MEDICARE ==
--- NOTE | 2023-04-11 17:56 | CT ---
EXAMINATION TYPE: CT pelvis w con CT DLP: 2025.90 mGycm, Automated exposure control for dose reduction was used. DATE OF EXAM: 04/11/2023 4:49 PM COMPARISON: CT abdomen pelvis most recent from 02/06/2023 . CLINICAL INDICATION:Male, 57 years old with history of M54.50 low back pain, M46.1, M47.26; TECHNIQUE: Standard CT of the pelvis following the administration of 100 cc of Isovue [address] material. Coronal and sagittal reformats were performed. FINDINGS: Partial visualization of right kidney with a 1.5 cm cortical cyst. BLADDER: Evaluation due to streak artifact from hip prosthesis. REPRODUCTIVE: Unremarkable. BOWEL: Post surgical changes with anastomosis involving the cecum. No evidence of bowel obstruction. PERITONEUM: No evidence of pneumoperitoneum or free fluid. Peripheral calcified 1.1 cm likely periton eal mice within the right pelvis. VASCULATURE: Mild atherosclerotic calcification of the visualized distal abdominal aorta and its bran ches. No visualized abdominal aortic aneurysm. Few pelvic phleboliths. MUSCULOSKELETAL: No acute osseous abnormalities. Postsurgical changes from right total hip arthroplas ty. Hardware appears intact. Discrete streak artifact which limits evaluation. Mild degenerative galvez ges of both SI joints with sclerosis and vacuum disc disease. Please for to CT lumbar spine the same day for findings. LYMPH NODES: No gross evidence for lymphadenopathy. SOFT TISSUE/ABDOMINAL WALL: Tiny fat filled umbilical hernia. IMPRESSION: 1. No acute pelvic process. 2. Postsurgical changes from right hip arthroplasty. 3. Mild degenerative changes of both SI joints.
--- NOTE | 2023-04-11 19:20 | CT ---
EXAMINATION TYPE: CT lumbar spine wo con CT DLP: 2025.9 mGycm, Automated exposure control for dose reduction was used. DATE OF EXAM: 04/11/2023 4:49 PM COMPARISON: 02/06/2023. CLINICAL INDICATION:Male, 57 years old with history of M54.50 low back pain, M46.1, M47.26; PH, TECHNIQUE: Multiple axial images were obtained from the midportion of T11 through the sacroiliac rebeca nts. Soft tissue and bone windows in coronal and sagittal planes were obtained and reviewed. Contrast used: mL of , none. Oral contrast used: none. FINDINGS: Alignment: There are 5 lumbar type vertebral bodies within normal alignment. Bone: No evidence of fracture is identified. Multilevel degeneration changes of the spine with osteo phyte formation disc space narrowing vacuum disc phenomenon and facet joint arthropathy. Findings are worse at L5-S1. Discs: T12-L1: No spinal canal or neural foraminal stenosis is identified. L1-L2: No spinal canal or neural foraminal stenosis is identified. L2-L3: No spinal canal or neural foraminal stenosis is identified. L3-L4: Central disc protrusion with at least mild to moderate spinal canal stenosis. The neural jackson en are patent. L4-L5: Disc bulge with mild spinal canal stenosis. The neural foramen are patent are mild to moderate ly narrowed bilaterally. Left greater than right. L5-S1: Facet joint arthropathy and disc bulging result with mild spinal canal stenosis and moderate b ilateral neural foraminal stenosis. Other: Mild atherosclerosis of the arterial vasculature. IMPRESSION: 1. No evidence for spinal fracture. 2. Mild disc degeneration changes throughout the spine worse at L5-S1. No foraminal stenosis at bilat eral L5-S1 with at least moderate. 3. L3-L4 central disc protrusion suggested. With mild spinal canal stenosis.
== END | disposition home or self-care (01) ==
LOC: RADCTMAIN 15:42
PROVIDERS: ATTEND Orthopaedic Surgery
DX: M47.26 Other spondylosis with radiculopathy, lumbar region (principal); M46.1 Sacroiliitis, not elsewhere classified; Z96.641 Presence of right artificial hip joint
CPT/HCPCS: 72193; 72131; Q9967

== ENCOUNTER 2023-04-20 11:33 | Inpatient (IN) | payer MEDICARE ==
[2023-04-16 13:12] VITALS: BMI 24.4
[~2023-04-20 11:33] MED LIST changes: +ACETAMINOPHEN TAB 500 MG TAB PO PRN; +GABAPENTIN 300 MG CAP PO PRN; +HYDROmorphone 0.5 MG/0.5 ML SYRINGE IVP PRN; -LACTATED RINGERS 1,000 ML IV SCH; +LIDOCAINE 1% (10MG/ML) FOR IV START INTRADERMA PRN; +ONDANSETRON 4 MG/2 ML VIAL IVP PRN; +TRANEXAMIC 1,000 MG/100ML-NACL 1,000 MG in SALINE 1 100ML.BAG IVPB PRN
--- NOTE | 2023-04-20 11:35 | P.HPOR ---
History of Present Illness H&P Date: 04/13/23 .D:Date: 04/13/23 : 04:45pm .T:Title: [facility] Date of :[birth year] R14 Allergies: Age: 57 year Height: 6'1" Weight: 175 lbs BP:/ BMI: 23.09 kg/m2 Occupation: Disability VAS: 8 CHIEF COMPLAINT: Low back pain, SIJ pain, Leg pain and weakness DOI: N/A DOS: N/A Duration of current treatment regiment: > 6 months HISTORY: Xrays No new xrays taken in office today. Trauma or injury No Work-Related No Pain description Aching, burning, increasing Location Diffuse Patient notes that their pain radiates to right lower extremity Activity Modification Yes Hand Dominance Right TREATMENTS COMPLETED: 6 weeks of PT completed? Month and Year of last PT date? Yes How many sessions? 12 Did it help? no Physician directed home exercise completed? Yes Medications Yes; List: Howe & Morphine Alternative interventions Chiropractic: No Massage therapy:No R.I.C.E:Yes Brace:Yes SI belt Injections Yes How many? x3 SIJ injections. 80% relief with most recent one for 3 days. x2 injections [address] Dr[address] Carlin and x1 with myself. Did they help? yes temporary 3 days RFA:No Mr. Monroe returns to the office today for a pre-operative appointment preceding his L5 to pelvis decompression and fusion with bilateral SI joint fusi on, open, L5-S1 posteriolateral and interbody fusion with pelvic Bedrock construct. He continues to have significant pain that has progressively gotten worse over the past few weeks.Patient reports pain in his lower back that radiates into his hips and bilateral lower extremities. After his most recent SIJ injection with myself he states 80% relief for about 3 days. Taylor has had two other SIJ injections with Dr. Carlin and had similar relief that was transient. He continues to have low back pain, b/l SIJ pain, pain that travels down his leg and around his hips that they translates down past his knees and into his feet. He c/p paresthesias on the top of his foot and in his calf and states cramping in his calves b/l with walking which gets better if he walks bent over a cart or his cane. He states some scrotal pain as well but has a hx of a hernia repaired several years ago. Patient is currently taking Howe and Morphine for his pain and symptoms. He states no bowel or bladder issues. He states no perineal numbness/tingling at this time. Patient ambulates with a walker. History: Mr. Monroe presents via phone call on 02/19/23 regarding his low back pain, SIJ pain, LE radiculopathy and weakness. He continues to have significant pain that has progressively gotten worse over the past few weeks. After his most recent SIJ injection with myself he states 80% relief for about 3 days. Taylor has had two other SIJ injections with Dr. Carlin and had similar relief that was transient. He continues to have low back pain, b/l SIJ pain, pain that travels down his leg and around his hips that they translates down past his knees and into his feet. He c/p paresthesias on the top of his foot and in his calf and states cramping in his calves b/l wich walking which gets better if he walks bent over a cart or his cane. He states some scrotal pain as well but has a hx of a hernia repaired several years ago. He states no bowel or bladder issues. He states no perineal numbness/tingling at this time. Mr. Monroe presents to the office on 11/29/22 for an evaluation of their chronic low back pain. Patient states that he has been experiencing an ache- like, burning pain throughout the lumbar spine that has been ongoing for several years with no known injury or trauma to indicate an exact onset of their symptoms. In addition to their lumbar pain, they do report that it radiates into the posterior aspect of the right lower extremity, associated with numbness and tingling. Mr. Monroe's symptoms are exacerbated with prolonged sitting or standing, and due to this they note that it is increasingly difficult to complete many of their daily tasks. Patient is having moderate sleep disturbances as well due to their ongoing pain and associated symptoms. Regarding treatments, the patient has previously trialed physical therapy, medication management, and at home ice/heat therapies. The patient states that physical therapy has provided them with some improvement in their symptoms. The patient denies trialing any other modalities at this time. For their symptoms, the patient has been taking Baclofen, Howe, and Morphine with some sustained relief. Otherwise the patient denies any f/c/sob/cp, no incision concerns, no bladder or bowel retention/incontinence, no perineal numbness/tingling, and ambulates with a walker today. The patients' past social, medical, family, surgical history, as well as review of systems, have been reviewed. Please refer to the Neurosurgery History and Physical form that has been scanned in to our electronic medical record system. 14 points review of systems completed and as stated in HPI, all other systems reviewed are negative. Social History: [id number]:current smoker P3 Smoking Amount:1/2 PPD Alcohol: currently drinks alcohol, 1/week Family History: Q7Roukoe: , blood cancer P2 Father: , coronary artery disease Sibling(s): living, coronary artery disease Family History: coronary artery disease blood cancer Past Medical History: ANXIETY/DEPRESSION COPD Surgical / Procedural History: RIGHT TOTAL HIP ARTHROPLASTY Current Medications: P1Rx: baclofen 20 mg tablet Ref: 0 Rx: DULoxetine 30 mg capsule,delayed release Ref: 0 Rx: HYDROcodone 7.5 mg-acetaminophen 325 mg tablet Ref: 0 Rx: mirtazapine 30 mg tablet Ref: 0 Rx: pantoprazole 40 mg tablet,delayed release Ref: 0 Rx: risperiDONE 3 mg tablet Ref: 0 Rx: morphine 15 mg immediate release tablet Ref: 0 Rx: Lyrica 150 mg capsule Ref: 0 Rx: morphine Ref: 0 Rx: Howe Ref: 0 Rx: Lyrica 150 mg capsule Ref: 0 PHYSICAL EXAMINATION: General:Awake, alert, appropriate for age, in no acute distress. HEENT:No unusual neck masses around region of lateral neck triangle, thyroid, supraclavicular groove Heart:Regular rate and rhythm, normal S1, S2 and no murmur/gallop. Lungs:Clear to auscultation bilaterally with no use of accessory muscles. Extremities: Skin warm and dry without acute lesions, coloration, temperature, skin intact, no tenderness or erythema Integument: Hairy patches:ABSENT Dorsal skin dimples:ABSENT Cafe au lait spots:ABSENT Palpation: Please see Pain drawing on Intake sheet for further detail. Midline spinal tenderness:No E6 Cervical Tenderness: No E6 Paralumbar tenderness:No E6 Parathoracic tenderness:No E6 Buttocks tenderness:No E6 Sacroiliac Testing: TTP Yes, right side Positive compression Neg Distraction Positive FABER4 Positive Thigh Thrust Positive Alejandro test POSTURAL and MUSCULO-SKELETAL EVALUATION: Coronal Balance: NEUTRAL Recumbent testing: Patient isable to lay flat on back Sagittal Balance: NEUTRAL Shoulder Profile: LEVEL Pelvic Girdle: LEVEL Neck ROM: UNRESTRICTED Lumbar ROM: UNRESTRICTED Shoulder ROM: Symmetrical Hip ROM: Symmetrical Knee ROM: Symmetrical Hands: Normal appearance, symmetrical Feet: Normal appearance, Symmetrical VASCULAR STATUS : LEFTRIGHT Wrist Pulses INTACT INTACT Pedal Pulses (Dors. pedis & post.tibialis) INTACT INTACT Color NORMAL NORMAL Edema Absent Absent NEUROLOGIC EXAMINATION: Mental Status:Awake and alert, fully oriented, with normal attention, concentration and memory, and fluent, appropriate speech. Cranial Nerves: I: Olfactory not tested. II: Visual acuity normal, no visual field deficit noted with confrontation. III,IV: Normal pupillary reflexes & intact extraocular movements without nystagmus. V,: Intact symmetrical facial sensation. VII: Intact symmetrical facial motor movement VIII: Hearing intact. IX,X: Intact gag, swallow, & normal voice. XI: Sternocleidomastoid, trapezius function intact. XII: Tongue midline with normal movements. L'hermitte's Sign:Negative / absent Spurling'Sign: Absent bilaterally. Cubital percussion test:Absent bilaterally. Fuentes-Tinel sign - Carpal region:Absent bilaterally. Straight Leg Raising: Absent bilaterally. Crossed straight leg raise: negative MOTOR EXAM (0-5/5, N/T Muscle appearance:Symmetrical, without signs of atrophy or dystrophy UPPER EXTREMITY RIGHT LEFT Shoulder Abduction 5/5 5/5 Biceps 5/5 5/5 Triceps 5/5 5/5 Wrist Extension 5/5 5/5 Hand Intrinsic 5/5 5/5 Bag Mender 5/5 5/5 Hand and finger dexterity intact bilaterally? yes Disdiadochokinesis examination negative bilaterally? yes LOWER EXTREMITY RIGHT LEFT Hip Flexion 4/5 4/5 Knee Extension 4/5 4/5 Knee Flexion 4/5 4/5 Dorsiflexion 4/5 4/5 Plantarflexion 4/5 4/5 EHL 4/5 4/5 FHL 4/5 4/5 OMI: positive Toe heel walk / heel-toe walk intact while maintaining satisfactory balance? yes Squatting/straightening w/o assistance to a min of 60 degree knee flexion? yes Single leg stance: intact Trendelenburg sign negative bilaterally REFLEXES(0-4/2, NT)Upper ExtremityLower Extremity Right 2 2 Left 2 2 Pathological Reflexes RIGHT LEFT Fuentes's Absent Absent Clonus Absent Absent Babinski Absent Absent Sensory system (0-4, N/T) Test type RU DENNISE RL LL Joint-Position 2 2 2 2 Vibration 2 2 2 2 Pain & LT sense 2 2 2 2 Dermatomal Deficit: None None None None Pertinant positives include pain with ROM of the lumbar spine and TTP of the lumbar spine as well as the SIJ b/l. SIJ show + compression; FABER4; Hip thrust and Thigh thrus b/l which make it difficut for him to walk. He has neg Distraction. He has +SLR signs on the Left and neg on the right. 2/4 DTR all Dermatomal distribution of pain and radiculopathy is in the L5-S1 b/l 2/4 distal pulses all, no edema Gait and Functional Evaluation: Ambulatory aids:Walker Romberg's test:Intact bilaterally Steady Gait RADIOGRAPHIC STUDIES: images reviewed demonstrate spondylosis of L5-S1 with endplate sclerosis and disc height loss. There is facet arthropathy as well which is noted at L5-S1. There are no acute fractures or dislocations noted. There is flattening of the normal lumbar lordosis due to this collapse segmentally to around 20 with a pelvic incidence of around 48. There are no acute fractures noted. There is no lesions noted. AP pelvis demonstrate postsurgical changes of the right hip with right hip arthroplasty in place no evidence of loosening fracture failure. Mild HO noted around the greater trochanter. There is bilateral SI joint sclerosis noted. Old superior pubic rami fracture on the right noted. images reviewed demonstrate spondylosis L5-S1 with vacuum disc phenomena. There is retrolisthesis L5 on S1. Facet arthrosis is noted. Flattening again of the normal lumbar lordosis secondary to these changes. Postsurgical changes noted of the right hip with hip arthroplasty in place again processes seen. Bilateral SI joint sclerosis noted. No acute fracture seen.old superior pubic rami fracture on the right noted. images reviewed demonstrate spondylosis L5-S1 with disc height loss facet arthrosis ligamental hypertrophy there is moderate bilateral foraminal stenosis due to this. There is mild central stenosis due to this. Again retrolisthesis noted along with Modic endplate changes type II. No acute fracture or dislocation was noted. No lesions noted. IMPRESSION AND PLAN: It was my pleasure to have seen and examined Oz. I reviewed the patient's clinical syndrome, physical findings, and imaging studies during the appointment today. It is my impression that the patient has a diagnosis of. 1. L5-S1 spondylosis with stenosis and bilateral foraminal 2.bilateral SI joint osteoarthritis with sacroiliitis 3. lumbar radiculopathy 4. Mechanical low back pain 5. Lower extremity weakness I outlined the natural course history without intervention and various interventional options. Based on my findings I suggest the following course of action: - we discussed at length different options for surgical and nonsurgical treatment at this time the patient has exhausted nonsurgical treatment including injections and physical therapy medications orally prescribed as well as [id number]. He continues to have symptoms and now his symptoms seem to be progressing and getting worse. We discussed options for surgery including stage surgery as well as non-stage. The patient has elected to proceed with scheduling surgical intervention. We discussed the risks and benefits of this and he understands is willing to proceed. - I discussed treatment options with the patient, including operative and non- operative options, and they have elected to proceed with the following surgical procedure: L5 to pelvis decompression and fusion with bilateral SI joint fusion, open, L5-S1 posteriolateral and interbody fusion with pelvic Bedrock construct The indications, risks, benefits, and alternatives to surgery were discussed with the patient and family at length. Specifically (but not limited to) the risks of infection, stiffness, recurrence of symptoms, need for revision surgery, local numbness, neurovascular injury, and blood clots were discussed. The patient's questions were answered. The decision to proceed was made. Consent will be obtained for the procedure. Spine Surgery Risk Review Mr. Monroe is presenting for evaluation of low back pain and bilateral SI joint pain lower extremity weakness with radiculopathy. It was my pleasure to have seen and examined Mr. Monroe. In our visit today we have had a chance to go over subjective complaints, physical examination findings and treatments including the natural course history without intervention and various interventional options. The patients imaging demonstrates: images reviewed demonstrate spondylosis of L5-S1 with endplate sclerosis and disc height loss. There is facet arthropathy as well which is noted at L5-S1. There are no acute fractures or dislocations noted. There is flattening of the normal lumbar lordosis due to this collapse segmentally to around 20 with a pelvic incidence of around 48. There are no acute fractures noted. There is no lesions noted. AP pelvis demonstrate postsurgical changes of the right hip with right hip arthroplasty in place no evidence of loosening fracture failure. Mild HO noted around the greater trochanter. There is bilateral SI joint sclerosis noted. Old superior pubic rami fracture on the right noted. images reviewed demonstrate spondylosis L5-S1 with vacuum disc phenomena. There is retrolisthesis L5 on S1. Facet arthrosis is noted. Flattening again of the normal lumbar lordosis secondary to these changes. Postsurgical changes noted of the right hip with hip arthroplasty in place again processes seen. Bilateral SI joint sclerosis noted. No acute fracture seen.old superior pubic rami fracture on the right noted. images reviewed demonstrate spondylosis L5-S1 with disc height loss facet arthrosis ligamental hypertrophy there is moderate bilateral foraminal stenosis due to this. There is mild central stenosis due to this. Again retrolisthesis noted along with Modic endplate changes type II. No acute fracture or dislocation was noted. No lesions noted. On physical exam, Mr. Monroe demonstrates: low back pain tenderness to palpation of bilateral SI joints with positive SI findings bilaterally lower extremity weakness with radiculopathy and straight leg raise. I have explained to the patient that as their condition progresses it will cause further neurological deficits and eventual paralysis. Based on the patients imaging, physical exam, and the rapid progression and disabling nature of their symptoms, at this time I recommend surgery in the form of a: L5-S1 posterior lateral and interbody fusion with attachment to the pelvis and bilateral open SI fusion and a bed rock construct . I discussed the risk and benefits of this procedure at length with Mr. Monroe. The patient agreed to considered pursuing the procedure abovementioned. Prior to surgery, she should follow up with her PCP (Cardio, ID, IM etc) for clearance. Questions were invited and answered, and the patient wishes to proceed as outlined below. Currently, I am recommendin.L5-S1 posterior lateral and interbody fusion with attachment to the pelvis and bilateral open SI fusion and a bed rock construct 2.Follow up with PCP for surgical clearance 3.Review of surgical risks and benefits as well as an educational packet on the proposed surgical procedure. Risks: All surgical procedures come with inherent risks, including those related to positioning, anesthesia, intraoperative findings, and postoperative complications. It is important to understand that surgery does not come with any guarantee of a successful outcome as complications and adverse events are always possible. The patient was given a handout in office today discussing the surgical procedure and risks associated with the intervention, both of which were discussed with the patient. These risks include but are not limited to the following: * Experiencing same, different or even worse symptoms in back, neck, arms, or legs compared to before surgery. Requiring further surgery or other forms of treatment presently or at some time in the future at same or other levels of the intended spine surgery. On an extreme but fortunately relatively rare basis severe complication such as blindness, stroke, heart attack, temporary and/or permanent nerve injury, paralysis, coma, or may occur, sometimes without known explanation. Surgical complications may include but are not limited to risk of infection, fluid accumulation in the surgical dissection site, including a seroma or hematoma, that requires additional surgery, wound drainage, bleeding, new numbness or weakness, vision changes/loss, spinal fluid leakage, non-healing and/or infected incision, headaches, difficulty or inability to swallow, hoarseness, hemopneumothorax, pneumothorax, impotence, retrograde ejaculation, vaginal dryness; injury to nerves, spinal cord, blood vessels, lymphatics or other vital organs (i.e., bowel injury, injury to the great vessels); heterotopic bone formation; complications related to the hardware such as screws, rods, cages including misplaced hardware, device failure, instrumentation at the wrong spine level, hardware fracture/breakage, or hardware loosening; vertebral failure of the spinal column above or below the newly placed hardware; retained surgical instrumentations or devices and the need for further surgery. * Medical risks of the planned spine surgery include but are not limited to generalized Infections to the whole body or local areas outside of the surgical site (sepsis), heart attack, bleeding, anaphylaxis, meningitis, seizure, epilepsy, hearing loss, burn berg, laceration of the head or other areas of the body, bruising, hypersensitivity of the skin, bladder over distension; allergic reaction; shoulder injury related to positioning; fat, blood and air clots to other areas of the body like heart, lungs, brain; failure of internal organs such as lungs, kidneys, liver and excessive bleeding. If blood transfusions are necessary, note that transfusions may cause intolerance reactions such as anaphylaxis or other complex reactions. Despite best efforts, the results of spine surgery might not heal in terms of b one, soft tissues such as skin, fascia, ligaments, and joints. Additionally, in order to achieve best possible results, spine surgery may be carried out beyond the initially planned levels and involve decompression, fusion including insertion of hardware at levels other than the original intended area of surgical interest change some portions of the procedure in order to ensure the best possible outcomes. With spine surgery and spinal fusion, there are different off label uses of instrumentation (devices, implants and hardware) as well as biological substances (bone morphogenic proteins, demineralized bone matrix) as well as using extra bone from allograft sources (i.e. cadaver bone) or autograft (iliac crest bone, ribs, or the spine itself). The patient has been given information about these practices and their inherent risks and benefits. [facility] is an educational center that serves as a training facility for neurosurgical and orthopedic PUBLICATION EDITOR and Nursing students. Physician assistants are medically trained surgical providers who function in the outpatient, inpatient, and operating room setting under the direct supervision of the attending surgeon. [facility] has multiple operating rooms with single and overlapping rooms running daily. They currently function under the required guidelines as produced by the [facility] Finance Committee with regards to the overlapping rooms and will continue to comply with changes to this policy as they occur. The requirements include and are complied with as follows: (1) the critical portions of the overlapping rooms will not occur at the same time, (2) the attending physician will be physically present during the critical portions of the procedure and immediately available during the entire case, and (3) a back-up attending is designated should the primary attending not be immediately available. The patient has had a chance to review all the listed information, has been given print outs detailing this information, and has had all his/her questions answered to their satisfaction. It was my pleasure to have seen and examined Mr. Monroe. In our visit today we have had a chance to go over my understanding of our patient's current condition, the natural course history without intervention and various interventional options. Questions were invited and answered, and the patient wishes to proceed as outlined above. I have seen and examined the patient for 25 minutes and we have spent more than 50% of the time in repeat and detailed counseling about the patient's condition, its natural course history with out and as much as can be predicted with surgery and re-review of various surgical treatment options. In conclusion, Mr. Monroe and spouse requested we proceed with the above suggested surgery and are willing to accept risks and limitations of the suggested surgery as nature of the disease process and our best attempts at treatment for the condition. Thank you again for allowing us to be part of your patient's care. Please don't hesitate to contact me if you have any further questions. Follow-up: Post procedure Patient Education: (Informational booklet, instructions, etc) given at today's appointment: Yes .ED:Patient Education: Y Medications Reviewed: YES In our visit today Mr. Monroe and I have had a chance to go over my und erstanding of the patient's current condition, the natural course history without intervention and various interventional options. Questions were invited and answered, and the patient wishes to proceed as outlined above. I will be sure to keep you updated afterMr. Monroe returns here for further follow-up. Thank you again for your referral. Please do not hesitate to contact me if you have any further questions. Signed and authenticated by: Jalen Bowie [facility] [address] [place] [id number] This message is confidential, intended only for the named recipient(s) and may contain information that is privileged or exempt from disclosure under applicable law. If you are not the intended recipient(s), you are notified that the dissemination, distribution or copying of this information is strictly prohibited. If you received this message in error, please notify the sender then delete this message. Patient verbalizes understanding of the information discussed. The above note was initiated by Cesar Betancur, physician recording community program assistant for Dr. Jalen Parks. This note has been reviewed by Dr. Parks, who has made his personal changes and impressions for this document. CC: Mack Fox D.O. # SIGNED BY Jalen Parks (GOO)04/19/2023 12:18PM Past Medical History Past Medical History: Chest Pain / Angina, Heart Failure, COPD, Eye Disorder, Musculoskeletal Disorder, Neurologic Disorder Additional Past Medical History / Comment(s): COVID 17 January-Jan 2022, Multiple sclerosis USES A CANE/ walker TO AMBULATE, falls. has had in past occasional DOUBLE VISION. CHRONIC BACK NECK PAIN. HAD SPINAL STIMULATOR, THEN REMOVED; Migraine headache. Crohn's disease.lt ear [place] History of Any Multi-Drug Resistant Organisms: None Reported, MRSA Date of last positivie culture/infection: 2014 MDRO Source:: lower back Past Surgical History: Appendectomy, Back Surgery, Bowel Resection, Hernia Repair Additional Past Surgical History / Comment(s): CERVICAL FUSION. SPINAL STIMULATOR implantation, revision and removal. FOREIGN BODY REMOVED RT CHEST WALL. 10/18/2015 wire removed from back. (from stimulator) Past Anesthesia/Blood Transfusion Reactions: Previous Problems w/ Anesthesia Additional Past Anesthesia/Blood Transfusion Reaction / Comment(s): STATES TAKES A LONG TIME TO WAKE UP Additional Psychological History / Comment(s): Pt resides with his spouse and 3 sons. He uses a walker. He drives. - Past Family History Father Family Medical History: Cancer, Diabetes Mellitus Additional Family Medical History / Comment(s): CABG-TRIPLE BYPASS, Mother Family Medical History: Cancer, CVA/TIA, Diabetes Mellitus Additional Family Medical History / Comment(s): Stroke Brother(s) Additional Family Medical History / Comment(s): cardiomyopathy Medications and Allergies Home Medications Medication Instructions Recorded Confirmed Type Baclofen [Lioresal] 20 mg PO BID 12/21/15 04/16/23 History HYDROcodone/APAP 7.5-325MG [Howe 1 tab PO BID 04/17/20 04/16/23 History 7.5-325] Pantoprazole Sodium [Protonix] 40 mg PO DAILY 04/17/20 04/16/23 History QUEtiapine [SEROquel] 50 mg PO HS 09/14/21 04/16/23 History SUMAtriptan succinate [Imitrex] 50 mg PO BID PRN 09/14/21 04/16/23 History rOPINIRole HCL [Requip] 1 mg PO HS 09/17/21 04/16/23 History Spironolactone [Aldactone] 25 mg PO DAILY #30 tab 12/26/21 04/16/23 Rx Morphine Sulfate ER [Ms Contin] 30 mg PO Q12H 03/06/22 04/16/23 History carvediloL [Coreg] 6.25 mg PO BID 04/06/22 04/16/23 History DULoxetine HCL [Cymbalta] 30 mg PO HS 08/17/22 04/16/23 History Furosemide [Lasix] 20 mg PO BID 08/17/22 04/16/23 History Losartan [Cozaar] 25 mg PO DAILY 08/17/22 04/16/23 History Mirtazapine [Remeron] 30 mg PO HS 08/17/22 04/16/23 History Tiotropium 18 Mcg/Puff [Spiriva] 2 puff INHALATION DAILY 01/17/23 04/16/23 History Aspirin [[place] Aspirin EC] 81 mg PO DAILY 01/22/23 04/16/23 History Allergies Allergy/AdvReac Type Severity Reaction Status Date / Time lisinopril Allergy Swelling Verified 04/16/23 12:20 of the mouth Physical Examination Osteopathic Statement: *. No significant issues noted on an osteopathic structural exam other than those noted in the History and Physical/Consult.
[2023-04-20] MEDS: LACTATED RINGERS 1,000 ML IV SCH ×2 (12:30→12:40)
[2023-04-20] MEDS ORDERED: LIDOCAINE 1% (10MG/ML) FOR IV START INTRADERMA ONE (12:40)
[2023-04-20] MEDS ORDERED: MIDAZOLAM 2 MG/2 ML VIAL IVP ONE (12:58)
[2023-04-20] MEDS ORDERED: fentaNYL (PF) 50 MCG/ML 2 ML AMP IVP ONE (12:58)
--- NOTE | 2023-04-20 13:20 | P.ANPRN ---
Procedure Note - Anesthesia - Invasive Line Left Arterial Line Time Out Performed: Yes (1258) Date of Procedure: 04/20/23 Time of Procedure: 12:59 Location of Patient: PreOp Preparation: Sterile Prep, Sterile Dressing Arterial Line Location: Radial Ultrasound Used: No Purpose - Visualization and Identification of Vasculature: No Needle Guage: 20g Image Stored and Saved: No Narrative: Central line placement per sterile protocol utilized. 1 attempt. Bled and flushed.
[2023-04-20] MEDS ORDERED: GLYCOPYRROLATE 0.2 MG/ML 2 ML VIAL ONE (13:21)
[2023-04-20] MEDS ORDERED: PROPOFOL 10 MG/ML 20 ML VIAL IV ONE (13:21)
[2023-04-20] MEDS ORDERED: KETAMINE HCL IN 0.9 % NACL 50 MG/5 ML SYRINGE ONE (13:21)
[2023-04-20] MEDS ORDERED: TRANEXAMIC 1,000 MG/100ML-NACL PREMIX BAG ONE (13:21)
[2023-04-20] MEDS ORDERED: HYDROmorphone (PF) 1 MG/ML ONE (13:21)
[2023-04-20] MEDS ORDERED: MIDAZOLAM 2 MG/2 ML VIAL ONE (13:21)
[2023-04-20] MEDS ORDERED: PHENYLEPHRINE-0.9% NACL SYG 1,000 MCG/10 ML SYRINGE ONE (13:21)
[2023-04-20] MEDS ORDERED: fentaNYL (PF) 50 MCG/ML 2 ML AMP ONE (13:21)
[2023-04-20] MEDS ORDERED: ROCURONIUM 10 MG/ML (5 ML VIAL) IV ONE (13:21)
[2023-04-20] MEDS ORDERED: NEOSTIGMINE 1 MG/ML 10 ML VIAL ONE (13:21)
[2023-04-20] MEDS ORDERED: LACTATED RINGERS 1,000 ML IV ONE ×2 (14:30→15:30)
[2023-04-20] MEDS ORDERED: GELATIN SPONGE,ABSORBABLE 1 GM POWDER TOPICAL ONE (14:36)
[2023-04-20] MEDS ORDERED: THROMBIN (BOVINE) 5,000 UNIT VIAL TOPICAL ONE (14:37)
[2023-04-20] MEDS ORDERED: GENTAMICIN 80 MG in SODIUM CHLORIDE 0.9% IRRIGATIO 3,000 ML IRRIGATION ONE (14:39)
[2023-04-20] MEDS ORDERED: ceFAZolin 3,000 MG in SODIUM CHLORIDE 0.9% IRRIGATIO 3,000 ML IRRIGATION ONE (14:40)
[2023-04-20] MEDS ORDERED: VANCOMYCIN 1,000 MG VIAL MISCELLANE ONE (16:24)
--- NOTE | 2023-04-20 16:50 | FL ---
EXAMINATION TYPE: FL guidance operating room, XR lumbar spine 2 or 3V DATE OF EXAM: 04/20/2023 Comparison: None Clinical History: 57-year-old male BILATERAL SACROILIAC OSTEOARTHRITIS SPONDYLOSIS Findings: Intraoperative fluoroscopy during placement of lumbar pelvic fusion hardware. We note left total hip arthroplasty partially visualized. BILATERAL SACROILIAC OSTEOARTHRITIS SPONDYLOSIS. 60 SECS FL. 3182.4 mGycm2 DAP. 2 images are provided . Impression: Intraoperative fluoroscopy as above.
--- NOTE | 2023-04-20 17:14 | P.OP ---
Date of Procedure: 04/20/23 Preoperative Diagnosis: 1. L5-S1 SPONDYLOSIS SEVERE WITH STENOSIS 2. B/L SIJ OA SEVERE 3. LOW BACK PAIN WITH DEGENERATIVE DISC DISEASE 4. LE PARESTHESIAS Postoperative Diagnosis: 1. L5-S1 SPONDYLOSIS SEVERE WITH STENOSIS 2. B/L SIJ OA SEVERE 3. LOW BACK PAIN WITH DEGENERATIVE DISC DISEASE 4. LE PARESTHESIAS Procedure(s) Performed: 1. BILATERAL OPEN SACROILIIAC JOINT FUSION (88798)/50 2. L5-S1 POSTERIOLATERAL AND INTERBODY FUSION (05767)/59 3. L5-PELVIS INSTRUMENTATION (73971) 4. ATTACHMENT OF CONSTRUCT TO BONY PELVIS (86528) 5. L5-S1 LAMINOFORAMINOTOMY FOR DECOMPRESSION AND CAGE PLACEMENT (47845) 6. INSERTION OF INTERBODY DEVICE L5-S1 (39054) 7. USE OF [employer] NAVIGATION FOR SCREW PLACEMENT (89828) USE OF IONMN ALL SCREWS TESTING > 20 mA Implants: -TJ EVEREST SCREW AND RODS -SI BONE PELVIC SCREWS GRANITE -TORQUE SCREWS SI FUSION CONSTRUCT -MAGNATOS, CONTOUR, AUTOGRAFT, ALLOCELL, ARTHROCELL Anesthesia: GETA Surgeon: Jalen Parks Block Breaker Operator #1: Jose De Jesus Bernal (WINDY Cunningham Was present and assisted with all aspects of the case from positioning to dressing placement) Estimated Blood Loss (ml): 150 IV fluids (ml): 1,200 Urine output (ml): 330 Pathology: none sent Condition: stable Disposition: PACU Indications for Procedure: Mr. Monroe is presenting for evaluation of low back pain and bilateral SI joint pain lower extremity weakness with radiculopathy. It was my pleasure to have seen and examined Mr. Monroe. In our visit today we have had a chance to go over subjective complaints, physical examination findings and treatments including the natural course history without intervention and various interventional options. The patients imaging demonstrates: images reviewed demonstrate spondylosis of L5-S1 with endplate sclerosis and disc height loss. There is facet arthropathy as well which is noted at L5-S1. There are no acute fractures or dislocations noted. There is flattening of the normal lumbar lordosis due to this collapse segmentally to around 20 with a pelvic incidence of around 48. There are no acute fractures noted. There is no lesions noted. AP pelvis demonstrate postsurgical changes of the right hip with right hip arthroplasty in place no evidence of loosening fracture failure. Mild HO noted around the greater trochanter. There is bilateral SI joint sclerosis noted. Old superior pubic rami fracture on the right noted. images reviewed demonstrate spondylosis L5-S1 with vacuum disc phenomena. There is retrolisthesis L5 on S1. Facet arthrosis is noted. Flattening again of the normal lumbar lordosis secondary to these changes. Postsurgical changes noted of the right hip with hip arthroplasty in place again processes seen. Bilateral SI joint sclerosis noted. No acute fracture seen.old superior pubic rami fracture on the right noted. images reviewed demonstrate spondylosis L5-S1 with disc height loss facet arthrosis ligamental hypertrophy there is moderate bilateral foraminal stenosis due to this. There is mild central stenosis due to this. Again retrolisthesis noted along with Modic endplate changes type II. No acute fracture or dislocation was noted. No lesions noted. On physical exam, Mr. Monroe demonstrates: low back pain tenderness to palpation of bilateral SI joints with positive SI findings bilaterally lower extremity weakness with radiculopathy and straight leg raise. I have explained to the patient that as their condition progresses it will cause further neurological deficits and eventual paralysis. Based on the patients imaging, physical exam, and the rapid progression and disabling nature of their symptoms, at this time I recommend surgery in the form of a: L5-S1 posterior lateral and interbody fusion with attachment to the pelvis and bilateral open SI fusion and a bed rock construct . I discussed the risk and benefits of this procedure at length with Mr. Monroe. The patient agreed to considered pursuing the procedure abovementioned. Prior to surgery, she should follow up with her PCP (Cardio, ID, IM etc) for clearance. Questions were invited and answered, and the patient wishes to proceed as outlined below. Currently, I am recommendin.L5-S1 posterior lateral and interbody fusion with attachment to the pelvis and bilateral open SI fusion and a bed rock construct Description of Procedure: L5-PELVIS open Decompression and fusion (loida) WITH B/L SIJ FUSION OPEN The patient was seen and examined in the preoperative area. All preoperative protocols were followed. Informed consent was obtained, risks and benefits of the procedure were discussed at length. Risks including bleeding infection damage to the surrounding tissue and risk of reoperation were discussed with the patient. Risk of anesthesia up to and including was discussed with the patient. These are outlined in the risk review. They were willing to accept these risks and all the risks of surgery. The patient was given a weight-based dose of antibiotics in the form of 2 g Ancef. The patient was seen and evaluated by the anesthesia team who deemed them fit for surgery. The site was marked, the patient was willing to proceed with the procedure. The patient was transferred to the operative suite by the Department of anesthesia. They were then drifted off to sleep by the department anesthesia and GETA was performed. The patient tolerated this well. Weston catheter was placed by nursing staff, a-traumatically. Once confirmation of lines and ventilation the patient was transferred to a prone Brian table very carefully. All bony prominences including wrists, elbows, axilla, chest, hips, and thighs, and feet were padded very well. Special attention was paid to the genitalia, and these were padded accordingly. SCDs were placed on bilateral lower extremities and were connected. Arms were well padded and placed on arm boards up and out in the 90/90 position. Once in position, again we confirmed good ventilation capabilities and that lines were running appropriately. The patients Lumbar spine was then exposed. 1010s were placed outlining the incision site. Standard alcohol was used to clean the incision site and allowed to dry. C-arm was used to needle localize the pedicles at L4-S1 and bio-gilles the patient and confirm level for incision which was marked with a skin marker. Operative briefing was performed with all teams and everyone in agreement to proceed. The patient was then prepped and draped in a normal sterile fashion. Timeout was then performed, and all parties agreed with the procedure to be performed. Midline skin incision was made over the previously bio-marked area and dissection taken down over the SP of L4-S1. L4-S1 was taken out over facet joints and TPs and a penfield 4 used to gilles the L4 pedicle. Lateral image used to confirm levels. Once confirmed, screws were proceeded to be placed b/l at pedicles from L5-pelvis using what3words Navigation. An SP clamp was used, 3D C arm spin obtained and confirmed to be accurate. Once this was confirmed screws were placed using a navigated aubrie, navigated awl-tap and navigated pick up driver. Once screws were placed they were confirmed to be in good position using AP and Lateral fluoroscopy. Pelvic screws were placed in a similar fashion. This was then followed by s2Ai type screws for formal open SIJ fusion. SIJ was decorticated with high speed aubrie thoroughly. and then in an S2 fashion using a high-speed bur lateral fluoroscopy inlet and outlet views were used to visualize the torque screws as they were put in bilaterally. For SI joint fusion. There were in good position along with the pelvic screws. The wound was then irrigated. Screws were tested and all tested above 20 mA. We then proceeded to decompression and cage placement. Attention was then turned to interbody fusion at L5-S1. Bilateral laminectomy, complete facetectomy and foraminotomy performed at L5-S1 using high speed aubrie and Kerrison rongeur. The ligamentum was removed and the dural sac decompressed. Exiting and traversing roots visualized and decompressed. Neural elements were then protected, and disc space accessed with an osteotome. Seque ntial shaving then done under lateral imaging and complete discectomy performed using neva, pituitary and curette. Once good bleeding endplates accomplished and good height yazdanism with trials, a combination of autograft, allograft and synthetic placed anterior in the disc space. The cage was then selected and impacted into place under lateral imaging. The cage was then Rotated into po sition restoring height, lordosis and alignment. The certified lactation educator was removed and the area inspected. certified lactation educator broke on rotation of the cage and the lateral fin is embedded in the cage and bone. It was stable and not going anywhere. Good cage placement, stable cage and no injuries. Area was irrigated copiously, and meticulous hemostasis achieved. The tubular retractor was then removed under direct visualization. Rods were then sized and selected and placed into Pelvic screws b/l. Set screws locked these in place and then sequentially reduced into S1 and L5 b/l for alignment yazdanism. This was accomplished. Set screws were then all placed and final tightened. A cross link was selected and placed and final tightened. TPs were then decorticated with a high speed aubrie. The wound was irrigated with 3L Ancef irrigation, 3L gentamicin irrigation and 3L NSS. Surgery was placed over the dura. Autograft and MagnatOs then placed in the posterolateral gutters and impacted into place. Deep drain placed and secured to the skin. Final images confirmed good placement of hardware and good reduction of listhesis as well as yazdanism of height and lordosis. Fascia was then closed with #1 PDS. this was followed by 1 strata fix. Deep subq closed with 0 Vicryl. Superficial subq closed with 2-0 Vicryl and skin with yvette. Wound edges approximated very well. Wound was then cleaned with alcohol and dried. Wounds dressed with Optifoam dressings. The patient was then transferred off the table back to their hospital bed a- traumatically. They were extubated by the department of anesthesia. They were then transferred to PACU in stable condition having tolerated the procedure with no complications.
[2023-04-20] MEDS ORDERED: MAGNESIUM HYDROXIDE 2,400 MG/30 ML CUP PO PRN (17:18)
[2023-04-20] MEDS ORDERED: HYDROcodone/APAP 5-325MG 1 EACH TAB PO PRN (17:18)
[2023-04-20] MEDS ORDERED: SENNOSIDES-DOCUSATE SODIUM 1 EACH TAB PO PRN (17:18)
[2023-04-20] MEDS ORDERED: HYDROmorphone 0.5 MG/0.5 ML SYRINGE IVP ONE ×2 (17:48→18:00)
[2023-04-20] MEDS ORDERED: SODIUM CHLORIDE 0.9% 1,000 ML IV ONE (18:35)
[2023-04-20] MEDS: ACETAMINOPHEN TAB 325 MG TAB PO SCH (18:53)
[2023-04-20] MEDS: HYDROmorphone 1 MG/ML 1 ML SYRINGE IVP PRN ×2 (18:54→21:49)
[2023-04-20] MEDS: CYCLOBENZAPRINE 5 MG TAB PO PRN (20:25)
[2023-04-20] MEDS: GABAPENTIN 300 MG CAP PO SCH (21:25)
[2023-04-21] MEDS: ACETAMINOPHEN TAB 325 MG TAB PO SCH ×4 (00:05→17:45)
[2023-04-21] MEDS: HYDROcodone/APAP 10-325MG 1 EACH TAB PO PRN ×3 (00:11→15:19)
[2023-04-21] MEDS: HYDROmorphone 1 MG/ML 1 ML SYRINGE IVP PRN ×4 (01:14→20:39)
[2023-04-21] MEDS: GABAPENTIN 300 MG CAP PO SCH ×3 (08:18→20:39)
[2023-04-21] MEDS: CYCLOBENZAPRINE 5 MG TAB PO PRN (08:18)
--- NOTE | 2023-04-21 08:43 | P.PN ---
Subjective Progress Note Date: 04/21/23 Principal diagnosis: 1. L5-S1 SPONDYLOSIS SEVERE WITH STENOSIS 2. B/L SIJ OA SEVERE 3. LOW BACK PAIN WITH DEGENERATIVE DISC DISEASE 4. LE PARESTHESIAS Patient was seen at bedside this morning resting comfortably in the semirecumbent position. Drain is in place over lumbar spine with dressing. Weston is in place as well. Patient says he is having some minor low back pain but is complaining more of right lower extremity pain radiating from the upper thigh down to the right ankle. Patient denies any other issues at this time. Patient says she is looking forward to working with physical therapy later this morning and getting up. Patient would like to have Weston removed because he said he did have some burning overnight. Patient denies any other issues at this time. Patient denies chest pain, fever, shortness of breath, nausea, vomiting, change in vision, loss of bowel/bladder control. Objective - Vital Signs Vital signs: Vital Signs Temp 97.3 F L 04/21/23 00:43 Pulse 73 04/21/23 00:43 Resp 18 04/21/23 00:43 BP 106/61 04/21/23 00:43 Pulse Ox 97 04/21/23 00:43 FiO2 Intake & Output 04/20/23 04/21/23 04/21/23 18:59 06:59 18:59 Intake Total 4002 Output Total 1500 2024 Balance 2502 -2024 Weight 81 kg Intake: IV 4002 Output: Drainage 125 Right Lower Posterior 125 Back Urine 1250 1900 Estimated Blood Loss 250 Other: Voiding Method Indwelling Catheter - Exam Inspection: Drain is in place over the lumbar spine. 125 mL serosanguineous output and drain overnight. We will maintain drain today to suction. Dressing appears to be clean, dry, intact. Minimal spotting at the superior portion of dressing. Carol appeared to be well aligned and in place. Sensation: Equal, symmetric, bilaterally intact throughout the upper and lower extremities Palpation: There amount of tenderness to palpation throughout the lower lumbar spine and bilateral SI joints. Nontender to palpation throughout rest of exam Range of motion: Patient does have similar range of motion in the bilateral hips due to referred pain from the low back. Patient has full range of motion throughout the bilateral upper extremities and throughout rest of lower extremities on exam. Motor: 4/5 in all major motor groups in bilateral lower extremities. 5/5 in all major motor groups in bilateral upper extremitie Special tests: Negative Tana bilaterally. Negative clonus bilaterally. Negative Homans bilaterally Neurovascular status: Radial pulses intact, 2+ bilaterally. DP pulses palpable bilaterally. Cap refill under 3 seconds in digits of the upper extremities Assessment and Plan Assessment: 1. L5-S1 SPONDYLOSIS SEVERE WITH STENOSIS 2. B/L SIJ OA SEVERE 3. LOW BACK PAIN WITH DEGENERATIVE DISC DISEASE 4. LE PARESTHESIAS - Postop day 1 status post L5 to S1 decompression and fusion Plan: 1. L5-S1 SPONDYLOSIS SEVERE WITH STENOSIS; B/L SIJ OA SEVERE; LOW BACK PAIN WITH DEGENERATIVE DISC DISEASE; LE PARESTHESIAS - surgery performed yesterday, 04/20/2023 L5 to S1 decompression and fusion. Patient stable at bedside with dressing intact. 125 mL serosanguineous output in drain overnight. We well maintain drain and dressing at this time. Patient to work with PT/OT later this morning. Remove Weston today. Pain medication as needed. Back brace on while up and about. We will continue to follow patient during his stay in hospital. 2. Appreciate medical management 3. Pain management - [place]; gabapentin; Flexeril 4. DVT prophylaxis - mechanical 5. GI prophylaxis - senna; milk of magnesia 6. PT/OT - weightbearing as tolerated with walker and brace on while up and about 7. Encourage incentive spirometer use 8. Discharge planning - pending Time with Patient: Less than 30
[2023-04-21 09:38] LABS: HCT 33.7 % (39.6-50.0); HGB 10.8 d/dL (13.0-17.0); MCH 30.9 pg (27.0-32.0); MCV 96.6 FL (80.0-97.0); Mean Platelet Volume 10.1 FL (9.5-12.2); NRBC Per 100 WBC 0 X 10*3/uL (0.00-0.01); Platelet Count 250 X 10*3/uL (140-440); RBC 3.49 X 10*6/uL (4.40-5.60); RDW 12.1 % (11.5-14.5); WBC 13.06 X 10*3/uL (4.50-10.00)
[2023-04-21 09:48] LABS: BUN/Creat Ratio 8.29 Ratio (12.00-20.00); Blood Urea Nitrogen 5.8 mg/dL (9.0-27.0); Calcium 8.2 mg/dL (8.7-10.3); Carbon Dioxide 29.2 mmol/L (21.6-31.8); Chloride 102 mmol/L (96-109); Glucose 97 mg/dL (70-110); Potassium 4.2 mmol/L (3.5-5.5); Sodium 137 mmol/L (135-145)
[2023-04-21 10:58] LABS: Basophils # (A) 0.04 X 10*3/uL (0.00-0.10); Basophils % (A) 0.3 %; Eosinophils # (A) 0.04 X 10*3/uL (0.04-0.35); Eosinophils % (A) 0.3 %; Lymphocytes # (A) 1.71 X 10*3/uL (0.90-5.00); Lymphocytes % (A) 13.1 %; Monocytes # (A) 1.54 X 10*3/uL (0.20-1.00); Monocytes % (A) 11.8 %; Neutrophils # (A) 9.71 X 10*3/uL (1.80-7.70); Neutrophils % (A) 74.3 %; RBC Morphology Normal (Normal)
--- NOTE | 2023-04-21 13:08 | CT ---
EXAMINATION TYPE: CT lumbar spine wo con CT DLP: 1053.6 mGycm, Automated exposure control for dose reduction was used. DATE OF EXAM: 04/21/2023 7:42 AM COMPARISON: Intraoperative spot views 04/20/2023, CT lumbar spine 04/11/2023. CLINICAL INDICATION:Male, 57 years old with history of s/p L5-S1 decompr fusion; PHH, S/P Lumbar fusi on L5-S1 TECHNIQUE: Multiple axial images were obtained from the midportion of T11 through the sacroiliac rebeca nts. Soft tissue and bone windows in coronal and sagittal planes were obtained and reviewed. 3-D ref ormats of the bones were created on a separate workstation and submitted for review. Contrast used: None. Oral contrast used: None. FINDINGS: Alignment: There appear to be 5 lumbar-type vertebral bodies, with normal alignment. Bone: Vertebral body heights are preserved. No fracture or osseous destructive process is seen. Bila teral pedicle screws are present at L5 and S1, with posterior fixation rods connecting to bilateral f ixation screws which traverse the SI joints; the hardware appears intact and normally aligned. Additi onal bilateral screws are seen traversing the SI joints, but these do not appear to be connected to t he rest of the hardware, and are likely abandoned. Laminectomies with removal of the spinous processe s L5-S1. Prosthetic disc interspace material L5-S1. Infusion catheter enters from a right posterior a pproach entering into the spinal canal at the upper aspect of L5 terminating in the region of the lef t posterior paraspinous soft tissues. Discs: T12-L1: No spinal canal or neural foraminal stenosis is identified. L1-L2: No spinal canal or neural foraminal stenosis is identified. L2-L3: Mild facet arthropathy. Mild osseous narrowing of bilateral neural foramina. L3-L4: Mild facet arthropathy. Mild osseous narrowing of bilateral neural foramina. L4-L5: Mild/moderate facet arthropathy, greater on the right. Moderate right and milder left neural f oraminal stenosis. L5-S1: Underlying mild degenerative disc disease with small marginal osteophytes, mostly anterior. Mi ld narrowing of the right neural foramen. Other: Partially visualized right total hip arthroplasty. Mild degenerative changes of the SI joints. A few small scattered hypodensities throughout the liver, not fully characterized. Visualized gallbl adder appears mildly distended. Mild bilateral perinephric stranding. Small low-attenuation nodule in the anterior right kidney extending towards Morison's pouch, not fully characterized but likely a cy st. Moderate stool in the visualized colon, with probable anastomosis on the right. Scattered colonic diverticula without clear evidence of diverticulitis. Mild atherosclerotic calcification of the abdo ursula aorta and branches, without evidence of AAA. Bladder is decompressed with a Weston catheter ball oon seen in the lumen. IMPRESSION: 1. Postoperative changes from recent [id number] pelvic fixation. Hardware appears intact and n ormally aligned. 2. No evidence of an acute bony normality. 3. Mild degenerative changes as above. 4. Incidental findings in the abdomen, including some low density hepatic lesions which are not full y characterized but favored to represent cysts or hemangiomas. Further evaluation with hepatic CT or MRI may be considered.
--- NOTE | 2023-04-21 13:18 | P.CONS ---
History of Present Illness - Reason for Consult Consult date: 04/21/23 Medical management - History of Present Illness History of present illness; patient is a 57-year-old gentleman with past medical history significant for depression, COPD, hypertension who presented to the hospital for elective L5 to pelvis decompression and fusion with bilateral SI joint fusion. Patient has been following up outpatient with orthopedics for his chronic low back pain.Patient states that he has been experiencing an ache-like, burning pain throughout the lumbar spine that has been ongoing for several years with no known injury or trauma. Patient had tried therapy and steroid injections that all measures failed so orthopedic schedule patient for surgery. postoperatively the medicine team was consulted for medical management REVIEW OF SYSTEMS: CONSTITUTIONAL: No fever, no malaise, no fatigue. HEENT: No recent visual problems or hearing problems. Denied any sore throat. CARDIOVASCULAR: No chest pain, orthopnea, PND, no palpitations, no syncope. PULMONARY: No shortness of breath, no cough, no hemoptysis. GASTROINTESTINAL: No diarrhea, no nausea, no vomiting, no abdominal pain. NEUROLOGICAL: No headaches, no weakness, no numbness. HEMATOLOGICAL: Denies any bleeding or petechiae. GENITOURINARY: Denies any burning micturition, frequency, or urgency. MUSCULOSKELETAL/RHEUMATOLOGICAL: Complaining of back pain, complaining of pain in right foot ENDOCRINE: Denies any polyuria or polydipsia. The rest of the 14-point review of systems is negative. PHYSICAL EXAMINATION: GENERAL: The patient is alert and oriented x3, not in any acute distress. Well developed, well nourished. HEENT: Pupils are round and equally reacting to light. EOMI. No scleral icterus. No conjunctival pallor. Normocephalic, atraumatic. No pharyngeal erythema. No thyromegaly. CARDIOVASCULAR: S1 and S2 present. No murmurs, rubs, or gallops. PULMONARY: Chest is clear to auscultation, no wheezing or crackles. ABDOMEN: Soft, nontender, nondistended, normoactive bowel sounds. No palpable organomegaly. MUSCULOSKELETAL: No joint swelling or deformity. EXTREMITIES: No cyanosis, clubbing, or pedal edema. NEUROLOGICAL: Gross neurological examination did not reveal any focal deficits. SKIN: Lumbar area surgical incision seen, drain in place Assessment and plan L5-S1 SPONDYLOSIS SEVERE WITH STENOSIS B/L SIJ OA SEVERE LOW BACK PAIN WITH DEGENERATIVE DISC DISEASE Monitor vital signs status post L5 to S1 decompression and fusion Monitor CBC Monitor CMP Continue pain medicine per surgery Continue DVT prophylaxis per surgery Patient takes Coreg, Lasix, Aldactone, losartan at home for hypertension, at this time we will hold Lasix and losartan. Resume Coreg Resume Cymbalta, Seroquel and Remeron Orthopedic spine following Labs and medication were reviewed.. Continue same treatment. Continue with symptomatic treatment. Resume home medication. Monitor labs and vitals. DVT and GI prophylaxis. Further recommendations as per clinical course of the patient Dictation was produced using [employer] dictation software. please excuse any grammatical, word or spelling errors. Past Medical History Past Medical History: Chest Pain / Angina, Heart Failure, COPD, Eye Disorder, Musculoskeletal Disorder, Neurologic Disorder Additional Past Medical History / Comment(s): COVID 17 January-Jan 2022, Multiple sclerosis USES A CANE/ walker TO AMBULATE, falls. has had in past occasional DOUBLE VISION. CHRONIC BACK NECK PAIN. HAD SPINAL STIMULATOR, THEN REMOVED; Migraine headache. Crohn's disease.lt ear [place] History of Any Multi-Drug Resistant Organisms: None Reported, MRSA Year Discovered:: 2014 MDRO Source:: lower back Past Surgical History: Appendectomy, Back Surgery, Bowel Resection, Hernia Repair Additional Past Surgical History / Comment(s): CERVICAL FUSION. SPINAL STIMUL ATOR implantation, revision and removal. FOREIGN BODY REMOVED RT CHEST WALL. 10/18/2015 wire removed from back. (from stimulator) Past Anesthesia/Blood Transfusion Reactions: Previous Problems w/ Anesthesia Additional Past Anesthesia/Blood Transfusion Reaction / Comm: STATES TAKES A LONG TIME TO WAKE UP Smoking Status: Current every day smoker - Past Family History Father Family Medical History: Cancer, Diabetes Mellitus Additional Family Medical History / Comment(s): CABG-TRIPLE BYPASS, Mother Family Medical History: Cancer, CVA/TIA, Diabetes Mellitus Additional Family Medical History / Comment(s): Stroke Brother(s) Additional Family Medical History / Comment(s): cardiomyopathy Medications and Allergies Home Medications Medication Instructions Recorded Confirmed Type Baclofen [Lioresal] 20 mg PO BID 12/21/15 04/16/23 History HYDROcodone/APAP 7.5-325MG [[place] 1 tab PO BID 04/17/20 04/16/23 History 7.5-325] Pantoprazole Sodium [Protonix] 40 mg PO DAILY 04/17/20 04/16/23 History QUEtiapine [SEROquel] 50 mg PO HS 09/14/21 04/16/23 History SUMAtriptan succinate [Imitrex] 50 mg PO BID PRN 09/14/21 04/16/23 History rOPINIRole HCL [Requip] 1 mg PO HS 09/17/21 04/16/23 History Spironolactone [Aldactone] 25 mg PO DAILY #30 tab 12/26/21 04/16/23 Rx Morphine Sulfate ER [Ms Contin] 30 mg PO Q12H 03/06/22 04/16/23 History carvediloL [Coreg] 6.25 mg PO BID 04/06/22 04/16/23 History DULoxetine HCL [Cymbalta] 30 mg PO HS 08/17/22 04/16/23 History Furosemide [Lasix] 20 mg PO BID 08/17/22 04/16/23 History Losartan [Cozaar] 25 mg PO DAILY 08/17/22 04/16/23 History Mirtazapine [Remeron] 30 mg PO HS 08/17/22 04/16/23 History Tiotropium 18 Mcg/Puff [Spiriva] 2 puff INHALATION DAILY 01/17/23 04/16/23 History Aspirin [[place] Aspirin EC] 81 mg PO DAILY 01/22/23 04/16/23 History Allergies Allergy/AdvReac Type Severity Reaction Status Date / Time lisinopril Allergy Swelling Verified 04/16/23 12:20 of the mouth Physical Exam Vitals: Vital Signs Temp Pulse Resp BP Pulse Ox 04/21/23 08:15 98.4 F 87 18 106/62 95 04/21/23 00:43 97.3 F L 73 18 106/61 97 04/20/23 20:29 83 18 90/55 100 04/20/23 20:14 83 18 94/60 100 04/20/23 19:59 101 H 18 106/68 99 04/20/23 19:55 97.5 F L 74 18 97/54 94 L 04/20/23 19:45 83 18 93/53 100 04/20/23 19:29 83 18 106/66 99 04/20/23 19:16 92 18 92/53 98 04/20/23 19:06 98.1 F 91 18 104/54 99 04/20/23 18:59 82 18 97/61 99 04/20/23 18:34 85 16 129/79 97 04/20/23 18:22 74 20 95/52 98 04/20/23 18:15 86 16 108/51 99 04/20/23 18:00 81 16 121/57 100 04/20/23 17:44 95 22 137/60 93 L 04/20/23 17:29 90 20 136/90 98 04/20/23 17:14 96.8 F L 85 14 165/74 100 04/20/23 13:05 67 16 106/67 93 L 04/20/23 12:22 97.3 F L 76 16 125/70 98 Intake and Output 04/20/23 04/21/23 04/21/23 22:59 06:59 14:59 Intake Total 1050 Output Total 1800 1725 Balance -750 -1725 Intake: IV 1050 Output: Drainage 125 Right Lower Posterior 125 Back Urine 1550 1600 Estimated Blood Loss 250 Other: Voiding Method Indwelling Catheter Weight 81 kg Results CBC & Chem 7: 04/21/23 06:31 04/21/23 06:31 Labs: Abnormal Lab Results - Last 24 Hours (Table) 04/21/23 04/21/23 Range/Units 06:31 06:31 WBC 13.06 H (4.50-10.00) X 10*3/uL RBC 3.49 L (4.40-5.60) X 10*6/uL Hgb 10.8 L (13.0-17.0) d/dL Hct 33.7 L (39.6-50.0) % BUN 5.8 L (9.0-27.0) mg/dL BUN/Creatinine Ratio 8.29 L (12.00-20.00) Ratio Calcium 8.2 L (8.7-10.3) mg/dL
[2023-04-21] MEDS: DEXAMETHASONE SOD PHOSPHATE 4 MG/ML 1 ML VIAL IVP SCH ×2 (15:21→20:38)
[2023-04-21] MEDS: carvediloL 6.25 MG TAB PO SCH (17:43)
[2023-04-21] MEDS: HYDROmorphone 0.5 MG/0.5 ML SYRINGE IVP PRN (17:44)
[2023-04-21] MEDS: MIRTAZAPINE 15 MG TAB PO SCH (20:38)
[2023-04-21] MEDS: DULoxetine HCL 30 MG CAPSULE.DR PO SCH (20:39)
[2023-04-21] MEDS: QUEtiapine 50 MG TAB PO SCH (20:39)
[2023-04-22] MEDS: ACETAMINOPHEN TAB 325 MG TAB PO SCH ×5 (00:32→23:56)
[2023-04-22] MEDS: HYDROcodone/APAP 10-325MG 1 EACH TAB PO PRN ×4 (00:33→23:55)
[2023-04-22] MEDS: DEXAMETHASONE SOD PHOSPHATE 4 MG/ML 1 ML VIAL IVP SCH ×4 (05:18→21:09)
[2023-04-22] MEDS: PANTOPRAZOLE 40 MG TABLET PO SCH (06:23)
[2023-04-22] MEDS: LACTATED RINGERS 1,000 ML IV SCH (06:58)
[2023-04-22] MEDS: carvediloL 6.25 MG TAB PO SCH ×2 (06:58→16:54)
--- NOTE | 2023-04-22 07:46 | P.PN ---
Subjective Progress Note Date: 04/22/23 Principal diagnosis: 1. L5-S1 SPONDYLOSIS SEVERE WITH STENOSIS 2. B/L SIJ OA SEVERE 3. LOW BACK PAIN WITH DEGENERATIVE DISC DISEASE 4. LE PARESTHESIAS Patient was seen at bedside this morning lying semirecumbent position with drain and dressing in place. Weston is still in place. Patient says he did try to get up with physical therapy yesterday, however, patient was only able to sit up at bedside. Patient says he is not able to stand at bedside yesterday. Patient is looking forward to working with physical therapy later today. Patient is hoping to have Weston removed today. Patient says the ankle pain he is having yesterday has gone away. Patient says he is mostly having localized low back pain as well as some right groin pain. Patient denies chest pain, fever, shortness breath, nausea, vomiting, change in vision, loss of bowel/bladder control. Objective - Vital Signs Vital signs: Vital Signs Temp 97.7 F 04/22/23 06:51 Pulse 72 04/22/23 06:51 Resp 17 04/22/23 06:51 BP 98/61 04/22/23 06:51 Pulse Ox 94 L 04/22/23 06:51 FiO2 Intake & Output 04/21/23 04/22/23 04/22/23 18:59 06:59 18:59 Output Total 2089 07 Balance -2089 Output: Drainage 90 Right Lower Posterior 90 Back Urine 1999 07 Other: # Voids 300 - Exam Inspection: Drain is in place over the lumbar spine. 95 mL serosanguineous output and drain overnight. We will maintain drain today to suction. Dressing appears to be clean, dry, intact. Minimal spotting at the superior portion of dressing. [place] appeared to be well aligned and in place. Sensation: Equal, symmetric, bilaterally intact throughout the upper and lower extremities Palpation: There amount of tenderness to palpation throughout the lower lumbar spine and bilateral SI joints. Nontender to palpation throughout rest of exam Range of motion: Patient does have similar range of motion in the bilateral hips due to referred pain from the low back. Patient has full range of motion throughout the bilateral upper extremities and throughout rest of lower extremities on exam. Motor: 4/5 in all major motor groups in bilateral lower extremities. 5/5 in all major motor groups in bilateral upper extremitie Special tests: Negative Tana bilaterally. Negative clonus bilaterally. Negative Homans bilaterally Neurovascular status: Radial pulses intact, 2+ bilaterally. DP pulses palpable bilaterally. Cap refill under 3 seconds in digits of the upper extremities - Labs CBC & Chem 7: 04/21/23 06:31 04/21/23 06:31 Labs: Abnormal Lab Results - Last 24 Hours (Table) 04/21/23 04/21/23 Range/Units 06:31 06:31 WBC 13.06 H (4.50-10.00) X 10*3/uL RBC 3.49 L (4.40-5.60) X 10*6/uL Hgb 10.8 L (13.0-17.0) d/dL Hct 33.7 L (39.6-50.0) % Neutrophils # 9.71 H (1.80-7.70) X 10*3/uL Monocytes # 1.54 H (0.20-1.00) X 10*3/uL BUN 5.8 L (9.0-27.0) mg/dL BUN/Creatinine Ratio 8.29 L (12.00-20.00) Ratio Calcium 8.2 L (8.7-10.3) mg/dL Assessment and Plan Assessment: 1. L5-S1 SPONDYLOSIS SEVERE WITH STENOSIS 2. B/L SIJ OA SEVERE 3. LOW BACK PAIN WITH DEGENERATIVE DISC DISEASE 4. LE PARESTHESIAS - Postop day 2 status post L5 to S1 decompression and fusion Plan: 1. L5-S1 SPONDYLOSIS SEVERE WITH STENOSIS; B/L SIJ OA SEVERE; LOW BACK PAIN WITH DEGENERATIVE DISC DISEASE; LE PARESTHESIAS - surgery performed 04/20/2023 L5 to S1 decompression and fusion. Patient stable at bedside with dressing intact. 95 mL serosanguineous output in drain overnight. We well maintain drain and dressing at this time. drain to 1/2 suction to no suction. Patient to work with PT/OT later this morning. Remove Weston today. Pain medication as needed. Back brace on while up and about. We will continue to follow patient during his stay in hospital. 2. Appreciate medical management 3. Pain management - [place]; gabapentin; Flexeril 4. DVT prophylaxis - mechanical 5. GI prophylaxis - senna; milk of magnesia 6. PT/OT - weightbearing as tolerated with walker and brace on while up and about 7. Encourage incentive spirometer use 8. Discharge planning - pending Time with Patient: Less than 30
[2023-04-22] MEDS: IPRATROPIUM 0.5 MG/2.5 ML NEBU INHALATION SCH ×4 (07:55→20:52)
[2023-04-22] MEDS: GABAPENTIN 300 MG CAP PO SCH ×3 (09:12→21:10)
--- NOTE | 2023-04-22 12:46 | P.PN ---
Subjective Progress Note Date: 04/22/23 patient is a 57-year-old gentleman with past medical history significant for depression, COPD, hypertension who presented to the hospital for elective L5 to pelvis decompression and fusion with bilateral SI joint fusion. Patient has been following up outpatient with orthopedics for his chronic low back pa in.Patient states that he has been experiencing an ache-like, burning pain throughout the lumbar spine that has been ongoing for several years with no known injury or trauma. Patient had tried therapy and steroid injections that all measures failed so orthopedic schedule patient for surgery. postoperatively the medicine team was consulted for medical management 04/22. Patient seen and examined. States back pain is still not under control with current pain medications. Denies any lightheadedness or dizziness didn't display shortness of breath REVIEW OF SYSTEMS: CONSTITUTIONAL: No fever, no malaise,. CARDIOVASCULAR: No chest pain, no palpitations, no syncope. PULMONARY: No shortness of breath, no cough, GASTROINTESTINAL: No diarrhea, no nausea, no vomiting, no abdominal pain. NEUROLOGICAL: No headaches, no weakness, PHYSICAL EXAMINATION: GENERAL: The patient is alert and oriented x3, not in any acute distress. Well developed, well nourished. HEENT: Pupils are round and equally reacting to light. EOMI. No scleral icterus. No conjunctival pallor. Normocephalic, atraumatic. No pharyngeal erythema. No thyromegaly. CARDIOVASCULAR: S1 and S2 present. No murmurs, rubs, or gallops. PULMONARY: Chest is clear to auscultation, no wheezing or crackles. ABDOMEN: Soft, nontender, nondistended, normoactive bowel sounds. No palpable organomegaly. MUSCULOSKELETAL: No joint swelling or deformity. EXTREMITIES: No cyanosis, clubbing, or pedal edema. NEUROLOGICAL: Gross neurological examination did not reveal any focal deficits. SKIN: Lumbar area surgical incision seen, drain in place Assessment and plan L5-S1 SPONDYLOSIS SEVERE WITH STENOSIS B/L SIJ OA SEVERE LOW BACK PAIN WITH DEGENERATIVE DISC DISEASE Monitor vital signs status post L5 to S1 decompression and fusion Monitor CBC Monitor CMP Continue pain medicine per surgery Continue DVT prophylaxis per surgery Continue bowel regimen Patient takes Coreg, Lasix, Aldactone, losartan at home for hypertension, at this time we will hold Lasix and losartan. Continue Coreg for now Continue Cymbalta, Seroquel and Remeron Orthopedic spine following Labs and medication were reviewed.. Continue same treatment. Continue with sym ptomatic treatment. Resume home medication. Monitor labs and vitals. DVT and GI prophylaxis. Further recommendations as per clinical course of the patient Dictation was produced using [employer] dictation software. please excuse any grammatical, word or spelling errors. Objective - Vital Signs Vital signs: Vital Signs Temp 97.7 F 04/22/23 06:51 Pulse 65 04/22/23 11:19 Resp 17 04/22/23 06:51 BP 98/61 04/22/23 06:51 Pulse Ox 94 L 04/22/23 07:55 FiO2 Intake & Output 04/21/23 04/22/23 04/22/23 18:59 06:59 18:59 Output Total 2089 07 Balance -2089 Output: Drainage 90 Right Lower Posterior 90 Back Urine 1999 07 Other: # Voids 300 - Labs CBC & Chem 7: 04/21/23 06:31 04/21/23 06:31
[2023-04-22] MEDS: HYDROmorphone 0.5 MG/0.5 ML SYRINGE IVP PRN (14:05)
[2023-04-22] MEDS: QUEtiapine 50 MG TAB PO SCH (21:09)
[2023-04-22] MEDS: DULoxetine HCL 30 MG CAPSULE.DR PO SCH (21:09)
[2023-04-22] MEDS: HYDROmorphone 1 MG/ML 1 ML SYRINGE IVP PRN (21:10)
[2023-04-22] MEDS: MIRTAZAPINE 15 MG TAB PO SCH (21:10)
[2023-04-23] MEDS: DEXAMETHASONE SOD PHOSPHATE 4 MG/ML 1 ML VIAL IVP SCH ×2 (03:13→09:56)
[2023-04-23] MEDS: HYDROmorphone 1 MG/ML 1 ML SYRINGE IVP PRN (06:43)
[2023-04-23] MEDS: ACETAMINOPHEN TAB 325 MG TAB PO SCH (06:44)
[2023-04-23 08:08] VITALS: BP 114/68; PULSE 75; RESP 17; TEMP 97.6
--- NOTE | 2023-04-23 08:37 | P.DS ---
Providers Date of admission: 04/20/23 11:33 Expected date of discharge: 04/23/23 Attending physician: Jalen Parks DO Consults: 04/20/23 17:18 Consult Physician Routine Consulting Provider: Mack Fox Reason/Comments: s/p L5-S1 decompr fusion Do you want consulting provider notified?: Yes Primary care physician: Mack Fox Hospital Course: Date of admission: 04/20/2023 Date of discharge: 04/23/2023 Admission diagnosis: 1. L5-S1 SPONDYLOSIS SEVERE WITH STENOSIS 2. B/L SIJ OA SEVERE 3. LOW BACK PAIN WITH DEGENERATIVE DISC DISEASE 4. LE PARESTHESIAS Discharge diagnosis: Same Attending physician: Dr. Parks Surgical procedures: L5 to S1 decompression and fusion Brief history: Patient is a 57-year-old male with a history of L5-S1 spondylosis severe with stenosis; bilateral SI joint osteoarthritis; low back pain degenerative disease; lower extremity paresthesias. At this point patient has failed conservative treatment measures and has opted to proceed with a elective L5-S1 decompression fusion. Hospital course: Details of patient's surgery can be found in operative report. Patient tolerated the procedure well and was subsequently transported to orthopedic floor. Patient's orthopeidc and medical care was provided daily. Patient had daily physical therapy to include strengthening range of motion as well as education with walker ambulation. Patient was noted to have a relatively uneventful postoperative course. Patient reported satisfactory pain control with oral pain medications by postoperative day 3. Patient showed satisfactory progress with physical therapy. Patient moved steadily through the program and had no difficulty meeting the goals by postoperative day 3. Given patient's otherwise satisfactory course and having met physical therapy goals, plan is to discharge patient home on postoperative day 3. Discharge condition/disposition: Patient will be discharged home in stable condition. Discharge medications: Instructions are given on resumption of patient's normal daily medications per primary care recommendation, in addition patient will be prescribed Flexeril; Duricef. Spine Discharge and Recovery Instructions Date of Surgery: 04/20/2023 Diagnosis: 1. L5-S1 SPONDYLOSIS SEVERE WITH STENOSIS 2. B/L SIJ OA SEVERE 3. LOW BACK PAIN WITH DEGENERATIVE DISC DISEASE 4. LE PARESTHESIAS Procedure: L5 to S1 decompression and fusion Medications: See medication list All medication refills should be obtained through your primary care doctor or y our clinic spine surgeon. Please discuss prescription refills at your follow up appointment. Do not call the hospital for medication refills. Dressing: Leave your dressing in place for a total of 5 days post operatively. Then you may remove your dressing and leave open to air. Keep the area clean and if not able to keep area clean, then cover with sterile gauze and tape. Showering: You may shower 3 days after your procedure allowing soap and water to run over incision. Do not scrub. Do not soak. Blot dry. Follow up: Please confirm a follow up appointment with your surgeon 3 weeks post operatively. Please make an appointment to follow up with your PCP in 1-2 weeks after surgery for evaluation 3 phase, 3-week plan POST OP WEEKS 1-3 1. Lifting/carrying/pushing/pulling limited to less than 5 pounds. 2. Do not sit for longer than 15 minutes at one time. Get up and walk around. Prolonged sitting is NOT advised. If you lay down, see if you can tolerate laying down on you front (belly side) 3. Walk for periods of 15 minutes = 1 mile but no longer; do it multiple times times each day. 4. Ice your low back after activity. POST OP WEEKS 3-6 1. Lifting limited to less than 20 pounds. 2. Do not sit for longer than 30 minutes at a time. Frequently change positions. Use a sit-to stand workstation or take frequent breaks from sitting if you have returned to work. 3. Walk for 30 minutes each day. If possible, do these three or more times a day POST OP WEEKS 6+ At your 6-week appointment we will give you a physical therapy referral to focus on a core stabilization and strengthening program. You should also work on leg & buttock strengthening, hamstring & quadriceps stretching, and continue a low impact aerobic activity program such as swimming, walking, or riding a stationary bicycle. During the initial 6 weeks after your surgery, you are at the highest risk of re-injuring your spine. You should generally avoid BLTs (bending, lifting and twisting combination motions) and follow the above guidelines to reduce the chance of reinjury. You can anticipate post op appointments in our office at approximately 3 weeks and 6 weeks after your surgery. INCISION CARE: If your incision is not draining you do NOT need to cover it with a dressing. Keep your incision clean, dry and intact. In most cases, we apply skin glue, yvette or sutures to the incision at the time of surgery. This will be like a crust or have the appearance of a scab and will fall off in time on its own. The stitches or yvette need to be removed at 3 weeks post op appointment. You may begin to shower 3 days after surgery (this allows the glue to martínez well). However, please avoid scrubbing the incision site or peeling off any of the skin glue. This will ensure optimal healing of your incision. Also, during this time avoid soaking the incision area in water - this includes swimming pools, hot tubs or baths. No ointments, lotions or oils on the incision until your surgeon allows. Leave yvette, sutures or glue in place. Neurological dysfunction that comes on suddenly can also be a sign of a stroke. Below some common symptoms of a stroke are listed: B - balance difficulty such as sudden onset walking or leaning to one side - NEW E - eye problem such as sudden double vision or trouble seeing on one side - NEW F - Facial weakness or numbness on one side - NEW A - Arm or leg weakness or numbness on one side - NEW S - Slurred speech or difficulty with word finding - NEW T - Time is BRAIN! Call 911 as soon as you recognize these symptoms Diet: Consume a regular diet rich in vegetables and lean protein such as chicken or fish. You should consume in a ratio of approximately 20% fats|40% carbohydrates|40%protein. Vegetables, sweet potatoes, brown rice or quinoa are examples of good carbohydrates. Chips, white bread, cookies and sweets/sugar are examples of bad carbohydrates. Limit your bad carbs, go wild with good carbs. 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 (1) Get Active. Physical activity can help people lose weight, control high blood pressure and cholesterol, feel emotionally better, and sleep better. (2) Control Cholesterol. Avoid a diet high in saturated fat, trans fat, & cholesterol. Limit whole milk & cream, ice cream, butter, egg yolks, processed meats (like sausage and hot dogs), and fatty meats. Choose healthy foods that are low in saturated fat, trans fat and cholesterol which include: Fruits and vegetables, fiber rich grain products (like whole grain pasta and brown rice), lean meat such as chicken, fish, nuts, seeds, and legumes. (3) Eat Better. Eat small portions. Shop at the grocery with a list and do not stray from it. Tips for a healthy diet include: Limit sodium intake to less than 1500mg daily, avoid prepackaged, processed, and fast foods, choose a diet rich in fruits, vegetables, and whole grain, high fiber foods, and limit saturated & cholesterol in your diet. (4) Manage Blood Pressure. If you have high blood pressure, you should have a cuff at home so that you can check your blood pressure regularly. Be sure you have a good cuff. An arm one is generally better than a wrist one. Bring the cuff to a doctor's appointment to validate that the measurements that your cuff are taking are accurate. Take your blood pressure twice daily when you are sitting down and relaxing. Record the numbers in a log and bring this log with you to your doctors' appointments. (5) Lose Weight if your BMI is above 25. A healthy BMI is between 19-25. To calculate Your BMI, you may use a Standard BMI Calculator on the NIH BMI website: <www.nhlbi.nih.gov/guidelines/obesity/BMI/bmicalc.htm>. Weigh oneself daily. If you are overweight, set a goal to lose weight. A pound a week loss if needed is a good target. (6) Reduce Blood Sugar. Limit foods and liquids with "added sugars." (Added sugars include sucrose, fructose, glucose, maltose, dextrose, high fructose corn syrup, corn syrup, concentrated fruit juice and honey). (7) Stop Smoking. If you smoke, quitting smoking is one of the best things that you can do for your health. Smoking increases your risk of heart attack, stroke, and peripheral vascular disease, which is a build-up of plaque in your arteries. Please discard all the cigarettes and lighters in your house. Have a plan for what you will do when you have the urge to smoke. Direct and second- hand smoke shortens your life as well as the lives of your family, friends and others around you. For your health and the health of those around you, please consider quitting! Proper Bending Body Mechanics: Maintain a wide stance with one foot slightly in front of the other. Keep your back straight. Bend utilizing the strength in your hips and knees. Do not bend at the waist. Maintain the lifted object at your waist-level close to your body. Avoid lifting weight that causes immediately pain or pain anywhere in the body afterwards. Smoking/Nicotine If there was ever one thing that you could do to increase your overall health, decrease your risk of cardiovascular problems by about 39% the second you make the choice, it is to STOP SMOKING. Your body's most instant gratification is the second you stop smoking. We have all heard the studies, read the articles but it is true, smoking is extremely bad for your overall health, and moreover it is detrimental to your bone health. Nicotine, IN ANY FORM, kills bone cells, prevents your body from healing fractures, and significantly prolongs healing after surgery. In spine surgery specifically, it increases your risk of not healing your bones to create a fusion and increases your risk of having a revision surgery due to this up to 60%. I know it is hard. I know it feels impossible. But there are ways. Take control of your life. We are here to help you through it. And when you are ready, ask us and we can direct you to help if you desire. Use the START Plan to Quit Smoking (please visit the [employer]org website listed below for more information): S = Set a quit date. Choose a date within the next 2 weeks, so you have enough time to prepare without losing your motivation to quit. If you mainly smoke at work, quit on the weekend, so you have a few days to adjust to the change. T = Tell family, friends, and co-workers that you plan to quit. Let your friends and family in on your plan to quit smoking and tell them you need their support and encouragement to stop. Look for a quit ángela who wants to stop smoking as well. You can help each other get through the rough times. A = Anticipate and plan for the challenges you'll face while quitting. Most people who begin smoking again do so within the first 3 months. You can help yourself make it through by preparing ahead for common challenges, such as nicotine withdrawal and cigarette cravings. R = Remove cigarettes and other tobacco products from your home, car, and work. Throw away all your cigarettes (no emergency pack!), lighters, ashtrays, and matches. Wash your clothes and freshen up anything that smells like smoke. Shampoo your car, clean your drapes and carpet, and steam your furniture. T = Talk to your doctor about getting help to quit. Your doctor can prescribe medication to help with withdrawal and suggest other alternatives. If you can't see a doctor, you can get many products over the counter at your local pharmacy or grocery store, including the nicotine patch, nicotine lozenges, and nicotine gum. Resources for Quitting Smoking: <https://www .[place].gov/documents/[facility]/Quit_Tobacco_Resources_for_patients_313480_7.pdf> Supplementation: Take recommended dosages of Vitamin D and Calcium to help fortify your bones and help them to heal. See your health maintenance packet for dosages and recommended levels. DVT/VTE prophylaxis: You will be given compression stockings from the hospital. Wear these daily for the first two weeks after surgery. You may take them off at night. You may be prescribed a medication to help thin your blood. Take this as directed. If you are not prescribed this medication, early and frequent ambulation has been shown to be the best prophylaxis to deep vein thrombosis and sequelae related to this event. Assessment: 1. L5-S1 SPONDYLOSIS SEVERE WITH STENOSIS 2. B/L SIJ OA SEVERE 3. LOW BACK PAIN WITH DEGENERATIVE DISC DISEASE 4. LE PARESTHESIAS Procedures: L5 to S1 decompression and fusion Patient Condition at Discharge: Good Plan - Discharge Summary Discharge Rx Participant: Yes New Discharge Prescriptions: No Action Baclofen [Lioresal] 20 mg PO BID HYDROcodone/APAP 7.5-325MG [[place] 7.5-325] 1 tab PO BID Pantoprazole Sodium [Protonix] 40 mg PO DAILY QUEtiapine [SEROquel] 50 mg PO HS rOPINIRole HCL [Requip] 1 mg PO HS Losartan [Cozaar] 25 mg PO DAILY Furosemide [Lasix] 20 mg PO BID SUMAtriptan succinate [Imitrex] 50 mg PO BID PRN PRN Reason: Migraine Headache Spironolactone [Aldactone] 25 mg PO DAILY #30 tab Morphine Sulfate ER [Ms Contin] 30 mg PO Q12H carvediloL [Coreg] 6.25 mg PO BID DULoxetine HCL [Cymbalta] 30 mg PO HS Mirtazapine [Remeron] 30 mg PO HS Tiotropium 18 Mcg/Puff [Spiriva] 2 puff INHALATION DAILY Aspirin [[place] Aspirin EC] 81 mg PO DAILY Discharge Medication List Baclofen [Lioresal] 20 mg PO BID 12/21/15 [History] HYDROcodone/APAP 7.5-325MG [[place] 7.5-325] 1 tab PO BID 04/17/20 [History] Pantoprazole Sodium [Protonix] 40 mg PO DAILY 04/17/20 [History] QUEtiapine [SEROquel] 50 mg PO HS 09/14/21 [History] SUMAtriptan succinate [Imitrex] 50 mg PO BID PRN 09/14/21 [History] rOPINIRole HCL [Requip] 1 mg PO HS 09/17/21 [History] Spironolactone [Aldactone] 25 mg PO DAILY #30 tab 12/26/21 [Rx] Morphine Sulfate ER [Ms Contin] 30 mg PO Q12H 03/06/22 [History] carvediloL [Coreg] 6.25 mg PO BID 04/06/22 [History] DULoxetine HCL [Cymbalta] 30 mg PO HS 08/17/22 [History] Furosemide [Lasix] 20 mg PO BID 08/17/22 [History] Losartan [Cozaar] 25 mg PO DAILY 08/17/22 [History] Mirtazapine [Remeron] 30 mg PO HS 08/17/22 [History] Tiotropium 18 Mcg/Puff [Spiriva] 2 puff INHALATION DAILY 01/17/23 [History] Aspirin [[place] Aspirin EC] 81 mg PO DAILY 01/22/23 [History] Follow up Appointment(s)/Referral(s): Jalen Parks DO [Doctor of Osteopathic Medicine] - 2 Weeks Activity/Diet/Wound Care/Special Instructions: Spine Discharge and Recovery Instructions Date of Surgery: 04/20/2023 Diagnosis: 1. L5-S1 SPONDYLOSIS SEVERE WITH STENOSIS 2. B/L SIJ OA SEVERE 3. LOW BACK PAIN WITH DEGENERATIVE DISC DISEASE 4. LE PARESTHESIAS Procedure: L5 to S1 decompression and fusion Medications: See medication list All medication refills should be obtained through your primary care doctor or your clinic spine surgeon. Please discuss prescription refills at your follow up appointment. Do not call the hospital for medication refills. Dressing: Leave your dressing in place for a total of 5 days post operatively. Then you may remove your dressing and leave open to air. Keep the area clean and if not able to keep area clean, then cover with sterile gauze and tape. Showering: You may shower 3 days after your procedure allowing soap and water to run over incision. Do not scrub. Do not soak. Blot dry. Follow up: Please confirm a follow up appointment with your surgeon 3 weeks post operatively. Please make an appointment to follow up with your PCP in 1-2 weeks after surgery for evaluation 3 phase, 3-week plan POST OP WEEKS 1-3 1. Lifting/carrying/pushing/pulling limited to less than 5 pounds. 2. Do not sit for longer than 15 minutes at one time. Get up and walk around. Prolonged sitting is NOT advised. If you lay down, see if you can tolerate laying down on you front (belly side) 3. Walk for periods of 15 minutes = 1 mile but no longer; do it multiple times times each day. 4. Ice your low back after activity. POST OP WEEKS 3-6 1. Lifting limited to less than 20 pounds. 2. Do not sit for longer than 30 minutes at a time. Frequently change positions. Use a sit-to stand workstation or take frequent breaks from sitting if you have returned to work. 3. Walk for 30 minutes each day. If possible, do these three or more times a day POST OP WEEKS 6+ At your 6-week appointment we will give you a physical therapy referral to focus on a core stabilization and strengthening program. You should also work on leg & buttock strengthening, hamstring & quadriceps stretching, and continue a low impact aerobic activity program such as swimming, walking, or riding a stationary bicycle. During the initial 6 weeks after your surgery, you are at the highest risk of re-injuring your spine. You should generally avoid BLTs (bending, lifting and twisting combination motions) and follow the above guidelines to reduce the chance of reinjury. You can anticipate post op appointments in our office at approximately 3 weeks and 6 weeks after your surgery. INCISION CARE: If your incision is not draining you do NOT need to cover it with a dressing. Keep your incision clean, dry and intact. In most cases, we apply skin glue, yvette or sutures to the incision at the time of surgery. This will be like a crust or have the appearance of a scab and will fall off in time on its own. The stitches or yvette need to be removed at 3 weeks post op appointment. You may begin to shower 3 days after surgery (this allows the glue to martínez well). However, please avoid scrubbing the incision site or peeling off any of the skin glue. This will ensure optimal healing of your incision. Also, during this time avoid soaking the incision area in water - this includes swimming pools, hot tubs or baths. No ointments, lotions or oils on the incision until your surgeon allows. Leave yvette, sutures or glue in place. Neurological dysfunction that comes on suddenly can also be a sign of a stroke. Below some common symptoms of a stroke are listed: B - balance difficulty such as sudden onset walking or leaning to one side - NEW E - eye problem such as sudden double vision or trouble seeing on one side - NEW F - Facial weakness or numbness on one side - NEW A - Arm or leg weakness or numbness on one side - NEW S - Slurred speech or difficulty with word finding - NEW T - Time is BRAIN! Call 911 as soon as you recognize these symptoms Diet: Consume a regular diet rich in vegetables and lean protein such as chicken or fish. You should consume in a ratio of approximately 20% fats|40% carbohydrates|40%protein. Vegetables, sweet potatoes, brown rice or quinoa are examples of good carbohydrates. Chips, white bread, cookies and sweets/sugar are examples of bad carbohydrates. Limit your bad carbs, go wild with good carbs. 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 (1) Get Active. Physical activity can help people lose weight, control high blood pressure and cholesterol, feel emotionally better, and sleep better. (2) Control Cholesterol. Avoid a diet high in saturated fat, trans fat, & cholesterol. Limit whole milk & cream, ice cream, butter, egg yolks, processed meats (like sausage and hot dogs), and fatty meats. Choose healthy foods that are low in saturated fat, trans fat and cholesterol which include: Fruits and vegetables, fiber rich grain products (like whole grain pasta and brown rice), lean meat such as chicken, fish, nuts, seeds, and legumes. (3) Eat Better. Eat small portions. Shop at the grocery with a list and do not stray from it. Tips for a healthy diet include: Limit sodium intake to less than 1500mg daily, avoid prepackaged, processed, and fast foods, choose a diet rich in fruits, vegetables, and whole grain, high fiber foods, and limit saturated & cholesterol in your diet. (4) Manage Blood Pressure. If you have high blood pressure, you should have a cuff at home so that you can check your blood pressure regularly. Be sure you have a good cuff. An arm one is generally better than a wrist one. Bring the cuff to a doctor's appointment to validate that the measurements that your cuff are taking are accurate. Take your blood pressure twice daily when you are sitting down and relaxing. Record the numbers in a log and bring this log with you to your doctors' appointments. (5) Lose Weight if your BMI is above 25. A healthy BMI is between 19-25. To calculate Your BMI, you may use a Standard BMI Calculator on the NIH BMI website: <www.nhlbi.nih.gov/guidelines/obesity/BMI/bmicalc.htm>. Weigh oneself daily. If you are overweight, set a goal to lose weight. A pound a week loss if needed is a good target. (6) Reduce Blood Sugar. Limit foods and liquids with "added sugars." (Added sugars include sucrose, fructose, glucose, maltose, dextrose, high fructose corn syrup, corn syrup, concentrated fruit juice and honey). (7) Stop Smoking. If you smoke, quitting smoking is one of the best things that you can do for your health. Smoking increases your risk of heart attack, stroke, and peripheral vascular disease, which is a build-up of plaque in your arteries. Please discard all the cigarettes and lighters in your house. Have a plan for what you will do when you have the urge to smoke. Direct and second- hand smoke shortens your life as well as the lives of your family, friends and others around you. For your health and the health of those around you, please consider quitting! Proper Bending Body Mechanics: Maintain a wide stance with one foot slightly in front of the other. Keep your back straight. Bend utilizing the strength in your hips and knees. Do not bend at the waist. Maintain the lifted object at your waist-level close to your body. Avoid lifting weight that causes immediately pain or pain anywhere in the body afterwards. Smoking/Nicotine If there was ever one thing that you could do to increase your overall health, decrease your risk of cardiovascular problems by about 39% the second you make the choice, it is to STOP SMOKING. Your body's most instant gratification is the second you stop smoking. We have all heard the studies, read the articles but it is true, smoking is extremely bad for your overall health, and moreover it is detrimental to your bone health. Nicotine, IN ANY FORM, kills bone cells, prevents your body from healing fractures, and significantly prolongs healing after surgery. In spine surgery specifically, it increases your risk of not healing your bones to create a fusion and increases your risk of having a revision surgery due to this up to 60%. I know it is hard. I know it feels impossible. But there are ways. Take control of your life. We are here to help you through it. And when you are ready, ask us and we can direct you to help if you desire. Use the START Plan to Quit Smoking (please visit the [employer].org website listed below for more information): S = Set a quit date. Choose a date within the next 2 weeks, so you have enough time to prepare without losing your motivation to quit. If you mainly smoke at work, quit on the weekend, so you have a few days to adjust to the change. T = Tell family, friends, and co-workers that you plan to quit. Let your friends and family in on your plan to quit smoking and tell them you need their support and encouragement to stop. Look for a quit ángela who wants to stop smoking as well. You can help each other get through the rough times. A = Anticipate and plan for the challenges you'll face while quitting. Most people who begin smoking again do so within the first 3 months. You can help yourself make it through by preparing ahead for common challenges, such as nicotine withdrawal and cigarette cravings. R = Remove cigarettes and other tobacco products from your home, car, and work. Throw away all your cigarettes (no emergency pack!), lighters, ashtrays, and matches. Wash your clothes and freshen up anything that smells like smoke. Shampoo your car, clean your drapes and carpet, and steam your furniture. T = Talk to your doctor about getting help to quit. Your doctor can prescribe medication to help with withdrawal and suggest other alternatives. If you can't see a doctor, you can get many products over the counter at your local pharmacy or grocery store, including the nicotine patch, nicotine lozenges, and nicotine gum. Resources for Quitting Smoking: <https://www.[place].gov/documents/[facility]/Quit_Tobacco_Resources_for_patients_313 480_7.pdf> Supplementation: Take recommended dosages of Vitamin D and Calcium to help fortify your bones and help them to heal. See your health maintenance packet for dosages and recommended levels. DVT/VTE prophylaxis: You will be given compression stockings from the hospital. Wear these daily for the first two weeks after surgery. You may take them off at night. You may be prescribed a medication to help thin your blood. Take this as directed. If you are not prescribed this medication, early and frequent ambulation has been shown to be the best prophylaxis to deep vein thrombosis and sequelae related to this event. Discharge Disposition: HOME SELF-CARE
--- NOTE | 2023-04-23 08:40 | P.PN ---
Subjective Progress Note Date: 04/23/23 Principal diagnosis: 1. L5-S1 SPONDYLOSIS SEVERE WITH STENOSIS 2. B/L SIJ OA SEVERE 3. LOW BACK PAIN WITH DEGENERATIVE DISC DISEASE 4. LE PARESTHESIAS Patient was seen at bedside this morning lying semirecumbent position with drain and dressing in place. Patient says he got up yesterday and walked around the room and out and down the hallway. Patient says he is looking forward to going home later today. Patient says he did urinate several times yesterday after Weston was removed. Patient says he is still having pain in the right hip and right groin. Patient denies chest pain, fever, shortness breath, nausea, vomiting, change in vision, loss of bowel/bladder control. Objective - Vital Signs Vital signs: Vital Signs Temp 97.6 F 04/23/23 07:08 Pulse 75 04/23/23 07:08 Resp 17 04/23/23 07:08 BP 114/68 04/23/23 07:08 Pulse Ox 90 L 04/23/23 07:08 FiO2 Intake & Output 04/22/23 04/23/23 04/23/23 18:59 06:59 18:59 Output Total 660 650 450 Balance -660 -650 -450 Output: Drainage 10 Right Lower Posterior 10 Back Urine 650 650 450 Other: # Voids 0 # Bowel Movements 0 - Exam Inspection: Drain removed at bedside this morning. Dressing changed. Carol appeared to be well aligned and in place. Sensation: Equal, symmetric, bilaterally intact throughout the upper and lower extremities Palpation: There amount of tenderness to palpation throughout the lower lumbar spine and bilateral SI joints. Nontender to palpation throughout rest of exam Range of motion: Patient does have similar range of motion in the bilateral hips due to referred pain from the low back. Patient has full range of motion throughout the bilateral upper extremities and throughout rest of lower extremities on exam. Motor: 4/5 in all major motor groups in bilateral lower extremities. 5/5 in all major motor groups in bilateral upper extremitie Special tests: Negative Tana bilaterally. Negative clonus bilaterally. Negative Homans bilaterally Neurovascular status: Radial pulses intact, 2+ bilaterally. DP pulses palpable bilaterally. Cap refill under 3 seconds in digits of the upper extremities - Labs CBC & Chem 7: 04/21/23 06:31 04/21/23 06:31 Assessment and Plan Assessment: 1. L5-S1 SPONDYLOSIS SEVERE WITH STENOSIS 2. B/L SIJ OA SEVERE 3. LOW BACK PAIN WITH DEGENERATIVE DISC DISEASE 4. LE PARESTHESIAS - Postop day 3 status post L5 to S1 decompression and fusion Plan: 1. L5-S1 SPONDYLOSIS SEVERE WITH STENOSIS; B/L SIJ OA SEVERE; LOW BACK PAIN WITH DEGENERATIVE DISC DISEASE; LE PARESTHESIAS - surgery performed 04/20/2023 L5 to S1 decompression and fusion. Patient stable at bedside with dressing intact. Drain removed at bedside. Dressing changed. Patient to work with PT/OT later this morning. Remove Weston today. Pain medication as needed. Back brace on while up and about. Discharge home today. 2. Appreciate medical management 3. Pain management - [place]; gabapentin; Flexeril 4. DVT prophylaxis - mechanical 5. GI prophylaxis - senna; milk of magnesia 6. PT/OT - weightbearing as tolerated with walker and brace on while up and about 7. Encourage incentive spirometer use 8. Discharge planning - discharge home today Time with Patient: Less than 30
[2023-04-23] MEDS: IPRATROPIUM 0.5 MG/2.5 ML NEBU INHALATION SCH (09:56)
[2023-04-23] MEDS: carvediloL 6.25 MG TAB PO SCH (09:56)
[2023-04-23] MEDS: HYDROcodone/APAP 10-325MG 1 EACH TAB PO PRN (09:56)
[2023-04-23] MEDS: GABAPENTIN 300 MG CAP PO SCH (09:56)
[2023-04-23] MEDS: PANTOPRAZOLE 40 MG TABLET PO SCH (09:56)
[2023-04-23] MEDS ORDERED: FUROSEMIDE 20 MG TAB PO SCH (10:00)
[2023-04-23] MEDS ORDERED: polyethylene glycoL 3350 17 GM POWD.PACK PO STA (10:29)
--- NOTE | 2023-04-23 10:29 | P.PN ---
Subjective Progress Note Date: 04/23/23 This is a 57-year-old gentleman status post L5 to S1 decompression and fusion secondary to spondylolysis severe with stenosis L5-S1. Tolerated procedure well. Denies numbness or tingling of extremities .Ambulating, tolerated exertion well. Complains of mild controlled right hip pain. Positive diet inta ke with no nausea vomiting or diarrhea. No bowel movement, positive flatus. Denies chest pain, palpitations, shortness of breath or congestion. Patient is expected to be discharged home today. Afebrile. Maintaining O2 sats of 96% on room air. Objective - Vital Signs Vital signs: Vital Signs Temp 97.6 F 04/23/23 07:08 Pulse 75 04/23/23 07:08 Resp 17 04/23/23 07:08 BP 114/68 04/23/23 07:08 Pulse Ox 96 04/23/23 09:56 FiO2 Intake & Output 04/22/23 04/23/23 04/23/23 18:59 06:59 18:59 Output Total 660 650 450 Balance -660 -650 -450 Output: Drainage 10 Right Lower Posterior 10 Back Urine 650 650 450 Other: # Voids 0 # Bowel Movements 0 - Exam PHYSICAL EXAM: VITAL SIGNS: [As above] GENERAL: Sitting up in bed, no acute distress HEENT: Normocephalic, Conjunctivae normal. eyes normal. NECK: Supple, No JVD. CARDIOVASCULAR: S1, S2 regular. Systolic murmur RESPIRATION: Unlabored, bilateral air entry ,Breath sounds diminished in the bases. ABDOMEN: Soft, nondistended, nontender . No guarding. no masses palpable.+BS. LEGS: No edema. no swelling PSYCHIATRY: Alert and oriented X3, mood and affect normal. NERVOUS SYSTEM: Cranial N 2-12 grossly normal. Moves all 4 limbs. No focal deficits.Strength and sensation grossly intact.. Skin: Warm and dry ,no rash - Labs CBC & Chem 7: 04/21/23 06:31 04/21/23 06:31 Assessment and Plan Assessment: Assessment: Status post L5 to S1 decompression and fusion secondary to L5-S1 spondylosis severe with stenosis, B/L SIJ OA severe, low back pain with degenerative disc disease Postoperative Atelectasis secondary to the above, expected outcome History of Crohn's disease, last exacerbation approximately 10 years ago COPD, stable History of Covid 19 infection in March 2022 History of migraines Chronic pain syndrome Moderate mitral regurgitation. History of nonischemic cardiomyopathy, ejection fraction 40-45% Normal coronary arteries per cardiac catheterization 01/13/2022 Plan: Continue on current medication regime ,monitoring and symptomatic tr eatment. Discharge planning in progress for today as per primary. Maintain aggressive pulmonary toileting. Continue with incentive spirometer as advised at wa. Pain management, DVT prophylaxis as per primary. Follow-up with PCP in 1 week. The impression and plan of care has been dictated as directed. : I performed a history and examination of this patient, discussed the same with the dictator. I agree with the dictator's note ,documented as a scribe. Any additional findings or plans will be noted.
--- NOTE | 2023-04-24 14:57 | CDI ---
Documentation Clarification Form Date: 04/24/2023 02:43:40 PM From: Sherin Davila Phone: Admit Date: 04/20/2023 11:33:00 AM Patient Name: Oz Monroe Visit Number: [id number] Discharge Date: 04/23/2023 12:10:00 PM ATTENTION: The Clinical Documentation Specialists (CDI) and [facility] Coding Staff appreciate your assistance in clarifying documentation. Please respond to the clarification below the line at the bottom and electronically sign. The CDI & [facility] Coding staff will review the response and follow-up if needed. Please note: Queries are made part of the Legal Health Record. If you have any questions, please contact the author of this message via ITS. Dr. Cisco Pate Your patient has the documented diagnosis of unspecified CHF per H&P Past Medical Hx. Additional information regarding the type of CHF is requested. History/Risk Factors: 57yo M, L/S spondylosis with radiculopathy, NICM, Crohns, L/S DDD, HTN, MS, MR, smoker w COPD, chronic pain syndrome, FHx CAD Clinical Indicators: VS/Pulse OX: 97 Moderatemitral regurgitation; nonischemic cardiomyopathy, ejection fraction 40- 45% Normal coronary arteries percardiac [id number]/15/2022 Treatment: monitor In your professional opinion, can you please clarify the type of CHF if known? [ x ] Chronic Systolic Heart Failure (reduced EF) [ ] Chronic Diastolic Heart Failure (preserved EF) [ ] Chronic Systolic & Diastolic Heart Failure [ ] Other, please specify [ ] Unable to determine (Template Last Revised: August 2020) MTDD
== END 2023-04-23 12:10 | disposition home or self-care (01) | DRG 454 ==
LOC: 2ORMAIN 11:33 → EDSTATUS 12:30 → 4SSUR 17:13
PROVIDERS: ADMIT Orthopaedic Surgery; ATTEND Orthopaedic Surgery
PROC: 0SG30AJ Fusion of Lumbosacral Joint with Interbody Fusion Device, Posterior Approach, Anterior Column, Open Approach (ICD-10-PCS; 2023-04-20)
PROC: 0SG704Z Fusion of Right Sacroiliac Joint with Internal Fixation Device, Open Approach (ICD-10-PCS; 2023-04-20)
PROC: 0SG3071 Fusion of Lumbosacral Joint with Autologous Tissue Substitute, Posterior Approach, Posterior Column, Open Approach (ICD-10-PCS; 2023-04-20)
PROC: 01NB0ZZ Release Lumbar Nerve, Open Approach (ICD-10-PCS; 2023-04-20)
PROC: 01NR0ZZ Release Sacral Nerve, Open Approach (ICD-10-PCS; 2023-04-20)
PROC: 8E0WXBZ Computer Assisted Procedure of Trunk Region (ICD-10-PCS; 2023-04-20)
PROC: 0SG804Z Fusion of Left Sacroiliac Joint with Internal Fixation Device, Open Approach (ICD-10-PCS; principal; 2023-04-20 13:00)
DX: M47.27 Other spondylosis with radiculopathy, lumbosacral region (principal); I42.8 Other cardiomyopathies; K50.90 Crohn's disease, unspecified, without complications; I50.22 Chronic systolic (congestive) heart failure; M48.07 Spinal stenosis, lumbosacral region; M46.1 Sacroiliitis, not elsewhere classified; M51.17 Intervertebral disc disorders with radiculopathy, lumbosacral region; Z96.641 Presence of right artificial hip joint; S32.591S Other specified fracture of right pubis, sequela; J44.9 Chronic obstructive pulmonary disease, unspecified; F32.A Depression, unspecified; I11.0 Hypertensive heart disease with heart failure; G35 Multiple sclerosis; I34.0 Nonrheumatic mitral (valve) insufficiency; M54.2 Cervicalgia; H91.92 Unspecified hearing loss, left ear; N50.82 Scrotal pain; G47.9 Sleep disorder, unspecified; F17.210 Nicotine dependence, cigarettes, uncomplicated; G89.4 Chronic pain syndrome; G43.909 Migraine, unspecified, not intractable, without status migrainosus; Z98.61 Coronary angioplasty status; Z28.310 Unvaccinated for COVID-19; Z86.16 Personal history of COVID-19; Z86.14 Personal history of Methicillin resistant Staphylococcus aureus infection; Z79.891 Long term (current) use of opiate analgesic; Z79.899 Other long term (current) drug therapy; Z79.82 Long term (current) use of aspirin; Z88.8 Allergy status to other drugs, medicaments and biological substances; Z82.49 Family history of ischemic heart disease and other diseases of the circulatory system
CPT/HCPCS: 72100; 72131; 80048; 85025; 94640; 94760

== ENCOUNTER 2023-04-27 09:40 | Emergency (ER) | payer MEDICARE ==
[2023-04-27 09:48] VITALS: TEMP 98.5
--- NOTE | 2023-04-27 10:23 | ED ---
General Adult HPI - General Chief complaint: Recheck/Abnormal Lab/Rx Stated complaint: leg pain infection problems urinating Time Seen by Provider: 04/27/23 09:57 Source: patient, RN notes reviewed Mode of arrival: ambulatory Limitations: no limitations - History of Present Illness Initial comments: 57-year-old male presents the emergency department with a chief complaint leg pain. Patient reports that he had spinal surgery on Sunday04/20/[address] Mratin's and on. He reports initially he felt okay however the pain is progressively worse since stopping the steroids. He is complaining of right leg pain. He denies any numbness, tingling, weakness in the extremity. She denies any known fevers or chills. He denies any loss of bowel or bladder function or saddle paresthesia. - Related Data Home Medications Medication Instructions Recorded Confirmed HYDROcodone/APAP 7.5-325MG [[place] 1 tab PO BID 04/17/20 04/27/23 7.5-325] Pantoprazole Sodium [Protonix] 40 mg PO DAILY 04/17/20 04/27/23 QUEtiapine [SEROquel] 50 mg PO HS 09/14/21 04/27/23 rOPINIRole HCL [Requip] 1 mg PO HS 09/17/21 04/27/23 Morphine Sulfate ER [Ms Contin] 30 mg PO Q12H 03/06/22 04/27/23 carvediloL [Coreg] 6.25 mg PO BID 04/06/22 04/27/23 DULoxetine HCL [Cymbalta] 30 mg PO HS 08/17/22 04/27/23 Furosemide [Lasix] 20 mg PO BID 08/17/22 04/27/23 Losartan [Cozaar] 25 mg PO DAILY 08/17/22 04/27/23 Mirtazapine [Remeron] 30 mg PO HS 08/17/22 04/27/23 Aspirin [Gregory Aspirin EC] 81 mg PO DAILY 01/22/23 04/27/23 SUMAtriptan succinate [Imitrex] 100 mg PO BID PRN 04/27/23 04/27/23 Sennosides-Docusate Sodium 2 tab PO DAILY PRN 04/27/23 04/27/23 [Senokot-S] Tiotropium 2.5 Mcg/Puff [Spiriva 2 puff INHALATION RT-DAILY 04/27/23 04/27/23 Respimat 2.5 Mcg] Previous Rx's Medication Instructions Recorded Spironolactone [Aldactone] 25 mg PO DAILY #30 tab 12/26/21 Acetaminophen Tab [Tylenol] 650 mg PO Q6HR tab 04/23/23 Cyclobenzaprine [Flexeril] 5 mg PO TID #21 tablet 04/23/23 Magnesium Hydroxide [Milk of 2,400 mg PO DAILY PRN ml 04/23/23 Magnesia] cefaDROXiL [Duricef] 500 mg PO Q12HR 5 Days #10 cap 04/23/23 methylPREDNISolone Dose Pack 4 mg PO DIRECTED #21 tab 04/27/23 [Medrol Dose Pack] Allergies Allergy/AdvReac Type Severity Reaction Status Date / Time lisinopril Allergy Swelling Verified 04/27/23 14:14 of the mouth Review of Systems ROS Statement: Those systems with pertinent positive or pertinent negative responses have been documented in the HPI. ROS Other: All systems not noted in ROS Statement are negative. Past Medical History Past Medical History: Chest Pain / Angina, Heart Failure, COPD, Eye Disorder, Musculoskeletal Disorder, Neurologic Disorder Additional Past Medical History / Comment(s): COVID 17 January-Jan 2022, Multiple sclerosis USES A CANE/ walker TO AMBULATE, falls. has had in past occasional DOUBLE VISION. CHRONIC BACK NECK PAIN. HAD SPINAL STIMULATOR, THEN REMOVED; Migraine headache. Crohn's disease.lt ear [place] History of Any Multi-Drug Resistant Organisms: None Reported, MRSA Date of last positivie culture/infection: 2014 MDRO Source:: lower back Past Surgical History: Appendectomy, Back Surgery, Bowel Resection, Hernia Repair Additional Past Surgical History / Comment(s): CERVICAL FUSION. SPINAL STIMULATOR implantation, revision and removal. FOREIGN BODY REMOVED RT CHEST W[employer] [facility]. 10/18/2015 wire removed from back. (from stimulator) Past Anesthesia/Blood Transfusion Reactions: Previous Problems w/ Anesthesia Additional Past Anesthesia/Blood Transfusion Reaction / Comment(s): STATES TAKES A LONG TIME TO WAKE UP Past Psychological History: Anxiety, Depression Smoking Status: Current every day smoker Past Alcohol Use History: None Reported Past Drug Use History: Marijuana - Past Family History Father Family Medical History: Cancer, Diabetes Mellitus Additional Family Medical History / Comment(s): CABG-TRIPLE BYPASS, Mother Family Medical History: Cancer, CVA/TIA, Diabetes Mellitus Additional Family Medical History / Comment(s): Stroke Brother(s) Additional Family Medical History / Comment(s): cardiomyopathy General Exam - General Exam Comments Initial Comments: Visual Physical Exam Vital signs reviewed General: Well-appearing, nontoxic, no acute distress. Head: Normocephalic, atraumatic Eyes: PERRLA, EOMI ENT: Airway patent Chest: Nonlabored breathing Skin: No visual rash, normal skin tone Neuro: Alert and oriented 3 Musculoskeletal: No gross abnormalities I performed the quick note portion of this exam, verbal signature Karuna Leung PA-C General: Alert, in no acute distress Head: atraumatic normocephalic. Eyes PERRL, EOMI intact, mucous membranes moist Respiratory: Lungs clear to auscultation bilaterally Cardiovascular: Heart rate regular rate and Abdominal: Soft without guarding or rebound Back: Surgical site appears intact. No surrounding erythema or purulent discharge. Nontender. Extremities: Normal inspection with full range of motion and normal capillary refill Neuroogic: alert and oriented 3, CN II-XII intact, able to ambulate with steady gait Skin: warm dry and intact with normal color Limitations: no limitations Course Vital Signs 04/27/23 04/27/23 04/27/23 09:42 12:11 14:30 Temperature 98.5 F Pulse Rate 79 82 80 Respiratory 20 20 18 Rate Blood Pressure 121/50 120/54 122/74 O2 Sat by Pulse 99 98 99 Oximetry - Reevaluation(s) Reevaluation #1: 04/27/23 13:58 CAse discussed with Juan ornelas who states that he will round on the patient in the emergency department. Reevaluation #2: 04/27/23 14:16 Case discussed with renata Ornelas who recommends giving the patient a Medrol Dosepak and is stable enough for discharge. Medical Decision Making - Medical Decision Making Was pt. sent in by a medical professional or institution (WINDY Perez, [employer], urgent care, hospital, or long-term...) When possible be specific @ -[No] Did you speak to anyone other than the patient for history (EMS, parent, family, police, friend...)? What history was obtained from this source @ -[No] Did you review nursing and triage notes (agree or disagree)? Why? @ -[I reviewed and agree with nursing and triage notes] Were old charts reviewed (outside hosp., previous admission, EMS record, old EKG, old radiological studies, urgent care reports/EKG's, long-term records)? Report findings @ -[No old charts were reviewed] Differential Diagnosis (chest pain, altered mental status, abdominal pain women, abdominal pain men, vaginal bleeding, weakness, fever, dyspnea, syncope, heada antonino, dizziness, GI bleed, back pain, seizure, CVA, palpatations, mental health, musculoskeletal)? @ -[not applicable] EKG interpreted by me (3pts min.). @ -[As above] X-rays interpreted by me (1pt min.). @ Yes, lumbar x-ray and hip x-ray did not reveal any acute abnormalities. Hardware remains intact. CT interpreted by me (1pt min.). @ -[None done] U/S interpreted by me (1pt. min.). @ -[None done] What testing was considered but not performed or refused? (CT, X-rays, U/S, labs)? Why? @ -[None] What meds were considered but not given or refused? Why? @ -[None] Did you discuss the management of the patient with other professionals (professionals i.e. , PA, [employer], lab, RT, psych nurse, social professionals, customer support consultant, teacher, port patrol officer, case managers)? Give summary @ -Juan Branch, Orthopedics Was smoking cessation discussed for >3mins.? @ -[No] Was critical care preformed (if so, how long)? @ -[No] Were there social determinants of health that impacted care today? How? (Homelessness, low income, unemployed, alcoholism, drug addiction, transportation, low edu. Level, literacy, decrease access to med. care, [facility], rehab)? @ -[No] Was there de-escalation of care discussed even if they declined (Discuss DNR or withdrawal of care, Hospice)? DNR status @ -[No] What co-morbidities impacted this encounter? (DM, HTN, Smoking, COPD, CAD, Cancer, CVA, ARF, Chemo, Hep., AIDS, mental health diagnosis, sleep apnea, morbid obesity)? @ -[None] Was patient admitted / discharged? Hospital course, mention meds given and route, prescriptions, significant lab abnormalities, going to OR and other pertinent info. @ -Discharged. 57-year-old male presents emergency Department with chief complaint of back pain.. Patient had a thorough history and physical exam performed. Physical exam essentially unremarkable. Heart rate regular rate and rhythm, lungs clear to auscultation bilaterally abdomen soft and nontender. No focal neurologic deficits on exam. Patient able to ambulate with steady gait and move extremities freely. Patient had lab work and imaging which were essentially unremarkable. Patient given Dilaudid and steroids with symptomatic improvement. I discussed results in detail the patient verbalized understanding and all questions were addressed. Agreeable with plan for discharge home. Recommend close follow-up with PCP in 1-2 days. Return precautions discussed. Case discussed with [facility]. [place] [facility] [place] who agrees with plan of care Undiagnosed new problem with uncertain prognosis? @ -[No] Drug Therapy requiring intensive monitoring for toxicity (Heparin, Nitro, Insulin, Cardizem)? @ -[No] Were any procedures done? @ -[No] Diagnosis/symptom? @ -Post-op Pain - Right hip pain Acute, or Chronic, or Acute on Chronic? @ -Acute Uncomplicated (without systemic symptoms) or Complicated (systemic symptoms)? @ -Uncomplicated Side effects of treatment? @ -[No] Exacerbation, Progression, or Severe Exacerbation? @ -[No] Poses a threat to life or bodily function? How? (Chest pain, [place], [place], pneumonia, PE, COPD, DKA, ARF, appy, cholecystitis, CVA, Diverticulitis, Homicidal, Suicidal, threat to staff... and all critical care pts) @ -Low likelihood - Lab Data Lab Results 04/27/23 Range/Units 11:26 Urine Color Yellow Urine Appearance Clear (Clear) Urine pH 6.5 (5.0-8.0) Ur Specific [place] 1.010 (1.001-1.035) Urine Protein Negative (Negative) Urine Glucose (UA) Negative (Negative) Urine Ketones Negative (Negative) Urine Blood Negative (Negative) Urine Nitrite Negative (Negative) Urine Bilirubin Negative (Negative) Urine Urobilinogen <2.0 (<2.0) mg/dL Ur Leukocyte Esterase Negative (Negative) Disposition Clinical Impression: Back pain, Post-op pain, Right hip pain Disposition: HOME SELF-CARE Condition: Fair Additional Instructions: Please monitor symptoms closely Please take Medrol Dosepak as prescribed Please return to the nearest emergency department if symptoms worsen or persist Prescriptions: methylPREDNISolone Dose Pack [Medrol Dose Pack] 4 mg PO DIRECTED #21 tab Is patient prescribed a controlled substance at d/c from ED?: No Referrals: Mack Fox DO [Primary Care Provider] - 1-2 days Jalen Parks DO [Doctor of Osteopathic Medicine] - 1-2 days Time of Disposition: 14:17
[2023-04-27] MEDS ORDERED: HYDROmorphone 0.5 MG/0.5 ML SYRINGE IM STA (11:24)
--- NOTE | 2023-04-27 11:52 | XR ---
3 view lumbar spine. DATE: 04/27/2023. COMPARISON: 04/20/2023. CLINICAL HISTORY: Back pain. IMPRESSION: Surgical changes of spinal fusion and SI joints fusion is seen beginning at the level of L4 which is unchanged. Surgical yvette are seen overlying the surgical region. Discectomy is seen at L5-S1. Some scattered mild endplate changes are seen at L3-4 and L4-5 which are likely degenerative. There are no acute osseous abnormalities.
--- NOTE | 2023-04-27 11:57 | XR ---
EXAMINATION TYPE: XR Hip Bilateral and AP pelvis DATE OF EXAM: 04/27/2023 COMPARISON: NONE HISTORY: Postfusion pain. TECHNIQUE: A single AP view of the pelvis is obtained. Two views of the hip are obtained. Impression: L4 spinal fusion including L5 and the SI joints bilaterally is noted. There are surgical yvette over lying the surgical site. There is a right total hip arthroplasty. No acute osseous abnormalities are otherwise seen. The left hip joint space is preserved.
[2023-04-27 13:37] LABS: Appearance,Urine Clear (Clear); Color,Urine Yellow; PH, Urine 6.5 (5.0-8.0); Protein,Urine Negative (Negative)
[2023-04-27 13:38] LABS: Bilirubin,Urine Negative (Negative); Blood,Urine Negative (Negative); Glucose,Urine (UA) Negative (Negative); Ketones,Urine Negative (Negative); Leukocyte Esterase,Urine Negative (Negative); Nitrite,Urine Negative (Negative); Urobilinogen,Urine <2.0 mg/dL (<2.0)
[2023-04-27 14:41] VITALS: BP 122/74; PULSE 80; RESP 18
== END 2023-04-27 14:31 | disposition home or self-care (01) ==
LOC: EC 09:40
DX: G89.18 Other acute postprocedural pain (principal); M25.551 Pain in right hip; M54.9 Dorsalgia, unspecified; J44.9 Chronic obstructive pulmonary disease, unspecified; I50.9 Heart failure, unspecified; F41.9 Anxiety disorder, unspecified; F32.A Depression, unspecified; F12.90 Cannabis use, unspecified, uncomplicated; F17.200 Nicotine dependence, unspecified, uncomplicated; Z79.899 Other long term (current) drug therapy; Z88.8 Allergy status to other drugs, medicaments and biological substances
CPT/HCPCS: 81003; 72100; 73521; 99283; 96372; J1170

== ENCOUNTER 2023-06-11 20:12 | Emergency (ER) | payer MEDICARE ==
--- NOTE | 2023-06-11 20:24 | ED ---
Back Pain HPI - General Chief Complaint: Back Pain/Injury Stated Complaint: Back Pain Time Seen by Provider: 06/11/23 20:24 Source: patient, RN notes reviewed Mode of arrival: wheelchair Limitations: no limitations - History of Present Illness Initial Comments: 57-year-old male with history of spinal fusion approximately [address] Parks presenting with chief complaint of back pain. Patient states that this feels like a scraping tearing pain. This is over a very localized portion of the back near the incision, he states that he can feel a small bulge in this area. No loss of bowel or bladder control or saddle paresthesia. No injuries. No fevers. No nausea or vomiting. No numbness, tingling, weakness. - Related Data Home Medications Medication Instructions Recorded Confirmed HYDROcodone/APAP 7.5-325MG [[place] 1 tab PO BID 04/17/20 04/27/23 7.5-325] Pantoprazole Sodium [Protonix] 40 mg PO DAILY 04/17/20 04/27/23 QUEtiapine [SEROquel] 50 mg PO HS 09/14/21 04/27/23 rOPINIRole HCL [Requip] 1 mg PO HS 09/17/21 04/27/23 Morphine Sulfate ER [Ms Contin] 30 mg PO Q12H 03/06/22 04/27/23 carvediloL [Coreg] 6.25 mg PO BID 04/06/22 04/27/23 DULoxetine HCL [Cymbalta] 30 mg PO HS 08/17/22 04/27/23 Furosemide [Lasix] 20 mg PO BID 08/17/22 04/27/23 Losartan [Cozaar] 25 mg PO DAILY 08/17/22 04/27/23 Mirtazapine [Remeron] 30 mg PO HS 08/17/22 04/27/23 Aspirin [[place] Aspirin EC] 81 mg PO DAILY 01/22/23 04/27/23 SUMAtriptan succinate [Imitrex] 100 mg PO BID PRN 04/27/23 04/27/23 Sennosides-Docusate Sodium 2 tab PO DAILY PRN 04/27/23 04/27/23 [Senokot-S] Tiotropium 2.5 Mcg/Puff [Spiriva 2 puff INHALATION RT-DAILY 04/27/23 04/27/23 Respimat 2.5 Mcg] Previous Rx's Medication Instructions Recorded Spironolactone [Aldactone] 25 mg PO DAILY #30 tab 12/26/21 Acetaminophen Tab [Tylenol] 650 mg PO Q6HR tab 04/23/23 Cyclobenzaprine [Flexeril] 5 mg PO TID #21 tablet 04/23/23 Magnesium Hydroxide [Milk of 2,400 mg PO DAILY PRN ml 04/23/23 Magnesia] cefaDROXiL [Duricef] 500 mg PO Q12HR 5 Days #10 cap 04/23/23 methylPREDNISolone Dose Pack 4 mg PO DIRECTED #21 tab 04/27/23 [Medrol Dose Pack] Allergies Allergy/AdvReac Type Severity Reaction Status Date / Time lisinopril Allergy Swelling Verified 06/11/23 20:21 of the mouth Review of Systems ROS Statement: Those systems with pertinent positive or pertinent negative responses have been documented in the HPI. ROS Other: All systems not noted in ROS Statement are negative. Past Medical History Past Medical History: Chest Pain / Angina, Heart Failure, COPD, Eye Disorder, Musculoskeletal Disorder, Neurologic Disorder Additional Past Medical History / Comment(s): COVID 17 January-Jan 2022, Multiple sclerosis USES A CANE/ walker TO AMBULATE, falls. has had in past occasional DOUBLE VISION. CHRONIC BACK NECK PAIN. HAD SPINAL STIMULATOR, THEN REMOVED; Migraine headache. Crohn's disease.lt ear [place] History of Any Multi-Drug Resistant Organisms: None Reported, MRSA Date of last positivie culture/infection: 2014 MDRO Source:: lower back Past Surgical History: Appendectomy, Back Surgery, Bowel Resection, Hernia Repair Additional Past Surgical History / Comment(s): CERVICAL FUSION. SPINAL STIMULATOR implantation, revision and removal. FOREIGN BODY REMOVED RT CHEST WALL. 10/18/2015 wire removed from back. (from stimulator) Past Anesthesia/Blood Transfusion Reactions: Previous Problems w/ Anesthesia Additional Past Anesthesia/Blood Transfusion Reaction / Comment(s): STATES TAKES A LONG TIME TO WAKE UP Past Psychological History: Anxiety, Depression Smoking Status: Current every day smoker Past Alcohol Use History: None Reported Past Drug Use History: Marijuana - Past Family History Father Family Medical History: Cancer, Diabetes Mellitus Additional Family Medical History / Comment(s): CABG-TRIPLE BYPASS, Mother Family Medical History: Cancer, CVA/TIA, Diabetes Mellitus Additional Family Medical History / Comment(s): Stroke Brother(s) Additional Family Medical History / Comment(s): cardiomyopathy General Exam - General Exam Comments Initial Comments: Visual Physical Exam Vital signs reviewed General: Well-appearing, nontoxic, no acute distress. Head: Normocephalic, atraumatic Eyes: PERRLA, EOMI ENT: Airway patent Chest: Nonlabored breathing Skin: No visual rash, normal skin tone Neuro: Alert and oriented 3 Musculoskeletal: No gross abnormalities Limitations: no limitations General appearance: alert, in no apparent distress Head exam: Present: atraumatic, normocephalic, normal inspection Eye exam: Present: normal appearance, EOMI Neck exam: Present: normal inspection, full ROM Respiratory exam: Absent: respiratory distress Back exam: Present: other (There is a small bulging area near the incision to the lower back). Absent: paraspinal tenderness, vertebral tenderness Neurological exam: Present: alert, oriented X3 Psychiatric exam: Present: normal affect, normal mood Skin exam: Present: warm, dry, intact, normal color. Absent: rash Course Vital Signs 06/11/23 06/12/23 20:19 00:36 Temperature 97.8 F Pulse Rate 84 66 Respiratory 18 18 Rate Blood Pressure 104/64 107/71 O2 Sat by Pulse 98 97 Oximetry Medical Decision Making - Medical Decision Making Was pt. sent in by a medical professional or institution (WINDY Perez, SPRING [employer]GER, urgent care, hospital, or long term...) When possible be specific @ -No Did you speak to anyone other than the patient for history (EMS, parent, family, police, friend...)? What history was obtained from this source @ -No Did you review nursing and triage notes (agree or disagree)? Why? @ -I reviewed and agree with nursing and triage notes Were old charts reviewed (outside hosp., previous admission, EMS record, old EKG, old radiological studies, urgent care reports/EKG's, long term records)? Report findings @ -No old charts were reviewed Differential Diagnosis (chest pain, altered mental status, abdominal pain women, abdominal pain men, vaginal bleeding, weakness, fever, dyspnea, syncope, headache, dizziness, GI bleed, back pain, seizure, CVA, palpatations, mental health, musculoskeletal)? @ - [facility] Differential Back Pain: Strain, zoster, cauda equina syndrome, epidural abscess, vertebral osteomyelitis, discitis, fracture, subluxation, disc herniation, DJD, spinal stenosis, dissection, AAA, pancreatitis, peptic ulcer disease, pyelonephritis, kidney stone this is not meant to be an all-inclusive list. EKG interpreted by me (3pts min.). @ -As above X-rays interpreted by me (1pt min.). @ -None done CT interpreted by me (1pt min.). @ -Stable postoperative changes related to L5 through S1 bilateral pelvic fixation at L5 through S1 level laminectomy. Underlying degenerative changes, similar to previous. No evidence of an acute bony abnormality U/S interpreted by me (1pt. min.). @ -None done What testing was considered but not performed or refused? (CT, X-rays, U/S, labs)? Why? @ -None What meds were considered but not given or refused? Why? @ -None Did you discuss the management of the patient with other professionals (professionals i.e. , PA, SPRING FORGER, lab, RT, psych nurse, social psychologist, anesthesiology faculty, teacher, pharmaceutical officer, case management assistant)? Give summary @ -No Was smoking cessation discussed for >3mins.? @ -No Was critical care preformed (if so, how long)? @ -No Were there social determinants of health that impacted care today? How? (Homelessness, low income, unemployed, alcoholism, drug addiction, transportation, low edu. Level, literacy, decrease access to med. care, half-way, rehab)? @ -No Was there de-escalation of care discussed even if they declined (Discuss DNR or withdrawal of care, Hospice)? DNR status @ -No What co-morbidities impacted this encounter? (DM, HTN, Smoking, COPD, CAD, Cancer, CVA, ARF, Chemo, Hep., AIDS, mental health diagnosis, sleep apnea, morbid obesity)? @ -None Was patient admitted / discharged? Hospital course, mention meds given and route, prescriptions, significant lab abnormalities, going to OR and other pertinent info. @ -57-year-old male presenting with chief complaint of lower back pain. He had a recent fusion [address] Parks. History of physical exam were conducted. There is a small area of bulging where the pain is localized. No vertebral body tenderness or paraspinal muscle tenderness. There are no cellulitic changes. No fevers or chills. CT of the lumbar spine shows no acute bony abnormality. This may be due to internal sutures which are starting to present to the surface. Vital signs are WNL and patient's pain is controlled with Toradol. He'll be discharged home and instructed to follow-up with his surgeon. Follow-up with PCP. Report back to ER with any new or worsening symptoms. Discussed return parameters and answered all questions. Patient conveyed verbal understanding and agreed to the plan. I discussed this case in detail with my attending Dr. Solorio Undiagnosed new problem with uncertain prognosis? @ -No Drug Therapy requiring intensive monitoring for toxicity (Heparin, Nitro, Insulin, Cardizem)? @ -No Were any procedures done? @ -No Diagnosis/symptom? @ -Postop pain Acute, or Chronic, or Acute on Chronic? @ -Acute Uncomplicated (without systemic symptoms) or Complicated (systemic symptoms)? @ -Uncomplicated Side effects of treatment? @ -No Exacerbation, Progression, or Severe Exacerbation? @ -No Poses a threat to life or bodily function? How? (Chest pain, [place], VT, pneumonia, PE, COPD, DKA, ARF, appy, cholecystitis, CVA, Diverticulitis, Homicidal, Suicidal, threat to staff... and all critical care pts) @ -No Disposition Clinical Impression: Post-op pain Disposition: HOME SELF-CARE Condition: Good Instructions (If sedation given, give patient instructions): Acute Low Back Pain (ED) Additional Instructions: Follow up with surgeon. Report back to ER with any new or worsening symptoms. Is patient prescribed a controlled substance at d/c from ED?: No Referrals: Mack Fox DO [Primary Care Provider] - 1-2 days Jalen Parks DO [Doctor of Osteopathic Medicine] - 1-2 days Time of Disposition: 00:15
[2023-06-11 20:40] VITALS: RESP 18; TEMP 97.8
--- NOTE | 2023-06-11 23:14 | CT ---
EXAMINATION TYPE: CT lumbar spine wo con CT DLP: 1130.6 mGycm, Automated exposure control for dose reduction was used. DATE OF EXAM: 06/11/2023 8:46 PM COMPARISON: CT lumbar spine 04/21/2023. CLINICAL INDICATION:Male, 57 years old with history of pain, 6 weeks post-op; PHH, back pain, 6 weeks post-op lumbar fusion TECHNIQUE: Multiple axial images were obtained from the midportion of T11 through the sacroiliac rebeca nts. Soft tissue and bone windows in coronal and sagittal planes were obtained and reviewed. 3-D ref ormats of the bones were created on a separate workstation and submitted for review. Contrast used: mL of , none. Oral contrast used: none. FINDINGS: Redemonstration posterior hardware fusion with bilateral pedicle screws and posterior fixation rods L 5-S1 with prosthetic disc interspace material L5-S1, with posterior rods continuing distally to conne ct to 1 screw bilaterally which extend through the SI joints before terminating in the iliac bones. A dditional bilateral screws are seen traversing the SI joints, but these do not appear to be connected to the rest of the hardware, and are likely abandoned. Hardware appears intact and unchanged from pr evious. Post laminectomy changes again seen at the L5-S1 level. There is limitation by beam hardening artifac t, with no clear-cut posterior soft tissue fluid collection seen. The canal is not well assessed. Osseous mineralization appears appropriate. Degenerative disc changes greatest at L5-S1 including Silke morl's node at the inferior endplate of L5, similar to the prior exam. No progressive osseous destruc tion or change in disc interspacing to suggest active discitis/osteomyelitis. Otherwise no significan t change in the appearance/alignment of the lumbar spine, with level by level description previously provided. Other soft tissue findings are similar to previous, again some low-attenuation hepatic lesions and pa rtially exophytic small low attenuation right renal lesion are partially seen but incompletely assess ed. Partially visualized right total hip arthroplasty. IMPRESSION: 1. Stable postoperative changes related to C7-T2-[id number] pelvic fixation and L5-S1 level laminecto my. 2. Underlying degenerative changes, similar to previous. 3. No evidence of an acute bony abnormality.
[2023-06-11] MEDS ORDERED: KETOROLAC 15 MG/ML 1 ML VIAL IM STA (23:27)
[2023-06-12 00:55] VITALS: BP 107/71; PULSE 66
== END 2023-06-12 00:50 | disposition home or self-care (01) ==
LOC: EC 20:12
DX: G89.18 Other acute postprocedural pain (principal); I50.9 Heart failure, unspecified; J44.9 Chronic obstructive pulmonary disease, unspecified; F41.9 Anxiety disorder, unspecified; F32.A Depression, unspecified; Z86.16 Personal history of COVID-19; F17.200 Nicotine dependence, unspecified, uncomplicated; F12.90 Cannabis use, unspecified, uncomplicated; Z88.8 Allergy status to other drugs, medicaments and biological substances; Z79.899 Other long term (current) drug therapy; Z79.82 Long term (current) use of aspirin
CPT/HCPCS: 72131; 99284; 96372; J1885

== ENCOUNTER → 2023-08-21 | Outpatient (CLI) | payer MEDICARE ==
[2023-08-21 12:31] LABS: NT-Pro-B-Type Natriuretic Pept 374 pg/mL
[2023-08-21 17:03] LABS: BUN/Creat Ratio 8.11 Ratio (12.00-20.00); Blood Urea Nitrogen 7.3 mg/dL (9.0-27.0); Calcium 9.2 mg/dL (8.7-10.3); Carbon Dioxide 26.2 mmol/L (21.6-31.8); Chloride 100 mmol/L (96-109); Glucose 111 mg/dL (70-110); Potassium 4.8 mmol/L (3.5-5.5); Sodium 138 mmol/L (135-145)
== END | disposition home or self-care (01) ==
LOC: LABWHC1 11:40
PROVIDERS: ATTEND Internal Medicine Cardiovascular Disease
DX: I50.22 Chronic systolic (congestive) heart failure (principal)
CPT/HCPCS: 36415; 80048; 83880

== ENCOUNTER → 2023-10-19 | Day surgery (SDC) | payer MEDICARE ==
[2023-10-19 08:29] VITALS: BP 103/66; PULSE 71; RESP 16; TEMP 97.6
[2023-10-19] MEDS: GLUCAGON 1 MG/ML VIAL IM STA (09:20)
--- NOTE | 2023-10-19 18:18 | MR ---
EXAMINATION TYPE: MR Enterography DATE OF EXAM: 10/19/2023 10:02 AM COMPARISON: None CLINICAL INDICATION: Male 58 years old with a history of K50.90 CROHN'S DISEASE, UNSPECIFIED, W/O COM PLICAT. Crohn's disease, hx of bowel resection TECHNIQUE: Standard multiplanar, multisequence imaging of the abdomen is performed without and with I V contrast, patient is injected with 1350 mL intravenous Gadavist gadolinium contrast. Oral NeuLumEX was given as per enterography protocol. FINDINGS: LOWER CHEST: No significant findings. ABDOMEN Bowel: The small bowel distention is inadequate proximally. There is mild wall thickening of the ter ursula ileum with upstream small bowel feces. There is feces however throughout the large bowel noted. No additional evidence to suggest abnormal bowel wall thickening involving a small bowel or large deanna wel. . Peritoneum: No evidence of pneumoperitoneum, free fluid, or adenopathy. Liver: Diffusely scattered high T2 signal cysts are seen throughout the liver parenchyma. Gallbladder and Bile ducts: Low signal gallstones are present in the gallbladder lumen which is in th e nondependent portion possibly adhered to the wall. Pancreas: Multiple high T2 cystic lesions are seen throughout the pancreatic parenchyma. The pancreat ic duct is tortuous and prominent measuring up to 4 mm. Pancreatic head cystic area seen on coronal i maging measuring 25.25 mm. Spleen: Within normal limits for size. Adrenal glands: Unremarkable. Kidneys: Right high T2 signal renal cyst. There is layering high T1 signal on also present. Bladder: Unremarkable. Reproductive: Unremarkable. Lymph Nodes: No lymphadenopathy visualized. Vasculature: Unremarkable. No aortic aneurysm. Musculoskeletal: The osseous structures appear intact. Postsurgical changes of the spine with hardwar e in place which limits evaluation. Right hip arthroplasty is also present with susceptibility artifa ct. Abdominal wall: Unremarkable. IMPRESSION: 1. Post contrast imaging is limited due to susceptibility artifact. Evaluation for mucosal enhanceme nt is limited due to susceptibility artifact on T1-weighted postcontrast imaging. 2. There is some degree of obstruction at the terminal ileum with upstream small bowel feces noted. 3. Pancreatic head lesion that to be present which is incompletely evaluated due to susceptibility a rtifact on postcontrast imaging. Further evaluation pancreatic mass protocol MRI recommended 4. With adherent gallstone to the gallbladder lumen. 5. Simple appearing scattered hepatic cysts. 6. Right renal Bosniak type II renal cyst.
== END ==
LOC: RADMRIMAIN 07:56
PROVIDERS: ATTEND Internal Medicine Gastroenterology
DX: K50.90 Crohn's disease, unspecified, without complications (principal); K80.20 Calculus of gallbladder without cholecystitis without obstruction; K76.89 Other specified diseases of liver; N28.1 Cyst of kidney, acquired; Z90.49 Acquired absence of other specified parts of digestive tract
CPT/HCPCS: 96372; 72197; 74183; J1610; A9585

== ENCOUNTER → 2023-10-29 | Outpatient (CLI) | payer MEDICARE ==
--- NOTE | 2023-10-29 23:23 | MR ---
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 COMPARISON: Cervical spine x-ray from 05/21/2024 FINDINGS: Sagittal images of the cervical spine show the craniocervical junction to appear within nor mal limits. The cervical and upper thoracic spinal cord shows some loss of caliber at C6-C7 level wi thout abnormal signal. Loss of normal cervical curvature is present. Artifact from anterior fusion pl ate and artificial disc material at C6-C7 level is present. Mild disc space narrowing at C7-T1 level with heterogeneous Modic type II endplate change otherwise Vertebral body heights and disc space heig hts are maintained above and below surgical levels. Axial images show C2-C3 and C3-C4 level to appear within normal limits. Axial images at C4-C5 level from facet degenerative changes causing mild bilateral neural foraminal n arrowing. Axial images at C5-C6 level show uncovertebral facet degenerative change causing mild left-sided neur al foraminal narrowing. Axial images at C6-C7 levels artifact from surgical change otherwise are unremarkable. Axial images at C7-T1 level shows broad-based left paracentral disc protrusion effacing the anterior thecal sac, bilateral neural foramen are patent. IMPRESSION: Postsurgical changes C6-C7 level is seen with some chronic myelomalacia of the spinal cor d at this levels suspected. There is loss of normal cervical curvature. There is multilevel degenerat chriss change greatest at C7-T1 level seen as detailed above.
== END | disposition home or self-care (01) ==
LOC: RADMRIMAIN 21:00
PROVIDERS: ATTEND Orthopaedic Surgery
DX: M47.812 Spondylosis without myelopathy or radiculopathy, cervical region (principal); M54.12 Radiculopathy, cervical region; M62.81 Muscle weakness (generalized)
CPT/HCPCS: 72141

== ENCOUNTER → 2024-01-25 | Outpatient (CLI) | payer MEDICARE | END | disposition home or self-care (01) | LOC: LABPAT 11:37 | PROVIDERS: ATTEND Orthopaedic Surgery | DX: Z01.812 Encounter for preprocedural laboratory examination (principal); M50.20 Other cervical disc displacement, unspecified cervical region; M48.061 Spinal stenosis, lumbar region without neurogenic claudication; Z22.322 Carrier or suspected carrier of Methicillin resistant Staphylococcus aureus | CPT/HCPCS: 86850; 86900; 86901; 87070 ==

== ENCOUNTER 2024-01-31 06:45 | Inpatient (IN) | payer MEDICARE ==
[2024-01-29 14:56] VITALS: BMI 23.7
--- NOTE | 2024-01-31 06:33 | P.HPOR ---
History of Present Illness H&P Date: 01/23/24 .D:Date: 01/23/24 : 11:25am .T:Title: [facility] Recheck and Pre-Operative Assessment Age: 58 year Height: 6'1" Weight: 190 lbs BMI: 25.07 kg/m2 Occupation: Disabled VAS: 8 CC: Re-check CERVICAL, PRE OP ASSESSMENT HISTORY: Mr. Monroe presents today 01/23/24 for re-evaluation and pre operative visit for his cervical spine. Since his last visit his sx has progressed and he has deteriorated farily substantially. He is now requiring a walker to get around and cannot stand for any period of time without it. He states he is more unsteady on his feet than he has ever been in the past and feels like he cannot walk a straight line. He states he tries to make his hands cooperate, but it feels like they do not want to do what he needs them to. He is dropping things more often and he is having more fine motor disruptions along with his gait deterioration. He states increased pain in the neck accompanied by increaed frequency of HA[place] related to this. He states no new trauma or injury to the neck. He states nothing seems to make it better any more. He has taken motrin, tylenol, prednisone, flexeril in the past, but these now do nothing for him he states. He is frustrated as he cannot find relief with anything. He states no f/c/sob/cp at this time. He states no bowel or bladder issues at this time. Denies any blurred, double or change in vision recently. He states he is ready for surgery on his neck as he cannot keep living like this. He is unable to parcitipate in his normal ADLs without significant increaed effort and/or help at this time. * Mr. Monroe presents to the office today, 11/16/23, for re-evaluation of neck pain and review MRI results of the lumbar spine. He reports experiencing a continued ache-like, throbbing pain throughout the neck. He states his neck pain radiates down into the bilateral upper extremities, persisting around the shoulder and biceps region on the right and the entire arm on the left. He notes issues with left hand dexterity. He states his left upper extremity pain is much more severe than the right at this time. He notes his upper extremity pain is associated with numbness and tingling bilaterally. He states his symptoms have progressively worsened over the last several weeks. He states is current symptoms worsen after all activity. He reports experiencing severe sleep disturbances related to his ongoing pain and associated symptoms. He has trialed all conservative measures listed below with no significant or sustained relief. The patient is currently taking [place] and Morphine for relief of his current symptoms. Otherwise, the patient denies any f/c/sob/cp, perineal numbness or tingling, bowel or bladder incontinence/retention. Patient is ambulatorywit a cane. The patients' past social, medical, family, surgical history, as well as review of systems, have been reviewed. Please refer to the Neurosurgery History and Physical form that has been scanned into our electronic medical record system. 16 points review of systems completed and as stated in HPI, all other systems reviewed are negative. PAST TREATMENTS: PAST IMAGING: - YES XR, MRI, CT SCAN COMPLETED. TRAUMA RELATED: - NO WORK RELATED: - NO PHYSICAL THERAPY: - YES, WITHOUT RELIEF. CAN NO LONGER PARTICIPATE DUE TO PROGRESSIVE CHANGES PHYSICIAN DIRECTED HOME EXERCISE PROGRAM: - YES, X6 WEEKS. CAN NO LONGER DO SECONDARY TO WEAKNESS ACTIVITY MODIFICATION: - YES -CURRENTLY NEEDS WALKER NOW HE CANNOT WALK WITHOUT ANY MORE MEDICATIONS: - [place] & Morphine ALTERNATIVE INTERVENTIONS (CHIROPRACTIC, ACUPUNCTURE, MASSAGE, RICE): - Yes (home heat/ice therapies); mild, NO RELIEF -MASSAGE - NO HELP BRACING: - No INJECTIONS (CRYSTAL, TF, RFA): - PREVIOUSLY DONE, NO HELP MEDICAL HISTORY: Past Medical History: Reviewed, see appropriate section of the chart for details. Past Spine Surgical History: Yes; h/o C6-7 ACDF approx 20 years ago Social History: Reviewed, see appropriate section of the chart for details. Family History: Reviewed, see appropriate section of the chart for details. Current Medications: P1Rx: baclofen 20 mg tablet Ref: 0 Instructions: take 1 tablet (20 mg) by oral route 2 times daily Rx: DULoxetine 30 mg capsule,delayed release Ref: 0 Instructions: take 1 capsule (30 mg) by oral route daily Rx: HYDROcodone 7.5 mg-acetaminophen 325 mg tablet Ref: 0 Instructions: take 1 tablet by oral route TID Rx: mirtazapine 30 mg tablet Ref: 0 Instructions: take 1 tablet (30 mg) by oral route once daily before bedtime Rx: pantoprazole 40 mg tablet,delayed release Ref: 0 Instructions: take 1 tablet (40 mg) by oral route DAILY Rx: morphine Ref: 0 Rx: albuterol sulfate HFA 90 mcg/actuation aerosol inhaler Ref: 0 Instructions: inhale 2 puffs (180 mcg) by inhalation route every 4-6 hours as needed Rx: carvediloL 6.25 mg tablet Ref: 0 Instructions: take 1 tablet (6.25 mg) by oral route 2 times per day with food Rx: furosemide 20 mg tablet Ref: 0 Instructions: take 1 tablet (20 mg) by oral route once daily Rx: losartan 25 mg tablet Ref: 0 Instructions: take 1 tablet (25 mg) by oral route once daily Rx: rOPINIRole 1 mg tablet Ref: 0 Instructions: take 1 tablet (1 mg) by oral route 3 times per day Rx: spironolactone 25 mg tablet Ref: 0 Instructions: take 1 tablet (25 mg) by oral route once daily Rx: SUMAtriptan 20 mg/actuation nasal spray Ref: 0 Rx: risperiDONE Ref: 0 PHYSICAL EXAM: General: AOX3, NAD, Well hydrate, Well nourished HEENT: No lumps or masses Extremities: No color changes, no pooling Hairy Patches: ABSENT Dorsal Skin Dimples: Normal [employer] spots: ABSENT Surgical Incisions: Muscle Appearance: Well formed, no atrophy Palpation: Midline: YES, MILD Paracervical: YES, MODERATE C4-T1 Parathoracic: NO Paralumbar: NO SIJ Testing: No Postural Balance: Coronal: BALANCED Sagittal: BALANCED Shoulder height: LEVEL Pelvic Girdle: LEVEL ROM and Appearance: Neck: RESTRICTED Lumbar: UNRESTRICTED Shoulders: Symmetrical Hips: Symmetrical Knees: Symmetrical Hands: Symmetrical Feet: Symmetrical VASCULAR STATUS: RUE- 2 LUE-2 RLE-2 LLE-2 Edema: NONE NEUROLOGICAL EXAMINATION: Mental Status: Awake, alert, oriented fully with normal attention, concentration and memory. Fluent appropriate speech. CRANIAL NERVES: I: Olfactory not tested. II: Visual acuity normal, no visual field deficit noted with confrontation. III,IV: Normal pupillary reflexes & intact extraocular movements without nystagmus. V,: Intact symmetrical facial sensation. VII: Intact symmetrical facial motor movementVIII: Hearing intact. IX,X: Intact gag, swallow, & normal voice. XI: Sternocleidomastoid, trapezius function intact. XII: Tongue midline with normal movements. TENSIONING: SLR-NEG Lhermittes- NEG Spurling's Sign- POS Cubital Percussion- NEG Tinels at wrist- NEG MOTOR EXAM (0-5/5, NT) Muscle appearance:Symmetrical, without signs of atrophy or dystrophy UPPER EXTREMITY RIGHT LEFT Shoulder Abduction 4- 3 Biceps 4- 4- Triceps 4- 4- Wrist Extension 4- 4- Hand Intrinsics 3 4- Movie Projectionist 3 3 -Hand and finger dexterity intact bilaterally? NO, DETERIORATION HAS HAPPENED -Dysdiadochokinesia examination negative bilaterally? NO, PT NO LONGER ABLE LOWER EXTREMITY RIGHT LEFT Hip Flexion 4 4 Knee Extension 4 4+ Knee Flexion 4 4 Dorsiflexion 4 4+ Plantarflexion 4 4+ EHL 4 4 FHL 4 4 REFLEXES (0-4/2, NT): RUE-3+LUE-3+ RLE-2 LLE-3+ PATHOLOGICAL REFLEXES: Hoffmans: PRESENT B/L UE, BRISK NOW Clonus: ABSENT BL Babinski: NEG BL Rectal Tone: INTACT SENSATION (0-4, NT): RUE-1LUE-1 RLE-2 LLE-2 Dermatomal deficit: C5-C6, C6-7 B/L GAIT AND FUNCTIONAL EVALUATION: Ambulatory aids- DETERIORATION, NEEDS WALKER FOR AMBUATION NOW Rombergs test- NEG toe/heel walk- NOT INTACT Squatting to a min of 60 deg and back- NOT ABLE Single leg stance- UNABLE Hand to finger (nose)- ABLE smooth Trendelenburg sign: NT DUE TO IMBALANCE IMAGING Xray, multiview, from 10/11/23 done at [facility] of cervical spine; MRI of cervical spine w/o done on 10/29/23 at [facility]; and CT of brain and C spine w/o from 04/11/23 done at [facility] are all reviwed once agian in office today with the patient. FINDGINDS: These demonstrate again C6-7 post surgical changes with ACDF cons truct with reasonable fusion noted both on CT and XR. The level however was fused neutral to positive sagittal and contributes to kyphotic deformity that is present in the patients cervical spine. There is ASD at C5-6 noted on Xray and MRI confirms this with HNP at C5-6 with spondylosis and disc collapse with central and b/l foraminal stenosis that is moderate to severe. SAC at this level is measured at 9.2 mm with cord contact and begining stages of myelomalacia noted. At C6-7 on MRI the post surgical changes are present, there is howevere are large disc osteophyte complex noted which is contacting the cord and causing severe stenosis at this level. SAC measureing 7.8 mm here due to this. B/l foraminal stenosis is moderate to severe and worse on the right side than left. This is where there are acute on chronic changes of myelomalacia which correlate with the patients synmptoms and myelopathy. 23 degress of kyphosis are measured centered around the C5-6 level which is contributed by the C5-6 collapse as well as the neutral position of the C6-7 fusion as well as some ASD noted at C7-T1 with disc height collapse and dessication. No significant stenosis at the C7-T1 level noted at this time. No acute fractures noted. No lesions noted. C0-1 and C1-2 are stable on all films. F/E films show no further instability at C0-1 or C1-2 levels. IMPRESSION: It was my pleasure to have seen and examinedMark.I reviewed the patient's clinical syndrome, physical findings, and imaging studies during the appointment today. It is my impression that the patient has a diagnosis of. 1. CERVICAL MYELOPATHY 2. 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 S/P C6-7 ACDF, LARGE DISC OSTEOPHYTE COMPLEX, SEVERE CENTRAL STENOSIS 4. UE PARESTHESIAS AND RADICULOPATHY 5. UE/LE WEAKNESS 6. GAIT DISTURBANCE 7. NECK PAIN PLAN: SURGICAL RECOMMENDATION - Stage I: C5-6 anterior cervical discectomy and fusion and Stage II: C5-7 posterior decompression and fusion DISCUSSION: -I once again discussed treatment in the form of operative versus non-operative with the patient. We went over risks and benefits of both as well as risks and benefits of the surgical procedure as outlined below. I continue to recommended surgical intervention in the form of a Stage I: C5-6 anterior cervical discectomy and fusion and Stage II: C5-7 posterior decompression and fusion secondary to his symptomatic C5-6 adjacent segment disease, as well as C5-6 disc herniation with stenosis, C6-7 stenosis, and progressive bilateral upper extremity radiculopathy and weakness. The patient verbally understands all risks, benefits, and alternatives to the procedure and elects to proceed at this time. He will obtain all necessary clearances prior to his scheduled surgery date. He states he can no longer continue to live how he is and is needing more assistance at home than he has ever needed before which is concerning to him. He is needing a walker now for all of his ambulation as he is unstead on his feet to the point of falling. -Consents and Clearances reviewed and confirmed. PCP, Pulm, Cardio clearances uploading to chart. -Labs, EKG and CXR completed. MRSA being done today after visit. -All questions answered. Pt comfortable with plan as outlined. Spine Surgery Risk Review Mr. Monroe is presenting for evaluation of neck and bilateral upper extremity pain, bilateral upper extremity numbness and tingling, weakness in UE and LE, progressive gait disturbance as well as fine motor disruption that is progressively getting worse. It was my pleasure to have seen and examined Mr. Monroe. In our visit today we have had a chance to go over subjective complaints, physical examination findings and treatments including the natural course history without intervention and various interventional options. The patients imaging demonstrates: Xray, multiview, from 10/11/23 done at [facility] of cervical spine; MRI of cervical spine w/o done on 10/29/23 at [facility]; and CT of brain and C spine w/o from 04/11/23 done at [facility] are all reviwed once agian in office today with the patient. FINDGINDS: These demonstrate again C6-7 post surgical changes with ACDF construct with reasonable fusion noted both on CT and XR. The level however was fused neutral to positive sagittal and contributes to kyphotic deformity that is present in the patients cervical spine. There is ASD at C5-6 noted on Xray and MRI confirms this with HNP at C5-6 with spondylosis and disc collapse with central and b/l foraminal stenosis that is moderate to severe. SAC at this level is measured at 9.2 mm with cord contact and begining stages of myelomalacia noted. At C6-7 on MRI the post surgical changes are present, there is howevere are large disc osteophyte complex noted which is contacting the cord and causing severe stenosis at this level. SAC measureing 7.8 mm here due to this. B/l foraminal stenosis is moderate to severe and worse on the right side than left. This is where there are acute on chronic changes of myelomalacia which correlate with the patients synmptoms and myelopathy. 23 degress of kyphosis are measured centered around the C5-6 level which is contributed by the C5-6 collapse as well as the neutral position of the C6-7 fusion as well as some ASD noted at C7-T1 with disc height collapse and dessication. No significant stenosis at the C7-T1 level noted at this time. No acute fractures noted. No lesions noted. C0-1 and C1-2 are stable on all films. F/E films show no further instability at C0-1 or C1-2 levels. On physical exam, Mr. Monroe demonstrates: A continued ache-like, throbbing pain throughout the neck. He states his neck pain radiates down into the bilateral upper extremities, persisting around the shoulder and biceps region on the right and the entire arm on the left. He notes issues with left hand dexterity, fine motor and is dropping things more. He states his left upper extremity pain is much more severe than the right at this time. He notes his up per extremity pain is associated with numbness and tingling bilaterally. He states his symptoms continue to progress and have worsened over the last several weeks. He is currently needing a walker to get around now. He states is current symptoms worsen after all activity. He reports experiencing severe sleep disturbances related to his ongoing pain and associated symptoms. I have explained to the patient that as their condition progresses it will cause further neurological deficits and eventual paralysis. Based on the patients imaging, physical exam, and the rapid progression and disabling nature of their symptoms, at this time I recommend surgery in the form of a: Stage I: C5-6 anterior cervical discectomy and fusion and Stage II: C5-7 posterior decompression and fusion. I discussed the risk and benefits of this procedure at length with Mr. Monroe. The patient agreed to considered pursuing the procedure abovementioned. Prior to surgery, she should follow up with her PCP (Cardio, ID, IM etc) for clearance. Questions were invited and answered, and the patient wishes to proceed as outlined below. Currently, I am recommendin.Stage I: C5-6 anterior cervical discectomy and fusion and Stage II: C5-7 posterior decompression and fusion 2.Review of surgical risks and benefits as well as an educational packet on the proposed surgical procedure. Risks: All surgical procedures come with inherent risks, including those related to positioning, anesthesia, intraoperative findings, and postoperative complications. It is important to understand that surgery does not come with any guarantee of a successful outcome as complications and adverse events are always possible. The patient was given a handout in office today discussing the surgical procedure and risks associated with the intervention, both of which were d iscussed with the patient. These risks include but are not limited to the following: * Experiencing same, different or even worse symptoms in back, neck, arms, or legs compared to before surgery. Requiring further surgery or other forms of treatment presently or at some time in the future at same or other levels of the intended spine surgery. On an extreme but fortunately relatively rare basis severe complication such as blindness, stroke, heart attack, temporary and/or permanent nerve injury, paralysis, coma, or may occur, sometimes without known explanation. Surgical complications may include but are not limited to risk of infection, fluid accumulation in the surgical dissection site, including a seroma or hematoma, that requires additional surgery, wound drainage, bleeding, new numbness or weakness, vision changes/loss, spinal fluid leakage, non-healing and/or infected incision, headaches, difficulty or inability to swallow, hoarseness, hemopneumothorax, pneumothorax, impotence, retrograde ejaculation, vaginal dryness; injury to nerves, spinal cord, blood vessels, lymphatics or other vital organs (i.e., bowel injury, injury to the great vessels); heterotopic bone formation; complications related to the hardware such as screws, rods, cages including misplaced hardware, device failure, instrumentation at the wrong spine level, hardware fracture/breakage, or hardware loosening; vertebral failure of the spinal column above or below the newly placed hardware; retained surgical instrumentations or devices and the need for further surgery. * Medical risks of the planned spine surgery include but are not limited to generalized Infections to the whole body or local areas outside of the surgical site (sepsis), heart attack, bleeding, anaphylaxis, meningitis, seizure, epilepsy, hearing loss, burn berg, laceration of the head or other areas of the body, bruising, hypersensitivity of the skin, bladder over distension; allergic reaction; shoulder injury related to positioning; fat, blood and air clots to other areas of the body like heart, lungs, brain; failure of internal organs such as lungs, kidneys, liver and excessive bleeding. If blood transfusions are necessary, note that transfusions may cause intolerance reactions such as anaphylaxis or other complex reactions. Despite best efforts, the results of spine surgery might not heal in terms of bone, soft tissues such as skin, fascia, ligaments, and joints. Additionally, in order to achieve best possible results, spine surgery may be carried out beyond the initially planned levels and involve decompression, fusion including insertion of hardware at levels other than the original intended area of surgical interest change some portions of the procedure in order to ensure the best possible outcomes. With spine surgery and spinal fusion, there are different off label uses of instrumentation (devices, implants and hardware) as well as biological substances (bone morphogenic proteins, demineralized bone matrix) as well as using extra bone from allograft sources (i.e. cadaver bone) or autograft (iliac crest bone, ribs, or the spine itself). The patient has been given information about these practices and their inherent risks and benefits. [facility] is an educational center that serves as a training facility for neurosurgical and orthopedic ASSOCIATE PROFESSOR OF [employer] and Nursing students. Physician assistants are medically trained surgical providers who function in the outpatient, inpatient, and operating room setting under the direct supervision of the attending surgeon. [facility] has multiple operating rooms with single and overlapping rooms running daily. They currently function under the required guidelines as produced by the [facility] Finance Committee with regards to the overlapping rooms and will continue to comply with changes to this policy as they occur. The requirements include and are complied with as follows: (1) the critical portions of the overlapping rooms will not occur at the same time, (2) the attending physician will be physically present during the critical portions of the procedure and immediately available during the entire case, and (3) a back-up attending is designated should the primary attending not be immediately available. The patient has had a chance to review all the listed information, has been given print outs detailing this information, and has had all his/her questions answered to their satisfaction. It was my pleasure to have seen and examined Mr. Monroe. In our visit today we have had a chance to go over my understanding of our patient's current condition, the natural course history without intervention and various interventional options. Questions were invited and answered, and the patient wishes to proceed as outlined above. I have seen and examined the patient for 25 minutes and we have spent more than 50% of the time in repeat and detailed counseling about the patient's condition, its natural course history with out and as much as can be predicted with surgery and re-review of various surgical treatment options. In conclusion, Mr. Monroe requested we proceed with the above suggested fofana rgery and are willing to accept risks and limitations of the suggested surgery as nature of the disease process and our best attempts at treatment for the condition. FOLLOW UP: Post Procedure PLAN AT NEXT VISIT: X-rays (AP/LAT) cervical spine PATIENT EDUCATION: Medications Reviewed: YES In our visit today Mr. Monroe and I have had a chance to go over my understanding of the patient's current condition, the natural course history without intervention and various interventional options. Questions were invited and answered, and the patient wishes to proceed as outlined above. I will be sure to keep you updated after Mr. Monroe returns here for further follow-up. Thank you again for your referral. Please do not hesitate to contact me if you have any further questions. Signed and authenticated by: Jalen Bowie [facility] [address] [place] [address] . This message is confidential, intended only for the named recipient(s) and may contain information that is privileged or exempt from disclosure under applicable law. If you are not the intended recipient(s), you are notified that the dissemination, distribution or copying of this information is prohibited. If you received this message in error, please notify the sender then delete this message. # SIGNED BY Jalen Parks (GOO)01/23/2024 01:15PM Past Medical History Past Medical History: Chest Pain / Angina, Heart Failure, COPD, CVA/TIA, Eye Disorder, Hypertension, Musculoskeletal Disorder, Neurologic Disorder, Pneumonia Additional Past Medical History / Comment(s): Multiple sclerosis USES A CANE/walker TO AMBULATE, falls and occasional DOUBLE VISION. CHRONIC BACK NECK PAIN. Migraine headache. Crohn's disease. History of Any Multi-Drug Resistant Organisms: None Reported, MRSA Date of last positivie culture/infection: 2014 MDRO Source:: lower back Past Surgical History: Appendectomy, Back Surgery, Bowel Resection, Hernia Repair, Joint Replacement Additional Past Surgical History / Comment(s): CERVICAL FUSION. SPINAL STIMULATOR implantation, revision and removal. Spinal fusion. Right hip partial and then total replacement. Past Anesthesia/Blood Transfusion Reactions: Previous Problems w/ Anesthesia Additional Past Anesthesia/Blood Transfusion Reaction / Comment(s): STATES TAKES A LONG TIME TO WAKE UP Past Psychological History: Anxiety, Depression Additional Psychological History / Comment(s): . Smoking Status: Current every day smoker Past Alcohol Use History: None Reported Additional Past Alcohol Use History / Comment(s): Smoker Since Age 13, smoked 1ppd now down to 1/2 ppd. Past Drug Use History: Marijuana Additional Drug Use History / Comment(s): occasional marijuana smoker - Past Family History Father Family Medical History: Cancer, Diabetes Mellitus Additional Family Medical History / Comment(s): CABG-TRIPLE BYPASS, Mother Family Medical History: Cancer, CVA/TIA, Diabetes Mellitus Additional Family Medical History / Comment(s): Stroke Brother(s) Additional Family Medical History / Comment(s): cardiomyopathy Medications and Allergies Home Medications Medication Instructions Recorded Confirmed Type HYDROcodone/APAP 7.5-325MG [[place] 1 tab PO BID 04/17/20 01/29/24 History 7.5-325] Pantoprazole Sodium [Protonix] 40 mg PO DAILY 04/17/20 01/29/24 History rOPINIRole HCL [Requip] 1 mg PO HS 09/17/21 01/29/24 History Spironolactone [Aldactone] 25 mg PO DAILY #30 tab 12/26/21 01/29/24 Rx Morphine Sulfate ER [Ms Contin] 30 mg PO Q12H 03/06/22 01/29/24 History carvediloL [Coreg] 6.25 mg PO BID 04/06/22 01/29/24 History DULoxetine HCL [Cymbalta] 30 mg PO DAILY 08/17/22 01/29/24 History Furosemide [Lasix] 20 mg PO BID 08/17/22 01/29/24 History Losartan [Cozaar] 25 mg PO DAILY 08/17/22 01/29/24 History SUMAtriptan succinate [Imitrex] 100 mg PO BID PRN 04/27/23 01/29/24 History Baclofen [Lioresal] 20 mg PO BID 10/19/23 01/29/24 History Albuterol Inhaler [Ventolin Hfa 2 puff INHALATION Q4H PRN 01/29/24 01/29/24 History Inhaler] Allergies Allergy/AdvReac Type Severity Reaction Status Date / Time lisinopril Allergy Swelling Verified 01/29/24 14:35 of the mouth Physical Examination Osteopathic Statement: *. No significant issues noted on an osteopathic structural exam other than those noted in the History and Physical/Consult.
[~2024-01-31 06:45] MED LIST changes: -ACETAMINOPHEN TAB 500 MG TAB PO PRN; -GABAPENTIN 300 MG CAP PO PRN; -HYDROmorphone 0.5 MG/0.5 ML SYRINGE IVP PRN; -LIDOCAINE 1% (10MG/ML) FOR IV START INTRADERMA PRN
[2024-01-31] MEDS: LACTATED RINGERS 1,000 ML IV SCH (07:30)
[2024-01-31] MEDS: IV FLUID CONTINUATION 1,000 ML IV ONE ×2 (07:30→09:03)
[2024-01-31] MEDS: ACETAMINOPHEN TAB 500 MG TAB PO PRN (07:46)
[2024-01-31] MEDS: GABAPENTIN 300 MG CAP PO PRN (07:46)
[2024-01-31] MEDS: DEXAMETHASONE SOD PHOSPHATE 4 MG/ML 1 ML VIAL IV ONE (07:48)
[2024-01-31] MEDS: ONDANSETRON 4 MG/2 ML VIAL IVP ONE (07:48)
[2024-01-31] MEDS: MIDAZOLAM 2 MG/2 ML VIAL IV ONE (07:56)
--- NOTE | 2024-01-31 08:15 | P.ANPRN ---
Procedure Note - Anesthesia - Invasive Line Left Arterial Line Time Out Performed: Yes ([id number]) Date of Procedure: 01/31/24 Time of Procedure: 07:57 Location of Patient: PreOp Preparation: Sterile Prep, Sterile Dressing Arterial Line Location: Radial Ultrasound Used: Yes Purpose - Visualization and Identification of Vasculature: Yes Image Stored and Saved: Yes Narrative: Invasive line placement per sterile protocol utilized.20G Arrow -2inch wit one attempt , Biopatch applied
[2024-01-31] MEDS: IPRATROPIUM-ALBUTEROL 3 ML NEB INHALATION STA (08:28)
[2024-01-31] MEDS ORDERED: MIDAZOLAM 2 MG/2 ML VIAL ONE (09:04)
[2024-01-31] MEDS ORDERED: TRANEXAMIC 1,000 MG/100ML-NACL PREMIX BAG ONE (09:04)
[2024-01-31] MEDS ORDERED: WATER FOR INJECTION, STERILE 10 ML VIAL IV ONE (09:04)
[2024-01-31] MEDS ORDERED: ePHEDrine 50 MG/ML 1 ML VIAL ONE (09:04)
[2024-01-31] MEDS ORDERED: LIDOCAINE 1% INJ 10MG/ML (20 ML MDV) ONE (09:04)
[2024-01-31] MEDS ORDERED: KETAMINE HCL IN 0.9 % NACL 50 MG/5 ML SYRINGE ONE (09:04)
[2024-01-31] MEDS ORDERED: PROPOFOL 10 MG/ML 20 ML VIAL IV ONE (09:04)
[2024-01-31] MEDS ORDERED: PHENYLEPHRINE 10 MG/ML VIAL ONE (09:04)
[2024-01-31] MEDS ORDERED: ROCURONIUM 10 MG/ML (5 ML VIAL) IV ONE (09:04)
[2024-01-31] MEDS ORDERED: NEOSTIGMINE 1 MG/ML 10 ML VIAL ONE (09:04)
[2024-01-31] MEDS ORDERED: GLYCOPYRROLATE 0.2 MG/ML 2 ML VIAL ONE (09:04)
[2024-01-31] MEDS ORDERED: SUCCINYLCHOLINE CHLORIDE 200 MG/10 ML VIAL IV ONE (09:04)
[2024-01-31] MEDS ORDERED: fentaNYL (PF) 50 MCG/ML 2 ML AMP ONE (09:04)
[2024-01-31] MEDS ORDERED: ONDANSETRON 4 MG/2 ML VIAL ONE (09:04)
[2024-01-31] MEDS: THROMBIN (BOVINE) 5,000 UNIT VIAL MISCELLANE ONE (09:50)
[2024-01-31] MEDS: ceFAZolin 3,000 MG in SODIUM CHLORIDE 0.9% IRRIGATIO 3,000 ML IRRIGATION ONE (10:08)
[2024-01-31] MEDS: GENTAMICIN 80 MG in SODIUM CHLORIDE 0.9% IRRIGATIO 3,000 ML IRRIGATION ONE (10:08)
[2024-01-31] MEDS: LACTATED RINGERS 1,000 ML IV ONE (11:35)
[2024-01-31] MEDS: VANCOMYCIN 1,000 MG VIAL MISCELLANE ONE (13:01)
[2024-01-31] MEDS ORDERED: MAGNESIUM HYDROXIDE 2,400 MG/30 ML CUP PO PRN (13:05)
[2024-01-31] MEDS ORDERED: ONDANSETRON 4 MG/2 ML VIAL IVP PRN (13:05)
[2024-01-31] MEDS ORDERED: HYDROcodone/APAP 5-325MG 1 EACH TAB PO PRN (13:05)
[2024-01-31] MEDS ORDERED: HYDROmorphone 0.5 MG/0.5 ML SYRINGE IVP PRN (13:05)
[2024-01-31] MEDS ORDERED: HYDROcodone/APAP 7.5-325MG 1 EACH TAB PO PRN (13:11)
--- NOTE | 2024-01-31 13:51 | FL ---
EXAMINATION TYPE: FL guidance operating room, XR cervical spine limited Intraoperative/procedural flu oroscopic services were provided. Total fluoroscopy time is 37 seconds with a total of 9 submitted im ages to PACS. Please see the operative/procedural note for further details. DAP: 0.6777 Gycm2
[2024-01-31] MEDS: HYDROmorphone 0.5 MG/0.5 ML SYRINGE IVP PRN (14:19)
[2024-01-31] MEDS: CYCLOBENZAPRINE 5 MG TAB PO PRN (15:55)
[2024-01-31] MEDS ORDERED: SUMAtriptan succinate 50 MG TAB PO PRN (16:56)
[2024-01-31] MEDS ORDERED: ALBUTEROL HFA INHALER INHALATION PRN (16:56)
[2024-01-31] MEDS: KETOROLAC 15 MG/ML 1 ML VIAL IVP SCH (17:09)
--- NOTE | 2024-01-31 17:21 | CT ---
EXAMINATION TYPE: CT cervical spine wo con CT DLP: 301.1 mGycm, Automated exposure control for dose reduction was used. DATE OF EXAM: 01/31/2024 4:59 PM COMPARISON: . CLINICAL INDICATION:Male, 58 years old with history of s/p C5-C6 ACDF, C5-C7 posterior decomp and fus ion; PHH, post-op TECHNIQUE: Axial CT images from the skull base to the inferior aspect of T2 we obtained without intra venous contrast. Coronal and sagittal reformatted images were also reviewed. Contrast used: mL of , (if blank None) Oral contrast used: (if blank None) FINDINGS: Fracture: None. Osseous structures: C5, C6 and C7 shows screws and vertical stabilization bars as well as interverteb ral disc prosthetic material. No acute fracture or acute osseous abnormality. Vertebral alignment: Alignment within normal limits. Spinal canal/Neural Foramina: No evidence of significant spinal canal narrowing. No evidence for sign ificant neural foraminal stenosis. Neck soft tissues: Prevertebral soft tissues are within normal limits. Seroma and air is present in the posterior cervical spine soft tissues. There is a surgical drain leading to the seroma. Other: The airway is patent. The lung apices are clear. IMPRESSION: 1. C5-C7 levels show posterior decompression and fusion. Hardware is solid and well-positioned. Serom a and air are seen in the soft tissues of the posterior neck.
[2024-01-31] MEDS: HYDROmorphone 1 MG/ML 1 ML SYRINGE IVP PRN (18:11)
[2024-01-31] MEDS: MORPHINE SULFATE ER 30 MG TABLET PO SCH (20:32)
[2024-01-31] MEDS: FUROSEMIDE 20 MG TAB PO SCH (20:32)
[2024-01-31] MEDS: carvediloL 6.25 MG TAB PO SCH (20:32)
[2024-01-31] MEDS ORDERED: NON FORMULARY DRUG (Baclofen [Lioresal] 20 MG Tablet) PO SCH (21:00)
[2024-01-31] MEDS: DULoxetine HCL 30 MG CAPSULE.DR PO SCH (21:23)
[2024-01-31] MEDS: HYDROcodone/APAP 10-325MG 1 EACH TAB PO PRN (23:26)
[2024-02-01 06:13] LABS: Basophils % (A) 0 %; Eosinophils # (A) 0.1 k/uL (0-0.7); Eosinophils % (A) 0 %; HCT 42.3 % (39.0-53.0); HGB 13.6 gm/dL (13.0-17.5); Hypochromasia Slight; Lymphocytes # (A) 1.7 k/uL (1.0-4.8); Lymphocytes % (A) 12 %; MCH 30.9 pg (25.0-35.0); MCHC 32.2 g/dL (31.0-37.0); MCV 95.9 fL (80.0-100.0); Mean Platelet Volume 7.8; Monocytes # (A) 1.1 k/uL (0-1.0); Monocytes % (A) 8 %; Neutrophils # (A) 11.1 k/uL (1.3-7.7); Neutrophils % (A) 79 %; Platelet Count 274 k/uL (150-450); RBC 4.41 m/uL (4.30-5.90); RDW 12.5 % (11.5-15.5); WBC 14.1 k/uL (3.8-10.6)
[2024-02-01 06:30] LABS: African American GFR (CKD) >90 (>60 ml/min/1.73 sqM); Anion Gap 3 mmol/L; Blood Urea Nitrogen 9 mg/dL (9-20); Calcium 9.2 mg/dL (8.4-10.2); Carbon Dioxide 27 mmol/L (22-30); Chloride 105 mmol/L (98-107); Glucose 93 mg/dL (74-99); Non-African American GFR(CKD) >90 (>60 ml/min/1.73 sqM); Potassium 4.4 mmol/L (3.5-5.1); Sodium 135 mmol/L (137-145)
--- NOTE | 2024-02-01 06:59 | P.PN ---
Subjective Progress Note Date: 02/01/24 Principal diagnosis: 1. Cervical myelopathy 2. C5-C6 ASD spondylosis with severe stenosis 3. Status post C6-C7 ACDF, large disc osteophyte complex with severe central stenosis 4. bilateral upper extremity paresthesias and radiculopathy 5. Bilateral upper and lower extremity weakness 6. Gait disturbance 7. Neck pain Patient seen and examined this morning. Patient is resting comfortably in bed. Patient reports they had to reinsert Maravilla catheter due to being discontinued in PACU. Patient had been straight cath through the night with new Maravilla catheter placed this morning. He does report that his pain is managed on current regimen. He continues to have upper extremity radiculopathy and aching pain across the bilateral shoulders. Educated patient on the use of ice therapy to alleviate pain and swelling. Surgical incisions to the anterior and posterior cervical spine, dressings are clean dry and intact with drains present. Hard cervical collar is intact. Patient does report he has not been up since procedure. Informed patient that physical therapy will begin to work with him today. Encourage patient to be up in chair for all meals and use of incentive spirometer 10 times per hour while awake. Patient does report that his plan is for return to home at discharge. Objective - Vital Signs Vital signs: Vital Signs Temp 97.4 F L 01/31/24 13:52 Pulse 55 L 02/01/24 01:57 Resp 16 02/01/24 01:57 BP 118/69 02/01/24 01:57 Pulse Ox 98 02/01/24 01:57 FiO2 Intake & Output 01/31/24 01/31/24 02/01/24 06:59 18:59 06:59 Intake Total 2252 340 Output Total 650 1255 Balance 1602 -915 Weight 79.7 kg Intake: IV 2051 Intake, IV Titration 340 Amount Lactated Ringers 1,000 ml 240 @ 0 mls/hr IV .[facility] Rx#:[id number] ceFAZolin 2 gm In Sodium 100 Chloride 0.9% 50 ml @ 100 mls/hr IVPB Q8HR [facility] Rx# :[id number] Oral 200 Output: Drainage 5 Anterior Neck 5 Posterior Neck 0 Urine 450 1250 Uretheral (Maravilla) 1250 Estimated Blood Loss 200 - Exam Physical Examination General: The patient is awake and alert, in no acute distress Skin: Skin is warm and dry with no obvious rashes or lesions. Surgical incision to the anterior cervical spine, dressing is clean dry and intact with FATOU drain present with 5 mL output documented overnight. Surgical incision to the posterior cervical spine, dressing is clean dry and intact with Hemovac drain present with 0 mL output overnight. Eye: Pupils are equal, round and reactive to light, extra-ocular movements are intact; there is normal conjunctiva bilaterally. Neck: The neck is supple, there is mild to moderate tenderness around incision sites. ROM is limited due to surgical procedure and hard cervical collar in place. Cardiovascular: There is a regular rate and rhythm. No murmur, rub or gallop is appreciated. Respiratory: Respirations are non-labored, breath sounds are equal. Gastrointestinal: Soft, non-distended, non-tender abdomen. Back: There is no tenderness to palpation in the midline, paralumbar, parathoracic or buttocks region. There is no obvious deformity . Musculoskeletal: ROM limited secondary to pain and stiffness from surgical procedure. Right: Shoulder abduction 5/5, elbow flexors 5/5, wrist dorsiflexors 4/5. finger abductor 4/5, workforce manager 4/5, hip flexor 5/5, knee flexor 5/5, ankle dorsiflexor 5/5, ankle plantarflexion 5/5 and extensor hallucis 5/5. Left: Shoulder abduction 5/5, elbow flexors 5/5, wrist dorsiflexors 4/5. finger abductor 4/5, workforce manager 4/5, hip flexor 4-/5, knee flexor 4/5, ankle dorsiflexor 5/5, ankle plantarflexion 5/5 and extensor hallucis 5/5. Neurological: CN 2-12 intact. There are no obvious motor or sensory deficits. Movement and coordination equal and intact. Sensory exam to light touch intact C5-T1 and intact from L2-S1. Reflexes 2/4 in bilateral upper and lower extremiti es. Negative Hoffmans, babinski, and clonus signs. Psychiatric: Cooperative, appropriate mood & affect, normal judgment. - Labs CBC & Chem 7: 02/01/24 05:34 02/01/24 05:34 Labs: Abnormal Lab Results - Last 24 Hours (Table) 02/01/24 02/01/24 Range/Units 05:34 05:34 WBC 14.1 H (3.8-10.6) k/uL Neutrophils # 11.1 H (1.3-7.7) k/uL Monocytes # 1.1 H (0-1.0) k/uL Sodium 135 L (137-145) mmol/L Creatinine 0.60 L (0.66-1.25) mg/dL Assessment and Plan Assessment: Postop day 1: Stage I C5-C6 ACDF, Stage II C5-C7 PCDF Plan: -Appreciate [employer] consultant and team management. -Activity: Ambulate QID, OOB all meals, up and about, limit lifting bending twisting to less than 5 lbs. Use walker or cane if needed for stability. -Daily PT/OT, increase ambulation strength and balance. -Hard cervical collar on at all times, may remove for showers -Pain control: Adequate at this time -Meds: reviewed -GI ppx: senna, Miralax -DC maravilla when up and about, bedside commode if needed -DVT PPX: OK to restart Heparin tonight -Hygiene: Shower today. Maintain dressing clean and dry. -Drains: Maintain for now. Continue to monitor and record output q shift. -Encourage IS 10x/hr -Dispo: Clinically pending *I reviewed and discussed this case with my attending Dr. Parks, whom has reviewed this chart and films and is in agreement with assessment and plan of care as outlined above. I have personally seen and examined the patient, performed the documentation and the assessment and plan as written. Number of minutes spent on the visit: 20m.
[2024-02-01] MEDS: PANTOPRAZOLE 40 MG TABLET PO SCH (08:23)
[2024-02-01] MEDS: SPIRONOLACTONE 25 MG TAB PO SCH (08:23)
[2024-02-01] MEDS: LOSARTAN 25 MG TAB PO SCH (08:23)
[2024-02-01] MEDS: SENNOSIDES-DOCUSATE SODIUM 1 EACH TAB PO SCH (08:23)
[2024-02-01] MEDS: NICOTINE 14MG/24HR PATCH TRANSDERM SCH (10:39)
--- NOTE | 2024-02-01 16:24 | P.CONS ---
History of Present Illness - Reason for Consult Consult date: 02/01/24 Medical management Requesting physician: Jalen Parks - History of Present Illness This is a 58-year-old gentleman past medical history significant for ongoing nicotine dependence, occasional marijuana use, multi valvular disease , nonischemic cardiomyopathy , multiple sclerosis, chronic back/neck pain Crohn's, anemia depression, COPD, hypertension and multiple other medical issues, status post elective C6-C7 ACDF, large disc osteophyte complex with severe central stenosis in a patient with cervical myelopathy, C5-C6 ASD spondylosis with severe stenosis, gait dysfunction secondary to bilateral upper and lower extremity weakness, bilateral upper extremity paresthesias and radiculopathy. Tolerated procedure well. Complains of pain, specifically bilateral shoulder pain. Passing flatus. Denies chest pain, palpitations or shortness of breath. Maintaining O2 sats in the high 90s on 2 L nasal cannula. PT pending. Review of Systems ROS Statement: Those systems with pertinent positive or pertinent negative responses have been documented in the HPI. ROS Other: All systems not noted in ROS Statement are negative. Past Medical History Past Medical History: Chest Pain / Angina, Heart Failure, COPD, CVA/TIA, Eye Disorder, Hypertension, Musculoskeletal Disorder, Neurologic Disorder, Pneumonia Additional Past Medical History / Comment(s): Multiple sclerosis USES A CANE/walker TO AMBULATE, falls and occasional DOUBLE VISION. CHRONIC BACK NECK PAIN. Migraine headache. Crohn's disease. History of Any Multi-Drug Resistant Organisms: None Reported, MRSA Year Discovered:: 2014 MDRO Source:: lower back Past Surgical History: Appendectomy, Back Surgery, Bowel Resection, Hernia Repair, Joint Replacement Additional Past Surgical History / Comment(s): CERVICAL FUSION. SPINAL STIMULATOR implantation, revision and removal. Spinal fusion. Right hip partial and then total replacement. Past Anesthesia/Blood Transfusion Reactions: Previous Problems w/ Anesthesia Additional Past Anesthesia/Blood Transfusion Reaction / Comm: STATES TAKES A LONG TIME TO WAKE UP Past Psychological History: Anxiety, Depression Additional Psychological History / Comment(s): . Smoking Status: Current every day smoker Past Alcohol Use History: None Reported Additional Past Alcohol Use History / Comment(s): Smoker Since Age 13, smoked 1ppd now down to 1/2 ppd. Past Drug Use History: Marijuana Additional Drug Use History / Comment(s): occasional marijuana smoker - Past Family History Father Family Medical History: Cancer, Diabetes Mellitus Additional Family Medical History / Comment(s): CABG-TRIPLE BYPASS, Mother Family Medical History: Cancer, CVA/TIA, Diabetes Mellitus Additional Family Medical History / Comment(s): Stroke Brother(s) Additional Family Medical History / Comment(s): cardiomyopathy Medications and Allergies Home Medications Medication Instructions Recorded Confirmed Type HYDROcodone/APAP 7.5-325MG [[place] 1 tab PO BID 04/17/20 01/31/24 History 7.5-325] Pantoprazole Sodium [Protonix] 40 mg PO DAILY 04/17/20 01/31/24 History rOPINIRole HCL [Requip] 1 mg PO HS 09/17/21 01/31/24 History Spironolactone [Aldactone] 25 mg PO DAILY #30 tab 12/26/21 01/31/24 Rx Morphine Sulfate ER [Ms Contin] 30 mg PO Q12H 03/06/22 01/31/24 History carvediloL [Coreg] 6.25 mg PO BID 04/06/22 01/31/24 History DULoxetine HCL [Cymbalta] 30 mg PO HS 08/17/22 01/31/24 History Furosemide [Lasix] 20 mg PO BID 08/17/22 01/31/24 History Losartan [Cozaar] 25 mg PO DAILY 08/17/22 01/31/24 History SUMAtriptan succinate [Imitrex] 100 mg PO BID PRN 04/27/23 01/31/24 History Baclofen [Lioresal] 20 mg PO BID 10/19/23 01/31/24 History Albuterol Inhaler [Ventolin Hfa 2 puff INHALATION Q4H PRN 01/29/24 01/31/24 History Inhaler] Allergies Allergy/AdvReac Type Severity Reaction Status Date / Time lisinopril Allergy Swelling Verified 01/31/24 07:09 of the mouth Physical Exam Vitals: Vital Signs Temp Pulse Pulse Resp BP BP Pulse Ox 02/01/24 07:11 67 18 93/59 97 02/01/24 01:57 55 L 16 118/69 98 01/31/24 21:17 61 127/82 97 01/31/24 21:02 62 118/74 95 01/31/24 20:47 81 130/54 95 01/31/24 20:32 64 120/75 96 01/31/24 20:17 60 119/75 95 01/31/24 20:02 64 118/74 93 L 01/31/24 19:47 70 107/68 93 L 01/31/24 15:20 73 16 116/60 98 01/31/24 15:05 69 16 112/59 99 01/31/24 14:50 74 14 116/63 99 01/31/24 14:35 78 14 114/56 99 01/31/24 14:20 80 14 91/55 98 01/31/24 14:05 72 14 94/50 100 01/31/24 13:52 97.4 F L 72 14 109/54 100 Intake and Output 01/31/24 02/01/24 02/01/24 22:59 06:59 14:59 Intake Total 200 340 Output Total 1255 Balance 200 -915 Intake: Intake, IV Titration 340 Amount Lactated Ringers 1,000 ml 240 @ 0 mls/hr IV [facility] Rx#:[id number] ceFAZolin 2 gm In Sodium 100 Chloride 0.9% 50 ml @ 100 mls/hr IVPB Q8HR [facility] Rx# :[id number] Oral 200 Output: Drainage 5 Anterior Neck 5 Posterior Neck 0 Urine 1250 Uretheral ([place]) 1250 Other: Weight 79.7 kg PHYSICAL EXAM: VITAL SIGNS: As above GENERAL: Alert and oriented x 3, sitting up in bed, no acute distress HEENT: Normocephalic, atraumatic Conjunctivae normal. eyes normal. NECK: Supple, wearing c-collar, FATOU with minimal serosanguineous drainage and Hemovac drain present. CARDIOVASCULAR: S1, S2 regular.systolic murmur. RESPIRATION: Unlabored, equal air entry, breath sounds diminished in the bases. ABDOMEN: Soft, nondistended, nontender, no guarding, no rigidity. no masses palpable. No ascites, No hepatosplenomegaly.Bowel sounds heard. LEGS: No edema. no swelling NERVOUS SYSTEM: Cranial N 2-12 grossly normal. No focal deficits. Strength and sensation grossly intact. Skin: Warm and dry, no rash , Results CBC & Chem 7: 02/01/24 05:34 02/01/24 05:34 Labs: Abnormal Lab Results - Last 24 Hours (Table) 02/01/24 02/01/24 Range/Units 05:34 05:34 WBC 14.1 H (3.8-10.6) k/uL Neutrophils # 11.1 H (1.3-7.7) k/uL Monocytes # 1.1 H (0-1.0) k/uL Sodium 135 L (137-145) mmol/L Creatinine 0.60 L (0.66-1.25) mg/dL Assessment and Plan Assessment: Cervical myelopathy, C5-C6 ASD spondylosis with severe stenosis, Status post C6- C7 ACDF, large disc osteophyte complex with severe central stenosis Gait dysfunction secondary to bilateral upper and lower extremity weakness, Bilateral upper extremity paresthesias, radiculopathy History of Crohn's disease COPD, stable History of Covid 19 infection in March 2022 History of migraines Chronic pain syndrome Moderate mitral regurgitation. History of nonischemic cardiomyopathy, ejection fraction 40-45% Normal coronary arteries per cardiac catheterization 01/13/2022 Plan: Continue on current medication regimen ,monitoring and symptomatic treatme nt. Pain management and DVT prophylaxis as per orthopedic spine.. Aggressive pulmonary toileting with incentive spirometer reinforced. PT. Smoking cessation reinforced, nicotine patch added to med regimen. Home meds reviewed and resumed accordingly. Thank you for the consult. The impression and plan of care has been dictated as directed. : I performed a history and examination of this patient, discussed the same with the dictator. I agree with the dictator's note ,documented as a scribe. Any additional findings or plans will be noted.
[2024-02-01] MEDS: HEPARIN SODIUM,PORCINE 5,000 UNIT/ML 1 ML VIAL SQ SCH (20:44)
[2024-02-02] MEDS ORDERED: HYDROcodone/APAP 10-325MG 1 EACH TAB PO PRN (07:23)
--- NOTE | 2024-02-02 08:00 | P.OP ---
Date of Procedure: 01/31/24 Preoperative Diagnosis: Current Active Problems Neck pain (Acute) Upper extremity weakness (Acute) Degenerative disc disease, cervical (Acute) Cervical spondylosis with myelopathy (Acute) Cervical kyphosis (Acute) Cervical myelopathy with cervical radiculopathy (Acute) Postoperative Diagnosis: Current Active Problems Neck pain (Acute) Upper extremity weakness (Acute) Degenerative disc disease, cervical (Acute) Cervical spondylosis with myelopathy (Acute) Cervical kyphosis (Acute) Cervical myelopathy with cervical radiculopathy (Acute) Procedure(s) Performed: STAGE I: * C5-6 ANTERIOR CERVICAL ARTHRODESIS * C5-6 ANTERIOR INSTRUMENTATION * INSERTION OF BIOMECHANICAL DEVICE, C5-6, CAGE STAGE II: * C5-7 POSTEROLATERAL INSTRUMENTED FUSION * C5-7 SEGMENTAL INSTRUMENTATION * C5-7 BILATERAL LAMINECTOMY, MEDIAL FACETECOMY AND FORAMINOTOMY USE OF IONM USE OF IO MICROSCOPE Implants: -4 WEB TRUSS CAGE/PLATE -16MM SCREW FIXATION -MAGNATOS, BIO4 -TJ NUNAVUT POSTERIOR CERVICAL RODS, SCREWS -MAGNATOS, AUTOGRAFT Anesthesia: SRINIVASA Surgeon: Jalen Parks Aircraft Structural Repairer #1: Viridiana Hoffmann (was present and assisted wiht all aspects of the case from position to start of closure) Estimated Blood Loss (ml): 250 IV fluids (ml): 1,600 Urine output (ml): 450 Pathology: none sent Condition: stable Disposition: PACU Indications for Procedure: Mr. Monroe is presenting for evaluation of neck and bilateral upper extremity pain, bilateral upper extremity numbness and tingling, weakness in UE and LE, progressive gait disturbance as well as fine motor disruption that is progressively getting worse. It was my pleasure to have seen and examined Mr. Monroe. In our visit today we have had a chance to go over subjective complaints, physical examination findings and treatments including the natural course history without intervention and various interventional options. The patients imaging demonstrates: Xray, multiview, from 10/11/23 done at [facility] of cervical spine; MRI of cervical spine w/o done on 10/29/23 at [facility]; and CT of brain and C spine w/o from 04/11/23 done at [facility] are all reviwed once agian in office today with the patient. FINDGINDS: These demonstrate again C6-7 post surgical changes with ACDF construct with reasonable fusion noted both on CT and XR. The level however was fused neutral to positive sagittal and contributes to kyphotic deformity that is present in the patients cervical spine. There is ASD at C5-6 noted on Xray and MRI confirms this with HNP at C5-6 with spondylosis and disc collapse with central and b/l foraminal stenosis that is moderate to severe. SAC at this level is measured at 9.2 mm with cord contact and begining stages of m yelomalacia noted. At C6-7 on MRI the post surgical changes are present, there is howevere are large disc osteophyte complex noted which is contacting the cord and causing severe stenosis at this level. SAC measureing 7.8 mm here due to this. B/l foraminal stenosis is moderate to severe and worse on the right side than left. This is where there are acute on chronic changes of myelomalacia which correlate with the patients synmptoms and myelopathy. 23 degress of kyphosis are measured centered around the C5-6 level which is contributed by the C5-6 collapse as well as the neutral position of the C6-7 fusion as well as some ASD noted at C7-T1 with disc height collapse and dessication. No significant stenosis at the C7-T1 level noted at this time. No acute fractures noted. No lesions noted. C0-1 and C1-2 are stable on all films. F/E films show no further instability at C0-1 or C1-2 levels. On physical exam, Mr. Monroe demonstrates: A continued ache-like, throbbing p ain throughout the neck. He states his neck pain radiates down into the bilateral upper extremities, persisting around the shoulder and biceps region on the right and the entire arm on the left. He notes issues with left hand dexterity, fine motor and is dropping things more. He states his left upper extremity pain is much more severe than the right at this time. He notes his upper extremity pain is associated with numbness and tingling bilaterally. He states his symptoms continue to progress and have worsened over the last several weeks. He is currently needing a walker to get around now. He states is current symptoms worsen after all activity. He reports experiencing severe sleep disturbances related to his ongoing pain and associated symptoms. I have explained to the patient that as their condition progresses it will cause further neurological deficits and eventual paralysis. Based on the patients imaging, physical exam, and the rapid progression and disabling nature of their symptoms, at this time I recommend surgery in the form of a: Stage I: C5-6 anterior cervical discectomy and fusion and Stage II: C5-7 posterior decompression and fusion. I discussed the risk and benefits of this procedure at length with Mr. Monroe. The patient agreed to considered pursuing the procedure abovementioned. Prior to surgery, she should follow up with her PCP (Cardio, ID, IM etc) for clearance. Questions were invited and answered, and the patient wishes to proceed as outlined below. Currently, I am recommendin.Stage I: C5-6 anterior cervical discectomy and fusion and Stage II: C5-7 posterior decompression and fusion Description of Procedure: STAGE I: C5-6 ACDF REVISION, SA The patient was seen and examined in the preoperative area. All preoperative protocols were followed. Informed consent was obtained, risks and benefits of the procedure were discussed at length. Risks including bleeding infection damage to the surrounding tissue and risk of reoperation were discussed with the patient. Risk of anesthesia up to and including was discussed with the patient. These are outlined in the risk review. They were willing to accept these risks and all the risks of surgery. The patient was given a weight-based dose of antibiotics in the form of 2 g Ancef. The patient was seen and evaluated by the anesthesia team who deemed them fit for surgery. The site was marked, the patient was willing to proceed with the procedure. The patient was transferred to the operative suite by the Department of anesthesia. They were then drifted off to sleep by the department anesthesia and GETA was performed. The patient tolerated this well. Weston catheter was placed by nursing staff, a-traumatically. Once confirmation of lines and ventilation the patient was transferred to a Supine Brian table very carefully. All bony prominences including wrists, elbows, axilla, chest, hips, and thighs, and feet were padded very well. Special attention was paid to the genitalia, and these were padded accordingly. SCDs were placed on bilateral lower extremities and were connected. Arms were well padded and placed at their side thumbs up. Once in position, again we confirmed good ventilation capabilities and that lines were running appropriately. The patients Cervical spine was then exposed. 1010s were placed outlining the incision site. Standard alcohol was used to clean the incision site and allowed to dry. C-arm was used to bio-gilles the patient and confirm level for incision which was marked with a skin marker. Operative briefing was performed with all teams and everyone in agreement to proceed. The patient was then prepped and draped in a normal sterile fashion. Timeout was then performed, and all parties agreed with the procedure to be performed. Transverse skin incision was then made on the right side of the patient's neck 3 cm and dissection taken down to the platysma which was split transversely. Sub platysma flap was made, and interval identified between SCM and medial structures. Omohyoid was visualized and protected. Blunt dissection taken down to the anterior cervical fascia which was identified. Previous plates and screws were identified and were intact. Large osteophyte removed Blunt probe was then placed and lateral image taken which confirmed levels for operation. These levels were then marked with a bovi. Subperiosteal dissection of the longissimus muscles were then done over these levels identifying uncovertebral joints bilaterally. Retractor was then placed deep to these muscles and held in place with a bed arm. [place] pins were placed into C5 and C6 and gentle distraction taken out over the levels. Brittany rongeur used to remove disc material. Operating microscope brought in for visualization. Complete discectomy performed at this level with curette, rongure and pituitary. High speed aubrie used to remove osteophytes anteriorly and posteriorly until PLL was identified. 6-0 up curette then used to identify the canal and resect the PLL. 2-0 and 3-0 Kerrison used then to remove PLL and disc herniation and performed b/l foraminotomies. Once good decompression was accomplished, meticulous hemostasis was performed. Sizers were then placed under lateral fluoroscopy until the desired height and lordosis. Cage was then selected, packed with autograft and allograft and placed under lateral imaging. Once in good position it was tested and stable. Motors run before and after cage placement were stable. The wound was irrigated, and autograft placed lateral to the cage anteriorly for fusion. [place] pin was then removed from C5 and C6 and bone wax placed in their void. Screws were then drilled and measured and placed into C6 and C5 respectively. Good purchase was obtained. Locking mechanisms set. Final AP and lateral images taken confirmed good placement of hardware and good reduction and episcopalian of height. The wound was then irrigated copiously with NSS. Surgicel placed deep in the wound. Layered closure then performed with 3-0 Vicryl in the platysma and subQ tissue. 4-0 Strata fix in the subcuticular tissue. The wound was then cleaned, and dried and skin glue placed. Once glue dried telfa, 4x4 and tegaderm along with drain sponge placed. The patient was then transferred back to their hospital bed a-traumatically. The drain continued to hold suction. They were placed in a Hard collar. They were then awakened by the department of anesthesia having tolerated the procedure well without complications. SAME DAY STAGE II: C5-7 PCDF, C7 Pedicle screws The patient was transferred back to their hospital bed for bed exchange. [place] head clamp was placed optimally on the patient. Once lines confirmed as well as stability, the patient was carefully and atraumatically transferred to the prone [facility] spine top table and the head was secured in an optimal position on the Champion clement. All bony prominences including wrists, elbows, axilla, chest, hips, and thighs, and feet were padded very well. Special attention was paid to the genitalia, and these were padded accordingly. SCDs were placed on bilateral lower extremities and were connected. Arms were well padded and placed at their thumbs down. Once in position, again we confirmed good ventilation capabilities and that lines were running appropriately. The patients Cervical spine was then exposed. 1010s were placed outlining the incision site. Standard alcohol was used to clean the incision site and allowed to dry. C-arm was used to bio-gilles the patient and confirm level for incision which was marked with a skin marker. Operative briefing was performed with all teams and everyone in agreement to proceed. The patient was then prepped and draped in a normal sterile fashion. Timeout was then performed, and all parties agreed with the procedure to be performed. Midline skin incision was then made over the previously bio-marked area and dissection taken down to the SP of C7 and up to C4 for exposure. Subperiosteal dissection was then taken down over the facets joints and lateral masses of C5- 7. Lateral X-ray confirmed the levels of operation. The wound was then irrigated. We then proceeded to place screws. First in the lateral masses of C5-6 bilaterally. High speed aubrie was used to decorticate IAP of C5 and C6 and the starting point achieved with high speed aubrie. Drill was then set to 12mm and drilled in an up and out trajectory using lateral imaging as guidance. Ball tip feeler was then used to confirm a good bony corridor. Screws were then placed optimally using lateral x-ray. Once this was accomplished they were checked on AP and were in good position. We then proceeded to C7 pedicle screws. Provisional laminotomy was made to allow for a penfield 4 to be placed at the medial border of the C7 pedicle for a guide and trajectory. We then used AP and Lateral fluoroscopy to first make a starting point with aubrie and then pass a pedicle finder. Once this was in good position on AP and Lat, a ball tip feeler was used to confirm within the 4 meidna of the pedicle. We then tapped the starting position of each. Screw length was then measured and placed. Once in position, b/l, they were checked on AP and Lateral and were in optimal position. IONM remained stable through this process with no EMG trains. We then selected and sized a bebeto for the area and placed this bebeto in screws. Set screws placed and reduced and finally tightened. We then proceeded to decompression. Bilateral laminectomy, medial facetectomy and foraminotomies were performed using high speed aubrie, kerrison rongeurs, curettes of C5-C7. Due to the previous unknown surgery at C6 region where the SP had been removed, it caused immense scarring of the lamina to the dura at this section increasing the techni cality of the case in removing this without injury to the dura or nerves. No EMG or IONM changes during the decompression. MAPs maintained at 80 during. Once lamina was removed and decompression was complete, motors were run and they were stable to baseline. Meticulous hemostasis achieved. The wound was copiously irrigated with 3L Ancef irrigant, 3L Gentamicin irrigant and 3L NSS. Surgicel was placed over the dura. The PL gutters and decorticated Facets/lateral masses were packed with allograft, autograft and Magnatos. A deep drain was placed. 2g powdered Vanco placed in the wound and we proceeded to closure. #1 PDS was placed in the deep muscle and deep fascial layers. 0 Vicryl placed in the deep subq tissues. 2-0 Vicryl placed in the superficial subq tissues and yvette placed in the skin. Wound edges approximated very well. The wound was then cleaned and dressed steril with adaptic, 4x4, abd and Medipore tape. Drain was sewn to the skin and drain sponge placed with tape. The patient was then transferred back to their hospital bed a-traumatically. The drain continued to hold suction. They were placed back in a Hard collar. Champion removed and pin holes were clean and dry. They were then awakened by the department of anesthesia having tolerated the procedure well without complications.
[2024-02-02] MEDS: CYCLOBENZAPRINE 5 MG TAB PO SCH (08:12)
[2024-02-02] MEDS: oxyCODONE-APAP 7.5-325MG 1 EACH TAB PO PRN (09:45)
[2024-02-02] MEDS ORDERED: HYDROmorphone 0.5 MG/0.5 ML SYRINGE IVP PRN (10:08)
--- NOTE | 2024-02-02 10:31 | P.PN ---
Subjective Progress Note Date: 02/02/24 Principal diagnosis: 1. Cervical myelopathy 2. C5-C6 ASD spondylosis with severe stenosis 3. Status post C6-C7 ACDF, large disc osteophyte complex with severe central stenosis 4. bilateral upper extremity paresthesias and radiculopathy 5. Bilateral upper and lower extremity weakness 6. Gait disturbance 7. Neck pain Patient seen and examined this morning. Patient is resting in bed. He reports his pain is not managed on the current regimen. Medications have been adjusted. He continues to have upper extremity radiculopathy and aching pain across the bilateral shoulders. Educated patient on the use of ice therapy to alleviate pain and swelling. Surgical incisions to the anterior cervical spine, edges are approximated with glue intact. New dressing applied. Yesterday evening RN notified that they found FATOU drain dislodged from anterior neck and laying in the bed. Surgical incision to the posterior cervical spine, edges are well approximated with yvette intact. Hemovac drain has been removed and new dressing has been applied. Encourage patient to be up in chair for all meals and use of incentive spirometer 10 times per hour while awake. Objective - Vital Signs Vital signs: Vital Signs Temp 98.4 F 02/02/24 07:06 Pulse 73 02/02/24 07:06 Resp 20 02/02/24 07:06 BP 103/67 02/02/24 07:06 Pulse Ox 93 L 02/02/24 07:06 FiO2 Intake & Output 02/01/24 02/02/24 02/02/24 18:59 06:59 18:59 Output Total 1100 1000 Balance -1100 -1000 Output: Drainage 0 Anterior Neck 0 Posterior Neck 0 Urine 1100 1000 Other: Voiding Method Indwelling Catheter Indwelling Catheter - Exam Physical Examination General: The patient is awake and alert, in no acute distress Skin: Skin is warm and dry with no obvious rashes or lesions. Surgical incision to the anterior cervical spine, Edges are well approximated with glue intact. FATOU drain was dislodged yesterday evening. New dressing has been applied. Surgical incision to the posterior cervical spine, edges are well approximated with yvette intact. Hemovac drain has been removed and used dressing has been applied. Eye: Pupils are equal, round and reactive to light, extra-ocular movements are intact; there is normal conjunctiva bilaterally. Neck: The neck is supple, there is mild to moderate tenderness around incision sites. ROM is limited due to surgical procedure and hard cervical collar in place. Cardiovascular: There is a regular rate and rhythm. No murmur, rub or gallop is appreciated. Respiratory: Respirations are non-labored, breath sounds are equal. Gastrointestinal: Soft, non-distended, non-tender abdomen. Back: There is no tenderness to palpation in the midline, paralumbar, parathoracic or buttocks region. There is no obvious deformity . Musculoskeletal: ROM limited secondary to pain and stiffness from surgical procedure. Right: Shoulder abduction 5/5, elbow flexors 5/5, wrist dorsiflexors 4/5. finger abductor 4/5, principal database developer 4/5, hip flexor 5/5, knee flexor 5/5, ankle dorsiflexor 5/5, ankle plantarflexion 5/5 and extensor hallucis 5/5. Left: Shoulder abduction 5/5, elbow flexors 5/5, wrist dorsiflexors 4/5. finger abductor 4/5, principal database developer 4/5, hip flexor 4-/5, knee flexor 4/5, ankle dorsiflexor 5/5, ankle plantarflexion 5/5 and extensor hallucis 5/5. Neurological: CN 2-12 intact. There are no obvious motor or sensory deficits. Movement and coordination equal and intact. Sensory exam to light touch intact C5-T1 and intact from L2-S1. Reflexes 2/4 in bilateral upper and lower extremities. Negative Hoffmans, babinski, and clonus signs. Psychiatric: Cooperative, appropriate mood & affect, normal judgment. - Labs CBC & Chem 7: 02/01/24 05:34 02/01/24 05:34 Assessment and Plan Assessment: Postop day 2: Stage I C5-C6 ACDF, Stage II C5-C7 PCDF Plan: -Appreciate health and safety consultant and team management. -Activity: Ambulate QID, OOB all meals, up and about, limit lifting bending twisting to less than 5 lbs. Use walker or cane if needed for stability. -Daily PT/OT, increase ambulation strength and balance. -Hard cervical collar on at all times, may remove for showers -Pain control: Medications have been adjusted -Meds: reviewed -GI ppx: senna, Miralax -DC maravilla This morning -DVT PPX: Heparin -Hygiene: Shower today. Maintain dressing clean and dry. -Encourage IS 10x/hr -Dispo: Clinically pending *I reviewed and discussed this case with my attending Dr. Parks, whom has reviewed this chart and films and is in agreement with assessment and plan of care as outlined above. I have personally seen and examined the patient, performed the documentation and the assessment and plan as written. Number of minutes spent on the visit: 20m.
[2024-02-02] MEDS: TAMSULOSIN 0.4 MG CAP.ER.24H PO SCH (11:40)
--- NOTE | 2024-02-02 17:16 | P.PN ---
Subjective Progress Note Date: 02/02/24 58-year-old gentleman past medical history significant for ongoing nicotine dependence, occasional marijuana use, multi valvular disease , nonischemic cardiomyopathy , multiple sclerosis, chronic back/neck pain Crohn's, anemia depression, COPD, hypertension and multiple other medical issues, status post e lective C6-C7 ACDF, large disc osteophyte complex with severe central stenosis in a patient with cervical myelopathy, C5-C6 ASD spondylosis with severe stenosis, gait dysfunction secondary to bilateral upper and lower extremity weakness, bilateral upper extremity paresthesias and radiculopathy. Tolerated procedure well. Complains of pain, specifically bilateral shoulder pain. Passing flatus. Denies chest pain, palpitations or shortness of breath. Maintaining O2 sats in the high 90s on 2 L nasal cannula. PT pending. Objective - Vital Signs Vital signs: Vital Signs Temp 98.4 F 02/02/24 07:06 Pulse 73 02/02/24 07:06 Resp 20 02/02/24 07:06 BP 103/67 02/02/24 07:06 Pulse Ox 93 L 02/02/24 07:06 FiO2 Intake & Output 02/01/24 02/02/24 02/02/24 18:59 06:59 18:59 Output Total 1100 1000 1300 Balance -1100 -1000 -1300 Output: Drainage 0 Anterior Neck 0 Posterior Neck 0 Urine 1100 1000 1300 Uretheral (Weston) 650 Other: Voiding Method Indwelling Catheter Indwelling Catheter Indwelling Catheter - Exam GENERAL: Alert and oriented x 3, sitting up in bed, no acute distress HEENT: Normocephalic, atraumatic Conjunctivae normal. eyes normal. NECK: Supple, wearing c-collar, FATOU with minimal serosanguineous drainage and Hemovac drain present. CARDIOVASCULAR: S1, S2 regular.systolic murmur. RESPIRATION: Unlabored, equal air entry, breath sounds diminished in the bases. ABDOMEN: Soft, nondistended, nontender, no guarding, no rigidity. no masses palpable. No ascites, No hepatosplenomegaly.Bowel sounds heard. LEGS: No edema. no swelling NERVOUS SYSTEM: Cranial N 2-12 grossly normal. No focal deficits. Strength and sensation grossly intact. Skin: Warm and dry, no rash , - Labs CBC & Chem 7: 02/01/24 05:34 02/01/24 05:34 Assessment and Plan Assessment: Cervical myelopathy, C5-C6 ASD spondylosis with severe stenosis, Status post C6- C7 ACDF, large disc osteophyte complex with severe central stenosis Gait dysfunction secondary to bilateral upper and lower extremity weakness, Bilateral upper extremity paresthesias, radiculopathy History of Crohn's disease COPD, stable History of Covid 19 infection in March 2022 History of migraines Chronic pain syndrome Moderate mitral regurgitation. History of nonischemic cardiomyopathy, ejection fraction 40-45% Normal coronary arteries per cardiac catheterization 01/13/2022 Plan: Continue on current medication regimen ,monitoring and symptomatic treatment. Pain management and DVT prophylaxis as per orthopedic spine.. Aggressive pulmonary toileting with incentive spirometer reinforced. PT. Smoking cessation reinforced, nicotine patch added to med regimen. Home meds reviewed and resumed accordingly.
[2024-02-03 02:52] VITALS: RESP 18
[2024-02-03 08:06] VITALS: BP 105/64; PULSE 79; TEMP 97.8
[2024-02-03 09:35] LABS: Basophils # (A) 0.06 X 10*3/uL (0.00-0.10); Basophils % (A) 0.5 %; Eosinophils # (A) 0.14 X 10*3/uL (0.04-0.35); Eosinophils % (A) 1.2 %; HCT 33.8 % (39.6-50.0); HGB 11.3 g/dL (13.0-17.0); Lymphocytes # (A) 2.27 X 10*3/uL (0.90-5.00); Lymphocytes % (A) 19.3 %; MCHC 33.4 g/dL (32.0-37.0); MCV 92.9 FL (80.0-97.0); Mean Platelet Volume 10.9 FL (9.5-12.2); Monocytes # (A) 1.17 X 10*3/uL (0.20-1.00); Monocytes % (A) 9.9 %; NRBC Per 100 WBC 0 X 10*3/uL (0.00-0.01); Neutrophils # (A) 8.08 X 10*3/uL (1.80-7.70); Neutrophils % (A) 68.8 %; Platelet Count 280 X 10*3/uL (140-440); RBC 3.64 X 10*6/uL (4.40-5.60); RDW 12.5 % (11.5-14.5); WBC 11.76 X 10*3/uL (4.50-10.00)
[2024-02-03] MEDS: CYCLOBENZAPRINE 10 MG TAB PO SCH (09:35)
[2024-02-03] MEDS: GABAPENTIN 300 MG CAP PO SCH (09:35)
[2024-02-03 09:38] LABS: Blood Urea Nitrogen 6.9 mg/dL (9.0-27.0); Calcium 8.8 mg/dL (8.7-10.3); Carbon Dioxide 27.6 mmol/L (21.6-31.8); Chloride 100 mmol/L (96-109); Glucose 92 mg/dL (70-110); Potassium 3.7 mmol/L (3.5-5.5); Sodium 136 mmol/L (135-145)
--- NOTE | 2024-02-03 11:08 | P.PN ---
Subjective Progress Note Date: 02/03/24 Principal diagnosis: 1. Cervical myelopathy 2. C5-C6 ASD spondylosis with severe stenosis 3. Status post C6-C7 ACDF, large disc osteophyte complex with severe central stenosis 4. bilateral upper extremity paresthesias and radiculopathy 5. Bilateral upper and lower extremity weakness 6. Gait disturbance 7. Neck pain Patient seen and examined this morning. Patient is resting in bed. He reports his pain is managed on current regimen. He continues to have upper extremity radiculopathy and aching pain across the bilateral shoulders. Educated patient on the use of ice therapy to alleviate pain and swelling. Surgical incisions to the anterior and posterior cervical spine, dressings are clean, dry, and intact. Patient reports some soreness in his mouth and on his tongue. There is a small white patch on the left lateral region og his tongue, representing possible thrush. Medications will be ordered. Patient reports that he would like to go home today. Encourage patient to be up in chair for all meals and use of incentive spirometer 10 times per hour while awake. Objective - Vital Signs Vital signs: Vital Signs Temp 97.8 F 02/03/24 07:22 Pulse 79 02/03/24 07:22 Resp 18 02/03/24 07:22 BP 105/64 02/03/24 07:22 Pulse Ox 93 L 02/03/24 07:22 FiO2 Intake & Output 02/02/24 02/03/24 02/03/24 18:59 06:59 18:59 Intake Total 240 Output Total 1300 350 300 Balance -1300 -110 -300 Intake: Intake, IV Titration 240 Amount Lactated Ringers 1,000 ml 240 @ 20 mls/hr IV .Q24H CANDIS Rx#:[id number] Output: Urine 1300 350 300 Uretheral ([place]) 650 Other: Voiding Method Indwelling Catheter Toilet Toilet Urinal Urinal # Voids 1 2 - Exam Physical Examination General: The patient is awake and alert, in no acute distress Skin: Skin is warm and dry with no obvious rashes or lesions. Surgical incision to the anterior and posterior cervical spine, dressings are clean, dry, and intact. Eye: Pupils are equal, round and reactive to light, extra-ocular movements are intact; there is normal conjunctiva bilaterally. Neck: The neck is supple, there is mild to moderate tenderness around incision sites. ROM is limited due to surgical procedure and hard cervical collar in place. Cardiovascular: There is a regular rate and rhythm. No murmur, rub or gallop is appreciated. Respiratory: Respirations are non-labored, breath sounds are equal. Gastrointestinal: Soft, non-distended, non-tender abdomen. Back: There is no tenderness to palpation in the midline, paralumbar, parathoracic or buttocks region. There is no obvious deformity . Musculoskeletal: ROM limited secondary to pain and stiffness from surgical procedure. Right: Shoulder abduction 5/5, elbow flexors 5/5, wrist dorsiflexors 4/5. finger abductor 4/5, senior credit officer 4/5, hip flexor 5/5, knee flexor 5/5, ankle dorsiflexor 5/5, ankle plantarflexion 5/5 and extensor hallucis 5/5. Left: Shoulder abduction 5/5, elbow flexors 5/5, wrist dorsiflexors 4/5. finger abductor 4/5, senior credit officer 4/5, hip flexor 4-/5, knee flexor 4/5, ankle dorsiflexor 5/5, ankle plantarflexion 5/5 and extensor hallucis 5/5. Neurological: CN 2-12 intact. There are no obvious motor or sensory deficits. Movement and coordination equal and intact. Sensory exam to light touch intact C5-T1 and intact from L2-S1. Reflexes 2/4 in bilateral upper and lower extremities. Negative Hoffmans, babinski, and clonus signs. Psychiatric: Cooperative, appropriate mood & affect, normal judgment. - Labs CBC & Chem 7: 02/03/24 06:41 02/03/24 06:41 Labs: Abnormal Lab Results - Last 24 Hours (Table) 02/03/24 02/03/24 Range/Units 06:41 06:41 WBC 11.76 H (4.50-10.00) X 10*3/uL RBC 3.64 L (4.40-5.60) X 10*6/uL Hgb 11.3 L (13.0-17.0) g/dL Hct 33.8 L (39.6-50.0) % Neutrophils # 8.08 H (1.80-7.70) X 10*3/uL Monocytes # 1.17 H (0.20-1.00) X 10*3/uL BUN 6.9 L (9.0-27.0) mg/dL Creatinine 0.5 L (0.6-1.5) mg/dL Assessment and Plan Assessment: Postop day 3: Stage I C5-C6 ACDF, Stage II C5-C7 PCDF Plan: -Appreciate law firm consultant and team management. -Activity: Ambulate QID, OOB all meals, up and about, limit lifting bending twisting to less than 5 lbs. Use walker or cane if needed for stability. -Daily PT/OT, increase ambulation strength and balance. -Hard cervical collar on at all times, may remove for showers, soft cervical collar ordered to wear only at night. -Pain control: Medications have been adjusted -Meds: reviewed -GI ppx: senna, Miralax -DC maravilla This morning -DVT PPX: Heparin -Hygiene: Shower today. Maintain dressing clean and dry. -Encourage IS 10x/hr -Dispo: Discharge home later today. *I reviewed and discussed this case with my attending Dr. Parks, whom has reviewed this chart and films and is in agreement with assessment and plan of care as outlined above. I have personally seen and examined the patient, performed the documentation and the assessment and plan as written. Number of minutes spent on the visit: 20m.
--- NOTE | 2024-02-03 11:20 | P.DS ---
Providers Date of admission: 01/31/24 06:45 Expected date of discharge: 02/03/24 Attending physician: Jalen Parks DO Consults: 01/31/24 13:12 Consult Physician Routine Consulting Provider: Mack Fox Reason/Comments: Medical Management Do you want consulting provider notified?: Yes Primary care physician: Mack Fox [facility] Course: Hospital Course: The patient was evaluated preoperatively and found to have the diagnosis of cervical spondylosis with stenosis. They underwent appropriate preoperative care and were willing to undergo the intended procedure. They underwent a successful Stage 1: C5-C6 ACDF, Stage 2: C5-C7 PCDF were recovered appropriately and sent to the floor. While on the floor they worked with physical therapy, occupational therapy and nursing to enhance their recovery experience. Their pain was well controlled through their stay and they were started on appropriate medications, DVT ppx modalities, activity and dietary needs. Daily labs were monitored closely, and transfusions were only used when necessary. Medicine as well as other consulting services have made their input and have helped with our team approach and multidisciplinary care. PT milestones have been met and passed and they have made the recommendation of home for this patient and treating providers agree with this care path. The patient will be discharged home with appropriate medications, instructions and follow-up information and in stable condition. Patient Condition at Discharge: Good Plan - Discharge Summary Discharge Rx Participant: Yes New Discharge Prescriptions: New cefaDROXiL [Duricef] 500 mg PO Q12HR #10 cap Gabapentin 300 mg PO TID #90 cap Cyclobenzaprine [Flexeril] 10 mg PO TID #60 tab Nystatin [Nystatin Oral Susp] 5 ml PO TID #105 ml oxyCODONE-APAP 7.5-325MG [Percocet 7.5-325 mg] 1 tab PO Q4HR PRN #40 tab PRN Reason: Pain No Action HYDROcodone/APAP 7.5-325MG [[place] 7.5-325] 1 tab PO BID Pantoprazole Sodium [Protonix] 40 mg PO DAILY rOPINIRole HCL [Requip] 1 mg PO HS Losartan [Cozaar] 25 mg PO DAILY Furosemide [Lasix] 20 mg PO BID Baclofen [Lioresal] 20 mg PO BID Albuterol Inhaler [Ventolin Hfa Inhaler] 2 puff INHALATION Q4H PRN PRN Reason: Dyspnea Spironolactone [Aldactone] 25 mg PO DAILY #30 tab Morphine Sulfate ER [Ms Contin] 30 mg PO Q12H carvediloL [Coreg] 6.25 mg PO BID DULoxetine HCL [Cymbalta] 30 mg PO HS SUMAtriptan succinate [Imitrex] 100 mg PO BID PRN PRN Reason: Migraine Headache Discharge Medication List HYDROcodone/APAP 7.5-325MG [[place] 7.5-325] 1 tab PO BID 04/17/20 [History] Pantoprazole Sodium [Protonix] 40 mg PO DAILY 04/17/20 [History] rOPINIRole HCL [Requip] 1 mg PO HS 09/17/21 [History] Spironolactone [Aldactone] 25 mg PO DAILY #30 tab 12/26/21 [Rx] Morphine Sulfate ER [Ms Contin] 30 mg PO Q12H 03/06/22 [History] carvediloL [Coreg] 6.25 mg PO BID 04/06/22 [History] DULoxetine HCL [Cymbalta] 30 mg PO HS 08/17/22 [History] Furosemide [Lasix] 20 mg PO BID 08/17/22 [History] Losartan [Cozaar] 25 mg PO DAILY 08/17/22 [History] SUMAtriptan succinate [Imitrex] 100 mg PO BID PRN 04/27/23 [History] Baclofen [Lioresal] 20 mg PO BID 10/19/23 [History] Albuterol Inhaler [Ventolin Hfa Inhaler] 2 puff INHALATION Q4H PRN 01/29/24 [History] Cyclobenzaprine [Flexeril] 10 mg PO TID #60 tab 02/03/24 [Rx] Gabapentin 300 mg PO TID #90 cap 02/03/24 [Rx] Nystatin [Nystatin Oral Susp] 5 ml PO TID #105 ml 02/03/24 [Rx] cefaDROXiL [Duricef] 500 mg PO Q12HR #10 cap 02/03/24 [Rx] oxyCODONE-APAP 7.5-325MG [Percocet 7.5-325 mg] 1 tab PO Q4HR PRN #40 tab 02/03/24 [Rx] Follow up Appointment(s)/Referral(s): Mack Fox DO [Primary Care Provider] - 1 Week Jalen Parks DO [Doctor of Osteopathic Medicine] - 2 Weeks Activity/Diet/Wound Care/Special Instructions: Spine Discharge and Recovery Instructions Date of Surgery: 01/31/24 Diagnosis: Cervical spondylosis with stenosis Procedure: Stage 1: C5-C6 ACDF, Stage 2: C5-C7 posterior decompression and stabilization Medications: See medication list All medication refills should be obtained through your primary care doctor or your clinic spine surgeon. Please discuss prescription refills at your follow up appointment. Do not call the hospital for medication refills. Activity: Encourage ambulation with assist of walker, Up and about 6-8x daily PT/OT daily work on balance, strength and mobility Up in chair with all meals Shower daily Brace: Use brace when up and about, do not wear in bed or shower Dressing: Leave your dressing in place for a total of 3 days post operatively. Then you may remove your dressing and leave open to air. Keep the area clean and if not able to keep area clean, then cover with sterile gauze and tape. Showering: You may shower 3 days after your procedure allowing soap and water to run over incision. Do not scrub. Do not soak. Blot dry. Follow up: Please confirm a follow up appointment with your surgeon 2 weeks post operatively. Please make an appointment to follow up with your PCP in 1-2 weeks after surgery for evaluation `3 phase, 3-week plan POST OP WEEKS 1-3 1. Lifting/carrying/pushing/pulling limited to less than 5 pounds. 2. Do not sit for longer than 15 minutes at one time. Get up and walk around. Prolonged sitting is NOT advised. If you lay down, see if you can tolerate laying down on you front (belly side) 3. Walk for periods of 15 minutes = 1 mile but no longer; do it multiple times times each day. 4. Ice your low back after activity. POST OP WEEKS 3-6 1. Lifting limited to less than 20 pounds. 2. Do not sit for longer than 30 minutes at a time. Frequently change positions. Use a sit-to stand workstation or take frequent breaks from sitting if you have returned to work. 3. Walk for 30 minutes each day. If possible, do these three or more times a day POST OP WEEKS 6+ At your 6-week appointment we will give you a physical therapy referral to focus on a core stabilization and strengthening program. You should also work on leg & buttock strengthening, hamstring & quadriceps stretching, and continue a low impact aerobic activity program such as swimming, walking, or riding a stationary bicycle. During the initial 6 weeks after your surgery, you are at the highest risk of re-injuring your spine. You should generally avoid BLTs (bending, lifting and twisting combination motions) and follow the above guidelines to reduce the chance of reinjury. You can anticipate post op appointments in our office at approximately 3 weeks and 6 weeks after your surgery. INCISION CARE: If your incision is not draining you do NOT need to cover it with a dressing. Keep your incision clean, dry and intact. In most cases, we apply skin glue, yvette or sutures to the incision at the time of surgery. This will be like a crust or have the appearance of a scab and will fall off in time on its own. The stitches or yvette need to be removed at 3 weeks post op appointment. You may begin to shower 3 days after surgery (this allows the glue to martínez well). However, please avoid scrubbing the incision site or peeling off any of the skin glue. This will ensure optimal healing of your incision. Also, during this time avoid soaking the incision area in water - this includes swimming pools, hot tubs or baths. No ointments, lotions or oils on the incision until your surgeon allows. Leave yvette, sutures or glue in place. Neurological dysfunction that comes on suddenly can also be a sign of a stroke. Below some common symptoms of a stroke are listed: B - balance difficulty such as sudden onset walking or leaning to one side - NEW E - eye problem such as sudden double vision or trouble seeing on one side - NEW F - Facial weakness or numbness on one side - NEW A - Arm or leg weakness or numbness on one side - NEW S - Slurred speech or difficulty with word finding - NEW T - Time is BRAIN! Call 911 as soon as you recognize these symptoms Diet: Consume a regular diet rich in vegetables and lean protein such as chicken or fish. You should consume in a ratio of approximately 20% fats|40% carbohydrates|40%protein. Vegetables, sweet potatoes, brown rice or quinoa are examples of good carbohydrates. Chips, white bread, cookies and sweets/sugar are examples of bad carbohydrates. Limit your bad carbs, go wild with good carbs. "Life's Simple 7" Guidelines as per [place] [employer] These will help you reclaim your life after surgery and chemical compounder helper in your recovery, keeping in mind your restrictions. (1) Get Active. Physical activity can help people lose weight, control high blood pressure and cholesterol, feel emotionally better, and sleep better. (2) Control Cholesterol. Avoid a diet high in saturated fat, trans fat, & cholesterol. Limit whole milk & cream, ice cream, butter, egg yolks, processed meats (like sausage and hot dogs), and fatty meats. Choose healthy foods that are low in saturated fat, trans fat and cholesterol which include: Fruits and vegetables, fiber rich grain products (like whole grain pasta and brown rice), lean meat such as chicken, fish, nuts, seeds, and legumes. (3) Eat Better. Eat small portions. Shop at the grocery with a list and do not stray from it. Tips for a healthy diet include: Limit sodium intake to less than 1500mg daily, avoid prepackaged, processed, and fast foods, choose a diet rich in fruits, vegetables, and whole grain, high fiber foods, and limit saturated & cholesterol in your diet. (4) Manage Blood Pressure. If you have high blood pressure, you should have a cuff at home so that you can check your blood pressure regularly. Be sure you have a good cuff. An arm one is generally better than a wrist one. Bring the cuff to a doctor's appointment to validate that the measurements that your cuff are taking are accurate. Take your blood pressure twice daily when you are sitting down and relaxing. Record the numbers in a log and bring this log with you to your doctors' appointments. (5) Lose Weight if your BMI is above 25. A healthy BMI is between 19-25. To calculate Your BMI, you may use a Standard BMI Calculator on the NIH BMI website: <www.nhlbi.nih.gov/guidelines/obesity/BMI/bmicalc.htm>. Weigh oneself daily. If you are overweight, set a goal to lose weight. A pound a week loss if needed is a good target. (6) Reduce Blood Sugar. Limit foods and liquids with "added sugars." (Added sugars include sucrose, fructose, glucose, maltose, dextrose, high fructose corn syrup, corn syrup, concentrated fruit juice and honey). (7) Stop Smoking. If you smoke, quitting smoking is one of the best things that you can do for your health. Smoking increases your risk of heart attack, stroke, and peripheral vascular disease, which is a build-up of plaque in your arteries. Please discard all the cigarettes and lighters in your house. Have a plan for what you will do when you have the urge to smoke. Direct and second- hand smoke shortens your life as well as the lives of your family, friends and others around you. For your health and the health of those around you, please consider quitting! Proper Bending Body Mechanics: Maintain a wide stance with one foot slightly in front of the other. Keep your back straight. Bend utilizing the strength in your hips and knees. Do not bend at the waist. Maintain the lifted object at your waist-level close to your body. Avoid lifting weight that causes immediately pain or pain anywhere in the body afterwards. Smoking/Nicotine If there was ever one thing that you could do to increase your overall health, decrease your risk of cardiovascular problems by about 39% the second you make the choice, it is to STOP SMOKING. Your body's most instant gratification is the second you stop smoking. We have all heard the studies, read the articles but it is true, smoking is extremely bad for your overall health, and moreover i t is detrimental to your bone health. Nicotine, IN ANY FORM, kills bone cells, prevents your body from healing fractures, and significantly prolongs healing after surgery. In spine surgery s pecifically, it increases your risk of not healing your bones to create a fusion and increases your risk of having a revision surgery due to this up to 60%. I know it is hard. I know it feels impossible. But there are ways. Take control of your life. We are here to help you through it. And when you are ready, ask us and we can direct you to help if you desire. Use the START Plan to Quit Smoking (please visit the Helpguide.org website listed below for more information): S = Set a quit date. Choose a date within the next 2 weeks, so you have enough time to prepare witho ut losing your motivation to quit. If you mainly smoke at work, quit on the weekend, so you have a few days to adjust to the change. T = Tell family, friends, and co-workers that you plan to quit. Let your friends and family in on your plan to quit smoking and tell them you need their support and encouragement to stop. Look for a quit ángela who wants to stop smoking as well. You can help each other get through the rough times. A = Anticipate and plan for the challenges you'll face while quitting. Most people who begin smoking again do so within the first 3 months. You can help yourself make it through by preparing ahead for common challenges, such as nicotine withdrawal and cigarette cravings. R = Remove cigarettes and other tobacco products from your home, car, and work. Throw away all your cigarettes (no emergency pack!), lighters, ashtrays, and matches. Wash your clothes and freshen up anything that smells like smoke. Shampoo your car, clean your drapes and carpet, and steam your furniture. T = Talk to your doctor about getting help to quit. Your doctor can prescribe medication to help with withdrawal and suggest other alternatives. If you can't see a doctor, you can get many products over the counter at your local pharmacy or grocery store, including the nicotine patch, nicotine lozenges, and nicotine gum. Resources for Quitting Smoking: <h ttps://www.[place].gov/documents/[facility]/Quit_Tobacco_Resources_for_patients_31348 0_7.pdf> Supplementation: Take recommended dosages of Vitamin D and Calcium to help fortify your bones and help them to heal. See your health maintenance packet for dosages and recommended levels. DVT/VTE prophylaxis: You will be given compression stockings from the hospital. Wear these daily for the first two weeks after surgery. You may take them off at night. You may be prescribed a medication to help thin your blood. Take this as directed. If you are not prescribed this medication, early and frequent ambulation has been shown to be the best prophylaxis to deep vein thrombosis and sequelae related to this event. Discharge Disposition: HOME WITH HOME HEALTH SERVICES
[2024-02-03] MEDS: NYSTATIN 100,000 UNIT/ML SUSP 500,000 UNIT/5 ML CUP PO SCH (12:22)
== END 2024-02-03 12:47 | disposition home health service (06) | DRG 454 ==
LOC: 2ORMAIN 06:45 → 4SSUR 14:44
PROVIDERS: ADMIT Orthopaedic Surgery; ATTEND Orthopaedic Surgery
PROC: 03HY32Z Insertion of Monitoring Device into Upper Artery, Percutaneous Approach (ICD-10-PCS; principal; 2024-01-31 08:15)
PROC: 4A11X4G Monitoring of Peripheral Nervous Electrical Activity, Intraoperative, External Approach (ICD-10-PCS; principal; 2024-01-31 08:15)
PROC: 4A133J1 Monitoring of Arterial Pulse, Peripheral, Percutaneous Approach (ICD-10-PCS; principal; 2024-01-31 08:15)
PROC: 3E0U0GB Introduction of Recombinant Bone Morphogenetic Protein into Joints, Open Approach (ICD-10-PCS; principal; 2024-01-31 08:15)
PROC: 0RT30ZZ Resection of Cervical Vertebral Disc, Open Approach (ICD-10-PCS; principal; 2024-01-31 08:15)
PROC: 01N10ZZ Release Cervical Nerve, Open Approach (ICD-10-PCS; principal; 2024-01-31 08:15)
PROC: 8E0WXBF Computer Assisted Procedure of Trunk Region, With Fluoroscopy (ICD-10-PCS; principal; 2024-01-31 08:15)
PROC: 0RG1071 Fusion of Cervical Vertebral Joint with Autologous Tissue Substitute, Posterior Approach, Posterior Column, Open Approach (ICD-10-PCS; principal; 2024-01-31 08:15)
PROC: 4A133B1 Monitoring of Arterial Pressure, Peripheral, Percutaneous Approach (ICD-10-PCS; principal; 2024-01-31 08:15)
PROC: 0RG10A0 Fusion of Cervical Vertebral Joint with Interbody Fusion Device, Anterior Approach, Anterior Column, Open Approach (ICD-10-PCS; principal; 2024-01-31 08:15)
DX: M50.122 Cervical disc disorder at C5-C6 level with radiculopathy (principal); G95.89 Other specified diseases of spinal cord; M47.12 Other spondylosis with myelopathy, cervical region; K50.90 Crohn's disease, unspecified, without complications; M50.022 Cervical disc disorder at C5-C6 level with myelopathy; I42.8 Other cardiomyopathies; M53.2X2 Spinal instabilities, cervical region; M48.02 Spinal stenosis, cervical region; M47.22 Other spondylosis with radiculopathy, cervical region; M40.202 Unspecified kyphosis, cervical region; M25.78 Osteophyte, vertebrae; R29.6 Repeated falls; J44.9 Chronic obstructive pulmonary disease, unspecified; Z86.14 Personal history of Methicillin resistant Staphylococcus aureus infection; Z87.01 Personal history of pneumonia (recurrent); Z91.81 History of falling; I11.0 Hypertensive heart disease with heart failure; I34.0 Nonrheumatic mitral (valve) insufficiency; I50.9 Heart failure, unspecified; F17.210 Nicotine dependence, cigarettes, uncomplicated; F32.A Depression, unspecified; F41.9 Anxiety disorder, unspecified; G35 Multiple sclerosis; G89.4 Chronic pain syndrome; Z79.899 Other long term (current) drug therapy; Z82.3 Family history of stroke; Z83.3 Family history of diabetes mellitus; Z86.16 Personal history of COVID-19; Z88.8 Allergy status to other drugs, medicaments and biological substances; Z71.6 Tobacco abuse counseling
CPT/HCPCS: 72040; 72125; 80048; 85025

== ENCOUNTER → 2024-04-21 | Outpatient (CLI) | payer MEDICARE ==
--- NOTE | 2024-04-22 16:08 | MR ---
EXAMINATION TYPE: MR pancreas wo/w con DATE OF EXAM: 04/21/2024 3:19 PM INDICATION: Patient age:Male; 58 years old; Reason for study: K86.2 CYST OF PANCREAS; [facility]. COMPARISON: MR enterography 10/19/2023, CT abdomen and pelvis 02/06/2023, 10/23/2022 TECHNIQUE: Multiplanar multi-sequence imaging was performed without and with IV contrast. The patien t was given 8.5 ccs of Gadavist intravenously and dynamic imaging was performed. Post IV contrast sub traction images were also submitted for review. FINDINGS: LOWER CHEST: No gross irregularity. ABDOMEN Liver: Stable scattered T2 hyperintense nonenhancing cysts. Gallbladder and Bile ducts: Gallstones identified measuring up to 1.3 cm. No wall thickening or surro unding fluid or fat stranding. No intra or extrahepatic biliary duct dilatation. The common bile duct measures up to 5 mm at the pancreatic head. Pancreas: Mildly prominent main pancreatic duct measuring up to 5 mm at the pancreatic head with some tortuosity. No abrupt caliber change. No distal pancreatic atrophy. No surrounding organized fluid c ollections. T2 hyperintense clustered versus multiseptated cysts within the pancreatic head measuring 3.2 x 2.7 cm (series 701, image 32). Additional smaller 4 mm T2 hyperintense pancreas body cyst (ser ies 701, image 36). No mural nodularity or enhancement identified. Spleen: Unremarkable. Adrenal glands: Unremarkable. Kidneys: No hydronephrosis. Anterior right mid kidney exophytic 1.6 cm T2/T1 hyperintense nonenhancin g cyst. Most consistent with a proteinaceous/hemorrhagic cyst. Stomach and Bowel: Unremarkable as visualized. Peritoneum: No evidence of pneumoperitoneum, free fluid, or adenopathy. Vasculature: Unremarkable. No aortic aneurysm. Abdominal wall: Unremarkable. Musculoskeletal: Postsurgical changes from right total hip arthroplasty with susceptibility artifact identified. Additional susceptibility artifact from lower lumbar spine and bilateral SI joint fixatio n hardware. IMPRESSION: Pancreatic head clustered cysts versus multi septated cyst with additional tiny cyst within the pancr eatic body. No mural nodularity or enhancement identified. No high-risk stigmata. 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 Recommend endoscopic ultrasound based on size. [facility], , 04/22/2024 4:06 PM
== END | disposition home or self-care (01) ==
LOC: RADMRIMAIN 14:16
PROVIDERS: ATTEND Internal Medicine Gastroenterology
DX: K86.2 Cyst of pancreas (principal)
CPT/HCPCS: 74183

== ENCOUNTER → 2025-01-21 | Outpatient (CLI) | payer MEDICARE ==
--- NOTE | 2025-01-24 01:46 | CT ---
EXAMINATION TYPE: CT cervical spine wo con DATE OF EXAM: 01/21/2025 10:33 AM COMPARISON: None. CLINICAL INDICATION: Male, 59 years old with history of M43.22, M26.81, PAIN IN ARMS AND NECK, pain TECHNIQUE: CT of the cervical spine is performed in the axial plane at 2 mm thick sections. Reconstr ucted images in the coronal, and sagittal plane are reviewed on the computer. Contrast used: mL of , (none if empty) Oral contrast used: (none if empty) CT DLP: 567 mGycm, Automated exposure control for dose reduction was used. FINDINGS: No acute fractures are evident. Postsurgical changes are present within the lower cervical spine with pedicle screws and fixation rods. There are postsurgical soft tissue changes with subcutaneous emphy sema present. There is a kyphosis of the lower cervical spine fixation Loss of disc height is seen the postsurgical levels. Remaining disc heights and mild diffuse narrowin g Vertebral body heights are preserved. No spinal canal stenosis is evident No neural foraminal stenosis is evident. IMPRESSION: 1. Postsurgical changes posterior cervical fusion [facility], Workstation: [facility], 01/24/2025 1:44 AM
== END | disposition home or self-care (01) ==
LOC: RADCTMAIN 10:11
PROVIDERS: ATTEND Orthopaedic Surgery
DX: M26.81 Anterior soft tissue impingement (principal); Z98.1 Arthrodesis status
CPT/HCPCS: 72125